=== PATIENT | male | born 1945 | race Caucasian/White ===

== ENCOUNTER 2024-03-04 16:06 | Outpatient (OUT) | payer MEDICARE, SELFPAY ==
[2024-03-04 16:32] LABS: Basophils Absolute Auto 0.1 10^3/uL (0.0-0.1); Basophils Percent Auto 1.6 % (0.2-2.0); Eosinophils Absolute Auto 0.3 10^3/uL (0.0-0.7); Eosinophils Percent Auto 3.6 % (0.9-7.0); Hematocrit 44.1 % (42.0-54.0); Hemoglobin 14.8 g/dL (14.0-18.0); Immature Granulocytes Abs Auto 0.01 10^3/uL (0.00-0.03); Immature Granulocytes Pct Auto 0.1 % (0.0-0.5); Lymphocytes Absolute Auto 2.2 10^3/uL (1.2-3.8); Mean Corpuscular HGB Conc 33.6 g/dL (29.9-35.2); Mean Corpuscular Hemoglobin 31.4 pg (25.9-34.0); Mean Corpuscular Volume 93.6 fL (80.0-94.0); Mean Platelet Volume 9.8 fL (9.5-13.5); Monocytes Absolute Auto 0.7 10^3/uL (0.3-0.8); Monocytes Percent Auto 9.8 % (1.7-12.0); Neutrophils Absolute Auto 4.2 10^3/uL (1.4-6.5); Neutrophils Percent Auto 55.9 % (43.0-75.0); Platelet Count 309 10^3/uL (150-450); Red Blood Count 4.71 10^6/uL (4.70-6.10); Red Cell Distribution Width 13.4 % (11.0-15.0); White Blood Count 7.5 10^3/uL (4.0-11.0)
[2024-03-04 16:57] LABS: Alanine Aminotransferase 23 U/L (16-63); Albumin Globulin Ratio 0.9; Albumin Level 3.5 g/dL (3.4-5.0); Alkaline Phosphatase 57 U/L (46-116); Anion Gap 11.1; Aspartate Amino Transferase 13 U/L (15-37); BUN Creatinine Ratio 22.5; Bilirubin Total 0.9 mg/dL (0.2-1.0); Calcium 9.1 mg/dL (8.5-10.1); Carbon Dioxide 29.8 mmol/L (21.0-32.0); Chloride 104 mmol/L (98-107); Estimated GFR (African America >60 (>=60); Estimated GFR (Non-African Ame >60 (>=60); Globulin 3.9 g/dL; Glucose 78 mg/dL (74-106); Potassium 3.9 mmol/L (3.5-5.1); Sodium 141 mmol/L (136-145); Thyroid Stimulating Hormone 3.018 uIU/mL (0.358-3.740); Total Protein 7.4 g/dL (6.4-8.2)
== END 2024-03-04 16:07 | disposition home or self-care (01) ==
LOC: LAB 16:12
PROVIDERS: PCP Family Medicine
DX: F41.9 Anxiety disorder, unspecified (principal); R41.89 Other symptoms and signs involving cognitive functions and awareness; R26.9 Unspecified abnormalities of gait and mobility; G25.0 Essential tremor; E55.9 Vitamin D deficiency, unspecified
CPT/HCPCS: 36415; 80053; 82306; 82607; 82746; 84443; 85025

== ENCOUNTER 2024-05-12 08:33 | Outpatient (OUT) | payer MEDICARE, SELFPAY ==
--- OUTSIDE RECORDS SUMMARY | 2024-05-12 08:39 | XMS_ITS | CCD ---
Author Organization [facility] Care Team Providers [facility] Former Name Role Phone LUAN DUMONT Unavailable Unavailable LUAN DUMONT Unavailable Unavailable LUAN DUMONT Unavailable Unavailable SHIVAM JOHN Unavailable Unavailable LUAN DUMONT Unavailable Unavailable MARIO, RIGO Unavailable Unavailable MARIO, RIGO Unavailable Unavailable NO FAMILY DOCTOR, NO FAMILY DOCTOR Unavailable Unavailable Ny Hoyos DO Primary Care Provider [phone] Young Dean Unavailable Ny Hoyos Unavailable Ny Hoyos DO Primary Care Provider [phone] Ny Hoyos DO Primary Care Provider [phone] Shayla Mirza Attending Unavailable Shayla Mirza Primary Care Unavailable Shayla Mirza Admitting Unavailable Kyler Wood Attending Unavailab Ny Galaviz Primary Care Unavailable [place] Consulting Unavailable Al Rogelio Raphael Admitting Unavailab Tiffany Brunson Consulting Unavailable Brittany Vanessa Consulting Unavailable Shivam Taylor Consulting Unavailable Armando Torres Consulting UnavailRomana Cisse Consulting Unavailable Yaya Perez Consulting Unavailable [place] Consulting Unavailable Karen Tavares Consulting Unavailable Tyler Ulrich Unavailable Krystina Goff Unavailable Jun Carrasco MD Primary Care Provider [phone] Ny Hoyos DO Primary Care Provider [phone] MILA ANDINO Attending Unavailable NY HOYOS Primary Care Unavailable NY HOYOS Primary Care Unavailable MILA ANDINO Attending Unavailable NY HOYOS Primary Care Unavailable MILA ANDINO Attending Unavailable PERLA CRUZ Attending Unavailable RASHEED LUCAS Attending Unavailable CHRISTINA HALE Attending Unavailable LAWSON YOUSIF Attending Unavailable UNALLOCATED, NOMS PROVIDER Referring Unava ilable RASHEED LUCAS Attending Unavailable LUPIS SPAIN Attending Unavailable UNALLOCATED, NOMS PROVIDER Referring Unava ilable ELIEZER DOUGLASS Attending Unavailable UNALLOCATED, NOMS PROVIDER Referring Unava ilable Allergies Allergy Classification Reported Allergen(s) Allergy Type Date of Onset Reaction(s) Facility Penicillins (antibiotic) (1 source) Penicillins; Translations: [PENICILLINS] Drug Allergy 4 [facility] Repository (1 source) Penicillins Drug allergy (disorder) 4 [facility] Repository (1 source) Penicillins Drug Allergy 4 [facility] (15 sources) Seasonal allergy; Translations: [SEASONAL ALLERGIES] Allergy to substance 0 Unknown [facility] Work Phone: (9 sources) Penicillin V Drug Allergy Unknown [facility] Other (14 sources) Penicillins Drug Allergy 4 [facility] (11 sources) Bee Sting; Translations: [BEE STING] Allergy to substance 1 Rash [facility] Work Phone: (1 source) Penicillins Drug allergy (disorder) 8 [facility] Repository Medications Current Medications Medication Drug Class(es) Dates Sig (Normalized) Sig (Original) aspirin 81 mg delayed release oral tablet (20 sources) Platelet Aggregation Inhibitor, Nonsteroidal Anti-inflammatory Drug take 1 tablet by mouth once daily aspirin, enteric coated (ASPIRIN, ENTERIC COATED) 81 mg EC tablet Take 81 mg by mouth once daily. 0 Active Comment on above: Take 81 mg by mouth. Take 81 mg by mouth once daily. azelastine hydrochloride 0.137 mg/actuat metered dose nasal spray (3 sources) Histamine-1 Receptor Antagonist Start: 10-18-2021 take 1 puff(s) nasal route twice daily Azelastine HCl 0.1 % 1 puff in each nostril Nasally Twice a day for 30 day(s) Oct, Active L7-fkmdm-V36-coffee- phosphatid (NEURIVA PLUS BRAIN PERFORMANCE) 1.7 mg-400 mcg- 2.4 mcg cap (4 sources) Start: 03-04-2024 take 1 capsule by mouth once daily E8-mrawt-T49-coff ee-phosphatid (NEURIVA PLUS BRAIN PERFORMANCE) 1.7 mg-400 mcg- 2.4 mcg cap Take 1 capsule by mouth once daily. 0 03/04/2024 Active benzonatate 100 mg oral capsule (1 source) Non-narcotic Antitussive Start: 10-17-2022 take 1 capsule by mouth every eight hours Benzonatate 100 MG 1 capsule as needed Orally Three times a day for 10 days Oct, Active busPIRone hydrochloride 10 mg oral tablet (17 sources) Start: 09-06-2023 take 2 tablets by mouth three times daily busPIRone (BUSPAR) 10 mg tablet Indications: Essential tremor , Anxiety Take 2 tablets (20 mg total) by mouth 3 (three) times a day. 540 tablet 4 09/06/2023 Active Start: 04-06-2023 End: 09-04-2023 take 2 tablets by mouth twice daily busPIRone (BUSPAR) 10 mg tablet Indications: Anxiety Take 2 tablets by mouth two times a day. 450 tablet 3 09/04/2023 Active Start: 08-10-2022 End: 11-09-2023 take 1 tablet by mouth three times daily busPIRone (BUSPAR) 10 mg tablet Indications: Anxiety Take 1 tablet by mouth three times daily. 270 tablet 3 11/09/2022 04/06/2023 Discontinued Start: 05-02-2022 End: 05-02-2023 take 1 tablet by mouth three times daily busPIRone (BUSPAR) 5 mg tablet Indications: Anxiety Take 1 tablet by mouth three times daily. 90 tablet 11 05/02/2022 08/10/2022 Discontinued Comment on above: Take 1 tablet by mely three times daily. Take 2 tablets in e morning and evening and 1 tablet in the afternoon Take 2 tablets by mo uth two times a day. calcium carbonate 1250 mg / cholecalciferol 200 unt oral tablet (2 sources) Vitamin D Start: 09-11-20 take 1 tablet by mouth once calcium-carbonate- vitamin D3 500 mg-5 mcg (200 unit) per tablet Take 1 tablet by mouth. 0 09/11/2023 Active cefuroxime 250 mg oral tablet (1 source) Cephalosporin Antibacterial Start: 09-11-20 21 take 1 tablet by mouth every twelve hours Cefuroxime Axetil 250 MG 1 tablet Orally every 12 hrs for 10 day(s) Sep, Active celecoxib 200 mg oral capsule (20 sources) Nonsteroidal Anti-inflammatory Drug Start: 09-06-20 End: 11-21-19 24 take 1 capsule by mouth in the morning celecoxib (CeleBREX) 200 mg capsule Indications: Arthritis TAKE 1 CAPSULE BY MOUTH IN THE MORNING then TAKE 1 CAPSULE BY MOUTH BEFORE bedtime 90 capsule 4 11/21/2023 Active End: 04-22-2024 take 1 capsule by mouth once daily celecoxib (CELEBREX) 200 mg capsule Take 200 mg by mouth once daily. 0 04/22/2024 Discontinued take 1 capsule by mo [facility] twice daily celecoxib (CELEBREX) 200 mg capsule Take 200 mg by mouth twice daily. 0 Active Comment on above: Take 200 mg by mouth twice daily. Take 200 mg by mouth once daily. cholecalciferol 0.125 mg oral capsule (5 sources) Vitamin D Start: 08-24-20 23 take 1 capsule by mouth once daily in the morning Cholecalciferol, Vitamin D3, 125 mcg (5,000 unit) cap Take 1 capsule by mouth every morning. 0 08/24/2023 Active Comment on above: Take 1 capsule by mo [facility] every morning. docusate sodium 100 mg oral capsule (14 sources) Start: 03-11-20 15 take 1 capsule by mouth every twelve hours as needed docusate sodium (COLACE) 100 mg capsule Take 1 capsule by mouth twice daily as needed for Constipation. 60 capsule 0 03/11/2015 Active Comment on above: Take 1 capsule by mo [facility] twice daily as needed for Constipation. fluticasone propionate 0.05 mg/actuat metered dose nasal spray (20 sources) Corticosteroid Start: 09-06-20 23 take 1 spray(s) nasal route in the morning fluticasone propionate (FLONASE) 50 mcg/actuation nasal spray Indications: Allergic rhinitis due to other allergic trigger, unspecified seasonality Administer 1 spray into each nostril in the morning. 36.4 mL 4 09/06/2023 Active take 1 spray(s) nasal route once daily fluticasone (FLONASE) 50 mcg/actuation nasal spray Use 1 [place] in each nostril once daily. 0 Active take 1 spray(s) nasal route once daily Flonase 50 MCG/ACT 1 spray in each nostril Nasally Once a day for 30 day(s) Active Comment on above: Use 1 [place] in each nostril once daily. Neuriva - (1 source) Neuriva - as dir ected Orally Active omeprazole 20 mg delayed release oral capsule (13 sources) Proton Pump Inhibitor Start: 3 take 1 capsule by mouth in the morning omeprazole (PriLOSEC) 20 mg capsule Indications: Gastroesophageal reflux disease, unspecified whether esophagitis present Take 1 capsule (20 mg total) by mouth in the morning. 90 capsule 4 09/06/2023 Active Comment on above: Take 20 mg by mouth once daily. predniSONE 20 mg oral tablet (4 sources) Start: 3 take 1 tablet by mouth every twelve hours predniSONE 20 MG 1 tablet Orally bid for 5 day(s) March, Active Start: 10-18-2021 take 2 tablets by mo [facility] every twenty-four hours predniSONE 20 MG 2 tablets Orally Once a day for 5 days Oct, Active tamsulosin hydrochloride 0.4 mg oral capsule (1 source) alpha-Adrenergic Yuli take 1 capsule by mouth once daily tamsulosin (FLOMAX) 0.4 mg capsule,extended release 24hr Take 0.4 mg by mouth nightly. 0 Active tiZANidine 2 mg oral tablet (1 source) Central alpha-2 Adrenergic Agonist Start: 023 take 1 tablet by mouth every eight hours tiZANidine HCl 2 MG 1 tablet as needed Orally Three times a day March, Active Completed/Discontinued Medications Medication Drug Class(es) Dates Sig (Normalized) Sig (Original) ALPRAZolam 0.25 mg oral tablet (2 sources) Benzodiazepine Start: 07-26-2023 End: 03-05-2024 take 1 tablet by mouth twice daily at bedtime ALPRAZolam (XANAX) 0.25 mg tablet TAKE 1 TABLET BY MOUTH TWICE DAILY (IN THE MORNING and AT BEDTIME) 0 07/26/2023 03/05/2024 Discontinued (Discontinued by another Health Care Provider) Comment on above: TAKE 1 TABLET BY MELY TH TWICE DAILY (IN THE MORNING and AT BEDTIME) atorvastatin 80 mg oral tablet (20 sources) HMG-CoA Reductase Inhibitor Start: 02-08-2023 End: 03-05-2024 atorvastatin (LIPITOR) 80 mg tablet 0.5 tablets once daily. 0 02/08/2023 03/05/2024 Discontinued Start: 01-17-2023 End: 02-08-2023 atorvastatin (LIPITOR) 80 mg tablet Start: 07-18-2021 End: 02-08-2023 take 1 tablet by mouth every twenty-four hours atorvastatin (LIPITOR) 40 mg tablet Take 1 tablet by mouth q 24 HR. 0 11/09/2022 02/08/2023 Discontinued Start: 07-18-2021 take 1 tablet by mely th every twenty-four hours Lipitor 20 MG 1 tablet Orally Once a day for 90 day(s) Jul, Not-Taking End: 05-01-2022 atorvastatin calcium (ATORVA STATIN ORAL) Take by mouth. 0 05/01/2022 Discontinued atorvastatin jolene cium (ATORVASTATIN ORAL) Take by mouth. 0 Active Comment on above: Take by mouth. Take 40 mg by mouth q 24 HR. Take 1 tablet by mely th q 24 HR. 0.5 tablets once sam ly. B6/folic/B12/coffee/ph osphatid (NEURIVA PLUS ORAL) (3 sources) End: 04-22-2024 B6/folic/B12/coffee/phosph atid (NEURIVA PLUS ORAL) Take by mouth. 0 04/22/2024 Discontinued End: 05-01-2022 B6/folic/B12/coffee/phosphat id (NEURIVA PLUS ORAL) Take by mouth once daily. 0 05/01/2022 Discontinued B6/folic/B12/cof fee/phosphatid (NEURIVA PLUS ORAL) Take by mouth once daily. 0 Active Comment on above: Take by mouth once d aily. 0.5 ml rimabotulinumtoxinb 5 000 unt/ml injection (3 sources) Start: 08-10-2022 End: 08-10-2022 botulinum toxin type b 2,500 Units injection (MYOBLOC) Start: 08-10-2022 End: 08-10-2022 botulinum toxin type b 5,000 Units injection (MYOBLOC) Start: 05-02-2022 End: 05-02-2022 botulinum toxin type b 5,000 Units injection (MYOBLOC) cetirizine hydrochloride 10 mg oral tablet (8 sources) Histamine-1 Receptor Antagonist Start: 01-18-2022 End: 11-09-2022 take 1 tablet by mouth once daily cetirizine (ZYRTEC) 10 mg tablet Take 10 mg by mouth once daily. 0 01/18/2022 11/09/2022 Discontinued Start: 10-18-2021 take 1 capsule by mo [facility] every twenty-four hours ZyrTEC Allergy 10 MG 1 capsule Orally Once a day for 90 days Oct, Active Comment on above: Take 10 mg by mouth once daily. fexofenadine hydrochloride 180 mg oral tablet (4 sources) Histamine-1 Receptor Antagonist Start: 3 End: 3 take 1 tablet by mouth once daily fexofenadine (JENNY ALLERGY) 180 mg tablet Take 1 tablet by mouth once daily. 0 02/08/2023 09/04/2023 Discontinued (Course of therapy completed) Comment on above: [facility]. Toradol 30 mg/ml (1 source) Start: 3 Toradol 30 mg/ml March, 30 mg Problems Active Problems Problem Classification Problem Date Documented Date Episodic/Chronic Anxiety disorders (8 sources) Anxiety; Translations: [Anxiety disorder, unspecified] Onset: 05-31-2023 Chronic Cardiac dysrhythmias (2 sources) Unspecified atrial flutter; Translations: [Paroxysmal atrial fibrillation] Onset: 08-15-2018 Chronic Disorders of lipid metabolism (10 sources) Mixed hyperlipidemia; Translations: [Mixed hyperlipidemia] Onset: 10-18-2021 Resolved: 10-18-2021 Chronic Esophageal disorders (1 source) Esophageal disorders Onset: 08-15-2018 Hyperplasia of prostate (15 sources) Benign prostatic hypertrophy with outflow obstruction; Translations: [Benign prostatic hyperplasia with lower urinary tract symptoms] Onset: 04-07-2016 04-07-2016 Chronic Nutritional deficiencies (2 sources) Vitamin D deficiency; Translations: [Vitamin D deficiency, unspecified] 11-21-2023 Chronic Osteoarthritis (10 sources) Arthritis; Translations: [Unspecified osteoarthritis, unspecified site] 11-21-2023 Chronic Other hereditary and degenerative nervous system conditions (20 sources) Essential tremor; Translations: [Essential tremor] Onset: 09-29-2014 09-29-2014 Chronic Other hereditary and degenerative nervous system conditions (9 sources) Intention tremor; 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] Chronic Other hereditary and degenerative nervous system conditions (2 sources) Isolated cervical dystonia; 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 Other hereditary and degenerative nervous system conditions (1 source) Essential tremor; Translations: [Essential tremor] Onset: 09-29-2014 Chronic Other nervous system disorders (1 source) Abnormal gait; Translations: [Unspecified abnormalities of gait and mobility] 03-04-2024 Episodic Other nervous system disorders (1 source) Impaired cognition; Translations: [Other symptoms and signs involving cognitive functions and awareness] 03-04-2024 Episodic Other skin disorders (9 sources) Excessive sweating; Translations: [Generalized hyperhidrosis] Episodic Other upper respiratory disease (9 sources) Seasonal allergy; Translations: [Other seasonal allergic rhinitis] Chronic Other upper respiratory disease (2 sources) Other seasonal allergic rhinitis Onset: 10-18-2021 Resolved: 12-19-2021 Chronic Other upper respiratory infections (9 sources) Upper respiratory infection; Translations: [URI (upper respiratory infection)] Episodic Residual codes; unclassified (1 source) Presence of other specified functional implants; Translations: [S/P deep brain stimulator placement] Onset: 02-29-2016 Chronic Sprains and strains (1 source) Strain of muscle, fascia and tendon of lower back, initial encounter Episodic Unclassified (1 source) Encounter for preprocedural cardiovascular examination / Z01.810(ICD-9) Onset: 08-15-2018 Unclassified (1 source) Paroxysmal tachycardia, unspecified / I47.9(ICD-9) Onset: 08-15-2018 Unclassified (1 source) Cardiomegaly / I51.7(ICD-9) Onset: 08-15-2018 Unclassified (1 source) Personal history of nicotine dependence / Z87.891(ICD-9) Onset: 08-15-2018 Unclassified (1 source) Cardiomyopathy, unspecified / I42.9(ICD-9) Onset: 08-15-2018 Unclassified (1 source) Sleep apnea, unspecified / G47.30(ICD-9) Onset: 08-15-2018 Unclassified (2 sources) Unspecified atrial flutter / I48.92(ICD-9) Onset: 08-15-2018 Unclassified (1 source) Overweight / E66.3(ICD-9) Onset: 08-15-2018 Unclassified (1 source) Body mass index (BMI) 27.0-27.9, adult / Z68.27(ICD-9) Onset: 08-15-2018 Unclassified (1 source) snf (current) use of aspirin / Z79.82(ICD-9) Onset: 08-15-2018 Unclassified (1 source) Allergy status to penicillin / Z88.0(ICD-9) Onset: 08-15-2018 Unclassified (1 source) Presence of unspecified artificial knee joint / Z96.659(ICD-9) Onset: 08-15-2018 Unclassified (1 source) Tremor, unspecified / R25.1(ICD-9) Onset: 08-15-2018 Unclassified (1 source) APPOINTMENT CANCELLED Unclassified (1 source) H53.8 - Other visual disturbances; Translations: [H53.8 - Other visual disturbances] Onset: 04-20-2022 Unclassified (1 source) R25.1 - Tremor, unspecified; Translations: [R25.1 - Tremor, unspecified] Onset: 03-11-2022 Past or Other Problems Problem Classification Problem Date Documented Date Episodic/Chronic Calculus of urinary tract (20 sources) Ureteric stone; Translations: [Calculus of ureter] Onset: 02-25-2015 03-11-2015 Episodic Disorders of teeth and jaw (1 source) Arthralgia of right temporomandibular joint Onset: 10-18-2021 Resolved: 10-18-2021 Episodic Genitourinary symptoms and ill-defined conditions (20 sources) Microscopic hematuria; Translations: [Other microscopic hematuria] Onset: 03-23-2015 03-23-2015 Episodic Headache; including migraine (20 sources) Headache; Translations: [Persistent headaches] Onset: 12-29-2014 12-29-2014 Episodic Immunizations and screening for infectious disease (1 source) Contact with and (suspected) exposure to other viral communicable diseases Onset: 09-11-2021 Resolved: 09-11-2021 Episodic Lymphadenitis (1 source) Nonspecific lymphadenitis, unspecified Onset: 09-11-2021 Resolved: 09-11-2021 Episodic Mood disorders (1 source) Mood disorders Onset: 07-19-2023 07-19-2023 Other aftercare (1 source) Encounter for removal of sutures Onset: 01-16-2022 Resolved: 01-16-2022 Episodic Other circulatory disease (14 sources) H/O: atrial fibrillation; Translations: [Personal history of other diseases of the circulatory system] Onset: 12-06-2017 12-06-2017 Episodic Other connective tissue disease (1 source) Unspecified symptoms and signs involving the nervous system; Translations: [R29.90 - Unspecified symptoms and signs involving the nervous system] Onset: 03-11-2022 Episodic Spondylosis; intervertebral disc disorders; other back problems (4 sources) Cervicalgia; Translations: [CERVICALGIA] Onset: 04-06-2017 Episodic Unclassified (1 source) Cough R05.9 Viral infection (1 source) COVID-19 Results Test Name Value Interpretation Reference Range Facility [facility] 04-22-2024 CNOV Office Visit (NRMDN) ---- YORDAN MARROQUIN ([id number]) 1945 M Date Time Provider Department 04/22/24 2:30 PM MILA ANDINO During your visit today, we recorded the following information about you: Pulse Blood pressure Weight Height 60/minute 116/57 97.5 kg 1.88 m Mila Andino APRN.CNP 04/22/2024 6:48 PM Signed [facility] - FOLLOW UP EVALUATION Ny Hoyos, [address] [facility] [place] [address] Dear Ny Hoyos, DO: I had the pleasure of seeing Mr. Marroquin for follow-up today. As you know he is a 78 year old left-handed male with a history of essential tremor since 2008. He had Right VIM DBS implanted in 2013. His battery was last replaced in January 2022 with an RC. He is seen alone. Subjective 03/04/2024 Visit: Essential tremor/DBS: Continue on current settings and I will bring you in again soon for a longer appointment Anxiety: Continue Buspar one tablet two times daily Imbalance: I have ordered physical therapy. Please let me know once you have the appointment scheduled and where and who it is with, as I would like to call them and discuss. I then may possibly order some tests. Cognition: I have ordered labs looking for contributing causes and will order an MRI as well Interval History: He said his hand tremor is pretty good and the problems he has is more related to the head tremor such as when he is eating. His head moves so much that it is hard to get the food to his mouth because it is a moving target. Anxiety has been much better. Balance is still a problem but he has not had falls. He said his memory is a little better. He is taking Neuriva. Two was too much, but taking one seems to help. Movement Disorders Medications Schedule - as of the start of the visit: Medications 6am 6pm Buspar 10mg 1 1 Questionnaires: In addition, the following activities of daily living that may be affected by tremors were evaluated: Speaking: Swallowing is ok Feeding: Not affected Bringing Liquids to Mouth: Hygiene: Not affected Dressing: Not affected Writing: Affected (severe) Working: Affected (moderate) Number of falls in the Last Month: 0 In addition, the following areas that may be affected by abnormal involuntary movements were evaluated: Daily activities Difficulties with eating: Difficulties in dressing: Difficulties with hygiene activities: Difficulties with handwriting: Difficulties with doing hobbies and other activities: Difficulties turning in bed: Difficulties getting out of bed, car or chair: Tremors/Gait/Balanc e Shaking or tremors: Walking and balance problems: Number of falls in the Last Month: 0 Gait freezing: Autonomic/Pain Lightheadeness on standing: Urinary problems: Constipation problems: Pain and other sensations: Speech/Swallowing Speech problems: Drooling: Chewing and swallowing problems: Sleep/Fatigue Sleep problems: Daytime sleepiness: Fatigue: Mood/Behavior Depression: PHQ-9 Score: 2 usually representing no significant (0-4) depression. Anxiety: JOEY-7 Total Score: 2 usually representing no significant (0-4) anxiety. Buspar is really helping. Finally, the following table shows the patient's overall global physical and mental health using the PROMIS scale: PROMIS-10 Flowsheet Row Office Visit from 03/04/2024 in Neurology Office Visit from 02/08/2023 in Neurology Global Physical Health T Score 50.8 42.3 Global Mental Health T Score 43.5 45.8 0-10 Standard Pain Scale 3 2 *PROMIS-10 scoring scale: mean = 50, over 50 is above average, under 50 is below average ALLERGIES Allergen Reactions Bee Sting Rash Penicillins Hives Seasonal Allergies Unknown Current Outpatient Medications Medication Sig dtokbzc-oheslupau-x itamin D3 500 mg-5 mcg (200 unit) per tablet Take 1 tablet by mouth. L1-vciyx-O55-coffee -phosphatid (NEURIVA PLUS BRAIN PERFORMANCE) 1.7 mg-400 mcg- 2.4 mcg cap Take 1 capsule by mouth once daily. busPIRone (BUSPAR) 10 mg tablet Take 2 tablets by mouth two times a day. Cholecalciferol, Vitamin D3, 125 mcg (5,000 unit) cap Take 1 capsule by mouth every morning. omeprazole (PRILOSEC) 20 mg capsule Take 20 mg by mouth once daily. aspirin, enteric coated (ASPIRIN, ENTERIC COATED) 81 mg EC tablet Take 81 mg by mouth once daily. fluticasone (FLONASE) 50 mcg/actuation nasal spray Use 1 [place] in each nostril once daily. docusate sodium (COLACE) 100 mg capsule Take 1 capsule by mouth twice daily as needed for Constipation. No current facility-administer ed medications for this visit. Objective Vital Signs: BP 116/57 (BP Site: Right Arm, BP Position: Sitting, BP Cuff Size: Regular Adult) Pulse 60 Ht 188 cm (6' 2 ) Wt 97.5 kg (214 lb 15.2 oz) SpO2 97% BMI 27.60 kg/m? Orthostatic Vitals: None for this encounter Weight: 97.5 (more content not included)... Normal [facility] CNCOon 04-09-2024 CNCO Letter Text [facility] 04-09-2024 CNPN Telephone ([facility]) ---- RODOLFOYORDAN Costello ([id number]) 1945 M Date Time Provider Department 04/09/24 MILA ANDINO During your visit today, we recorded the following information about you: Estrella Caballero MA 04/09/2024 3:01 PM Signed At appointment time, 3p, pt was not checked in. Went to lobby/waiting room and hallway to call for pt. Pt was not in either location. Allergies As of Date: 04/09/2024 Noted Allergy Reaction BEE STING 11/01/2021 2 - Rash PENICILLINS 03/16/2014 4 - Hives SEASONAL ALLERGIES 04/29/2020 16 - Unknown Date Reviewed: 03/04/2024 Reviewed by: Mila Andino APRN.[employer] - Fully Assessed Reason for Visit: Appointment [[id number]] Prescriptions as of 04/09/2024 - C4-woodx-P24-coffee -phosphatid (NEURIVA PLUS BRAIN PERFORMANCE) 1.7 mg-400 mcg- 2.4 mcg cap Take 1 capsule by mouth once daily. - busPIRone (BUSPAR) 10 mg tablet Take 2 tablets by mouth two times a day. - Cholecalciferol, Vitamin D3, 125 mcg (5,000 unit) cap Take 1 capsule by mouth every morning. - omeprazole (PRILOSEC) 20 mg capsule Take 20 mg by mouth once daily. - celecoxib (CELEBREX) 200 mg capsule Take 200 mg by mouth once daily. - aspirin, enteric coated (ASPIRIN, ENTERIC COATED) 81 mg EC tablet Take 81 mg by mouth once daily. - fluticasone (FLONASE) 50 mcg/actuation nasal spray Use 1 [place] in each nostril once daily. - docusate sodium (COLACE) 100 mg capsule Take 1 capsule by mouth twice daily as needed for Constipation. 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 Looks like they are available in CareEverywhere. Mila Andino APRN.[employer] 03/05/2024 4:47 PM Signed I reviewed the labs and these are wnl except his Vit D level is still low. I will have him contacted to follow up with his primary care provider about this and then the labs will be faxed to the primary care provider as well. Mila Andino APRN-Lucy Hurtado RN 03/06/2024 9:55 AM Signed Call to patient. Message from provider given PCP is Dr. Lucas on [address] in [facility] Phone number [phone] Fax number [phone] Labs faxed with confirmation of transmission received Allergies As of Date: 03/05/2024 Noted Allergy Reaction BEE STING 11/01/2021 2 - Rash PENICILLINS 03/16/2014 4 - Hives SEASONAL ALLERGIES 04/29/2020 16 - Unknown Date Reviewed: 03/04/2024 Reviewed by: Mila Andino APRN.[employer] - Fully Assessed Reason for Visit: Results [95] Cmt: Labs Prescriptions as of 03/06/2024 - Z1-ifmub-F23-coffee -phosphatid (NEURIVA PLUS BRAIN PERFORMANCE) 1.7 mg-400 mcg- 2.4 mcg cap Take 1 capsule by mouth once daily. - busPIRone (BUSPAR) 10 mg tablet Take 2 tablets by mouth two times a day. - Cholecalciferol, Vitamin D3, 125 mcg (5,000 unit) cap Take 1 capsule by mouth every morning. - omeprazole (PRILOSEC) 20 mg capsule Take 20 mg by mouth once daily. - celecoxib (CELEBREX) 200 mg capsule Take 200 mg by mouth once daily. - aspirin, enteric coated (ASPIRIN, ENTERIC COATED) 81 mg EC tablet Take 81 mg by mouth once daily. - fluticasone (FLONASE) 50 mcg/actuation nasal spray Use 1 [place] in each nostril once daily. - docusate sodium (COLACE) 100 mg capsule Take 1 capsule by mouth twice daily as needed for Constipation. 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, N13.8] 04/07/2016 Recurrent nephrolithiasis [N20.0] 04/07/2016 History of atrial fibrillation [Z86.79] 12/06/2017 Encounter Status:Closed by [facility]05[facility] ---- YORDAN MARROQUIN ([id number]) 1945 M Date Time Provider Department 03/04/24 1:30 PM MILA ANDINO During your visit today, we recorded the following information about you: Pulse Blood pressure Weight Height 62/minute 113/65 98.3 kg 1.88 m Mila Andino APRN.[facility] 03/05/2024 12:54 PM Signed [facility] - FOLLOW UP EVALUATION Ny Hoyos DO [address] [facility] [place] [address] Dear Ny Hoyos DO: I had the pleasure of seeing Mr. Marroquin for follow-up today. As you know he is a 78 year old left-handed male with a history of essential tremor since 2008. He had Right VIM DBS implanted in 2013. His battery was last replaced in January 2022 with an RC. He is seen with his . Subjective Previous Plan-09/04/2023 Visit: Essential tremor/DBS: Continue current settings (the ones from last visit that you asked to be placed back on), but if you feel you need programming, please let me know. Anxiety: Continue Buspar 10mg two tablets two times daily at the times below Updated Movement Disorders Medication Schedule: Medications 6am 4pm Buspar 10mg 2 2 Interval History: His balance has been worse and he had a fall. He last had physical therapy a few years ago. He and his feel his cognition is worse. Taking two Buspar two times daily made him spacey so he is now taking it one tablet two times daily and feels it is fairly well controlling the anxiety. Movement Disorders Medications Schedule - as of the start of the visit: Medications 6am 4pm Buspar 10mg 2 2 Questionnaires: In addition, the following activities of daily living that may be affected by tremors were evaluated: Speaking: Not affected Feeding: Affected (moderate) Bringing Liquids to Mouth: Affected (marked) Hygiene: Not affected Dressing: Not affected Writing: Affected (mild) Working: Affected (mild) Number of falls in the Last Month: 01 Mood/Behavior Depression: PHQ-9 Score: 1 usually representing no significant (0-4) depression. Anxiety: JOEY-7 Total Score: 7 usually representing mild (5-9) anxiety. Finally, the following table shows the patient's overall global physical and mental health using the PROMIS scale: PROMIS-10 Flowsheet Row Office Visit from 03/04/2024 in Neurology Office Visit from 02/08/2023 in Neurology Global Physical Health T Score 50.8 42.3 Global Mental Health T Score 43.5 45.8 0-10 Standard Pain Scale 3 2 *PROMIS-10 scoring scale: mean = 50, over 50 is above average, under 50 is below average ALLERGIES Allergen Reactions Bee Sting Rash Penicillins Hives Seasonal Allergies Unknown Current Outpatient Medications Medication Sig busPIRone (BUSPAR) 10 mg tablet Take 2 tablets by mouth two times a day. Cholecalciferol, Vitamin D3, 125 mcg (5,000 unit) cap Take 1 capsule by mouth every morning. omeprazole (PRILOSEC) 20 mg capsule Take 20 mg by mouth once daily. celecoxib (CELEBREX) 200 mg capsule Take 200 mg by mouth once daily. aspirin, enteric coated (ASPIRIN, ENTERIC COATED) 81 mg EC tablet Take 81 mg by mouth once daily. fluticasone (FLONASE) 50 mcg/actuation nasal spray Use 1 [place] in each nostril once daily. docusate sodium (COLACE) 100 mg capsule Take 1 capsule by mouth twice daily as needed for Constipation. T9-eczvt-R30-coffee -phosphatid (NEURIVA PLUS BRAIN PERFORMANCE) 1.7 mg-400 mcg- 2.4 mcg cap Take 1 capsule by mouth once daily. No current facility-administer ed medications for this visit. Objective Vital Signs: BP 113/65 (BP Site: Right Arm, BP Position: Sitting, BP Cuff Size: Regular Adult) Pulse 62 Ht 188 cm (6' 2 ) Wt 98.3 kg (216 lb 11.4 oz) SpO2 97% BMI 27.82 kg/m? Orthostatic Vitals: None for this encounter No LMP for male patient. Body mass index is 27.82 kg/m?. Movement Disorders Scales Performed: Donovan Cognitive Assessment (MoCA) Visuospatial/Execut mónica 2 Naming 3 Attention 6 Language 0 Abstraction 1 Delayed Memory 2 Orientation 6 Education < or equal to 12 years (1 is true, 0 is false) 1 MoCA Total Score 21 Aall-Tdnywx-Lrbbs Tremor Scale Voice Tremor Action and Intention: 0 - None. Head Tremor At Rest: 4 - Severe amplitude. Posture Holding: Action and Intention: RUE Tremor At Rest: 0 - None. Posture Holdin - None. Action and Intention: 1 - Slight. May be intermittent. LUE Tremor At Rest: 0 - None. Posture Holdin - None. Action and Intention: 1 - Slight. May be intermittent. Trunk Tremor At Rest: 0 - None. Posture Holding: RLE Tremor At Rest: 0 - None. Posture Holding: Action and Intention: LLE Tremor At Rest: 0 - None. Upper extremity strength is 5/5. Negative Peter's. Pertinent Studies 04/19/21 B12 [id number] 06/09/[address] Impression: Right DBS placement with resolution of pneumocephalus. No acute (more content not included)... Normal [facility] CNOVon 09-04-2023 CNOV Office Visit (NRMDN) ---- YORDAN MARROQUIN ([id number]) 1945 M Date Time Provider Department 09/04/23 11:00 AM MILA ANDINO During your visit today, we recorded the following information about you: Pulse Blood pressure Weight Height 63/minute 129/69 95.1 kg 1.88 m Mila Andino APRN.[employer] 09/04/2023 11:18 AM Signed [facility] - [place] [address] [place] [address] [place] [address] Dear Ny Hoyos DO: I had the pleasure of seeing Mr. Marroquin for follow-up today. As you know he is a 77 year old left-handed male with a history of essential tremor since 2008. He had Right VIM DBS implanted in 2013. His battery was last replaced in January 2022 with an RC. He is seen alone. Subjective Previous Plan-02/08/2023 Visit: Essential tremor/DBS: I have changed your settings today. You do have the ability, if needed, to go up by one push every 3-5 days. If you have any side effects, go back to the last tolerated setting and let me know. Please do not increase it if your tremor is well controlled. If you have any problem with these new settings (GROUP B) and need to return to the settings you came in on (GROUP A), you can do this with the following steps: -Push the [place] check button and then hold the recreation programmer up to your battery. -Using the navigator pad at the bottom of your recreation programmer, push the down arrow to put the rectangular box on the screen around the line with the letter B. -Next, push the right side arrow on the navigator pad. You will now see letters A and B. Use either the up arrow or the down arrow on the navigator pad to move the rectangular box around the desired group (Again, GROUP B is the new settings and GROUP A is the settings you came in on). -Push the [place] check button and then hold the recreation programmer up to your battery. You should now be on GROUP A. Anxiety: Increase Buspar to 10mg three times daily. If you do not tolerate it, please go back to two times daily and let me know. Patient's perception of importance for healthcare provider to let them know of research trials for which they may be eligible? Very Important Interval History: He said the most recent settings did not help as much and he wants to go back to the old settings. He has been going to [employer] three times a week and this is helping his balance. He has not had any falls. He did not tolerate more than a total of 40mg/daily of Buspar so he has settled at two tablets of the 10mg two times daily. He was prescribed Xanax elsewhere but takes it only rarely. Movement Disorders Medications Schedule - as of the start of the visit: Medications 6am 1pm Bedtime Buspar 10mg 1 1 1 ALLERGIES Allergen Reactions Bee Sting Rash Penicillins Hives Seasonal Allergies Unknown Current Outpatient Medications Medication Sig atorvastatin (LIPITOR) 80 mg tablet 0.5 tablets once daily. omeprazole (PRILOSEC) 20 mg capsule Take 20 mg by mouth once daily. celecoxib (CELEBREX) 200 mg capsule Take 200 mg by mouth once daily. aspirin, enteric coated (ASPIRIN, ENTERIC COATED) 81 mg EC tablet Take 81 mg by mouth once daily. fluticasone (FLONASE) 50 mcg/actuation nasal spray Use 1 [place] in each nostril once daily. docusate sodium (COLACE) 100 mg capsule Take 1 capsule by mouth twice daily as needed for Constipation. busPIRone (BUSPAR) 10 mg tablet Take 2 tablets by mouth two times a day. Cholecalciferol, Vitamin D3, 125 mcg (5,000 unit) cap Take 1 capsule by mouth every morning. ALPRAZolam (XANAX) 0.25 mg tablet TAKE 1 TABLET BY MOUTH TWICE DAILY (IN THE MORNING and AT BEDTIME) No current facility-administer ed medications for this visit. Objective Vital Signs: BP 129/69 (BP Site: Right Arm, BP Position: Sitting, BP Cuff Size: Regular Adult) Pulse 63 Ht 188 cm (6' 2 ) Wt 95.1 kg (209 lb 9.6 oz) SpO2 95% BMI 26.91 kg/m? Orthostatic Vitals: None for this encounter Weight: 95.1 kg (209 lb 9.6 oz) Height: 188 cm (6' 2 ) No LMP for male patient. Body mass index is 26.91 kg/m?. Movement Disorders Scales Performed: Ofwo-Jdflvx-Graxc Tremor Scale Face Tremor At Rest: 2 - Moderate amplitude. May be intermittent Voice Tremor Action and Intention: 0 - None. Head Tremor At Rest: 3 - Marked amplitude. Posture Holdin - Marked amplitude. Action and Intention: RUE Tremor At Rest: 0 - None. Posture Holdin - Moderate amplitude. May be intermittent. Action and Intention: 3 - Marked amplitude. LUE Tremor At Rest: 0 - None. Posture Holdin - Moderate amplitude. May be intermittent. Action and Intention: 3 - Marked amplitude. Trunk Tremor At Rest: 0 - None. Posture Holding: RLE Tremor At Rest: 0 - None. Posture Holding: Action and Intention: LLE Tremor At Rest: 0 - None. Pertinent Studies 6/ (more content not included)... Normal [facility] COVID + FLU Quick Testingon 10-17-2022 SARS-CoV-2 (COVID-19) RNA LARISSA+probe Ql (Unsp spec) Positive [facility] Other COVID + FLU Quick Testing Negative [facility] Other [facility] echo transthoracicon [facility] echo transthoracic [facility] Main [place] [address] [place] [address] Echocardiogram Signed Patient: Yordan Marroquin SR MR#: [id number] : 1945 Acct:[id number] Age/Sex: 76 / M ADM Date: 03/11/22 Loc: Room: [address] [place] [address] Type: DIS INOo Attending Dr: Kyler Wood MD Ordering Provider: Zaki Cali DO Date of Service: 03/13/22/ [facility] echo transthoracic: CVA Copies to: DO Juanjose Sanchez MD Height: 75 in Weight: 208 lb Performed By: SYD Isaacs BSA: 2.2 m2 BP: 160/79 mmHg HR: 101 Reason For Study: CVA History: A-Fib., HTN, Hyperlipidemia, Former Smoker, Ablation, Brain Stimulator Interpretation Summary Ejection Fraction = 55-60%. The left ventricular wall motion is normal. Mild concentric left ventricular hypertrophy. A variety of Doppler measurements indicate impaired left ventricular relaxation, which is associated with grade I/IV or mild diastolic dysfunction. Compared to prior study, there is no significant change. Procedure/Quality: A two-dimensional transthoracic echocardiogram with color flow and Doppler was performed. The study was technically fair in quality. Left Ventricle: The left ventricular size is normal. Mild concentric left ventricular hypertrophy. Ejection Fraction = 55-60%. A variety of Doppler measurements indicate impaired left ventricular relaxation, which is associated with grade I/IV or mild diastolic dysfunction. The left ventricular wall motion is normal. Right Atrium: The right atrium appears normal in size. Right Ventricle: The right ventricular size, thickness and function are normal. Aortic Valve: The aortic valve is normal in structure and function. No aortic regurgitation is present. Mitral Valve: The mitral valve is normal in structure and function. There is no mitral regurgitation noted. Tricuspid Valve: The tricuspid valve is normal in structure and function. No tricuspid regurgitation. Pulmonic Valve: The pulmonic valve is normal in structure and function. Arteries: The aortic root is normal size. Pericardium/Pleura: No pericardial effusion seen. There is no pleural effusion. IVC/Hepatic Viens: The inferior vena cava is normal in size, with a normal collapsibility index. Measurements with Normals IVSd: 1.2 cm (0.7-1.1 cm)LVIDd: 4.7 cm (3.7-5.4 cm) LVPWd: 1.2 cm (0.7-1.1 cm)LVIDs: 3.4 cm (2.3-3.6 cm) LA dimension: 4.2 cm(2.3-4.0 cm)Ao root diam: 3.4 cm(2.0-3.6 cm) Doppler with Normals MV E max khushi: 92.1 cm/sec(0.8-1.3m/s) MV A max khushi: 83.1 cm/sec(0.0-0.0m/s) MV E/A: 1.1 (<1.5) MMode/2D Measurements Calculations TAPSE: 2.9 cm FS: 26.9 % Ao root area: LVOT diam: 2.0 cm RV S Khushi: EDV(Teich): 9.0 cm2 LVOT area: 3.1 cm2 11.5 cm/sec 102.3 ml ESV(Teich): 48.5 ml EF(Teich): 52.5 % __ LVLd ap4: 6.8 cm SV(MOD-sp4): LAV(MOD-sp4): LA A2 area: 19.5 cm2 EDV(MOD-sp4): 35.5 ml 82.1 ml 72.3 ml LAV(MOD-sp2): LA A4 area: 24.3 cm2 LVLs ap4: 6.8 cm 54.9 ml LA length (vol): ESV(MOD-sp4): 5.6 cm 36.8 ml LA vol: 71.3 ml EF(MOD-sp4): 49.1 % LA vol index: 32.0 ml/m2 Doppler Measurements Calculations MV dec time: E/E' lat: MV dec slope: RAP systole: 0.35 sec 8.6 5.0 mmHg E/E' med: 267.0 cm/sec2 9.8 __ Transcribed By: SCV Performed At: 03/13/22 1142 Signed By: Juanjose Limon MD 03/13/22 1543 Normal [facility] Lipid Panelon 03-13-2022 Cholesterol [Mass/Vol] 222 mg/dL High 140-200 [facility] Comment on above: Result Comment: Chol less than 200 mg/dl low risk Chol 201-239 mg/dl borderline risk Chol 240 mg/dl and greater high risk Performed By: #### L IPID #### [facility] [address] [place] [id number] [place] Cholesterol in HDL [Mass/Vol] 41 mg/dL Normal 29-71 [facility] Comment on above: Result Comment: HDL CHOL ATP-III CLASSIFICATION Cardiovascular Risk HDL > or equal to 60 mg/dL LOW HDL < 40 mg/dL HIGH Performed By: #### L IPID #### [facility] [address] [place] [address] [place] Cholesterol.total/C holesterol in HDL [Mass ratio] 5.4 {ratio} Normal <5.0 [facility] Comment on above: Result Comment: PERF ORMED BY: [place] [address] PATHOLOGIST [employer]ER LUIS FELIPE STARK M.D. Performed By: #### L IPID #### [facility] [address] LDL Cholesterol,Calcula nandini 164 mg/dL High 0-100 [facility] Comment on above: Result Comment: LDL ATP III CLASSIFICATION LDL less than 100 mg/dL Optimal LDL 100-129 mg/dL Near or above optimal LDL 130-159 mg/dL Borderline high LDL 160-189 mg/dL High LDL greater than 189 mg/dL Very high Performed By: #### L IPID #### [address] Triglyceride w/Reflex 85 mg/dL Normal 35-149 [facility] Comment on above: Result Comment: TRIG ATP III CLASSIFICATION TRIG less than 150 mg/dL Normal TRIG 150-199 mg/dL Borderline high TRIG 200-500 mg/dL High TRIG greater than 500 mg/dL Very high Standard traceable to the Center for Disease Conrtrol and Prevention (CDC) test method. Performed By: #### L IPID #### [address] VLDL CHOLESTEROL 17 mg/dL Normal [facility] Comment on above: Performed By: #### L IPID #### [address] Basic Metabolic Panelon 05-0 Calcium [Mass/Vol] 8.5 mg/dL Normal 8.2-10.2 [facility] Comment on above: Performed By: #### B 12, T4F, TSH3, A1C WTH eA #### [place] [address] [place] Chloride [Moles/Vol] 105 mmol/L Normal 95-114 [facility] Comment on above: Performed By: #### B 12, T4F, TSH3, A1C WTH eA #### [place] [address] [place] CO2 [Moles/Vol] 24.2 mmol/L Normal 22.0-30.0 [facility] Comment on above: Performed By: #### B 12, T4F, TSH3, A1C WTH eA #### [place] [id number] [place] Creatinine [Mass/Vol] 0.68 mg/dL Normal 0.64-1.27 [facility] Comment on above: Performed By: #### B 12, T4F, TSH3, A1C WTH eA #### [facility] [address] [place] [address] [place] Creatinine Clr Calc Pharmacy 95.36 [facility] Comment on above: Performed By: #### B 12, T4F, TSH3, A1C WTH eA #### [facility] [address] Estimated GFR ( Naz > 60 [facility] Comment on above: Result Comment: GFR estimated reference range: According to KDOQI guidelines, <60 ml/min/1.73m2 is sufficient to diagnose a patient with chronic kidney disease. Performed By: #### B 12, T4F, TSH3, A1C WTH eA #### [address] Estimated GFR (Non- Am > 60 [facility] Comment on above: Performed By: #### B 12, T4F, TSH3, A1C WTH eA #### [address] Glucose [Mass/Vol] 93 mg/dL Normal 70-100 [facility] Comment on above: Result Comment: [place] Glucose Reference Range is dependent on time and content of last meal. Glucose of more than 200 mg/dL in a nonstressed, ambulatory subject supports the diagnosis of Diabetes Mellitus. ADA recommended reference range Performed By: #### B 12, T4F, TSH3, A1C WTH eA #### [address] Potassium [Moles/Vol] 3.8 mmol/L Normal 3.5-5.1 [facility] Comment on above: Performed By: #### B 12, T4F, TSH3, A1C WTH eA #### [address] Sodium [Moles/Vol] 137 mmol/L Normal 136-146 [facility] Comment on above: Performed By: #### B 12, T4F, TSH3, A1C [facility] eA #### [facility] [address] [place] [id number] [facility] Urea nitrogen [Mass/Vol] 10 mg/dL Normal 9- [facility] Comment on above: Performed By: #### B 12, T4F, TSH3, A1C [facility] eA #### [facility] [address] head stroke alert wo cono n 03-12-2022 CT head stroke alert wo con [facility] [place] [address] [place] [address] CT Scan Report Signed Patient: Yordan Marroquin SR MR#: [id number] : 1945 Acct:[id number] Age/Sex: 76 / M ADM Date: 03/11/22 Loc: Room: [address] [place] [address] Type: ADM INOo Attending Dr: Zaki Cali DO Ordering Provider: Willy Topete DO Date of Service: 03/11/22 CT/CT angio neck: left sided weakness ([id number]) CT/CT angio head: left sided weakness ([id number]) CT/CT head stroke alert wo con: left sided weakness Copies to: DO Zaki Landrum DO CT angio head, CT angio neck, CT head stroke alert wo con 03/11/2022 7:20 PM SIGNS AND SYMPTOMS: left sided weakness TECHNIQUE: Multi-detector CT angiography axial slices of the head were obtained before and during intravenous administration of IV contrast material. Sagittal, coronal, and 3-D reconstructions were performed and viewed on a separate workstation. CT was performed with one or more of the following dose reduction techniques: Automated exposure control, adjustment of the mA and/or kV according to patient size, or use of iterative reconstruction technique. Stenoses were measured using the NASCET criteria. COMPARISON: None. FINDINGS: Noncontrast head CT: Brain stimulator device is in place. No evidence of midline shift, transtentorial herniation, intra or extra-axial fluid collection, hemorrhage or definitive evidence of stroke, however evalu ation for stroke is limited due to the artifact from the patient's brain stimulator. Cortical atrophy is present with chronic microvascular ischemic changes. Posterior fossa is grossly unremarkable. Paranasal sinuses and mastoid air cells appear clear. Visualized intraorbital contents appear unremarkable. Soft tissues surrounding the bony calvarium demonstrate no acute process. Findings of the noncontrast portion of this examination was discussed with Trish Rausch RN March 11, 2022 at 1950 hours by the teleradiology service. CTA HEAD: Intracranial portions of the internal carotid arteries demonstrate mild calcification without critical stenosis or occlusion. Anterior cerebral arteries appear unremarkable. Anterior communicating artery appears unremarkable. Left MCA appears patent. Right MCA appears patent. Intracranial portions of the vertebral arteries appear unremarkable. Basilar artery appears unremarkable. Posterior inferior cerebellar arteries appear patent. Superior cerebellar arteries appear patent. Right posterior cerebral artery appears patent. Left posterior cerebral artery appears patent. Posterior communicating arteries are not clearly identified. CTA NECK: Three-vessel arch is noted. Common carotid arteries appear unremarkable. There is mild calcification and soft plaquing involving the left carotid bulb extending into the proximal left ICA causing no significant stenosis or occlusion. The mid and distal aspect of the left ICA appear unremarkable. There is minimal calcifications. Plaquing involving the right carotid bulb causing no significant stenosis or occlusion. Right internal carotid artery appears unremarkable. Vertebral arteries appear to have normal origins with minimal calcification involving the proximal right vertebral artery without significant stenosis or occlusion. Left vertebral artery appears unremarkable. No gross central airway mass. No lymphadenopathy. Parotid, submandibular and thyroid glands appear grossly unremarkable. No soft tissue swelling. Visualized lung apices are clear. Osseous structures demonstrate cervical spondylosis. CT/CT angio head IMPRESSION: Noncontrast CT demonstrates no definitive evidence of acute intracranial process. No stenosis or occlusion involving the carotid systems or major branches of the [place]. Impression dictated by: Sam aLurent Jr., DNadiaONadia03/12/2022 9:14 AM Dictation Location: [place] [address] Transcribed By: [facility] 03/12/22913 Dictated By: Sam Laurent Jr, DO 03/12/22 0859 Signed By: 03/12/2214 [facility] CT head/brain wo felecia 03-12 CT head/brain [place] [address] CT Scan Report Signed Patient: Yordan Marroquin SR MR#: [id number] : 1945 Acct:[id number] Age/Sex: 76 / M ADM Date: 03/11/22 Loc: 4N Room: 6A1437-1 Type: ADM INOo Attending Dr: Zaki Cali DO Ordering Provider: Rgoelio Kelley MD Date of Service: 03/12/22 CT/CT head/brain wo con: CVA Copies to: MD Zaki Pinedo DO CT BRAIN WITHOUT CONTRAST: CLINICAL HISTORY: Tremors. Numbness in bilateral upper and lower extremities. COMPARISON: Stroke workup 03/11/2022 TECHNIQUE: Contiguous axial unenhanced images were obtained through the brain. This CT exam was performed using one or more following dose reduction techniques: Automated exposure control, adjustment of the mA and/or kV according to patient size, or use of iterative reconstruction technique. FINDINGS: There is no evidence of midline shift, intra or extra-axial fluid collection, hemorrhage or CT evidence of stroke. Right-sided brain stimulator device is in place. Cortical atrophy with chronic microvascular ischemic changes similar to the prior study. Posterior fossa appears unremarkable. Visualized intraorbital contents appear unremarkable. Small polyp versus mucus retention cyst right maxillary sinus. The surrounding soft tissues are normal. CT/CT head/brain wo con IMPRESSION: NO SIGNIFICANT CHANGE IN BRAIN FINDINGS COMPARED TO THE PRIOR STROKE WORKUP. NO ACUTE INTRACRANIAL ABNORMALITY. Impression dictated by: Sam Laurent Jr., D.O.03/12/2022 9:18 AM Dictation Location: [place] [address] Transcribed By: [facility] 03/12/22917 Dictated By: Sam Laurent Jr, DO 03/12/22913 Signed By: 03/12/22917 Normal [facility] Complete Blood Count Auto Di ffon 03-12-2022 Basophils (Bld) [#/Vol] 0.1 10*3/uL Normal 0.0-0.2 [facility] Comment on above: Result Comment: PERF ORMED BY: [place] [address] [place] [address] PATHOLOGIST HOT ROLLER LUIS FELIPE STARK M.D. Performed By: #### B 12, T4F, TSH3, A1C WTH eA #### [facility] [address] [place] [address] [place] Basophils/100 WBC (Bld) 1.2 % Normal . [facility] Comment on above: Performed By: #### B 12, T4F, TSH3, A1C WTH eA #### [place] [address] [place] Eosinophils (Bld) [#/Vol] 0.4 10*3/uL Normal 0.0-0.45 [facility] Comment on above: Performed By: #### B 12, T4F, TSH3, A1C WT eA #### [address] Eosinophils/100 WBC (Bld) 6.5 % Normal . [facility] Comment on above: Performed By: #### B 12, T4F, TSH3, A1C WTH eA #### [address] Erythrocyte distribution width (RBC) [Ratio] 13.7 % Normal 12.0-14.8 [facility] Comment on above: Performed By: #### B 12, T4F, TSH3, A1C WTH eA #### [address] Hematocrit (Bld) [Volume fraction] 43.2 % Normal 38.8-50.0 [facility] Comment on above: Performed By: #### B 12, T4F, TSH3, A1C WTH eA #### [place] [address] [place] Hemoglobin (Bld) [Mass/Vol] 15.0 g/dL Normal 13.0-17.0 [facility] Comment on above: Performed By: #### B 12, T4F, TSH3, A1C WTH eA #### [place] [address] [place] Lymphocytes (Bld) [#/Vol] 2.2 10*3/uL Normal 1.00-4.8 [facility] Comment on above: Performed By: #### B 12, T4F, TSH3, A1C WTH eA #### [facility] [address] [place] [address] Lymphocytes/100 WBC (Bld) 39.5 % Normal . [facility] Comment on above: Performed By: #### B 12, T4F, TSH3, A1C WTH eA #### [facility] [address] [place] [address] MCH (RBC) [Entitic mass] 32.1 pg Normal 27.5-35.2 [facility] Comment on above: Performed By: #### B 12, T4F, TSH3, A1C WTH eA #### [address] MCV (RBC) [Entitic vol] 92.3 fL Normal 83.5-101 [facility] Comment on above: Performed By: #### B 12, T4F, TSH3, A1C WTH eA #### [address] Mean Corpuscular HGB Conc 34.8 g/dL Normal 32.5-35.6 [facility] Comment on above: Performed By: #### B 12, T4F, TSH3, A1C WTH eA #### [address] Monocytes (Bld) [#/Vol] 0.5 10*3/uL Normal 0.0-0.8 [facility] Comment on above: Performed By: #### B 12, T4F, TSH3, A1C WTH eA #### [place] [address] [place] Monocytes/100 WBC (Bld) 8.5 % Normal . [facility] Comment on above: Performed By: #### B 12, T4F, TSH3, A1C WTH eA #### [address] Neutrophils (Bld) [#/Vol] 2.5 10*3/uL Normal 1.8-7.7 [facility] Comment on above: Performed By: #### B 12, T4F, TSH3, A1C WTH eA #### [facility] [address] Neutrophils/100 WBC (Bld) 44.3 % Normal . [facility] Comment on above: Performed By: #### B 12, T4F, TSH3, A1C WTH eA #### [facility] [address] Nucleated RBC/100 WBC (Bld) [Ratio] 0.0 % Normal 0-0.5 [facility] Comment on above: Performed By: #### B 12, T4F, TSH3, A1C WT eA #### [address] Platelet mean volume (Bld) [Entitic vol] 8.5 fL Normal 6.6-10.1 [facility] Comment on above: Performed By: #### B 12, T4F, TSH3, A1C WT eA #### [address] Platelets (Bld) [#/Vol] 283 10*3/uL Normal 150-450 [facility] Comment on above: Performed By: #### B 12, T4F, TSH3, A1C WT eA #### [address] RBC (Bld) [#/Vol] 4.68 10*6/uL Normal 3.90-5.60 [facility] Comment on above: Performed By: #### B 12, T4F, TSH3, A1C WT eA #### [address] WBC (Bld) [#/Vol] 5.7 10*3/uL Normal 4.5-11.0 [facility] Comment on above: Performed By: #### B 12, T4F, TSH3, A1C WTH eA #### [address] Magnesiumon 03-12-2022 Magnesium [Mass/Vol] 2.0 mg/dL Normal 1.6-2.6 [facility] Comment on above: Result Comment: PERF ORMED BY: [place] [address] PATHOLOGIST HOT ROLLER LUIS FELIPE STARK M.D. Performed By: #### B 12, T4F, TSH3, A1C WTH eA #### [facility] [address] [place] [address] Vit. B12/Folate Profileon Cobalamin (Vitamin B12) [Mass/Vol] 422 pg/mL Normal 180-914 [facility] Comment on above: Order Comment: Comme nt Please add to previously drawn labs Performed By: #### V [id number] ####[address] Folate > 22.3 Normal >5.9 [facility] Comment on above: Order Comment: Comme nt Please add to previously drawn labs Result Comment: Maritza te reference range: >5.9 ng/ml The WHO technical consultation on folate and vitamin b12 deficiencies has determined that folate concentrations less than 4 ng/ml are considered deficient. PERFORMED BY: [place] [address] PATHOLOGIST HOT ROLLER LUIS FELIPE STARK M.D. Performed By: #### V [id number] ####[place] [id number] [facility] XR chest 1V portableon 03-12 XR chest 1V portable [facility] Main [place] [id number] XRay Report Signed Patient: Yordan Marroquin MR#: [id number] : 1945 Acct:[id number] Age/Sex: 76 / M ADM Date: 03/11/22 Loc: Room: [address] [place] [address] Type: ADM INOo Attending Dr: Zaki Cali DO Ordering Provider: Willy Topete DO Date of Service: 03/11/22 XR/XR chest 1V portable: Neuro Symptoms/Deficit Copies to: DO Zaki Landrum DO SINGLE VIEW CHEST CLINICAL HISTORY: Left-sided weakness. Chest pain. COMPARISON: Chest 07/24/2018 FINDINGS: Brain stimulator generator is seen. Heart is normal size. Lungs are clear. No free air. XR/XR chest 1V portable IMPRESSION: NO ACUTE FINDINGS Impression dictated by: Sam Laurent Jr., DLeeann03/12/2022 10:51 AM Dictation Location: [place] [address] Transcribed By: [facility] 03/12/22 1051 Dictated By: Sam Laurent Jr, DO 03/12/22 1046 Signed By: 03/12/22 1051 Normal [facility] A1C with Estimated Average G gabesuraj 03-11-2022 Glucose [Mass/Vol] 120 mg/dL Normal [facility] Comment on above: Result Comment: PERF ORMED BY: [place] [address] PATHOLOGIST HOT ROLLER LUIS FELIPE STARK M.D. Performed By: #### B 12, T4F, TSH3, A1C [facility] eA #### [facility] [address] HbA1c (Bld) [Mass fraction] 5.8 % High 4.3-5.6 [facility] Comment on above: Result Comment: Incr eased risk for diabetes: 5.7 - 6.4 diabetes: >6.4 glycemic control for adults with diabetes: <7.0 Performed By: #### B 12, T4F, TSH3, A1C [facility] eA #### [facility] [address] [place] [id number] [facility] B-Type Natriuretic Peptideon 03-11-2022 Natriuretic peptide B (Bld) [Mass/Vol] 35.0 pg/mL Normal 5-100 [facility] Comment on above: Result Comment: PERF ORMED BY: [place] [address] PATHOLOGIST HOT ROLLER LUIS FELIPE STARK M.D. Performed By: #### C BC, PT, PTT, CMP, BNP, HS TROP ####[facility] [id number] [place] [id number] [facility] COVID-19 Antigenon 2 COVID-19 Antigen Healthcare Worker?: N Reference Range: Negative Negative results, from patients with symptom onset beyond five days, should be treated as presumptive and confirmation with a molecular assay, if necessary, for patient management, may be performed. Negative results do not rule out COVID-19 and should not be used as the sole basis for treatment or patient management decisions, including infection control decisions. Negative results should be considered in the context of a patient's recent exposures, history and the presence of clinical signs and symptoms consistent with COVID-19. The [place] SARS Antigen JENIFER does not differentiate between SARS-CoV and SARS-CoV-2. This test was developed and its performance characteristic determined by [employer] [place] and validated at [facility]. This test has not been FDA cleared or approved. This test has been authorized by FDA under an Emergency Use Authorization (EUA). This test has been validated in accordance with the FDA's Guidance Document (Policy for Diagnostics Testing in Laboratories Certified to Perform High Complexity Testing under CLIA prior to Emergency Use Authorization for Coronavirus Disease-2019 during the Public Health Emergency) issued on February 05, 2020. This test is only authorized for the duration of time the declaration that circumstances exist justifying the authorization of the emergency use of in vitro diagnostic tests for detection of SARS-CoV-2 virus and/or diagnosis of COVID-19 infection under section 564(b)(1) of the Act, 21 U.S.C. 360bbb-3(b)(1), unless the authorization is terminated or revoked sooner. SARS-CoV+SARS-CoV-2 (COVID-19) Ag [Presence] in Respiratory specimen by Rapid immunoassay Negative for SARS Antigen by JENIFER PERFORMED BY: [facility] [address] [facility] [place] [address] PATHOLOGIST HOT ROLLER LUIS FELIPE STARK M.D. [facility] Comment on above: Performed By: #### C OVID-19 SHEBA, SOFIANEG, COVID 19 [facility] #### [facility] [address] [place] [id number] [facility] COVID-19 FRMCon 03-11-2022 SARS-CoV-2 (COVID-19) RNA LARISSA+probe Ql (Unsp spec) Negative Normal Negative [facility] Comment on above: Order Comment: Healt hcare Worker?: N Result Comment: Testing for SARS-CoV-2 by RT-PCR This test was developed and its performance characteristics determined by [employer] and validated at the [facility]. This test has not been FDA cleared or approved. This test has been authorized by FDA under an Emergency Use Authorization (EUA). This test has been validated in accordance with the FDA's Guidance Document (Policy for Diagnostics Testing in Laboratories Certified to Perform High Complexity Testing under CLIA prior to Emergency Use Authorization for Coronavirus Disease-2019 during the Public Health Emergency) issued on February 05, 2020. This test is only authorized for the duration of time the declaration that circumstances exist justifying the authorization of the emergency use of in vitro diagnostic tests for detection of SARS-CoV-2 virus and/or diagnosis of COVID-19 infection under section 564(b)(1) of the Act, 21 U.S.C. 360bbb-3(b)(1), unless the authorization is terminated or revoked sooner. PERFORMED BY: [facility] [address] [place] [address] PATHOLOGIST HOT ROLLER LUIS FELIPE STARK M.D. Performed By: #### C OVID-19 SHEBA, SOFIANEG, COVID 19 [facility] [place] ####[place] [id number] [place] [address] [facility] Complete Blood Count Auto Di ffon 03-11-2022 Basophils (Bld) [#/Vol] 0.1 10*3/uL Normal 0.0-0.2 [facility] Comment on above: Result Comment: PERF ORMED BY: [facility] [address] [place] [id number] PATHOLOGIST HOT ROLLER LUIS FELIPE STARK M.D. Performed By: #### C BC, PT, PTT, CMP, BNP, HS TROP ####[place] [id number] [place] [address] [facility] Basophils/100 WBC (Bld) 1.2 % Normal . [facility] Comment on above: Performed By: #### C BC, PT, PTT, CMP, BNP, HS TROP ####[address] Eosinophils (Bld) [#/Vol] 0.4 10*3/uL Normal 0.0-0.45 [facility] Comment on above: Performed By: #### C BC, PT, PTT, CMP, BNP, HS TROP ####[address] Eosinophils/100 WBC (Bld) 5.5 % Normal . [facility] Comment on above: Performed By: #### C BC, PT, PTT, CMP, BNP, HS TROP ####[address] Erythrocyte distribution width (RBC) [Ratio] 13.9 % Normal 12.0-14.8 [facility] Comment on above: Performed By: #### C BC, PT, PTT, CMP, BNP, HS TROP ####[address] Hematocrit (Bld) [Volume fraction] 45.8 % Normal 38.8-50.0 [facility] Comment on above: Performed By: #### C BC, PT, PTT, CMP, BNP, HS TROP ####[address] Hemoglobin (Bld) [Mass/Vol] 15.6 g/dL Normal 13.0-17.0 [facility] Comment on above: Performed By: #### C BC, PT, PTT, CMP, BNP, HS TROP ####[address] Lymphocytes (Bld) [#/Vol] 2.9 10*3/uL Normal 1.00-4.8 [facility] Comment on above: Performed By: #### C BC, PT, PTT, CMP, BNP, HS TROP ####[address] Lymphocytes/100 WBC (Bld) 44.3 % Normal . [facility] Comment on above: Performed By: #### C BC, PT, PTT, CMP, BNP, HS TROP ####[address] MCH (RBC) [Entitic mass] 31.5 pg Normal 27.5-35.2 [facility] Comment on above: Performed By: #### C BC, PT, PTT, CMP, BNP, HS TROP ####[address] MCV (RBC) [Entitic vol] 92.1 fL Normal 83.5-101 [facility] Comment on above: Performed By: #### C BC, PT, PTT, CMP, BNP, HS TROP ####[address] Mean Corpuscular HGB Conc 34.2 g/dL Normal 32.5-35.6 [facility] Comment on above: Performed By: #### C BC, PT, PTT, CMP, BNP, HS TROP ####[address] Monocytes (Bld) [#/Vol] 0.5 10*3/uL Normal 0.0-0.8 [facility] Comment on above: Performed By: #### C BC, PT, PTT, CMP, BNP, HS TROP ####[address] Monocytes/100 WBC (Bld) 8.2 % Normal . [facility] Comment on above: Performed By: #### C BC, PT, PTT, CMP, BNP, HS TROP ####[address] Neutrophils (Bld) [#/Vol] 2.6 10*3/uL Normal 1.8-7.7 [facility] Comment on above: Performed By: #### C BC, PT, PTT, CMP, BNP, HS TROP ####[address] Neutrophils/100 WBC (Bld) 40.8 % Normal . [facility] Comment on above: Performed By: #### C BC, PT, PTT, CMP, BNP, HS TROP ####[address] Nucleated RBC/100 WBC (Bld) [Ratio] 0.2 % Normal 0-0.5 [facility] Comment on above: Performed By: #### C BC, PT, PTT, CMP, BNP, HS TROP ####[address] Platelet mean volume (Bld) [Entitic vol] 8.4 fL Normal 6.6-10.1 [facility] Comment on above: Performed By: #### C BC, PT, PTT, CMP, BNP, HS TROP ####[address] Platelets (Bld) [#/Vol] 325 10*3/uL Normal 150-450 [facility] Comment on above: Performed By: #### C BC, PT, PTT, CMP, BNP, HS TROP ####[address] RBC (Bld) [#/Vol] 4.97 10*6/uL Normal 3.90-5.60 [facility] Comment on above: Performed By: #### C BC, PT, PTT, CMP, BNP, HS TROP ####[address] WBC (Bld) [#/Vol] 6.5 10*3/uL Normal 4.5-11.0 [facility] Comment on above: Performed By: #### C BC, PT, PTT, CMP, BNP, HS TROP ####[address] Comprehensive Metabolic Pane rey 03-11-2022 Albumin [Mass/Vol] 3.7 g/dL Normal 3.2-5.5 [facility] Comment on above: Performed By: #### C BC, PT, PTT, CMP, BNP, HS TROP ####[address] Albumin/Globulin [Mass ratio] 1.0 {ratio} Normal [facility] Comment on above: Performed By: #### C BC, PT, PTT, CMP, BNP, HS TROP ####[place] [id number] [facility] ALP [Catalytic activity/Vol] 46 U/L Normal 32-92 [facility] Comment on above: Performed By: #### C BC, PT, PTT, CMP, BNP, HS TROP ####[place] [phone] [facility] ALT [Catalytic activity/Vol] 21 U/L Normal 10-60 [facility] Comment on above: Performed By: #### C BC, PT, PTT, CMP, BNP, HS TROP ####[place] [id number] [facility] AST [Catalytic activity/Vol] 21 U/L Normal 10-42 [facility] Comment on above: Performed By: #### C BC, PT, PTT, CMP, BNP, HS TROP ####[place] [id number] [facility] Bilirubin [Mass/Vol] 0.5 mg/dL Normal 0.3-1.2 [facility] Comment on above: Performed By: #### C BC, PT, PTT, CMP, BNP, HS TROP ####[place] [id number] [facility] Calcium [Mass/Vol] 9.2 mg/dL Normal 8.2-10.2 [facility] Comment on above: Performed By: #### C BC, PT, PTT, CMP, BNP, HS TROP ####[place] [id number] [facility] Chloride [Moles/Vol] 101 mmol/L Normal 95-114 [facility] Comment on above: Performed By: #### C BC, PT, PTT, CMP, BNP, HS TROP ####[place] [phone] [facility] CO2 [Moles/Vol] 25.6 mmol/L Normal 22.0-30.0 [facility] Comment on above: Performed By: #### C BC, PT, PTT, CMP, BNP, HS TROP ####[address] Creatinine [Mass/Vol] 0.80 mg/dL Normal 0.64-1.27 [facility] Comment on above: Performed By: #### C BC, PT, PTT, CMP, BNP, HS TROP ####[address] Creatinine Clr Calc Pharmacy 95.36 [facility] Comment on above: Result Comment: PERF ORMED BY: [facility] [address] [facility] [place] [address] PATHOLOGIST HOT ROLLER LUIS FELIPE STARK M.D. Performed By: #### C BC, PT, PTT, CMP, BNP, HS TROP ####[address] Estimated GFR ( Naz > 60 [facility] Comment on above: Result Comment: GFR estimated reference range: According to KDOQI guidelines, <60 ml/min/1.73m2 is sufficient to diagnose a patient with chronic kidney disease. Performed By: #### C BC, PT, PTT, CMP, BNP, HS TROP ####[address] Estimated GFR (Non- Am > 60 [facility] Comment on above: Performed By: #### C BC, PT, PTT, CMP, BNP, HS TROP ####[address] Globulin (S) [Mass/Vol] 3.8 g/dL [facility] Comment on above: Performed By: #### C BC, PT, PTT, CMP, BNP, HS TROP ####[address] Glucose [Mass/Vol] 95 mg/dL Normal 70-100 [facility] Comment on above: Result Comment: [place] Glucose Reference Range is dependent on time and content of last meal. Glucose of more than 200 mg/dL in a nonstressed, ambulatory subject supports the diagnosis of Diabetes Mellitus. ADA recommended reference range Performed By: #### C BC, PT, PTT, CMP, BNP, HS TROP ####[place] [id number] [facility] Potassium [Moles/Vol] 4.1 mmol/L Normal 3.5-5.1 [facility] Comment on above: Performed By: #### C BC, PT, PTT, CMP, BNP, HS TROP ####[place] [phone] [facility] Protein [Mass/Vol] 7.5 g/dL Normal 6.1-7.9 [facility] Comment on above: Performed By: #### C BC, PT, PTT, CMP, BNP, HS TROP ####[address] Sodium [Moles/Vol] 137 mmol/L Normal 136-146 [facility] Comment on above: Performed By: #### C BC, PT, PTT, CMP, BNP, HS TROP ####[address] Urea nitrogen [Mass/Vol] 14 mg/dL Normal 9-23 [facility] Comment on above: Performed By: #### C BC, PT, PTT, CMP, BNP, HS TROP ####[place] [phone] [facility] Dipstick and Microscopicon 0 03-11-2022 Appearance (U) Cloudy Critically abnormal Clear [facility] Comment on above: Order Comment: Name Collection Type:: Clean-Voided Midstream Performed By: #### A DDONUAPLUS #### [facility] [address] [place] [id number] [place] Bacteria,Urine None Seen Normal None Seen [facility] Comment on above: Order Comment: Name Collection Type:: Clean-Voided Midstream Performed By: #### A DDONUAPLUS #### [facility] [address] [place] [id number] [place] Bilirubin,Urine Negative Normal Negative [facility] Comment on above: Order Comment: Name Collection Type:: Clean-Voided Midstream Performed By: #### A DDONUAPLUS #### [facility] [address] [place] [address] [place] Color (U) Yellow Normal Yellow [facility] Comment on above: Order Comment: Name Collection Type:: Clean-Voided Midstream Performed By: #### A DDONUAPLUS #### [facility] [address] [place] [address] [place] Glucose Ql (U) Normal Normal Normal [facility] Comment on above: Order Comment: Name Collection Type:: Clean-Voided Midstream Performed By: #### A DDONUAPLUS #### [place] [address] [place] Hyaline Casts,Urine None Seen Normal 0-8 [facility] Comment on above: Order Comment: Name Collection Type:: Clean-Voided Midstream Result Comment: PERF ORMED BY: [place] [address] PATHOLOGIST HOT ROLLER LUIS FELIPE STARK M.D. Performed By: #### A DDONUAPLUS #### [facility] [address] [place] [address] [place] Ketones Ql (U) Negative Normal Negative [facility] Comment on above: Order Comment: Name Collection Type:: Clean-Voided Midstream Performed By: #### A DDONUAPLUS #### [facility] [address] [place] [address] [place] Leukocyte esterase Test strip Ql (U) Negative Normal Negative [facility] Comment on above: Order Comment: Name Collection Type:: Clean-Voided Midstream Performed By: #### A DDONUAPLUS #### [facility] [address] [place] [address] [place] Nitrite,Urine Negative Normal Negative [facility] Comment on above: Order Comment: Name Collection Type:: Clean-Voided Midstream Performed By: #### A DDONUAPLUS #### [facility] [address] [place] [address] [place] Occult Blood,Urine Negative Normal Negative [facility] Comment on above: Order Comment: Name Collection Type:: Clean-Voided Midstream Result Comment: PERF ORMED BY: [place] [address] PATHOLOGIST HOT ROLLER LUIS FELIPE STARK M.D. Performed By: #### A DDONUAPLUS #### [address] pH (U) 6.5 [pH] Normal 5.0-9.0 [facility] Comment on above: Order Comment: Name Collection Type:: Clean-Voided Midstream Performed By: #### A DDONUAPLUS #### [address] Protein,Urine Negative Normal Negative [facility] Comment on above: Order Comment: Name Collection Type:: Clean-Voided Midstream Performed By: #### A DDONUAPLUS #### [address] RBC LM.HPF (Urine sed) [#/Area] 0 /[HPF] Normal 0-4 [facility] Comment on above: Order Comment: Name Collection Type:: Clean-Voided Midstream Performed By: #### A DDONUAPLUS #### [address] Specificy [place],Urine 1.026 Normal 1.001-1.030 [facility] Comment on above: Order Comment: Name Collection Type:: Clean-Voided Midstream Performed By: #### A DDONUAPLUS #### [address] Squamous Epithelial Cell,Urine None Seen Normal 0-2 [facility] Comment on above: Order Comment: Name Collection Type:: Clean-Voided Midstream Performed By: #### A DDONUAPLUS #### [address] Urobilinogen,Urine Normal Normal Normal [facility] Comment on above: Order Comment: Name Collection Type:: Clean-Voided Midstream Performed By: #### A DDONUAPLUS #### [address] WBC LM.HPF (Urine sed) [#/Area] 0 /[HPF] Normal 0-4 [facility] Comment on above: Order Comment: Name Collection Type:: Clean-Voided Midstream Performed By: #### A DDONUAPLUS #### [facility] [address] [place] [address] ECG 12 lead ECGon 03-11-2022 ECG 12 lead ECG [facility] [place] [address] [place] [address] Electrocardiograph Report Signed Patient: Yordan Marroquin SR MR#: [id number] : 1945 Acct:[id number] Age/Sex: 76 / M ADM Date: 03/11/22 Loc: Room: [address] [place] [address] Type: DIS INOo Attending Dr: Kyler Wood MD Ordering Provider: Willy Topete DO Date of Service: 03/11/2205/26/1919 ECG/ECG 12 lead ECG: Neuro Symptoms/Deficit Copies to: Test Reason : Blood Pressure : / mmHG Vent. Rate : 077 BPM Atrial Rate : 077 BPM P-R Int : 150 ms QRS Dur : 092 ms QT Int : 392 ms P-R-T Axes : 112 031 072 degrees QTc Int : 443 ms Normal sinus rhythm Normal ECG No previous ECGs available Confirmed by Willy Topete DO ([id number]) on 03/11/2022 8:32:24 PM Referred By: Electronically Signed By:Willy Topete DO Transcribed By: MUS Signed By Willy Topete DO 2031 Normal [facility] Free T4 (Free Thyroxine)on 0 03-11-2022 Free T4 [Mass/Vol] 0.66 ng/dL Normal 0.61-1.12 [facility] Comment on above: Performed By: #### B 12, T4F, TSH3, A1C WT eA #### [facility] [address] [place] [address] Glucose Poct Glucometerson 0 03-11-2022 Glucose [Mass/Vol] 90 mg/dL Normal [facility] Comment on above: Result Comment: [place] Glucose Reference Range is dependent on time and content of last meal. Glucose of more than 200 mg/dL in a nonstressed, ambulatory subject supports the diagnosis of Diabetes Mellitus. PERFORMED BY: [facility] [address] [id number] PATHOLOGIST HOT ROLLER LUIS FELIPE STARK M.D. Performed By: #### G LULS ####Point of Care testing, ISTAT XRay CREon 03-11-2022 Creatinine [Mass/Vol] 0.8 mg/dL Normal 0.6-1.3 [facility] Comment on above: Result Comment: ER/E SD physician is notified/shown all ISTAT results. Critical values may be confirmed by laboratory testing if deemed necessary by ER attending doctor. Performed By: #### I SCRE ####[place] [id number] [facility], ISTAT GFR ( > 60 Normal [facility] Comment on above: Result Comment: GFR estimated reference range: According to KDOQI guidelines, <60 ml/min/1.73m2 is sufficient to diagnose a patient with chronic kidney disease. PERFORMED BY: [facility] [address] [place] [address] PATHOLOGIST HOT ROLLER LUIS FELIPE STARK M.D. Performed By: #### I SCRE ####[place] [id number] [facility], ISTAT GFR (Non- Am > 60 Normal [facility] Comment on above: Performed By: #### I SCRE ####[place] [id number] [facility]oint [facility] Care testing, Partial Thromboplastin Timeo n 03-11-2022 aPTT Coag (Bld) [Time] 30.0 s Normal 25.1-36.5 [facility] Comment on above: Result Comment: PERF ORMED BY: [facility] [address] [place] [id number] PATHOLOGIST HOT ROLLER LUIS FELIPE STARK M.D. Performed By: #### C BC, PT, PTT, CMP, BNP, HS TROP ####[facility] [place] [id number] [facility] Prothrombin Time INRon 03-11 INR Coag (PPP) [Relative time] 1.0 {INR} Normal [facility] Comment on above: Result Comment: INR Therapeutic Range A) Pre- and Peroperative OAT started two weeks before surgery. NOT HIP SURGERY: 1.5 - 2.5 HIP SURGERY: 2 - 3 B) Primary and secondary prevention of venous THROMBOSIS: 2 - 3 C) Active venous thrombosis, pulmonary embolism and prevention of recurrent venous thrombosis: 2 - 3 D) Prevention of arterial thromboembolism including patients with mechanical heart valves: 3 - 4.5 Performed By: #### C BC, PT, PTT, CMP, BNP, HS TROP ####[facility] [place] [id number] [facility] PT Coag (PPP) [Time] 11.0 s Normal 9.0-12.9 [facility] Comment on above: Performed By: #### C BC, PT, PTT, CMP, BNP, HS TROP ####[place] [id number] [place] [id number] [facility] Sheba Ag Negativeon 03-11-20 Sheba Ag Negative Negative Normal Negative [facility] Comment on above: Result Comment: This is a duplicate [place] SARS Antigen (JENIFER) result to be used for statistical tracking purpose only. PERFORMED BY: [facility] [address] [place] [address] PATHOLOGIST HOT ROLLER LUIS FELIPE STARK M.D. Performed By: #### C OVID-19 SHEBA, SOFIANEG, COVID 19 [facility] #### [facility] [address] [place] [id number] [facility] Thyroid Stimulating Hormoneo n 03-11-2022 TSH Qn 2.65 m[IU]/L Normal 0.45-5.33 [facility] Comment on above: Result Comment: PERF ORMED BY: [facility] [address] [place] [address] PATHOLOGIST HOT ROLLER LUIS FELIPE STARK M.D. Performed By: #### B 12, T4F, TSH3, A1C WTH eA #### [facility] [address] [place] [id number] [place] Troponin I High Sensitivityo n 03-11-2022 Troponin I High Sensitivity 3 pg/mL Normal 0-20 [facility] Comment on above: Result Comment: PERF ORMED BY: [facility] [address] [facility] [place] [address] PATHOLOGIST HOT ROLLER LUIS FELIPE STARK M.D. Performed By: #### C BC, PT, PTT, CMP, BNP, HS TROP ####[facility] [address] [place] [id number] [facility] Vitamin B12on 03-11-2022 Cobalamin (Vitamin B12) [Mass/Vol] 468 pg/mL Normal 180-914 [facility] Comment on above: Performed By: #### B 12, T4F, TSH3, A1C WT eA #### [facility] [address] [place] [id number] [facility] COVID Quick Testingon 2020 Result Negative [facility] Other PROGRESSon 06-14-2020 PROGRESS HNO ID: [id number] Author: Interface Note Service: ? Author Type: ? Type: Progress Notes Filed: 06/14/2020 11:07 AM Note Text: The surgical encounter documentation contains information performed by a different Karen Cedeño than is indicated by the provider record. Clinical care was provided and documented by the correct provider. [facility] CNOVon 07-02-2019 CNOV Office Visit (NRESFV) ---- YORDAN MARROQUIN ([id number]) 1945 M Date Time Provider Department 07/02/19 1:30 PM MAREK RAND NRESFV During your visit today, we recorded the following information about you: Temperature Pulse Respiration Blood pressure 97.3 degrees 66/minute 18/minute 134/60 Weight Height 96.9 kg 1.88 m Marek Rand DO 07/02/2019 2:05 PM Signed [facility] Movement Disorders Neurotoxin Visit ? Date: July 02, 2019 Name: Yordan Marroquin ? Historical/ Initial Dose ? Diagnosis: Cervical dystonia (G24.3) Date of Diagnosis: 2012 Date of 1st Treatment: March 25, 2019 Type of Neurotoxin: Botox: J0585 Total amount injected: 60 units What other treatments have been tried and failed: Medications (propranolol) and DBS Estimated Duration of treatment: Will reassess after 1year Frequency of treatment: 90days ? Last Injection Notes Date of last Injection: March 25, 2019 Type of Neurotoxin: Botox: J0585 Total amount injected: 60 units Dilution: NS 1:1 Administered with EMG guidance: Yes ? ? Assessment Special features: Head Tilt (anterior flexion) and dystonic tremor; sensory trick Functional limitations (current): 3(severe) Pain (current): Yes (location) neck Effectiveness of last injection:5-10% Latency: none Wearing off since last treatment: none Side effects related to last injection: none ? ? Time Out: INFORMED CONSENT ? Yordan Marroquin Medical Record: [id number] ? Procedure: bilateral cervical muscle injections with botulinum toxin ? The risks, benefits and anticipated outcomes of the procedure, the risks and benefits of the alternatives to the procedure and the roles and tasks of the personnel to be involved were discussed with the patient and the patient consents to the procedure and agrees to proceed. ? I verify that I personally obtained Yordan Marroquin's consent. ? Marek Rand DO July 02, 2019 1:43 PM ? ? Dept of NEUROLOGICAL MU-ISM ? UNIVERSAL PROTOCOL / SAFETY CHECKLIST ? ? Sign in Communication: Completed ? Time Out: Team Confirms the Correct Patient, Correct Procedure, Correct Site and Site Marking, Correct Position (if applicable), Prep and Dry Time (if applicable). Time: 1343 ? Affirmation of Time Out: YES ? Sign Out Discussion: Completed ? Marek Rand, DO ? ? Current Injection Note Type of Neurotoxin: Botox: J0585 Total Amount drawn up: 200 units Total amount injected: 180 units Total amount wasted: 20 units Dilution: NS 1:1 Administered with EMG guidance: Yes Injection Site: Cervical dystonia: CPT 70999 ? ? Left Right Sternocleidomastoid ? ? Splenius capitus 30 30 Scalene ? ? Levator Scapulae ? ? Trapezius ? ? Semispinalis 30 30 Occipitalis 30 30 ? Lot#: [id number] Exp Date 10/2021 ? ? ? Future plan of care: Follow up: 3 months Neurotoxin Change: No Dose Change: No Initial injections previously - no ineffective with no ADRs. Will increase dose Referring Provider: MAREK RAND [[id number]] Allergies As of Date: 07/02/2019 Noted Allergy Reaction PENICILLINS 03/16/2014 4 - Hives Date Reviewed: 07/02/2019 Reviewed by: Karen Castillo Ma - Fully Assessed Reason for Visit: Botox Injection [373] Primary Visit Diagnosis:Cervical dystonia [G24.3] Prescriptions as of 07/02/2019 Sig: JENNY ALLERGY ORAL Take by mouth. ASPIRIN 81 MG TABLET,DELAYED * Take 81 mg by mouth. CLINDAMYCIN HCL 300 MG CAPSULE Take 1 capsule by mouth three* Patient not taking: Reported on 06/24/2019 TAMSULOSIN 0.4 MG CAPSULE TAKE 1 CAPSULE ONE TIME DAILY Patient not taking: Reported on 06/24/2019 MONTELUKAST 10 MG TABLET Take 10 mg by mouth daily at * FLUTICASONE PROPIONATE 50 MCG* Use 1 [place] in each nostril o* DOCUSATE SODIUM 100 MG CAPSULE Take 1 capsule by mouth twice* Patient not taking: Reported on 06/24/2019 Problem List As Of Date 07/02/2019 Noted Resolved Essential tremor [G25.0] INVALID FOR* Persistent headaches [R51] INVALID FOR* Head ache [R51] INVALID FOR* Ureteral calculus [N20.1] INVALID FOR* Renal calculi [N20.0] INVALID FOR* Calculus of kidney [N20.0] INVALID FOR* Microscopic hematuria [R31.29] INVALID FOR* S/P deep brain stimulator placement [Z96.89] INVALID FOR* 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 Follow-up and Disposition History Recorded Encounter Status:Closed by MAREK RAND DO on 07/02/19 [facility] PROGRESSon 07-02-2019 PROGRESS HNO ID: [id number] Author: Marek Rand Service: ? Author Type: Physician Type: Progress Notes Filed: 07/02/2019 2:05 PM Note Text: [facility] Movement Disorders Neurotoxin Visit ? Date: July 02, 2019 Name: Yordan Marroquin ? Historical/ Initial Dose ? Diagnosis: Cervical dystonia (G24.3) Date of Diagnosis: 2012 Date of 1st Treatment: March 25, 2019 Type of Neurotoxin: Botox: J0585 Total amount injected: 60 units What other treatments have been tried and failed: Medications (propranolol) and DBS Estimated Duration of treatment: Will reassess after 1year Frequency of treatment: 90days ? Last Injection Notes Date of last Injection: March 25, 2019 Type of Neurotoxin: Botox: J0585 Total amount injected: 60 units Dilution: NS 1:1 Administered with EMG guidance: Yes ? ? Assessment Special features: Head Tilt (anterior flexion) and dystonic tremor; sensory trick Functional limitations (current): 3(severe) Pain (current): Yes (location) neck Effectiveness of last injection:5-10% Latency: none Wearing off since last treatment: none Side effects related to last injection: none ? ? Time Out: INFORMED CONSENT ? Yordan Marroquin Medical Record: [id number] ? Procedure: bilateral cervical muscle injections with botulinum toxin ? The risks, benefits and anticipated outcomes of the procedure, the risks and benefits of the alternatives to the procedure and the roles and tasks of the personnel to be involved were discussed with the patient and the patient consents to the procedure and agrees to proceed. ? I verify that I personally obtained Yordan Marroquin's consent. ? Marek Rand DO July 02, 2019 1:43 PM ? ? Dept of NEUROLOGICAL MU-ISM ? UNIVERSAL PROTOCOL / SAFETY CHECKLIST ? ? Sign in Communication: Completed ? Time Out: Team Confirms the Correct Patient, Correct Procedure, Correct Site and Site Marking, Correct Position (if applicable), Prep and Dry Time (if applicable). Time: 1343 ? Affirmation of Time Out: YES ? Sign Out Discussion: Completed ? Marek Rand, DO ? ? Current Injection Note Type of Neurotoxin: Botox: J0585 Total Amount drawn up: 200 units Total amount injected: 180 units Total amount wasted: 20 units Dilution: NS 1:1 Administered with EMG guidance: Yes Injection Site: Cervical dystonia: CPT 93244 ? ? Left Right Sternocleidomastoid ? ? Splenius capitus 30 30 Scalene ? ? Levator Scapulae ? ? Trapezius ? ? Semispinalis 30 30 Occipitalis 30 30 ? Lot#: [id number] Exp Date 10/2021 ? ? ? Future plan of care: Follow up: 3 months Neurotoxin Change: No Dose Change: No Initial injections previously - no ineffective with no ADRs. Will increase dose Normal [facility] Vital Signs Date Time Vital Sign Value Performing Clinician Facility 04-22-2024 14:20-0400 Body height 188 cm Mila Andino APRN.LABORER [employer] Work Phone: [facility] 04-22-2024 14:20-0400 Body mass index (BMI) [Ratio] 27.6 kg/m2 Mila Andino APRN.[employer]ER [employer] Work Phone: [facility] 04-22-2024 14:20-0400 Body weight 97.5 kg Mila Andino APRN.[employer]ER [employer] Work Phone: [facility] 04-22-2024 14:20-0400 Diastolic blood pressure 57 mm[Hg] Mila Andino APRN.[employer]ER [employer] Work Phone: [facility] 04-22-2024 14:20-0400 Heart rate 60 /min Mila Andino APRN.[employer] Work Phone: [facility] 04-22-2024 14:20-0400 SaO2% (BldA) [Mass fraction] 97 % Mila Andino APRN.[employer]ER [employer] Work Phone: [facility] 04-22-2024 14:20-0400 Systolic blood pressure 116 mm[Hg] Mila Andino APRN.[employer]ER [employer] Work Phone: [facility] 03-04-2024 13:22-0400 Body height 188 cm Mila Andino APRN.[employer]ER [employer] Work Phone: [facility] 03-04-2024 13:22-0400 Body mass index (BMI) [Ratio] 27.82 kg/m2 Mila Andino TILE FITTER.[employer] Work Phone: [facility] 03-04-2024 13:22-0400 Body weight 98.3 kg Mila Andino APRN.[employer]ER [employer] Work Phone: [facility] 03-04-2024 13:22-0400 Diastolic blood pressure 65 mm[Hg] Mila Andino TILE FITTER.[employer] Work Phone: [facility] 03-04-2024 13:22-0400 Heart rate 62 /min Mila Andino TILE FITTER.[employer] Work Phone: [facility] 03-04-2024 13:22-0400 SaO2% (BldA) [Mass fraction] 97 % Mila Andino TILE FITTER.[employer]ER [employer] Work Phone: [facility] 03-04-2024 13:22-0400 Systolic blood pressure 113 mm[Hg] Mila Andino TILE FITTER.[employer]ER [employer] Work Phone: [facility] 09-04-2023 10:30-0400 Body height 188 cm Mila Andino TILE FITTER.[employer] Work Phone: [facility] 09-04-2023 10:30-0400 Body weight 95.07 kg Mila Andino TILE FITTER.[employer] Work Phone: [facility] 09-04-2023 10:30-0400 Diastolic blood pressure 69 mm[Hg] Mila Andino TILE FITTER.[employer] Work Phone: [facility] 09-04-2023 10:30-0400 Heart rate 63 /min Mila Andino APRN.LAB[employer]ER [employer] Work Phone: [facility] 09-04-2023 10:30-0400 SaO2% (BldA) [Mass fraction] 95 % Mila Andino TILE FITTER.[employer]ER [employer] Work Phone: [facility] 09-04-2023 10:30-0400 Systolic blood pressure 129 mm[Hg] Mila Andino APRN.LABORER [employer] Work Phone: [facility] 04-01-2023 11:50-0400 Body height 184.15 cm Krystina Goff Other [facility] Other 04-01-2023 11:50-0400 Body mass index (BMI) [Ratio] 26.76 kg/m2 Krystina Goff Other [facility] Other 04-01-2023 11:50-0400 Body temperature 97.5 [degF] Krystina Goff Other [facility] Other 04-01-2023 11:50-0400 Body weight 90.77 kg Krystina Goff Other [facility] Other 04-01-2023 11:50-0400 Diastolic blood pressure 92 mm[Hg] Krystina Goff Other [facility] Other 04-01-2023 11:50-0400 Respiratory rate 18 /min Krystina Goff Other [facility] Other 04-01-2023 11:50-0400 SaO2% (BldA) [Mass fraction] 94 % Krystina Goff Other [facility] Other 04-01-2023 11:50-0400 Systolic blood pressure 140 mm[Hg] Krystina Shell Other [facility] Other 02-08-2023 12:36-0400 Body height 188 cm Mila Andino APRN.[employer]ER [employer] Work Phone: [facility] 02-08-2023 12:36-0400 Body weight 94.39 kg Mila Sina TILE FITTER.[employer] Work Phone: [facility] 02-08-2023 12:36-0400 Diastolic blood pressure 65 mm[Hg] Mila Sina TILE FITTER.[employer] Work Phone: [facility] 02-08-2023 12:36-0400 Heart rate 72 /min Mila Sina TILE FITTER.[employer]ER [employer] Work Phone: [facility] 02-08-2023 12:36-0400 SaO2% (BldA) [Mass fraction] 97 % Mila Sina TILE FITTER.[employer]ER [employer] Work Phone: [facility] 02-08-2023 12:36-0400 Systolic blood pressure 106 mm[Hg] Mila Sina TILE FITTER.[employer]ER [employer] Work Phone: [facility] 11-09-2022 12:13-0500 Body height 188 cm Mila Andino TILE FITTER.[employer]ER [employer] Work Phone: [facility] 11-09-2022 12:13-0500 Body weight 94.39 kg Mila Cruzter TILE FITTER.[employer]ER [employer] Work Phone: [facility] 11-09-2022 12:13-0500 Diastolic blood pressure 76 mm[Hg] Mila Sina TILE FITTER.[employer]ER [employer] Work Phone: [facility] 11-09-2022 12:13-0500 Heart rate 72 /min Mila Cruzter TILE FITTER.[employer]ER [employer] Work Phone: [facility] 11-09-2022 12:13-0500 SaO2% (BldA) [Mass fraction] 97 % Mila Cruzter TILE FITTER.[employer]ER [employer] Work Phone: [facility] 11-09-2022 12:13-0500 Systolic blood pressure 115 mm[Hg] Mila Sina TILE FITTER.LAB[employer]ER [employer] Work Phone: [facility] 10-17-2022 10:20-0500 Body height 184.15 cm Tyler Ulrich Other [facility] Other 10-17-2022 10:20-0500 Body mass index (BMI) [Ratio] 28.89 kg/m2 Tyler Ulrich Other [facility] Other 10-17-2022 10:20-0500 Body temperature 98.5 [degF] Shaneabiola Ulrich Other [facility] Other 10-17-2022 10:20-0500 Body weight 97.98 kg Tyler Ulrich Other [facility] Other 10-17-2022 10:20-0500 Diastolic blood pressure 77 mm[Hg] Tyler Ulrich Other [facility] Other 10-17-2022 10:20-0500 Respiratory rate 18 /min Tyler Ulrich Other [facility] Other 10-17-2022 10:20-0500 SaO2% (BldA) [Mass fraction] 96 % Tyler Ulrich Other [facility] Other 10-17-2022 10:20-0500 Systolic blood pressure 120 mm[Hg] Tyler Ulrich Other [facility] Other 08-10-2022 10:39-0400 Body weight 95.25 kg Stacy Jones MD Work Phone: [facility] 08-10-2022 10:39-0400 Diastolic blood pressure 82 mm[Hg] Stacy Jones MD Work Phone: [facility] 08-10-2022 10:39-0400 Heart rate 69 /min Stacy Jones MD Work Phone: [facility] 08-10-2022 10:39-0400 SaO2% (BldA) [Mass fraction] 98 % Stacy Jones MD Work Phone: [facility] 08-10-2022 10:39-0400 Systolic blood pressure 120 mm[Hg] Stacy Jones MD Work Phone: [facility] 05-02-2022 11:45-0400 Body height 188 cm Mila Andino TILE FITTER.[employer] Work Phone: [facility] 05-02-2022 11:45-0400 Body weight 94.26 kg Mila Andino TILE FITTER.[employer] Work Phone: [facility] 05-02-2022 11:45-0400 Diastolic blood pressure 75 mm[Hg] Mila Cruzter TILE FITTER.[employer]ER [employer] Work Phone: [facility] 05-02-2022 11:45-0400 Heart rate 63 /min Mila Andino TILE FITTER.LAB[employer]ER [employer] Work Phone: [facility] 05-02-2022 11:45-0400 SaO2% (BldA) [Mass fraction] 99 % Mila Andino TILE FITTER.LAB[employer]ER [employer] Work Phone: [facility] 05-02-2022 11:45-0400 Systolic blood pressure 129 mm[Hg] Mila Andino TILE FITTER.LAB[employer]ER [employer] Work Phone: [facility] 05-02-2022 11:07-0400 Body height 188 cm Stacy Jones MD Work Phone: [facility] 05-02-2022 11:07-0400 Body weight 94.12 kg Stacy Jones MD Work Phone: [facility] 05-02-2022 11:07-0400 Diastolic blood pressure 75 mm[Hg] Stacy Jones MD Work Phone: [facility] 05-02-2022 11:07-0400 Heart rate 63 /min Stacy Jones MD Work Phone: [facility] 05-02-2022 11:07-0400 SaO2% (BldA) [Mass fraction] 99 % Stacy Jones MD Work Phone: [facility] 05-02-2022 11:07-0400 Systolic blood pressure 129 mm[Hg] Stacy Jones MD Work Phone: [facility] 01-16-2022 10:15-0400 Body height 184.15 cm Ny Schwerer Other [facility] Other 01-16-2022 10:15-0400 Body mass index (BMI) [Ratio] 28.89 kg/m2 Ny Schwerer Other [facility] Other 01-16-2022 10:15-0400 Body temperature 97.7 [degF] Ny Schwerer Other [facility] Other 01-16-2022 10:15-0400 Body weight 97.98 kg Ny Schwerer Other [facility] Other 01-16-2022 10:15-0400 Diastolic blood pressure 78 mm[Hg] Ny Schwerer Other [facility] Other 01-16-2022 10:15-0400 SaO2% (BldA) [Mass fraction] 96 % Ny Schwerer Other [facility] Other 01-16-2022 10:15-0400 Systolic blood pressure 122 mm[Hg] Ny Schwerer Other [facility] Other 10-18-2021 11:45-0500 Body height 184.15 cm Ny Schwerer Other [facility] Other 10-18-2021 11:45-0500 Body mass index (BMI) [Ratio] 28.61 kg/m2 Ny Schwerer Other [facility] Other 10-18-2021 11:45-0500 Body temperature 98.4 [degF] Ny Schwerer Other [facility] Other 10-18-2021 11:45-0500 Body weight 97.03 kg Ny Schwerer Other [facility] Other 10-18-2021 11:45-0500 Diastolic blood pressure 72 mm[Hg] Ny Schwerer Other [facility] Other 10-18-2021 11:45-0500 SaO2% (BldA) [Mass fraction] 95 % Ny Schwerer Other [facility] Other 10-18-2021 11:45-0500 Systolic blood pressure 126 mm[Hg] Ny Schwerer Other [facility] Other 09-11-2021 12:30-0500 Body height 184.15 cm Young Dean Other [facility] Other 09-11-2021 12:30-0500 Body mass index (BMI) [Ratio] 28.09 kg/m2 Young Dean Other [facility] Other 09-11-2021 12:30-0500 Body temperature 97.6 [degF] Young Jermaine Other [facility] Other 09-11-2021 12:30-0500 Body weight 95.26 kg Young Jermaine Other [facility] Other 09-11-2021 12:30-0500 Diastolic blood pressure 91 mm[Hg] Young Jermaine Other [facility] Other 09-11-2021 12:30-0500 SaO2% (BldA) [Mass fraction] 97 % Young Dean Other [facility] Other 09-11-2021 12:30-0500 Systolic blood pressure 132 mm[Hg] Young Dean Other [facility] Other Encounters Encounter Date Encounter Type Care Provider Facility Start: 05-09-2024 End: 05-09-2024 ambulatory ELIEZER DOUGLASS Not Available Start: 05-06-2024 End: 05-06-2024 ambulatory LUPIS AVELARJOSE MIGUEL Not Available Start: 05-05-2024 End: 05-05-2024 ambulatory RASHEED LUCAS Not Available Start: 04-30-2024 End: 04-30-2024 ambulatory LAWSON YOUSIF Not Available Start: 04-22-2024 End: 04-22-2024 ambulatory MILA ANDINO Facility:[facility] Start: 04-22-2024 End: 04-22-2024 Patient encounter procedure Mila Andino APRN.CNP Work Phone: Neurology Comment on above: Essential tremor (Pr imary Dx); S/P deep brain stimulator placement Start: 04-09-2024 Telephone encounter Mila mejia APRN.CNP Work Phone: Neurology Comment on above: Appointment Start: 03-05-2024 Telephone encounter Mila mejia APRN.CNP Work Phone: [facility] Comment on above: Results (Labs) Start: 03-04-2024 End: 03-04-2024 ambulatory [place] HOYOS Facility:[facility] Start: 03-04-2024 End: 03-04-2024 Patient encounter procedure Mila Andino APRN.CNP Work Phone: Neurology Comment on above: Essential tremor (Pr imary Dx); S/P deep brain stimulator placement; Anxiety; Abnormality of gait; Cognitive impairment; Vitamin D deficiency Start: 01-31-2024 End: 01-31-2024 ambulatory CHRISTINA HALE Not Available Start: 01-01-2024 End: 01-01-2024 ambulatory RASHEED LUCAS Not Available Start: 11-29-2023 End: 11-29-2023 ambulatory PERLA CRUZ Not Available Start: 11-21-2023 Daniel Carrasco MD [facility] Comment on above: Arthritis; Vitamin D deficiency Start: 09-04-2023 End: 09-04-2023 Patient encounter procedure Mila Andino APRN.CNP Work Phone: Neurology Comment on above: Essential tremor (Pr imary Dx); Anxiety; S/P deep brain stimulator placement Start: 09-04-2023 End: 09-04-2023 ambulatory [place] HOYOS Facility:[facility] Start: 04-11-2023 Telephone encounter Mila mejia APRN.CNP Work Phone: Neurology Comment on above: Appointment Start: 04-05-2023 Telephone encounter Mila mejia APRN.CNP Work Phone: [facility] Comment on above: Symptom Management Start: 04-01-2023 End: 04-01-2023 ambulatory Krystina Goff Other [facility] Other Start: 04-01-2023 Office outpatient vi sit 15 minutes Krystina Goff [facility] [place] Start: 02-08-2023 End: 02-08-2023 Patient encounter procedure Mila Adnino APRN.CNP Work Phone: Neurology Comment on above: Essential tremor (Pr imary Dx); S/P deep brain stimulator placement; Anxiety Start: 11-09-2022 End: 11-09-2022 Patient encounter procedure Mila Andino APRN.CNP Work Phone: Neurology Comment on above: Essential tremor (Pr imary Dx); S/P deep brain stimulator placement; Anxiety APPOINTMENT CANCELLE D (Primary Dx) Start: 10-17-2022 End: 10-17-2022 ambulatory Tyler Ulrich Other [facility] Other Start: 10-17-2022 Office outpatient vi sit 15 minutes Tyler Ulrich [facility] Ur[facility] Start: 08-10-2022 End: 08-10-2022 Patient encounter procedure Stacy Jones MD Work Phone: Neurology Comment on above: Cervical dystonia (P rimary Dx) Start: 05-02-2022 End: 05-02-2022 Patient encounter procedure Stacy Jones MD Work Phone: Neurology Comment on above: Cervical dystonia (P rimary Dx) Anxiety (Primary Dx) ; Essential tremor; S/P deep brain stimulator placement Start: 04-20-2022 End: 04-21-2022 ambulatory Shayla Mirza Facility:[facility] Start: 03-22-2022 Telephone encounter Mila mejia APRN.CNP Work Phone: [facility] Comment on above: Patient Request Start: 03-11-2022 End: 03-13-2022 ambulatory Kyler Wood Facility:[facility] Start: 02-15-2022 End: 02-15-2022 ambulatory Ny Schwerer Other [facility] Other Start: 02-15-2022 Telephone encounter Ny Schwerer [facility] Start: 02-09-2022 End: 02-09-2022 ambulatory Ny Schwerer Other [facility] Other Start: 02-09-2022 Telephone encounter Ny Schwerer [facility] Start: 01-16-2022 End: 01-16-2022 ambulatory Ny Schwerer Other [facility] Other Start: 01-16-2022 Office outpatient vi sit 10 minutes Ny Schwerer [facility] Start: 12-19-2021 End: 12-19-2021 ambulatory Ny Schwerer Other [facility] Other Start: 12-19-2021 Telephone encounter Ny Matsonerer [facility] Start: 2021 End: 2021 ambulatory Ny Schwerer Other [facility] Other Start: 2021 Telephone encounter Ny Schwerer [facility] Start: 10-18-2021 End: 10-18-2021 ambulatory Ny Schwerer Other [facility] Other Start: 10-18-2021 Office outpatient vi sit 25 minutes Ny Schwerer [facility] Start: 09-11-2021 End: 09-11-2021 ambulatory Young Dean Other [facility] Other Start: 09-11-2021 Office outpatient vi sit 15 minutes Young Jermaine [facility] [address] Start: 08-15-2018 End: 08-15-2018 Patient encounter RIGO MARTIN Facility:[facility] Start: 04-06-2017 End: 04-07-2017 Ambulatory LUAN Jorge [facility] Facility: Procedures Date Procedure Procedure Detail Performing Clinician Start: 07-19-2023 Adult depression screening assessment Jun Carrasco MD Work Phone: Start: 05-02-2022 Adult depression screening assessment Stacy Jones MD Work Phone: Start: 10-06-2021 Adult depression screening assessment Mila Andino APRN.[employer] Work Phone: Start: 02-29-2016 H/O: surgery S/P deep brain stimulator placement Mila Andino APRN.[employer] Work Phone: H/O: surgery S/P deep brain stimulator placement Mila Andino APRN.[employer] Work Phone: H/O: surgery S/P deep brain stimulator placement Mila Anidno APRN.[employer] Work Phone: H/O: surgery S/P deep brain stimulator placement Mila Andino TILE FITTER.[employer] Work Phone: H/O: surgery S/P deep brain stimulator placement Mila Andino TILE FITTER.[employer] Work Phone: H/O: surgery S/P deep brain stimulator placement Mila Andino TILE FITTER.[employer] Work Phone: H/O: surgery S/P deep brain stimulator placement Mila Andino TILE FITTER.[employer] Work Phone: Plan of Treatment Date Care Activity Detail Author Start: 06-29-2026 Diabetes Screening Diabetes Screenin g [facility] Start: 11-21-2024 DIABETES SCREEN DIABETES SCREEN [facility] Start: 09-06-2024 Adult BMI Screening Adult BMI Screen ing [facility] Start: 09-06-2024 Tobacco Screening Tobacco Screening [facility] Start: 08-18-2024 End: 08-18-2024 Patient encounter procedure 08/18/2024 8:30 AM EDT Office Visit [facility] [address] [place] [address] [phone] Jun Carrasco MD [address] [place] [address] [facility] Start: 07-19-2024 Depression Screening Depression Scre ening [facility] Start: 07-19-2024 Fall Risk Screening Fall Risk Screen ing [facility] Start: 07-19-2024 Medicare Annual Well ness Visit Medicare Annual Wellness Visit [facility] Start: 07-06-2024 Influenza vaccination Influenz a Vaccine (Season Ended) [facility] Start: 04-09-2024 End: 04-09-2024 Patient encounter procedure 04/09/2024 3:00 PM EDT Office Visit Neurology [address] [phone] Mila Andino APRN.[employer] [address] [place] [address] DBS adjustment Neurology Comment on above: DBS adjustment Start: 03-04-2024 End: 06-03-2024 25-hydroxyvitamin D3 [Mass/volume] in Serum or Plasma VITAMIN D 25 HYDROXY Lab Routine Anxiety Cognitive impairment Vitamin D deficiency Expected: 03/04/2024, Expires: 06/03/2024 [facility] Comment on above: Expected: 03/04/2024 , Expires: 06/03/2024 Start: 03-04-2024 End: 06-03-2024 CBC W Auto Differential panel - Blood COMPLETE BLOOD COUNT AND DIFFERENTIAL Lab Routine Anxiety Abnormality of gait Cognitive impairment Expected: 03/04/2024, Expires: 06/03/2024 [facility] Comment on above: Expected: 03/04/2024 , Expires: 06/03/2024 Start: 03-04-2024 End: 06-03-2024 Comprehensive metabolic 2000 panel - Serum or Plasma COMPREHENSIVE METABOLIC PANEL Lab Routine Essential tremor Anxiety Abnormality of gait Cognitive impairment Expected: 03/04/2024, Expires: 06/03/2024 [facility] Comment on above: Expected: 03/04/2024 , Expires: 06/03/2024 Start: 03-04-2024 End: 06-03-2024 Folate [Mass/volume] in Serum or Plasma FOLATE, SERUM Lab Routine Anxiety Abnormality of gait Cognitive impairment Expected: 03/04/2024, Expires: 06/03/2024 [facility] Comment on above: Expected: 03/04/2024 , Expires: 06/03/2024 Start: 03-04-2024 End: 06-03-2024 Thyrotropin [Units/volume] in Serum or Plasma THYROID STIMULATING HORMONE Lab Routine Anxiety Cognitive impairment Expected: 03/04/2024, Expires: 06/03/2024 [facility] Comment on above: Expected: 03/04/2024 , Expires: 06/03/2024 Start: 03-04-2024 End: 06-03-2024 VITAMIN B12 W/REFLEX VITAMIN B12 W/REFLEX Lab Routine Anxiety Abnormality of gait Cognitive impairment Expected: 03/04/2024, Expires: 06/03/2024 [facility] Work Phone: Comment on above: Expected: 03/04/2024 , Expires: 06/03/2024 Start: 12-27-2023 Covid-19 Vaccine ( season) Covid-19 Vaccine () [facility] Start: 11-05-2023 Advance Directive Discussion Advance Directive Discussion [facility] Start: 07-06-2023 Influenza vaccination C [facility] Start: 05-02-2023 Adult depression screening assessment DEPRESSION SCREENING [facility] Start: 11-05-2022 ADVANCE DIRECTIVE DISCUSSION ADVANCE DIRECTIVE DISCUSSION [facility] Start: 11-05-2022 DEPRESSION ASSESSMENT DEPRESSION ASS ESSMENT [facility] Start: 10-06-2022 Adult depression screening assessment DEPRESSION SCREENING [facility] Start: 07-06-2022 Influenza vaccination C [facility] Start: 04-14-2022 COVID-19 VACCINE (5 - Booster for Moderna series) COVID-19 VACCINE (5 - Booster for Moderna series) [facility] Start: 12-28-2021 COVID-19 VACCINE (4 - Booster for Moderna series) COVID-19 VACCINE (4 - Booster for Moderna series) [facility] Start: 11-05-2021 ADVANCE DIRECTIVE DISCUSSION ADVANCE DIRECTIVE DISCUSSION [facility] Start: 11-05-2021 DEPRESSION ASSESSMENT DEPRESSION ASS ESSMENT [facility] Start: 2011 PNEUMOCOCCAL: 65+ (1 - PCV) PNEUMOCOCCAL: 65+ (1 - PCV) [facility] Start: 2011 PNEUMOVAX AGE 65 AND OVER WITH 5YR LOOKBACK (#1) PNEUMOVAX AGE 65 AND OVER WITH 5YR LOOKBACK (#1) [facility] Start: 2006 RSV Vaccine (1 - 1-d ose 60+ series) RSV Vaccine (1 - 1-dose 60+ series) [facility] Start: 1996 Administration of varicella zoster vaccine Zoster (Shingles) [facility] (1 of 2) [facility] Start: 1996 SHINGRIX VACCINE (1 of 2) SHINGRIX VACCINE (1 of 2) [facility] Start: 1991 COLOGUARD (FIT-DNA) COLOGUARD (FIT-D NA) [facility] Start: 1991 Colonoscopy COLONOSCOPY [facility] Start: 1991 COLORECTAL CANCER SCREENING COLORECTAL CANCER SCREENING [facility] Start: [address] COLONOGRAPHY [facility] Start: 1991 FECAL OCCULT BLOOD FECAL OCCULT BLOO D [facility] Start: 1991 SIGMOIDOSCOPY SIGMOIDOSCOPY Cleshaylee [facility] Start: 1981 LIPID SCREEN LIPID SCREEN [facility] Start: 1965 DTaP,Tdap and Td Vaccines (1 - Tdap) DTaP,Tdap and Td Vaccines (1 - Tdap) [facility] Start: 1965 Urine microalbumin profile [facility] Start: 1964 Adult BMI Follow Up Plan Adult BMI Follow Up Plan [facility] Start: 1964 HEPATITIS C SCREENING HEPATITIS C [facility] Start: 1964 Hepatitis C screening Hepatitis C [facility] Immunizations Immunization Date Immunization Notes Care Provider Fa cili 01-14-2021 COVID-19 Vaccine Moderna - Documentation Purposes Only Young Dean Other [facility] Other 12-17-2020 COVID-19 Vaccine Moderna - Documentation Purposes Only Young Dean Other [facility] Other 09-18-2018 pneumococcal polysaccharide vaccine, 23 valent Jun Carrasco MD Work Phone: [facility] 08-30-2015 pneumococcal conjuga te vaccine, 13 valent Young Dean Other [facility] Other 08-05-2015 pneumococcal polysaccharide vaccine, 23 valent Young Dean Other [facility] Other Payers Date Payer Category Payer Self-pay 2017 Private Health Insurance [facility] AARP SUPPLEMENT [id number] 2017-Present [phone] [address] [place] [address] Indemnity [id number] 2017 Unknown [id number] 2015 Private Health Insurance [id number] 2012 Medicare MEDICARE MEDICAR E A AND B [id number] 2012-Present [phone] [place] [address] Medicare [id number] 2012 Medicare [id number] 2011 Medicare [id number] 1959 Medicare [id number] 1946 Unknown [id number] 1946 Unknown [id number] 1946 Unknown [id number] 1946 Unknown [id number] 1946 Unknown [id number] 1946 Unknown [id number] 1946 Unknown [id number] 1946 Unknown [id number] Unknown [id number] Unknown [id number] Social History Date Type Detail Facility Start: 03-16-2014 End: 08-10-2022 Tobacco smoking status NHIS Ex-smoker [facility] End: 11-05-1994 History of tobacco use Current smoker [facility] End: 11-05-1994 History of tobacco use Cigarette Smoker [facility] Start: 03-16-2014 End: 12-02-2022 Cigarettes smoked current (pack per day) - Reported 1 [facility] Start: 03-16-2014 End: 08-10-2022 Tobacco use and exposure Smokeless tobacco non-user [facility] Start: 01-06-2022 End: 04-22-2024 Alcohol intake Current non-drinker of alcohol (finding) [facility] Start: 02-24-2015 History SDOH Alcohol Comment quit 1991 [facility] Start: 1945 Sex Assigned At Not on file [facility] Start: 12-02-2022 End: 09-04-2023 Sex Assigned At [facility] Start: 04-22-2022 End: 08-10-2022 Exposure to SARS-CoV-2 (event) Not sure [facility] Adult Depression Screening Assessment 0 [facility] Start: 1945 Sex Assigned At Male [email or web address] Medical Equipment Procedure Code Equipment Code Equipment Origin al Text Equipment Identifier Dates Stretch-Coil Dbs Extension 60 - [id number] Start: 05-15-2014 Lead Nrstm 40cm Actv Dbs - [id number] Start: 05-05-2014 Comment on above: Description: LEAD ON LY Ipg Activa Sc Db s Coil Extn - [id number] Start: 05-15-2014 Neurostimulator Activa Sc 0-10.5v 2-250hz 0-25.5ma 2.4inx2.2in .4in - [id number] Start: 12-14-2017 Neurostimulator Activa Rc 10.5-V 2-250hz 2.2inx2.2in .4in Implantable 2 - [id number] Start: 01-06-2022 Stent Uret 6fr 2 6cm W/O Gw Inl - [id number] Start: 02-25-2015 Comment on above: Description: no stri ng Stent Uret 6fr 2 6cm W/O Gw Inl - [id number] Start: 02-25-2015 Stent Uret 6fr 2 6cm W/O Gw Inl - [id number] Start: 03-11-2015 Stent Uret 6fr 2 6cm W/O Gw Inl - [id number] Start: 03-11-2015 Clinical Notes 09-11-2021 to 04-22-2024 Patient InstructionsMila Andino APRN.LAURIE - 04/22/2024 2:41 PM EDMila Maravilla APRN.LAURIE - 04/22/2024 2:41 PM EDMila Maravilla APRN.LAURIE - 04/22/2024 2:30 PM EDTPatient Instructions Note Date & Type Note Facility 04-22-2024 Instructions Mila Andino APRN.LAURIE - 04/22/2024 2:50 PM EDT It was a pleasure to see you today. We addressed the following diagnoses: Essential tremor (primary encounter diagnosis) S/p deep brain stimulator placement My recommendations are as follows: 04/22/2024 Visit: Essential tremor: Continue current DBS settings Walking and balance: I have ordered physical therapy for you Cognition: We will continue to monitor Anxiety: Continue Buspar 10mg two times daily Movement Disorders Medication Schedule: Medications 6am 4pm Buspar 10mg 1 1 Return at or around: 02/03/25 If there are any concerns before your next visit, please call or you can send a message through [employer]. You can also now schedule and select appointments through [employer]. Mila Andino APRN.CNP documented in this encounter [facility] 04-22-2024 Note HNO ID: [id number] Author: MILA ANDINO APRN.CNP Service: ? Author Type: Nurse Practitioner Type: Procedures Filed: 04/22/2024 18:48 Note Text: DBS programming: Right chest RC-placed in January 2022 Battery: 100% with excellent coupl-LELE 01/03/36 System impedances were checked and are within normal ranges. INITIAL AND FINAL SETTINGS: ACTIVE GROUP A BASELINE SETTINGS Right VIM DBS 3 - 2+ 5.0 V (3.0-5.0) 100 uS 185 Hz Therapeutic impedance 1056 current 4.8 INACTIVE GROUP B 2-3+ 3.8 (2.0-4.4) V 60uS 130Hz Programming 03/04/24 Right VIM DBS 3 - 2+ 5.0 V 100 uS 185 Hz ++CONTACT CHANGE++ 2-3-1+ 1.5 V 60uS 185Hz 2-3-1+ 2.0V 60uS 185Hz slightly better 2-3-1+ 2.5 V 60uS 185Hz strong numbness in his leg and fingers that took a few minutes to go away 2-3-1+ 2.8 V 60uS 185Hz numbness returned Can explore more but ran out of time Programming 09/04/23 Analysis done. I switched back to Group A and it was strong so I backed down and slowly went back up and this was tolerated better. Programming 02/08/23 Right VIM DBS 3 - 2+ 5.0 V 100 uS 185 Hz BASELINE SETTINGS ++CONTACT CHANGE++ 2-3+ 3.5 V 60uS 130Hz no tremor with rest, ftn, or postural and spiral looks good. Name looks better as well. 2-3+ 3.8 V 60uS 130HZ Can also drink from a cup without hand tremor or spilling (when at mouth, slightly more difficult due to head tremor but still can do it without spilling-head is better too but not sure if he is more relaxed or actually related 2-3+ 4.2V-4.5V 60uS 130Hz transient tingling 2-3+ 4.6V 60uS 130Hz full body numbness that is uncomfortable and repeatable-THRESHOLD REACHED We discussed trying for other settings that work also, but he declined further programming. Programming 02/17/21: I turned it off initially to see if gait improved with it off and his gait is unchanged with DBS off. 3 - 2+ 4.5 V 90 uS 185 Hz BASELINE SETTINGS 1-2-3+ 1.5V 60uS 185Hz Tingling in his fingers, transient 1-2-3+ 1.6-3.5V 60uS 185Hz No change in head tremor and developed non-transient parasthesias Right VIM DBS Programming: -I put him back on GROUP A (previous settings) at his request. He was fine at first, but after approximately 5-10 seconds, his left eye closed and his left lip pulled up and he could not speak. I immediately took it down to 1.8V and after a few seconds it went away. I then slowly increased it back up over time. When I got to 2.6V, he started to feel the left eye started to close and it did not go away. I tried this a few times going slower each time, but I could never get past 2.7V before he started noticing changes. Immediately upon changing to Group B he said he felt better. Returned to baseline: 3 - 2+ 4.5 V 90 uS 185 Hz BASELINE 3 - 2+ 4.6 V 90 uS 185 Hz Handwriting improved but requires more concentration, no side effects 3 - 2+ 4.7 V 90 uS 185 Hz Further improvement noted without s/e 3 - 2+ 4.8 V 90 uS 185 Hz Further improvement noted without s/e 3 - 2+ 4.9 V 90 uS 185 Hz No change 3 - 2+ 5.0 V 90 uS 185 Hz No change 3 - 2+ 4.5 V 100 uS 185 Hz Head tremor may be worse but action and postural tremor are controlled 3 - 2+ 4.6 V-4.8V 100 uS 185 Hz Head improved and the writing improved the most at 4.7-4.8, no side effects 3 - 2+ 4.8 V 90 uS 185 Hz These are the settings he felt best on before, but this time while still good, he did have a little more difficulty and his writing was slightly more shaky 3 - 2+ 4.9 V 100 uS 185 Hz Further improvement noted without s/e 3 - 2+ 5.0 V 100uS 185 Hz Other than slight tremor getting started with the spiral, there was not any tremor with the spiral otherwise or with writing and he said this feels the best it has all day. He also did not have any left hand tremor at rest, with action or with posture. Previous Right VIM programmin - C+ 3.0 V 90 uS 185 Hz Baseline settings 3 - C+ 3.2 V 90 uS 185 Hz Strong paraesthesias and starting to feel like his eye is closing (previously seen by KW as well) THRESHOLD REACHED CONTACT CHANGE 3 - 2+ 2.0 V 90 uS 185 Hz Difficult to write 3 - 2+ 2.5 V 90 uS 185 Hz better writing 3 - 2+ 3.0 V 90 uS 185 Hz Writing continues to improve but still not as good as baseline 3 - 2+ 3.5 V 90 uS 185 Hz No change 3 - 2+ 4.0 V 90 uS 185 Hz Writing may be better than baseline-no action or postural tremor 3 - 2+ 4.3 V 90 uS 185 Hz Even better, with the exception of a few letters in the middle of his last name, it is more legible than baseline 3 - 2+ 4.5 V 90 uS 185 Hz Writing even more improved and h (more content not included)... [facility] 04-22-2024 Procedure note DBS programming: Right chest RC-placed in January 2022 Battery: 100% with excellent coupl-LELE 01/03/36 System impedances were checked and are within normal ranges. INITIAL AND FINAL SETTINGS: ACTIVE GROUP A BASELINE SETTINGS Right VIM DBS 3 - 2+ 5.0 V (3.0-5.0) 100 uS 185 Hz Therapeutic impedance 1056 current 4.8 INACTIVE GROUP B 2-3+ 3.8 (2.0-4.4) V 60uS 130Hz Programming 03/04/24 Right VIM DBS 3 - 2+ 5.0 V 100 uS 185 Hz ++CONTACT CHANGE++ 2-3-1+ 1.5 V 60uS 185Hz 2-3-1+ 2.0V 60uS 185Hz slightly better 2-3-1+ 2.5 V 60uS 185Hz strong numbness in his leg and fingers that took a few minutes to go away 2-3-1+ 2.8 V 60uS 185Hz numbness returned Can explore more but ran out of time Programming 09/04/23 Analysis done. I switched back to Group A and it was strong so I backed down and slowly went back up and this was tolerated better. Programming 02/08/23 Right VIM DBS 3 - 2+ 5.0 V 100 uS 185 Hz BASELINE SETTINGS ++CONTACT CHANGE++ 2-3+ 3.5 V 60uS 130Hz no tremor with rest, ftn, or postural and spiral looks good. Name looks better as well. 2-3+ 3.8 V 60uS 130HZ Can also drink from a cup without hand tremor or spilling (when at mouth, slightly more difficult due to head tremor but still can do it without spilling-head is better too but not sure if he is more relaxed or actually related 2-3+ 4.2V-4.5V 60uS 130Hz transient tingling 2-3+ 4.6V 60uS 130Hz full body numbness that is uncomfortable and repeatable-THRESHOLD REACHED We discussed trying for other settings that work also, but he declined further programming. Programming 02/17/21: I turned it off initially to see if gait improved with it off and his gait is unchanged with DBS off. 3 - 2+ 4.5 V 90 uS 185 Hz BASELINE SETTINGS 1-2-3+ 1.5V 60uS 185Hz Tingling in his fingers, transient 1-2-3+ 1.6-3.5V 60uS 185Hz No change in head tremor and developed non-transient parasthesias Right VIM DBS Programming: -I put him back on GROUP A (previous settings) at his request. He was fine at first, but after approximately 5-10 seconds, his left eye closed and his left lip pulled up and he could not speak. I immediately took it down to 1.8V and after a few seconds it went away. I then slowly increased it back up over time. When I got to 2.6V, he started to feel the left eye started to close and it did not go away. I tried this a few times going slower each time, but I could never get past 2.7V before he started noticing changes. Immediately upon changing to Group B he said he felt better. Returned to baseline: 3 - 2+ 4.5 V 90 uS 185 Hz BASELINE 3 - 2+ 4.6 V 90 uS 185 Hz Handwriting improved but requires more concentration, no side effects 3 - 2+ 4.7 V 90 uS 185 Hz Further improvement noted without s/e 3 - 2+ 4.8 V 90 uS 185 Hz Further improvement noted without s/e 3 - 2+ 4.9 V 90 uS 185 Hz No change 3 - 2+ 5.0 V 90 uS 185 Hz No change 3 - 2+ 4.5 V 100 uS 185 Hz Head tremor may be worse but action and postural tremor are controlled 3 - 2+ 4.6 V-4.8V 100 uS 185 Hz Head improved and the writing improved the most at 4.7-4.8, no side effects 3 - 2+ 4.8 V 90 uS 185 Hz These are the settings he felt best on before, but this time while still good, he did have a little more difficulty and his writing was slightly more shaky 3 - 2+ 4.9 V 100 uS 185 Hz Further improvement noted without s/e 3 - 2+ 5.0 V 100uS 185 Hz Other than slight tremor getting started with the spiral, there was not any tremor with the spiral otherwise or with writing and he said this feels the best it has all day. He also did not have any left hand tremor at rest, with action or with posture. Previous Right VIM programmin - C+ 3.0 V 90 uS 185 Hz Baseline settings 3 - C+ 3.2 V 90 uS 185 Hz Strong paraesthesias and starting to feel like his eye is closing (previously seen by KW as well) THRESHOLD REACHED CONTACT CHANGE 3 - 2+ 2.0 V 90 uS 185 Hz Difficult to write 3 - 2+ 2.5 V 90 uS 185 Hz better writing 3 - 2+ 3.0 V 90 uS 185 Hz Writing continues to improve but still not as good as baseline 3 - 2+ 3.5 V 90 uS 185 Hz No change 3 - 2+ 4.0 V 90 uS 185 Hz Writing may be better than baseline-no action or postural tremor 3 - 2+ 4.3 V 90 uS 185 Hz Even better, with the exception of a few letters in the middle of his last name, it is more legible than baseline 3 - 2+ 4.5 V 90 uS 185 Hz Writing even more improved and he said it is the best it has been in a while I had planned on looking for side effect threshold to look for and program a range even though the plan was to keep it on these settings, however, he was feeling so good so he did not want to do that. Of note, when I programmed his old settings back into Group A, as it neared and was at the settings, he felt less relaxed and his eye started closing but then relaxed. [facility] 04-22-2024 Procedure note DBS programming: Right chest RC-placed in January 2022 Battery: 100% with excellent coupl-LELE 01/03/36 System impedances were checked and are within normal ranges. INITIAL AND FINAL SETTINGS: ACTIVE GROUP A BASELINE SETTINGS Right VIM DBS 3 - 2+ 5.0 V (3.0-5.0) 100 uS 185 Hz Therapeutic impedance 1056 current 4.8 INACTIVE GROUP B 2-3+ 3.8 (2.0-4.4) V 60uS 130Hz Programming 03/04/24 Right VIM DBS 3 - 2+ 5.0 V 100 uS 185 Hz ++CONTACT CHANGE++ 2-3-1+ 1.5 V 60uS 185Hz 2-3-1+ 2.0V 60uS 185Hz slightly better 2-3-1+ 2.5 V 60uS 185Hz strong numbness in his leg and fingers that took a few minutes to go away 2-3-1+ 2.8 V 60uS 185Hz numbness returned Can explore more but ran out of time Programming 09/04/23 Analysis done. I switched back to Group A and it was strong so I backed down and slowly went back up and this was tolerated better. Programming 02/08/23 Right VIM DBS 3 - 2+ 5.0 V 100 uS 185 Hz BASELINE SETTINGS ++CONTACT CHANGE++ 2-3+ 3.5 V 60uS 130Hz no tremor with rest, ftn, or postural and spiral looks good. Name looks better as well. 2-3+ 3.8 V 60uS 130HZ Can also drink from a cup without hand tremor or spilling (when at mouth, slightly more difficult due to head tremor but still can do it without spilling-head is better too but not sure if he is more relaxed or actually related 2-3+ 4.2V-4.5V 60uS 130Hz transient tingling 2-3+ 4.6V 60uS 130Hz full body numbness that is uncomfortable and repeatable-THRESHOLD REACHED We discussed trying for other settings that work also, but he declined further programming. Programming 02/17/21: I turned it off initially to see if gait improved with it off and his gait is unchanged with DBS off. 3 - 2+ 4.5 V 90 uS 185 Hz BASELINE SETTINGS 1-2-3+ 1.5V 60uS 185Hz Tingling in his fingers, transient 1-2-3+ 1.6-3.5V 60uS 185Hz No change in head tremor and developed non-transient parasthesias Right VIM DBS Programming: -I put him back on GROUP A (previous settings) at his request. He was fine at first, but after approximately 5-10 seconds, his left eye closed and his left lip pulled up and he could not speak. I immediately took it down to 1.8V and after a few seconds it went away. I then slowly increased it back up over time. When I got to 2.6V, he started to feel the left eye started to close and it did not go away. I tried this a few times going slower each time, but I could never get past 2.7V before he started noticing changes. Immediately upon changing to Group B he said he felt better. Returned to baseline: 3 - 2+ 4.5 V 90 uS 185 Hz BASELINE 3 - 2+ 4.6 V 90 uS 185 Hz Handwriting improved but requires more concentration, no side effects 3 - 2+ 4.7 V 90 uS 185 Hz Further improvement noted without s/e 3 - 2+ 4.8 V 90 uS 185 Hz Further improvement noted without s/e 3 - 2+ 4.9 V 90 uS 185 Hz No change 3 - 2+ 5.0 V 90 uS 185 Hz No change 3 - 2+ 4.5 V 100 uS 185 Hz Head tremor may be worse but action and postural tremor are controlled 3 - 2+ 4.6 V-4.8V 100 uS 185 Hz Head improved and the writing improved the most at 4.7-4.8, no side effects 3 - 2+ 4.8 V 90 uS 185 Hz These are the settings he felt best on before, but this time while still good, he did have a little more difficulty and his writing was slightly more shaky 3 - 2+ 4.9 V 100 uS 185 Hz Further improvement noted without s/e 3 - 2+ 5.0 V 100uS 185 Hz Other than slight tremor getting started with the spiral, there was not any tremor with the spiral otherwise or with writing and he said this feels the best it has all day. He also did not have any left hand tremor at rest, with action or with posture. Previous Right VIM programmin - C+ 3.0 V 90 uS 185 Hz Baseline settings 3 - C+ 3.2 V 90 uS 185 Hz Strong paraesthesias and starting to feel like his eye is closing (previously seen by ROMAN as well) THRESHOLD REACHED CONTACT CHANGE 3 - 2+ 2.0 V 90 uS 185 Hz Difficult to write 3 - 2+ 2.5 V 90 uS 185 Hz better writing 3 - 2+ 3.0 V 90 uS 185 Hz Writing continues to improve but still not as good as baseline 3 - 2+ 3.5 V 90 uS 185 Hz No change 3 - 2+ 4.0 V 90 uS 185 Hz Writing may be better than baseline-no action or postural tremor 3 - 2+ 4.3 V 90 uS 185 Hz Even better, with the exception of a few letters in the middle of his last name, it is more legible than baseline 3 - 2+ 4.5 V 90 uS 185 Hz Writing even more improved and he said it is the best it has been in a while I had planned on looking for side effect threshold to look for and program a range even though the plan was to keep it on these settings, however, he was feeling so good so he did not want to do that. Of note, when I programmed his old settings back into Group A, as it neared and was at the settings, he felt less relaxed and his eye started closing but then relaxed. documented in this encounter [facility] 04-22-2024 Note HNO ID: [id number] Author: MILA ANDINO APRN.CNP Service: ? Author Type: Nurse Practitioner Type: Progress Notes Filed: 04/22/2024 18:48 Note Text: [facility] - FOLLOW UP EVALUATION Ny Hoyos DO [address] [place] [address] Dear Ny Hoyos DO: I had the pleasure of seeing Mr. Marroquin for follow-up today. As you know he is a 78 year old left-handed male with a history of essential tremor since 2008. He had Right VIM DBS implanted in 2013. His battery was last replaced in January 2022 with an RC. He is seen alone. Subjective 03/04/2024 Visit: Essential tremor/DBS: Continue on current settings and I will bring you in again soon for a longer appointment Anxiety: Continue Buspar one tablet two times daily Imbalance: I have ordered physical therapy. Please let me know once you have the appointment scheduled and where and who it is with, as I would like to call them and discuss. I then may possibly order some tests. Cognition: I have ordered labs looking for contributing causes and will order an MRI as well Interval History: He said his hand tremor is pretty good and the problems he has is more related to the head tremor such as when he is eating. His head moves so much that it is hard to get the food to his mouth because it is a moving target. Anxiety has been much better. Balance is still a problem but he has not had falls. He said his memory is a little better. He is taking Neuriva. Two was too much, but taking one seems to help. Movement Disorders Medications Schedule - as of the start of the visit: Medications 6am 6pm Buspar 10mg 1 1 Questionnaires: In addition, the following activities of daily living that may be affected by tremors were evaluated: Speaking: Swallowing is ok Feeding: Not affected Bringing Liquids to Mouth: Hygiene: Not affected Dressing: Not affected Writing: Affected (severe) Working: Affected (moderate) Number of falls in the Last Month: 0 In addition, the following areas that may be affected by abnormal involuntary movements were evaluated: Daily activities Difficulties with eating: Difficulties in dressing: Difficulties with hygiene activities: Difficulties with handwriting: Difficulties with doing hobbies and other activities: Difficulties turning in bed: Difficulties getting out of bed, car or chair: Tremors/Gait/Balance Shaking or tremors: Walking and balance problems: Number of falls in the Last Month: 0 Gait freezing: Autonomic/Pain Lightheadeness on standing: Urinary problems: Constipation problems: Pain and other sensations: Speech/Swallowing Speech problems: Drooling: Chewing and swallowing problems: Sleep/Fatigue Sleep problems: Daytime sleepiness: Fatigue: Mood/Behavior Depression: PHQ-9 Score: 2 usually representing no significant (0-4) depression. Anxiety: JOEY-7 Total Score: 2 usually representing no significant (0-4) anxiety. Buspar is really helping. Finally, the following table shows the patient's overall global physical and mental health using the PROMIS scale: PROMIS-10 Flowsheet Row Office Visit from 03/04/2024 in Neurology Office Visit from 02/08/2023 in Neurology Global Physical Health T Score 50.8 42.3 Global Mental Health T Score 43.5 45.8 0-10 Standard Pain Scale 3 2 *PROMIS-10 scoring scale: mean = 50, over 50 is above average, under 50 is below average ALLERGIES Allergen Reactions Bee Sting Rash Penicillins Hives Seasonal Allergies Unknown Current Outpatient Medications Medication Sig qtoswmd-tlgwaszcz-gmjibyk D3 500 mg-5 mcg (200 unit) per tablet Take 1 tablet by mouth. [id number]-ltxlemxklz (NEURIVA PLUS BRAIN PERFORMANCE) 1.7 mg-400 mcg- 2.4 mcg cap Take 1 capsule by mouth once daily. busPIRone (BUSPAR) 10 mg tablet Take 2 tablets by mouth two times a day. Cholecalciferol, Vitamin D3, 125 mcg (5,000 unit) cap Take 1 capsule by mouth every morning. omeprazole (PRILOSEC) 20 mg capsule Take 20 mg by mouth once daily. aspirin, enteric coated (ASPIRIN, ENTERIC COATED) 81 mg EC tablet Take 81 mg by mouth once daily. fluticasone (FLONASE) 50 mcg/actuation nasal spray Use 1 [place] in each nostril once daily. docusate sodium (COLACE) 100 mg capsule Take 1 capsule by mouth twice daily as needed for Constipation. No current facility-administered medications for this visit. Objective Vital Signs: BP 116/57 (BP Site: Right Arm, BP Position: Sitting, BP Cuff Size: Regular Adult) Pulse 60 Ht 188 cm (6' 2 ) Wt 97.5 kg (214 lb 15.2 oz) SpO2 97% BMI 27.60 kg/m? Orthostatic Vitals: None for this encounter Weight: 97.5 kg (214 lb 15.2 oz) Height: 188 cm (6' 2 ) No LMP for male patient. Body mass index is 27.6 kg/m?. Movement Disorders Scales Performed: Gmjs-Tqwgii-Wnxez Tremor Scale Face Tremor At Rest: 0 - None. Tongue Tremor At Rest: Posture Holdin (more content not included)... [facility] 04-22-2024 History of Presen t illness Narrative [facility] - FOLLOW UP EVALUATION Ny Hoyos DO [address] [place] [address] Dear Ny Hoyos DO: I had the pleasure of seeing Mr. Marroquin for follow-up today. As you know he is a 78 year old left-handed male with a history of essential tremor since 2008. He had Right VIM DBS implanted in 2013. His battery was last replaced in January 2022 with an RC. He is seen alone. Subjective 03/04/2024 Visit: Essential tremor/DBS: Continue on current settings and I will bring you in again soon for a longer appointment Anxiety: Continue Buspar one tablet two times daily Imbalance: I have ordered physical therapy. Please let me know once you have the appointment scheduled and where and who it is with, as I would like to call them and discuss. I then may possibly order some tests. Cognition: I have ordered labs looking for contributing causes and will order an MRI as well Interval History: He said his hand tremor is pretty good and the problems he has is more related to the head tremor such as when he is eating. His head moves so much that it is hard to get the food to his mouth because it is a moving target. Anxiety has been much better. Balance is still a problem but he has not had falls. He said his memory is a little better. He is taking Neuriva. Two was too much, but taking one seems to help. Movement Disorders Medications Schedule - as of the start of the visit: Medications 6am 6pm Buspar 10mg 1 1 Questionnaires: In addition, the following activities of daily living that may be affected by tremors were evaluated: Speaking: Swallowing is ok Feeding: Not affected Bringing Liquids to Mouth: Hygiene: Not affected Dressing: Not affected Writing: Affected (severe) Working: Affected (moderate) Number of falls in the Last Month: 0 In addition, the following areas that may be affected by abnormal involuntary movements were evaluated: Daily activities Difficulties with eating: Difficulties in dressing: Difficulties with hygiene activities: Difficulties with handwriting: Difficulties with doing hobbies and other activities: Difficulties turning in bed: Difficulties getting out of bed, car or chair: Tremors/Gait/Balance Shaking or tremors: Walking and balance problems: Number of falls in the Last Month: 0 Gait freezing: Autonomic/Pain Lightheadeness on standing: Urinary problems: Constipation problems: Pain and other sensations: Speech/Swallowing Speech problems: Drooling: Chewing and swallowing problems: Sleep/Fatigue Sleep problems: Daytime sleepiness: Fatigue: Mood/Behavior Depression: PHQ-9 Score: 2 usually representing no significant (0-4) depression. Anxiety: JOEY-7 Total Score: 2 usually representing no significant (0-4) anxiety. Buspar is really helping. Finally, the following table shows the patient's overall global physical and mental health using the PROMIS scale: PROMIS-10 Flowsheet Row Office Visit from 03/04/2024 in Neurology Office Visit from 02/08/2023 in Neurology Global Physical Health T Score 50.8 42.3 Global Mental Health T Score 43.5 45.8 0-10 Standard Pain Scale 3 2 *PROMIS-10 scoring scale: mean = 50, over 50 is above average, under 50 is below average ALLERGIES Allergen Reactions Bee Sting Rash Penicillins Hives Seasonal Allergies Unknown Current Outpatient Medications Medication Sig xlvtzqg-yssrklyng-vielhub D3 500 mg-5 mcg (200 unit) per tablet Take 1 tablet by mouth. [id number]-ypzrts-tihkwapmqe (NEURIVA PLUS BRAIN PERFORMANCE) 1.7 mg-400 mcg- 2.4 mcg cap Take 1 capsule by mouth once daily. busPIRone (BUSPAR) 10 mg tablet Take 2 tablets by mouth two times a day. Cholecalciferol, Vitamin D3, 125 mcg (5,000 unit) cap Take 1 capsule by mouth every morning. omeprazole (PRILOSEC) 20 mg capsule Take 20 mg by mouth once daily. aspirin, enteric coated (ASPIRIN, ENTERIC COATED) 81 mg EC tablet Take 81 mg by mouth once daily. fluticasone (FLONASE) 50 mcg/actuation nasal spray Use 1 [place] in each nostril once daily. docusate sodium (COLACE) 100 mg capsule Take 1 capsule by mouth twice daily as needed for Constipation. No current facility-administered medications for this visit. Objective Vital Signs: BP 116/57 (BP Site: Right Arm, BP Position: Sitting, BP Cuff Size: Regular Adult) Pulse 60 Ht 188 cm (6' 2 ) Wt 97.5 kg (214 lb 15.2 oz) SpO2 97% BMI 27.60 kg/m Orthostatic Vitals: None for this encounter Weight: 97.5 kg (214 lb 15.2 oz) Height: 188 cm (6' 2 ) No LMP for male patient. Body mass index is 27.6 kg/m . Movement Disorders Scales Performed: Cvpl-Fuwmzc-Mazhi Tremor Scale Face Tremor At Rest: 0 - None. Tongue Tremor At Rest: Posture Holding: Voice Tremor Action and Intention: 0 - None. Head Tremor At Rest: 4 - Severe amplitude. Posture Holding: Action and Intention: RUE Tremor At Rest: 0 - None. Posture Holdin - None. Action and Intention: 2 - Moderate amplitude. May be intermittent. LUE Tremor At Rest: 0 - None. Posture Holdin - None. Action and Intention: 1 - Slight. May be intermittent. Trunk Tremor At Rest: 0 - None. Posture Holdin - None. RLE Tremor At Rest: 0 - None. Posture Holding: Action and Intention: LLE Tremor At Rest: 0 - None. Procedure: DBS was interrogated and analyzed. Details are included in the procedure note. Pertinent Studies 04/19/21 [id number] 06/09/[address] Impression: Right DBS placement with resolution of pneumocephalus. No acute intracranial process. Assessment and Plan: Assessment Mr. Marroquin is a left-handed 78 year old year old male with essential tremor since 2008. He had Right VIM DBS implanted in 2013. His battery was last replaced in January 2022 with an RC. He also has anxiety. He currently feels his hand tremor is well controlled and only his head is the issue. The Botulinum toxin injections did not help the tremor though his pain continues to be better even though he has not had the injections in quite some time. I do worry about his head tremor and the effect on his cervical spine especially since he has developed significant balance problems. We had discussed both an MRI of the cervical spine and the brain (for this and the cognitive changes he experiences) at his last visit but he wanted to wait until after his vacation. Today he told me he would just prefer not to get these done. The following are the current problems noted and addressed during this visit: Essential tremor (primary encounter diagnosis) S/p deep brain stimulator placement Plan 04/22/2024 Visit: Essential tremor: Continue current DBS settings Walking and balance: I have ordered physical therapy for you Cognition: We will continue to monitor Anxiety: Continue Buspar 10mg two times daily Updated Movement Disorders Medication Schedule: Medications 6am 4pm Buspar 10mg 1 1 Return at or around: 02/03/25 Level of service : 59733 (20-29 min). Time spent 20 min on the day of service, which included preparing to see the patient, hzjh-oi-cwap patient care, completing clinical documentation, obtaining and/or reviewing separately obtained history, performing a medically appropriate examination, and counseling and educating the patient/family/caregiver. This does not include DBS analysis and/or programming time. Mila Andino APRN.[employer] documented in this encounter [facility] 04-09-2024 Telephone encounter Note At appointment time, 3p, pt was not checked in. Went to lobby/waiting room and hallway to call for pt. Pt was not in either location. [facility] 04-09-2024 Miscellaneous Notes At appointment time, 3p, pt was not checked in. Went to lobby/waiting room and hallway to call for pt. Pt was not in either location. documented in this encounter [facility] 03-05-2024 Telephone encounter Note I reviewed the labs and these are wnl except his Vit D level is still low. I will have him contacted to follow up with his primary care provider about this and then the labs will be faxed to the primary care provider as well. PHILIP Rouse [facility] 03-05-2024 Miscellaneous Notes I reviewed the labs and these are wnl except his Vit D level is still low. I will have him contacted to follow up with his primary care provider about this and then the labs will be faxed to the primary care provider as well. PHILIP Rouse Pt's called to report that he had labs done yesterday at outside facility. Looks like they are available in [facility]. documented in this encounter [facility] 03-05-2024 Telephone encounter Note Pt's called to report that he had labs done yesterday at outside facility. Looks like they are available in [facility]. [facility] 03-04-2024 Instructions Mila Andino APRN.CNP - 03/04/2024 2:17 PM EDT It was a pleasure to see you today. We addressed the following diagnoses: Essential tremor (primary encounter diagnosis) S/p deep brain stimulator placement Anxiety Abnormality of gait Cognitive impairment Vitamin d deficiency My recommendations are as follows: 03/04/2024 Visit: Essential tremor/DBS: Continue on current settings and I will bring you in again soon for a longer appointment Anxiety: Continue Buspar one tablet two times daily Imbalance: I have ordered physical therapy. Please let me know once you have the appointment scheduled and where and who it is with, as I would like to call them and discuss. I then may possibly order some tests. Cognition: I have ordered labs looking for contributing causes and will order an MRI as well Movement Disorders Medication Schedule: Medications 6am 4pm Buspar 10mg 1 1 If there are any concerns before your next visit, please call or you can send a message through [facility] [employer]. You can also now schedule and select appointments through [facility]. Mila Andino APRN.[employer] documented in this encounter [facility] 03-04-2024 History of Presen t illness Narrative [facility] - FOLLOW UP EVALUATION Ny Hoyos DO [address] [facility] [place] [address] Dear Ny Hoyos DO: I had the pleasure of seeing Mr. Marroquin for follow-up today. As you know he is a 78 year old left-handed male with a history of essential tremor since 2008. He had Right VIM DBS implanted in 2013. His battery was last replaced in January 2022 with an RC. He is seen with his . Subjective Previous Plan-09/04/2023 Visit: Essential tremor/DBS: Continue current settings (the ones from last visit that you asked to be placed back on), but if you feel you need programming, please let me know. Anxiety: Continue Buspar 10mg two tablets two times daily at the times below Updated Movement Disorders Medication Schedule: Medications 6am 4pm Buspar 10mg 2 2 Interval History: His balance has been worse and he had a fall. He last had physical therapy a few years ago. He and his feel his cognition is worse. Taking two Buspar two times daily made him spacey so he is now taking it one tablet two times daily and feels it is fairly well controlling the anxiety. Movement Disorders Medications Schedule - as of the start of the visit: Medications 6am 4pm Buspar 10mg 2 2 Questionnaires: In addition, the following activities of daily living that may be affected by tremors were evaluated: Speaking: Not affected Feeding: Affected (moderate) Bringing Liquids to Mouth: Affected (marked) Hygiene: Not affected Dressing: Not affected Writing: Affected (mild) Working: Affected (mild) Number of falls in the Last Month: 01 Mood/Behavior Depression: PHQ-9 Score: 1 usually representing no significant (0-4) depression. Anxiety: JOEY-7 Total Score: 7 usually representing mild (5-9) anxiety. Finally, the following table shows the patient's overall global physical and mental health using the PROMIS scale: PROMIS-10 Flowsheet Row Office Visit from 03/04/2024 in Neurology Office Visit from 02/08/2023 in Neurology Global Physical Health T Score 50.8 42.3 Global Mental Health T Score 43.5 45.8 0-10 Standard Pain Scale 3 2 *PROMIS-10 scoring scale: mean = 50, over 50 is above average, under 50 is below average ALLERGIES Allergen Reactions Bee Sting Rash Penicillins Hives Seasonal Allergies Unknown Current Outpatient Medications Medication Sig busPIRone (BUSPAR) 10 mg tablet Take 2 tablets by mouth two times a day. Cholecalciferol, Vitamin D3, 125 mcg (5,000 unit) cap Take 1 capsule by mouth every morning. omeprazole (PRILOSEC) 20 mg capsule Take 20 mg by mouth once daily. celecoxib (CELEBREX) 200 mg capsule Take 200 mg by mouth once daily. aspirin, enteric coated (ASPIRIN, ENTERIC COATED) 81 mg EC tablet Take 81 mg by mouth once daily. fluticasone (FLONASE) 50 mcg/actuation nasal spray Use 1 [place] in each nostril once daily. docusate sodium (COLACE) 100 mg capsule Take 1 capsule by mouth twice daily as needed for Constipation. [id number] (NEURIVA PLUS BRAIN PERFORMANCE) 1.7 mg-400 mcg- 2.4 mcg cap Take 1 capsule by mouth once daily. No current facility-administered medications for this visit. Objective Vital Signs: BP 113/65 (BP Site: Right Arm, BP Position: Sitting, BP Cuff Size: Regular Adult) Pulse 62 Ht 188 cm (6' 2 ) Wt 98.3 kg (216 lb 11.4 oz) SpO2 97% BMI 27.82 kg/m Orthostatic Vitals: None for this encounter No LMP for male patient. Body mass index is 27.82 kg/m . Movement Disorders Scales Performed: Donovan Cognitive Assessment (MoCA) Visuospatial/Executive 2 Naming 3 Attention 6 Language 0 Abstraction 1 Delayed Memory 2 Orientation 6 Education < or equal to 12 years (1 is true, 0 is false) 1 MoCA Total Score 21 Gcdo-Liwowp-Ruvdn Tremor Scale Voice Tremor Action and Intention: 0 - None. Head Tremor At Rest: 4 - Severe amplitude. Posture Holding: Action and Intention: RUE Tremor At Rest: 0 - None. Posture Holdin - None. Action and Intention: 1 - Slight. May be intermittent. LUE Tremor At Rest: 0 - None. Posture Holdin - None. Action and Intention: 1 - Slight. May be intermittent. Trunk Tremor At Rest: 0 - None. Posture Holding: RLE Tremor At Rest: 0 - None. Posture Holding: Action and Intention: LLE Tremor At Rest: 0 - None. Upper extremity strength is 5/5. Negative Peter's. Pertinent Studies 04/19/21 B12 [id number] 06/09/[address] Impression: Right DBS placement with resolution of pneumocephalus. No acute intracranial process. Assessment and Plan: Assessment Mr. Marroquin is a left-handed 78 year old year old male with essential tremor since 2008. He had Right VIM DBS implanted in 2013. His battery was last replaced in January 2022 with an RC. He also has anxiety. He came in today for programming as his tremor has been worse. However, he also mentioned an increase in problems with cognition and balance including a fall. He scored a 21/30 on the MoCA. I have ordered some labs and will order a brain MRI as well. In the time that we had for programming, improvement was not found in his tremor so he will remain on the current settings and I will bring him back for follow-up programming when he returns from vacation. The following are the current problems noted and addressed during this visit: Essential tremor (primary encounter diagnosis) S/p deep brain stimulator placement Anxiety Abnormality of gait Cognitive impairment Vitamin d deficiency Plan 03/04/2024 Visit: Essential tremor/DBS: Continue on current settings and I will bring you in again soon for a longer appointment Anxiety: Continue Buspar one tablet two times daily Imbalance: I have ordered physical therapy. Please let me know once you have the appointment scheduled and where and who it is with, as I would like to call them and discuss. I then may possibly order some tests. Cognition: I have ordered labs looking for contributing causes and will order an MRI as well Updated Movement Disorders Medication Schedule: Medications 6am 4pm Buspar 10mg 1 1 Total time spent complex programming deep brain stimulators: 17 (2:03pm-2:20pm) minutes. Multiple symptoms and potential side effects were monitored such as a reduction of symptoms as well as side effects including but not limited to paresthesias, tonic contractions, lightheadedness, speech changes and gait changes. Mila Andino APRN.LAURIE documented in this encounter [facility] 03-04-2024 Note HNO ID: [id number] Author: MILA ANDINO APRN.LAURIE Service: ? Author Type: Nurse Practitioner Type: Procedures Filed: 03/05/2024 12:54 Note Text: DBS programming: Right chest RC-placed in January 2022 Battery: 100% with excellent coupl-LELE 01/03/36 System impedances were checked and are within normal ranges. INITIAL AND FINAL SETTINGS: ACTIVE GROUP A BASELINE SETTINGS Right VIM DBS 3 - 2+ 5.0 V (3.0-5.0) 100 uS 185 Hz INACTIVE GROUP B 2-3+ 3.8 (2.0-4.4) V 60uS 130Hz Today's Programming 03/04/24 2:03pm-2:20 Right VIM DBS 3 - 2+ 5.0 V 100 uS 185 Hz ++CONTACT CHANGE++ 2-3-1+ 1.5 V 60uS 185Hz 2-3-1+ 2.0V 60uS 185Hz slightly better 2-3-1+ 2.5 V 60uS 185Hz strong numbness in his leg and fingers that took a few minutes to go away 2-3-1+ 2.8 V 60uS 185Hz numbness returned Can explore more but ran out of time Programming 09/04/23 Analysis done. I switched back to Group A and it was strong so I backed down and slowly went back up and this was tolerated better. Programming 02/08/23 Right VIM DBS 3 - 2+ 5.0 V 100 uS 185 Hz BASELINE SETTINGS ++CONTACT CHANGE++ 2-3+ 3.5 V 60uS 130Hz no tremor with rest, ftn, or postural and spiral looks good. Name looks better as well. 2-3+ 3.8 V 60uS 130HZ Can also drink from a cup without hand tremor or spilling (when at mouth, slightly more difficult due to head tremor but still can do it without spilling-head is better too but not sure if he is more relaxed or actually related 2-3+ 4.2V-4.5V 60uS 130Hz transient tingling 2-3+ 4.6V 60uS 130Hz full body numbness that is uncomfortable and repeatable-THRESHOLD REACHED We discussed trying for other settings that work also, but he declined further programming. Programming 02/17/21: I turned it off initially to see if gait improved with it off and his gait is unchanged with DBS off. 3 - 2+ 4.5 V 90 uS 185 Hz BASELINE SETTINGS 1-2-3+ 1.5V 60uS 185Hz Tingling in his fingers, transient 1-2-3+ 1.6-3.5V 60uS 185Hz No change in head tremor and developed non-transient parasthesias Right VIM DBS Programming: -I put him back on GROUP A (previous settings) at his request. He was fine at first, but after approximately 5-10 seconds, his left eye closed and his left lip pulled up and he could not speak. I immediately took it down to 1.8V and after a few seconds it went away. I then slowly increased it back up over time. When I got to 2.6V, he started to feel the left eye started to close and it did not go away. I tried this a few times going slower each time, but I could never get past 2.7V before he started noticing changes. Immediately upon changing to Group B he said he felt better. Returned to baseline: 3 - 2+ 4.5 V 90 uS 185 Hz BASELINE 3 - 2+ 4.6 V 90 uS 185 Hz Handwriting improved but requires more concentration, no side effects 3 - 2+ 4.7 V 90 uS 185 Hz Further improvement noted without s/e 3 - 2+ 4.8 V 90 uS 185 Hz Further improvement noted without s/e 3 - 2+ 4.9 V 90 uS 185 Hz No change 3 - 2+ 5.0 V 90 uS 185 Hz No change 3 - 2+ 4.5 V 100 uS 185 Hz Head tremor may be worse but action and postural tremor are controlled 3 - 2+ 4.6 V-4.8V 100 uS 185 Hz Head improved and the writing improved the most at 4.7-4.8, no side effects 3 - 2+ 4.8 V 90 uS 185 Hz These are the settings he felt best on before, but this time while still good, he did have a little more difficulty and his writing was slightly more shaky 3 - 2+ 4.9 V 100 uS 185 Hz Further improvement noted without s/e 3 - 2+ 5.0 V 100uS 185 Hz Other than slight tremor getting started with the spiral, there was not any tremor with the spiral otherwise or with writing and he said this feels the best it has all day. He also did not have any left hand tremor at rest, with action or with posture. Previous Right VIM programmin - C+ 3.0 V 90 uS 185 Hz Baseline settings 3 - C+ 3.2 V 90 uS 185 Hz Strong paraesthesias and starting to feel like his eye is closing (previously seen by KW as well) THRESHOLD REACHED CONTACT CHANGE 3 - 2+ 2.0 V 90 uS 185 Hz Difficult to write 3 - 2+ 2.5 V 90 uS 185 Hz better writing 3 - 2+ 3.0 V 90 uS 185 Hz Writing continues to improve but still not as good as baseline 3 - 2+ 3.5 V 90 uS 185 Hz No change 3 - 2+ 4.0 V 90 uS 185 Hz Writing may be better than baseline-no action or postural tremor 3 - 2+ 4.3 V 90 uS 185 Hz Even better, with the exception of a few letters in the middle of his last name, it is more legible than baseline 3 - 2+ 4.5 V 90 uS 185 Hz Writing even more improved and he said it is the be (more content not included)... [facility] 03-04-2024 Note HNO ID: [id number] Author: MILA ANDINO APRN.[employer]ER [employer] Service: ? Author Type: Nurse Practitioner Type: Progress Notes Filed: 03/05/2024 12:54 Note Text: [facility] - FOLLOW UP EVALUATION Ny Hoyos DO [address] [place] [address] Dear Ny Hoyos DO: I had the pleasure of seeing Mr. Marroquin for follow-up today. As you know he is a 78 year old left-handed male with a history of essential tremor since 2008. He had Right VIM DBS implanted in 2013. His battery was last replaced in January 2022 with an RC. He is seen with his . Subjective Previous Plan-09/04/2023 Visit: Essential tremor/DBS: Continue current settings (the ones from last visit that you asked to be placed back on), but if you feel you need programming, please let me know. Anxiety: Continue Buspar 10mg two tablets two times daily at the times below Updated Movement Disorders Medication Schedule: Medications 6am 4pm Buspar 10mg 2 2 Interval History: His balance has been worse and he had a fall. He last had physical therapy a few years ago. He and his feel his cognition is worse. Taking two Buspar two times daily made him spacey so he is now taking it one tablet two times daily and feels it is fairly well controlling the anxiety. Movement Disorders Medications Schedule - as of the start of the visit: Medications 6am 4pm Buspar 10mg 2 2 Questionnaires: In addition, the following activities of daily living that may be affected by tremors were evaluated: Speaking: Not affected Feeding: Affected (moderate) Bringing Liquids to Mouth: Affected (marked) Hygiene: Not affected Dressing: Not affected Writing: Affected (mild) Working: Affected (mild) Number of falls in the Last Month: 01 Mood/Behavior Depression: PHQ-9 Score: 1 usually representing no significant (0-4) depression. Anxiety: JOEY-7 Total Score: 7 usually representing mild (5-9) anxiety. Finally, the following table shows the patient's overall global physical and mental health using the PROMIS scale: PROMIS-10 Flowsheet Row Office Visit from 03/04/2024 in Neurology Office Visit from 02/08/2023 in Neurology Global Physical Health T Score 50.8 42.3 Global Mental Health T Score 43.5 45.8 0-10 Standard Pain Scale 3 2 *PROMIS-10 scoring scale: mean = 50, over 50 is above average, under 50 is below average ALLERGIES Allergen Reactions Bee Sting Rash Penicillins Hives Seasonal Allergies Unknown Current Outpatient Medications Medication Sig busPIRone (BUSPAR) 10 mg tablet Take 2 tablets by mouth two times a day. Cholecalciferol, Vitamin D3, 125 mcg (5,000 unit) cap Take 1 capsule by mouth every morning. omeprazole (PRILOSEC) 20 mg capsule Take 20 mg by mouth once daily. celecoxib (CELEBREX) 200 mg capsule Take 200 mg by mouth once daily. aspirin, enteric coated (ASPIRIN, ENTERIC COATED) 81 mg EC tablet Take 81 mg by mouth once daily. fluticasone (FLONASE) 50 mcg/actuation nasal spray Use 1 [place] in each nostril once daily. docusate sodium (COLACE) 100 mg capsule Take 1 capsule by mouth twice daily as needed for Constipation. [id number] (NEURIVA PLUS BRAIN PERFORMANCE) 1.7 mg-400 mcg- 2.4 mcg cap Take 1 capsule by mouth once daily. No current facility-administered medications for this visit. Objective Vital Signs: BP 113/65 (BP Site: Right Arm, BP Position: Sitting, BP Cuff Size: Regular Adult) Pulse 62 Ht 188 cm (6' 2 ) Wt 98.3 kg (216 lb 11.4 oz) SpO2 97% BMI 27.82 kg/m? Orthostatic Vitals: None for this encounter No LMP for male patient. Body mass index is 27.82 kg/m?. Movement Disorders Scales Performed: [place] Cognitive Assessment (MoCA) Visuospatial/Executive 2 Naming 3 Attention 6 Language 0 Abstraction 1 Delayed Memory 2 Orientation 6 Education < or equal to 12 years (1 is true, 0 is false) 1 MoCA Total Score 21 Pswu-Jclaog-Ljfap Tremor Scale Voice Tremor Action and Intention: 0 - None. Head Tremor At Rest: 4 - Severe amplitude. Posture Holding: Action and Intention: RUE Tremor At Rest: 0 - None. Posture Holdin - None. Action and Intention: 1 - Slight. May be intermittent. LUE Tremor At Rest: 0 - None. Posture Holdin - None. Action and Intention: 1 - Slight. May be intermittent. Trunk Tremor At Rest: 0 - None. Posture Holding: RLE Tremor At Rest: 0 - None. Posture Holding: Action and Intention: LLE Tremor At Rest: 0 - None. Upper extremity strength is 5/5. Negative Peter's. Pertinent Studies 04/19/21 B12 [id number] 06/09/[address] Impression: Right DBS placement with resolution of pneumocephalus. No acute intracranial process. Assessment and Plan: Assessment Mr. Marroquin is a left-handed 78 year old year old male with essential tremor since 2008. He had Right VIM DBS implanted in 2013. His battery was last replaced in January 2022 with an RC. He als (more content not included)... [facility] 03-04-2024 Procedure note DBS programming: Right chest RC-placed in January 2022 Battery: 100% with excellent coupl-LELE 01/03/36 System impedances were checked and are within normal ranges. INITIAL AND FINAL SETTINGS: ACTIVE GROUP A BASELINE SETTINGS Right VIM DBS 3 - 2+ 5.0 V (3.0-5.0) 100 uS 185 Hz INACTIVE GROUP B 2-3+ 3.8 (2.0-4.4) V 60uS 130Hz Today's Programming 03/04/24 2:03pm-2:20 Right VIM DBS 3 - 2+ 5.0 V 100 uS 185 Hz ++CONTACT CHANGE++ 2-3-1+ 1.5 V 60uS 185Hz 2-3-1+ 2.0V 60uS 185Hz slightly better 2-3-1+ 2.5 V 60uS 185Hz strong numbness in his leg and fingers that took a few minutes to go away 2-3-1+ 2.8 V 60uS 185Hz numbness returned Can explore more but ran out of time Programming 09/04/23 Analysis done. I switched back to Group A and it was strong so I backed down and slowly went back up and this was tolerated better. Programming 02/08/23 Right VIM DBS 3 - 2+ 5.0 V 100 uS 185 Hz BASELINE SETTINGS ++CONTACT CHANGE++ 2-3+ 3.5 V 60uS 130Hz no tremor with rest, ftn, or postural and spiral looks good. Name looks better as well. 2-3+ 3.8 V 60uS 130HZ Can also drink from a cup without hand tremor or spilling (when at mouth, slightly more difficult due to head tremor but still can do it without spilling-head is better too but not sure if he is more relaxed or actually related 2-3+ 4.2V-4.5V 60uS 130Hz transient tingling 2-3+ 4.6V 60uS 130Hz full body numbness that is uncomfortable and repeatable-THRESHOLD REACHED We discussed trying for other settings that work also, but he declined further programming. Programming 02/17/21: I turned it off initially to see if gait improved with it off and his gait is unchanged with DBS off. 3 - 2+ 4.5 V 90 uS 185 Hz BASELINE SETTINGS 1-2-3+ 1.5V 60uS 185Hz Tingling in his fingers, transient 1-2-3+ 1.6-3.5V 60uS 185Hz No change in head tremor and developed non-transient parasthesias Right VIM DBS Programming: -I put him back on GROUP A (previous settings) at his request. He was fine at first, but after approximately 5-10 seconds, his left eye closed and his left lip pulled up and he could not speak. I immediately took it down to 1.8V and after a few seconds it went away. I then slowly increased it back up over time. When I got to 2.6V, he started to feel the left eye started to close and it did not go away. I tried this a few times going slower each time, but I could never get past 2.7V before he started noticing changes. Immediately upon changing to Group B he said he felt better. Returned to baseline: 3 - 2+ 4.5 V 90 uS 185 Hz BASELINE 3 - 2+ 4.6 V 90 uS 185 Hz Handwriting improved but requires more concentration, no side effects 3 - 2+ 4.7 V 90 uS 185 Hz Further improvement noted without s/e 3 - 2+ 4.8 V 90 uS 185 Hz Further improvement noted without s/e 3 - 2+ 4.9 V 90 uS 185 Hz No change 3 - 2+ 5.0 V 90 uS 185 Hz No change 3 - 2+ 4.5 V 100 uS 185 Hz Head tremor may be worse but action and postural tremor are controlled 3 - 2+ 4.6 V-4.8V 100 uS 185 Hz Head improved and the writing improved the most at 4.7-4.8, no side effects 3 - 2+ 4.8 V 90 uS 185 Hz These are the settings he felt best on before, but this time while still good, he did have a little more difficulty and his writing was slightly more shaky 3 - 2+ 4.9 V 100 uS 185 Hz Further improvement noted without s/e 3 - 2+ 5.0 V 100uS 185 Hz Other than slight tremor getting started with the spiral, there was not any tremor with the spiral otherwise or with writing and he said this feels the best it has all day. He also did not have any left hand tremor at rest, with action or with posture. Previous Right VIM programmin - C+ 3.0 V 90 uS 185 Hz Baseline settings 3 - C+ 3.2 V 90 uS 185 Hz Strong paraesthesias and starting to feel like his eye is closing (previously seen by KW as well) THRESHOLD REACHED CONTACT CHANGE 3 - 2+ 2.0 V 90 uS 185 Hz Difficult to write 3 - 2+ 2.5 V 90 uS 185 Hz better writing 3 - 2+ 3.0 V 90 uS 185 Hz Writing continues to improve but still not as good as baseline 3 - 2+ 3.5 V 90 uS 185 Hz No change 3 - 2+ 4.0 V 90 uS 185 Hz Writing may be better than baseline-no action or postural tremor 3 - 2+ 4.3 V 90 uS 185 Hz Even better, with the exception of a few letters in the middle of his last name, it is more legible than baseline 3 - 2+ 4.5 V 90 uS 185 Hz Writing even more improved and he said it is the best it has been in a while I had planned on looking for side effect threshold to look for and program a range even though the plan was to keep it on these settings, however, he was feeling so good so he did not want to do that. Of note, when I programmed his old settings back into Group A, as it neared and was at the settings, he felt less relaxed and his eye started closing but then relaxed. [facility] 03-04-2024 Procedure note DBS programming: Right chest RC-placed in January 2022 Battery: 100% with excellent coupl-LELE 01/03/36 System impedances were checked and are within normal ranges. INITIAL AND FINAL SETTINGS: ACTIVE GROUP A BASELINE SETTINGS Right VIM DBS 3 - 2+ 5.0 V (3.0-5.0) 100 uS 185 Hz INACTIVE GROUP B 2-3+ 3.8 (2.0-4.4) V 60uS 130Hz Today's Programming 03/04/24 2:03pm-2:20 Right VIM DBS 3 - 2+ 5.0 V 100 uS 185 Hz ++CONTACT CHANGE++ 2-3-1+ 1.5 V 60uS 185Hz 2-3-1+ 2.0V 60uS 185Hz slightly better 2-3-1+ 2.5 V 60uS 185Hz strong numbness in his leg and fingers that took a few minutes to go away 2-3-1+ 2.8 V 60uS 185Hz numbness returned Can explore more but ran out of time Programming 09/04/23 Analysis done. I switched back to Group A and it was strong so I backed down and slowly went back up and this was tolerated better. Programming 02/08/23 Right VIM DBS 3 - 2+ 5.0 V 100 uS 185 Hz BASELINE SETTINGS ++CONTACT CHANGE++ 2-3+ 3.5 V 60uS 130Hz no tremor with rest, ftn, or postural and spiral looks good. Name looks better as well. 2-3+ 3.8 V 60uS 130HZ Can also drink from a cup without hand tremor or spilling (when at mouth, slightly more difficult due to head tremor but still can do it without spilling-head is better too but not sure if he is more relaxed or actually related 2-3+ 4.2V-4.5V 60uS 130Hz transient tingling 2-3+ 4.6V 60uS 130Hz full body numbness that is uncomfortable and repeatable-THRESHOLD REACHED We discussed trying for other settings that work also, but he declined further programming. Programming 02/17/21: I turned it off initially to see if gait improved with it off and his gait is unchanged with DBS off. 3 - 2+ 4.5 V 90 uS 185 Hz BASELINE SETTINGS 1-2-3+ 1.5V 60uS 185Hz Tingling in his fingers, transient 1-2-3+ 1.6-3.5V 60uS 185Hz No change in head tremor and developed non-transient parasthesias Right VIM DBS Programming: -I put him back on GROUP A (previous settings) at his request. He was fine at first, but after approximately 5-10 seconds, his left eye closed and his left lip pulled up and he could not speak. I immediately took it down to 1.8V and after a few seconds it went away. I then slowly increased it back up over time. When I got to 2.6V, he started to feel the left eye started to close and it did not go away. I tried this a few times going slower each time, but I could never get past 2.7V before he started noticing changes. Immediately upon changing to Group B he said he felt better. Returned to baseline: 3 - 2+ 4.5 V 90 uS 185 Hz BASELINE 3 - 2+ 4.6 V 90 uS 185 Hz Handwriting improved but requires more concentration, no side effects 3 - 2+ 4.7 V 90 uS 185 Hz Further improvement noted without s/e 3 - 2+ 4.8 V 90 uS 185 Hz Further improvement noted without s/e 3 - 2+ 4.9 V 90 uS 185 Hz No change 3 - 2+ 5.0 V 90 uS 185 Hz No change 3 - 2+ 4.5 V 100 uS 185 Hz Head tremor may be worse but action and postural tremor are controlled 3 - 2+ 4.6 V-4.8V 100 uS 185 Hz Head improved and the writing improved the most at 4.7-4.8, no side effects 3 - 2+ 4.8 V 90 uS 185 Hz These are the settings he felt best on before, but this time while still good, he did have a little more difficulty and his writing was slightly more shaky 3 - 2+ 4.9 V 100 uS 185 Hz Further improvement noted without s/e 3 - 2+ 5.0 V 100uS 185 Hz Other than slight tremor getting started with the spiral, there was not any tremor with the spiral otherwise or with writing and he said this feels the best it has all day. He also did not have any left hand tremor at rest, with action or with posture. Previous Right VIM programmin - C+ 3.0 V 90 uS 185 Hz Baseline settings 3 - C+ 3.2 V 90 uS 185 Hz Strong paraesthesias and starting to feel like his eye is closing (previously seen by ROMAN as well) THRESHOLD REACHED CONTACT CHANGE 3 - 2+ 2.0 V 90 uS 185 Hz Difficult to write 3 - 2+ 2.5 V 90 uS 185 Hz better writing 3 - 2+ 3.0 V 90 uS 185 Hz Writing continues to improve but still not as good as baseline 3 - 2+ 3.5 V 90 uS 185 Hz No change 3 - 2+ 4.0 V 90 uS 185 Hz Writing may be better than baseline-no action or postural tremor 3 - 2+ 4.3 V 90 uS 185 Hz Even better, with the exception of a few letters in the middle of his last name, it is more legible than baseline 3 - 2+ 4.5 V 90 uS 185 Hz Writing even more improved and he said it is the best it has been in a while I had planned on looking for side effect threshold to look for and program a range even though the plan was to keep it on these settings, however, he was feeling so good so he did not want to do that. Of note, when I programmed his old settings back into Group A, as it neared and was at the settings, he felt less relaxed and his eye started closing but then relaxed. documented in this encounter [facility] 09-04-2023 Instructions Mila Andino APRN.CNP - 09/04/2023 10:54 AM EDT It was a pleasure to see you today. We addressed the following diagnoses: Essential tremor (primary encounter diagnosis) Anxiety S/p deep brain stimulator placement My recommendations are as follows: 09/04/2023 Visit: Essential tremor/DBS: Continue current settings (the ones from last visit that you asked to be placed back on), but if you feel you need programming, please let me know. Anxiety: Continue Buspar 10mg two tablets two times daily at the times below Movement Disorders Medication Schedule: Medications 6am 4pm Buspar 10mg 2 2 Return in about 6 months (around 03/04/2024). If there are any concerns before your next visit, please call or you can send a message through [facility]. You can also now schedule and select appointments through [facility]. Mila Andino APRN.[employer] documented in this encounter [facility] 09-04-2023 Note HNO ID: [id number] Author: Mila Andino APRN.LAURIE Service: ? Author Type: Nurse Practitioner Type: Procedures Filed: 09/04/2023 11:18 AM Note Text: DBS programmin:43am-10:51am Right chest RC-placed in January 2022 Battery: 100% with excellent coupl-LELE 01/03/36 System impedances were checked and are within normal ranges. INITIAL SETTINGS: ACTIVE GROUP B 2-3+ 3.8 (2.0-4.4) V 60uS 130Hz Therapeutic Impedance: 1104 ohms Current: 3.5 mA INACTIVE GROUP A Right VIM DBS 3 - 2+ 5.0 V (3.0-5.0) 100 uS 185 Hz FINAL SETTINGS: ACTIVE GROUP A BASELINE SETTINGS Right VIM DBS 3 - 2+ 5.0 V (3.0-5.0) 100 uS 185 Hz INACTIVE GROUP B 2-3+ 3.8 (2.0-4.4) V 60uS 130Hz Today's programming 09/04/23 Analysis done. I switched back to Group A and it was strong so I backed down and slowly went back up and this was tolerated better. _ Programming 02/08/23 Right VIM DBS 3 - 2+ 5.0 V 100 uS 185 Hz BASELINE SETTINGS ++CONTACT CHANGE++ 2-3+ 3.5 V 60uS 130Hz no tremor with rest, ftn, or postural and spiral looks good. Name looks better as well. 2-3+ 3.8 V 60uS 130HZ Can also drink from a cup without hand tremor or spilling (when at mouth, slightly more difficult due to head tremor but still can do it without spilling-head is better too but not sure if he is more relaxed or actually related 2-3+ 4.2V-4.5V 60uS 130Hz transient tingling 2-3+ 4.6V 60uS 130Hz full body numbness that is uncomfortable and repeatable-THRESHOLD REACHED We discussed trying for other settings that work also, but he declined further programming. __ Programming 02/17/21: I turned it off initially to see if gait improved with it off and his gait is unchanged with DBS off. 3 - 2+ 4.5 V 90 uS 185 Hz BASELINE SETTINGS 1-2-3+ 1.5V 60uS 185Hz Tingling in his fingers, transient 1-2-3+ 1.6-3.5V 60uS 185Hz No change in head tremor and developed non-transient parasthesias _ Right VIM DBS Programming: -I put him back on GROUP A (previous settings) at his request. He was fine at first, but after approximately 5-10 seconds, his left eye closed and his left lip pulled up and he could not speak. I immediately took it down to 1.8V and after a few seconds it went away. I then slowly increased it back up over time. When I got to 2.6V, he started to feel the left eye started to close and it did not go away. I tried this a few times going slower each time, but I could never get past 2.7V before he started noticing changes. Immediately upon changing to Group B he said he felt better. Returned to baseline: 3 - 2+ 4.5 V 90 uS 185 Hz BASELINE 3 - 2+ 4.6 V 90 uS 185 Hz Handwriting improved but requires more concentration, no side effects 3 - 2+ 4.7 V 90 uS 185 Hz Further improvement noted without s/e 3 - 2+ 4.8 V 90 uS 185 Hz Further improvement noted without s/e 3 - 2+ 4.9 V 90 uS 185 Hz No change 3 - 2+ 5.0 V 90 uS 185 Hz No change 3 - 2+ 4.5 V 100 uS 185 Hz Head tremor may be worse but action and postural tremor are controlled 3 - 2+ 4.6 V-4.8V 100 uS 185 Hz Head improved and the writing improved the most at 4.7-4.8, no side effects 3 - 2+ 4.8 V 90 uS 185 Hz These are the settings he felt best on before, but this time while still good, he did have a little more difficulty and his writing was slightly more shaky 3 - 2+ 4.9 V 100 uS 185 Hz Further improvement noted without s/e 3 - 2+ 5.0 V 100uS 185 Hz Other than slight tremor getting started with the spiral, there was not any tremor with the spiral otherwise or with writing and he said this feels the best it has all day. He also did not have any left hand tremor at rest, with action or with posture. Previous Right VIM programmin - C+ 3.0 V 90 uS 185 Hz Baseline settings 3 - C+ 3.2 V 90 uS 185 Hz Strong paraesthesias and starting to feel like his eye is closing (previously seen by KW as well) THRESHOLD REACHED CONTACT CHANGE 3 - 2+ 2.0 V 90 uS 185 Hz Difficult to write 3 - 2+ 2.5 V 90 uS 185 Hz better writing 3 - 2+ 3.0 V 90 uS 185 Hz Writing continues to improve but still not as good as baseline 3 - 2+ 3.5 V 90 uS 185 Hz No change 3 - 2+ 4.0 V 90 uS 185 Hz Writing may be better than baseline-no action or postural tremor 3 - 2+ 4.3 V 90 uS 185 Hz Even better, with the exception of a few letters in the middle of his last name, it is more legible than baseline 3 - 2+ 4.5 V 90 uS 185 Hz Writing even more improved and he said it is the best it has been in a while I had planned on looking for side effect threshold to look for and program a range even though the plan was to keep it on these settings, however, he was feeling so good so he did not (more content not included)... [facility] 09-04-2023 Procedure note DBS programmin:43am-10:51am Right chest RC-placed in January 2022 Battery: 100% with excellent coupl-LELE 01/03/36 System impedances were checked and are within normal ranges. INITIAL SETTINGS: ACTIVE GROUP B 2-3+ 3.8 (2.0-4.4) V 60uS 130Hz Therapeutic Impedance: 1104 ohms Current: 3.5 mA INACTIVE GROUP A Right VIM DBS 3 - 2+ 5.0 V (3.0-5.0) 100 uS 185 Hz FINAL SETTINGS: ACTIVE GROUP A BASELINE SETTINGS Right VIM DBS 3 - 2+ 5.0 V (3.0-5.0) 100 uS 185 Hz INACTIVE GROUP B 2-3+ 3.8 (2.0-4.4) V 60uS 130Hz Today's programming 09/04/23 Analysis done. I switched back to Group A and it was strong so I backed down and slowly went back up and this was tolerated better. Programming 02/08/23 Right VIM DBS 3 - 2+ 5.0 V 100 uS 185 Hz BASELINE SETTINGS ++CONTACT CHANGE++ 2-3+ 3.5 V 60uS 130Hz no tremor with rest, ftn, or postural and spiral looks good. Name looks better as well. 2-3+ 3.8 V 60uS 130HZ Can also drink from a cup without hand tremor or spilling (when at mouth, slightly more difficult due to head tremor but still can do it without spilling-head is better too but not sure if he is more relaxed or actually related 2-3+ 4.2V-4.5V 60uS 130Hz transient tingling 2-3+ 4.6V 60uS 130Hz full body numbness that is uncomfortable and repeatable-THRESHOLD REACHED We discussed trying for other settings that work also, but he declined further programming. Programming 02/17/21: I turned it off initially to see if gait improved with it off and his gait is unchanged with DBS off. 3 - 2+ 4.5 V 90 uS 185 Hz BASELINE SETTINGS 1-2-3+ 1.5V 60uS 185Hz Tingling in his fingers, transient 1-2-3+ 1.6-3.5V 60uS 185Hz No change in head tremor and developed non-transient parasthesias Right VIM DBS Programming: -I put him back on GROUP A (previous settings) at his request. He was fine at first, but after approximately 5-10 seconds, his left eye closed and his left lip pulled up and he could not speak. I immediately took it down to 1.8V and after a few seconds it went away. I then slowly increased it back up over time. When I got to 2.6V, he started to feel the left eye started to close and it did not go away. I tried this a few times going slower each time, but I could never get past 2.7V before he started noticing changes. Immediately upon changing to Group B he said he felt better. Returned to baseline: 3 - 2+ 4.5 V 90 uS 185 Hz BASELINE 3 - 2+ 4.6 V 90 uS 185 Hz Handwriting improved but requires more concentration, no side effects 3 - 2+ 4.7 V 90 uS 185 Hz Further improvement noted without s/e 3 - 2+ 4.8 V 90 uS 185 Hz Further improvement noted without s/e 3 - 2+ 4.9 V 90 uS 185 Hz No change 3 - 2+ 5.0 V 90 uS 185 Hz No change 3 - 2+ 4.5 V 100 uS 185 Hz Head tremor may be worse but action and postural tremor are controlled 3 - 2+ 4.6 V-4.8V 100 uS 185 Hz Head improved and the writing improved the most at 4.7-4.8, no side effects 3 - 2+ 4.8 V 90 uS 185 Hz These are the settings he felt best on before, but this time while still good, he did have a little more difficulty and his writing was slightly more shaky 3 - 2+ 4.9 V 100 uS 185 Hz Further improvement noted without s/e 3 - 2+ 5.0 V 100uS 185 Hz Other than slight tremor getting started with the spiral, there was not any tremor with the spiral otherwise or with writing and he said this feels the best it has all day. He also did not have any left hand tremor at rest, with action or with posture. Previous Right VIM programmin - C+ 3.0 V 90 uS 185 Hz Baseline settings 3 - C+ 3.2 V 90 uS 185 Hz Strong paraesthesias and starting to feel like his eye is closing (previously seen by KW as well) THRESHOLD REACHED CONTACT CHANGE 3 - 2+ 2.0 V 90 uS 185 Hz Difficult to write 3 - 2+ 2.5 V 90 uS 185 Hz better writing 3 - 2+ 3.0 V 90 uS 185 Hz Writing continues to improve but still not as good as baseline 3 - 2+ 3.5 V 90 uS 185 Hz No change 3 - 2+ 4.0 V 90 uS 185 Hz Writing may be better than baseline-no action or postural tremor 3 - 2+ 4.3 V 90 uS 185 Hz Even better, with the exception of a few letters in the middle of his last name, it is more legible than baseline 3 - 2+ 4.5 V 90 uS 185 Hz Writing even more improved and he said it is the best it has been in a while I had planned on looking for side effect threshold to look for and program a range even though the plan was to keep it on these settings, however, he was feeling so good so he did not want to do that. Of note, when I programmed his old settings back into Group A, as it neared and was at the settings, he felt less relaxed and his eye started closing but then relaxed. documented in this encounter [facility] 09-04-2023 Note HNO ID: [id number] Author: Mila Andino APRN.CNP Service: ? Author Type: Nurse Practitioner Type: Progress Notes Filed: 09/04/2023 11:18 AM Note Text: [facility] - FOLLOW UP EVALUATION Ny Hoyos DO [address] [id number] Dear Ny Hoyos DO: I had the pleasure of seeing Mr. Marroquin for follow-up today. As you know he is a 77 year old left-handed male with a history of essential tremor since 2008. He had Right VIM DBS implanted in 2013. His battery was last replaced in January 2022 with an RC. He is seen alone. Subjective Previous Plan-02/08/2023 Visit: Essential tremor/DBS: I have changed your settings today. You do have the ability, if needed, to go up by one push every 3-5 days. If you have any side effects, go back to the last tolerated setting and let me know. Please do not increase it if your tremor is well controlled. If you have any problem with these new settings (GROUP B) and need to return to the settings you came in on (GROUP A), you can do this with the following steps: -Push the [place] check button and then hold the recreation programmer up to your battery. -Using the navigator pad at the bottom of your recreation programmer, push the down arrow to put the rectangular box on the screen around the line with the letter B. -Next, push the right side arrow on the navigator pad. You will now see letters A and B. Use either the up arrow or the down arrow on the navigator pad to move the rectangular box around the desired group (Again, GROUP B is the new settings and GROUP A is the settings you came in on). -Push the [place] check button and then hold the recreation programmer up to your battery. You should now be on GROUP A. Anxiety: Increase Buspar to 10mg three times daily. If you do not tolerate it, please go back to two times daily and let me know. Patient's perception of importance for healthcare provider to let them know of research trials for which they may be eligible? Very Important Interval History: He said the most recent settings did not help as much and he wants to go back to the old settings. He has been going to [employer] three times a week and this is helping his balance. He has not had any falls. He did not tolerate more than a total of 40mg/daily of Buspar so he has settled at two tablets of the 10mg two times daily. He was prescribed Xanax elsewhere but takes it only rarely. Movement Disorders Medications Schedule - as of the start of the visit: Medications 6am 1pm Bedtime Buspar 10mg 1 1 1 ALLERGIES Allergen Reactions Bee Sting Rash Penicillins Hives Seasonal Allergies Unknown Current Outpatient Medications Medication Sig atorvastatin (LIPITOR) 80 mg tablet 0.5 tablets once daily. omeprazole (PRILOSEC) 20 mg capsule Take 20 mg by mouth once daily. celecoxib (CELEBREX) 200 mg capsule Take 200 mg by mouth once daily. aspirin, enteric coated (ASPIRIN, ENTERIC COATED) 81 mg EC tablet Take 81 mg by mouth once daily. fluticasone (FLONASE) 50 mcg/actuation nasal spray Use 1 [place] in each nostril once daily. docusate sodium (COLACE) 100 mg capsule Take 1 capsule by mouth twice daily as needed for Constipation. busPIRone (BUSPAR) 10 mg tablet Take 2 tablets by mouth two times a day. Cholecalciferol, Vitamin D3, 125 mcg (5,000 unit) cap Take 1 capsule by mouth every morning. ALPRAZolam (XANAX) 0.25 mg tablet TAKE 1 TABLET BY MOUTH TWICE DAILY (IN THE MORNING and AT BEDTIME) No current facility-administered medications for this visit. Objective Vital Signs: BP 129/69 (BP Site: Right Arm, BP Position: Sitting, BP Cuff Size: Regular Adult) Pulse 63 Ht 188 cm (6' 2 ) Wt 95.1 kg (209 lb 9.6 oz) SpO2 95% BMI 26.91 kg/m? Orthostatic Vitals: None for this encounter Weight: 95.1 kg (209 lb 9.6 oz) Height: 188 cm (6' 2 ) No LMP for male patient. Body mass index is 26.91 kg/m?. Movement Disorders Scales Performed: Uvvk-Moxcgl-Imbfx Tremor Scale Face Tremor At Rest: 2 - Moderate amplitude. May be intermittent Voice Tremor Action and Intention: 0 - None. Head Tremor At Rest: 3 - Marked amplitude. Posture Holdin - Marked amplitude. Action and Intention: RUE Tremor At Rest: 0 - None. Posture Holdin - Moderate amplitude. May be intermittent. Action and Intention: 3 - Marked amplitude. LUE Tremor At Rest: 0 - None. Posture Holdin - Moderate amplitude. May be intermittent. Action and Intention: 3 - Marked amplitude. Trunk Tremor At Rest: 0 - None. Posture Holding: RLE Tremor At Rest: 0 - None. Posture Holding: Action and Intention: LLE Tremor At Rest: 0 - None. Pertinent Studies 04/19/21 B12 [id number] 06/09/[address] Impression: Right DBS placement with resolution of pneumocephalus. No acute intracranial process. Assessment and Plan: Assessment Mr. Marroquin is a left-handed 77 year old year old male with essential tremor (more content not included)... [facility] 09-04-2023 History of Presen t illness Narrative [facility] - FOLLOW UP EVALUATION Ny Hoyos DO [address] [place] [address] Dear Ny Hoyos DO: I had the pleasure of seeing Mr. Marroquin for follow-up today. As you know he is a 77 year old left-handed male with a history of essential tremor since 2008. He had Right VIM DBS implanted in 2013. His battery was last replaced in January 2022 with an RC. He is seen alone. Subjective Previous Plan-02/08/2023 Visit: Essential tremor/DBS: I have changed your settings today. You do have the ability, if needed, to go up by one push every 3-5 days. If you have any side effects, go back to the last tolerated setting and let me know. Please do not increase it if your tremor is well controlled. If you have any problem with these new settings (GROUP B) and need to return to the settings you came in on (GROUP A), you can do this with the following steps: -Push the [place] check button and then hold the recreation programmer up to your battery. -Using the navigator pad at the bottom of your recreation programmer, push the down arrow to put the rectangular box on the screen around the line with the letter B. -Next, push the right side arrow on the navigator pad. You will now see letters A and B. Use either the up arrow or the down arrow on the navigator pad to move the rectangular box around the desired group (Again, GROUP B is the new settings and GROUP A is the settings you came in on). -Push the [place] check button and then hold the recreation programmer up to your battery. You should now be on GROUP A. Anxiety: Increase Buspar to 10mg three times daily. If you do not tolerate it, please go back to two times daily and let me know. Patient's perception of importance for healthcare provider to let them know of research trials for which they may be eligible? Very Important Interval History: He said the most recent settings did not help as much and he wants to go back to the old settings. He has been going to [employer] three times a week and this is helping his balance. He has not had any falls. He did not tolerate more than a total of 40mg/daily of Buspar so he has settled at two tablets of the 10mg two times daily. He was prescribed Xanax elsewhere but takes it only rarely. Movement Disorders Medications Schedule - as of the start of the visit: Medications 6am 1pm Bedtime Buspar 10mg 1 1 1 ALLERGIES Allergen Reactions Bee Sting Rash Penicillins Hives Seasonal Allergies Unknown Current Outpatient Medications Medication Sig atorvastatin (LIPITOR) 80 mg tablet 0.5 tablets once daily. omeprazole (PRILOSEC) 20 mg capsule Take 20 mg by mouth once daily. celecoxib (CELEBREX) 200 mg capsule Take 200 mg by mouth once daily. aspirin, enteric coated (ASPIRIN, ENTERIC COATED) 81 mg EC tablet Take 81 mg by mouth once daily. fluticasone (FLONASE) 50 mcg/actuation nasal spray Use 1 [place] in each nostril once daily. docusate sodium (COLACE) 100 mg capsule Take 1 capsule by mouth twice daily as needed for Constipation. busPIRone (BUSPAR) 10 mg tablet Take 2 tablets by mouth two times a day. Cholecalciferol, Vitamin D3, 125 mcg (5,000 unit) cap Take 1 capsule by mouth every morning. ALPRAZolam (XANAX) 0.25 mg tablet TAKE 1 TABLET BY MOUTH TWICE DAILY (IN THE MORNING and AT BEDTIME) No current facility-administered medications for this visit. Objective Vital Signs: BP 129/69 (BP Site: Right Arm, BP Position: Sitting, BP Cuff Size: Regular Adult) Pulse 63 Ht 188 cm (6' 2 ) Wt 95.1 kg (209 lb 9.6 oz) SpO2 95% BMI 26.91 kg/m Orthostatic Vitals: None for this encounter Weight: 95.1 kg (209 lb 9.6 oz) Height: 188 cm (6' 2 ) No LMP for male patient. Body mass index is 26.91 kg/m . Movement Disorders Scales Performed: Extd-Rfvkfq-Xtuah Tremor Scale Face Tremor At Rest: 2 - Moderate amplitude. May be intermittent Voice Tremor Action and Intention: 0 - None. Head Tremor At Rest: 3 - Marked amplitude. Posture Holdin - Marked amplitude. Action and Intention: RUE Tremor At Rest: 0 - None. Posture Holdin - Moderate amplitude. May be intermittent. Action and Intention: 3 - Marked amplitude. LUE Tremor At Rest: 0 - None. Posture Holdin - Moderate amplitude. May be intermittent. Action and Intention: 3 - Marked amplitude. Trunk Tremor At Rest: 0 - None. Posture Holding: RLE Tremor At Rest: 0 - None. Posture Holding: Action and Intention: LLE Tremor At Rest: 0 - None. Pertinent Studies 04/19/21 B12 [id number] 06/09/[address] Impression: Right DBS placement with resolution of pneumocephalus. No acute intracranial process. Assessment and Plan: Assessment Mr. Marroquin is a left-handed 77 year old year old male with essential tremor since 2008. He had Right VIM DBS implanted in 2013. His battery was last replaced in January 2022 with an RC. He also has anxiety. After his last programming, his tremor was better but this only lasted for a few days so he is asking to go back on his previous settings. He was not comfortable increasing it (as he did have a range) or changing it back on his own, so he waited until today. Though we never felt the unilateral DBS was helping his head tremor, when I turned it back to the previous settings it was significantly better going from a severe head tremor to a mild one so apparently it was helping much more than we realized. His hand tremor also went away. If this does not hold or he has difficulty tolerating it for some reason even though he tolerated it fine before, he will let me know and we can work on the settings he came in on today since there is still more that can be done with these. I did offer to do this today, but he just wanted to go back to the old ones. I also strongly encouraged him to call me when he has problems and not wait until his visit as since he is not comfortable doing this on his own, I could have walked him through this months ago instead of him suffering for so many months. The following are the current problems noted and addressed during this visit: Essential tremor (primary encounter diagnosis) Anxiety S/p deep brain stimulator placement Plan 09/04/2023 Visit: Essential tremor/DBS: Continue current settings (the ones from last visit that you asked to be placed back on), but if you feel you need programming, please let me know. Anxiety: Continue Buspar 10mg two tablets two times daily at the times below Updated Movement Disorders Medication Schedule: Medications 6am 4pm Buspar 10mg 2 2 Total time spent complex programming deep brain stimulators: 8 (10:43am-10:51am) minutes. Multiple symptoms and potential side effects were monitored such as a reduction of symptoms as well as side effects including but not limited to paresthesias, tonic contractions, lightheadedness, speech changes and gait changes Mila Andino APRN.[employer] documented in this encounter [facility] 04-11-2023 Miscellaneous Notes Attempted to reach patient at 12 pm- no answer unable to leave voicemail ; mail box is not set up 2nd attempt at 1:07 pm no answer answer. Jennie Cisneros ----- Message from Mila Andino APRN.CNP sent at 04/11/2023 11:52 AM EDT ----- My 4pm is apparently cancelling tomorrow. Please offer it to Mr Marroquin. If he does not take it please let me know as I have many others I can send you. Also please do not cancel it as I do not want someone else to get in there while we are finding someone to take it. Thanks! Mila documented in this encounter [facility] 04-06-2023 Miscellaneous Notes I spoke with him. His tremor worsened over time. I asked if he went up on the stimulator since I had provided him with a range and he said he did not. I asked if he wanted me to walk him through doing this or walk him through changing back to the previous settings and he said he does not want to, he just wants to come into the office. He said he would like to come in within the next few weeks. I did offer him appointments downtown since I have openings there but he does not want to drive downtown anymore. I told him that currently I do not have any openings but I will try to add him on as soon as possible and he said he will wait until I can get him into [facility]. He also asked if I could increase his BuSpar as he said though it helps him, he continues to have anxiety. He said he is tolerating it well and not having any problems. He is going to take 2 tablets in the morning and 1 tablet in the afternoon and evening for a week and then if tolerated, he will take 2 tablets in the morning and evening and 1 tablet in the afternoon. A new prescription was sent in for this. Mila Andino APRN-LAURIE calling again. Aware provider is out today. She is looking for sooner appt. Pt's called - she feels he needs a DBS ADJ as his tremors have become much worse. I don't see anything soon that is available. [phone] documented in this encounter [facility] 04-01-2023 Evaluation note Encounter Date Diagnosis Assessment Notes March, Strain of lumbar region, initial encounter (ICD-10 - S39.012A) Low back pain home care material was printed [facility] Other 04-06-2023 Instructions* Patient Instructions* Mila Andino APRN.[employer] - 02/08/2023 1:38 PM EDT It was a pleasure to see you today. We addressed the following diagnoses: Essential tremor (primary encounter diagnosis) S/p deep brain stimulator placement My recommendations are as follows: 02/08/2023 Visit: Essential tremor/DBS: I have changed your settings today. You do have the ability, if needed, to go up by one push every 3-5 days. If you have any side effects, go back to the last tolerated setting and let me know. Please do not increase it if your tremor is well controlled. If you have any problem with these new settings (GROUP B) and need to return to the settings you came in on (GROUP A), you can do this with the following steps: -Push the [place] check button and then hold the recreation programmer up to your battery. -Using the navigator pad at the bottom of your recreation programmer, push the down arrow to put the rectangular box on the screen around the line with the letter B. -Next, push the right side arrow on the navigator pad. You will now see letters A and B. Use eitherthe up arrow or the down arrow on the navigator pad to move the rectangular box around the desired group (Again, GROUP B is the new settings and GROUP A is the settings you came in on). -Push the [place] check button and then hold the recreation programmer up to your battery. You should now be on GROUP A. Anxiety: Increase Buspar to 10mg three times daily. If you do not tolerate it, please go back to two times daily and let me know. Patient's perception of importance for healthcare provider to let them know of research trials for which they may be eligible? Very Important Movement Disorders Medication Schedule: Medications 6am 1pm Bedtime Buspar 10mg 1 1 1 Return in about 1 year (around 02/09/2024). If there are any concerns before your next visit, please call or you can send a message through [facility]. You can also now schedule and select appointments through [facility]. Mila Andino APRN.LAURIE documented in this [facility] Procedure note* Mila Andino APRN.CNP - 02/08/2023 1:06 PM EDT DBS programmin:08pm-1:29pm Right chest RC-placed in January 2022 Battery: 100% with excellent coupl-LELE 01/03/36 System impedances were checked and are within normal ranges. INITIAL SETTINGS: ACTIVE GROUP B Right VIM DBS 3 - 2+ 5.0 V (3.0-5.0) 100 uS 185 Hz Therapeutic Impedance: 1049 ohms Current: 3.7 mA FINAL SETTINGS ACTIVE GROUP B 2-3+ 3.8 (2.0-4.4) V 60uS 130Hz Therapeutic Impedance: 1102 ohms Current: 4.6mA INACTIVE GROUP A BASELINE SETTINGS Right VIM DBS 3 - 2+ 5.0 V (3.0-5.0) 100 uS 185 Hz Today's Programming 02/08/23 Right VIM DBS 3 - 2+ 5.0 V 100 uS 185 Hz BASELINE SETTINGS ++CONTACT CHANGE++ 2-3+ 3.5 V 60uS 130Hz no tremor with rest, ftn, or postural and spiral looks good. Name looks better as well. 2-3+ 3.8 V 60uS 130HZ Can also drink from a cup without hand tremor or spilling (when at mouth, slightly more difficult due to head tremor but still can do it without spilling-head is better too but not sure if he is more relaxed or actually related 2-3+ 4.2V-4.5V 60uS 130Hz transient tingling 2-3+ 4.6V 60uS 130Hz full body numbness that is uncomfortable and repeatable- THRESHOLD REACHED We discussed trying for other settings that work also, but he declined further programming. Programming 02/17/21: I turned it off initially to see if gait improved with it off and his gait is unchanged with DBS off. 3 - 2+ 4.5 V 90 uS 185 Hz BASELINE SETTINGS 1-2-3+ 1.5V 60uS 185Hz Tingling in his fingers, transient 1-2-3+ 1.6-3.5V 60uS 185Hz No change in head tremor and developed non-transient parasthesias Right VIM DBS Programming: -I put him back on GROUP A (previous settings) at his request. He was fine at first, but after approximately 5-10 seconds, his left eye closed and his left lip pulled up and he could not speak. I immediately took it down to 1.8V and after a few seconds it went away. I then slowly increased it back up over time. When I got to 2.6V, he started to feel the left eye started to close and it did not goaway. I tried this a few times going slower each time, but I could never get past 2.7V before he started noticing changes. Immediately upon changing to Group B he said he felt better. Returned to baseline: 3 - 2+ 4.5 V 90 uS 185 Hz BASELINE 3 - 2+ 4.6 V 90 uS 185 Hz Handwriting improved but requires more concentration, no side effects 3 - 2+ 4.7 V 90 uS 185 Hz Further improvement noted without s/e 3 - 2+ 4.8 V 90 uS 185 Hz Further improvement noted without s/e 3 - 2+ 4.9 V 90 uS 185 Hz No change 3 - 2+ 5.0 V 90 uS 185 Hz No change 3 - 2+ 4.5 V 100 uS 185 Hz Head tremor may be worse but action and postural tremor are controlled 3 - 2+ 4.6 V-4.8V 100 uS 185 Hz Head improved and the writing improved the most at 4.7-4.8, no sideeffects 3 - 2+ 4.8 V 90 uS 185 Hz These are the settings he felt best on before, but this time while still good, he did have a little more difficulty and his writing was slightly more shaky 3 - 2+ 4.9 V 100 uS 185 Hz Further improvement noted without s/e 3 - 2+ 5.0 V 100uS 185 Hz Other than slight tremor getting started with the spiral, there was not any tremor with the spiral otherwise or with writing and he said this feels the best it has all day. He also did not have any left hand tremor at rest, with action or with posture. Previous Right VIM programmin - C+ 3.0 V 90 uS 185 Hz Baseline settings 3 - C+ 3.2 V 90 uS 185 Hz Strong paraesthesias and starting to feel like his eye is closing (previously seen by [facility]W as well) THRESHOLD REACHED CONTACT CHANGE 3 - 2+ 2.0 V 90 uS 185 Hz Difficult to write 3 - 2+ 2.5 V 90 uS 185 Hz better writing 3 - 2+ 3.0 V 90 uS 185 Hz Writing continues to improve but still not as good as baseline 3 - 2+ 3.5 V 90 uS 185 Hz No change 3 - 2+ 4.0 V 90 uS 185 Hz Writing may be better than baseline-no action or postural tremor 3 - 2+ 4.3 V 90 uS 185 Hz Even better, with the exception of a few letters in the middle of his last name, it is more legible than baseline 3 - 2+ 4.5 V 90 uS 185 Hz Writing even more improved and he said it is the best it has been in a while I had planned on looking for side effect threshold to look for and program a range even though the plan was to keep it on these settings, however, he was feeling so good so he did not want to do that. Of note, when I programmed his old settings back into Group A, as it neared and was at the settings, he felt less relaxed and his eye started closing but then relaxed. documented in this encounterK[facility]04-[facility]23 History of Present illness Narrative* Mila Andino APRN.CNP - 02/08/2023 12:53 PM EDT [facility] - FOLLOW UP EVALUATION Ny Hoyos DO [address] [id number] Dear Ny Hoyos DO: I had the pleasure of seeing Mr. Marroquin for follow-up today. As you know he is a 77 year old left-handed male with a history of essential tremor since 2008. He had Right VIM DBS implanted in 2013. His battery was last replaced in January 2022 with an RC. He is seen alone. Subjective Previous Plan-11/09/2022 Visit: Essential tremor/DBS: Continue current settings but if needed, let me know, and I can bring you in earlier for a programming appointment or see you in February as scheduled Anxiety: Increase Buspar to 10mg three times daily. If you do not tolerate it, please go back to two times daily and let me know. Interval History: His head tremor is the same without the Botox. He drives with a brace on to keep it steady. When he goes to focus, his hand shakes a lot such as with eating. The Buspar is not helping as much as it had been helping. He is taking one tablet two times daily. Movement Disorders Medications Schedule - as of the start of the visit: Medications 7am 12pm Bedtime Buspar 10mg 1 1 1 Questionnaires: In addition, the following activities of daily living that may be affected by tremors were evaluated: Speaking: Affected (severe) Feeding: Affected (mild) Bringing Liquids to Mouth: Affected (mild) Hygiene: Not affected Dressing: Not affected Writing: Affected (severe) Working: Affected (marked) Number of falls in the Last Month: 0 Mood/Behavior Depression: PHQ-9 Score: 4 usually representing no significant (0-4) depression. Anxiety: JOEY-7 Total Score: 5 usually representing mild (5-9) anxiety. Finally, the following table shows the patient's overall global physical and mental health using the PROMIS scale: PROMIS-10 Flowsheet Row Office Visit from 02/08/2023 in Neurology Office Visit from 08/10/2022 in Neurology Global Physical Health T Score 42.3 44.9 Global Mental Health T Score 45.8 41.1 0-10 Standard Pain Scale 2 3 *PROMIS-10 scoring scale: mean = 50, over 50 is above average, under 50 is below average ALLERGIES Allergen Reactions Bee Sting Rash Penicillins Hives Seasonal Allergies Unknown Current Outpatient Medications Medication Sig busPIRone (BUSPAR) 10 mg tablet Take 1 tablet by mouth three times daily. omeprazole (PRILOSEC) 20 mg capsule Take 20 mg by mouth once daily. celecoxib (CELEBREX) 200 mg capsule Take 200 mg by mouth once daily. aspirin, enteric coated (ASPIRIN, ENTERIC COATED) 81 mg EC tablet Take 81 mg by mouth once daily. fluticasone (FLONASE) 50 mcg/actuation nasal spray Use 1 [place] in each nostril once daily. docusate sodium (COLACE) 100 mg capsule Take 1 capsule by mouth twice daily as needed for Constipation. fexofenadine (JENNY ALLERGY) 180 mg tablet Take 1 tablet by mouth once daily. atorvastatin (LIPITOR) 80 mg tablet 0.5 tablets once daily. No current facility-administered medications for this visit. Objective Vital Signs: BP 106/65 (BP Site: Left Arm, BP Position: Sitting, BP Cuff Size: Large Adult) Pulse 72 Ht 188 cm (6' 2 ) Wt 94.4 kg (208 lb 1.6 oz) SpO2 97% BMI 26.72 kg/m Orthostatic Vitals: None for this encounter Weight: 94.4 kg (208 lb 1.6 oz) Height: 188 cm (6' 2 ) No LMP for male patient. Body mass index is 26.72 kg/m . Movement Disorders Scales Performed: Spbo-Xbxorq-Viqzs Tremor Scale Voice Tremor Action and Intention: 0 - None. Head Tremor At Rest: 3 - Marked amplitude. RUE Tremor At Rest: 0 - None. Posture Holdin - None. Action and Intention: 1 - Slight. May be intermittent. LUE Tremor At Rest: 0 - None. Posture Holdin - None. Action and Intention: 0 - None. Trunk Tremor At Rest: 0 - None. Posture Holding: RLE Tremor At Rest: 0 - None. LLE Tremor At Rest: 0 - None. Handwriting 1 - Mildly abnormal. Slightly untidy, tremulous. Drawing Drawing A - Right 2 - Moderately tremulous or crosses lines frequently. Drawing A - Left 1 - Slightly tremulous. May cross lines occasionally. Drawing B - Right 3 - Accomplishes the task with great difficulty. Many errors. Drawing B - Left 2 - Moderately tremulous or crosses lines frequently. Drawing C- Right 1 - Slightly tremulous. May cross lines occasionally. Drawing C - Left 1 - Slightly tremulous. May cross lines occasionally. Procedure: DBS was interrogated, analyzed, and programmed. Details are included in the procedure note. Pertinent Studies 04/19/21 B12 [id number] 06/09/[address] Impression: Right DBS placement with resolution of pneumocephalus. No acute intracranial process. Assessment and Plan: Assessment Mr. Marroquin is a left-handed 77 year old year old male with essential tremor since 2008. He had Right VIM DBS implanted in 2013. His battery was last replaced in January 2022 with an RC. He also hasanxiety. He came in today for an extended programming visit. Typically we have difficulty finding good settings for him but today with a small change, he was significantly better including being able to drinkfrom a cup and writing his name and drawing a spiral without tremor. Hopefully this will continue. In regards to his anxiety, this has been worse lately. He had not increased the BuSpar after the last visit so he is going to try it now. He will keep me posted. The following are the current problems noted and addressed during this visit: Essential tremor (primary encounter diagnosis) S/p deep brain stimulator placement Anxiety Plan 02/08/2023 Visit: Essential tremor/DBS: I have changed your settings today. You do have the ability, if needed, to go up by one push every 3-5 days. If you have any side effects, go back to the last tolerated setting and let me know. Please do not increase it if your tremor is well controlled. If you have any problem with these new settings (GROUP B) and need to return to the settings you came in on (GROUP A), you can do this with the following steps: -Push the [place] check button and then hold the recreation programmer up to your battery. -Using the navigator pad at the bottom of your recreation programmer, push the down arrow to put the rectangular box on the screen around the line with the letter B. -Next, push the right side arrow on the navigator pad. You will now see letters A and B. Use eitherthe up arrow or the down arrow on the navigator pad to move the rectangular box around the desired group (Again, GROUP B is the new settings and GROUP A is the settings you came in on). -Push the [place] check button and then hold the recreation programmer up to your battery. You should now be on GROUP A. Anxiety: Increase Buspar to 10mg three times daily. If you do not tolerate it, please go back to two times daily and let me know. Patient's perception of importance for healthcare provider to let them know of research trials for which they may be eligible? Very Important Updated Movement Disorders Medication Schedule: Medications 6am 1pm Bedtime Buspar 10mg 1 1 1 Medical Decision Making: Problems: Moderate: 2+ stable chronic illnesses Risk: Moderate: Drug management Medical Decision Making Level: 4 - Moderate Total time spent complex programming deep brain stimulators: 21 (1:08pm-1:29pm) minutes. Multiple symptoms and potential side effects were monitored such as a reduction of symptoms as well as side effects including but not limited to paresthesias, tonic contractions, lightheadedness, speech changesand gait changes. Mila Andino APRN.[employer] documented in this encounterK[facility]23 History of Present illness Narrative* Stacy Jones MD - 11/09/2022 12:52 PM EST At appointment with EW today patient stated he did not want to proceed with injections today since pain is managed. Therefore I did not see him. Will keep February appointments for now and cancel if notneeded. documented in this encounterK[facility]01-05-2023 Instructions* Patient Instructions* Mila Andino APRN.LAURIE - 11/09/2022 12:31 PM EST It was a pleasure to see you today. We addressed the following diagnoses: Essential tremor (primary encounter diagnosis) S/p deep brain stimulator placement Anxiety My recommendations are as follows: 11/09/2022 Visit: Essential tremor/DBS: Continue current settings but if needed, let me know, and I can bring you in earlier for a programming appointment or see you in February as scheduled Anxiety: Increase Buspar to 10mg three times daily. If you do not tolerate it, please go back to two times daily and let me know. Movement Disorders Medication Schedule: Medications 7am 12pm Bedtime Buspar 10mg 1 1 1 Return in about 4 months (around 03/09/2023). If there are any concerns before your next visit, please call or you can send a message through [facility]. You can also now schedule and select appointments through [facility]. Mila Andino APRN.LAURIE documented in this encounterK[facility]01-05-2023 Procedure note* Mila Andino APRN.LAURIE - 11/09/2022 12:23 PM EST DBS programming: Right chest RC-placed in January 2022 Battery: 100% with excellent coupl-LELE 01/03/36 System impedances were checked and are within normal ranges. INITIAL AND FINAL SETTINGS: ACTIVE GROUP B Right VIM DBS 3 - 2+ 5.0 V (3.0-5.0) 100 uS 185 Hz Therapeutic Impedance: 1074 ohms Current: 4.7mA Programming 02/17/21: I turned it off initially to see if gait improved with it off and his gait is unchanged with DBS off. 3 - 2+ 4.5 V 90 uS 185 Hz BASELINE SETTINGS 1-2-3+ 1.5V 60uS 185Hz Tingling in his fingers, transient 1-2-3+ 1.6-3.5V 60uS 185Hz No change in head tremor and developed non-transient parasthesias Right VIM DBS Programming: -I put him back on GROUP A (previous settings) at his request. He was fine at first, but after approximately 5-10 seconds, his left eye closed and his left lip pulled up and he could not speak. I immediately took it down to 1.8V and after a few seconds it went away. I then slowly increased it back up over time. When I got to 2.6V, he started to feel the left eye started to close and it did not goaway. I tried this a few times going slower each time, but I could never get past 2.7V before he started noticing changes. Immediately upon changing to Group B he said he felt better. Returned to baseline: 3 - 2+ 4.5 V 90 uS 185 Hz BASELINE 3 - 2+ 4.6 V 90 uS 185 Hz Handwriting improved but requires more concentration, no side effects 3 - 2+ 4.7 V 90 uS 185 Hz Further improvement noted without s/e 3 - 2+ 4.8 V 90 uS 185 Hz Further improvement noted without s/e 3 - 2+ 4.9 V 90 uS 185 Hz No change 3 - 2+ 5.0 V 90 uS 185 Hz No change 3 - 2+ 4.5 V 100 uS 185 Hz Head tremor may be worse but action and postural tremor are controlled 3 - 2+ 4.6 V-4.8V 100 uS 185 Hz Head improved and the writing improved the most at 4.7-4.8, no sideeffects 3 - 2+ 4.8 V 90 uS 185 Hz These are the settings he felt best on before, but this time while still good, he did have a little more difficulty and his writing was slightly more shaky 3 - 2+ 4.9 V 100 uS 185 Hz Further improvement noted without s/e 3 - 2+ 5.0 V 100uS 185 Hz Other than slight tremor getting started with the spiral, there was not any tremor with the spiral otherwise or with writing and he said this feels the best it has all day. He also did not have any left hand tremor at rest, with action or with posture. Previous Right VIM programmin - C+ 3.0 V 90 uS 185 Hz Baseline settings 3 - C+ 3.2 V 90 uS 185 Hz Strong paraesthesias and starting to feel like his eye is closing (previously seen by [facility] as well) THRESHOLD REACHED CONTACT CHANGE 3 - 2+ 2.0 V 90 uS 185 Hz Difficult to write 3 - 2+ 2.5 V 90 uS 185 Hz better writing 3 - 2+ 3.0 V 90 uS 185 Hz Writing continues to improve but still not as good as baseline 3 - 2+ 3.5 V 90 uS 185 Hz No change 3 - 2+ 4.0 V 90 uS 185 Hz Writing may be better than baseline-no action or postural tremor 3 - 2+ 4.3 V 90 uS 185 Hz Even better, with the exception of a few letters in the middle of his last name, it is more legible than baseline 3 - 2+ 4.5 V 90 uS 185 Hz Writing even more improved and he said it is the best it has been in a while I had planned on looking for side effect threshold to look for and program a range even though the plan was to keep it on these settings, however, he was feeling so good so he did not want to do that. Of note, when I programmed his old settings back into Group A, as it neared and was at the settings, he felt less relaxed and his eye started closing but then relaxed. documented in this encounterK[facility]01-05-2023 History of Present illness Narrative* Mila Andino APRN.[facility] - 11/09/2022 12:17 PM EST [facility] - FOLLOW UP EVALUATION Ny Hoyos DO [address] [place] [address] Dear Ny Hoyos DO: I had the pleasure of seeing Mr. Marroquin for follow-up today. As you know he is a 76 year old left-handed male with a history of essential tremor since 2008. He had Right VIM DBS implanted in 2013. His battery was last replaced in January 2022 with an RC. He is seen alone. Subjective Previous Plan-08/10/2022 Visit: Essential tremor: Continue current DBS settings Continue Myobloc injections as scheduled Anxiety: Increase the first dose of Buspar to 10mg and then if tolerated, increase the second dose to 10mg after one week and then if tolerated and needed, increase it to 10mg three times daily . Interval History: He does not feel that he needs programmed today as he does not have tremor in hishands except when anxious. He is tolerating the Buspar well and would like to incerase it to three times daily. He is going to stop getting the Botox injections as he is taking celebrex to help the pain in his neck and the Botox did not help the tremor. Movement Disorders Medications Schedule - as of the start of the visit: Medications 7am 12pm Bedtime Buspar 10mg 1 1 1 ALLERGIES Allergen Reactions Bee Sting Rash Penicillins Hives Seasonal Allergies Unknown Current Outpatient Medications Medication Sig busPIRone (BUSPAR) 10 mg tablet Take 1 tablet by mouth three times daily. omeprazole (PRILOSEC) 20 mg capsule Take 20 mg by mouth once daily. celecoxib (CELEBREX) 200 mg capsule Take 200 mg by mouth once daily. aspirin, enteric coated (ASPIRIN, ENTERIC COATED) 81 mg EC tablet Take 81 mg by mouth once daily. fluticasone (FLONASE) 50 mcg/actuation nasal spray Use 1 [place] in each nostril once daily. docusate sodium (COLACE) 100 mg capsule Take 1 capsule by mouth twice daily as needed for Constipation. atorvastatin (LIPITOR) 40 mg tablet Take 1 tablet by mouth q 24 HR. No current facility-administered medications for this visit. Objective Vital Signs: BP 115/76 (BP Site: Left Arm, BP Position: Sitting, BP Cuff Size: Large Adult) Pulse 72 Ht 188 cm (6' 2 ) Wt 94.4 kg (208 lb 1.6 oz) SpO2 97% BMI 26.72 kg/m Orthostatic Vitals: None for this encounter Weight: 94.4 kg (208 lb 1.6 oz) Height: 188 cm (6' 2 ) No LMP for male patient. Body mass index is 26.72 kg/m . Movement Disorders Scales Performed: Andi-Jcwjhj-Jyeur Tremor Scale Voice Tremor Action and Intention: 0 - None. Head Tremor At Rest: 3 - Marked amplitude. Posture Holding: Action and Intention: RUE Tremor At Rest: 0 - None. Posture Holdin - None. Action and Intention: 1 - Slight. May be intermittent. LUE Tremor At Rest: 0 - None. Posture Holdin - None. Action and Intention: 0 - None. Trunk Tremor At Rest: 0 - None. Posture Holding: RLE Tremor At Rest: 0 - None. Posture Holding: Action and Intention: LLE Tremor At Rest: 0 - None. Pertinent Studies 04/19/21 B12 [id number] 06/09/[address] Impression: Right DBS placement with resolution of pneumocephalus. No acute intracranial process. Assessment and Plan: Assessment Mr. Marroquin is a left-handed 76 year old year old male with essential tremor since 2008. He had Right VIM DBS implanted in 2013. His battery was last replaced in January 2022 with an RC. He also hasanxiety. He does not feel the Botox has been helpful to his head tremor and since Celebrex is helping the pain, he is not going to get injections today but will keep his next appointment should he find that it was helping more than he realized. He also did not feel programming was necessary today as he mostly has tremor when he is anxious so instead would like to increase the BuSpar to taking it 3 times daily. I think this is reasonable but if the anxiety is well treated and he is still having some tremor, then at his next office visit or before, we can do some programming. The following are the current problems noted and addressed during this visit: Essential tremor (primary encounter diagnosis) S/p deep brain stimulator placement Anxiety Plan 11/09/2022 Visit: Essential tremor/DBS: Continue current settings but if needed, let me know, and I can bring you in earlier for a programming appointment or see you in February as scheduled Anxiety: Increase Buspar to 10mg three times daily. If you do not tolerate it, please go back to two times daily and let me know. Updated Movement Disorders Medication Schedule: Medications 7am 12pm Bedtime Buspar 10mg 1 1 1 Mila Andino APRN.[employer] documented in this encounterK[facility]12-13-20[facility] Evaluation note* Encounter Date Diagnosis Assessment Notes Treatment Notes Treatment Clinical Notes Oct, Cough (ICD-10 - R05.9) covid pos, flu neg, see above. Oct, COVID (ICD-10 - U07.1) Covid test pos in office today. Supportive care as directed. Push fluids and rest. Pt is to take otc antipyretic prn for fever and aches. Pt is to take rx cough suppressant prn for cough. They are to follow the recommended stay at home quarantine rules for 5 days from onset of sx with 5 days of mask wearing in public and they are to avoid contact with others in the home. Pt is to be re-evaluated after tx if sx worsen or don't improve by pcp or UC. Discussed at length sx of resp distress that would indicate need for immediate ER tx. Sx include but not limited to worsening SOB, wheeze, dyspnea, difficulty swallowing or breathing, and chest pain. Go straight to ER for any of these sx. Pt is to call the office with any questions or concerns regarding dx and tx. Information sheet with test results and quarantine guidelines was provided to pt in office today. Pt was referred to PCP for chronic management. Pt understood and agreed to tx plan. [facility] Other 10-06-2022 History of Present illness Narrative* Stacy Jones MD - 08/10/2022 10:50 AM EDT Images from the original note were not included. [facility] Neurotoxin Visit Date: August 10, 2022 Name: Yordan Marroquin SUBJECTIVE: Subjective history Relief of pain, ROM, not tremor lasted 2+ months. Pain was gone by the time he got home. Returned 2-3 weeks ago. Worse when nervous. Doesn't bother him when he goes to sleep. Rests chin on something. Historical/ Initial Dose Diagnosis: Cervical dystonia (G24.3) Date of diagnosis: 2012 Other treatments that have been tried and failed: Medications Other DBS Date of first neurotoxin treatment: 03/25/2019 Type of neurotoxin given: OnabotulinumtoxinA (Botox) Frequency of current neurotoxin treatment: 90 days Estimated frequency and duration of treatment: continue with current injection interval; will reassess after 1 year Last Injection Notes Date of last Injection: 05/02/2022 Type of neurotoxin: RimabotulinumtoxinB (Myobloc) Total amount injected: 5,000 units Degree of effectiveness of last injection:50% Duration of effect: 12 week(s) Side effects related to last injection: None Current pain symptoms: Yes neck Current functional limitations: moderate Questionnaires: In addition, the following activities of daily living that may be affected by tremors were evaluated: Speaking: Affected (mild occasionally) Feeding: Affected (mild) Bringing Liquids to Mouth: Affected (mild) Hygiene: Dressing: Writing: Affected (moderate) Working: Affected (moderate) Number of falls in the Last Month: 0 Mood/Behavior Depression: PHQ-9 Score: 5 usually representing mild (5-9) depression. Anxiety: JOEY-7 Total Score: 13 usually representing moderate (10-14) anxiety. Finally, the following table shows the patient's overall global physical and mental health using the PROMIS scale: PROMIS-10 Flowsheet Row Office Visit from 08/10/2022 in Neurology Most recent reading at 08/10/2022 10:08 AM Office Visit from 08/10/2022 in Neurology Most recent reading at 08/10/2022 10:08 AM Global Physical Health T Score 44.9 44.9 Global Mental Health T Score 41.1 41.1 0-10 Standard Pain Scale 3 3 *PROMIS-10 scoring scale: mean = 50, over 50 is above average, under 50 is below average Allergies: ALLERGIES Allergen Reactions Penicillins Hives Seasonal Allergies Unknown Current Medications: Current Outpatient Medications Medication Sig omeprazole (PRILOSEC) 20 mg capsule Take 20 mg by mouth once daily. atorvastatin (LIPITOR) 40 mg tablet Take 40 mg by mouth q 24 HR. aspirin, enteric coated (ASPIRIN, ENTERIC COATED) 81 mg EC tablet Take 81 mg by mouth once daily. fluticasone (FLONASE) 50 mcg/actuation nasal spray Use 1 [place] in each nostril once daily. docusate sodium (COLACE) 100 mg capsule Take 1 capsule by mouth twice daily as needed for Constipation. busPIRone (BUSPAR) 10 mg tablet Take 1 tablet by mouth three times daily. cetirizine (ZYRTEC) 10 mg tablet Take 10 mg by mouth once daily. (Patient not taking: No sig reported) celecoxib (CELEBREX) 200 mg capsule Take 200 mg by mouth once daily. (Patient not taking: No sig reported) Current Facility-Administered Medications Medication Dose Route Frequency botulinum toxin type b 2,500 Units injection (MYOBLOC) 2,500 Units INTRAMUSCULAR ONCE botulinum toxin type b 5,000 Units injection (MYOBLOC) 5,000 Units INTRAMUSCULAR ONCE OBJECTIVE: BP 120/82 Pulse 69 Wt 95.3 kg (210 lb) SpO2 98% BMI 26.96 kg/m Other notable exam findings: yes-yes more than no-no head tremor. SCMs are hypertrophied bilaterally. ASSESSMENT AND PLAN: Mr. Marroquin is a left-handed 76 year old male with Cervical dystonia (G24.3). Tremor continues to be bothersome but tremor was much improved. Increased dose for better efficacy. After obtaining informed consent, neurotoxin injections were carried out as outlined below. Current Injection Note Type of neurotoxin: RimabotulinumtoxinB (Myobloc) Total amount drawn: 7,500 units Total amount injected: 7,500 units Total amount wasted: 0 units Dilution: N/A Administered with EMG guidance: Yes Lot#: [id number] Exp Date: , Today's neurotoxin regimen: Med right midline left Sternocleidomastoid 1500 1500 Splenius capitus 750 750 Semispinalis 1500 1500 Total: 7500 Future plan of care: Follow up: 3 months Neurotoxin change: No Dose change:No Dilution change:No Stacy Jones MD August 10, 2022 12:20 PM Dept of NEUROLOGY TIME OUT/ PROCEDURE NOTE: Informed consent Yordan Marroquin Medical Record: [id number] Procedure: neurotoxin intramuscular injection The risks, benefits and anticipated outcomes of the procedure, the risks and benefits of the alternatives to the procedure and the roles and tasks of the personnel to be involved were discussed with the patient and the patient consents to the procedure and agrees to proceed. I verify that I personally obtained Yordan Marroquin's consent. Stacy Jones MD August 10, 2022 12:20 PM UNIVERSAL PROTOCOL / SAFETY CHECKLIST Procedure to be Performed: neurotoxin injection Sign In: A Moment of CARE was completed. Personnel directly involved wiht the procedure wore the appropriate PPE (Personal Protective Equipment). No special equipment needed. Patient/Surrogate Stated/Verified: Patient name Date of Relative allergies The intended procedure Time Out Communication: Intended patient and procedure match the source documents. Consent documented and matches the intended procedure. No relevant labs, photos, and/or imaging studies were applicable for review. Medications required for procedure verified. No fire risk assessment and interventions applicable. No implant(s) inserted. Sign Out: No specimen collected. No instruments, equipment or retained foreign bodies applicable. Post-procedure follow-up management communicated and Plan of Care Visit completed when applicable. -- Stacy Jones MD documented in this encounterK[facility]28-[facility]22 Instructions* Patient Instructions* Mila Andino APRN.LAURIE - 05/02/2022 12:28 PM EDT It was a pleasure to see you today. We addressed the following diagnoses: Anxiety (primary encounter diagnosis) My recommendations are as follows: 05/02/2022 Visit: Essential tremor: Continue on your current settings and continue getting Myobloc injections Anxiety: Start Buspar 5mg daily. If tolerated, after 5-7 days, crease the Buspar to 5mg two times daily. Then if tolerated and needed, increase the Buspar to 5mg three times daily. I have provided you with a hand out on this medication. Return in about 3 months (around 08/02/2022). If there are any concerns before your next visit, please call or you can send a message through [facility]. You can also now schedule and select appointments through [facility]. Mila Andino APRN.[employer] documented in this encounterK[facility]06-28-2022 Procedure note* Mila Andino APRN.CNP - 05/02/2022 12:17 PM EDT DBS programming: Right chest RC-placed in January 2022 Battery: 100% with excellent coupl-LELE 01/03/36ing System impedances were checked and are within normal ranges. INITIAL AND FINAL SETTINGS: ACTIVE GROUP B Right VIM DBS 3 - 2+ 5.0 V (3.0-5.0) 100 uS 185 Hz Therapeutic Impedance: 1102 ohms Current: 4.6 mA Programming 02/17/21: I turned it off initially to see if gait improved with it off and his gait is unchanged with DBS off. 3 - 2+ 4.5 V 90 uS 185 Hz BASELINE SETTINGS 1-2-3+ 1.5V 60uS 185Hz Tingling in his fingers, transient 1-2-3+ 1.6-3.5V 60uS 185Hz No change in head tremor and developed non-transient parasthesias Right VIM DBS Programming: -I put him back on GROUP A (previous settings) at his request. He was fine at first, but after approximately 5-10 seconds, his left eye closed and his left lip pulled up and he could not speak. I immediately took it down to 1.8V and after a few seconds it went away. I then slowly increased it back up over time. When I got to 2.6V, he started to feel the left eye started to close and it did not goaway. I tried this a few times going slower each time, but I could never get past 2.7V before he started noticing changes. Immediately upon changing to Group B he said he felt better. Returned to baseline: 3 - 2+ 4.5 V 90 uS 185 Hz BASELINE 3 - 2+ 4.6 V 90 uS 185 Hz Handwriting improved but requires more concentration, no side effects 3 - 2+ 4.7 V 90 uS 185 Hz Further improvement noted without s/e 3 - 2+ 4.8 V 90 uS 185 Hz Further improvement noted without s/e 3 - 2+ 4.9 V 90 uS 185 Hz No change 3 - 2+ 5.0 V 90 uS 185 Hz No change 3 - 2+ 4.5 V 100 uS 185 Hz Head tremor may be worse but action and postural tremor are controlled 3 - 2+ 4.6 V-4.8V 100 uS 185 Hz Head improved and the writing improved the most at 4.7-4.8, no sideeffects 3 - 2+ 4.8 V 90 uS 185 Hz These are the settings he felt best on before, but this time while still good, he did have a little more difficulty and his writing was slightly more shaky 3 - 2+ 4.9 V 100 uS 185 Hz Further improvement noted without s/e 3 - 2+ 5.0 V 100uS 185 Hz Other than slight tremor getting started with the spiral, there was not any tremor with the spiral otherwise or with writing and he said this feels the best it has all day. He also did not have any left hand tremor at rest, with action or with posture. Previous Right VIM programmin - C+ 3.0 V 90 uS 185 Hz Baseline settings 3 - C+ 3.2 V 90 uS 185 Hz Strong paraesthesias and starting to feel like his eye is closing (previously seen by [facility] as well) THRESHOLD REACHED CONTACT CHANGE 3 - 2+ 2.0 V 90 uS 185 Hz Difficult to write 3 - 2+ 2.5 V 90 uS 185 Hz better writing 3 - 2+ 3.0 V 90 uS 185 Hz Writing continues to improve but still not as good as baseline 3 - 2+ 3.5 V 90 uS 185 Hz No change 3 - 2+ 4.0 V 90 uS 185 Hz Writing may be better than baseline-no action or postural tremor 3 - 2+ 4.3 V 90 uS 185 Hz Even better, with the exception of a few letters in the middle of his last name, it is more legible than baseline 3 - 2+ 4.5 V 90 uS 185 Hz Writing even more improved and he said it is the best it has been in a while I had planned on looking for side effect threshold to look for and program a range even though the plan was to keep it on these settings, however, he was feeling so good so he did not want to do that. Of note, when I programmed his old settings back into Group A, as it neared and was at the settings, he felt less relaxed and his eye started closing but then relaxed. documented in this encounterK[facility]06-28-2022 History of Present illness Narrative* Mila Andino APRN.LAURIE - 05/02/2022 12:03 PM EDT [facility] - FOLLOW UP EVALUATION Ny Hoyos, DO [address] [place] [address] I had the pleasure of seeing Mr. Marroquin for follow up today. He is a 76 year old left-handed male with essential tremor since 2008. He had Right VIM DBS implanted in 2013. His battery was last replaced in January 2022 with an RC. He is seen with his . Subjective Interval History: His hand tremor is well controlled in his hands except when he is anxious or stressed. His head tremor is still bad. Dr. Jones tried Myobloc today rather than Botox. He has been going to physical therapy for his balance. He does the exercises at home as well. His main concern is anxiety as this gets really bad at times and makes the tremor much worse. He has knowledge of Botox and would like to try this. Tremor speaking Mild voice tremulousness when nervous only. Tremor feeding Moderately abnormal. Frequent spills of peas and similar foods. May bring head at least care home to meet food. Tremor liquids Moderately abnormal. Unable to use a spoon. Uses cup or glass. Tremor hygiene Moderately abnormal. Able to do everything, but with errors. Uses electric razor. Tremor dressing Mildly abnormal. Able to do everything, but is more careful than the average person. Tremor writing Markedly abnormal. Illegible. Tremor working Able to work, but needs to be more careful than the average person. ALLERGIES Allergen Reactions Penicillins Hives Seasonal Allergies Unknown Current Outpatient Medications Medication Sig cetirizine (ZYRTEC) 10 mg tablet Take 10 mg by mouth once daily. celecoxib (CELEBREX) 200 mg capsule Take 200 mg by mouth once daily. aspirin, enteric coated (ASPIRIN, ENTERIC COATED) 81 mg EC tablet Take 81 mg by mouth once daily. fluticasone (FLONASE) 50 mcg/actuation nasal spray Use 1 [place] in each nostril once daily. docusate sodium (COLACE) 100 mg capsule Take 1 capsule by mouth twice daily as needed for Constipation. busPIRone (BUSPAR) 5 mg tablet Take 1 tablet by mouth three times daily. No current facility-administered medications for this visit. Objective Vital Signs: BP 129/75 (BP Site: Right Arm, BP Position: Sitting, BP Cuff Size: Large Adult) Pulse 63 Ht 188cm (6' 2 ) Wt 94.3 kg (207 lb 12.8 oz) SpO2 99% BMI 26.68 kg/m Movement Disorders Scales Performed: Vqdt-Cgubqo-Rlgwc Tremor Scale Voice Tremor Action and Intention: 0 - None. Head Tremor At Rest: 3 - Marked amplitude. Posture Holding: Action and Intention: RUE Tremor At Rest: 0 - None. Posture Holdin - None. Action and Intention: 0 - None. LUE Tremor At Rest: 0 - None. Posture Holdin - None. Action and Intention: 0 - None. Trunk Tremor At Rest: 0 - None. Posture Holding: RLE Tremor At Rest: 0 - None. Posture Holding: Action and Intention: LLE Tremor At Rest: 0 - None. Pertinent Studies 04/19/21 B12 [id number] 06/09/[address] Impression: Right DBS placement with resolution of pneumocephalus. No acute intracranial process. Assessment and Plan: Assessment Mr. Marroquin is a left-handed 76 year old male with essential tremor since 2008. He had Right VIMDBS implanted in 2013 with his battery last replaced in January 2022 with a rechargeable battery. Charging is going well. His hand tremor is well controlled except during times of high anxiety. The pain in his neck is better with the botulinum toxin but not the tremor though Myobloc was tried today to see if this makes a difference. He asked if he could try Buspar for his anxiety as he has knowledge of this medication and feels his anxiety can be disabling since it then affects his tremor. We discussed that this medication does not typically help the depression unless used as augmentation and he does have a lot of depression also, but he would like to try the Buspar first to see if his mood improves with less anxiety especially since he has less tremor when the anxiety is controlled. We discussed potential side effects and I gave him a hand out on this as well. The following are the current problems noted and addressed during this visit: Essential tremor Anxiety (primary encounter diagnosis) S/p deep brain stimulator placement Plan 05/02/2022 Visit: Essential tremor: Continue on your current settings and continue getting Myobloc injections Anxiety: Start Buspar 5mg daily. If tolerated, after 5-7 days, crease the Buspar to 5mg two times daily. Then if tolerated and needed, increase the Buspar to 5mg three times daily. Medical Decision Making: Problems: Moderate: 1+ chronic illnesses with change Risk: Moderate: Drug management Medical Decision Making Level: 4 - Moderate Mila Andino APRN.LAURIE documented in this encounterK[facility]06-28-2022 History of Present illness Narrative* Stacy Jones MD - 05/02/2022 11:14 AM EDT Images from the original note were not included. [facility] Neurotoxin Visit Date: May 02, 2022 Name: Yordan Marroquin SUBJECTIVE: Historical/ Initial Dose Diagnosis: Cervical dystonia (G24.3) Date of diagnosis:2012 Other treatments that have been tried and failed: Medications and DBS Date of first neurotoxin treatment: 03/25/[address] Rand Type of neurotoxin given: Botox: J0585 Frequency of current neurotoxin treatment: 90days Estimated frequency and duration of treatment: continue with current injection interval; will reassess after 1 year Last Injection Notes Date of last Injection:10/06/21 Type of neurotoxin: Botox: J0585 Total amount injected: 300 units Dilution: NS 1:1 Administered with EMG guidance: Yes Effectiveness of last injection: Again no effect. Had DBS battery changed and no effect on head tremor or pain. More bothered by tremor than pain. Has reduced ROM with head turn. Latency period of last injection: Wearing off period of last injection: n/a week(s) Side effects related to last injection: None Current pain symptoms: Yes (location)neck Current functional limitations: 3(severe) Movement Disorders/Pertinent Medications Schedule - as of the start of the visit: ALLERGIES Allergen Reactions Penicillins Hives Seasonal Allergies Unknown Current Medications: Current Outpatient Medications Medication Sig cetirizine (ZYRTEC) 10 mg tablet Take 10 mg by mouth once daily. celecoxib (CELEBREX) 200 mg capsule Take 200 mg by mouth once daily. aspirin, enteric coated (ASPIRIN, ENTERIC COATED) 81 mg EC tablet Take 81 mg by mouth once daily. fluticasone (FLONASE) 50 mcg/actuation nasal spray Use 1 [place] in each nostril once daily. docusate sodium (COLACE) 100 mg capsule Take 1 capsule by mouth twice daily as needed for Constipation. Current Facility-Administered Medications Medication Dose Route Frequency botulinum toxin type b 5,000 Units injection (MYOBLOC) 5,000 Units INTRAMUSCULAR ONCE OBJECTIVE: BP 129/75 (BP Site: Right Arm, BP Position: Sitting, BP Cuff Size: Large Adult) Pulse 63 Ht 188cm (6' 2 ) Wt 94.1 kg (207 lb 8 oz) SpO2 99% BMI 26.64 kg/m Special features on today's visit: yes-yes more than no-no head tremor. SCMs are hypertrophied bilaterally. ASSESSMENT AND PLAN: Mr. Marroquin is a left-handed 76 year old male with Cervical dystonia (G24.3). Tremor continues to be bothersome with no effect from Botox last time. Today switched to Myobloc. The following are the current problems noted and addressed during this visit: Cervical dystonia (primary encounter diagnosis) Plan 05/02/2022 Visit: 1. Myobloc today Updated Pertinent Medication Schedule: PROCEDURE NOTE: After obtaining informed consent, neurotoxin injections were carried out as outlined below. TIME OUT/ PROCEDURE NOTE: UNIVERSAL PROTOCOL / SAFETY CHECKLIST Procedure to be Performed: Botulinum toxin injection Sign In: A Moment of CARE was completed. Personnel directly involved with the procedure wore the appropriate PPE (Personal Protective Equipment). No special equipment needed. Patient/Surrogate Stated/Verified: PATIENT VERIFIED(optional for EMERGENT procedures): Patient name, Date of , Relevant allergies and The intended procedure Time Out Communication: Intended patient and procedure match the source documents. Consent documented and matches the intended procedure. No relevant labs, photos, and/or imaging studies were applicable for review. Correct side/site marked and visible. Medications required for procedure verified. No fire risk assessment and interventions applicable. No implant(s) inserted. Sign Out: SIGN OUT (optional for EMERGENT procedures): No specimen collected. No instruments, equipment or retained foreign bodies applicable. Post-procedure follow-up management communicated and Plan of Care Visit completed when applicable. Current Injection Note (05/02/2022) Type of neurotoxin: Myobloc: J0587 Total amount drawn: 5000 units Total amount injected: 5000 units Total amount wasted: 0 units Dilution: N/A Administered with EMG guidance: Yes Injection Site: Cervical dystonia: CPT 18326 Right Left Sternocleidomastoid 1000 1000 Splenius capitus 500 500 Scalene Levator Scapulae Trapezius Semispinalis 1000 1000 Future plan of care: Return in about 3 months (around 08/02/2022) for botulinum toxin. Stacy Jones M.D. Clinical Lens Engraver, [facility] [employer] [facility] Staff, [facility] Department of Neurology [facility] documented in this encounterK[facility]05-20-2022 Miscellaneous Notes* Telephone Encounter - Darlin Paredes - 03/24/2022 10:05 AM EDT Pt's phoned regarding Myobloc appt with Dr. Jones on the same day as he is scheduled with Mila (04/13). Advised per ALEE's note at the Oct 2021 visit, that they were supposed to contact our office in December to discuss. Also advised that ALEE has a full schedule that day and we do not have availability. She said they will discuss with Mila at the appt. * Telephone Encounter - Ce Coats Eleuterio - 03/22/2022 1:26 PM EDT NI PHONE Name of caller : Mrs. Marroquin Relationship to patient : Spouse/ SignificantOther If not self Will need patient permission to release results or disclose health information with called documented in fyi. Was permission obtained from patient ? Yes Patient identified by Name and Date of . ( Yordan Marroquin, 1945). Yes Reason for Call : Pt requesting call from Mila Andino to review combining something with Dr. Jones before 04/13/22 scheduled appt with Mila Andino CNP. Number to return call [phone] Okay to leave a message ? Yes Last office visit 10/06/21 with Mila Andino CNP & Dr. Jones Next office visit 04/13/22 with Mila Andino CNP Thank you calling [facility]. You will receive a return call within 48hours ( or 2 business days if close to the weekend). If you feel that this is an urgent issue and needs immediate attention, it is recommended that you contact your primary care provider office or proceed to your nearest Urgent Care Center of Emergency Room ED for evaluation/treatment. ' documented in this encounterK[facility]03-14-2022 Evaluation note* Encounter Date Diagnosis Assessment Notes Treatment Notes Treatment Clinical Notes Jan, Encounter for removal of sutures (ICD-10 - Z48.02) running stitch to right upper chest wall where deep brain stimulator was placed, incision clean, dry, intact. healing well. no signs of infection. sutures in for 10 days. removed sutures without issues. warned of sigs of infection, will call if those occur. Looks great today. [facility] Other 02-14-2022 Evaluation note* Encounter Date Diagnosis Assessment Notes Treatment Notes Treatment Clinical Notes Dec, Seasonal allergies (ICD-10 - J30.2) [facility] Other 12-14-2021 Evaluation note* Encounter Date Diagnosis Assessment Notes Treatment Notes Treatment Clinical Notes Oct, Seasonal allergies (ICD-10 - J30.2) complaining of a lot of itchy watery eyes and nasal congestion. does have middle ear effusion on exam. is doing flonase, tried jenny in the past without relief. will add astepro as well as zyrtec. Oct, TMJ tenderness, right (ICD-10 - M26.621) will do prednisone to help, he does have dental visit coming up he will discuss with them as well. he knows that in 1 week if not improved he will call the office and will continue a work up. i did go over the side effect of steroids. Oct, Hyperlipidemia, mixed (ICD-10 - E78.2) will update. [facility] Other 11-07-2021 Evaluation note* Encounter Date Diagnosis Assessment Notes Treatment Notes Treatment Clinical Notes Sep, Contact with and (suspected) exposure to other viral communicable diseases (ICD-10 - Z20.828) Sep, Lymphadenitis (ICD-10 - I88.9) Apply warm compresses to affected area for 20 minutes x4 times per day for next week. Follow up with your family doctor in 5-7 days if symptoms do not improve. Sep, Other Additional time spent conducting pre-visit phone call, screening for symptoms, instructions on social distancing, application and removal of PPE, and cleaning of examination room, equipment and supplies was preformed. Patient education given for testing methodology and results. Patient care instructions given in writting by [facility] document. [facility] Other Evaluation note* Diagnosis Cervical dystonia- Primary Spasmodic torticollis [facility]* Diagnosis Anxiety- Primary Anxiety state, unspecified Essential tremor Essential and other specified forms of tremor S/P deep brain stimulator placement Other postprocedural status documented in this encounter [facility] noteNo InformationNort [employer] Other Evaluation note* Diagnosis Cervical dystonia- Primary Spasmodic torticollis documented in this encounter [facility] note* Diagnosis Essential tremor- Primary Essential and other specified forms of tremor S/P deep brain stimulator placement Other postprocedural status Anxiety Anxiety state, unspecified [facility]* Diagnosis APPOINTMENT CANCELLED- Primary [facility] in this [facility]* Diagnosis Essential tremor- Primary Essential and other specified forms of tremor S/P deep brain stimulator placement Other postprocedural status Anxiety Anxiety state, unspecified documented in this encounter [facility] note* Diagnosis Anxiety Anxiety state, unspecified [facility]* Diagnosis Essential tremor- Primary Essential and other specified forms of tremor Anxiety Anxiety state, unspecified S/P deep brain stimulator placement Other postprocedural status documented in this encounter [facility] note* Diagnosis Arthritis Unspecified arthropathy, site unspecified Vitamin D [facility] Essential tremor- Primary Essential and other specified forms of tremor S/P deep brain stimulator placement Other postprocedural status Anxiety Anxiety state, unspecified Abnormality of gait Cognitive impairment Unspecified persistent mental disorders due to conditions classified elsewhere Vitamin D deficiency Unspecified vitamin D deficiency documented in this encounter [facility] note* Diagnosis Essential tremor- Primary Essential and other specified forms of tremor S/P deep brain stimulator placement Other postprocedural status documented in this encounter [facility] general Narrative - Reported* Type Description Date Medical History tremors Medical History Atrial fibrillation Surgical History DBS - Deep brain stimulator 201 0 Surgical History R knee replacement Surgical History L elbow - pinched nerve Surgical History cardiac ablation Hospitalization History see above [facility] Other History general Narrative - Reported* Type Description Date Medical History tremors Medical History Atrial fibrillation Medical History GERD Surgical History DBS - Deep brain stimulator 201 0 Surgical History R knee replacement Surgical History L elbow - pinched nerve Surgical History cardiac ablation Hospitalization History see above [facility] Other InstructionsNot on filedocumented in this encounter [facility] Purpose Family History No Family History Records FoundNo Family History Records FoundNo Family History Records FoundNo Family History Records FoundNo Family History Records FoundNo Family History Records FoundNo Family History Records Found Advance Directives No Advanced Directives Records FoundDocuments on File Type Date Recorded 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 Advance Directive(s) 11/29/2021 2:19 PM Advance Directive(s) 12/06/2017 1:47 PM Medications Administered Section Inactive Administered Medications - up to 3 most recent administrations Medication Order MAR Action Action Date Dose Rate Site botulinum toxin type b 5,000 Units injection (MYOBLOC) 5,000 Units, INTRAMUSCULAR, ONCE, 1 dose, On Sun05/02/22 at 1130, REFRIGERATE - Pharmaceutical Waste: Lab Pack - Given 05/02/2022 11:51 AM EDT 5,000 Units Other Inactive Administered Medications - up to 3 most recent administrations Medication Order MAR Action Action Date Dose Rate Site botulinum toxin type b 2,500 Units injection (MYOBLOC) 2,500 Units, INTRAMUSCULAR, ONCE, 1 dose, On Luanne 08/10/22 at 1100, REFRIGERATE - Pharmaceutical Waste: Lab Pack - Given 08/10/2022 12:22 PM EDT 2,500 Units Other botulinum toxin type b 5,000 Units injection (MYOBLOC) 5,000 Units, INTRAMUSCULAR, ONCE, 1 dose, On Sun08/10/22 at 1100, REFRIGERATE - Pharmaceutical Waste: Lab Pack - Given 08/10/2022 12:22 PM EDT 5,000 Units Other Reason for Referral Specialty Diagnoses / Procedures Referred By Ofelia t Referred To Contact Diagnoses Essential tremor S/P deep brain stimulator placement Procedures PROVIDER ORDERED FOLLOW UP OFFICE/OUTPATIENT NEW HIGH MDM 60 MINUTES Mila Andino APRN.LABORER [employer] [address] [address] Referral ID Status Reason Start Date Expiration Date Visits Requested Visits Authorized [id number] Authorized PCP Requested Referral 02/03/2025 04/22/2025 1 1 Specialty Diagnoses / Procedures Referred By Contofe t Referred To Contact [facility] Diagnoses Essential tremor Abnormality of gait Procedures CONSULT TO PHYSICAL THERAPY PHYSICAL THERAPY EVALUATION HIGH COMPLEX 45 MINS Mila Andino, TILE FITTER.LABORER [employer] [address] [address] [facility] [address] [place] [address] Referral ID Status Reason Start Date Expiration Date Visits Requested Visits Authorized [id number] Authorized PCP Requested Referral Auto-Generate d Referral 03/04/2024 03/04/2025 99 99 Additional Source Comments (unrecognized sect ion and content) No Status Records FoundNo Status Records FoundNo Status Records FoundNo Status Records FoundNo Status Records FoundNo Status Records FoundNo Status Records Found INFORMATION SOURCE (unrecogn ized section and content) DATE CREATED AUTHOR 05/01/2018 [facility] DATE CREATED AUTHOR AUTHOR'S ORGANIZ ATION 09/22/2018 [facility] DATE CREATED AUTHOR AUTHOR'S ORGANIZ ATION 07/03/2019 [facility] DATE CREATED AUTHOR AUTHOR'S ORGANIZ ATION 06/14/2020 [facility] DATE CREATED AUTHOR AUTHOR'S ORGANIZ ATION 2022 [facility] DATE CREATED AUTHOR AUTHOR'S ORGANIZ ATION 04/24/[address] [facility] DATE CREATED AUTHOR AUTHOR'S ORGANIZ ATION 05/09/2024 [facility] EPIC Source Comments (unrecognize d section and content) In the event this informatio n is protected by the Federal Confidentiality of Alcohol and Drug Abuse Patient Records regulations: The Federal rules restrict any use of the information to criminally investigate or prosecute any alcohol or drug abuse patient.[facility] the event this information is protected by the Federal Confidentiality of Alcohol and Drug Abuse Patient Records regulations: The Federal rules restrict any use of the information to criminally investigate or prosecute any alcohol or drug abuse patient.[facility]bleIn the event this information is protected by the Federal Confidentiality of Alcohol and Drug Abuse Patient Records regulations: The Federal rules restrict any use of the information to criminally investigate or prosecute any alcohol or drug abuse patient.[facility]bleIn the event this information is protected by the Federal Confidentiality of Alcohol and Drug Abuse Patient Records regulations: The Federal rules restrict any use of the information to criminally investigate or prosecute any alcohol or drug abuse patient.[facility]bleIn the event this information is protected by the Federal Confidentiality of Alcohol and Drug Abuse Patient Records regulations: The Federal rules restrict any use of the information to criminally investigate or prosecute any alcohol or drug abuse patient.[facility]bleIn the event this information is protected by the Federal Confidentiality of Alcohol and Drug Abuse Patient Records regulations: The Federal rules restrict any use of the information to criminally investigate or prosecute any alcohol or drug abuse patient.[facility]bleIn the event this information is protected by the Federal Confidentiality of Alcohol and Drug Abuse Patient Records regulations: The Federal rules restrict any use of the information to criminally investigate or prosecute any alcohol or drug abuse patient.[facility]bleIn the event this information is protected by the Federal Confidentiality of Alcohol and Drug Abuse Patient Records regulations: The Federal rules restrict any use of the information to criminally investigate or prosecute any alcohol or drug abuse patient.[facility]bleIn the event this information is protected by the Federal Confidentiality of Alcohol and Drug Abuse Patient Records regulations: The Federal rules restrict any use of the information to criminally investigate or prosecute any alcohol or drug abuse patient.[facility]bleIn the event this information is protected by the Federal Confidentiality of Alcohol and Drug Abuse Patient Records regulations: The Federal rules restrict any use of the information to criminally investigate or prosecute any alcohol or drug abuse patient.[facility]bleIn the event this information is protected by the Federal Confidentiality of Alcohol and Drug Abuse Patient Records regulations: The Federal rules restrict any use of the information to criminally investigate or prosecute any alcohol or drug abuse patient.[facility]bleIn the event this information is protected by the Federal Confidentiality of Alcohol and Drug Abuse Patient Records regulations: The Federal rules restrict any use of the information to criminally investigate or prosecute any alcohol or drug abuse patient.[facility]bleIn the event this information is protected by the Federal Confidentiality of Alcohol and Drug Abuse Patient Records regulations: The Federal rules restrict any use of the information to criminally investigate or prosecute any alcohol or drug abuse patient.[facility]bleIn the event this information is protected by the Federal Confidentiality of Alcohol and Drug Abuse Patient Records regulations: The Federal rules restrict any use of the information to criminally investigate or prosecute any alcohol or drug abuse patient.[facility] Reason for Visit (unrecogniz ed section and content) Reason Comments Patient Request Reason Comments Neurotoxin Injection Reason Comments Essential tremor Reason Comments Symptom Management Reason Comments Appointment Reason Comments Med Refill Reason Comments Essential tremor Follow Up Reason Comments Results Labs Reason Comments Essential tremor Follow Up Care Teams (unrecognized sec tion and content) [facility] Former Relationship Specialty Start Date End Date Ny Hoyos, DO [address] [place] [address] PCP - General Family Practice 10/06/21 [facility] Former Relationship Specialty Start Date End Date Ny Hoyos, DO [address] [place] [address] PCP - General Family Practice 10/06/21 [facility] Former Relationship Specialty Start Date End Date Ny Hoyos, DO [address] [place] [address] PCP - General Family Practice 10/06/21 [facility] Former Relationship Specialty Start Date End Date Ny Hoyos, DO [address] [place] [address] PCP - General Family Medicine 10/06/21 [facility] Former Relationship Specialty Start Date End Date Ny Hoyos, DO [address] [place] [address] PCP - General Family Medicine 10/06/21 [facility] Former Relationship Specialty Start Date End Date Ny Hoyos, DO [address] [place] [address] PCP - General Family Medicine 10/06/21 [facility] Former Relationship Specialty Start Date End Date Ny Hoyos, DO [address] [place] [address] PCP - General Family Medicine 10/06/21 [facility] Former Relationship Specialty Start Date End Date Ny Hoyos [facility] [address] [facility] [place] [place] [address] PCP - General Family Medicine 10/06/21 [facility] Former Relationship Specialty Start Date End Date Ny Hoyos DO [address] [facility] [facility] [place] [place] [address] PCP - General Family Medicine 10/06/21 [facility] Former Relationship Specialty Start Date End Date Ny Hoyos DO [address] [place] [address] PCP - General Family Medicine 10/06/21 [facility] Former Relationship Specialty Start Date End Date Jun Carrasco MD [address] [place] [address] [place] [address] PCP - General Internal Medicine 03/23/23 [facility] Nurse [facility] 06/14/23 [facility] Former Relationship Specialty Start Date End Date Ny Hoyos DO [address] [place] [address] PCP - General Family Medicine 10/06/21 [facility] Former Relationship Specialty Start Date End Date Ny Hoyos DO [address] [place] [address] PCP - General Family Medicine 10/06/21 [facility] Former Relationship Specialty Start Date End Date Ny Hoyos DO [address] [facility] [place] [address] PCP - General Family Medicine 10/06/21 [facility] Former Relationship Specialty Start Date End Date Marine Hoyoslin DO Trang [address] [facility] [place] [address] PCP - General Family Medicine 10/06/21 FOR RECORDS PERTAINING TO PATIENTS WHO ARE OR HAVE BEEN ENROLLED IN A CHEMICAL DEPENDENCY/SUBSTANCEABUSE PROGRAM, SOME INFORMATION MAY BE OMITTED. This clinical summary was aggregated from multiple sources. Caution should be exercised in using it in the provision of clinical care. This summary normalizes information from multiple sources, and as a consequence, information in this document may materially change the coding, format and clinical context of patient data. In addition, data may be omitted in some cases. CLINICAL DECISIONS SHOULD BE BASED ON THE PRIMARY CLINICAL RECORDS. [facility]. provides no warranty or guarantee of the accuracy or completeness of information in this document.
[2024-05-12 10:09] LABS: Prostate Specific Antigen Dx 2.69 ng/mL (<=4.00)
[2024-05-13 06:08] LABS: HCV Antibody Non Reactive (Non Reactive)
== END 2024-05-12 08:34 | disposition home or self-care (01) ==
LOC: LAB 08:33
PROVIDERS: PCP Family Medicine; Visit Provider Family Medicine
DX: Z00.00 Encounter for general adult medical examination without abnormal findings (principal); R35.1 Nocturia; Z13.21 Encounter for screening for nutritional disorder; Z11.59 Encounter for screening for other viral diseases
CPT/HCPCS: 36415; 82306; 84153; 86803

== ENCOUNTER 2024-06-07 15:11 | Emergency (ER) | payer MEDICARE, SELFPAY ==
[2024-06-07] VITALS (38 sets, daily range): BP systolic 92–140; BP diastolic 70–89; PULSE 62–100; TEMP 36.8; O2SAT 93–98; BMI 27.0
--- NOTE | 2024-06-07 15:14 | ECG_ITS ---
The [facility] Test Date: 2024-06-07 Pat Name: YORDAN KELLY Department: Room: - Gender: Male [place] [employer]ter: : 1945 Requested By: [id number] Order Number: [id number] Reading MD: SAMINA HARDEN Measurements Intervals [place] Rate: 90 P: 90 RI: 162 QRS: 42 QRSD: 88 T: 48 QT: 356 QTc: 403 Interpretive Statements 1100 Sinus rhythm 9110 normal ECG No previous ECG available for comparison Electronically Signed On 06-08-2024 18:26:38 EDT by SAMINA HARDEN
--- NOTE | 2024-06-07 15:14 | ED_ITS ---
Documented by User: Iain Real MD 06/07/24 15:18 HPI - Chest Pain General Chief Complaint: Chest Pain Stated Complaint: chest pain Time Seen by Provider: 06/07/24 15:14 History of Present Illness HPI narrative: 78-year-old male presents for chest pain. It started 1 hour ago when he was at home. There was no injury and he has not had a fever or cough. He feels a little bit short of breath. It is a sharp pain at the bottom part of the sternum. He does not complain to me of any back pain. Related Data Allergies Allergy/AdvReac Type Severity Reaction Status Date / Time Penicillins AdvReac Severe Hives Verified 06/07/24 15:19 Review of Systems ROS Narrative A ten point review of systems is negative except as noted above. Exam Narrative Exam Narrative: Nurses note and vital signs reviewed and patient is not hypoxic. General: The patient appears well and in no apparent respiratory distress. Patient is resting comfortably on cart. Skin: Warm, dry, no pallor noted. There is no rash noted. Head: Normocephalic, atraumatic Eye: Normal conjunctiva, no drainage Ears, Nose, Mouth, and Throat: oral mucosa is moist. Nares patent. Cardiovascular: Regular Rate and Rhythm Respiratory: Patient is in no distress, no accessory muscle use, lungs are clear to auscultation, no wheezing, rales or rhonchi Back: non-tender GI: Soft and nontender Musculoskeletal: The patient has no evidence of calf tenderness, no pitting edema, symmetrical pulses noted bilaterally Neurological: Awake and alert and oriented, he has chronic tremors Psychiatric: Cooperative Constitutional Vital Signs, click to edit/add: Last Vital Signs Temp 98.3 F 06/07/24 15:13 Pulse 71 06/07/24 19:20 Resp 20 06/07/24 15:13 BP 134/87 06/07/24 19:16 Pulse Ox 96 06/07/24 19:20 O2 Del Method Room Air 06/07/24 15:13 Course Vital Signs Vital signs: Vital Signs Temperature 98.3 F 06/07/24 15:13 Pulse Rate 100 H 06/07/24 15:13 Respiratory Rate 20 06/07/24 15:13 Blood Pressure 136/89 06/07/24 15:13 Pulse Oximetry 98 06/07/24 15:13 Oxygen Delivery Method Room Air 06/07/24 15:13 Temperature 98.3 F 06/07/24 15:13 Pulse Rate 71 06/07/24 19:20 Respiratory Rate 20 06/07/24 15:13 Blood Pressure 134/87 06/07/24 19:16 Pulse Oximetry 96 06/07/24 19:20 Oxygen Delivery Method Room Air 06/07/24 15:13 MDM - Chest Pain Lab Data Labs: Lab Results 06/07/24 06/07/24 Range/Units 15:21 18:30 WBC 8.6 (4.0-11.0) 10^3/uL RBC 4.82 (4.70-6.10) 10^6/uL Hgb 15.5 (14.0-18.0) g/dL Hct 46.2 (42.0-54.0) % MCV 95.9 H (80.0-94.0) fL MCH 32.2 (25.9-34.0) pg MCHC 33.5 (29.9-35.2) g/dL RDW 13.5 (11.0-15.0) % Plt Count 321 (150-450) 10^3/uL MPV 9.9 (9.5-13.5) fL Neut % (Auto) 70.6 (43.0-75.0) % Lymph % (Auto) 18.8 L (20.5-60.0) % [place] % (Auto) 7.8 (1.7-12.0) % Eos % (Auto) 1.7 (0.9-7.0) % Baso % (Auto) 0.9 (0.2-2.0) % Neut # (Auto) 6.1 (1.4-6.5) 10^3/uL Lymph # (Auto) 1.6 (1.2-3.8) 10^3/uL [place] # (Auto) 0.7 (0.3-0.8) 10^3/uL Eos # (Auto) 0.2 (0.0-0.7) 10^3/uL Baso # (Auto) 0.1 (0.0-0.1) 10^3/uL Abs Immat Gran (auto) 0.02 (0.00-0.03) 10^3/uL Imm/Tot Granulo (auto) 0.2 (0.0-0.5) % D-Dimer 0.66 H* (<=0.59) mg/L FEU Sodium 140 (136-145) mmol/L Potassium 4.2 (3.5-5.1) mmol/L Chloride 107 (98-107) mmol/L Carbon Dioxide 22.7 (21.0-32.0) mmol/L Anion Gap 14.5 BUN 21.0 H (7.0-18.0) mg/dL Creatinine 1.01 (0.70-1.30) mg/dL Est GFR ( Amer) >60 (>=60) Est GFR (Non-Af Amer) >60 (>=60) BUN/Creatinine Ratio 20.8 Glucose 104 (74-106) mg/dL Calcium 8.3 L (8.5-10.1) mg/dL Troponin I High Sens 4.9 5.5 (4.0-76.1) pg/mL ECG Data Attestation: I personally reviewed and interpreted this ECG as follows: (EKG on my interpretation shows sinus rhythm without acute change and rate of 90.) Discharge Plan Discharge Stand Alone Forms: Portal Instructions Chief Complaint: Chest Pain Clinical Impression: Chest pain Patient Disposition: Home, Self-Care Print Language: Syriac Instructions: Chest Pain (ED) Additional Instructions: follow up with your doctor in the next couple of days for recheck. return if pain recurs Referrals: RASHEED LUCAS [Primary Care Provider] - 1 week Documented by User: Shiv Agrawal MD 06/07/24 19:25 HPI - Chest Pain General Chief Complaint: Chest Pain Stated Complaint: chest pain Time Seen by Provider: 06/07/24 15:14 Related Data Allergies Allergy/AdvReac Type Severity Reaction Status Date / Time Penicillins AdvReac Severe Hives Verified 06/07/24 15:19 Exam Constitutional Vital Signs, click to edit/add: Last Vital Signs Temp 98.3 F 06/07/24 15:13 Pulse 71 06/07/24 19:20 Resp 20 06/07/24 15:13 BP 134/87 06/07/24 19:16 Pulse Ox 96 06/07/24 19:20 O2 Del Method Room Air 06/07/24 15:13 Course Vital Signs Vital signs: Vital Signs Temperature 98.3 F 06/07/24 15:13 Pulse Rate 100 H 06/07/24 15:13 Respiratory Rate 20 06/07/24 15:13 Blood Pressure 136/89 06/07/24 15:13 Pulse Oximetry 98 06/07/24 15:13 Oxygen Delivery Method Room Air 06/07/24 15:13 Temperature 98.3 F 06/07/24 15:13 Pulse Rate 71 06/07/24 19:20 Respiratory Rate 20 06/07/24 15:13 Blood Pressure 134/87 06/07/24 19:16 Pulse Oximetry 96 06/07/24 19:20 Oxygen Delivery Method Room Air 06/07/24 15:13 MDM - Chest Pain MDM Narrative Medical decision making narrative: care transferred at change of shift. Patient presented with chest pain. CTA chest neg. Serial troponin neg. Patient informed of the plan to admit for observation but he refuses to stay. States he will follow up with his doctor. Advised to follow up within a couple of days. Advised to return if pain recurs Lab Data Labs: Lab Results 06/07/24 06/07/24 Range/Units 15:21 18:30 WBC 8.6 (4.0-11.0) 10^3/uL RBC 4.82 (4.70-6.10) 10^6/uL Hgb 15.5 (14.0-18.0) g/dL Hct 46.2 (42.0-54.0) % MCV 95.9 H (80.0-94.0) fL MCH 32.2 (25.9-34.0) pg MCHC 33.5 (29.9-35.2) g/dL RDW 13.5 (11.0-15.0) % Plt Count 321 (150-450) 10^3/uL MPV 9.9 (9.5-13.5) fL Neut % (Auto) 70.6 (43.0-75.0) % Lymph % (Auto) 18.8 L (20.5-60.0) % [place] % (Auto) 7.8 (1.7-12.0) % Eos % (Auto) 1.7 (0.9-7.0) % Baso % (Auto) 0.9 (0.2-2.0) % Neut # (Auto) 6.1 (1.4-6.5) 10^3/uL Lymph # (Auto) 1.6 (1.2-3.8) 10^3/uL [place] # (Auto) 0.7 (0.3-0.8) 10^3/uL Eos # (Auto) 0.2 (0.0-0.7) 10^3/uL Baso # (Auto) 0.1 (0.0-0.1) 10^3/uL Abs Immat Gran (auto) 0.02 (0.00-0.03) 10^3/uL Imm/Tot Granulo (auto) 0.2 (0.0-0.5) % D-Dimer 0.66 H* (<=0.59) mg/L FEU Sodium 140 (136-145) mmol/L Potassium 4.2 (3.5-5.1) mmol/L Chloride 107 (98-107) mmol/L Carbon Dioxide 22.7 (21.0-32.0) mmol/L Anion Gap 14.5 BUN 21.0 H (7.0-18.0) mg/dL Creatinine 1.01 (0.70-1.30) mg/dL Est GFR ( Amer) >60 (>=60) Est GFR (Non-Af Amer) >60 (>=60) BUN/Creatinine Ratio 20.8 Glucose 104 (74-106) mg/dL Calcium 8.3 L (8.5-10.1) mg/dL Troponin I High Sens 4.9 5.5 (4.0-76.1) pg/mL Discharge Plan Discharge Stand Alone Forms: Portal Instructions Chief Complaint: Chest Pain Clinical Impression: Chest pain Patient Disposition: Home, Self-Care Print Language: Syriac Instructions: Chest Pain (ED) Additional Instructions: follow up with your doctor in the next couple of days for recheck. return if pain recurs Referrals: RASHEED LUCAS [Primary Care Provider] - 1 week
--- NOTE | 2024-06-07 15:14 | XR_ITS ---
The [address] [address] Patient Name: YORDAN KELLY MRN: [id number] date: 1945 Sex: M Assigned Patient Location: ED.MAIN Current Patient Location: ER Accession/Order Number: [id number] Exam Date: 06/07/2024 15:32 Report Date: 06/07/2024 16:35 At the request of: JACQUELINE BETTS Procedure: XR chest 1V EXAMINATION: XR chest 1V HISTORY: Chest pain COMPARISON: No relevant comparison available. FINDINGS: LUNGS: Underexpanded lungs with mild opacities obscuring the lingula. VASCULATURE: No increased pulmonary vasculature. PLEURA: No pneumothorax, effusion, or pleural thickening. CARDIAC: No cardiomegaly or cardiac silhouette abnormality. MEDIASTINUM: No visible mass or adenopathy. BONES: No fracture or visible bone lesion. OTHER: Neurostimulator pack projecting over upper right chest. XR/XR chest 1V IMPRESSION: 1. Mild lingular infiltrates versus prominent pericardial fat pad. Electronically authenticated by: SHIVAM JOHN Date: 06/07/2024 16:35
--- OUTSIDE RECORDS SUMMARY | 2024-06-07 15:21 | XMS_ITS | CCD ---
Author Organization [facility] Care Team Providers Care Sql Developer Dba Name Role Phone LUAN DUMONT Unavailable Unavailable LUAN DUMONT Unavailable Unavailable LUAN DUMONT Unavailable Unavailable SHIVAM JOHN Unavailable Unavailable LUAN DUMONT Unavailable Unavailable MARIO, RIGO Unavailable Unavailable MARIO, RIGO Unavailable Unavailable NO FAMILY DOCTOR, NO FAMILY DOCTOR Unavailable Unavailable Ny Hoyos DO Primary Care Provider [phone] Young Dean Unavailable Ny Hoyos Unavailable Ny Hoyos DO Primary Care Provider [phone] Ny Hoyos DO Primary Care Provider [phone] Shayla Mirza Attending Unavailable Shayla Mirza Primary Care Unavailable Shayla Mirza Admitting Unavailable Kyler Wood Attending Unavailab Ny Galaviz Primary Care Unavailable Renuka iRver Consulting Unavailable Al Rogelio Raphael Admitting Unavailab Tiffany Brunson Consulting Unavailable Brittany Vanessa Consulting Unavailable Shivam Taylor Consulting Unavailable Armando Torres Consulting UnavailRomana Cisse Consulting Unavailable Yaya Perez Consulting Unavailable Renuka River Consulting Unavailable Karen Tavares Consulting Unavailable Tyler Ulrich Unavailable Krystina Goff Unavailable Jun Carrasco MD Primary Care Provider Ny Hoyos DO Primary Care Provider MILA ANDINO Attending Unavailable NY HOYOS Primary Care Unavailable NY HOYOS E Primary Care Unavailable MILA ANDINO Attending Unavailable NY HOYOS Primary Care Unavailable MILA ANDINO Attending Unavailable PERLA CRUZ Attending Unavailable RASHEED LUCAS Attending Unavailable CHRISTINA HALE Attending Unavailable LAWSON YOUSIF Attending Unavailable UNALLOCATED, NOMS PROVIDER Referring Unava ilable RASHEED LUCAS Attending Unavailable LUPIS SPAIN Attending Unavailable UNALLOCATED, NOMS PROVIDER Referring Unava ilable ELIEZER DOUGLASS Attending Unavailable UNALLOCATED, NOMS PROVIDER Referring Unava ilable CHRISTINA HALE Attending Unavailable LUPIS SPAIN Attending Unavailable MILA ANDINO Referring Unavailable ELIEZER DOUGLASS Attending Unavailable MILA ANDINO Referring Unavailable ELIEZER DOUGLASS Attending Unavailable MILA ANDINO Referring Unavailable ROSHAN HERNANDEZ Attending Unavailable MILA ANDINO Referring Unavailable Allergies Allergy Classification Reported Allergen(s) Allergy Type Date of Onset Reaction(s) Facility Penicillins (antibiotic) (1 source) Penicillins; Translations: [PENICILLINS] Drug Allergy 4 [facility] Repository (1 source) Penicillins Drug allergy (disorder) 4 [facility] Repository (1 source) Penicillins Drug Allergy 4 [facility] (15 sources) Seasonal allergy; Translations: [SEASONAL ALLERGIES] Allergy to substance 0 Unknown [facility] Work Phone: (9 sources) Penicillin V Drug Allergy Unknown [employer] Other (14 sources) Penicillins Drug Allergy 4 [facility] (11 sources) Bee Sting; Translations: [BEE STING] Allergy to substance 1 Rash [facility] Work Phone: (1 source) Penicillins Drug allergy (disorder) 8 [facility] Repository Medications Current Medications Medication Drug [...] a day for 30 day(s) Oct, Active X2-xyawf-V10-coffee- phosphatid (NEURIVA PLUS BRAIN PERFORMANCE) 1.7 mg-400 mcg- 2.4 mcg cap (4 sources) Start: 03-04-2024 take 1 capsule by mouth once daily X8-htavy-Q48-coff ee-phosphatid (NEURIVA PLUS BRAIN PERFORMANCE) 1.7 mg-400 [...] on above: Take 1 tablet by mely th three times daily. Take 2 tablets in th e morning and evening and 1 tablet in the afternoon Take 2 tablets by mo [facility] two times a day. calcium carbonate 1250 mg / cholecalciferol 200 unt oral tablet (2 sources) Vitamin D Start: 09-11-20 23 take 1 tablet by mouth once calcium-carbonate- [...] 0 04/22/2024 Discontinued take 1 capsule by [facility] twice daily celecoxib (CELEBREX) 200 mg capsule [...] on above: Take 1 capsule by mo [facility] every morning. docusate sodium 100 mg oral capsule (14 sources) Start: 03-11-20 15 take 1 capsule by mouth every twelve hours as needed docusate sodium (COLACE) 100 mg capsule Take 1 capsule by mouth twice daily as needed for Constipation. 60 capsule 0 03/11/2015 Active Comment on above: Take 1 capsule by [facility] twice daily as needed for Constipation. fluticasone [...] (FLONASE) 50 mcg/actuation nasal spray Use 1 [place] in each nostril once daily. 0 Active take 1 spray(s) nasal route once daily Flonase 50 MCG/ACT 1 spray in each nostril Nasally Once a day for 30 day(s) Active Comment on above: Use 1 [place] in each nostril once daily. Neuriva - [...] Active Start: 10-18-2021 take 2 tablets by [facility] every twenty-four hours predniSONE 20 MG 2 [...] q 24 HR. Take 1 tablet by meyl th q 24 HR. 0.5 tablets once [...] Start: 10-18-2021 take 1 capsule by mo [facility] every twenty-four hours ZyrTEC Allergy [...] Comment on above: [facility]. 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 / Z79.82(ICD-9) Onset: [...] Test Name Value Interpretation Reference Range Facility [facility] 04-22-2024 CNOV Office Visit (NRMDN) ---- YORDAN MARROQUIN ([id number]) 1945 M Date Time Provider Department 04/22/24 2:30 PM [facility] During your visit today, we recorded the following information about you: Pulse Blood pressure Weight Height 60/minute 116/57 97.5 kg 1.88 m Mila Andino APRN.WORKCELL OPERATOR 04/22/2024 6:48 PM Signed [facility] - FOLLOW UP EVALUATION Ny Hoyos DO [address] [place] [address] Dear Ny Hoyos DO: I had the [...] Allergies Unknown Current Outpatient Medications Medication Sig abedbkn-tkdqjhami-l itamin D3 500 mg-5 mcg (200 unit) per tablet Take 1 tablet by mouth. V2-rgmqf-Y08-coffee -phosphatid (NEURIVA PLUS BRAIN PERFORMANCE) 1.7 mg-400 [...] (FLONASE) 50 mcg/actuation nasal spray Use 1 [place] in each nostril once daily. docusate sodium [...] Weight: 97.5 (more content not included)... Normal [facility] CNCOon 04-09-2024 CNCO Letter Text Normal [facility] shaneka Turner CNPNon 04-09-2024 CNPN Telephone (NRMDN) ---- YORDAN MARROQUIN ([id number]) 1945 M Date Time Provider Department 04/09/24 [...] Date Reviewed: 03/04/2024 Reviewed by: Mila Andino APRN.WORKCELL OPERATOR - Fully Assessed Reason for Visit: Appointment [186] Prescriptions as of 04/09/2024 - K8-vyjci-T15-coffee -phosphatid (NEURIVA PLUS BRAIN PERFORMANCE) 1.7 mg-400 [...] (FLONASE) 50 mcg/actuation nasal spray Use 1 [place] in each nostril once daily. - docusate [...] Encounter Status:Closed by ESTRELLA CABALLERO on 04/09/24 [facility] 03-05-2024 CNPN Telephone (NREUS2) ---- YORDAN MARROQUIN ([id number]) 1945 M Date Time Provider Department 03/05/24 MILA ANDINO NREUS2 During your visit today, we recorded the following information about you: Darlin Santiago 03/05/2024 10:04 AM Signed Pt's called to report that he had labs done yesterday at outside facility. Looks like they are available in CareEverywhere. Mila Andino APRN.WORKCELL OPERATOR 03/05/2024 4:47 PM Signed I reviewed the [...] provider given PCP is Dr. Lucas on [address] in [employer] Phone number [phone] Fax number [phone] Labs faxed with confirmation of transmission received Allergies As of Date: 03/05/2024 Noted Allergy Reaction BEE STING 11/01/2021 2 - Rash PENICILLINS 03/16/2014 4 - Hives SEASONAL ALLERGIES 04/29/2020 16 - Unknown Date Reviewed: 03/04/2024 Reviewed by: Mila Andino APRN.LAURIE - Fully Assessed Reason for Visit: Results [95] Cmt: Labs Prescriptions as of 03/06/2024 - V0-lngwn-E29-coffee -phosphatid (NEURIVA PLUS BRAIN PERFORMANCE) 1.7 mg-400 [...] (FLONASE) 50 mcg/actuation nasal spray Use 1 [place] in each nostril once daily. - docusate [...] Encounter Status:Closed by MILA ANDINO on 03/05/24 [facility] CNOVon 03-04-2024 CNOV Office Visit (NRMDN) ---- YORDAN MARROQUIN ([id number]) 1945 M Date Time Provider Department 03/04/24 1:30 PM MILA ANDINO NRTXN During your visit today, we recorded the following information about you: Pulse Blood pressure Weight Height 62/minute 113/65 98.3 kg 1.88 m Mila Andino APRN.WORKCELL OPERATOR 03/05/2024 12:54 PM Signed [facility] - FOLLOW UP EVALUATION Ny Hoyos DO [address] [facility] [place] [address] Dear Ny Hoyos DO: I had the [...] (FLONASE) 50 mcg/actuation nasal spray Use 1 [place] in each nostril once daily. docusate sodium (COLACE) 100 mg capsule Take 1 capsule by mouth twice daily as needed for Constipation. D2-hhjqp-K80-coffee -phosphatid (NEURIVA PLUS BRAIN PERFORMANCE) 1.7 mg-400 [...] is false) 1 MoCA Total Score 21 Kojj-Kmnsii-Mlmub Tremor Scale Voice Tremor Action and Intention: [...] No acute (more content not included)... Normal [facility] CNOVon 09-04-2023 CNOV Office Visit (NRMDN) ---- YORDAN MARROQUIN ([id number]) 1945 M Date Time Provider Department 09/04/23 11:00 AM MILA ANDINO NRMDN During your visit today, we recorded the following information about you: Pulse Blood pressure Weight Height 63/minute 129/69 95.1 kg 1.88 m Mila Andino APRN.CNP 09/04/2023 11:18 AM Signed [facility] - FOLLOW UP EVALUATION Ny Hoyos DO [address] [place] [address] Dear Ny Hoyos DO: I had the [...] this with the following steps: -Push the [place] check button and then hold the object oriented programmer up to your battery. -Using the navigator pad at the bottom of your object oriented programmer, push the down arrow to put [...] settings you came in on). -Push the [place] check button and then hold the object oriented programmer up to your battery. You should [...] (FLONASE) 50 mcg/actuation nasal spray Use 1 [place] in each nostril once daily. docusate sodium [...] is 26.91 kg/m?. Movement Disorders Scales Performed: Npio-Hisgru-Yhhuv Tremor Scale Face Tremor At Rest: 2 [...] Studies 6/ (more content not included)... Normal [facility] COVID + FLU Quick Testingon 10-17-2022 SARS-CoV-2 (COVID-19) RNA LARISSA+probe Ql (Unsp spec) Positive [employer] Other COVID + FLU Quick Testing Negative [employer] Other [facility] echo transthoracicon [facility] echo transthoracic [facility] [place] [address] Echocardiogram Signed Patient: Yordan Marroquin SR MR#: [id number] : 1945 Acct:[id number] Age/Sex: 76 / M ADM Date: 03/11/22 Loc: Room: [address] [place] [address] Type: DIS INOo Attending Dr: Kyler Wood MD Ordering Provider: Zaki Cali DO Date of Service: 03/13/22/ [facility] echo transthoracic: CVA Copies to: DO Juanjose [...] By: Juanjose Limon MD 03/13/22 1543 Normal [facility] Lipid Panelon 03-13-2022 Cholesterol [Mass/Vol] 222 mg/dL High 140-200 [facility] Comment on above: Result Comment: Chol less than 200 mg/dl low risk Chol 201-239 mg/dl borderline risk Chol 240 mg/dl and greater high risk Performed By: #### L IPID #### [facility] [address] [place] [id number] [place] Cholesterol in HDL [Mass/Vol] 41 mg/dL Normal 29-71 [facility] Comment on above: Result Comment: HDL CHOL ATP-III CLASSIFICATION Cardiovascular Risk HDL > or equal to 60 mg/dL LOW HDL < 40 mg/dL HIGH Performed By: #### L IPID #### [facility] [address] [place] [address] [place] Cholesterol.total/C holesterol in HDL [Mass ratio] 5.4 {ratio} Normal <5.0 [facility] Comment on above: Result Comment: PERF ORMED BY: [place] [address] PATHOLOGIST MANAGER ONLINE LUIS FELIPE STARK M.D. Performed By: #### L IPID #### [address] LDL Cholesterol,Calcula nandini 164 mg/dL High 0-100 [facility] Comment on above: Result Comment: LDL ATP III CLASSIFICATION LDL less than 100 mg/dL Optimal LDL 100-129 mg/dL Near or above optimal LDL 130-159 mg/dL Borderline high LDL 160-189 mg/dL High LDL greater than 189 mg/dL Very high Performed By: #### L IPID #### [address] Triglyceride w/Reflex 85 mg/dL Normal 35-149 [facility] Comment on above: Result Comment: TRIG ATP III CLASSIFICATION TRIG less than 150 mg/dL Normal TRIG 150-199 mg/dL Borderline high TRIG 200-500 mg/dL High TRIG greater than 500 mg/dL Very high Standard traceable to the Center for Disease Conrtrol and Prevention (CDC) test method. Performed By: #### L IPID #### [address] VLDL CHOLESTEROL 17 mg/dL Normal [facility] Comment on above: Performed By: #### L IPID #### [address] Basic Metabolic Panelon 05-0 Calcium [Mass/Vol] 8.5 mg/dL Normal 8.2-10.2 [facility] Comment on above: Performed By: #### B 12, T4F, TSH3, A1C WTH eA #### [place] [address] [place] Chloride [Moles/Vol] 105 mmol/L Normal 95-114 [facility] Comment on above: Performed By: #### B 12, T4F, TSH3, A1C WTH eA #### [place] [address] [place] CO2 [Moles/Vol] 24.2 mmol/L Normal 22.0-30.0 [facility] Comment on above: Performed By: #### B 12, T4F, TSH3, A1C WTH eA #### [facility] [address] [place] [id number] [facility] Creatinine [Mass/Vol] 0.68 mg/dL Normal 0.64-1.27 [facility] Comment on above: Performed By: #### B 12, T4F, TSH3, A1C WTH eA #### [facility] [address] [place] [address] [place] Creatinine Clr Calc Pharmacy 95.36 [facility] Comment on above: Performed By: #### B 12, T4F, TSH3, A1C WTH eA #### [facility] [address] Estimated GFR ( Naz > 60 [facility] Comment on above: Result Comment: GFR estimated reference range: According to KDOQI guidelines, <60 ml/min/1.73m2 is sufficient to diagnose a patient with chronic kidney disease. Performed By: #### B 12, T4F, TSH3, A1C WTH eA #### [facility] [address] [place] [address] [place] Estimated GFR (Non- Am > 60 [facility] Comment on above: Performed By: #### B 12, T4F, TSH3, A1C WTH eA #### [facility] [address] [place] [address] [place] Glucose [Mass/Vol] 93 mg/dL Normal 70-100 [facility] Comment on above: Result Comment: [place] Glucose Reference Range is dependent on time and content of last meal. Glucose of more than 200 mg/dL in a nonstressed, ambulatory subject supports the diagnosis of Diabetes Mellitus. ADA recommended reference range Performed By: #### B 12, T4F, TSH3, A1C WTH eA #### [facility] [address] [place] [id number] [facility] Potassium [Moles/Vol] 3.8 mmol/L Normal 3.5-5.1 [facility] Comment on above: Performed By: #### B 12, T4F, TSH3, A1C WTH eA #### [facility] [address] [id number] [facility] Sodium [Moles/Vol] 137 mmol/L Normal 136-146 [facility] Comment on above: Performed By: #### B 12, T4F, TSH3, A1C WTH eA #### [facility] [address] [place] [id number] [facility] Urea nitrogen [Mass/Vol] 10 mg/dL Normal 9-23 [facility] Comment on above: Performed By: #### B 12, T4F, TSH3, A1C WT eA #### [facility] [address] head stroke alert wo tabithao n 03-12-2022 CT head stroke alert wo con [facility] [place] [address] [place] [address] CT Scan Report Signed Patient: Yordan Marroquin SR MR#: [id number] : 1945 Acct:[id number] Age/Sex: 76 / M ADM Date: 03/11/22 Loc: Room: [address] [place] [address] Type: ADM INOo Attending Dr: Zaki Cali DO Ordering Provider: Willy Topete DO Date of Service: 03/11/22 CT/CT angio neck: left sided weakness ([id number]) CT/CT angio head: left sided weakness ([id number]) CT/CT head stroke alert wo con: left [...] carotid systems or major branches of the [place] of [place]. Impression dictated by: Sam Laurent Jr., D.O.03/12/2022 9:14 AM Dictation Location: [place] [address] Transcribed By: [facility] 03/12/22 0914 Dictated By: Sam Laurent Jr, DO 03/12/22 0859 Signed By: 03/12/22913 [facility] CT head/brain wo conon 03-12 CT head/brain wo con [facility] [address] [place] [id number] CT Scan Report Signed Patient: Yordan Marroquin SR MR#: [id number] : 1945 Acct:[id number] Age/Sex: 76 / M ADM Date: 03/11/22 Loc: Room: [address] [place] [address] Type: ADM INOo Attending Dr: Zaki Cali DO Ordering Provider: Rogelio Kelley MD Date of Service: 03/12/22 CT/CT [...] ABNORMALITY. Impression dictated by: Sam Laurent Jr., D.ONadia03/12/2022 9:18 AM Dictation Location: [place] [address] Transcribed By: [facility] 03/12/22917 Dictated By: Sam Laurent Jr, DO 03/12/2214 Signed By: 03/12/22917 [facility] Complete Blood Count Auto Di ffon 03-12-2022 Basophils (Bld) [#/Vol] 0.1 10*3/uL Normal 0.0-0.2 [facility] Comment on above: Result Comment: PERF ORMED BY: [place] [address] PATHOLOGIST MANAGER ONLINE LUIS FELIPE STARK M.D. Performed By: #### B 12, T4F, TSH3, A1C WTH eA #### [place] [address] [place] Basophils/100 WBC (Bld) 1.2 % Normal . [facility] Comment on above: Performed By: #### B 12, T4F, TSH3, A1C WTH eA #### [place] [address] [place] Eosinophils (Bld) [#/Vol] 0.4 10*3/uL Normal 0.0-0.45 [facility] Comment on above: Performed By: #### B 12, T4F, TSH3, A1C WTH eA #### [place] [address] [place] Eosinophils/100 WBC (Bld) 6.5 % Normal . [facility] Comment on above: Performed By: #### B 12, T4F, TSH3, A1C WTH eA #### [address] Erythrocyte distribution width (RBC) [Ratio] 13.7 % Normal 12.0-14.8 [facility] Comment on above: Performed By: #### B 12, T4F, TSH3, A1C WTH eA #### [place] [address] [place] Hematocrit (Bld) [Volume fraction] 43.2 % Normal 38.8-50.0 [facility] Comment on above: Performed By: #### B 12, T4F, TSH3, A1C WTH eA #### [place] [address] [place] Hemoglobin (Bld) [Mass/Vol] 15.0 g/dL Normal 13.0-17.0 [facility] Comment on above: Performed By: #### B 12, T4F, TSH3, A1C WTH eA #### [address] Lymphocytes (Bld) [#/Vol] 2.2 10*3/uL Normal 1.00-4.8 [facility] Comment on above: Performed By: #### B 12, T4F, TSH3, A1C WTH eA #### [address] Lymphocytes/100 WBC (Bld) 39.5 % Normal . [facility] Comment on above: Performed By: #### B 12, T4F, TSH3, A1C WT eA #### [address] MCH (RBC) [Entitic mass] 32.1 pg Normal 27.5-35.2 [facility] Comment on above: Performed By: #### B 12, T4F, TSH3, A1C WT eA #### [address] MCV (RBC) [Entitic vol] 92.3 fL Normal 83.5-101 [facility] Comment on above: Performed By: #### B 12, T4F, TSH3, A1C WTH eA #### [address] Mean Corpuscular HGB Conc 34.8 g/dL Normal 32.5-35.6 [facility] Comment on above: Performed By: #### B 12, T4F, TSH3, A1C WT eA #### [address] Monocytes (Bld) [#/Vol] 0.5 10*3/uL Normal 0.0-0.8 [facility] Comment on above: Performed By: #### B 12, T4F, TSH3, A1C WTH eA #### [address] Monocytes/100 WBC (Bld) 8.5 % Normal . [facility] Comment on above: Performed By: #### B 12, T4F, TSH3, A1C WT eA #### [facility] [address] [place] [address] [place] Neutrophils (Bld) [#/Vol] 2.5 10*3/uL Normal 1.8-7.7 [facility] Comment on above: Performed By: #### B 12, T4F, TSH3, A1C WTH eA #### [facility] [address] [place] [address] [place] Neutrophils/100 WBC (Bld) 44.3 % Normal . [facility] Comment on above: Performed By: #### B 12, T4F, TSH3, A1C WT eA #### [facility] [address] [place] [address] [place] Nucleated RBC/100 WBC (Bld) [Ratio] 0.0 % Normal 0-0.5 [facility] Comment on above: Performed By: #### B 12, T4F, TSH3, A1C WT eA #### [place] [address] [place] Platelet mean volume (Bld) [Entitic vol] 8.5 fL Normal 6.6-10.1 [facility] Comment on above: Performed By: #### B 12, T4F, TSH3, A1C WT eA #### [place] [address] [place] Platelets (Bld) [#/Vol] 283 10*3/uL Normal 150-450 [facility] Comment on above: Performed By: #### B 12, T4F, TSH3, A1C WT eA #### [place] [address] [place] RBC (Bld) [#/Vol] 4.68 10*6/uL Normal 3.90-5.60 [facility] Comment on above: Performed By: #### B 12, T4F, TSH3, A1C WT eA #### [place] [address] [place] WBC (Bld) [#/Vol] 5.7 10*3/uL Normal 4.5-11.0 [facility] Comment on above: Performed By: #### B 12, T4F, TSH3, A1C [facility] eA #### [facility] [address] [place] [id number] [facility] Magnesiumon 03-12-2022 Magnesium [Mass/Vol] 2.0 mg/dL Normal 1.6-2.6 [facility] Comment on above: Result Comment: PERF ORMED BY: [place] [address] PATHOLOGIST MANAGER ONLINE LUIS FELIPE STARK M.D. Performed By: #### B 12, T4F, TSH3, A1C WT eA #### [facility] [address] [place] [address] Vit. B12/Folate Profileon Cobalamin (Vitamin B12) [Mass/Vol] 422 pg/mL Normal 180-914 [facility] Comment on above: Order Comment: Comme nt Please add to previously drawn labs Performed By: #### V [id number] ####[place] [id number] [facility] Folate > 22.3 Normal >5.9 [facility] Comment on above: Order Comment: Comme nt Please add to previously drawn labs Result Comment: Maritza te reference range: >5.9 ng/ml The WHO technical consultation on folate and vitamin b12 deficiencies has determined that folate concentrations less than 4 ng/ml are considered deficient. PERFORMED BY: [place] [address] PATHOLOGIST MANAGER ONLINE LUIS FELIPE STARK M.D. Performed By: #### V [id number] ####[place] [id number] [facility] XR chest 1V portableon 03-12 XR chest 1V portable [facility] [place] [address] [place] [address] XRay Report Signed Patient: Yordan Marroquin SR MR#: [id number] : 1945 Acct:[id number] Age/Sex: 76 / M ADM Date: 03/11/22 Loc: Room: [address] [place] [address] Type: ADM INOo Attending Dr: Zaki Cali [...] FINDINGS Impression dictated by: Sam Laurent Jr., D.ONadia03/12/2022 10:51 AM Dictation Location: [place] [address] Transcribed By: [facility] 03/12/22 1051 Dictated By: Sam Laurent Jr, DO 03/12/22 1046 Signed By: 03/12/22 1051 Normal [facility] A1C with Estimated Average G luon 03-11-2022 Glucose [Mass/Vol] 120 mg/dL Normal [facility] Comment on above: Result Comment: PERF ORMED BY: [place] [address] PATHOLOGIST MANAGER ONLINE LUIS FELIPE STARK M.D. Performed By: #### B 12, T4F, TSH3, A1C WT eA #### [address] HbA1c (Bld) [Mass fraction] 5.8 % High 4.3-5.6 [facility] Comment on above: Result Comment: Incr eased risk for diabetes: 5.7 - 6.4 diabetes: >6.4 glycemic control for adults with diabetes: <7.0 Performed By: #### B 12, T4F, TSH3, A1C WT eA #### [address] B-Type Natriuretic Peptideon 03-11-2022 Natriuretic peptide B (Bld) [Mass/Vol] 35.0 pg/mL Normal 5-100 [facility] Comment on above: Result Comment: PERF ORMED BY: [facility] [address] [id number] PATHOLOGIST MANAGER ONLINE LUIS FELIPE STARK M.D. Performed By: #### C BC, PT, PTT, CMP, BNP, HS TROP ####[facility] [id number] [place] [address] [facility] COVID-19 Antigenon 2 COVID-19 Antigen Healthcare Worker?: [...] developed and its performance characteristic determined by [employer] and validated at [facility]. This test has not been FDA [...] for SARS Antigen by JENIFER PERFORMED BY: [facility] [address] [place] [address] PATHOLOGIST MANAGER ONLINE LUIS FELIPE STARK M.D. [facility] Comment on above: Performed By: #### C OVID-19 SHEBA, SOFIANEG, COVID 19 [facility] #### [facility] [address] [place] [id number] [facility] [facility] COVID-19 FRMCon 03-11-2022 SARS-CoV-2 (COVID-19) RNA LARISSA+probe Ql (Unsp spec) Negative Normal Negative [facility] Comment on above: Order Comment: Healt hcare Worker?: N Result Comment: Testing for SARS-CoV-2 by RT-PCR This test was developed and its performance characteristics determined by [employer] and validated at the [facility]. This test has not been FDA [...] is terminated or revoked sooner. PERFORMED BY: [facility] [address] [place] [address] PATHOLOGIST MANAGER ONLINE LUIS FELIPE STARK M.D. Performed By: #### C OVID-19 SHEBA, SOFIANEG, COVID 19 [facility] ####[facility] [address] [place] [address] [facility] Complete Blood Count Auto Di ffon 03-11-2022 Basophils (Bld) [#/Vol] 0.1 10*3/uL Normal 0.0-0.2 [facility] Comment on above: Result Comment: PERF ORMED BY: [facility] [address] [place] [id number] PATHOLOGIST MANAGER ONLINE JIANLAN SUN M.D. Performed By: #### C BC, PT, PTT, CMP, BNP, HS TROP ####[address] Basophils/100 WBC (Bld) 1.2 % Normal . [facility] Comment on above: Performed By: #### C BC, PT, PTT, CMP, BNP, HS TROP ####[address] Eosinophils (Bld) [#/Vol] 0.4 10*3/uL Normal 0.0-0.45 [facility] Comment on above: Performed By: #### C BC, PT, PTT, CMP, BNP, HS TROP ####[address] Eosinophils/100 WBC (Bld) 5.5 % Normal . [facility] Comment on above: Performed By: #### C BC, PT, PTT, CMP, BNP, HS TROP ####[address] Erythrocyte distribution width (RBC) [Ratio] 13.9 % Normal 12.0-14.8 [facility] Comment on above: Performed By: #### C BC, PT, PTT, CMP, BNP, HS TROP ####[address] Hematocrit (Bld) [Volume fraction] 45.8 % Normal 38.8-50.0 [facility] Comment on above: Performed By: #### C BC, PT, PTT, CMP, BNP, HS TROP ####[address] Hemoglobin (Bld) [Mass/Vol] 15.6 g/dL Normal 13.0-17.0 [facility] Comment on above: Performed By: #### C BC, PT, PTT, CMP, BNP, HS TROP ####[address] Lymphocytes (Bld) [#/Vol] 2.9 10*3/uL Normal 1.00-4.8 [facility] Comment on above: Performed By: #### C BC, PT, PTT, CMP, BNP, HS TROP ####[address] Lymphocytes/100 WBC (Bld) 44.3 % Normal . [facility] Comment on above: Performed By: #### C BC, PT, PTT, CMP, BNP, HS TROP ####[address] MCH (RBC) [Entitic mass] 31.5 pg Normal 27.5-35.2 [facility] Comment on above: Performed By: #### C BC, PT, PTT, CMP, BNP, HS TROP ####[address] MCV (RBC) [Entitic vol] 92.1 fL Normal 83.5-101 [facility] Comment on above: Performed By: #### C BC, PT, PTT, CMP, BNP, HS TROP ####[address] Mean Corpuscular HGB Conc 34.2 g/dL Normal 32.5-35.6 [facility] Comment on above: Performed By: #### C BC, PT, PTT, CMP, BNP, HS TROP ####[address] Monocytes (Bld) [#/Vol] 0.5 10*3/uL Normal 0.0-0.8 [facility] Comment on above: Performed By: #### C BC, PT, PTT, CMP, BNP, HS TROP ####[address] Monocytes/100 WBC (Bld) 8.2 % Normal . [facility] Comment on above: Performed By: #### C BC, PT, PTT, CMP, BNP, HS TROP ####[address] Neutrophils (Bld) [#/Vol] 2.6 10*3/uL Normal 1.8-7.7 [facility] Comment on above: Performed By: #### C BC, PT, PTT, CMP, BNP, HS TROP ####[address] Neutrophils/100 WBC (Bld) 40.8 % Normal . [facility] Comment on above: Performed By: #### C BC, PT, PTT, CMP, BNP, HS TROP ####[place] [id number] [facility] Nucleated RBC/100 WBC (Bld) [Ratio] 0.2 % Normal 0-0.5 [facility] Comment on above: Performed By: #### C BC, PT, PTT, CMP, BNP, HS TROP ####[address] Platelet mean volume (Bld) [Entitic vol] 8.4 fL Normal 6.6-10.1 [facility] Comment on above: Performed By: #### C BC, PT, PTT, CMP, BNP, HS TROP ####[address] Platelets (Bld) [#/Vol] 325 10*3/uL Normal 150-450 [facility] Comment on above: Performed By: #### C BC, PT, PTT, CMP, BNP, HS TROP ####[address] RBC (Bld) [#/Vol] 4.97 10*6/uL Normal 3.90-5.60 [facility] Comment on above: Performed By: #### C BC, PT, PTT, CMP, BNP, HS TROP ####[place] [id number] [facility] WBC (Bld) [#/Vol] 6.5 10*3/uL Normal 4.5-11.0 [facility] Comment on above: Performed By: #### C BC, PT, PTT, CMP, BNP, HS TROP ####[place] [id number] [facility] Comprehensive Metabolic Pane rey 03-11-2022 Albumin [Mass/Vol] 3.7 g/dL Normal 3.2-5.5 [facility] Comment on above: Performed By: #### C BC, PT, PTT, CMP, BNP, HS TROP ####[place] [id number] [facility] Albumin/Globulin [Mass ratio] 1.0 {ratio} Normal [facility] Comment on above: Performed By: #### C BC, PT, PTT, CMP, BNP, HS TROP ####[place] [id number] [facility] ALP [Catalytic activity/Vol] 46 U/L Normal 32-92 [facility] Comment on above: Performed By: #### C BC, PT, PTT, CMP, BNP, HS TROP ####[place] [id number] [facility] ALT [Catalytic activity/Vol] 21 U/L Normal 10-60 [facility] Comment on above: Performed By: #### C BC, PT, PTT, CMP, BNP, HS TROP ####[place] [id number] [facility] AST [Catalytic activity/Vol] 21 U/L Normal 10-42 [facility] Comment on above: Performed By: #### C BC, PT, PTT, CMP, BNP, HS TROP ####[place] [id number] [facility] Bilirubin [Mass/Vol] 0.5 mg/dL Normal 0.3-1.2 [facility] Comment on above: Performed By: #### C BC, PT, PTT, CMP, BNP, HS TROP ####[place] [id number] [facility] Calcium [Mass/Vol] 9.2 mg/dL Normal 8.2-10.2 [facility] Comment on above: Performed By: #### C BC, PT, PTT, CMP, BNP, HS TROP ####[place] [id number] [facility] Chloride [Moles/Vol] 101 mmol/L Normal 95-114 [facility] Comment on above: Performed By: #### C BC, PT, PTT, CMP, BNP, HS TROP ####[address] CO2 [Moles/Vol] 25.6 mmol/L Normal 22.0-30.0 [facility] Comment on above: Performed By: #### C BC, PT, PTT, CMP, BNP, HS TROP ####[address] Creatinine [Mass/Vol] 0.80 mg/dL Normal 0.64-1.27 [facility] Comment on above: Performed By: #### C BC, PT, PTT, CMP, BNP, HS TROP ####[address] Creatinine Clr Calc Pharmacy 95.36 [facility] Comment on above: Result Comment: PERF ORMED BY: [facility] [address] [facility] [place] [address] PATHOLOGIST MANAGER ONLINE LUIS FELIPE STARK M.D. Performed By: #### C BC, PT, PTT, CMP, BNP, HS TROP ####[address] Estimated GFR ( Naz > 60 [facility] Comment on above: Result Comment: GFR estimated reference range: According to KDOQI guidelines, <60 ml/min/1.73m2 is sufficient to diagnose a patient with chronic kidney disease. Performed By: #### C BC, PT, PTT, CMP, BNP, HS TROP ####[address] Estimated GFR (Non- Am > 60 [facility] Comment on above: Performed By: #### C BC, PT, PTT, CMP, BNP, HS TROP ####[address] Globulin (S) [Mass/Vol] 3.8 g/dL [facility] Comment on above: Performed By: #### C BC, PT, PTT, CMP, BNP, HS TROP ####[address] [place] [address] [facility] Glucose [Mass/Vol] 95 mg/dL Normal 70-100 [facility] Comment on above: Result Comment: [place] Glucose Reference Range is dependent on time and content of last meal. Glucose of more than 200 mg/dL in a nonstressed, ambulatory subject supports the diagnosis of Diabetes Mellitus. ADA recommended reference range Performed By: #### C BC, PT, PTT, CMP, BNP, HS TROP ####[place] [id number] [place] [id number] [facility] Potassium [Moles/Vol] 4.1 mmol/L Normal 3.5-5.1 [facility] Comment on above: Performed By: #### C BC, PT, PTT, CMP, BNP, HS TROP ####[place] [id number] [facility] Protein [Mass/Vol] 7.5 g/dL Normal 6.1-7.9 [facility] Comment on above: Performed By: #### C BC, PT, PTT, CMP, BNP, HS TROP ####[place] [id number] [place] [phone] [facility] Sodium [Moles/Vol] 137 mmol/L Normal 136-146 [facility] Comment on above: Performed By: #### C BC, PT, PTT, CMP, BNP, HS TROP ####[place] [id number] [place] [phone] [facility] Urea nitrogen [Mass/Vol] 14 mg/dL Normal 9-23 [facility] Comment on above: Performed By: #### C BC, PT, PTT, CMP, BNP, HS TROP ####[place] [id number] [place] [phone] [facility] Dipstick and Microscopicon 0 03-11-2022 Appearance (U) Cloudy Critically abnormal Clear [facility] Comment on above: Order Comment: Name Collection Type:: Clean-Voided Midstream Performed By: #### A DDONUAPLUS #### [facility] [address] [place] [id number] [facility] Bacteria,Urine None Seen Normal None Seen [facility] Comment on above: Order Comment: Name Collection Type:: Clean-Voided Midstream Performed By: #### A DDONUAPLUS #### [facility] [address] [place] [address] [place] Bilirubin,Urine Negative Normal Negative [facility] Comment on above: Order Comment: Name Collection Type:: Clean-Voided Midstream Performed By: #### A DDONUAPLUS #### [facility] [address] [place] [address] [place] Color (U) Yellow Normal Yellow [facility] Comment on above: Order Comment: Name Collection Type:: Clean-Voided Midstream Performed By: #### A DDONUAPLUS #### [facility] [address] [place] [address] [place] Glucose Ql (U) Normal Normal Normal [facility] Comment on above: Order Comment: Name Collection Type:: Clean-Voided Midstream Performed By: #### A DDONUAPLUS #### [facility] [address] [place] [address] [place] Hyaline Casts,Urine None Seen Normal 0-8 [facility] Comment on above: Order Comment: Name Collection Type:: Clean-Voided Midstream Result Comment: PERF ORMED BY: [place] [address] PATHOLOGIST MANAGER ONLINE LUIS FELIPE STARK M.D. Performed By: #### A DDONUAPLUS #### [facility] [address] [place] [address] [place] Ketones Ql (U) Negative Normal Negative [facility] Comment on above: Order Comment: Name Collection Type:: Clean-Voided Midstream Performed By: #### A DDONUAPLUS #### [facility] [address] [place] [address] [place] Leukocyte esterase Test strip Ql (U) Negative Normal Negative [facility] Comment on above: Order Comment: Name Collection Type:: Clean-Voided Midstream Performed By: #### A DDONUAPLUS #### [facility] [address] [place] [address] [place] Nitrite,Urine Negative Normal Negative [facility] Comment on above: Order Comment: Name Collection Type:: Clean-Voided Midstream Performed By: #### A DDONUAPLUS #### [address] Occult Blood,Urine Negative Normal Negative [facility] Comment on above: Order Comment: Name Collection Type:: Clean-Voided Midstream Result Comment: PERF ORMED BY: [place] [address] PATHOLOGIST MANAGER ONLINE LUIS FELIPE STARK M.D. Performed By: #### A DDONUAPLUS #### [address] pH (U) 6.5 [pH] Normal 5.0-9.0 [facility] Comment on above: Order Comment: Name Collection Type:: Clean-Voided Midstream Performed By: #### A DDONUAPLUS #### [address] Protein,Urine Negative Normal Negative [facility] Comment on above: Order Comment: Name Collection Type:: Clean-Voided Midstream Performed By: #### A DDONUAPLUS #### [address] RBC LM.HPF (Urine sed) [#/Area] 0 /[HPF] Normal 0-4 [facility] Comment on above: Order Comment: Name Collection Type:: Clean-Voided Midstream Performed By: #### A DDONUAPLUS #### [address] Specificy [place],Urine 1.026 Normal 1.001-1.030 [facility] Comment on above: Order Comment: Name Collection Type:: Clean-Voided Midstream Performed By: #### A DDONUAPLUS #### [address] Squamous Epithelial Cell,Urine None Seen Normal 0-2 [facility] Comment on above: Order Comment: Name Collection Type:: Clean-Voided Midstream Performed By: #### A DDONUAPLUS #### [address] Urobilinogen,Urine Normal Normal Normal [facility] Comment on above: Order Comment: Name Collection Type:: Clean-Voided Midstream Performed By: #### A DDONUAPLUS #### [facility] [address] [place] [address] WBC LM.HPF (Urine sed) [#/Area] 0 /[HPF] Normal 0-4 [facility] Comment on above: Order Comment: Name Collection Type:: Clean-Voided Midstream Performed By: #### A DDONUAPLUS #### [facility] [address] [place] [address] ECG 12 lead ECGon 03-11-2022 ECG 12 lead ECG [facility] [place] [address] [place] [address] Electrocardiograph Report Signed Patient: Yordan Marroquin SR MR#: [id number] : 1945 Acct:[id number] Age/Sex: 76 / M ADM Date: 03/11/22 Loc: Room: [address] [place] [address] Type: DIS INOo Attending Dr: Kyler Wood [...] ECGs available Confirmed by Willy Topete DO ([id number]) on 03/11/2022 8:32:24 PM Referred By: Electronically Signed By:Willy Topete DO Transcribed By: MUS Signed By Willy Topete DO 2031 Normal [facility] Free T4 (Free Thyroxine)on 0 03-11-2022 Free T4 [Mass/Vol] 0.66 ng/dL Normal 0.61-1.12 [facility] Comment on above: Performed By: #### B 12, T4F, TSH3, A1C WTH eA #### [facility] [address] [place] [phone] [facility] Glucose Poct Glucometerson 0 03-11-2022 Glucose [Mass/Vol] 90 mg/dL Normal [facility] Comment on above: Result Comment: [place] Glucose Reference Range is dependent on time and content of last meal. Glucose of more than 200 mg/dL in a nonstressed, ambulatory subject supports the diagnosis of Diabetes Mellitus. PERFORMED BY: [facility] [address] [place] [id number] PATHOLOGIST MANAGER ONLINE LUIS FELIPE STARK M.D. Performed By: #### G LULS ####Point of Care testing, ISTAT XRay CREon 03-11-2022 Creatinine [Mass/Vol] 0.8 mg/dL Normal 0.6-1.3 [facility] Comment on above: Result Comment: ER/E SD physician is notified/shown all ISTAT results. Critical values may be confirmed by laboratory testing if deemed necessary by ER attending doctor. Performed By: #### I SCRE ####[address] [address] USAPoint of Care testing, ISTAT GFR ( > 60 Normal [facility] Comment on above: Result Comment: GFR estimated reference range: According to KDOQI guidelines, <60 ml/min/1.73m2 is sufficient to diagnose a patient with chronic kidney disease. PERFORMED BY: [facility] [address] [place] [phone] PATHOLOGIST MANAGER ONLINE LUIS FELIPE STARK M.D. Performed By: #### I SCRE ####[address] [address] USAPoint of Care testing, ISTAT GFR (Non- Am > 60 Normal [facility] Comment on above: Performed By: #### I SCRE ####[address] [address] USAPoint of Care testing, Partial Thromboplastin Timeo n 03-11-2022 aPTT Coag (Bld) [Time] 30.0 s Normal 25.1-36.5 [facility] Comment on above: Result Comment: PERF ORMED BY: [facility] [address] [place] [address] PATHOLOGIST MANAGER ONLINE LUIS FELIPE STARK M.D. Performed By: #### C BC, PT, PTT, CMP, BNP, HS TROP ####[place] [id number] [place] [phone] [facility] Prothrombin Time INRon 03-11 INR Coag (PPP) [Relative time] 1.0 {INR} Normal [facility] Comment on above: Result Comment: INR [...] BC, PT, PTT, CMP, BNP, HS TROP ####[place] [id number] [place] [phone] [facility] PT Coag (PPP) [Time] 11.0 s Normal 9.0-12.9 [facility] Comment on above: Performed By: #### C BC, PT, PTT, CMP, BNP, HS TROP ####[place] [id number] [facility] Sheba Ag Negativeon 03-11-20 Sheba Ag Negative Negative Normal Negative [facility] Comment on above: Result Comment: This is a duplicate Sheba SARS Antigen (JENIFER) result to be used for statistical tracking purpose only. PERFORMED BY: [facility] [address] [facility] [place] [address] PATHOLOGIST MANAGER ONLINE LUIS FELIPE STARK M.D. Performed By: #### C OVID-19 SHEBA, SOFIANEG, COVID 19 [facility] #### [place] [id number] [facility] Thyroid Stimulating Hormoneo n 03-11-2022 TSH Qn 2.65 m[IU]/L Normal 0.45-5.33 [facility] Comment on above: Result Comment: PERF ORMED BY: [facility] [address] [place] [address] PATHOLOGIST MANAGER ONLINE LUIS FELIPE STARK M.D. Performed By: #### B 12, T4F, TSH3, A1C WT eA #### [facility] [address] [place] [address] [facility] Troponin I High Sensitivityo n 03-11-2022 Troponin I High Sensitivity 3 pg/mL Normal 0-20 [facility] Comment on above: Result Comment: PERF ORMED BY: [facility] [address] [place] [address] PATHOLOGIST MANAGER ONLINE LUIS FELIPE STARK M.D. Performed By: #### C BC, PT, PTT, CMP, BNP, HS TROP ####[facility] [address] [place] [address] [facility] Vitamin B12on 03-11-2022 Cobalamin (Vitamin B12) [Mass/Vol] 468 pg/mL Normal 180-914 [facility] Comment on above: Performed By: #### B 12, T4F, TSH3, A1C [facility] eA #### [facility] [address] [place], [place] [id number] [facility] COVID Quick Testingon 2020 Result Negative [employer] Other PROGRESSon 06-14-2020 PROGRESS HNO ID: [id number] Author: Interface Note Service: ? Author Type: ? Type: Progress Notes Filed: 06/14/2020 11:07 AM Note Text: The surgical encounter documentation contains information performed by a different Karen Cedeño than is indicated by the provider record. Clinical care was provided and documented by the correct provider. [facility] CNOVon 07-02-2019 CNOV Office Visit (NRESFV) ---- ZAKYORDAN JOHNSON ([id number]) 1945 M Date Time Provider Department 07/02/19 1:30 PM MAREK RAND NRESFV During your visit today, we recorded the following information about you: Temperature Pulse Respiration Blood pressure 97.3 degrees 66/minute 18/minute 134/60 Weight Height 96.9 kg 1.88 m Marek Rand DO 07/02/2019 2:05 PM Signed [facility] Neurological [facility]ondoism Movement Disorders Neurotoxin Visit ? Date: July [...] INFORMED CONSENT ? Yordan Marroquin Medical Record: [id number] ? Procedure: bilateral cervical muscle injections with [...] 1:43 PM ? ? Dept of NEUROLOGICAL HINDUISM ? UNIVERSAL PROTOCOL / SAFETY CHECKLIST ? 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 ? Left Right Sternocleidomastoid ? ? Splenius capitus 30 30 Scalene ? ? Levator Scapulae ? ? Trapezius ? ? Semispinalis 30 30 Occipitalis 30 30 ? Lot#: [id number] Exp Date 10/2021 ? ? ? Future plan of care: Follow up: 3 months Neurotoxin Change: No Dose Change: No Initial injections previously - no ineffective with no ADRs. Will increase dose Referring Provider: MAREK RAND [[id number]] Allergies As of Date: 07/02/2019 Noted Allergy [...] * FLUTICASONE PROPIONATE 50 MCG* Use 1 [place] in each nostril o* DOCUSATE SODIUM 100 [...] Status:Closed by MAREK RAND DO on 07/02/19 [facility] PROGRESSon 07-02-2019 PROGRESS HNO ID: [id number] Author: Marek Rand Service: ? Author Type: Physician Type: Progress Notes Filed: 07/02/2019 2:05 PM Note Text: [facility] Neurological Cheondoism Movement Disorders Neurotoxin Visit ? Date: July [...] INFORMED CONSENT ? Yordan Marroquin Medical Record: [id number] ? Procedure: bilateral cervical muscle injections with [...] 1:43 PM ? ? Dept of NEUROLOGICAL HINDUISM ? UNIVERSAL PROTOCOL / SAFETY CHECKLIST ? [...] guidance: Yes Injection Site: Cervical dystonia: CPT 15953 ? ? Left Right Sternocleidomastoid ? ? Splenius capitus 30 30 Scalene ? ? Levator Scapulae ? ? Trapezius ? ? Semispinalis 30 30 Occipitalis 30 30 ? Lot#: [id number] Exp Date 10/2021 ? ? ? Future plan of care: Follow up: 3 months Neurotoxin Change: No Dose Change: No Initial injections previously - no ineffective with no ADRs. Will increase dose Normal [facility] Vital Signs Date Time Vital Sign Value Performing Clinician Facility 04-22-2024 14:20-0400 Body height 188 cm Mila Andino APRN.CNP Work Phone: [facility] 04-22-2024 14:20-0400 Body mass index (BMI) [Ratio] 27.6 kg/m2 Mila Andino APRN.CNP Work Phone: [facility] 04-22-2024 14:20-0400 Body weight 97.5 kg Mila Andino APRN.CNP Work Phone: [facility] 04-22-2024 14:20-0400 Diastolic blood pressure 57 mm[Hg] Mila Andino APRN.CNP Work Phone: [facility] 04-22-2024 14:20-0400 Heart rate 60 /min Mila Andino APRN.CNP Work Phone: [facility] 04-22-2024 14:20-0400 SaO2% (BldA) [Mass fraction] 97 % Mila Sina CHILLING HOOD OPERATOR.WORKCELL OPERATOR Work Phone: [facility] 04-22-2024 14:20-0400 Systolic blood pressure 116 mm[Hg] Mila Andino CHILLING HOOD OPERATOR.WORKCELL OPERATOR Work Phone: [facility] 03-04-2024 13:22-0400 Body height 188 cm Mila Andino CHILLING HOOD OPERATOR.WORKCELL OPERATOR Work Phone: [facility] 03-04-2024 13:22-0400 Body mass index (BMI) [Ratio] 27.82 kg/m2 Mila Andino CHILLING HOOD OPERATOR.WORKCELL OPERATOR Work Phone: [facility] 03-04-2024 13:22-0400 Body weight 98.3 kg Mila Andino APRN.WORKCELL OPERATOR Work Phone: [facility] 03-04-2024 13:22-0400 Diastolic blood pressure 65 mm[Hg] Mila Andino CHILLING HOOD OPERATOR.WORKCELL OPERATOR Work Phone: [facility] 03-04-2024 13:22-0400 Heart rate 62 /min Mila Andino CHILLING HOOD OPERATOR.WORKCELL OPERATOR Work Phone: [facility] 03-04-2024 13:22-0400 SaO2% (BldA) [Mass fraction] 97 % Mila Andino APRN.WORKCELL OPERATOR Work Phone: [facility] 03-04-2024 13:22-0400 Systolic blood pressure 113 mm[Hg] Mila Andino CHILLING HOOD OPERATOR.WORKCELL OPERATOR Work Phone: [facility] 09-04-2023 10:30-0400 Body height 188 cm Mila Andino CHILLING HOOD OPERATOR.WORKCELL OPERATOR Work Phone: [facility] 09-04-2023 10:30-0400 Body weight 95.07 kg Mila Andino CHILLING HOOD OPERATOR.WORKCELL OPERATOR Work Phone: [facility] 09-04-2023 10:30-0400 Diastolic blood pressure 69 mm[Hg] Mila Andino CHILLING HOOD OPERATOR.WORKCELL OPERATOR Work Phone: [facility] 09-04-2023 10:30-0400 Heart rate 63 /min Mila Andino CHILLING HOOD OPERATOR.WORKCELL OPERATOR Work Phone: [facility] 09-04-2023 10:30-0400 SaO2% (BldA) [Mass fraction] 95 % Mila Sina REY.WORKCELL OPERATOR Work Phone: [facility] 09-04-2023 10:30-0400 Systolic blood pressure 129 mm[Hg] Mila Andino APRN.WORKCELL OPERATOR Work Phone: [facility] 04-01-2023 11:50-0400 Body height 184.15 cm Krystina Shell Other [employer] Other 04-01-2023 11:50-0400 Body mass index (BMI) [Ratio] 26.76 kg/m2 Krystina Shell Other [employer] Other 04-01-2023 11:50-0400 Body temperature 97.5 [degF] Krystina Shell Other [employer] Other 04-01-2023 11:50-0400 Body weight 90.77 kg Krystina Shell Other [employer] Other 04-01-2023 11:50-0400 Diastolic blood pressure 92 mm[Hg] Krystina Shell Other [employer] Other 04-01-2023 11:50-0400 Respiratory rate 18 /min Krystina Shell Other [employer] Other 04-01-2023 11:50-0400 SaO2% (BldA) [Mass fraction] 94 % Krystina Shell Other [employer] Other 04-01-2023 11:50-0400 Systolic blood pressure 140 mm[Hg] Krystina Shell Other [employer] Other 02-08-2023 12:36-0400 Body height 188 cm Mila Andino CHILLING HOOD OPERATOR.WORKCELL OPERATOR Work Phone: [facility] 02-08-2023 12:36-0400 Body weight 94.39 kg Mila Andino CHILLING HOOD OPERATOR.WORKCELL OPERATOR Work Phone: [facility] 02-08-2023 12:36-0400 Diastolic blood pressure 65 mm[Hg] Mila Sina CHILLING HOOD OPERATOR.WORKCELL OPERATOR Work Phone: [facility] 02-08-2023 12:36-0400 Heart rate 72 /min Mila Andino CHILLING HOOD OPERATOR.WORKCELL OPERATOR Work Phone: [facility] 02-08-2023 12:36-0400 SaO2% (BldA) [Mass fraction] 97 % Mila Andino CHILLING HOOD OPERATOR.WORKCELL OPERATOR Work Phone: [facility] 02-08-2023 12:36-0400 Systolic blood pressure 106 mm[Hg] Mila Sina CHILLING HOOD OPERATOR.WORKCELL OPERATOR Work Phone: [facility] 11-09-2022 12:13-0500 Body height 188 cm Mila Andino CHILLING HOOD OPERATOR.WORKCELL OPERATOR Work Phone: [facility] 11-09-2022 12:13-0500 Body weight 94.39 kg Mila Andino CHILLING HOOD OPERATOR.WORKCELL OPERATOR Work Phone: [facility] 11-09-2022 12:13-0500 Diastolic blood pressure 76 mm[Hg] Mila Sina CHILLING HOOD OPERATOR.WORKCELL OPERATOR Work Phone: [facility] 11-09-2022 12:13-0500 Heart rate 72 /min Mila Andino CHILLING HOOD OPERATOR.WORKCELL OPERATOR Work Phone: [facility] 11-09-2022 12:13-0500 SaO2% (BldA) [Mass fraction] 97 % Mila Cruzter CHILLING HOOD OPERATOR.WORKCELL OPERATOR Work Phone: [facility] 11-09-2022 12:13-0500 Systolic blood pressure 115 mm[Hg] Mila Sina CHILLING HOOD OPERATOR.WORKCELL OPERATOR Work Phone: [facility] 10-17-2022 10:20-0500 Body height 184.15 cm Tyler Ulrich Other [employer] Other 10-17-2022 10:20-0500 Body mass index (BMI) [Ratio] 28.89 kg/m2 Tyler Ulrich Other [employer] Other 10-17-2022 10:20-0500 Body temperature 98.5 [degF] Tyler Ulrich Other [employer] Other 10-17-2022 10:20-0500 Body weight 97.98 kg Tyler Ulrich Other [employer] Other 10-17-2022 10:20-0500 Diastolic blood pressure 77 mm[Hg] Tyelr Ulrich Other [employer] Other 10-17-2022 10:20-0500 Respiratory rate 18 /min Tyler Ulrich Other [employer] Other 10-17-2022 10:20-0500 SaO2% (BldA) [Mass fraction] 96 % Tyler Ulrich Other [employer] Other 10-17-2022 10:20-0500 Systolic blood pressure 120 mm[Hg] Tyler Ulrich Other [employer] Other 08-10-2022 10:39-0400 Body weight 95.25 kg Stacy Jones MD Work Phone: [facility] 08-10-2022 10:39-0400 Diastolic blood pressure 82 mm[Hg] Stacy Jones MD Work Phone: [facility] 08-10-2022 10:39-0400 Heart rate 69 /min Stacy Jones MD Work Phone: [facility] 08-10-2022 10:39-0400 SaO2% (BldA) [Mass fraction] 98 % Stacy Jones MD Work Phone: [facility] 08-10-2022 10:39-0400 Systolic blood pressure 120 mm[Hg] Stacy Jones MD Work Phone: [facility] 05-02-2022 11:45-0400 Body height 188 cm Mila Andino CHILLING HOOD OPERATOR.WORKCELL OPERATOR Work Phone: [facility] 05-02-2022 11:45-0400 Body weight 94.26 kg Mila Andino CHILLING HOOD OPERATOR.WORKCELL OPERATOR Work Phone: [facility] 05-02-2022 11:45-0400 Diastolic blood pressure 75 mm[Hg] Mila Andino CHILLING HOOD OPERATOR.WORKCELL OPERATOR Work Phone: [facility] 05-02-2022 11:45-0400 Heart rate 63 /min Mila Andino CHILLING HOOD OPERATOR.WORKCELL OPERATOR Work Phone: [facility] 05-02-2022 11:45-0400 SaO2% (BldA) [Mass fraction] 99 % Mila Andino CHILLING HOOD OPERATOR.WORKCELL OPERATOR Work Phone: [facility] 05-02-2022 11:45-0400 Systolic blood pressure 129 mm[Hg] Mila Andino CHILLING HOOD OPERATOR.WORKCELL OPERATOR Work Phone: [facility] 05-02-2022 11:07-0400 Body height 188 cm Stacy Jones MD Work Phone: [facility] 05-02-2022 11:07-0400 Body weight 94.12 kg Stacy Jones MD Work Phone: [facility] 05-02-2022 11:07-0400 Diastolic blood pressure 75 mm[Hg] Stacy Jones MD Work Phone: [facility] 05-02-2022 11:07-0400 Heart rate 63 /min Stacy Jones MD Work Phone: [facility] 05-02-2022 11:07-0400 SaO2% (BldA) [Mass fraction] 99 % Stacy Jones MD Work Phone: [facility] 05-02-2022 11:07-0400 Systolic blood pressure 129 mm[Hg] Stacy Jones MD Work Phone: [facility] 01-16-2022 10:15-0400 Body height 184.15 cm Ny Schwerer Other [employer] Other 01-16-2022 10:15-0400 Body mass index (BMI) [Ratio] 28.89 kg/m2 Ny Schwerer Other [employer] Other 01-16-2022 10:15-0400 Body temperature 97.7 [degF] Ny Schwerer Other [employer] Other 01-16-2022 10:15-0400 Body weight 97.98 kg Ny Schwerer Other [employer] Other 01-16-2022 10:15-0400 Diastolic blood pressure 78 mm[Hg] Ny Schwerer Other [employer] Other 01-16-2022 10:15-0400 SaO2% (BldA) [Mass fraction] 96 % Ny Schwerer Other [employer] Other 01-16-2022 10:15-0400 Systolic blood pressure 122 mm[Hg] Ny Schwerer Other [employer] Other 10-18-2021 11:45-0500 Body height 184.15 cm Ny Schwerer Other [employer] Other 10-18-2021 11:45-0500 Body mass index (BMI) [Ratio] 28.61 kg/m2 Ny Schwerer Other [employer] Other 10-18-2021 11:45-0500 Body temperature 98.4 [degF] Ny Schwerer Other [employer] Other 10-18-2021 11:45-0500 Body weight 97.03 kg Ny Schwerer Other [employer] Other 10-18-2021 11:45-0500 Diastolic blood pressure 72 mm[Hg] Ny Schwerer Other [employer] Other 10-18-2021 11:45-0500 SaO2% (BldA) [Mass fraction] 95 % Ny Schwerer Other [employer] Other 10-18-2021 11:45-0500 Systolic blood pressure 126 mm[Hg] Ny Schwerer Other [employer] Other 09-11-2021 12:30-0500 Body height 184.15 cm Young Dean Other [employer] Other 09-11-2021 12:30-0500 Body mass index (BMI) [Ratio] 28.09 kg/m2 Young Dean Other [employer] Other 09-11-2021 12:30-0500 Body temperature 97.6 [degF] Young Dean Other [employer] Other 09-11-2021 12:30-0500 Body weight 95.26 kg Young Dean Other [employer] Other 09-11-2021 12:30-0500 Diastolic blood pressure 91 mm[Hg] Young Dean Other [employer] Other 09-11-2021 12:30-0500 SaO2% (BldA) [Mass fraction] 97 % Young Dean Other [employer] Other 09-11-2021 12:30-0500 Systolic blood pressure 132 mm[Hg] Young Dean Other [employer] Other Encounters Encounter Date Encounter Type Care Provider Facility Start: 06-02-2024 End: 06-02-2024 ambulatory ROSHAN HERNANDEZ Not Available Start: 05-29-2024 End: 05-29-2024 ambulatory ELIEZER EVONNE Not Available Start: 05-27-2024 End: 05-27-2024 ambulatory ELIEZER EVONNE Not Available Start: 05-22-2024 End: 05-22-2024 ambulatory LUPIS AVELAREBONYY Not Available Start: 05-14-2024 End: 05-14-2024 ambulatory CHRISTINA MIKECAESAR Not Available Start: 05-09-2024 End: 05-09-2024 ambulatory ELIEZER DOUGLASS Not Available Start: 05-06-2024 End: 05-06-2024 ambulatory LUPIS AVELAREBONYY Not Available Start: 05-05-2024 End: 05-05-2024 ambulatory ANDRESPADMINI De Leon SHAYY Not Available Start: 04-30-2024 End: 04-30-2024 ambulatory LAWSON YOUSIF Not Available Start: 04-22-2024 End: 04-22-2024 ambulatory MILA ANDINO Facility:[facility] Start: 04-22-2024 End: 04-22-2024 Patient encounter procedure Mila Andino CHILLING HOOD OPERATOR.WORKCELL OPERATOR Work Phone: Neurology Comment on above: Essential tremor (Pr imary Dx); S/P deep brain stimulator placement Start: 04-09-2024 Telephone encounter Mila mejia APRN.CNP Work Phone: Neurology Comment on above: Appointment Start: 03-05-2024 Telephone encounter Mila mejia APRN.CNP Work Phone: [facility] Comment on above: Results (Labs) Start: 03-04-2024 End: 03-04-2024 ambulatory [facility] Facility:[facility] Start: 03-04-2024 End: 03-04-2024 Patient encounter procedure Mila Andino APRN.WORKCELL OPERATOR Work Phone: Neurology Comment on above: Essential tremor (Pr imary Dx); S/P deep brain stimulator placement; Anxiety; Abnormality of gait; Cognitive impairment; Vitamin D deficiency Start: 01-31-2024 End: 01-31-2024 ambulatory CHRISTINA Mary GEOFFREY Not Available Start: 01-01-2024 End: 01-01-2024 ambulatory RASHEED LUCAS Not Available Start: 11-29-2023 End: 11-29-2023 ambulatory PERLA CRUZ Not Available Start: 11-21-2023 Daniel Carrasco MD [facility] Phone[facility] Comment on above: Arthritis; Vitamin D deficiency Start: 09-04-2023 End: 09-04-2023 Patient encounter procedure Mila Andino APRN.CNP Work Phone: Neurology Comment on above: Essential tremor (Pr imary Dx); Anxiety; S/P deep brain stimulator placement Start: 09-04-2023 End: 09-04-2023 ambulatory NY E SCHWERER Facility:[facility] Start: 04-11-2023 Telephone encounter Mila mejia APRN.CNP Work Phone: Neurology Comment on above: Appointment Start: 04-05-2023 Telephone encounter Mila mejia APRN.CNP Work Phone: [facility] Comment on above: Symptom Management Start: 04-01-2023 End: 04-01-2023 ambulatory Krystina Goff Other [employer] Other Start: 04-01-2023 Office outpatient vi sit 15 minutes Krystina Goff [facility] Start: 02-08-2023 End: 02-08-2023 Patient encounter procedure Mila Andino APRN.WORKCELL OPERATOR Work Phone: Neurology Comment on above: Essential tremor (Pr imary Dx); S/P deep brain stimulator placement; Anxiety Start: 11-09-2022 End: 11-09-2022 Patient encounter procedure Mila Andino APRN.WORKCELL OPERATOR Work Phone: Neurology Comment on above: Essential tremor (Pr imary Dx); S/P deep brain stimulator placement; Anxiety APPOINTMENT CANCELLE D (Primary Dx) Start: 10-17-2022 End: 10-17-2022 ambulatory Tyler Ulrich Other [employer] Other Start: 10-17-2022 Office outpatient vi sit 15 minutes Tyler Ulrich [facility] Start: 08-10-2022 End: 08-10-2022 Patient encounter procedure Stacy Jones MD Work Phone: Neurology Comment on above: Cervical dystonia (P rimary Dx) Start: 05-02-2022 End: 05-02-2022 Patient encounter procedure Stacy Jones MD Work Phone: Neurology Comment on above: Cervical dystonia (P rimary Dx) Anxiety (Primary Dx) ; Essential tremor; S/P deep brain stimulator placement Start: 04-20-2022 End: 04-21-2022 ambulatory Shayla Mirza Facility:[facility] Start: 03-22-2022 Telephone encounter Mila mejia APRN.WORKCELL OPERATOR Work Phone: [facility] Comment on above: Patient Request Start: 03-11-2022 End: 03-13-2022 ambulatory Kyler Wood Facility:[facility] Start: 02-15-2022 End: 02-15-2022 ambulatory Ny Hoyos Other [employer] Other Start: 02-15-2022 Telephone encounter Ny Schwerer [facility] Start: 02-09-2022 End: 02-09-2022 ambulatory Ny Schwerer Other [employer] Other Start: 02-09-2022 Telephone encounter Ny Schwerer [facility] Start: 01-16-2022 End: 01-16-2022 ambulatory Ny Schwerer Other [employer] Other Start: 01-16-2022 Office outpatient vi sit 10 minutes Ny Schwerer [facility] Start: 12-19-2021 End: 12-19-2021 ambulatory Ny Schwerer Other [employer] Other Start: 12-19-2021 Telephone encounter Ny Schwerer [facility] Start: 2021 End: 2021 ambulatory Ny Schwerer Other [employer] Other Start: 2021 Telephone encounter Ny Schwerer [facility] Start: 10-18-2021 End: 10-18-2021 ambulatory Ny Schwerer Other [employer] Other Start: 10-18-2021 Office outpatient vi sit 25 minutes Ny Schwerer [facility] Start: 09-11-2021 End: 09-11-2021 ambulatory Young Dean Other [employer] Other Start: 09-11-2021 Office outpatient vi sit 15 minutes Young Dean [facility] Start: 08-15-2018 End: 08-15-2018 Patient encounter RIGO MARTIN Facility:[facility] Start: 04-06-2017 End: 04-07-2017 Ambulatory LUAN DUMONT Facility:[facility] Procedures Date Procedure Procedure Detail Performing Clinician Start: 07-19-2023 Adult depression screening assessment Jun Carrasco MD Work Phone: Start: 05-02-2022 Adult depression screening assessment Stacy Jones MD Work Phone: Start: 10-06-2021 Adult depression screening assessment Mila Andino CHILLING HOOD OPERATOR.WORKCELL OPERATOR Work Phone: Start: 02-29-2016 H/O: surgery S/P deep brain stimulator placement Mila Sina CHILLING HOOD OPERATOR.WORKCELL OPERATOR Work Phone: H/O: surgery S/P deep brain stimulator placement Mila Sina CHILLING HOOD OPERATOR.WORKCELL OPERATOR Work Phone: H/O: surgery S/P deep brain stimulator placement Mila Sina CHILLING HOOD OPERATOR.WORKCELL OPERATOR Work Phone: H/O: surgery S/P deep brain stimulator placement Mila Sina CHILLING HOOD OPERATOR.WORKCELL OPERATOR Work Phone: H/O: surgery S/P deep brain stimulator placement Mila Sina CHILLING HOOD OPERATOR.WORKCELL OPERATOR Work Phone: H/O: surgery S/P deep brain stimulator placement Mila Sina CHILLING HOOD OPERATOR.WORKCELL OPERATOR Work Phone: H/O: surgery S/P deep brain stimulator placement Mila Sina CHILLING HOOD OPERATOR.WORKCELL OPERATOR Work Phone: Plan of Treatment Date Care Activity Detail Author Start: 06-29-2026 Diabetes Screening Diabetes Screenin g [facility] Start: 11-21-2024 DIABETES SCREEN DIABETES SCREEN [facility] Start: 09-06-2024 Adult BMI Screening Adult BMI Screen ing [facility] Start: 09-06-2024 Tobacco Screening Tobacco Screening [facility] Start: 08-18-2024 End: 08-18-2024 Patient encounter procedure 08/18/2024 8:30 AM EDT Office Visit [facility] [address] [place] [address] [place] [id number] Jun Carrasco MD [address] [place] [address], [place] [address] [facility] Start: 07-19-2024 Depression Screening Depression Scre ening [facility] Start: 07-19-2024 Fall Risk Screening Fall Risk Screen ing [facility] Start: 07-19-2024 Medicare Annual Well ness Visit Medicare Annual Wellness Visit [facility] Start: 07-06-2024 Influenza vaccination Influenz a Vaccine (Season Ended) [facility] Start: 04-09-2024 End: 04-09-2024 Patient encounter procedure 04/09/2024 3:00 PM EDT Office Visit Neurology [address] [address] Mila Andino, KRISSY.WORKCELL OPERATOR [address] [place] [address] DBS adjustment Neurology Comment on above: DBS adjustment Start: 03-04-2024 End: 06-03-2024 25-hydroxyvitamin D3 [Mass/volume] in Serum or Plasma VITAMIN D 25 HYDROXY Lab Routine Anxiety Cognitive impairment Vitamin D deficiency Expected: 03/04/2024, Expires: 06/03/2024 [facility] Comment on above: Expected: 03/04/2024 , Expires: 06/03/2024 Start: 03-04-2024 End: 06-03-2024 CBC W Auto Differential panel - Blood COMPLETE BLOOD COUNT AND DIFFERENTIAL Lab Routine Anxiety Abnormality of gait Cognitive impairment Expected: 03/04/2024, Expires: 06/03/2024 [facility] Comment on above: Expected: 03/04/2024 , Expires: 06/03/2024 Start: 03-04-2024 End: 06-03-2024 Comprehensive metabolic 2000 panel - Serum or Plasma COMPREHENSIVE METABOLIC PANEL Lab Routine Essential tremor Anxiety Abnormality of gait Cognitive impairment Expected: 03/04/2024, Expires: 06/03/2024 [facility] Comment on above: Expected: 03/04/2024 , Expires: 06/03/2024 Start: 03-04-2024 End: 06-03-2024 Folate [Mass/volume] in Serum or Plasma FOLATE, SERUM Lab Routine Anxiety Abnormality of gait Cognitive impairment Expected: 03/04/2024, Expires: 06/03/2024 [facility] Comment on above: Expected: 03/04/2024 , Expires: 06/03/2024 Start: 03-04-2024 End: 06-03-2024 Thyrotropin [Units/volume] in Serum or Plasma THYROID STIMULATING HORMONE Lab Routine Anxiety Cognitive impairment Expected: 03/04/2024, Expires: 06/03/2024 [facility] Comment on above: Expected: 03/04/2024 , Expires: 06/03/2024 Start: 03-04-2024 End: 06-03-2024 VITAMIN B12 W/REFLEX VITAMIN B12 W/REFLEX Lab Routine Anxiety Abnormality of gait Cognitive impairment Expected: 03/04/2024, Expires: 06/03/2024 [facility] Work Phone: Comment on above: Expected: 03/04/2024 , Expires: 06/03/2024 Start: 12-27-2023 Covid-19 Vaccine ( season) Covid-19 Vaccine () [facility] Start: 11-05-2023 Advance Directive Discussion Advance Directive Discussion [facility] Start: 07-06-2023 Influenza vaccination C [facility] Start: 05-02-2023 Adult depression screening assessment DEPRESSION SCREENING [facility] Start: 11-05-2022 ADVANCE DIRECTIVE DISCUSSION ADVANCE DIRECTIVE DISCUSSION [facility] Start: 11-05-2022 DEPRESSION ASSESSMENT DEPRESSION ASS ESSMENT [facility] Start: 10-06-2022 Adult depression screening assessment DEPRESSION SCREENING [facility] Start: 07-06-2022 Influenza vaccination C [facility] Start: 04-14-2022 COVID-19 VACCINE (5 - Booster for Moderna series) COVID-19 VACCINE (5 - Booster for Moderna series) [facility] Start: 12-28-2021 COVID-19 VACCINE (4 - Booster for Moderna series) COVID-19 VACCINE (4 - Booster for Moderna series) [facility] Start: 11-05-2021 ADVANCE DIRECTIVE DISCUSSION ADVANCE DIRECTIVE DISCUSSION [facility] Start: 11-05-2021 DEPRESSION ASSESSMENT DEPRESSION ASS ESSMENT [facility] Start: 2011 PNEUMOCOCCAL: 65+ (1 - PCV) PNEUMOCOCCAL: 65+ (1 - PCV) [facility] Start: 2011 PNEUMOVAX AGE 65 AND OVER WITH 5YR LOOKBACK (#1) PNEUMOVAX AGE 65 AND OVER WITH 5YR LOOKBACK (#1) [facility] Start: 2006 RSV Vaccine (1 - 1-d ose 60+ series) RSV Vaccine (1 - 1-dose 60+ series) [facility] Start: 1996 Administration of varicella zoster vaccine Zoster (Shingles) Vaccine (1 of 2) [facility] Start: 1996 SHINGRIX VACCINE (1 of 2) SHINGRIX VACCINE (1 of 2) [facility] Start: 1991 COLOGUARD (FIT-DNA) COLOGUARD (FIT-D NA) [facility] Start: 1991 Colonoscopy COLONOSCOPY [facility] Start: 1991 COLORECTAL CANCER SCREENING COLORECTAL CANCER SCREENING [facility] Start: [address] COLONOGRAPHY [facility] Start: 1991 FECAL OCCULT BLOOD FECAL OCCULT BLOO D [facility] Start: [address] [facility] Start: 1981 LIPID SCREEN LIPID SCREEN [facility] Start: 1965 DTaP,Tdap and Td Vaccines (1 - Tdap) DTaP,Tdap and Td Vaccines (1 - Tdap) [facility] Start: 1965 Urine microalbumin profile [facility] Start: 1964 Adult BMI Follow Up Plan Adult BMI Follow Up Plan [facility] Start: 1964 HEPATITIS C SCREENING HEPATITIS C [facility] Start: 1964 Hepatitis C screening Hepatitis C [facility] Immunizations Immunization Date Immunization Notes Care Provider Fa cility 01-14-2021 COVID-19 Vaccine Moderna - Documentation Purposes Only Young Dean Other [employer] Other 12-17-2020 COVID-19 Vaccine Moderna - Documentation Purposes Only Young Dean Other [employer] Other 09-18-2018 pneumococcal polysaccharide vaccine, 23 valent Jun Carrasco MD Work Phone: [employer] 08-30-2015 pneumococcal conjuga te vaccine, 13 valent Young Dean Other [employer] Other 08-05-2015 pneumococcal polysaccharide vaccine, 23 valent Young Dean Other [employer] Other Payers Date Payer Category Payer Self-pay 2017 Private Health Insurance [facility] AARP SUPPLEMENT [id number] 2017-Present [phone] [address] [place] [address] Indemnity [id number] 2017 Unknown [id number] 2015 Private Health Insurance [id number] 2012 Medicare MEDICARE MEDICAR E A AND B [id number] 2012-Present [phone] [address] [address] [place] [address] Medicare [id number] 2012 Medicare [id number] 2011 Medicare [id number] 1959 Medicare [id number] 1946 Unknown [id number] 1946 Unknown [id number] .1259 1946 Unknown [id number] [id number] .1259 1946 Unknown [id number] [id number] .9 1946 Unknown [id number] [id number] .1258 1946 Unknown [id number] [id number] .1258 1946 Unknown [id number] [id number] .1258 1946 Unknown [id number] 2.16.840.1.097630.3.579.2 .1258 1946 Unknown [id number] [id number] .1258 1946 Unknown [id number] [id number] .1258 1946 Unknown [id number] 2.16.840.1.040154.3.579.2 .1258 1946 Unknown [id number] [id number] .1258 1946 Unknown [id number] [id number] .1259 Unknown [id number] .531 Unknown [id number] .531 Social History Date Type Detail Facility Start: 03-16-2014 End: 08-10-2022 Tobacco smoking status NHIS Ex-smoker [facility] End: 11-05-1994 History of tobacco use Current smoker [facility] End: 11-05-1994 History of tobacco use Cigarette Smoker [facility] Start: 03-16-2014 End: 12-02-2022 Cigarettes smoked current (pack per day) - Reported 1 [facility] Start: 03-16-2014 End: 08-10-2022 Tobacco use and exposure Smokeless tobacco non-user [facility] Start: 01-06-2022 End: 04-22-2024 Alcohol intake Current non-drinker of alcohol (finding) [facility] Start: 02-24-2015 History SDOH Alcohol Comment quit 1991 [facility] Start: 1945 Sex Assigned At Not on file C [facility] Start: 12-02-2022 End: 09-04-2023 Sex Assigned At [facility] Start: 04-22-2022 End: 08-10-2022 Exposure to SARS-CoV-2 (event) Not sure [facility] Adult Depression Screening Assessment 0 [facility] Start: 1945 Sex Assigned At Male P [employer] Procedure Code Equipment Code Equipment Origin al Text Equipment Identifier Dates Stretch-Coil Dbs Extension 60 - [id number] Start: 05-15-2014 Lead Nrstm 40cm Actv Dbs - [id number] Start: 05-05-2014 Comment on above: Description: LEAD ON LY Ipg Activa Sc Db s Coil Extn - [id number] Start: 05-15-2014 Neurostimulator Activa Sc 0-10.5v 2-250hz 0-25.5ma 2.4inx2.2in .4in - [id number] Start: 12-14-2017 Neurostimulator Activa Rc 10.5-V 2-250hz 2.2inx2.2in .4in Implantable 2 - [id number] Start: 01-06-2022 Stent Uret 6fr 2 6cm W/O Gw Inl - [id number] Start: 02-25-2015 Comment on above: Description: no stri ng Stent Uret 6fr 2 6cm W/O Gw Inl - [id number] Start: 02-25-2015 Stent Uret 6fr 2 6cm W/O Gw Inl - [id number] Start: 03-11-2015 Stent Uret 6fr 2 6cm W/O Gw Inl - [id number] Start: 03-11-2015 Clinical Notes 09-11-2021 to 04-22-2024 Patient InstructionsMila Andino APRN.WORKCELL OPERATOR - 04/22/2024 2:41 PM EDMila Maravilla APRN.CNP - 04/22/2024 2:41 PM EDMila Maravilla APRN.CNP - 04/22/2024 2:30 PM EDTPatient Instructions Note Date & Type Note Facility 04-22-2024 Instructions Mila Andino APRN.CNP - 04/22/2024 2:50 PM EDT It was [...] or you can send a message through [email or web address]. You can also now schedule and select appointments through [employer]. Mila Andino APRN.LAURIE documented in this encounter [facility] 04-22-2024 Note HNO ID: [id number] Author: MILA ANDINO APRN.CNP Service: ? Author [...] improved and h (more content not included)... [facility] 04-22-2024 Procedure note DBS programming: Right chest [...] his eye started closing but then relaxed. [facility] 04-22-2024 Procedure note DBS programming: Right chest [...] but then relaxed. documented in this encounter [facility] 04-22-2024 Note HNO ID: [id number] Author: MILA ANDINO APRN.LAURIE Service: ? Author Type: Nurse Practitioner Type: Progress Notes Filed: 04/22/2024 18:48 Note Text: [facility] - FOLLOW UP EVALUATION Ny Hoyos DO [address] [facility] [place] [address] Dear Ny Hoyos DO: I had the [...] Allergies Unknown Current Outpatient Medications Medication Sig artvlbi-lvnbzodyb-yapwgoq D3 500 mg-5 mcg (200 unit) per tablet Take 1 tablet by mouth. L9-zdtjw-C02S63-xdbdus-pzeidkycvi (NEURIVA PLUS BRAIN PERFORMANCE) 1.7 mg-400 mcg- [...] (FLONASE) 50 mcg/actuation nasal spray Use 1 [place] in each nostril once daily. docusate sodium [...] is 27.6 kg/m?. Movement Disorders Scales Performed: Ymmk-Qtejfm-Gvnhd Tremor Scale Face Tremor At Rest: 0 - None. Tongue Tremor At Rest: Posture Holdin (more content not included)... [facility] 04-22-2024 History of Presen t illness Narrative [facility] - FOLLOW UP EVALUATION Ny Hoyos DO [address] [facility] [address] Dear Ny Hoyos, DO: I had the [...] Allergies Unknown Current Outpatient Medications Medication Sig shhwpeu-yqthmacvc-beuxkew D3 500 mg-5 mcg (200 unit) per tablet Take 1 tablet by mouth. U9-eqyqu-W50U27-trlskv-sxudaiahnj (NEURIVA PLUS BRAIN PERFORMANCE) 1.7 mg-400 mcg- [...] (FLONASE) 50 mcg/actuation nasal spray Use 1 [place] in each nostril once daily. docusate sodium [...] 27.6 kg/m . Movement Disorders Scales Performed: Daan-Ycwaiu-Zaysd Tremor Scale Face Tremor At Rest: 0 [...] or around: 02/03/25 Level of service : 76715 (20-29 min). Time spent 20 min on the day of service, which included preparing to see the patient, tova-my-ugik patient care, completing clinical documentation, obtaining and/or reviewing separately obtained history, performing a medically appropriate examination, and counseling and educating the patient/family/caregiver. This does not include DBS analysis and/or programming time. Mila Andino APRN.CNP documented in this encounter [facility] 04-09-2024 Telephone encounter Note At appointment time, 3p, pt was not checked in. Went to lobby/waiting room and hallway to call for pt. Pt was not in either location. [facility] 04-09-2024 Miscellaneous Notes At appointment time, 3p, pt was not checked in. Went to lobby/waiting room and hallway to call for pt. Pt was not in either location. documented in this encounter [facility] 03-05-2024 Telephone encounter Note I reviewed the labs and these are wnl except his Vit D level is still low. I will have him contacted to follow up with his primary care provider about this and then the labs will be faxed to the primary care provider as well. Mila Andino APRN-LAURIE [facility] 03-05-2024 Miscellaneous Notes I reviewed the labs [...] available in CareEverywhere. documented in this encounter [facility] 03-05-2024 Telephone encounter Note Pt's called to report that he had labs done yesterday at outside facility. Looks like they are available in CareEverywhere. [facility] 03-04-2024 Instructions Mila Andino APRN.LAURIE - 03/04/2024 2:17 PM EDT It was [...] or you can send a message through [id number]. You can also now schedule and select appointments through [id number]. Mila Andino APRN.LAURIE documented in this encounter [facility] 03-04-2024 History of Presen t illness Narrative [facility] - FOLLOW UP EVALUATION Ny Hoyos DO [address] [facility] [place] [address] Dear Ny E Schwerer, DO: I had the pleasure of seeing [...] (FLONASE) 50 mcg/actuation nasal spray Use 1 [place] in each nostril once daily. docusate sodium (COLACE) 100 mg capsule Take 1 capsule by mouth twice daily as needed for Constipation. B6-eqlya-C15H94-ulitam-vvnxsarptn (NEURIVA PLUS BRAIN PERFORMANCE) 1.7 mg-400 mcg- [...] 27.82 kg/m . Movement Disorders Scales Performed: [place] Cognitive Assessment (MoCA) Visuospatial/Executive 2 Naming 3 Attention 6 Language 0 Abstraction 1 Delayed Memory 2 Orientation 6 Education < or equal to 12 years (1 is true, 0 is false) 1 MoCA Total Score 21 Ruyl-Qnmlgx-Xbfoa Tremor Scale Voice Tremor Action and Intention: [...] intracranial process. Assessment and Plan: Assessment Mr. Finkenbine is a left-handed 78 year old year [...] Mila Andino APRN.LAURIE documented in this encounter [facility] 03-04-2024 Note HNO ID: [id number] Author: MILA ANDINO APRN.CNP Service: ? Author Type: Nurse Practitioner Type: Procedures Filed: 03/05/2024 12:54 Note Text: DBS programming: Right chest RC-placed in January 2022 Battery: 100% with excellent coupl-LELE 2/29/36 System impedances were checked and are within [...] is the be (more content not included)... [facility] 03-04-2024 Note HNO ID: [id number] Author: MILA ANDINO APRN.WORKCELL OPERATOR Service: ? Author Type: Nurse Practitioner Type: Progress Notes Filed: 03/05/2024 12:54 Note Text: [facility] - FOLLOW UP EVALUATION Ny Hoyos DO [address] [facility] [place] [address] Dear Ny Hoyos DO: I had the [...] (FLONASE) 50 mcg/actuation nasal spray Use 1 [place] in each nostril once daily. docusate sodium (COLACE) 100 mg capsule Take 1 capsule by mouth twice daily as needed for Constipation. S2-mdnaz-H82U41-lejsxw-ooovklscts (NEURIVA PLUS BRAIN PERFORMANCE) 1.7 mg-400 mcg- [...] is 27.82 kg/m?. Movement Disorders Scales Performed: [place] Cognitive Assessment (MoCA) Visuospatial/Executive 2 Naming 3 Attention 6 Language 0 Abstraction 1 Delayed Memory 2 Orientation 6 Education < or equal to 12 years (1 is true, 0 is false) 1 MoCA Total Score 21 Xvwt-Juvjkw-Dfnlg Tremor Scale Voice Tremor Action and Intention: [...] RC. He als (more content not included)... [facility] 03-04-2024 Procedure note DBS programming: Right chest [...] his eye started closing but then relaxed. [facility] 03-04-2024 Procedure note DBS programming: Right chest [...] but then relaxed. documented in this encounter [facility] 09-04-2023 Instructions Mila Andino APRN.LAURIE - 09/04/2023 10:54 AM EDT It was [...] or you can send a message through [id number]. You can also now schedule and select appointments through [id number]. Mila Andino APRN.LAURIE documented in this encounter [facility] 09-04-2023 Note HNO ID: [id number] Author: Mila Andino APRN.CNP Service: ? Author [...] he did not (more content not included)... [facility] 09-04-2023 Procedure note DBS programmin:43am-10:51am Right chest [...] but then relaxed. documented in this encounter [facility] 09-04-2023 Note HNO ID: [id number] Author: Mila Andino APRN.LAURIE Service: ? Author Type: Nurse Practitioner Type: Progress Notes Filed: 09/04/2023 11:18 AM Note Text: [facility] - FOLLOW UP EVALUATION Ny Hoyos DO [address] [facility] [place] [address] Dear Ny Hoyos DO: I had the [...] this with the following steps: -Push the [place] check button and then hold the object oriented programmer up to your battery. -Using the navigator pad at the bottom of your object oriented programmer, push the down arrow to put [...] settings you came in on). -Push the [place] check button and then hold the object oriented programmer up to your battery. You should [...] old settings. He has been going to [employer] three times a week and this [...] (FLONASE) 50 mcg/actuation nasal spray Use 1 [place] in each nostril once daily. docusate sodium [...] is 26.91 kg/m?. Movement Disorders Scales Performed: Iiox-Yzngyp-Rdxuq Tremor Scale Face Tremor At Rest: 2 [...] with essential tremor (more content not included)... [facility] 09-04-2023 History of Presen t illness Narrative [facility] - FOLLOW UP EVALUATION Ny Hoyos DO [address] [facility] [place] [address] Dear Ny Hoyos DO: I had the [...] this with the following steps: -Push the [place] check button and then hold the object oriented programmer up to your battery. -Using the navigator pad at the bottom of your object oriented programmer, push the down arrow to put [...] settings you came in on). -Push the [place] check button and then hold the object oriented programmer up to your battery. You should [...] old settings. He has been going to [employer] three times a week and this [...] (FLONASE) 50 mcg/actuation nasal spray Use 1 [place] in each nostril once daily. docusate sodium [...] 26.91 kg/m . Movement Disorders Scales Performed: Ydyv-Rtbugx-Knxai Tremor Scale Face Tremor At Rest: 2 [...] speech changes and gait changes Mila Andino APRN.LAURIE documented in this encounter [facility] 04-11-2023 Miscellaneous Notes Attempted to reach patient at 12 pm- no answer unable to leave voicemail ; mail box is not set up 2nd attempt at 1:07 pm no answer answer. Jennie Cisneros ----- Message from Mila Andino APRN.LAURIE sent at 04/11/2023 11:52 AM EDT ----- [...] it. Thanks! Mila documented in this encounter [facility] 04-06-2023 Miscellaneous Notes I spoke with him. [...] new prescription was sent in for this. PHILIP Rouse calling again. Aware provider is out today. She is looking for sooner appt. Pt's called - she feels he needs a DBS ADJ as his tremors have become much worse. I don't see anything soon that is available. [phone] documented in this encounter [facility] 04-01-2023 Evaluation note Encounter Date Diagnosis Assessment Notes March, Strain of lumbar region, initial encounter (ICD-10 - S39.012A) Low back pain home care material was printed [employer] [facility] Other 04-06-2023 Instructions* Patient Instructions* Mila Andino APRN.WORKCELL OPERATOR - 02/08/2023 1:38 PM EDT It was [...] this with the following steps: -Push the [place] check button and then hold the object oriented programmer up to your battery. -Using the navigator pad at the bottom of your object oriented programmer, push the down arrow to put [...] settings you came in on). -Push the [place] check button and then hold the object oriented programmer up to your battery. You should [...] or you can send a message through 1010data. You can also now schedule and select appointments through [employer]. Mila Andino APRN.LAURIE [facility] Procedure note* Mila Andino APRN.LAURIE - 02/08/2023 1:06 PM EDT DBS programmin:08pm-1:29pm [...] closing but then relaxed. [facility] History of Present illness Narrative* Mila Andino APRN.LAURIE - 02/08/2023 12:53 PM EDT [facility] - FOLLOW UP EVALUATION Ny Hoyos DO [address] [facility] [place] [address] Dear Ny Hoyos DO: I had the [...] (FLONASE) 50 mcg/actuation nasal spray Use 1 [place] in each nostril once daily. docusate sodium [...] 26.72 kg/m . Movement Disorders Scales Performed: Ejzo-Jjkmay-Waepa Tremor Scale Voice Tremor Action and Intention: [...] this with the following steps: -Push the [place] check button and then hold the object oriented programmer up to your battery. -Using the navigator pad at the bottom of your object oriented programmer, push the down arrow to put [...] settings you came in on). -Push the [place] check button and then hold the object oriented programmer up to your battery. You should [...] lightheadedness, speech changesand gait changes. Mila Andino APRN.WORKCELL OPERATOR [facility] History of Present illness Narrative* Stacy Jones MD - 11/09/2022 12:52 PM EST At appointment with EW today patient stated he did not want to proceed with injections today since pain is managed. Therefore I did not see him. Will keep February appointments for now and cancel if notneeded. [facility] Instructions* Patient Instructions* Mila Andino APRN.CNP - 11/09/2022 12:31 PM EST It was [...] or you can send a message through [employer]. You can also now schedule and select appointments through [employer]. Mila Andino APRN.LAURIE [facility] Procedure note* Mila Andino APRN.CNP - 11/09/2022 12:23 PM EST DBS programming: [...] closing but then relaxed. [facility] History of Present illness Narrative* Mila Andino APRN.CNP - 11/09/2022 12:17 PM EST [facility] - FOLLOW UP EVALUATION Ny Hoyos DO [address] [facility] [place] [address] Dear Ny Hoyos DO: I had the [...] (FLONASE) 50 mcg/actuation nasal spray Use 1 [place] in each nostril once daily. docusate sodium [...] 26.72 kg/m . Movement Disorders Scales Performed: Ucyf-Anlpfu-Iskki Tremor Scale Voice Tremor Action and Intention: [...] Buspar 10mg 1 1 1 Mila Andino APRN.WORKCELL OPERATOR documented in [facility] Evaluation note* Encounter Date Diagnosis Assessment Notes [...] Pt understood and agreed to tx plan. [employer] [facility] Other 10-06-2022 History of Present illness Narrative* Stacy Jones MD - 08/10/2022 10:50 AM EDT Images from the original note were not included. [place] [facility] Neurotoxin Visit Date: August 10, [...] (FLONASE) 50 mcg/actuation nasal spray Use 1 [place] in each nostril once daily. docusate sodium [...] N/A Administered with EMG guidance: Yes Lot#: [id number], [id number] Exp Date: , Today's neurotoxin regimen: Med right midline left Sternocleidomastoid 1500 1500 Splenius capitus 750 750 Semispinalis 1500 1500 Total: 7500 Future plan of care: Follow up: 3 months Neurotoxin change: No Dose change:No Dilution change:No Stacy Jones MD August 10, 2022 12:20 PM Dept of NEUROLOGY TIME OUT/ PROCEDURE NOTE: Informed consent Yordan Marroquin Medical Record: [id number] Procedure: neurotoxin intramuscular injection The risks, benefits [...] -- Stacy Jones MD documented in [facility] encounter[facility] Instructions* Patient Instructions* Mila Andino APRN.LAURIE - [...] or you can send a message through [employer]. You can also now schedule and select appointments through [employer]. Mila Andino APRN.LAURIE documented in this encounter[facility] Procedure note* Mila Andino APRN.LAURIE - 05/02/2022 12:17 PM EDT DBS programming: [...] closing but then relaxed. documented in this encounter[facility] History of Present illness Narrative* Mila Andino APRN.LAURIE - 05/02/2022 12:03 PM EDT [facility] - FOLLOW UP EVALUATION Ny Hoyos, DO [address] [facility] [place] [address] I had the pleasure of seeing Mr. [...] similar foods. May bring head at least longterm to meet food. Tremor liquids Moderately abnormal. [...] (FLONASE) 50 mcg/actuation nasal spray Use 1 [place] in each nostril once daily. docusate sodium [...] BMI 26.68 kg/m Movement Disorders Scales Performed: Lgls-Tqxses-Evnei Tremor Scale Voice Tremor Action and Intention: [...] Making Level: 4 - Moderate Mila Andino APRN.WORKCELL OPERATOR documented in this encounterMer[facility] History of Present illness Narrative* Stacy Jones MD - 05/02/2022 11:14 AM EDT Images from the original note were not included. [facility] Neurotoxin Visit Date: May 02, [...] (FLONASE) 50 mcg/actuation nasal spray Use 1 [place] in each nostril once daily. docusate sodium [...] guidance: Yes Injection Site: Cervical dystonia: CPT 64052 Right Left Sternocleidomastoid 1000 1000 Splenius capitus 500 500 Scalene Levator Scapulae Trapezius Semispinalis 1000 1000 Future plan of care: Return in about 3 months (around 08/02/2022) for botulinum toxin. Stacy Jones M.D. Clinical Beer Coil Cleaner, [facility] Staff, [facility] [place] [facility] documented in this encounterMer[facility] Miscellaneous Notes* Telephone Encounter - Darlin Johnson [facility] - 03/24/2022 10:05 AM EDT Pt's phoned [...] appt. * Telephone Encounter - Ce Coats [facility] - 03/22/2022 1:26 PM EDT NI PHONE [...] Jones before 04/13/22 scheduled appt with Mila Sina WORKCELL OPERATOR. Number to return call [phone] Okay to leave a message ? Yes Last office visit 10/06/21 with Mila Andino CNP & Dr. Jones Next office visit 04/13/22 with Mila Andino CNP Thank you calling [facility] [place]. You will receive a return call within 48hours ( or 2 business days if close to the weekend). If you feel that this is an urgent issue and needs immediate attention, it is recommended that you contact your primary care provider office or proceed to your nearest Urgent Care Center of Emergency Room ED for evaluation/treatment. ' documented in this encounterMer[facility]03-[facility] Evaluation note* Encounter Date Diagnosis Assessment Notes [...] call if those occur. Looks great today. [employer] [facility] Other 02-14-2022 Evaluation note* Encounter Date Diagnosis Assessment Notes Treatment Notes Treatment Clinical Notes Dec, Seasonal allergies (ICD-10 - J30.2) [facility] Other 12-14-2021 Evaluation note* Encounter Date Diagnosis [...] Hyperlipidemia, mixed (ICD-10 - E78.2) will update. [employer] Other 11-07-2021 Evaluation note* Encounter Date Diagnosis [...] Patient care instructions given in writting by [facility] document. [employer] Other Evaluation note* Diagnosis Cervical dystonia- Primary Spasmodic torticollis [facility]* Diagnosis Anxiety- Primary Anxiety state, unspecified Essential tremor Essential and other specified forms of tremor S/P deep brain stimulator placement Other postprocedural status documented in this [facility] noteNo InformationNort [employer] Other Evaluation note* Diagnosis Cervical dystonia- Primary Spasmodic torticollis [facility]* Diagnosis Essential tremor- Primary Essential and other specified forms of tremor S/P deep brain stimulator placement Other postprocedural status Anxiety Anxiety state, unspecified documented [facility]* Diagnosis APPOINTMENT CANCELLED- Primary [facility] Essential tremor- Primary Essential and other specified forms of tremor S/P deep brain stimulator placement Other postprocedural status Anxiety Anxiety state, unspecified documented [facility]* Diagnosis Anxiety Anxiety state, unspecified documented [facility]* Diagnosis Essential tremor- Primary Essential and other specified forms of tremor Anxiety Anxiety state, unspecified S/P deep brain stimulator placement Other postprocedural status documented [facility]* Diagnosis Arthritis Unspecified arthropathy, site unspecified Vitamin D deficiency [facility] Diagnosis Essential tremor- Primary Essential and other specified forms of tremor S/P deep brain stimulator placement Other postprocedural status Anxiety Anxiety state, unspecified Abnormality of gait Cognitive impairment Unspecified persistent mental disorders due to conditions classified elsewhere Vitamin D deficiency Unspecified vitamin D deficiency [facility]* Diagnosis Essential tremor- Primary Essential and other specified forms of tremor S/P deep brain stimulator placement Other postprocedural status documented in this encounter [facility] general Narrative - Reported* Type Description Date Medical History tremors Medical History Atrial fibrillation Surgical History DBS - Deep brain stimulator 201 0 Surgical History R knee replacement Surgical History L elbow - pinched nerve Surgical History cardiac ablation Hospitalization History see above [employer] Other History general Narrative - Reported* Type Description Date Medical History tremors Medical History Atrial fibrillation Medical History GERD Surgical History DBS - Deep brain stimulator 201 0 Surgical History R knee replacement Surgical History L elbow - pinched nerve Surgical History cardiac ablation Hospitalization History see above [employer] Other InstructionsNot on filedocumented in this encounter [facility] Summary Purpose Family History No Family History Records FoundNo Family History Records FoundNo Family History Records FoundNo Family History Records FoundNo Family History Records FoundNo Family History Records FoundNo Family History Records Found Advance Directives No Advanced Directives Records FoundDocuments on File Type Date Recorded Patient Group Therapy Counselor Expl anation Advance Directive(s) 11/29/2021 2:19 PM Advance Directive(s) 12/06/2017 1:47 PM Medications Administered Section Inactive Administered Medications - up to 3 most recent administrations Medication Order MAR Action Action Date Dose Rate Site botulinum toxin type b 5,000 Units injection (MYOBLOC) 5,000 Units, INTRAMUSCULAR, ONCE, 1 dose, On e 05/02/22 at 1130, REFRIGERATE - Pharmaceutical Waste: Lab [...] 5,000 Units, INTRAMUSCULAR, ONCE, 1 dose, On Luanne 08/10/22 at 1100, REFRIGERATE - Pharmaceutical Waste: Lab Pack - Given 08/10/2022 12:22 PM EDT 5,000 Units Other Reason for Referral Specialty Diagnoses / Procedures Referred By Contac t Referred To Contact Diagnoses Essential tremor S/P deep brain stimulator placement Procedures PROVIDER ORDERED FOLLOW UP OFFICE/OUTPATIENT NEW HIGH MDM 60 MINUTES Mila Andino, CHILLING HOOD OPERATOR.WORKCELL OPERATOR [address] [place] [address] Referral ID Status Reason Start Date Expiration Date Visits Requested Visits Authorized [id number] Authorized PCP Requested Referral 02/03/2025 04/22/2025 1 1 Specialty Diagnoses / Procedures Referred By Contac t Referred To Contact [facility] Diagnoses Essential tremor Abnormality of gait Procedures CONSULT TO PHYSICAL THERAPY PHYSICAL THERAPY EVALUATION HIGH COMPLEX 45 MINS Mila Andino, CHILLING HOOD OPERATOR.WORKCELL OPERATOR [address] [place] [address] [facility] [place] [address] [place] [address] Referral ID Status Reason Start Date Expiration Date Visits Requested Visits Authorized [id number] Authorized PCP Requested Referral Auto-Generate d Referral 03/04/2024 03/04/2025 99 99 Additional Source Comments (unrecognized sect ion and content) No Status Records FoundNo Status Records FoundNo Status Records FoundNo Status Records FoundNo Status Records FoundNo Status Records FoundNo Status Records Found INFORMATION SOURCE (unrecogn ized section and content) DATE CREATED AUTHOR 05/01/2018 [facility] DATE CREATED AUTHOR AUTHOR'S ORGANIZ ATION 09/22/2018 [facility] DATE CREATED AUTHOR AUTHOR'S ORGANIZ ATION 07/03/2019 [facility] DATE CREATED AUTHOR AUTHOR'S ORGANIZ ATION 06/14/2020 [facility] DATE CREATED AUTHOR AUTHOR'S ORGANIZ ATION 2022 [facility] DATE CREATED AUTHOR AUTHOR'S ORGANIZ ATION 04/24/2024 [facility] DATE CREATED AUTHOR AUTHOR'S NOEMI VALLE 06/03/2024 [facility] Source Comments (unrecognize d section and content) In the event this informatio n is protected by the Federal Confidentiality of Alcohol and Drug Abuse Patient Records regulations: The Federal rules restrict any use of the information to criminally investigate or prosecute any alcohol or drug abuse patient.[facility] the event this information is protected by the Federal Confidentiality of Alcohol and Drug Abuse Patient Records regulations: The Federal rules restrict any use of the information to criminally investigate or prosecute any alcohol or drug abuse patient.[facility] Hospital[facility] the event this information is protected by the Federal Confidentiality of Alcohol and Drug Abuse Patient Records regulations: The Federal rules restrict any use of the information to criminally investigate or prosecute any alcohol or drug abuse patient.[facility] Hospital[facility] the event this information is protected by the Federal Confidentiality of Alcohol and Drug Abuse Patient Records regulations: The Federal rules restrict any use of the information to criminally investigate or prosecute any alcohol or drug abuse patient.[facility] Hospital[facility] the event this information is protected by the Federal Confidentiality of Alcohol and Drug Abuse Patient Records regulations: The Federal rules restrict any use of the information to criminally investigate or prosecute any alcohol or drug abuse patient.[facility] HospitalIn the event this information is protected by the Federal Confidentiality of Alcohol and Drug Abuse Patient Records regulations: The Federal rules restrict any use of the information to criminally investigate or prosecute any alcohol or drug abuse patient.[facility] HospitalIn the event this information is protected by the Federal Confidentiality of Alcohol and Drug Abuse Patient Records regulations: The Federal rules restrict any use of the information to criminally investigate or prosecute any alcohol or drug abuse patient.[facility] HospitalIn the event this information is protected by the Federal Confidentiality of Alcohol and Drug Abuse Patient Records regulations: The Federal rules restrict any use of the information to criminally investigate or prosecute any alcohol or drug abuse patient.[facility] HospitalIn the event this information is protected by the Federal Confidentiality of Alcohol and Drug Abuse Patient Records regulations: The Federal rules restrict any use of the information to criminally investigate or prosecute any alcohol or drug abuse patient.[facility] HospitalIn the event this information is protected by the Federal Confidentiality of Alcohol and Drug Abuse Patient Records regulations: The Federal rules restrict any use of the information to criminally investigate or prosecute any alcohol or drug abuse patient.[facility] HospitalIn the event this information is protected by the Federal Confidentiality of Alcohol and Drug Abuse Patient Records regulations: The Federal rules restrict any use of the information to criminally investigate or prosecute any alcohol or drug abuse patient.[facility] HospitalIn the event this information is protected by the Federal Confidentiality of Alcohol and Drug Abuse Patient Records regulations: The Federal rules restrict any use of the information to criminally investigate or prosecute any alcohol or drug abuse patient.[facility] HospitalIn the event this information is protected by the Federal Confidentiality of Alcohol and Drug Abuse Patient Records regulations: The Federal rules restrict any use of the information to criminally investigate or prosecute any alcohol or drug abuse patient.[facility] HospitalIn the event this information is protected by the Federal Confidentiality of Alcohol and Drug Abuse Patient Records regulations: The Federal rules restrict any use of the information to criminally investigate or prosecute any alcohol or drug abuse patient.[facility] Reason for Visit (unrecogniz ed section and content) Reason Comments Patient Request Reason Comments Neurotoxin Injection Reason Comments Essential tremor Reason Comments Symptom Management Reason Comments Appointment Reason Comments Med Refill Reason Comments Essential tremor Follow Up Reason Comments Results Labs Reason Comments Essential tremor Follow Up Care Teams (unrecognized sec tion and content) Sql Developer Dba Relationship Specialty Start Date End Date Ny Hoyos DO [address] [facility] [place] [address] PCP - General Family Practice 10/06/21 Sql Developer Dba Relationship Specialty Start Date End Date Ny Hoyos DO [address] [place] [address] PCP - General Family Practice 10/06/21 Sql Developer Dba Relationship Specialty Start Date End Date Ny Hoyos, DO [address] [place] [address] PCP - General Family Practice 10/06/21 Sql Developer Dba Relationship Specialty Start Date End Date Ny Hoyos E, DO [address] [place] [address] PCP - General Family Medicine 10/06/21 Sql Developer Dba Relationship Specialty Start Date End Date Marine Hoyoslin Trang, DO [address] [place] [address] PCP - General Family Medicine 10/06/21 Sql Developer Dba Relationship Specialty Start Date End Date Marine Hoyoslin Trang, DO [address] [place] [address] PCP - General Family Medicine 10/06/21 Sql Developer Dba Relationship Specialty Start Date End Date Ny Hoyos, DO [address] [place] [address] PCP - General Family Medicine 10/06/21 Sql Developer Dba Relationship Specialty Start Date End Date Alee Hoyositlin E, DO [address] [place] [address] PCP - General Family Medicine 10/06/21 Sql Developer Dba Relationship Specialty Start Date End Date Romain Ny E, DO [address] [place] [address] PCP - General Family Medicine 10/06/21 Sql Developer Dba Relationship Specialty Start Date End Date Ny Hoyos DO [address] [place] [address] PCP - General Family Medicine 10/06/21 Sql Developer Dba Relationship Specialty Start Date End Date Jun Carrasco MD [address] [place] [address] PCP - General Internal Medicine 03/23/23 [facility] Nurse [facility] 06/14/23 Sql Developer Dba Relationship Specialty Start Date End Date Ny Hoyos DO [address] [place] [address] PCP - General Family Medicine 10/06/21 Sql Developer Dba Relationship Specialty Start Date End Date Ny Hoyos DO [address] [place] [place] [address] PCP - General Family Medicine 10/06/21 Sql Developer Dba Relationship Specialty Start Date End Date Ny Hoyos DO [address] [place] [address] PCP - General Family Medicine 10/06/21 Sql Developer Dba Relationship Specialty Start Date End Date Ny Hoyos DO [address] [place] [address] PCP - General Family Medicine 10/06/21 FOR [...] BE BASED ON THE PRIMARY CLINICAL RECORDS. [facility]. provides no warranty or guarantee of the accuracy or completeness of information in this document.
[2024-06-07 15:46] LABS: Basophils Absolute Auto 0.1 10^3/uL (0.0-0.1); Basophils Percent Auto 0.9 % (0.2-2.0); Eosinophils Absolute Auto 0.2 10^3/uL (0.0-0.7); Eosinophils Percent Auto 1.7 % (0.9-7.0); Hematocrit 46.2 % (42.0-54.0); Hemoglobin 15.5 g/dL (14.0-18.0); Immature Granulocytes Abs Auto 0.02 10^3/uL (0.00-0.03); Immature Granulocytes Pct Auto 0.2 % (0.0-0.5); Lymphocytes Absolute Auto 1.6 10^3/uL (1.2-3.8); Lymphocytes Percent Auto 18.8 % (20.5-60.0); Mean Corpuscular HGB Conc 33.5 g/dL (29.9-35.2); Mean Corpuscular Hemoglobin 32.2 pg (25.9-34.0); Mean Corpuscular Volume 95.9 fL (80.0-94.0); Mean Platelet Volume 9.9 fL (9.5-13.5); Monocytes Absolute Auto 0.7 10^3/uL (0.3-0.8); Monocytes Percent Auto 7.8 % (1.7-12.0); Neutrophils Absolute Auto 6.1 10^3/uL (1.4-6.5); Neutrophils Percent Auto 70.6 % (43.0-75.0); Platelet Count 321 10^3/uL (150-450); Red Blood Count 4.82 10^6/uL (4.70-6.10); Red Cell Distribution Width 13.5 % (11.0-15.0); White Blood Count 8.6 10^3/uL (4.0-11.0)
[2024-06-07 16:32] LABS: Anion Gap 14.5; BUN Creatinine Ratio 20.8; Calcium 8.3 mg/dL (8.5-10.1); Carbon Dioxide 22.7 mmol/L (21.0-32.0); Chloride 107 mmol/L (98-107); D Dimer 0.66 mg/L FEU (<=0.59); Estimated GFR (African America >60 (>=60); Estimated GFR (Non-African Ame >60 (>=60); Glucose 104 mg/dL (74-106); Potassium 4.2 mmol/L (3.5-5.1); Sodium 140 mmol/L (136-145); Troponin I High Sensitivity 4.9 pg/mL (4.0-76.1)
--- NOTE | 2024-06-07 16:32 | CT_ITS ---
The [address] [address] Patient Name: YORDAN KELLY MRN: [id number] date: 1945 Sex: M Assigned Patient Location: ER Current Patient Location: Accession/Order Number: [id number] Exam Date: 06/07/2024 16:55 Report Date: 06/07/2024 17:56 At the request of: JACQUELINE BETTS Procedure: CT angio chest EXAM: CT angio chest HISTORY: Chest pain, elevated D-dimer COMPARISON: None. TECHNIQUE: CT chest with intravenous contrast was performed with timing for the evaluation for pulmonary arteries. Multiplanar reformats were performed. MIP (maximum intensity projection) images or 3D post processing was performed. Dose reduction techniques were achieved by using automated exposure control and/or adjustment of mA and/or kV according to patient size and/or use of iterative reconstruction technique. FINDINGS: Lungs: No consolidation, pneumothorax, or effusion. Airways: Normal. Mediastinum: No adenopathy. Aorta: No aneurysm. Cardiac: Normal size. No pericardial effusion. Pulmonary vasculature: Diagnostic opacification of pulmonary arteries without evidence of pulmonary embolus. Normal morphology. Bones: No acute bony abnormality. Axilla: No adenopathy. Thyroid gland: No abnormality demonstrated on provided imaging. Soft tissues: Unremarkable. Upper abdomen: Unremarkable. Additional findings: None. CT/CT angio chest IMPRESSION:No evidence of pulmonary embolus or acute intrathoracic abnormality. Electronically authenticated by: AYAN GALLARDO Date: 06/07/2024 17:56
[2024-06-07 19:00] LABS: Troponin I High Sensitivity 5.5 pg/mL (4.0-76.1)
== END 2024-06-07 19:38 | disposition home or self-care (01) ==
PROVIDERS: Emergency Medicine; Emergency Provider Internal Medicine; PCP Family Medicine
DX: R07.9 Chest pain, unspecified (principal)
CPT/HCPCS: 36415; 71045; 71275; 80048; 84484; 85025; 85378; 93005; 99285; Q9967

== ENCOUNTER 2024-07-02 07:00 | Outpatient (OUT) | payer MEDICARE, SELFPAY ==
--- NOTE | 2024-07-02 06:50 | NM_ITS ---
Patient Name: YORDAN KELLY MR#: [id number] : 1945 Exam Date: 07/02/2024 Ordering Doctor: DR RASHEED LUCAS M.D. RADIOLOGY REPORT PROCEDURE: NM MARLENE PERF SPECT REST STR COMPARISON: None. INDICATIONS: CHEST PAIN TECHNIQUE: Exam Description: Stress/Rest one day protocol gated SPECT Rest Imagin.4 mCi Tc-99m Cardiolite IV on 07/02/2024 Stress Imaging 30.7 mCi Tc-99m Cardiolite IV on 07/02/2024 Exercise Protocol: 0.4 mg Lexiscan given IV Heart Rate (bpm): Rest: 67 Max: 118 PMHR: 82 Blood Pressure: Rest: 144/88 Max: 146/86 Symptoms: Rest and peak stress ECG findings were normal and the exercise portion of the study was normal per attending physician Dr. Crowder . For more details please see separate cardiac stress test report. FINDINGS: QUALITY OF STUDY: Good. PERFUSION DEFECT: LOCATION: Basal inferior. Mid-inferior. SIZE: Small (1-2 segments). SEVERITY: Mild. TYPE: Persistent. WALL MOTION: Normal. LV SIZE: Normal. 92 mL. TID / TCD: None; 0.9 LVEF: Normal. Calculated EF 65%. SUMMARY: Myocardial perfusion imaging study has ABNORMAL findings. CONCLUSION: 1. Small fixed defect in the inferior wall, RCA distribution 2. No reversible ischemia 3. Normal exercise test Dictated by: Manny Morales MD on 07/03/2024 at 14:37 Approved by: Manny Morales MD on 07/03/2024 at 14:51
--- OUTSIDE RECORDS SUMMARY | 2024-07-02 07:02 | XMS_ITS | CCD ---
Author Organization [facility] Care Team Providers Care Technical Systems Architect Name Role Phone LUAN DUMONT Unavailable Unavailable LUAN DUMONT Unavailable Unavailable LUAN DUMONT Unavailable Unavailable SHIVAM JOHN Unavailable Unavailable LUAN DUMONT Unavailable Unavailable MARIO, RIGO Unavailable Unavailable MARIO, RIGO Unavailable Unavailable NO FAMILY DOCTOR, NO FAMILY DOCTOR Unavailable Unavailable Ny Hoyos DO Primary Care Provider [phone] Young Dean Unavailable Ny Hoyos Unavailable Ny Hoyos DO Primary Care Provider [phone] Ny Hoyos DO Primary Care Provider [phone] Shayla Mirza Attending Unavailable Shayla Mirza Primary [...] Provider MILA ANDINO Attending Unavailable NY HOYOS E Primary Care Unavailable NY HOYOS E Primary Care Unavailable MILA ANDINO Attending Unavailable NY HOYOS E Primary Care Unavailable [...] HERNANDEZ Attending Unavailable MILA ANDINO Referring Unavailable ELIEZER DOUGLASS Attending Unavailable MILA ANDINO Referring Unavailable RASHEED LUCAS Attending Unavailable Allergies Allergy Classification Reported Allergen(s) Allergy Type Date of Onset Reaction(s) Facility Penicillins (antibiotic) (1 source) Penicillins; Translations: [PENICILLINS] Drug Allergy 4 [facility]ository (1 source) Penicillins Drug allergy (disorder) 4 [facility] Repository (1 source) Penicillins Drug Allergy 4 [facility] (15 sources) Seasonal allergy; Translations: [SEASONAL ALLERGIES] Allergy to substance 0 Unknown [facility] Work Phone: (9 sources) Penicillin V Drug Allergy Unknown [employer] Other (14 sources) Penicillins Drug Allergy 4 [facility] (11 sources) Bee Sting; Translations: [BEE STING] Allergy to substance 1 Rash [facility] Work Phone: (1 source) Penicillins Drug allergy (disorder) 8 [facility] Repository Medications Current Medications Medication Drug [...] a day for 30 day(s) Oct, Active N4-xpbjt-H27-coffee- phosphatid (NEURIVA PLUS BRAIN PERFORMANCE) 1.7 mg-400 mcg- 2.4 mcg cap (4 sources) Start: 03-04-2024 take 1 capsule by mouth once daily X2-cehch-G67-coff ee-phosphatid (NEURIVA PLUS BRAIN PERFORMANCE) 1.7 mg-400 [...] the afternoon Take 2 tablets by mo [facility] two times a day. calcium [...] 0 04/22/2024 Discontinued take 1 capsule by [facility] twice daily celecoxib (CELEBREX) 200 mg [...] on above: Take 1 capsule by mo [facility] every morning. docusate sodium 100 mg oral capsule (14 sources) Start: 03-11-20 15 take 1 capsule by mouth every twelve hours as needed docusate sodium (COLACE) 100 mg capsule Take 1 capsule by mouth twice daily as needed for Constipation. 60 capsule 0 03/11/2015 Active Comment on above: Take 1 capsule by [facility] twice daily as needed for Constipation. [...] (FLONASE) 50 mcg/actuation nasal spray Use 1 [place] in each nostril once daily. 0 Active take 1 spray(s) nasal route once daily Flonase 50 MCG/ACT 1 spray in each nostril Nasally Once a day for 30 day(s) Active Comment on above: Use 1 [place] in each nostril once daily. Neuriva - [...] Active Start: 10-18-2021 take 2 tablets by [facility] every twenty-four hours predniSONE 20 MG 2 tablets Orally Once a day for 5 days Oct, Active tamsulosin hydrochloride 0.4 mg oral capsule (1 source) alpha-Adrenergic Yuli take 1 capsule by mouth once daily tamsulosin (FLOMAX) 0.4 mg capsule,extended release 24hr Take 0.4 mg by mouth nightly. 0 Active tiZANidine 2 mg oral tablet (1 source) Central alpha-2 Adrenergic Agonist Start: 05-28-2 023 take 1 tablet by mouth every [...] Start: 10-18-2021 take 1 capsule by mo [facility] every twenty-four hours ZyrTEC Allergy [...] on above: Take 1 tablet by mely once daily. Toradol 30 mg/ml (1 source) [...] / Z68.27(ICD-9) Onset: 08-15-2018 Unclassified (1 source) alf (current) use of aspirin / Z79.82(ICD-9) Onset: [...] Test Name Value Interpretation Reference Range Facility [facility] 04-22-2024 CNOV Office Visit (NRMDN) ---- YORDAN MARROQUIN ([id number]) 1945 M Date Time Provider Department 04/22/24 2:30 PM MILA ANDINO During your visit today, we recorded the following information about you: Pulse Blood pressure Weight Height 60/minute 116/57 97.5 kg 1.88 m Mila Andino APRN.METAL OFF BEARER 04/22/2024 6:48 PM Signed [facility] - FOLLOW UP EVALUATION Ny Hoyos DO [address] [place] [address] Dear Ny Hoyos DO: I had the [...] Allergies Unknown Current Outpatient Medications Medication Sig oiokbsc-qvrbiwabu-w itamin D3 500 mg-5 mcg (200 unit) per tablet Take 1 tablet by mouth. Q6-yhhzi-H26-coffee -phosphatid (NEURIVA PLUS BRAIN PERFORMANCE) 1.7 mg-400 [...] (FLONASE) 50 mcg/actuation nasal spray Use 1 [place] in each nostril once daily. docusate sodium [...] Weight: 97.5 (more content not included)... Normal [facility] CNCOon 04-09-2024 CNCO Letter Text Normal [facility] shaneka Boyd CNPNon 04-09-2024 CNPN Telephone (NRMDN) ---- YORDAN MARROQUIN ([id number]) 1945 M Date Time Provider Department 04/09/24 [...] Date Reviewed: 03/04/2024 Reviewed by: Mila Andino APRN.[facility] - Fully Assessed Reason for Visit: Appointment [186] Prescriptions as of 04/09/2024 - K0-rmksd-I00-coffee -phosphatid (NEURIVA PLUS BRAIN PERFORMANCE) 1.7 mg-400 [...] (FLONASE) 50 mcg/actuation nasal spray Use 1 [place] in each nostril once daily. - docusate [...] Encounter Status:Closed by ESTRELLA CABALLERO on 04/09/24 [facility] 03-05[facility] YORDAN MARROQUIN ([id number]) 1945 M Date Time Provider Department 03/05/24 MILA ANDINO NRCURTISS2 During your visit today, we recorded the following information about you: Darlin Santiago 03/05/2024 10:04 AM Signed Pt's called to report that he had labs done yesterday at outside facility. Looks like they are available in CareEverywhere. Mila Andino APRN.METAL OFF BEARER 03/05/2024 4:47 PM Signed I reviewed the [...] provider given PCP is Dr. Lucas on [address] in [facility] Phone number [phone] Fax number [phone] Labs faxed with confirmation of transmission received Allergies As of Date: 03/05/2024 Noted Allergy Reaction BEE STING 11/01/2021 2 - Rash PENICILLINS 03/16/2014 4 - Hives SEASONAL ALLERGIES 04/29/2020 16 - Unknown Date Reviewed: 03/04/2024 Reviewed by: Mila Andino APRN.[facility] - Fully Assessed Reason for Visit: Results [95] Cmt: Labs Prescriptions as of 03/06/2024 - U8-zgpjq-K37-coffee -phosphatid (NEURIVA PLUS BRAIN PERFORMANCE) 1.7 mg-400 [...] (FLONASE) 50 mcg/actuation nasal spray Use 1 [place] in each nostril once daily. - docusate [...] Encounter Status:Closed by MILA ANDINO on 03/05/24 [facility] CNOVon 03-04-2024 CNOV Office Visit (NRMDN) ---- YORDAN MARROQUIN ([id number]) 1945 Date Time Provider Department 03/04/24 1:30 PM MILA ANDINO NRN During your visit today, we recorded the following information about you: Pulse Blood pressure Weight Height 62/minute 113/65 98.3 kg 1.88 m Mila Andino APRN.METAL OFF BEARER 03/05/2024 12:54 PM Signed [facility] - FOLLOW UP EVALUATION Ny Hoyos DO [address] [facility] [address] Dear Ny Hoyos DO: I had the [...] (FLONASE) 50 mcg/actuation nasal spray Use 1 [place] in each nostril once daily. docusate sodium (COLACE) 100 mg capsule Take 1 capsule by mouth twice daily as needed for Constipation. H5-bcffw-B66-coffee -phosphatid (NEURIVA PLUS BRAIN PERFORMANCE) 1.7 mg-400 [...] is false) 1 MoCA Total Score 21 Vzgg-Faycnx-Kofbr Tremor Scale Voice Tremor Action and Intention: [...] No acute (more content not included)... Normal [facility] CNOVon 09-04-2023 CNOV Office Visit (NRMDN) ---- YORDAN MARROQUIN ([id number]) 1945 M Date Time Provider Department 09/04/23 11:00 AM MILA ANDINO During your visit today, we recorded the following information about you: Pulse Blood pressure Weight Height 63/minute 129/69 95.1 kg 1.88 m Mila Andino APRN.METAL OFF BEARER 09/04/2023 11:18 AM Signed [facility] - FOLLOW UP EVALUATION Ny Hoyos DO [address] [facility] [place] [address] Dear Ny Hoyos DO: I had the [...] this with the following steps: -Push the Rooks check button and then hold the ibm mainframe systems programmer up to your battery. -Using the navigator pad at the bottom of your ibm mainframe systems programmer, push the down arrow to put [...] settings you came in on). -Push the Rooks check button and then hold the ibm mainframe systems programmer up to your battery. You should [...] (FLONASE) 50 mcg/actuation nasal spray Use 1 [place] in each nostril once daily. docusate sodium [...] is 26.91 kg/m?. Movement Disorders Scales Performed: Jpnv-Rxgkjl-Onrfe Tremor Scale Face Tremor At Rest: 2 [...] Studies 6/ (more content not included)... Normal [facility] COVID + FLU Quick Testingon 10-17-2022 SARS-CoV-2 (COVID-19) RNA LARISSA+probe Ql (Unsp spec) Positive [employer] [facility] [employer] Other COVID + FLU Quick Testing Negative [facility] Other [facility] echo transthoracicon [facility] echo transthoracic [facility] [address] Echocardiogram Signed Patient: Yordan Marroquin SR MR#: [id number] : 1945 Acct:[id number] Age/Sex: 76 / M ADM Date: 03/11/22 Loc: Room: [address] [place] [address] Type: DIS INOo Attending Dr: Kyler Wood MD Ordering Provider: Zaki Cali DO Date of Service: 03/13/22/ [facility] echo transthoracic: CVA Copies to: DO Juanjose [...] By: Juanjose Limon MD 03/13/[address] [facility] Lipid Panelon 03-13-2022 Cholesterol [Mass/Vol] 222 mg/dL High 140-200 [facility] Comment on above: Result Comment: Chol less than 200 mg/dl low risk Chol 201-239 mg/dl borderline risk Chol 240 mg/dl and greater high risk Performed By: #### L IPID #### [facility] [address] Cholesterol in HDL [Mass/Vol] 41 mg/dL Normal 29-71 [facility] Comment on above: Result Comment: HDL CHOL ATP-III CLASSIFICATION Cardiovascular Risk HDL > or equal to 60 mg/dL LOW HDL < 40 mg/dL HIGH Performed By: #### L IPID #### [facility] [address] [place] [address] [place] Cholesterol.total/C holesterol in HDL [Mass ratio] 5.4 {ratio} Normal <5.0 [facility] Comment on above: Result Comment: PERF ORMED BY: [place] [address] PATHOLOGIST FORKLIFT TRUCK OPERATOR LUIS FELIPE STARK M.D. Performed By: #### L IPID #### [address] LDL Cholesterol,Calcula nandini 164 mg/dL High 0-100 [facility] Comment on above: Result Comment: LDL ATP III CLASSIFICATION LDL less than 100 mg/dL Optimal LDL 100-129 mg/dL Near or above optimal LDL 130-159 mg/dL Borderline high LDL 160-189 mg/dL High LDL greater than 189 mg/dL Very high Performed By: #### L IPID #### [address] Triglyceride w/Reflex 85 mg/dL Normal 35-149 [facility] Comment on above: Result Comment: TRIG ATP III CLASSIFICATION TRIG less than 150 mg/dL Normal TRIG 150-199 mg/dL Borderline high TRIG 200-500 mg/dL High TRIG greater than 500 mg/dL Very high Standard traceable to the Center for Disease Conrtrol and Prevention (CDC) test method. Performed By: #### L IPID #### [address] VLDL CHOLESTEROL 17 mg/dL Normal [facility] Comment on above: Performed By: #### L IPID #### [address] Basic Metabolic Panelon 05-0 -2021 Calcium [Mass/Vol] 8.5 mg/dL Normal 8.2-10.2 [facility] Comment on above: Performed By: #### B 12, T4F, TSH3, A1C WTH eA #### [address] Chloride [Moles/Vol] 105 mmol/L Normal 95-114 [facility] Comment on above: Performed By: #### B 12, T4F, TSH3, A1C WTH eA #### [facility] [address] [place] [address] [place] CO2 [Moles/Vol] 24.2 mmol/L Normal 22.0-30.0 [facility] Comment on above: Performed By: #### B 12, T4F, TSH3, A1C WTH eA #### [facility] [address] Creatinine [Mass/Vol] 0.68 mg/dL Normal 0.64-1.27 [facility] Comment on above: Performed By: #### B 12, T4F, TSH3, A1C WTH eA #### [facility] [address] [place] [address] [place] Creatinine Clr Calc Pharmacy 95.36 [facility] Comment on above: Performed By: #### B 12, T4F, TSH3, A1C WTH eA #### [address] Estimated GFR ( Naz > 60 [facility] Comment on above: Result Comment: GFR estimated reference range: According to KDOQI guidelines, <60 ml/min/1.73m2 is sufficient to diagnose a patient with chronic kidney disease. Performed By: #### B 12, T4F, TSH3, A1C WTH eA #### [address] Estimated GFR (Non- Am > 60 [facility] Comment on above: Performed By: #### B 12, T4F, TSH3, A1C WTH eA #### [address] Glucose [Mass/Vol] 93 mg/dL Normal 70-100 [facility] Comment on above: Result Comment: [place] om Glucose Reference Range is dependent on time and content of last meal. Glucose of more than 200 mg/dL in a nonstressed, ambulatory subject supports the diagnosis of Diabetes Mellitus. ADA recommended reference range Performed By: #### B 12, T4F, TSH3, A1C WTH eA #### [facility] [address] [place] [address] [place] Potassium [Moles/Vol] 3.8 mmol/L Normal 3.5-5.1 [facility] Comment on above: Performed By: #### B 12, T4F, TSH3, A1C WT eA #### [facility] [address] Sodium [Moles/Vol] 137 mmol/L Normal 136-146 [facility] Comment on above: Performed By: #### B 12, T4F, TSH3, A1C WT eA #### [facility] [address] Urea nitrogen [Mass/Vol] 10 mg/dL Normal 9-23 [facility] Comment on above: Performed By: #### B 12, T4F, TSH3, A1C [facility] eA #### [address] head stroke alert wo cono n 03-12-2022 CT head stroke alert wo con [facility] Main [place] [address] [place] [address] CT Scan Report Signed Patient: Yordan Marroquin SR MR#: [id number] : 1945 Acct:[id number] Age/Sex: 76 / M ADM Date: 03/11/22 Loc: Room: 6N0097-9 Type: ADM INOo Attending Dr: Zaki Cali DO Ordering Provider: Willy Topete DO Date of Service: 03/11/22 CT/CT angio neck: left sided weakness ([id number]) CT/CT angio head: left sided weakness ([id number]) CT/CT head stroke alert wo con: left [...] carotid systems or major branches of the [place]. Impression dictated by: Sam Laurent Jr., D.ONadia03/12/2022 9:14 AM Dictation Location: RADIO-PC-09 Transcribed By: STEPHANIE 03/12/22913 Dictated By: Sam Laurent Jr, DO 03/12/2259 Signed By: 03/12/22913 [facility] CT head/brain wo conon 03-12 CT head/brain wo con [facility] Main [place] [address] [place] [address] CT Scan Report Signed Patient: Yordan Marroquin SR MR#: [id number] : 1945 Acct:[id number] Age/Sex: 76 / M ADM Date: 03/11/22 Loc: Room: [address] [place] [address] Type: ADM INOo Attending Dr: Zaki Cali [...] Laurent Jr., D.O.03/12/2022 9:18 AM Dictation Location: RADIO-PC-09 Transcribed By: STEPHANIE 03/12/22917 Dictated By: Sam Laurent Jr, DO 03/12/22913 Signed By: 03/12/[address] [facility] Complete Blood Count Auto Di ffon 03-12-2022 Basophils (Bld) [#/Vol] 0.1 10*3/uL Normal 0.0-0.2 [facility] Comment on above: Result Comment: PERF ORMED BY: [place] [address] PATHOLOGIST FORKLIFT TRUCK OPERATOR LUIS FELIPE STARK M.D. Performed By: #### B 12, T4F, TSH3, A1C WTH eA #### [facility] [address] [place] [address] [place] Basophils/100 WBC (Bld) 1.2 % Normal . [facility] Comment on above: Performed By: #### B 12, T4F, TSH3, A1C WTH eA #### [facility] [address] [place] [address] [place] Eosinophils (Bld) [#/Vol] 0.4 10*3/uL Normal 0.0-0.45 [facility] Comment on above: Performed By: #### B 12, T4F, TSH3, A1C WTH eA #### [facility] [address] [place] [address] [place] Eosinophils/100 WBC (Bld) 6.5 % Normal . [facility] Comment on above: Performed By: #### B 12, T4F, TSH3, A1C WTH eA #### [facility] [address] [place] [address] [place] Erythrocyte distribution width (RBC) [Ratio] 13.7 % Normal 12.0-14.8 [facility] Comment on above: Performed By: #### B 12, T4F, TSH3, A1C WTH eA #### [facility] [address] [place] [address] [place] Hematocrit (Bld) [Volume fraction] 43.2 % Normal 38.8-50.0 [facility] Comment on above: Performed By: #### B 12, T4F, TSH3, A1C WTH eA #### [facility] [address] [place] [address] [place] Hemoglobin (Bld) [Mass/Vol] 15.0 g/dL Normal 13.0-17.0 [facility] Comment on above: Performed By: #### B 12, T4F, TSH3, A1C WTH eA #### [facility] [address] Lymphocytes (Bld) [#/Vol] 2.2 10*3/uL Normal 1.00-4.8 [facility] Comment on above: Performed By: #### B 12, T4F, TSH3, A1C WTH eA #### [facility] [address] Lymphocytes/100 WBC (Bld) 39.5 % Normal . [facility] Comment on above: Performed By: #### B 12, T4F, TSH3, A1C WTH eA #### [facility] [address] MCH (RBC) [Entitic mass] 32.1 pg Normal 27.5-35.2 [facility] Comment on above: Performed By: #### B 12, T4F, TSH3, A1C WTH eA #### [facility] [address] MCV (RBC) [Entitic vol] 92.3 fL Normal 83.5-101 [facility] Comment on above: Performed By: #### B 12, T4F, TSH3, A1C WTH eA #### [facility] [address] Mean Corpuscular HGB Conc 34.8 g/dL Normal 32.5-35.6 [facility] Comment on above: Performed By: #### B 12, T4F, TSH3, A1C WTH eA #### [facility] [address] [place] [address] [place] Monocytes (Bld) [#/Vol] 0.5 10*3/uL Normal 0.0-0.8 [facility] Comment on above: Performed By: #### B 12, T4F, TSH3, A1C WTH eA #### [facility] [address] [place] [address] [place] Monocytes/100 WBC (Bld) 8.5 % Normal . [facility] Comment on above: Performed By: #### B 12, T4F, TSH3, A1C WTH eA #### [facility] [address] [place] [address] [place] Neutrophils (Bld) [#/Vol] 2.5 10*3/uL Normal 1.8-7.7 [facility] Comment on above: Performed By: #### B 12, T4F, TSH3, A1C WT eA #### [facility] [address] [place] [address] [place] Neutrophils/100 WBC (Bld) 44.3 % Normal . [facility] Comment on above: Performed By: #### B 12, T4F, TSH3, A1C WTH eA #### [place] [address] [place] Nucleated RBC/100 WBC (Bld) [Ratio] 0.0 % Normal 0-0.5 [facility] Comment on above: Performed By: #### B 12, T4F, TSH3, A1C WT eA #### [place] [address] [place] Platelet mean volume (Bld) [Entitic vol] 8.5 fL Normal 6.6-10.1 [facility] Comment on above: Performed By: #### B 12, T4F, TSH3, A1C WTH eA #### [facility] [address] [place] [address] [place] Platelets (Bld) [#/Vol] 283 10*3/uL Normal 150-450 [facility] Comment on above: Performed By: #### B 12, T4F, TSH3, A1C WTH eA #### [facility] [address] [place] [address] [place] RBC (Bld) [#/Vol] 4.68 10*6/uL Normal 3.90-5.60 [facility] Comment on above: Performed By: #### B 12, T4F, TSH3, A1C WTH eA #### [facility] [address] [place] [address] [place] WBC (Bld) [#/Vol] 5.7 10*3/uL Normal 4.5-11.0 [facility] Comment on above: Performed By: #### B 12, T4F, TSH3, A1C [facility] eA #### [facility] [address] [place] [id number] [facility] Magnesiumon 03-12-2022 Magnesium [Mass/Vol] 2.0 mg/dL Normal 1.6-2.6 [facility] Comment on above: Result Comment: PERF ORMED BY: [place] [address] PATHOLOGIST FORKLIFT TRUCK OPERATOR LUIS FELIPE STARK M.D. Performed By: #### B 12, T4F, TSH3, A1C [facility] eA #### [facility] [address] [place] [address] Vit. B12/Folate Profileon Cobalamin (Vitamin B12) [Mass/Vol] 422 pg/mL Normal 180-914 [facility] Comment on above: Order Comment: Comme nt Please add to previously drawn labs Performed By: #### V [id number] ####[place] [id number] [facility] Folate > 22.3 Normal >5.9 [facility] Comment on above: Order Comment: Comme nt Please add to previously drawn labs Result Comment: Maritza te reference range: >5.9 ng/ml The WHO technical consultation on folate and vitamin b12 deficiencies has determined that folate concentrations less than 4 ng/ml are considered deficient. PERFORMED BY: [place] [address] PATHOLOGIST FORKLIFT TRUCK OPERATOR LUIS FELIPE STARK M.D. Performed By: #### V [id number] ####[place] [id number] [facility] XR chest 1V portableon 03-12 XR chest 1V portable [facility] Main [place] [address] [place], [place] [id number] XRay Report Signed Patient: Yordan Marroquin SR MR#: [id number] : 1945 Acct:[id number] Age/Sex: 76 / M ADM Date: 03/11/22 Loc: Room: 9Y7449-9 Type: ADM INOo Attending Dr: Zaki Cali [...] Laurent Jr., D.ONadia03/12/2022 10:51 AM Dictation Location: [place] [address] Transcribed By: [facility] 03/12/22 1051 Dictated By: Sam Laurent Jr, DO 03/12/22 1046 Signed By: 03/12/[address] [facility] A1C with Estimated Average G [facility] 03-11-2022 Glucose [Mass/Vol] 120 mg/dL Normal [facility] Comment on above: Result Comment: PERF ORMED BY: [place] [address] PATHOLOGIST FORKLIFT TRUCK OPERATOR LUIS FELIPE STARK M.D. Performed By: #### B 12, T4F, TSH3, A1C [facility] eA #### [address] HbA1c (Bld) [Mass fraction] 5.8 % High 4.3-5.6 [facility] Comment on above: Result Comment: Incr eased risk for diabetes: 5.7 - 6.4 diabetes: >6.4 glycemic control for adults with diabetes: <7.0 Performed By: #### B 12, T4F, TSH3, A1C WTH eA #### [address] B-Type Natriuretic Peptideon 03-11-2022 Natriuretic peptide B (Bld) [Mass/Vol] 35.0 pg/mL Normal 5-100 [facility] Comment on above: Result Comment: PERF ORMED BY: [facility] [address] [place] [address] PATHOLOGIST FORKLIFT TRUCK OPERATOR LUIS FELIPE STARK M.D. Performed By: #### C BC, PT, PTT, CMP, BNP, HS TROP ####[facility] [id number] [place] [address] [facility] COVID-19 Antigenon [...] developed and its performance characteristic determined by [employer] and validated at [facility]. This test has not been FDA [...] for SARS Antigen by JENIFER PERFORMED BY: [facility] [address] [place] [address] PATHOLOGIST FORKLIFT TRUCK OPERATOR LUIS FELIPE STARK M.D. Normal [facility] Comment on above: Performed By: #### C OVID-19 SHEBA, SOFIANEG, COVID 19 [facility] #### [facility] [address] [place] [address] [facility] COVID-19 FRMCon 03-11-2022 SARS-CoV-2 (COVID-19) RNA LARISSA+probe Ql (Unsp spec) Negative Normal Negative [facility] Comment on above: Order Comment: Healt hcare Worker?: N Result Comment: Testing for SARS-CoV-2 by RT-PCR This test was developed and its performance characteristics determined by [employer] and validated at the [facility]. This test has not been FDA [...] is terminated or revoked sooner. PERFORMED BY: [facility] [address] [place] [id number] PATHOLOGIST FORKLIFT TRUCK OPERATOR LUIS FELIPE STARK M.D. Performed By: #### C OVID-19 SHEBA, MARIA FERNANDAIANEG, COVID 19 [facility] [place] ####[facility] [id number] [place] [id number] [facility] Complete Blood Count Auto Di ffon 03-11-2022 Basophils (Bld) [#/Vol] 0.1 10*3/uL Normal 0.0-0.2 [facility] Comment on above: Result Comment: PERF ORMED BY: [facility] [address] [place] [id number] PATHOLOGIST FORKLIFT TRUCK OPERATOR LUIS FELIPE STARK M.D. Performed By: #### C BC, PT, PTT, CMP, BNP, HS TROP ####[address] Basophils/100 WBC (Bld) 1.2 % Normal . [facility] Comment on above: Performed By: #### C BC, PT, PTT, CMP, BNP, HS TROP ####[address] Eosinophils (Bld) [#/Vol] 0.4 10*3/uL Normal 0.0-0.45 [facility] Comment on above: Performed By: #### C BC, PT, PTT, CMP, BNP, HS TROP ####[address] Eosinophils/100 WBC (Bld) 5.5 % Normal . [facility] Comment on above: Performed By: #### C BC, PT, PTT, CMP, BNP, HS TROP ####[address] Erythrocyte distribution width (RBC) [Ratio] 13.9 % Normal 12.0-14.8 [facility] Comment on above: Performed By: #### C BC, PT, PTT, CMP, BNP, HS TROP ####[address] Hematocrit (Bld) [Volume fraction] 45.8 % Normal 38.8-50.0 [facility] Comment on above: Performed By: #### C BC, PT, PTT, CMP, BNP, HS TROP ####[address] Hemoglobin (Bld) [Mass/Vol] 15.6 g/dL Normal 13.0-17.0 [facility] Comment on above: Performed By: #### C BC, PT, PTT, CMP, BNP, HS TROP ####[address] Lymphocytes (Bld) [#/Vol] 2.9 10*3/uL Normal 1.00-4.8 [facility] Comment on above: Performed By: #### C BC, PT, PTT, CMP, BNP, HS TROP ####[address] Lymphocytes/100 WBC (Bld) 44.3 % Normal . [facility] Comment on above: Performed By: #### C BC, PT, PTT, CMP, BNP, HS TROP ####[address] MCH (RBC) [Entitic mass] 31.5 pg Normal 27.5-35.2 [facility] Comment on above: Performed By: #### C BC, PT, PTT, CMP, BNP, HS TROP ####[address] MCV (RBC) [Entitic vol] 92.1 fL Normal 83.5-101 [facility] Comment on above: Performed By: #### C BC, PT, PTT, CMP, BNP, HS TROP ####[address] Mean Corpuscular HGB Conc 34.2 g/dL Normal 32.5-35.6 [facility] Comment on above: Performed By: #### C BC, PT, PTT, CMP, BNP, HS TROP ####[address] Monocytes (Bld) [#/Vol] 0.5 10*3/uL Normal 0.0-0.8 [facility] Comment on above: Performed By: #### C BC, PT, PTT, CMP, BNP, HS TROP ####[address] Monocytes/100 WBC (Bld) 8.2 % Normal . [facility] Comment on above: Performed By: #### C BC, PT, PTT, CMP, BNP, HS TROP ####[address] Neutrophils (Bld) [#/Vol] 2.6 10*3/uL Normal 1.8-7.7 [facility] Comment on above: Performed By: #### C BC, PT, PTT, CMP, BNP, HS TROP ####[address] Neutrophils/100 WBC (Bld) 40.8 % Normal . [facility] Comment on above: Performed By: #### C BC, PT, PTT, CMP, BNP, HS TROP ####[address] Nucleated RBC/100 WBC (Bld) [Ratio] 0.2 % Normal 0-0.5 [facility] Comment on above: Performed By: #### C BC, PT, PTT, CMP, BNP, HS TROP ####[address] Platelet mean volume (Bld) [Entitic vol] 8.4 fL Normal 6.6-10.1 [facility] Comment on above: Performed By: #### C BC, PT, PTT, CMP, BNP, HS TROP ####[address] Platelets (Bld) [#/Vol] 325 10*3/uL Normal 150-450 [facility] Comment on above: Performed By: #### C BC, PT, PTT, CMP, BNP, HS TROP ####[address] RBC (Bld) [#/Vol] 4.97 10*6/uL Normal 3.90-5.60 [facility] Comment on above: Performed By: #### C BC, PT, PTT, CMP, BNP, HS TROP ####[address] WBC (Bld) [#/Vol] 6.5 10*3/uL Normal 4.5-11.0 [facility] Comment on above: Performed By: #### C BC, PT, PTT, CMP, BNP, HS TROP ####[address] Comprehensive Metabolic Pane rey 03-11-2022 Albumin [Mass/Vol] 3.7 g/dL Normal 3.2-5.5 [facility] Comment on above: Performed By: #### C BC, PT, PTT, CMP, BNP, HS TROP ####[address] [address] [facility] Albumin/Globulin [Mass ratio] 1.0 {ratio} Normal [facility] Comment on above: Performed By: #### C BC, PT, PTT, CMP, BNP, HS TROP ####[address] [address] [facility] ALP [Catalytic activity/Vol] 46 U/L Normal 32-92 [facility] Comment on above: Performed By: #### C BC, PT, PTT, CMP, BNP, HS TROP ####[place] [id number] [facility] ALT [Catalytic activity/Vol] 21 U/L Normal 10-60 [facility] Comment on above: Performed By: #### C BC, PT, PTT, CMP, BNP, HS TROP ####[place] [id number] [facility] AST [Catalytic activity/Vol] 21 U/L Normal 10-42 [facility] Comment on above: Performed By: #### C BC, PT, PTT, CMP, BNP, HS TROP ####[place] [id number] [facility] Bilirubin [Mass/Vol] 0.5 mg/dL Normal 0.3-1.2 [facility] Comment on above: Performed By: #### C BC, PT, PTT, CMP, BNP, HS TROP ####[place] [id number] [facility] Calcium [Mass/Vol] 9.2 mg/dL Normal 8.2-10.2 [facility] Comment on above: Performed By: #### C BC, PT, PTT, CMP, BNP, HS TROP ####[place] [id number] [place] Chloride [Moles/Vol] 101 mmol/L Normal 95-114 [facility] Comment on above: Performed By: #### C BC, PT, PTT, CMP, BNP, HS TROP ####[address] CO2 [Moles/Vol] 25.6 mmol/L Normal 22.0-30.0 [facility] Comment on above: Performed By: #### C BC, PT, PTT, CMP, BNP, HS TROP ####[address] Creatinine [Mass/Vol] 0.80 mg/dL Normal 0.64-1.27 [facility] Comment on above: Performed By: #### C BC, PT, PTT, CMP, BNP, HS TROP ####[address] Creatinine Clr Calc Pharmacy 95.36 [facility] Comment on above: Result Comment: PERF ORMED BY: [facility] [address] [place] [address] PATHOLOGIST FORKLIFT TRUCK OPERATOR LUIS FELIPE STARK M.D. Performed By: #### C BC, PT, PTT, CMP, BNP, HS TROP ####[address] Estimated GFR ( Naz > 60 [facility] Comment on above: Result Comment: GFR estimated reference range: According to KDOQI guidelines, <60 ml/min/1.73m2 is sufficient to diagnose a patient with chronic kidney disease. Performed By: #### C BC, PT, PTT, CMP, BNP, HS TROP ####[address] Estimated GFR (Non- Am > 60 [facility] Comment on above: Performed By: #### C BC, PT, PTT, CMP, BNP, HS TROP ####[address] Globulin (S) [Mass/Vol] 3.8 g/dL [facility] Comment on above: Performed By: #### C BC, PT, PTT, CMP, BNP, HS TROP ####[place] [address] [place] [address] [facility] Glucose [Mass/Vol] 95 mg/dL Normal 70-100 [facility] Comment on above: Result Comment: [place] Glucose Reference Range is dependent on time and content of last meal. Glucose of more than 200 mg/dL in a nonstressed, ambulatory subject supports the diagnosis of Diabetes Mellitus. ADA recommended reference range Performed By: #### C BC, PT, PTT, CMP, BNP, HS TROP ####[place] [address] [place] [address] [facility] Potassium [Moles/Vol] 4.1 mmol/L Normal 3.5-5.1 [facility] Comment on above: Performed By: #### C BC, PT, PTT, CMP, BNP, HS TROP ####[place] [address] [place] [id number] [facility] Protein [Mass/Vol] 7.5 g/dL Normal 6.1-7.9 [facility] Comment on above: Performed By: #### C BC, PT, PTT, CMP, BNP, HS TROP ####[place] [phone] [facility] Sodium [Moles/Vol] 137 mmol/L Normal 136-146 [facility] Comment on above: Performed By: #### C BC, PT, PTT, CMP, BNP, HS TROP ####[place] [address] [place] [phone] [facility] Urea nitrogen [Mass/Vol] 14 mg/dL Normal 9-23 [facility] Comment on above: Performed By: #### C BC, PT, PTT, CMP, BNP, HS TROP ####[place] [id number] [place] [id number] [place] Dipstick and Microscopicon 0 03-11-2022 Appearance (U) Cloudy Critically abnormal Clear [facility] Comment on above: Order Comment: Name Collection Type:: Clean-Voided Midstream Performed By: #### A DDONUAPLUS #### [facility] [address] [place] [id number] [place] Bacteria,Urine None Seen Normal None Seen [facility] Comment on above: Order Comment: Name Collection Type:: Clean-Voided Midstream Performed By: #### A DDONUAPLUS #### [place] [address] [place] Bilirubin,Urine Negative Normal Negative [facility] Comment on above: Order Comment: Name Collection Type:: Clean-Voided Midstream Performed By: #### A DDONUAPLUS #### [place] [address] [place] Color (U) Yellow Normal Yellow [facility] Comment on above: Order Comment: Name Collection Type:: Clean-Voided Midstream Performed By: #### A DDONUAPLUS #### [address] Glucose Ql (U) Normal Normal Normal [facility] Comment on above: Order Comment: Name Collection Type:: Clean-Voided Midstream Performed By: #### A DDONUAPLUS #### [place] [address] [place] Hyaline Casts,Urine None Seen Normal 0-8 [facility] Comment on above: Order Comment: Name Collection Type:: Clean-Voided Midstream Result Comment: PERF ORMED BY: [place] [address] PATHOLOGIST FORKLIFT TRUCK OPERATOR LUIS FELIPE STARK M.D. Performed By: #### A DDONUAPLUS #### [facility] [address] [place] [address] [place] Ketones Ql (U) Negative Normal Negative [facility] Comment on above: Order Comment: Name Collection Type:: Clean-Voided Midstream Performed By: #### A DDONUAPLUS #### [place] [address] [place] Leukocyte esterase Test strip Ql (U) Negative Normal Negative [facility] Comment on above: Order Comment: Name Collection Type:: Clean-Voided Midstream Performed By: #### A DDONUAPLUS #### [place] [address] [place] Nitrite,Urine Negative Normal Negative [facility] Comment on above: Order Comment: Name Collection Type:: Clean-Voided Midstream Performed By: #### A DDONUAPLUS #### [address] Occult Blood,Urine Negative Normal Negative [facility] Comment on above: Order Comment: Name Collection Type:: Clean-Voided Midstream Result Comment: PERF ORMED BY: [place] [address] PATHOLOGIST FORKLIFT TRUCK OPERATOR LUIS FELIPE STARK M.D. Performed By: #### A DDONUAPLUS #### [address] pH (U) 6.5 [pH] Normal 5.0-9.0 [facility] Comment on above: Order Comment: Name Collection Type:: Clean-Voided Midstream Performed By: #### A DDONUAPLUS #### [address] Protein,Urine Negative Normal Negative [facility] Comment on above: Order Comment: Name Collection Type:: Clean-Voided Midstream Performed By: #### A DDONUAPLUS #### [address] RBC LM.HPF (Urine sed) [#/Area] 0 /[HPF] Normal 0-4 [facility] Comment on above: Order Comment: Name Collection Type:: Clean-Voided Midstream Performed By: #### A DDONUAPLUS #### [address] Specificy [place],Urine 1.026 Normal 1.001-1.030 [facility] Comment on above: Order Comment: Name Collection Type:: Clean-Voided Midstream Performed By: #### A DDONUAPLUS #### [address] Squamous Epithelial Cell,Urine None Seen Normal 0-2 [facility] Comment on above: Order Comment: Name Collection Type:: Clean-Voided Midstream Performed By: #### A DDONUAPLUS #### [facility] [address] Urobilinogen,Urine Normal Normal Normal [facility] Comment on above: Order Comment: Name Collection Type:: Clean-Voided Midstream Performed By: #### A DDONUAPLUS #### [facility] [address] WBC LM.HPF (Urine sed) [#/Area] 0 /[HPF] Normal 0-4 [facility] Comment on above: Order Comment: Name Collection Type:: Clean-Voided Midstream Performed By: #### A DDONUAPLUS #### [facility] [address] [place] [address] ECG 12 lead ECGon 03-11-2022 ECG 12 lead ECG [facility] Main [place] [address] [place] [address] Electrocardiograph Report Signed Patient: Yordan Marroquin SR MR#: [id number] : 1945 Acct:[id number] Age/Sex: 76 / M ADM Date: 03/11/22 Loc: Room: [address] [place] [address] Type: DIS INOo Attending Dr: Kyler Wood [...] ECGs available Confirmed by Willy Topete DO ([id number]) on 03/11/2022 8:32:24 PM Referred By: Electronically Signed By:Willy Topete DO Transcribed By: MUS Signed By Willy Topete DO [address] [facility] Free T4 (Free Thyroxine)on 0 03-11-2022 Free T4 [Mass/Vol] 0.66 ng/dL Normal 0.61-1.12 [facility] Comment on above: Performed By: #### B 12, T4F, TSH3, A1C WTH eA #### [facility] [address] [place] [id number] [facility] Glucose Poct Glucometerson 0 03-11-2022 Glucose [Mass/Vol] 90 mg/dL Normal [facility] Comment on above: Result Comment: [place] Glucose Reference Range is dependent on time and content of last meal. Glucose of more than 200 mg/dL in a nonstressed, ambulatory subject supports the diagnosis of Diabetes Mellitus. PERFORMED BY: [place] [address] PATHOLOGIST FORKLIFT TRUCK OPERATOR LUIS FELIPE STARK M.D. Performed By: #### G LULS ####Point of Care testing, ISTAT XRay CREon 03-11-2022 Creatinine [Mass/Vol] 0.8 mg/dL Normal 0.6-1.3 [facility] Comment on above: Result Comment: ER/E SD physician is notified/shown all ISTAT results. Critical values may be confirmed by laboratory testing if deemed necessary by ER attending doctor. Performed By: #### I SCRE ####[facility] [address] [place] [address] USAPoint of Care testing, ISTAT GFR ( > [address] [facility] Comment on above: Result Comment: GFR estimated reference range: According to KDOQI guidelines, <60 ml/min/1.73m2 is sufficient to diagnose a patient with chronic kidney disease. PERFORMED BY: [place] [id number] PATHOLOGIST FORKLIFT TRUCK OPERATOR LUIS FELIPE STARK M.D. Performed By: #### I SCRE ####[facility] [id number] [place] [address] USAPoint of Care testing, ISTAT GFR (Non- Am > [address] [facility] Comment on above: Performed By: #### I SCRE ####[address] [address] USAPoint of Care testing, Partial Thromboplastin Timeo n 03-11-2022 aPTT Coag (Bld) [Time] 30.0 s Normal 25.1-36.5 [facility] Comment on above: Result Comment: PERF ORMED BY: [address] [place] [address] PATHOLOGIST FORKLIFT TRUCK OPERATOR LUIS FELIPE STARK M.D. Performed By: #### C BC, PT, PTT, CMP, BNP, HS TROP ####[address] Prothrombin Time INRon 03-11 INR Coag (PPP) [Relative time] 1.0 {INR} Normal [facility] Comment on above: Result Comment: INR [...] BC, PT, PTT, CMP, BNP, HS TROP ####[address] PT Coag (PPP) [Time] 11.0 s Normal 9.0-12.9 [facility] Comment on above: Performed By: #### C BC, PT, PTT, CMP, BNP, HS TROP ####[address] [place] Ag Negativeon 03-11-20 [place] Ag Negative Negative Normal Negative [facility] Comment on above: Result Comment: This is a duplicate [place] SARS Antigen (JENIFER) result to be used for statistical tracking purpose only. PERFORMED BY: [address] [place] [address] PATHOLOGIST FORKLIFT TRUCK OPERATOR LUIS FELIPE STARK M.D. Performed By: #### C OVID-19 SHEBA, SOFIANEG, COVID 19 [facility] [place] #### [place] [id number] [place] Thyroid Stimulating Hormoneo n 03-11-2022 TSH Qn 2.65 m[IU]/L Normal 0.45-5.33 [facility] Comment on above: Result Comment: PERF ORMED BY: [place] [address] PATHOLOGIST FORKLIFT TRUCK OPERATOR LUIS FELIPE STARK M.D. Performed By: #### B 12, T4F, TSH3, A1C WTH eA #### [place] [id number] [facility] Troponin I High Sensitivityo n 03-11-2022 Troponin I High Sensitivity 3 pg/mL Normal 0-20 [facility] Comment on above: Result Comment: PERF ORMED BY: [place] [address] PATHOLOGIST FORKLIFT TRUCK OPERATOR LUIS FELIPE STARK M.D. Performed By: #### C BC, PT, PTT, CMP, BNP, HS TROP ####[facility] [place] [id number] [facility] Vitamin B12on 03-11-2022 Cobalamin (Vitamin B12) [Mass/Vol] 468 pg/mL Normal 180-914 [facility] Comment on above: Performed By: #### B 12, T4F, TSH3, A1C [facility] eA #### [place] [id number] [facility] COVID Quick Testingon 2020 Result Negative [employer] Other PROGRESSon 06-14-2020 PROGRESS HNO ID: [id number] Author: Interface Note Service: ? Author Type: ? Type: Progress Notes Filed: 06/14/2020 11:07 AM Note Text: The surgical encounter documentation contains information performed by a different Karen Cedeño than is indicated by the provider record. Clinical care was provided and documented by the correct provider. [facility] CNOVon 07-02-2019 CNOV Office Visit (NRESFV) ---- YORDAN MARROQUIN ([id number]) 1945 M Date Time Provider Department 07/02/19 1:30 PM MAREK RAND NRESFV During your visit today, we recorded the following information about you: Temperature Pulse Respiration Blood pressure 97.3 degrees 66/minute 18/minute 134/60 Weight Height 96.9 kg 1.88 m Marek Rand DO 07/02/2019 2:05 PM Signed [facility] Neurotoxin Visit ? Date: July 02, 2019 Name: Yordan Marroquin ? Historical/ Initial Dose ? Diagnosis: Cervical dystonia (G24.3) Date of Diagnosis: 2011 Date of Treatment: March 25, 2019 Type of Neurotoxin: [...] INFORMED CONSENT ? Yordan Marroquin Medical Record: [id number] ? Procedure: bilateral cervical muscle injections with [...] 1:43 PM ? ? Dept of NEUROLOGICAL EVANGELICAL ? UNIVERSAL PROTOCOL / SAFETY CHECKLIST ? [...] guidance: Yes Injection Site: Cervical dystonia: CPT 80053 ? ? Left Right Sternocleidomastoid ? ? Splenius capitus 30 30 Scalene ? ? Levator Scapulae ? ? Trapezius ? ? Semispinalis 30 30 Occipitalis 30 30 ? Lot#: [id number] Exp Date 10/2021 ? ? ? Future plan of care: Follow up: 3 months Neurotoxin Change: No Dose Change: No Initial injections previously - no ineffective with no ADRs. Will increase dose Referring Provider: MAREK RAND [[id number]] Allergies As of Date: 07/02/2019 Noted Allergy [...] * FLUTICASONE PROPIONATE 50 MCG* Use 1 [place] in each nostril o* DOCUSATE SODIUM 100 [...] Status:Closed by MAREK RAND DO on 07/02/19 [facility] PROGRESSon 07-02-2019 PROGRESS HNO ID: [id number] Author: Marek Rand Service: ? Author Type: Physician Type: Progress Notes Filed: 07/02/2019 2:05 PM Note Text: [facility] Neurotoxin Visit ? Date: July [...] INFORMED CONSENT ? Yordan Marroquin Medical Record: [id number] ? Procedure: bilateral cervical muscle injections with [...] I verify that I personally obtained Yordan Horta Robimihir's consent. ? Marek Rand DO July 02, 2019 1:43 PM ? ? Dept of NEUROLOGICAL EVANGELICAL ? UNIVERSAL PROTOCOL / SAFETY CHECKLIST ? [...] guidance: Yes Injection Site: Cervical dystonia: CPT 35712 ? ? Left Right Sternocleidomastoid ? ? Splenius capitus 30 30 Scalene ? ? Levator Scapulae ? ? Trapezius ? ? Semispinalis 30 30 Occipitalis 30 30 ? Lot#: [id number] Exp Date 10/2021 ? ? ? Future plan of care: Follow up: 3 months Neurotoxin Change: No Dose Change: No Initial injections previously - no ineffective with no ADRs. Will increase dose Normal [facility] Vital Signs Date Time Vital Sign Value Performing Clinician Facility 04-22-2024 14:20-0400 Body height 188 cm Mila Andino APRN.CNP Work Phone: [facility] 04-22-2024 14:20-0400 Body mass index (BMI) [Ratio] 27.6 kg/m2 Mila Andino APRN.METAL OFF BEARER Work Phone: [facility] 04-22-2024 14:20-0400 Body weight 97.5 kg Mila Andino APRN.METAL OFF BEARER Work Phone: [facility] 04-22-2024 14:20-0400 Diastolic blood pressure 57 mm[Hg] Mila Andino APRN.METAL OFF BEARER Work Phone: [facility] 04-22-2024 14:20-0400 Heart rate 60 /min Mila Andino APRN.METAL OFF BEARER Work Phone: [facility] 04-22-2024 14:20-0400 SaO2% (BldA) [Mass fraction] 97 % Mila Andino APRN.METAL OFF BEARER Work Phone: [facility] 04-22-2024 14:20-0400 Systolic blood pressure 116 mm[Hg] Mila Andino APRN.METAL OFF BEARER Work Phone: [facility] 03-04-2024 13:22-0400 Body height 188 cm Mila Andino APRN.METAL OFF BEARER Work Phone: [facility] 03-04-2024 13:22-0400 Body mass index (BMI) [Ratio] 27.82 kg/m2 Mila Andino APRN.METAL OFF BEARER Work Phone: [facility] 03-04-2024 13:22-0400 Body weight 98.3 kg Mila Andino APRN.METAL OFF BEARER Work Phone: [facility] 03-04-2024 13:22-0400 Diastolic blood pressure 65 mm[Hg] Mila Andino APRN.METAL OFF BEARER Work Phone: [facility] 03-04-2024 13:22-0400 Heart rate 62 /min Mila Andino BEREAVEMENT COUNSELOR.METAL OFF BEARER Work Phone: [facility] 03-04-2024 13:22-0400 SaO2% (BldA) [Mass fraction] 97 % Mila Andino APRN.METAL OFF BEARER Work Phone: [facility] 03-04-2024 13:22-0400 Systolic blood pressure 113 mm[Hg] Mila Andino APRN.METAL OFF BEARER Work Phone: [facility] 09-04-2023 10:30-0400 Body height 188 cm Mila Andino BEREAVEMENT COUNSELOR.METAL OFF BEARER Work Phone: [facility] 09-04-2023 10:30-0400 Body weight 95.07 kg Mila Andino APRN.METAL OFF BEARER Work Phone: [facility] 09-04-2023 10:30-0400 Diastolic blood pressure 69 mm[Hg] Mila Andino BEREAVEMENT COUNSELOR.METAL OFF BEARER Work Phone: [facility] 09-04-2023 10:30-0400 Heart rate 63 /min Mila Andino APRN.METAL OFF BEARER Work Phone: [facility] 09-04-2023 10:30-0400 SaO2% (BldA) [Mass fraction] 95 % Mila Andino APRN.METAL OFF BEARER Work Phone: [facility] 09-04-2023 10:30-0400 Systolic blood pressure 129 mm[Hg] Mila Andino APRN.METAL OFF BEARER Work Phone: [facility] 04-01-2023 11:50-0400 Body height 184.15 cm Krystina Shell Other [employer] Other 04-01-2023 11:50-0400 Body mass index (BMI) [Ratio] 26.76 kg/m2 Krystina Shell Other [employer] Other 04-01-2023 11:50-0400 Body temperature 97.5 [degF] Krystina Shell Other [employer] Other 04-01-2023 11:50-0400 Body weight 90.77 kg Krystina Shell Other [employer] Other 04-01-2023 11:50-0400 Diastolic blood pressure 92 mm[Hg] Krystina Shell Other [employer] Other 04-01-2023 11:50-0400 Respiratory rate 18 /min Krystina Shell Other [employer] Other 04-01-2023 11:50-0400 SaO2% (BldA) [Mass fraction] 94 % Krystina Shell Other [employer] Other 04-01-2023 11:50-0400 Systolic blood pressure 140 mm[Hg] Krystina Shell Other [facility] [employer] Other 02-08-2023 12:36-0400 Body height 188 cm Mila Andino BEREAVEMENT COUNSELOR.METAL OFF BEARER Work Phone: [facility] 02-08-2023 12:36-0400 Body weight 94.39 kg Mila Andino BEREAVEMENT COUNSELOR.METAL OFF BEARER Work Phone: [facility] 02-08-2023 12:36-0400 Diastolic blood pressure 65 mm[Hg] Mila Andino BEREAVEMENT COUNSELOR.METAL OFF BEARER Work Phone: [facility] 02-08-2023 12:36-0400 Heart rate 72 /min Mila Andino BEREAVEMENT COUNSELOR.METAL OFF BEARER Work Phone: [facility] 02-08-2023 12:36-0400 SaO2% (BldA) [Mass fraction] 97 % Mila Andino BEREAVEMENT COUNSELOR.METAL OFF BEARER Work Phone: [facility] 02-08-2023 12:36-0400 Systolic blood pressure 106 mm[Hg] Mila Andino BEREAVEMENT COUNSELOR.METAL OFF BEARER Work Phone: [facility] 11-09-2022 12:13-0500 Body height 188 cm Mila Andino BEREAVEMENT COUNSELOR.METAL OFF BEARER Work Phone: [facility] 11-09-2022 12:13-0500 Body weight 94.39 kg Mila Andino BEREAVEMENT COUNSELOR.METAL OFF BEARER Work Phone: [facility] 11-09-2022 12:13-0500 Diastolic blood pressure 76 mm[Hg] Mila Andino BEREAVEMENT COUNSELOR.METAL OFF BEARER Work Phone: [facility] 11-09-2022 12:13-0500 Heart rate 72 /min Mila Andino BEREAVEMENT COUNSELOR.METAL OFF BEARER Work Phone: [facility] 11-09-2022 12:13-0500 SaO2% (BldA) [Mass fraction] 97 % Mila Andino BEREAVEMENT COUNSELOR.METAL OFF BEARER Work Phone: [facility] 11-09-2022 12:13-0500 Systolic blood pressure 115 mm[Hg] Mila Sina JOHNSONMETAL OFF BEARER Work Phone: [facility] 10-17-2022 10:20-0500 Body height 184.15 cm Tyler Ulrich Other [employer] Other 10-17-2022 10:20-0500 Body mass index (BMI) [Ratio] 28.89 kg/m2 Tyler Ulrich Other [employer] Other 10-17-2022 10:20-0500 Body temperature 98.5 [degF] Tyler Ulrich Other [employer] Other 10-17-2022 10:20-0500 Body weight 97.98 kg Tyler Ulrich Other [employer] Other 10-17-2022 10:20-0500 Diastolic blood pressure 77 mm[Hg] Tyler Ulrich Other [employer] Other 10-17-2022 10:20-0500 Respiratory rate 18 /min Tyler Ulrich Other [employer] Other 10-17-2022 10:20-0500 SaO2% (BldA) [Mass fraction] 96 % Tyler Ulrich Other [employer] Other 10-17-2022 10:20-0500 Systolic blood pressure 120 mm[Hg] Tyler Ulrich Other [employer] Other 08-10-2022 10:39-0400 Body weight 95.25 kg Stacy Jones MD Work Phone: [facility] 08-10-2022 10:39-0400 Diastolic blood pressure 82 mm[Hg] Stacy Jones MD Work Phone: [facility] 08-10-2022 10:39-0400 Heart rate 69 /min Stacy Jones MD Work Phone: [facility] 08-10-2022 10:39-0400 SaO2% (BldA) [Mass fraction] 98 % Stacy Jones MD Work Phone: [facility] 08-10-2022 10:39-0400 Systolic blood pressure 120 mm[Hg] Stacy Jones MD Work Phone: [facility] 05-02-2022 11:45-0400 Body height 188 cm Mila Andino BEREAVEMENT COUNSELOR.METAL OFF BEARER Work Phone: [facility] 05-02-2022 11:45-0400 Body weight 94.26 kg Mila Andino BEREAVEMENT COUNSELOR.METAL OFF BEARER Work Phone: [facility] 05-02-2022 11:45-0400 Diastolic blood pressure 75 mm[Hg] Mila Andino BEREAVEMENT COUNSELOR.METAL OFF BEARER Work Phone: [facility] 05-02-2022 11:45-0400 Heart rate 63 /min Mila Andino BEREAVEMENT COUNSELOR.METAL OFF BEARER Work Phone: [facility] 05-02-2022 11:45-0400 SaO2% (BldA) [Mass fraction] 99 % Mila Andino BEREAVEMENT COUNSELOR.METAL OFF BEARER Work Phone: [facility] 05-02-2022 11:45-0400 Systolic blood pressure 129 mm[Hg] Mila Andino BEREAVEMENT COUNSELOR.METAL OFF BEARER Work Phone: [facility] 05-02-2022 11:07-0400 Body height 188 cm Stacy Jones MD Work Phone: [facility] 05-02-2022 11:07-0400 Body weight 94.12 kg Stacy Jones MD Work Phone: [facility] 05-02-2022 11:07-0400 Diastolic blood pressure 75 mm[Hg] Stacy Jones MD Work Phone: [facility] 05-02-2022 11:07-0400 Heart rate 63 /min Stacy Jones MD Work Phone: [facility] 05-02-2022 11:07-0400 SaO2% (BldA) [Mass fraction] 99 % Stacy Jones MD Work Phone: [facility] 05-02-2022 11:07-0400 Systolic blood pressure 129 mm[Hg] Stacy Jones MD Work Phone: [facility] 01-16-2022 10:15-0400 Body height 184.15 cm Ny Schwerer Other [employer] Other 01-16-2022 10:15-0400 Body mass index (BMI) [Ratio] 28.89 kg/m2 Ny Schwerer Other [employer] Other 01-16-2022 10:15-0400 Body temperature 97.7 [degF] Ny Schwerer Other [employer] Other 01-16-2022 10:15-0400 Body weight 97.98 kg Ny Schwerer Other [employer] Other 01-16-2022 10:15-0400 Diastolic blood pressure 78 mm[Hg] Ny Schwerer Other [employer] Other 01-16-2022 10:15-0400 SaO2% (BldA) [Mass fraction] 96 % Ny Schwerer Other [employer] Other 01-16-2022 10:15-0400 Systolic blood pressure 122 mm[Hg] Ny Schwerer Other [employer] Other 10-18-2021 11:45-0500 Body height 184.15 cm Ny Schwerer Other [employer] Other 10-18-2021 11:45-0500 Body mass index (BMI) [Ratio] 28.61 kg/m2 Ny Schwerer Other [employer] Other 10-18-2021 11:45-0500 Body temperature 98.4 [degF] Ny Schwerer Other [employer] Other 10-18-2021 11:45-0500 Body weight 97.03 kg Ny Schwerer Other [employer] Other 10-18-2021 11:45-0500 Diastolic blood pressure 72 mm[Hg] Ny Schwerer Other [employer] Other 10-18-2021 11:45-0500 SaO2% (BldA) [Mass fraction] 95 % Ny Schwerer Other [employer] Other 10-18-2021 11:45-0500 Systolic blood pressure 126 mm[Hg] Ny Schwerer Other [employer] Other 09-11-2021 12:30-0500 Body height 184.15 cm Young Dean Other [employer] Other 09-11-2021 12:30-0500 Body mass index (BMI) [Ratio] 28.09 kg/m2 Young Dean Other [employer] Other 09-11-2021 12:30-0500 Body temperature 97.6 [degF] Young Dean Other [employer] Other 09-11-2021 12:30-0500 Body weight 95.26 kg Young Dean Other [employer] Other 09-11-2021 12:30-0500 Diastolic blood pressure 91 mm[Hg] Young Dean Other [employer] Other 09-11-2021 12:30-0500 SaO2% (BldA) [Mass fraction] 97 % Young Dean Other [employer] Other 09-11-2021 12:30-0500 Systolic blood pressure 132 mm[Hg] Young Dean Other [employer] Other Encounters Encounter Date Encounter Type Care Provider Facility Start: 06-17-2024 End: 06-17-2024 ambulatory RUGEN M SHAYY Not Available Start: 06-05-2024 End: 06-05-2024 ambulatory ELIEZER EVONNE Not Available Start: 06-02-2024 End: 06-02-2024 ambulatory ROSHAN VELASQUEZJAYASHREE Not Available Start: 05-29-2024 End: 05-29-2024 ambulatory ELIEZER EVONNE Not Available Start: 05-27-2024 End: 05-27-2024 ambulatory ELIEZER EVONNE Not Available Start: 05-22-2024 End: 05-22-2024 ambulatory LUPIS MARILEEY Not Available Start: 05-14-2024 End: 05-14-2024 ambulatory CHRISTINA HALE Not Available Start: 05-09-2024 End: 05-09-2024 ambulatory ELIEZER EVONNE Not Available Start: 05-06-2024 End: 05-06-2024 ambulatory LUPIS MARILEEY Not Available Start: 05-05-2024 End: 05-05-2024 ambulatory RUGEN M SHAYY Not Available Start: 04-30-2024 End: 04-30-2024 ambulatory LAWSON YOUSIF Not Available Start: 04-22-2024 End: 04-22-2024 ambulatory MILA ANDINO Facility:[facility] Start: 04-22-2024 End: 04-22-2024 Patient encounter procedure Mila Andino APRN.CNP Work Phone: Neurology Comment on above: Essential tremor (Pr imary Dx); S/P deep brain stimulator placement Start: 04-09-2024 Telephone encounter Mila mejia APRN.[employer]AL OFF BEARER Work Phone: Neurology Comment on above: Appointment Start: 03-05-2024 Telephone encounter Mila mejia APRN.[employer] OFF BEARER Work Phone: [facility]rological [facility] Comment on above: Results (Labs) Start: 03-04-2024 End: 03-04-2024 ambulatory [facility] Facility:[facility] Start: 03-04-2024 End: 03-04-2024 Patient encounter procedure Mila Andino APRN.METAL OFF BEARER Work Phone: Neurology Comment on above: Essential tremor (Pr imary Dx); S/P deep brain stimulator placement; Anxiety; Abnormality of gait; Cognitive impairment; Vitamin D deficiency Start: 01-31-2024 End: 01-31-2024 ambulatory CHRISTINA Mary GEOFFREY Not Available Start: 01-01-2024 End: 01-01-2024 ambulatory RASHEED LUCSA Not Available Start: 11-29-2023 End: 11-29-2023 ambulatory PERLA CRUZ Not Available Start: 11-21-2023 Daniel Carrasco MD Work Phone: [facility] Comment on above: Arthritis; Vitamin D deficiency Start: 09-04-2023 End: 09-04-2023 Patient encounter procedure Mila Andino APRN.[employer]AL OFF BEARER Work Phone: Neurology Comment on above: Essential tremor (Pr imary Dx); Anxiety; S/P deep brain stimulator placement Start: 09-04-2023 End: 09-04-2023 [facility] Start: 04-11-2023 Telephone encounter Mila mejia APRN.[employer] OFF BEARER Work Phone: Neurology Comment on above: Appointment Start: 04-05-2023 Telephone encounter Mila mejia APRN.[employer] OFF BEARER Work Phone: Neurological [facility] Comment on above: Symptom Management Start: 04-01-2023 End: 04-01-2023 ambulatory Krystina Goff Other [employer] Other Start: 04-01-2023 Office outpatient vi sit 15 minutes Krystina Goff [facility] Start: 02-08-2023 End: 02-08-2023 Patient encounter procedure Mila Andino APRN.[employer]AL OFF BEARER Work Phone: Neurology Comment on above: Essential tremor (Pr imary Dx); S/P deep brain stimulator placement; Anxiety Start: 11-09-2022 End: 11-09-2022 Patient encounter procedure Mila Andino APRN.[employer]AL OFF BEARER Work Phone: Neurology Comment on above: Essential tremor (Pr imary Dx); S/P deep brain stimulator placement; Anxiety APPOINTMENT CANCELLE D (Primary Dx) Start: 10-17-2022 End: 10-17-2022 ambulatory Tyler Ulrich Other [employer] Other Start: 10-17-2022 Office outpatient vi sit 15 minutes Tyler Ulrich [facility] Start: 08-10-2022 End: 08-10-2022 Patient encounter procedure Stacy Jones MD Work Phone: Neurology Comment on above: Cervical dystonia (P rimary Dx) Start: 05-02-2022 End: 05-02-2022 Patient encounter procedure Stacy Jones MD Work Phone: Neurology Comment on above: Cervical dystonia (P rimary Dx) Anxiety (Primary Dx) ; Essential tremor; S/P deep brain stimulator placement Start: 04-20-2022 End: 04-21-2022 ambulatory Shayla Mirza Facility:[facility] Start: 03-22-2022 Telephone encounter Mila mejia APRN.[employer] OFF BEARER Work Phone: Neurological [facility] Comment on above: Patient Request Start: 03-11-2022 End: 03-13-2022 ambulatory Kyler Wood Facility:[facility] Start: 02-15-2022 End: 02-15-2022 ambulatory Ny Schwerer Other [employer] Other Start: 02-15-2022 Telephone encounter Ny Schwerer [facility] Start: 02-09-2022 End: 02-09-2022 ambulatory Ny Schwerer Other [employer] Other Start: 02-09-2022 Telephone encounter Ny Schwerer [facility] Start: 01-16-2022 End: 01-16-2022 ambulatory Ny Schwerer Other [employer] Other Start: 01-16-2022 Office outpatient vi sit 10 minutes Ny Schwerer [facility] Start: 12-19-2021 End: 12-19-2021 ambulatory Ny Schwerer Other [employer] Other Start: 12-19-2021 Telephone encounter Ny Schwerer [facility] Start: 2021 End: 2021 ambulatory Ny Schwerer Other [employer] Other Start: 2021 Telephone encounter Ny Schwerer [facility] Start: 10-18-2021 End: 10-18-2021 ambulatory Ny Schwerer Other [employer] Other Start: 10-18-2021 Office outpatient vi sit 25 minutes Ny Schwerer [facility] Start: 09-11-2021 End: 09-11-2021 ambulatory Young Dean Other [employer] Other Start: 09-11-2021 Office outpatient vi sit 15 minutes Young Dean [facility] [address] Start: 08-15-2018 End: 08-15-2018 Patient encounter RIGO MARTIN Facility:[facility] Start: 04-06-2017 End: 04-07-2017 Ambulatory LUAN DUMONT Facility:[facility] Procedures Date Procedure Procedure Detail Performing Clinician Start: 07-19-2023 Adult depression screening assessment Jun Carrasco MD Work Phone: Start: 05-02-2022 Adult depression screening assessment Stacy Jones MD Work Phone: Start: 10-06-2021 Adult depression screening assessment Mila Andino BEREAVEMENT COUNSELOR.METAL OFF BEARER Work Phone: Start: 02-29-2016 H/O: surgery S/P deep brain stimulator placement Mila Sina BEREAVEMENT COUNSELOR.METAL OFF BEARER Work Phone: H/O: surgery S/P deep brain stimulator placement Mila Sina BEREAVEMENT COUNSELOR.METAL OFF BEARER Work Phone: H/O: surgery S/P deep brain stimulator placement Mila Sina BEREAVEMENT COUNSELOR.METAL OFF BEARER Work Phone: H/O: surgery S/P deep brain stimulator placement Mila Sina BEREAVEMENT COUNSELOR.METAL OFF BEARER Work Phone: H/O: surgery S/P deep brain stimulator placement Mila Sina BEREAVEMENT COUNSELOR.METAL OFF BEARER Work Phone: H/O: surgery S/P deep brain stimulator placement Mila Sina BEREAVEMENT COUNSELOR.METAL OFF BEARER Work Phone: H/O: surgery S/P deep brain stimulator placement Mila Sina BEREAVEMENT COUNSELOR.METAL OFF BEARER Work Phone: Plan of Treatment Date Care Activity Detail Author Start: 06-29-2026 Diabetes Screening Diabetes Screenin g [facility] Start: 11-21-2024 DIABETES SCREEN DIABETES SCREEN [facility] Start: 09-06-2024 Adult BMI Screening Adult BMI Screen ing [facility] Start: 09-06-2024 Tobacco Screening Tobacco Screening [facility] Start: 08-18-2024 End: 08-18-2024 Patient encounter procedure 08/18/2024 8:30 AM EDT Office Visit [facility] [address] [place] [address] [place] [id number] Jun Carrasco MD [address] [place] [address] [facility] Start: 07-19-2024 Depression Screening Depression Scre ening [facility] Start: 07-19-2024 Fall Risk Screening Fall Risk Screen ing [facility] Start: 07-19-2024 Medicare Annual Well ness Visit Medicare Annual Wellness Visit [facility] Start: 07-06-2024 Influenza vaccination Influenz a Vaccine (Season Ended) [facility] Start: 04-09-2024 End: 04-09-2024 Patient encounter procedure 04/09/2024 3:00 PM EDT Office Visit Neurology [address] [id number] Mila Andino, BEREAVEMENT COUNSELOR.METAL OFF BEARER [address] [place] [address] DBS adjustment Neurology Comment on above: DBS adjustment Start: 03-04-2024 End: 06-03-2024 25-hydroxyvitamin D3 [Mass/volume] in Serum or Plasma VITAMIN D 25 HYDROXY Lab Routine Anxiety Cognitive impairment Vitamin D deficiency Expected: 03/04/2024, Expires: 06/03/2024 [facility] Comment on above: Expected: 03/04/2024 , Expires: 06/03/2024 Start: 03-04-2024 End: 06-03-2024 CBC W Auto Differential panel - Blood COMPLETE BLOOD COUNT AND DIFFERENTIAL Lab Routine Anxiety Abnormality of gait Cognitive impairment Expected: 03/04/2024, Expires: 06/03/2024 [facility] Comment on above: Expected: 03/04/2024 , Expires: 06/03/2024 Start: 03-04-2024 End: 06-03-2024 Comprehensive metabolic 2000 panel - Serum or Plasma COMPREHENSIVE METABOLIC PANEL Lab Routine Essential tremor Anxiety Abnormality of gait Cognitive impairment Expected: 03/04/2024, Expires: 06/03/2024 [facility] Comment on above: Expected: 03/04/2024 , Expires: 06/03/2024 Start: 03-04-2024 End: 06-03-2024 Folate [Mass/volume] in Serum or Plasma FOLATE, SERUM Lab Routine Anxiety Abnormality of gait Cognitive impairment Expected: 03/04/2024, Expires: 06/03/2024 [facility] Comment on above: Expected: 03/04/2024 , Expires: 06/03/2024 Start: 03-04-2024 End: 06-03-2024 Thyrotropin [Units/volume] in Serum or Plasma THYROID STIMULATING HORMONE Lab Routine Anxiety Cognitive impairment Expected: 03/04/2024, Expires: 06/03/2024 [facility] Comment on above: Expected: 03/04/2024 , Expires: 06/03/2024 Start: 03-04-2024 End: 06-03-2024 VITAMIN B12 W/REFLEX VITAMIN B12 W/REFLEX Lab Routine Anxiety Abnormality of gait Cognitive impairment Expected: 03/04/2024, Expires: 06/03/2024 [facility] Work Phone: Comment on above: Expected: 03/04/2024 , Expires: 06/03/2024 Start: 12-27-2023 Covid-19 Vaccine ( season) Covid-19 Vaccine () [facility] Start: 11-05-2023 Advance Directive Discussion Advance Directive Discussion [facility] Start: 07-06-2023 Influenza vaccination C [facility] Start: 05-02-2023 Adult depression screening assessment DEPRESSION SCREENING [facility] Start: 11-05-2022 ADVANCE DIRECTIVE DISCUSSION ADVANCE DIRECTIVE DISCUSSION [facility] Start: 11-05-2022 DEPRESSION ASSESSMENT DEPRESSION ASS ESSMENT [facility] Start: 10-06-2022 Adult depression screening assessment DEPRESSION SCREENING [facility] Start: 07-06-2022 Influenza vaccination C [facility] Start: 04-14-2022 COVID-19 VACCINE (5 - Booster for Moderna series) COVID-19 VACCINE (5 - Booster for Moderna series) [facility] Start: 12-28-2021 COVID-19 VACCINE (4 - Booster for Moderna series) COVID-19 VACCINE (4 - Booster for Moderna series) [facility] Start: 11-05-2021 ADVANCE DIRECTIVE DISCUSSION ADVANCE DIRECTIVE DISCUSSION [facility] Start: 11-05-2021 DEPRESSION ASSESSMENT DEPRESSION ASS ESSMENT [facility] Start: 2011 PNEUMOCOCCAL: 65+ (1 - PCV) PNEUMOCOCCAL: 65+ (1 - PCV) [facility] Start: 2011 PNEUMOVAX AGE 65 AND OVER WITH 5YR LOOKBACK (#1) PNEUMOVAX AGE 65 AND OVER WITH 5YR LOOKBACK (#1) [facility] Start: 2006 RSV Vaccine (1 - 1-d ose 60+ series) RSV Vaccine (1 - 1-dose 60+ series) [facility] Start: 1996 Administration of varicella zoster vaccine Zoster (Shingles) Vaccine (1 of 2) [facility] Start: 1996 SHINGRIX VACCINE (1 of 2) SHINGRIX VACCINE (1 of 2) [facility] Start: 1991 COLOGUARD (FIT-DNA) COLOGUARD (FIT-D NA) [facility] Start: 1991 Colonoscopy COLONOSCOPY [facility] Start: 1991 COLORECTAL CANCER SCREENING COLORECTAL CANCER SCREENING [facility] Start: [address] COLONOGRAPHY [facility] Start: 1991 FECAL OCCULT BLOOD FECAL OCCULT BLOO D [facility] Start: 1991 SIGMOIDOSCOPY SIGMOIDOSCOPY [facility] Start: 1981 LIPID SCREEN LIPID SCREEN [facility] Start: 1965 DTaP,Tdap and Td Vaccines (1 - Tdap) DTaP,Tdap and Td Vaccines (1 - Tdap) [facility] Start: 1965 Urine microalbumin profile [facility] Start: 1964 Adult BMI Follow Up Plan Adult BMI Follow Up Plan [facility] Start: 1964 HEPATITIS C SCREENING HEPATITIS C [facility] Start: 1964 Hepatitis C screening Hepatitis C [facility] Immunizations Immunization Date Immunization Notes Care Provider Flakito chen 01-14-2021 COVID-19 Vaccine Moderna - Documentation Purposes Only Young Dean Other [employer] Other 12-17-2020 COVID-19 Vaccine Moderna - Documentation Purposes Only Young Dean Other [employer] Other 09-18-2018 pneumococcal polysaccharide vaccine, 23 valent Jun Carrasco MD Work Phone: [facility] 08-30-2015 pneumococcal conjuga te vaccine, 13 valent Young Dean Other [employer] Other 08-05-2015 pneumococcal polysaccharide vaccine, 23 valent Young Dean Other [employer] Other Payers Date Payer Category Payer Self-pay 2017 Private Health Insurance [facility] AARP SUPPLEMENT [id number] 2017-Present [phone] [address] [place] [address] Indemnity [id number] 2017 Unknown [id number] 2015 Private Health Insurance [id number] 2012 Medicare MEDICARE MEDICAR E A AND B [id number] 2012-Present [phone] [address] [address] [place] [address] Medicare [id number] 2012 Medicare [id number] 2011 Medicare [id number] 1959 Medicare [id number] 1946 Unknown [id number] .355 1946 Unknown [id number] 2.16.840.1.538996.3.579.2 .1258 1946 Unknown [id number] 2.16.840.1.945940.3.579.2 .1258 1946 Unknown [id number] 2.16.840.1.355975.3.579.2 .1258 1946 Unknown [id number] 2.16.840.1.490492.3.579.2 .1258 1946 Unknown [id number] 2.16840.1.518667.3.579.2 .1258 1946 Unknown [id number] 2.840.1.484036.3.579.2 .1258 1946 Unknown [id number] 2.840.1.021658.3.579.2 .1258 1946 Unknown [id number] 2.840.1.529822.3.579.2 .1258 1946 Unknown [id number] 2.840.1.954679.3.579.2 .1258 1946 Unknown [id number] 2.840.1.907862.3.579.2 .1258 1946 Unknown [id number] 2.16840.1.524140.3.579.2 .1258 1946 Unknown [id number] 2.840.1.096021.3.579.2 .1258 1946 Unknown [id number] 2.840.1.348706.3.579.2 .1258 1946 Unknown [id number] 2.16840.1.101553.3.579.2 .1259 Unknown [id number] [id number] .531 Unknown [id number] [id number] .531 Social History Date Type Detail Facility Start: 03-16-2014 End: 08-10-2022 Tobacco smoking status NHIS Ex-smoker [facility] End: 11-05-1994 History of tobacco use Current smoker [facility] End: 11-05-1994 History of tobacco use Cigarette Smoker [facility] Start: 03-16-2014 End: 12-02-2022 Cigarettes smoked current (pack per day) - Reported 1 [facility] Start: 03-16-2014 End: 08-10-2022 Tobacco use and exposure Smokeless tobacco non-user [facility] Start: 01-06-2022 End: 04-22-2024 Alcohol intake Current non-drinker of alcohol (finding) [facility] Start: 02-24-2015 History SDOH Alcohol Comment quit 1991 [facility] Start: 1945 Sex Assigned At Not on file C [facility] Start: 12-02-2022 End: 09-04-2023 Sex Assigned At [facility] Start: 04-22-2022 End: 08-10-2022 Exposure to SARS-CoV-2 (event) Not sure [facility] Adult Depression Screening Assessment 0 [facility] Start: 1945 Sex Assigned At Male P [id number] Medical Equipment Procedure Code Equipment Code Equipment Origin al Text Equipment Identifier Dates Stretch-Coil Dbs Extension 60 - [id number] Start: 05-15-2014 Lead Nrstm 40cm Actv Dbs - [id number] Start: 05-05-2014 Comment on above: Description: LEAD ON LY Ipg Activa Sc Db s Coil Extn - [id number] Start: 05-15-2014 Neurostimulator Activa Sc 0-10.5v 2-250hz 0-25.5ma 2.4inx2.2in .4in - [id number] Start: 12-14-2017 Neurostimulator Activa Rc 10.5-V 2-250hz 2.2inx2.2in .4in Implantable 2 - [id number] Start: 01-06-2022 Stent Uret 6fr 2 6cm W/O Gw Inl - [id number] Start: 02-25-2015 Comment on above: Description: no stri ng Stent Uret 6fr 2 6cm W/O Gw Inl - [id number] Start: 02-25-2015 Stent Uret 6fr 2 6cm W/O Gw Inl - [id number] Start: 03-11-2015 Stent Uret 6fr 2 6cm W/O Gw Inl - [id number] Start: 03-11-2015 Clinical Notes 09-11-2021 to 04-22-2024 Patient InstructionsMila Andino APRN.LAURIE - 04/22/2024 2:41 PM EDTMila Andino APRN.LAURIE - 04/22/2024 2:41 PM EDMila Maravilla APRN.CNP [...] or you can send a message through [employer]. You can also now schedule and select appointments through [employer]. Mila Andino APRN.CNP documented in this encounter [facility] 04-22-2024 Note HNO ID: [id number] Author: MILA ANDINO APRN.CNP Service: ? Author [...] improved and h (more content not included)... [facility] 04-22-2024 Procedure note DBS programming: [...] his eye started closing but then relaxed. [facility] 04-22-2024 Procedure note DBS programming: Right [...] but then relaxed. documented in this encounter [facility] 04-22-2024 Note HNO ID: [id number] Author: MILA ANDINO APRN.CNP Service: ? Author Type: Nurse Practitioner Type: Progress Notes Filed: 04/22/2024 18:48 Note Text: [facility] - FOLLOW UP EVALUATION Ny Hoyos DO [address] [place] [address] Dear Ny Hoyos DO: I had the [...] Allergies Unknown Current Outpatient Medications Medication Sig wdavqjh-pzdnodvgc-sbvotdf D3 500 mg-5 mcg (200 unit) per tablet Take 1 tablet by mouth. [id number]-fflrkx-ylotqhhhid (NEURIVA PLUS BRAIN PERFORMANCE) 1.7 mg-400 mcg- [...] (FLONASE) 50 mcg/actuation nasal spray Use 1 [place] in each nostril once daily. docusate sodium [...] is 27.6 kg/m?. Movement Disorders Scales Performed: Eavk-Ghndjs-Jkipw Tremor Scale Face Tremor At Rest: 0 - None. Tongue Tremor At Rest: Posture Holdin (more content not included)... [facility] 04-22-2024 History of Presen t illness Narrative [facility] - FOLLOW UP EVALUATION Ny Hoyos DO [address] [place] [address] Dear Ny Hoyos DO: I had the [...] Allergies Unknown Current Outpatient Medications Medication Sig kcvymvb-jeztxevke-jrsrxak D3 500 mg-5 mcg (200 unit) per tablet Take 1 tablet by mouth. [id number]-ywgqlj-ccvszwkemv (NEURIVA PLUS BRAIN PERFORMANCE) 1.7 mg-400 mcg- [...] (FLONASE) 50 mcg/actuation nasal spray Use 1 Newport in each nostril once daily. docusate sodium [...] 27.6 kg/m . Movement Disorders Scales Performed: Jyok-Etryuo-Xollg Tremor Scale Face Tremor At Rest: 0 [...] intracranial process. Assessment and Plan: Assessment Mr. Marrqouin is a left-handed 78 year old year [...] or around: 02/03/25 Level of service : 22047 (20-29 min). Time spent 20 min on the day of service, which included preparing to see the patient, lasf-kr-yink patient care, completing clinical documentation, obtaining and/or reviewing separately obtained history, performing a medically appropriate examination, and counseling and educating the patient/family/caregiver. This does not include DBS analysis and/or programming time. Mila Andino APRN.CNP documented in this encounter [facility] 04-09-2024 Telephone encounter Note At appointment time, 3p, pt was not checked in. Went to lobby/waiting room and hallway to call for pt. Pt was not in either location. [facility] 04-09-2024 Miscellaneous Notes At appointment time, 3p, pt was not checked in. Went to lobby/waiting room and hallway to call for pt. Pt was not in either location. documented in this encounter [facility] 03-05-2024 Telephone encounter Note I reviewed the labs and these are wnl except his Vit D level is still low. I will have him contacted to follow up with his primary care provider about this and then the labs will be faxed to the primary care provider as well. PHILIP Rouse [facility] 03-05-2024 Miscellaneous Notes I reviewed the [...] available in CareEverywhere. documented in this encounter [facility] 03-05-2024 Telephone encounter Note Pt's called to report that he had labs done yesterday at outside facility. Looks like they are available in CareEverywhere. [facility] 03-04-2024 Instructions Mila Andino APRN.CNP - 03/04/2024 [...] or you can send a message through MemberConnection. You can also now schedule and select appointments through MemberConnection. Mila Andino APRN.METAL OFF BEARER documented in this encounter [facility] 03-04-2024 History of Presen t illness Narrative [facility] - FOLLOW UP EVALUATION Ny Hoyos DO [address] [place] [address] Dear Ny Hoyos DO: I had the [...] (FLONASE) 50 mcg/actuation nasal spray Use 1 Newport in each nostril once daily. docusate sodium (COLACE) 100 mg capsule Take 1 capsule by mouth twice daily as needed for Constipation. [id number]-txwxourbvz (NEURIVA PLUS BRAIN PERFORMANCE) 1.7 mg-400 mcg- [...] 27.82 kg/m . Movement Disorders Scales Performed: [place] Cognitive Assessment (MoCA) Visuospatial/Executive 2 Naming 3 Attention 6 Language 0 Abstraction 1 Delayed Memory 2 Orientation 6 Education < or equal to 12 years (1 is true, 0 is false) 1 MoCA Total Score 21 Evgd-Vaojmd-Ayvsq Tremor Scale Voice Tremor Action and Intention: [...] speech changes and gait changes. Mila Andino APRN.METAL OFF BEARER documented in this encounter [facility] 03-04-2024 Note HNO ID: [id number] Author: MILA ANDINO APRN.LAURIE Service: ? Author [...] is the be (more content not included)... [facility] 03-04-2024 Note HNO ID: [id number] Author: MILA ANDINO APRN.METAL OFF BEARER Service: ? Author Type: Nurse Practitioner Type: Progress Notes Filed: 03/05/2024 12:54 Note Text: [facility] - FOLLOW UP EVALUATION Ny Hoyos DO [address] [place] [address] Dear Ny Hoyos DO: I had the [...] (FLONASE) 50 mcg/actuation nasal spray Use 1 Newport in each nostril once daily. docusate sodium (COLACE) 100 mg capsule Take 1 capsule by mouth twice daily as needed for Constipation. [id number]-qcbwqr-uuoudbgagk (NEURIVA PLUS BRAIN PERFORMANCE) 1.7 mg-400 mcg- [...] is 27.82 kg/m?. Movement Disorders Scales Performed: [place] Cognitive Assessment (MoCA) Visuospatial/Executive 2 Naming 3 Attention 6 Language 0 Abstraction 1 Delayed Memory 2 Orientation 6 Education < or equal to 12 years (1 is true, 0 is false) 1 MoCA Total Score 21 Vbek-Xlflsj-Tnybm Tremor Scale Voice Tremor Action and Intention: [...] RC. He als (more content not included)... [facility] 03-04-2024 Procedure note DBS programming: [...] his eye started closing but then relaxed. CET [facility] 03-04-2024 Procedure note DBS programming: Right [...] but then relaxed. documented in this encounter [facility] 09-04-2023 Instructions Mila Andino APRN.CNP - 09/04/2023 [...] or you can send a message through MemberConnection. You can also now schedule and select appointments through MemberConnection. Mila Andino APRN.CNP documented in this encounter [facility] 09-04-2023 Note HNO ID: [id number] Author: Mila Andino APRN.METAL OFF BEARER Service: ? Author Type: Nurse Practitioner Type: [...] he did not (more content not included)... [facility] 09-04-2023 Procedure note DBS programmin:43am-10:51am [...] but then relaxed. documented in this encounter [facility] 09-04-2023 Note HNO ID: [id number] Author: Mila Andino APRN.LAURIE Service: ? Author Type: Nurse Practitioner Type: Progress Notes Filed: 09/04/2023 11:18 AM Note Text: [facility] - FOLLOW UP EVALUATION Ny Hoyos DO [address] [facility] [address] Dear Ny Hoyos DO: I had the [...] this with the following steps: -Push the Rooks check button and then hold the ibm mainframe systems programmer up to your battery. -Using the navigator pad at the bottom of your ibm mainframe systems programmer, push the down arrow to put [...] settings you came in on). -Push the Rooks check button and then hold the ibm mainframe systems programmer up to your battery. You should [...] old settings. He has been going to [email or web address] three times a week and this [...] (FLONASE) 50 mcg/actuation nasal spray Use 1 Newport in each nostril once daily. docusate sodium [...] is 26.91 kg/m?. Movement Disorders Scales Performed: Hgyc-Dqrvqw-Jlamd Tremor Scale Face Tremor At Rest: 2 [...] with essential tremor (more content not included)... [facility] 09-04-2023 History of Presen t illness Narrative [facility] - FOLLOW UP EVALUATION Ny Hoyos DO [address] [facility] [address] Dear Ny Hoyos DO: I had the [...] this with the following steps: -Push the Rooks check button and then hold the ibm mainframe systems programmer up to your battery. -Using the navigator pad at the bottom of your ibm mainframe systems programmer, push the down arrow to put [...] settings you came in on). -Push the Rooks check button and then hold the ibm mainframe systems programmer up to your battery. You should [...] old settings. He has been going to [employer] three times a week and this is [...] (FLONASE) 50 mcg/actuation nasal spray Use 1 Newport in each nostril once daily. docusate sodium [...] 26.91 kg/m . Movement Disorders Scales Performed: Edgc-Kpvdsh-Slwkl Tremor Scale Face Tremor At Rest: 2 [...] Mila Andino APRN.LAURIE documented in this encounter [facility] 04-11-2023 Miscellaneous Notes Attempted to reach [...] it. Thanks! Mila documented in this encounter [facility] 04-06-2023 Miscellaneous Notes I spoke with [...] don't see anything soon that is available. [phone] documented in this encounter [facility] 04-01-2023 Evaluation note Encounter Date Diagnosis Assessment Notes March, Strain of lumbar region, initial encounter (ICD-10 - S39.012A) Low back pain home care material was printed [facility] Other 04-06-2023 Instructions* Patient Instructions* Mila Andino APRN.METAL OFF BEARER - 02/08/2023 1:38 PM EDT It was [...] this with the following steps: -Push the Rooks check button and then hold the ibm mainframe systems programmer up to your battery. -Using the navigator pad at the bottom of your ibm mainframe systems programmer, push the down arrow to put [...] settings you came in on). -Push the Rooks check button and then hold the ibm mainframe systems programmer up to your battery. You should [...] or you can send a message through MemberConnection. You can also now schedule and select appointments through MemberConnection. Mila Andino APRN.LAURIE [facility] Procedure note* Mila Andino APRN.CNP - 02/08/2023 [...] closing but then relaxed. [facility] History of Present illness Narrative* Mila Andino APRN.LAURIE - 02/08/2023 12:53 PM EDT [facility] - FOLLOW UP EVALUATION Ny Hoyos DO [address] [facility] [place] [place] [address] Dear Ny Hoyos DO: I had the [...] (FLONASE) 50 mcg/actuation nasal spray Use 1 Newport in each nostril once daily. docusate sodium [...] 26.72 kg/m . Movement Disorders Scales Performed: Noul-Jviedj-Fzpmk Tremor Scale Voice Tremor Action and Intention: [...] this with the following steps: -Push the Rooks check button and then hold the ibm mainframe systems programmer up to your battery. -Using the navigator pad at the bottom of your ibm mainframe systems programmer, push the down arrow to put [...] settings you came in on). -Push the Rooks check button and then hold the ibm mainframe systems programmer up to your battery. You should [...] lightheadedness, speech changesand gait changes. Mila Andino APRN.LAURIE [facility] History of Present illness Narrative* Stacy Jones MD - 11/09/2022 12:52 PM EST At appointment with EW today patient stated he did not want to proceed with injections today since pain is managed. Therefore I did not see him. Will keep February appointments for now and cancel if notneeded. documented [facility] Instructions* Patient Instructions* Mila Andino APRN.LAURIE - [...] or you can send a message through MemberConnection. You can also now schedule and select appointments through MemberConnection. Mila Andino APRN.LAURIE documented in [facility] Procedure note* Mila Andino APRN.LAURIE - 11/09/2022 [...] closing but then relaxed. documented in [facility] History of Present illness Narrative* Mila Andino APRN.LAURIE - 11/09/2022 12:17 PM EST [facility] - FOLLOW UP EVALUATION Ny Hoyos DO [address] [place] [address] Dear Ny Hoyos DO: I had the [...] (FLONASE) 50 mcg/actuation nasal spray Use 1 Newport in each nostril once daily. docusate sodium [...] 26.72 kg/m . Movement Disorders Scales Performed: Futo-Iuoovc-Wpywn Tremor Scale Voice Tremor Action and Intention: [...] Buspar 10mg 1 1 1 Mila Andino APRN.METAL OFF BEARER documented in this [facility] Evaluation note* Encounter Date Diagnosis Assessment [...] Pt understood and agreed to tx plan. [facility] Other 10-06-2022 History of Present illness Narrative* Stacy Jones MD - 08/10/2022 10:50 AM EDT Images from the original note were not included. [place] [facility] Disorders Neurotoxin Visit Date: August 10, [...] (FLONASE) 50 mcg/actuation nasal spray Use 1 Newport in each nostril once daily. docusate sodium [...] N/A Administered with EMG guidance: Yes Lot#: [id number] Exp Date: , Today's neurotoxin regimen: Med right midline left Sternocleidomastoid 1500 1500 Splenius capitus 750 750 Semispinalis 1500 1500 Total: 7500 Future plan of care: Follow up: 3 months Neurotoxin change: No Dose change:No Dilution change:No Stacy Jones MD August 10, 2022 12:20 PM Dept of NEUROLOGY TIME OUT/ PROCEDURE NOTE: Informed consent Yordan Marroquin Medical Record: [id number] Procedure: neurotoxin intramuscular injection The risks, benefits and anticipated outcomes of the procedure, the risks and benefits of the alternatives to the procedure and the roles and tasks of the personnel to be involved were discussed with the patient and the patient consents to the procedure and agrees to proceed. I verify that I personally obtained Yordan Horta Marytrang's consent. Stacy Jones MD August 10, 2022 [...] -- Stacy Jones MD documented in this encounter[facility] Instructions* Patient Instructions* Mila Andino APRN.CNP - 05/02/2022 12:28 PM EDT It was [...] or you can send a message through MemberConnection. You can also now schedule and select appointments through MemberConnection. Mila Andino APRN.LAURIE documented in this encounter[facility] Procedure note* Mila Andino APRN.METAL OFF BEARER - 05/02/2022 12:17 PM EDT DBS programming: [...] closing but then relaxed. documented in this encounterPark[facility] History of Present illness Narrative* Mila Andino APRN.LAURIE - 05/02/2022 12:03 PM EDT [facility] - FOLLOW UP EVALUATION Ny Hoyos, DO [address] [facility] [place] [address] I had the pleasure of seeing Mr. [...] similar foods. May bring head at least mcc to meet food. Tremor liquids Moderately abnormal. [...] (FLONASE) 50 mcg/actuation nasal spray Use 1 Newport in each nostril once daily. docusate sodium [...] BMI 26.68 kg/m Movement Disorders Scales Performed: Cfqt-Swzprv-Jhzsc Tremor Scale Voice Tremor Action and Intention: [...] Making Level: 4 - Moderate Mila Andino APRN.METAL OFF BEARER documented in this encounterPark[facility] History of Present illness Narrative* Stacy Jones MD - 05/02/2022 11:14 AM EDT Images from the original note were not included. [facility] Movement Disorders Neurotoxin Visit Date: May 02, [...] (FLONASE) 50 mcg/actuation nasal spray Use 1 Newport in each nostril once daily. docusate sodium [...] guidance: Yes Injection Site: Cervical dystonia: CPT 29579 Right Left Sternocleidomastoid 1000 1000 Splenius capitus 500 500 Scalene Levator Scapulae Trapezius Semispinalis 1000 1000 Future plan of care: Return in about 3 months (around 08/02/2022) for botulinum toxin. Stacy Jones M.D. Clinical Fixed Wing Aircraft Flight Engineer, [facility] Staff, [facility] [place] Department [facility] documented in this encounterPark[facility] Miscellaneous Notes* Telephone Encounter - Darlin Johnson [facility] - 03/24/2022 10:05 AM EDT Pt's phoned regarding Myobloc appt with Dr. Jones on the same day as he is scheduled with Mila (04/13). Advised per KA's note at the Oct 2021 visit, that they were supposed to contact our office in December to discuss. Also advised that ALEE has a full schedule that day and we do not have availability. She said they will discuss with Mila at the appt. * Telephone Encounter - Ce Coats [facility] - 03/22/2022 1:26 PM EDT NI PHONE [...] Mila Andino CNP. Number to return call [phone] Okay to leave a message ? Yes Last office visit 10/06/21 with Mila Andino CNP & Dr. Jones Next office visit 04/13/22 with Mila Andino CNP Thank you calling [facility] [place]. You will receive a return call within 48hours ( or 2 business days if close to the weekend). If you feel that this is an urgent issue and needs immediate attention, it is recommended that you contact your primary care provider office or proceed to your nearest Urgent Care Center of Emergency Room ED for evaluation/treatment. ' documented in this encounter[facility] Evaluation note* Encounter Date Diagnosis Assessment [...] call if those occur. Looks great today. [facility] Other 02-14-2022 Evaluation note* Encounter Date Diagnosis Assessment Notes Treatment Notes Treatment Clinical Notes Dec, Seasonal allergies (ICD-10 - J30.2) [facility] Other 12-14-2021 Evaluation note* Encounter Date Diagnosis [...] Hyperlipidemia, mixed (ICD-10 - E78.2) will update. [facility] Other 11-07-2021 Evaluation note* Encounter Date Diagnosis [...] Patient care instructions given in writting by [facility] Care At Home document. [facility] Other Evaluation note* Diagnosis Cervical dystonia- Primary Spasmodic torticollis documented in this encounter [facility]* Diagnosis Anxiety- Primary Anxiety state, unspecified Essential tremor Essential and other specified forms of tremor S/P deep brain stimulator placement Other postprocedural status documented in this encounter [facility] noteNo InformationNort [place] Other Evaluation note* Diagnosis Cervical dystonia- Primary Spasmodic torticollis documented in this encounter [facility]* Diagnosis Essential tremor- Primary Essential and other specified forms of tremor S/P deep brain stimulator placement Other postprocedural status Anxiety Anxiety state, unspecified documented in this encounter [facility]* Diagnosis APPOINTMENT CANCELLED- Primary [facility]* Diagnosis Essential tremor- Primary Essential and other specified forms of tremor S/P deep brain stimulator placement Other postprocedural status Anxiety Anxiety state, unspecified documented in this encounter [facility] note* Diagnosis Anxiety Anxiety state, unspecified documented in this encounter [facility] note* Diagnosis Essential tremor- Primary Essential and other specified forms of tremor Anxiety Anxiety state, unspecified S/P deep brain stimulator placement Other postprocedural status documented in this encounter [facility] note* Diagnosis Arthritis Unspecified arthropathy, site unspecified Vitamin D deficiency documented in this encounter [facility] Diagnosis Essential tremor- Primary Essential and other specified forms of tremor S/P deep brain stimulator placement Other postprocedural status Anxiety Anxiety state, unspecified Abnormality of gait Cognitive impairment Unspecified persistent mental disorders due to conditions classified elsewhere Vitamin D deficiency Unspecified vitamin D deficiency documented in this encounter [facility] note* Diagnosis Essential tremor- Primary Essential and other specified forms of tremor S/P deep brain stimulator placement Other postprocedural status documented in this encounter [facility] general Narrative - Reported* Type Description Date Medical History tremors Medical History Atrial fibrillation Surgical History DBS - Deep brain stimulator 201 0 Surgical History R knee replacement Surgical History L elbow - pinched nerve Surgical History cardiac ablation Hospitalization History see above [facility] Other History general Narrative - Reported* Type Description Date Medical History tremors Medical History Atrial fibrillation Medical History GERD Surgical History DBS - Deep brain stimulator 201 0 Surgical History R knee replacement Surgical History L elbow - pinched nerve Surgical History cardiac ablation Hospitalization History see above [facility] Other InstructionsNot on filedocumented in this encounter [facility] Purpose Family History No Family History Records FoundNo Family History Records FoundNo Family History Records FoundNo Family History Records FoundNo Family History Records FoundNo Family History Records FoundNo Family History Records Found Advance Directives No Advanced Directives Records FoundDocuments on File Type Date Recorded 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 Repair Manager Expl anation Advance Directive(s) 11/29/2021 2:19 PM [...] Specialty Diagnoses / Procedures Referred By Ofelia iraheta Referred To Contact Diagnoses Essential tremor S/P deep brain stimulator placement Procedures PROVIDER ORDERED FOLLOW UP OFFICE/OUTPATIENT [facility]3] 60 MINUTES Mila Andino, BEREAVEMENT COUNSELOR.METAL OFF BEARER [address] [address] Referral ID Status Reason Start Date Expiration Date Visits Requested Visits Authorized [id number] Authorized PCP Requested Referral 02/03/2025 04/22/2025 1 1 Specialty Diagnoses / Procedures Referred By Ofelia iraheta Referred To Contact [facility] Diagnoses Essential tremor Abnormality of gait Procedures CONSULT TO PHYSICAL THERAPY PHYSICAL THERAPY EVALUATION HIGH COMPLEX 45 MINS Mila Andino, BEREAVEMENT COUNSELOR.METAL OFF BEARER [address] [place] [address] [facility] [place] [address] [place] [address] Referral ID Status Reason Start Date Expiration Date Visits Requested Visits Authorized [id number] Authorized PCP Requested Referral Auto-Generate d Referral 03/04/2024 03/04/2025 99 99 Additional Source Comments (unrecognized sect ion and content) No Status Records FoundNo Status Records FoundNo Status Records FoundNo Status Records FoundNo Status Records FoundNo Status Records FoundNo Status Records Found INFORMATION SOURCE (unrecogn ized section and content) DATE CREATED AUTHOR 05/01/2018 [facility] DATE CREATED AUTHOR AUTHOR'S ORGANIZ ATION 09/22/2018 [facility] DATE CREATED AUTHOR AUTHOR'S ORGANIZ ATION 07/03/2019 [facility] DATE CREATED AUTHOR AUTHOR'S ORGANIZ ATION 06/14/2020 [facility] DATE CREATED AUTHOR AUTHOR'S ORGANIZ ATION 2022 [facility] DATE CREATED AUTHOR AUTHOR'S ORGANIZ ATION 04/24/2024 [facility] DATE CREATED AUTHOR AUTHOR'S ORGANIZ ATION 06/19/2024 [facility] Special[facility] EPIC Source Comments (unrecognize d section and content) In the event this informatio n is protected by the Federal Confidentiality of Alcohol and Drug Abuse Patient Records regulations: The Federal rules restrict any use of the information to criminally investigate or prosecute any alcohol or drug abuse patient.[facility] HospitalIn the event this information is protected by the Federal Confidentiality of Alcohol and Drug Abuse Patient Records regulations: The Federal rules restrict any use of the information to criminally investigate or prosecute any alcohol or drug abuse patient.[facility] HospitalIn the event this information is protected by the Federal Confidentiality of Alcohol and Drug Abuse Patient Records regulations: The Federal rules restrict any use of the information to criminally investigate or prosecute any alcohol or drug abuse patient.[facility] HospitalIn the event this information is protected by the Federal Confidentiality of Alcohol and Drug Abuse Patient Records regulations: The Federal rules restrict any use of the information to criminally investigate or prosecute any alcohol or drug abuse patient.[facility] HospitalIn the event this information is protected by the Federal Confidentiality of Alcohol and Drug Abuse Patient Records regulations: The Federal rules restrict any use of the information to criminally investigate or prosecute any alcohol or drug abuse patient.[facility] HospitalIn the event this information is protected by the Federal Confidentiality of Alcohol and Drug Abuse Patient Records regulations: The Federal rules restrict any use of the information to criminally investigate or prosecute any alcohol or drug abuse patient.[facility] HospitalIn the event this information is protected by the Federal Confidentiality of Alcohol and Drug Abuse Patient Records regulations: The Federal rules restrict any use of the information to criminally investigate or prosecute any alcohol or drug abuse patient.[facility] HospitalIn the event this information is protected by the Federal Confidentiality of Alcohol and Drug Abuse Patient Records regulations: The Federal rules restrict any use of the information to criminally investigate or prosecute any alcohol or drug abuse patient.[facility] HospitalIn the event this information is protected by the Federal Confidentiality of Alcohol and Drug Abuse Patient Records regulations: The Federal rules restrict any use of the information to criminally investigate or prosecute any alcohol or drug abuse patient.[facility] HospitalIn the event this information is protected by the Federal Confidentiality of Alcohol and Drug Abuse Patient Records regulations: The Federal rules restrict any use of the information to criminally investigate or prosecute any alcohol or drug abuse patient.[facility] HospitalIn the event this information is protected by the Federal Confidentiality of Alcohol and Drug Abuse Patient Records regulations: The Federal rules restrict any use of the information to criminally investigate or prosecute any alcohol or drug abuse patient.[facility] HospitalIn the event this information is protected by the Federal Confidentiality of Alcohol and Drug Abuse Patient Records regulations: The Federal rules restrict any use of the information to criminally investigate or prosecute any alcohol or drug abuse patient.[facility] HospitalIn the event this information is protected by the Federal Confidentiality of Alcohol and Drug Abuse Patient Records regulations: The Federal rules restrict any use of the information to criminally investigate or prosecute any alcohol or drug abuse patient.[facility] HospitalIn the event this information is protected by the Federal Confidentiality of Alcohol and Drug Abuse Patient Records regulations: The Federal rules restrict any use of the information to criminally investigate or prosecute any alcohol or drug abuse patient.[facility] Reason for Visit (unrecogniz ed section and content) Reason Comments Patient Request Reason Comments Neurotoxin Injection Reason Comments Essential tremor Reason Comments Symptom Management Reason Comments Appointment Reason Comments Med Refill Reason Comments Essential tremor Follow Up Reason Comments Results Labs Reason Comments Essential tremor Follow Up Care Teams (unrecognized sec tion and content) Technical Systems Architect Relationship Specialty Start Date End Date Alee Hoyosyue Costello, DO [address] [place] [address] PCP - General Family Practice 10/06/21 Technical Systems Architect Relationship Specialty Start Date End Date DanomangorachelNy, DO [address] [place] [address] PCP - General Family Practice 10/06/21 Technical Systems Architect Relationship Specialty Start Date End Date DanoNy drummond, DO [address] [place] [address] PCP - General Family Practice 10/06/21 Technical Systems Architect Relationship Specialty Start Date End Date DanoNy drummond, DO [address] [place] [address] PCP - General Family Medicine 10/06/21 Technical Systems Architect Relationship Specialty Start Date End Date RomainNy, DO [address] [place] [address] PCP - General Family Medicine 10/06/21 Technical Systems Architect Relationship Specialty Start Date End Date DanoNy drummond, DO [address] [place] [address] PCP - General Family Medicine 10/06/21 Technical Systems Architect Relationship Specialty Start Date End Date DanoNy drummond, DO [address] [place] [address] PCP - General Family Medicine 10/06/21 Technical Systems Architect Relationship Specialty Start Date End Date Ny Hoyos DO [address] [place] [address] PCP - General Family Medicine 10/06/21 Technical Systems Architect Relationship Specialty Start Date End Date Ny Hoyos DO [address] [place] [address] PCP - General Family Medicine 10/06/21 Technical Systems Architect Relationship Specialty Start Date End Date Ny Hoyos DO [address] [facility] [place] [address] PCP - General Family Medicine 10/06/21 Technical Systems Architect Relationship Specialty Start Date End Date Jun Carrasco MD [address] [facility] [place] [address] PCP - General Internal Medicine 03/23/23 [facility] Nurse [facility] 06/14/23 Technical Systems Architect Relationship Specialty Start Date End Date Ny Hoyos DO [address] [facility] [place] [address] PCP - General Family Medicine 10/06/21 Technical Systems Architect Relationship Specialty Start Date End Date Ny Hoyos DO [address] [address] PCP - General Family Medicine 10/06/21 Technical Systems Architect Relationship Specialty Start Date End Date Ny Hoyos DO [address] [facility] [place], [facility] PCP - General Family Medicine 10/06/21 Technical Systems Architect Relationship Specialty Start Date End Date DanoAlee drummonditlin Trang [address] [facility] [place] [address] PCP - General Family Medicine 10/06/21 FOR [...] BE BASED ON THE PRIMARY CLINICAL RECORDS. [facility] [employer] [facility]. provides no warranty or guarantee of the accuracy or completeness of information in this document.
[2024-07-02] MEDS: REGADENOSON 0.4 MG/5 ML SYRINGE IV (08:53)
--- NOTE | 2024-07-02 18:40 | P.STRESS_ITS ---
Stress Test Stress Test Allergies Allergy/AdvReac Type Severity Reaction Status Date / Time Penicillins AdvReac Severe Hives Verified 06/07/24 15:19 Requesting physician: RASHEED LUCAS Procedure: Lexiscan Cardiolite stress test General Information: Reason for Stress Test: Chest pain Cardiac History and Risk Factors: History of afib s/p ablation Resting 12 - Lead Electrocardiogram: Rate & rhythm: Normal sinus at a rate of 70. Goodrich: Normal T-waves: Flattened in aVL ST-segments: Normal orientation Stress Test: Protocol: Lexiscan protocol was initiated with injection of 0.4mg Lexiscan IV push followed by Cardiolite. Blood pressure: Initial: 144/88, Maximum: 146/86 Rate & rhythm: Patient remained in sinus rhythm during the exercise and recovery portions of the study.? The maximum heart rate was 118, which was 82% of the maximum predicted heart rate. ST-segments & T-waves: There were no T-wave changes and no ST-segment changes when compared to the baseline EKG. Patient response/symptoms: There were no symptoms similar to the chief complain t. Interpretation: Normal Lexiscan stress test without electrocardiographical evidence of ischemia. Patient was asymptomatic regarding chief complaint. Cardiolite imaging interpretation will be reported separately. Clinical correlation required.
== END 2024-07-02 07:01 | disposition home or self-care (01) ==
LOC: NM 07:00
PROVIDERS: PCP Family Medicine; Visit Provider Family Medicine
DX: R07.9 Chest pain, unspecified (principal)
CPT/HCPCS: 78452; 93017; A9500; J2785

== ENCOUNTER 2024-07-15 08:47 | Outpatient (OUT) | payer MEDICARE, SELFPAY ==
--- NOTE | 2024-07-15 09:03 | CA_ITS ---
Patient Name: YORDAN KELLY MR#: [id number] : 1945 Exam Date: 07/15/2024 Ordering Doctor: DR RASHEED LUCAS M.D. ECHOCARDIOGRAM REPORT PROCEDURE: CA ECHO DOPPLER COMPLETE INDICATIONS: Chest pain, Atrial fibrillation COMPARISON: None. DESCRIPTION: COMPLETE ECHOCARDIOGRAM Real-time transthoracic echocardiography with 2D, M-mode, spectral and color flow Doppler performed. QUALITY: Technical quality was good. LEFT VENTRICLE: Normal chamber size. Normal left ventricular wall thickness. LV EF: Global left ventricular systolic function is normal; visually estimated ejection fraction is 55%. Unable to assess regional wall motion abnormalities. DIASTOLIC: Normal diastolic function. ATRIAL SEPTUM: Inadequately seen LEFT ATRIUM: Normal chamber size. RIGHT ATRIUM: Normal chamber size. RIGHT VENTRICLE: Normal chamber size. Normal right ventricular systolic function. TRICUSPID VALVE: Normal mobility and thickness. No stenosis with trivial regurgitation. No evidence of pulmonary hypertension. RVSP 19mmHg MITRAL VALVE: Mildly thickened with normal mobility. No evidence of mitral valve stenosis. Mild mitral annular calcification. Mild to moderate mitral regurgitation. AORTIC VALVE: Normal trileaflet appearance. Thickened aortic valve. Normal leaflet mobility. No evidence of aortic valve stenosis. Trivial aortic regurgitation. AORTIC ROOT: Normal diameter and appearance. PULMONIC VALVE: Normal thickness and mobility. No stenosis. Trivial regurgitation. PERICARDIUM: Trivial posterior pericardial effusion. IVC: Collapses with inspirations. Normal size. CONCLUSION: Global left ventricular systolic function is normal; visually estimated ejection fraction is 55%. Mild to moderate mitral regurgitation. Trivial posterior pericardial effusion. Adult Echocardiography Procedure Report Left Ventricle LVEDD (3.7 - 5.6 cm): 4.49 cm LVESD (2.2 - 4.0 cm): 2.95 cm LVIVS thickness (0.6 - 1.2 cm): 1.03 cm LVPW thickness (0.5 - 1.0 cm): 1.05 cm e': 0.09 m/s E - e': 8.03 LVOT Max Gradient: 2.00 mm[Hg] LVOT Area (cm2): 0.71 m/s Peak Velocity (LVOT): 0.71 m/s Mean Velocity (LVOT): 0.51 m/s LVOT Diameter 2.06 cm Left Ventricular Ejection Fraction: 52.06 % Left Atrium LA Volume Index (2D A2C): 33.27 ml/m2 Left Atrium Systolic Dimension: 4.01 cm Mitral Valve MV E to A Ratio: 0.87 MV Max Gradient: MV Mean Gradient: Mitral Valve A-Wave Peak Velocity: 0.85 m/s Mitral Valve E-Wave Peak Velocity: 0.74 m/s Cardiovascular Orifice Area: Right Ventricle RV Internal Diastolic Dimension: 3.40 cm Aorta AO Root Diam: 3.01 cm Ascending Ao Diam: 2.27 cm Aortic Valve AoV Area (Peak Pramod): 2.10 cm2, 2.10 cm2 AoV Area (VTI): 1.76 cm2, 1.76 cm2 Deceleration [place]: Pressure Half-Time: Peak Velocity(Antegrade Flow): 1.12 m/s Peak Gradient(Antegrade Flow): 5.05 mm[Hg] Mean Velocity(Antegrade Flow): 0.81 m/s Mean Gradient(Antegrade Flow): 3.00 mm[Hg] Velocity Time Integral: 28.49 cm Tricuspid Valve Peak Velocity (Regurgitant Flow): 2.00 m/s, 1.91 m/s, 2.00 m/s Peak Velocity: Pulmonic Valve Mean Gradient: 3.66 mm[Hg], 4.13 mm[Hg] Mean Velocity: 0.88 m/s, 0.94 m/s Peak Velocity: 1.32 m/s Peak Gradient: 6.49 mm[Hg], 7.56 mm[Hg] Right Atrium Right Atrium Systolic Pressure: 62.27 ml, 62.27 ml Dictated by: Neda Aguilar M.D. on 07/15/2024 at 13:28 Approved by: Neda Aguilar M.D. on 07/15/2024 at 13:33
== END 2024-07-15 08:48 | disposition home or self-care (01) ==
LOC: CARD 08:48
PROVIDERS: PCP Family Medicine; Visit Provider Family Medicine
DX: R07.9 Chest pain, unspecified (principal); Z86.79 Personal history of other diseases of the circulatory system
CPT/HCPCS: 93306; 93356

== ENCOUNTER 2024-10-19 10:41 | Emergency (ER) | payer MEDICARE, SELFPAY ==
[2024-10-19] VITALS (24 sets, daily range): BP systolic 116–132; BP diastolic 80–95; PULSE 93–145; TEMP 36.9; O2SAT 91–100; BMI 29.2
--- NOTE | 2024-10-19 10:45 | ECG_ITS ---
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
--- OUTSIDE RECORDS SUMMARY | 2024-10-19 11:12 | XMS_ITS | CCD ---
Author Organization [facility] Team Providers Care Oil And [employer] Superintendent Name Role Phone MEAGHANR LUAN A Unavailable Unavailable NADERER, LUAN A Unavailable Unavailable NADERER, LUAN A Unavailable Unavailable SHIVAM JOHN Unavailable Unavailable NADERER, LUAN A Unavailable Unavailable MARIO, RIGO Unavailable Unavailable MARIO, RIGO Unavailable Unavailable NO FAMILY DOCTOR, NO FAMILY DOCTOR Unavailable Unavailable Schwyvetter DO Ny E Primary Care Provider [phone] Young Dean Unavailable SchwAlee drummonditlin Unavailable Schwyvetter DO Ny E Primary Care Provider [phone] Schwyvetter , Ny E Primary Care Provider [phone] Shayla Mirza Attending Unavailable Shayla Mirza Primary Care Unavailable Shayla Mirza Admitting Unavailable Kyler Wood Attending Unavailab cristiana Hoyos Ny E Primary Care Unavailable Renuka River Consulting Unavailable Al Rogelio Raphael Admitting Unavailab Tiffany Brunson Consulting Unavailable Brittany Vanessa Consulting Unavailable Shivam Taylor Consulting Unavailable Armando Torres Consulting UnavailRomana Cisse Consulting Unavailable Yaya Perez Consulting Unavailable [place] Consulting Unavailable Karen Tavares Consulting Unavailable Tyler Ulrich Unavailable Krystina Goff Unavailable Jun Carrasco MD Primary Care Provider Schwyvetter DO Ny E Primary Care Provider Rasheed Lucas MD Primary Care Provider Schwerer DO, Ny E Primary Care Provider [phone] MILA ANDINO Attending Unavailable SCHWERER, [place] E Primary Care Unavailable MILA ANDINO Referring Unavailable MILA ANDINO Attending Unavailable SCHWERER, [place] E Primary Care Unavailable SCHWERER, [place] E Primary Care Unavailable MILA ANDINO Attending Unavailable NISH CRUZ Attending Unavailable RASHEED LUCAS Attending Unavailable CHRISTINA HALE Attending Unavailable LAWSON YOUSIF Attending Unavailable UNALLOCATED, NOMS PROVIDER Referring Unava ilable SHAYYRASHEED Attending Unavailable LUPIS SPAIN Attending Unavailable UNALLOCATED, NOMS PROVIDER Referring Unava ilable IRWIN DOUGLASS Attending Unavailable UNALLOCATED, NOMS PROVIDER Referring Unava ilable LIEBEBERYL, CHRISTINA Hernandez Attending Unavailable LUPIS SPAIN Attending Unavailable MILA ANDINO Referring Unavailable IRWIN DOUGLASS Attending Unavailable MILA ANDINO Referring Unavailable IRWIN DOUGLASS Attending Unavailable MILA ANDINO Referring Unavailable ROSHAN HERNANDEZ Attending Unavailable MILA ANDINO Referring Unavailable IRWIN DOUGLASS Attending Unavailable MILA ANDINO Referring Unavailable RASHEED LUCAS Attending Unavailable NISH CRUZ Attending Unavailable SVETLANA CARRERA Attending Unavailable MILA ANDINO Referring Unavailable SVETLANA CARRERA Attending Unavailable MILA ANDINO Referring Unavailable SVETLANA CARRERA Attending Unavailable MILA ANDINO Referring Unavailable IRWIN DOUGLASS Attending Unavailable MILA ANDINO Referring Unavailable IRWIN DOUGLASS Attending Unavailable MILA ANDINO Referring Unavailable IRWIN DOUGLASS Attending Unavailable MILA ANDINO Referring Unavailable SVETLANA CARRERA Attending Unavailable MILA ANDINO Referring Unavailable LUPIS SPAIN Attending Unavailable MILA ANDINO Referring Unavailable IRWIN DOUGLASS Attending Unavailable MILA ANDINO Referring Unavailable IRWIN DOUGLASS Attending Unavailable MILA ANDINO Referring Unavailable SHAYYRASHEED Patel Attending Unavailable SVETLANA CARRERA Attending Unavailable MILA ANDINO Referring Unavailable Allergies Allergy Classification Reported Allergen(s) Allergy Type Date of Onset Reaction(s) Facility (3 sources) Penicillins; Translations: [PENICILLINS] Drug allergy (disorder) 4 Unknown Reaction [facility] Repository (1 source) Penicillins Drug Allergy 4 Hives [facility] (20 sources) Seasonal allergy; Translations: [SEASONAL ALLERGIES] Allergy to substance 0 Unknown [facility] Work Phone: (10 sources) Penicillin V Drug Allergy 4 Unknown, Unknown Reaction [facility] (20 sources) Penicillins Drug Allergy 4 [facility] (16 sources) Bee Sting; Translations: [BEE STING] Allergy to substance 1 Rash [facility] Work Phone: (1 source) Penicillins Drug allergy (disorder) 8 [facility] Repository (20 sources) Honey bee venom Allergy to substance 1 Rash [facility] (20 sources) Penicillins Drug Allergy 4 Hives, Rash [facility] (20 sources) Pollen Propensity to adverse reactions 4 [facility] Medications Current Medications Medication Drug Class(es) Dates Sig (Normalized) Sig (Original) aspirin 81 mg delayed release oral tablet (20 sources) Platelet Aggregation Inhibitor, Nonsteroidal Anti-inflammatory Drug Start: 07-25-2018 take 1 tablet by mouth once daily Aspirin (Aspir-81) 81 mg tablet,delayed release (DR/EC) Active 81 MG PO Daily July 25, 2018 12:00am Comment on above: Take 81 mg by mouth. Take 81 mg by mouth once daily. azelastine hydrochloride 0.137 mg/actuat metered dose nasal spray (3 sources) Histamine-1 Receptor Antagonist Start: 10-18-2021 take 1 puff(s) nasal route twice daily Azelastine HCl 0.1 % 1 puff in each nostril Nasally Twice a day for 30 day(s) Oct, Active benzonatate 100 mg oral capsule (1 source) Non-narcotic Antitussive Start: 10-17-2022 take 1 capsule by mouth every eight hours Benzonatate 100 MG 1 capsule as needed Orally Three times a day for 10 days Oct, Active busPIRone hydrochloride 10 mg oral tablet (20 sources) Start: 09-06-2023 take 2 tablets by mouth three times daily busPIRone (BUSPAR) 10 mg tablet Indications: Essential tremor , Anxiety Take 2 tablets (20 mg total) by mouth 3 (three) times a day. 540 tablet 4 09/06/2023 Active Start: 04-06-2023 take 1 tablet by mely th in the morning busPIRone (Buspar) 10 MG tablet Take 10 mg by mouth in the morning and 10 mg before bedtime. 04/06/2023 Active Start: 04-06-2023 End: 08-18-2024 take 2 tablets by mouth twice daily busPIRone (BUSPAR) 10 mg tablet Indications: Anxiety Take 2 tablets by mouth two times a day. 450 tablet 3 09/04/2023 08/18/2024 Discontinued Start: 08-10-2022 End: 08-18-2025 take 1 tablet by mouth three times daily busPIRone (BUSPAR) 10 mg tablet Indications: Anxiety Take 1 tablet by mouth three times a day. 270 tablet 3 08/18/2024 08/18/2025 Active Start: 05-02-2022 End: 05-02-2023 take 1 tablet [...] mg / cholecalciferol 200 unt oral tablet (20 sources) Vitamin D Start: 09-11-20 End: 08-18-20 24 take 1 tablet by mouth once Calcium Carbonate-Vitamin D (Oyster Shell Calcium/D) 500-5 MG-MCG tablet Take 1 tablet by mouth 09/11/2023 Active cefuroxime 250 mg oral tablet (1 source) Cephalosporin Antibacterial Start: 09-11-20 21 take 1 tablet by mouth every twelve hours Cefuroxime Axetil 250 MG 1 tablet Orally every 12 hrs for 10 day(s) Sep, Active celecoxib 200 mg oral capsule (20 sources) Nonsteroidal Anti-inflammatory Drug Start: 02-19-20 24 take 1 capsule by mouth twice daily as needed for pain celecoxib (CeleBREX) 200 MG capsule TAKE 1 CAPSULE BY MOUTH TWICE DAILY NEEDED FOR PAIN 02/19/2024 Active Start: 09-06-2023 End: 11-21-2023 take 1 capsule by mouth in the morning celecoxib (CeleBREX) 200 mg capsule Indications: Arthritis TAKE 1 CAPSULE BY MOUTH IN THE MORNING then TAKE 1 CAPSULE BY MOUTH BEFORE bedtime 90 capsule 4 11/21/2023 Active Start: 03-11-2022 End: 04-22-2024 take 200 mg by mouth once daily Celecoxib Active 200 M G PO Daily August 09, 2024 12:00am take 1 capsule by mo uth twice daily celecoxib (CELEBREX) 200 mg capsule Take 200 mg by mouth twice daily. 0 Active Comment on above: Take 200 mg by mouth twice daily. Take 200 mg by mouth once daily. cetirizine hydrochloride 10 mg oral tablet (20 sources) Histamine-1 Receptor Antagonist Start: take 1 tablet by mouth once daily cetirizine (ZyrTEC) 10 MG tablet Indications: Allergic rhinitis due to pollen, unspecified seasonality Take 1 tablet (10 mg) by mouth Daily 100 tablet 3 08/05/2024 Active Start: 01-18-2022 End: 11-09-2022 take 1 tablet by mouth once daily cetirizine (ZYRTEC) 10 mg tablet Take 10 mg by mouth once daily. 0 01/18/2022 11/09/2022 Discontinued Start: 04-09-2018 End: 08-09-2024 take 1 capsule by mouth every twenty-four hours ZyrTEC Allergy 10 MG 1 capsule Orally Once a day for 90 days Oct, Active Comment on above: Take 10 mg by mouth once daily. cholecalciferol 0.05 mg oral capsule (20 sources) Vitamin D Start: take 50 ug by mouth once daily Cholecalciferol (Vitamin D3) Active 50 MCG PO Daily August 09, 2024 12:00am Start: 08-24-2023 take 1 capsule by mo uth once in the morning cholecalciferol 125 MCG (5000 UT) capsule Indications: Vitamin D deficiency, unspecified TAKE 1 CAPSULE BY MOUTH IN THE MORNING 60 capsule 02/12/2024 Active Comment on above: Take 1 capsule by mo uth every morning. clonazePAM 0.5 mg oral tablet (4 sources) Benzodiazepine Start: 10-06-20 24 End: 11-05-19 25 take 1 tablet by mouth in the morning clonazePAM (KlonoPIN) 0.5 MG tablet Indications: Essential tremor Take 1 tablet (0.5 mg) by mouth in the morning and 1 tablet (0.5 mg) before bedtime. 60 tablet 10/06/2024 11/05/2024 Active clopidogrel 75 mg oral tablet (1 source) P2Y12 Platelet Inhibitor Start: 03-12-20 22 take 75 mg by mouth once daily Clopidogrel Active 75 MG PO Daily 90 90 March 12, 2022 12:00am Further refills per PCP. diclofenac sodium 0.01 mg/mg topical gel (1 source) Nonsteroidal Anti-inflammatory Drug Start: 03-12-20 apply 2 g topically three times daily Diclofenac Sodium Active 2 GM TOPICAL Three times daily 100 March 12, 2022 12:00am docusate sodium 100 mg oral capsule (19 sources) Start: 03-11-20 15 take 1 capsule by mouth every twelve hours as needed docusate sodium (COLACE) 100 mg capsule Take 1 capsule by mouth twice daily as needed for Constipation. 60 capsule 0 03/11/2015 Active Comment on above: Take 1 capsule by [facility] twice daily as needed for Constipation. doxycycline hyclate 100 mg oral capsule (5 sources) Tetracycline-class Drug Start: 08-09-20 24 take 1 capsule by mouth every twelve hours doxycycline hyclate (VIBRAMYCIN) 100 mg capsule Take 1 capsule by mouth every 12 hours. 08/09/2024 Active Start: 08-09-2024 take 100 mg by mouth twice daily Doxycycline Hyclate Active 100 MG PO Twice daily 24 08August 09, 2024 12:00am fluticasone propionate 0.05 mg/actuat metered dose nasal spray (20 sources) Corticosteroid Start: 09-06-2023 take 1 spray(s) nasal route in the morning fluticasone propionate (FLONASE) 50 mcg/actuation nasal spray Indications: Allergic rhinitis due to other allergic trigger, unspecified seasonality Administer 1 spray into each nostril in the morning. 36.4 mL 4 09/06/2023 Active take 1 spray(s) nasa l route in the morning fluticasone (Flonase) 50 MCG/ACT nasal spray Administer 1 spray into each nostril in the morning. Active take 1 spray(s) nasal route once daily fluticasone (FLONASE) 50 mcg/actuation nasal spray Use 1 [place] in each nostril once daily. Active take 1 spray(s) nasal route once daily Flonase 50 MCG/ACT 1 spray in each nostril Nasally Once a day for 30 day(s) Active Comment on above: Use 1 [place] in each nostril once daily. Neuriva - (1 source) Neuriva - as dir ected Orally Active omeprazole 20 mg delayed release oral capsule (20 sources) Proton Pump Inhibitor Start: 3 End: 4 take 1 capsule by mouth in the morning omeprazole (PriLOSEC) 20 mg capsule Indications: Gastroesophageal reflux disease, unspecified whether esophagitis present take 1 capsule by mouth in the morning 90 capsule 4 08/14/2024 Active Comment on above: Take 20 mg by mouth once daily. predniSONE 20 mg oral tablet (4 sources) Start: 3 take 1 tablet by mouth every twelve hours predniSONE 20 MG 1 tablet Orally bid for 5 day(s) March, Active Start: 10-18-2021 take 2 tablets by mo [facility] every twenty-four hours predniSONE 20 MG 2 tablets Orally Once a day for 5 days Oct, Active tiZANidine 2 mg oral tablet (1 source) Central alpha-2 Adrenergic Agonist Start: 04-01-2023 take 1 tablet by mouth every eight [...] on above: TAKE 1 TABLET BY MELY TWICE DAILY (IN THE MORNING and AT BEDTIME) atorvastatin 80 mg oral tablet (20 sources) HMG-CoA Reductase Inhibitor Start: 02-08-2023 End: 03-05-2024 atorvastatin (LIPITOR) 80 mg tablet 0.5 tablets once daily. 0 02/08/2023 03/05/2024 Discontinued Start: 03-13-2022 End: 02-08-2023 atorvastatin (LIPITOR) 80 mg tablet [...] 24 HR. 0.5 tablets once sam ly. D1-uzcus-I93-coffe e-phosphatid (NEURIVA PLUS BRAIN PERFORMANCE) 1.7 mg-400 mcg- 2.4 mcg cap (6 sources) Start: 03-04-2024 End: 08-18-2024 take 1 capsule by mouth once daily [id number]-ga osphatid (NEURIVA PLUS BRAIN PERFORMANCE) 1.7 mg-400 mcg- 2.4 mcg cap Take 1 capsule by mouth once daily. 03/04/2024 08/18/2024 Discontinued Start: 03-04-2024 take 1 capsule by mouth once daily [id number]-mnzowneyrf (NEURIVA PLUS BRAIN PERFORMANCE) 1.7 mg-400 mcg- 2.4 mcg cap Take 1 capsule by mouth once daily. 03/04/2024 Active Start: 03-04-2024 take 1 capsule by mouth once daily [id number]-ipfrgckddb (NEURIVA PLUS BRAIN PERFORMANCE) 1.7 mg-400 mcg- 2.4 mcg cap Take 1 capsule by mouth once daily. 0 03/04/2024 Active B6/folic/B12/coffee/phosphat id (NEURIVA PLUS ORAL) (3 sources) End: 04-22-2024 B6/folic/B12/coffee/phosphat id (NEURIVA PLUS ORAL) Take by mouth. 0 [...] toxin type b 5,000 Units injection (MYOBLOC) fexofenadine hydrochloride 180 mg oral tablet (4 sources) Histamine-1 Receptor Antagonist Start: 02-08-2023 End: 09-04-2023 take 1 tablet by mouth once daily fexofenadine (JENNY ALLERGY) 180 mg tablet Take 1 tablet by mouth once daily. 0 02/08/2023 09/04/2023 Discontinued (Course of therapy completed) Comment on above: Take 1 tablet by mely once daily. 24 hr metoprolol succinate 25 mg extended release oral tablet (1 source) beta-Adrenergic Yuli Start: 07-25-2018 End: 03-11-2022 take 1 tablet by mouth once daily Metoprolol Succinate (Toprol Xl) 25 mg tablet extended release 24 hr Discontinued 25 MG PO Daily July 25, 2018 12:00am March 11, 2022 10:20pm propranolol hydrochloride 10 mg oral tablet (1 source) beta-Adrenergic Yuli Start: 04-09-2018 End: 04-10-2018 take 10 mg by mouth three times daily Propranolol Discontinued 10 MG PO Three times daily April 09, 2018 12:00am April 10, 2018 1:30pm tamsulosin hydrochloride 0.4 mg oral capsule (3 sources) alpha-Adrenergic Yuli Start: 04-09-2018 End: 07-24-2018 take 0.4 mg by mouth once daily Tamsulosin Discontinued 0.4 MG PO Daily April 09, 2018 12:00am July 24, 2018 9:14am Toradol 30 mg/ml (1 source) Start: 04-01-2023 Toradol 30 mg/ ml March, 30 mg Problems Active Problems Problem Classification Problem Date Documented Date Episodic/Chronic Acquired foot deformities (20 sources) Hammer toe; Translations: [Other hammer toe(s) (acquired), unspecified foot] Onset: 12-26-2023 12-26-2023 Chronic Anxiety disorders (20 sources) Anxiety; Translations: [Anxiety disorder, unspecified] Onset: 05-31-2023 Chronic Cardiac dysrhythmias (8 sources) Unspecified atrial flutter; Translations: [Paroxysmal atrial fibrillation] Onset: 08-15-2018 03-12-2022 Chronic Disorders of lipid metabolism (20 sources) Mixed hyperlipidemia; Translations: [Mixed hyperlipidemia] Onset: 10-18-2021 Resolved: 10-18-2021 Chronic Diverticulosis and diverticulitis (20 sources) Diverticulosis of colon; Translations: [Diverticulosis of large intestine without perforation or abscess without bleeding] Onset: 05-26-2008 12-26-2023 Chronic Esophageal disorders (7 sources) Gastroesophageal reflux disease; Translations: [Gastro-esophageal reflux disease without esophagitis] Onset: 10-06-2024 08-09-2024 Chronic Esophageal disorders (1 source) Esophageal disorders Onset: 08-15-2018 Essential hypertension (6 sources) Hypertensive disorder; Translations: [Essential (primary) hypertension] Onset: 10-06-2024 04-10-2018 Chronic Hyperplasia of prostate (20 sources) Benign prostatic hypertrophy with outflow obstruction; Translations: [Benign prostatic hyperplasia with lower urinary tract symptoms] Onset: 04-07-2016 04-07-2016 Chronic Mycoses (1 source) Pain in toe; Translations: [Tinea unguium] 08-07-2024 Episodic Nutritional deficiencies (2 sources) Vitamin D deficiency; Translations: [Vitamin D deficiency, unspecified] 11-21-2023 Chronic Osteoarthritis (11 sources) Arthritis; Translations: [Unspecified osteoarthritis, unspecified site] 11-21-2023 Chronic Other circulatory disease (6 sources) Orthostatic hypotension; Translations: [Orthostatic hypotension] Onset: 10-06-2024 10-17-2023 Episodic Other connective tissue disease (6 sources) Neurological symptom; Translations: [Unspecified symptoms and signs involving the nervous system] Onset: 10-06-2024 10-17-2023 Episodic Other ear and sense organ disorders (20 sources) Sensorineural hearing loss, bilateral; Translations: [Sensorineural hearing loss, bilateral] Onset: 12-26-2023 12-26-2023 Chronic Other hereditary and degenerative nervous system [...] Onset: 09-29-2014 Chronic Other nervous system disorders (20 sources) Carpal tunnel syndrome; Translations: [Carpal tunnel syndrome, unspecified upper limb] Onset: 05-26-2008 12-26-2023 Chronic Other nervous system disorders (20 sources) Lesion of ulnar nerve, left upper limb; Translations: [Lesion of ulnar nerve] Onset: 12-26-2023 12-26-2023 Chronic Other nervous system disorders (6 sources) Compression injury of nerve; 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, unspecified] Onset: 10-06-2024 08-09-2024 Chronic Other nervous system disorders (1 source) Impaired cognition; Translations: [Other symptoms and signs involving cognitive functions and awareness] 03-04-2024 Episodic Other nervous system disorders (6 sources) Tremor; Translations: [Tremor, unspecified] Onset: 10-06-2024 03-12-2022 Episodic Other nutritional; endocrine; and metabolic disorders (6 sources) Obesity; Translations: [Obesity, unspecified] Onset: 10-06-2024 10-17-2023 Chronic Other skin disorders (15 sources) Excessive sweating; Translations: [Generalized hyperhidrosis] Onset: 10-06-2024 08-09-2024 Episodic Other upper respiratory disease (15 sources) Seasonal allergy; Translations: [Other seasonal allergic rhinitis] Onset: 10-06-2024 08-09-2024 Chronic Other upper respiratory disease (2 sources) Other seasonal allergic rhinitis Onset: 10-18-2021 Resolved: 12-19-2021 Chronic Other upper respiratory disease (20 sources) Allergic rhinitis; Translations: [Allergic rhinitis, unspecified] Onset: 05-26-2008 12-26-2023 Chronic Other upper respiratory infections (9 sources) Upper respiratory infection; Translations: [URI (upper respiratory infection)] Episodic Residual codes; unclassified (1 source) Presence of other specified functional implants; Translations: [S/P deep brain stimulator placement] Onset: 02-29-2016 Chronic Rheumatoid arthritis and related disease (20 sources) Rheumatoid arthritis; Translations: [Rheumatoid arthritis, unspecified] Onset: 04-29-2020 12-26-2023 Chronic Sprains and strains (1 source) Strain [...] / Z68.27(ICD-9) Onset: 08-15-2018 Unclassified (1 source) FDC (current) use of aspirin / Z79.82(ICD-9) Onset: [...] [Calculus of ureter] Onset: 02-25-2015 03-11-2015 Episodic Complication of device; implant or graft (20 sources) Mechanical complication of nervous system implant; Translations: [Other mechanical complication of implanted electronic neurostimulator, generator, initial encounter] Onset: 05-04-2020 12-26-2023 Episodic Disorders of teeth and jaw (1 [...] Onset: 09-11-2021 Resolved: 09-11-2021 Episodic Mood disorders (2 sources) Mood disorders Onset: 07-19-2023 07-19-2023 Nonspecific chest pain (20 sources) Chest pain; Translations: [Chest pain, unspecified] Onset: 06-17-2024 06-17-2024 Episodic Other aftercare (1 source) Encounter for removal of sutures Onset: 01-16-2022 Resolved: 01-16-2022 Episodic Other circulatory disease (20 sources) H/O: atrial fibrillation; Translations: [Personal history of other diseases of the circulatory system] Onset: 12-06-2017 12-06-2017 Episodic Other connective tissue disease (1 source) Unspecified symptoms and signs involving the nervous system; Translations: [R29.90 - Unspecified symptoms and signs involving the nervous system] Onset: 03-11-2022 Episodic Other nervous system disorders (20 sources) Abnormal gait; Translations: [Unspecified abnormalities of gait and mobility] Onset: 04-30-2024 03-04-2024 Episodic Other nervous system disorders (20 sources) Poor balance; Translations: [Other abnormalities of gait and mobility] Onset: 04-30-2024 04-30-2024 Episodic Spondylosis; intervertebral disc disorders; other back problems (4 sources) Cervicalgia; Translations: [CERVICALGIA] Onset: 04-06-2017 Episodic Unclassified (1 source) Cough R05.9 Viral infection (1 source) COVID-19 Results Test Name Value Interpretation Reference Range Facility [facility] 09-23-2024 NAIF Telephone (NREUS2) ---- RODOLFOYORDAN Costello ([id number]) 1945 M Date Time Provider Department 09/23/24 MILA ANDINO CURTISS2 During your visit today, we recorded the following information about you: Lupis Lee 09/23/2024 9:09 AM Signed calling to say that since last DBS adjustment, Elier is shaking more. She wants to be seen again BETHANIE. She requests a message be sent to Mila about this. Mila Andino APRN.LAURIE 09/23/2024 1:27 PM Signed He has the ability to go up on the DBS or he can switch back to the settings he came in on last time (Group A) since they felt it was better. I will have him contacted about this and then we can bring him in when I have an appointment available. Mila Andino APRN-Lucy Hurtado RN 09/24/2024 10:09 AM Signed Message from provider given. Patient does not recall how to make change program. Spouse has not used the controller at all and does not know how to make changes. Estrella Caballero MA 09/25/2024 9:51 AM Signed Spoke with pt. He advised he is shaking so bad, he can't do anything. Also advised again that they do not know how to make changes on sas programmer analyst. Pt is in need for a callback to help with programming BETHANIE. Amna Sandoval APRN.[employer] 09/25/2024 10:59 AM Signed Jean Marie Pace from [email or web address] is calling now to discuss programming changes he can make at home. Amna Sandoval APRN.Amna Mendoza APRN.LAURIE 09/25/2024 11:51 AM Signed Jean Marie Pace has tried calling both numbers in chart. One was wrong and the other is saying its disconnected. Will try to find out correct number. Estrella Caballero MA 09/30/2024 10:31 AM Signed Spoke with pt at number on file. He advised he is doing much better after programming with [employer]. (Jean Marie did reach him) Mila Andino APRN.LAURIE 09/30/2024 11:06 AM Signed This has been noted. Mila Andino APRN-[employer] Allergies As of Date: 09/23/2024 Noted Allergy Reaction BEE STING 11/01/2021 2 - Rash PENICILLINS 03/16/2014 4 - Hives SEASONAL ALLERGIES 04/29/2020 16 - Unknown Date Reviewed: 08/18/2024 Reviewed by: Mila Andino APRN.[employer] - Fully Assessed Reason for Visit: Question [1327] Prescriptions as of 09/30/2024 - busPIRone (BUSPAR) 10 mg tablet Take 1 tablet by mouth three times a day. - doxycycline hyclate (VIBRAMYCIN) 100 mg capsule Take 1 capsule by mouth every 12 hours. - cetirizine (ZYRTEC) 10 mg tablet once daily. - celecoxib (CELEBREX) 200 mg capsule take 1 capsule by mouth twice daily as needed for pain - Cholecalciferol, Vitamin D3, 125 mcg (5,000 unit) cap Take 1 capsule by mouth every morning. - omeprazole (PRILOSEC) 20 mg capsule Take 20 mg by mouth once daily. - aspirin, enteric coated (ASPIRIN, ENTERIC COATED) 81 mg EC tablet Take 81 mg by mouth once daily. - fluticasone (FLONASE) 50 mcg/actuation nasal spray Use 1 [place] in each nostril once daily. - docusate sodium (COLACE) 100 mg capsule Take 1 capsule by mouth twice daily as needed for Constipation. Problem List As Of Date 09/23/2024 Noted Resolved Essential tremor [G25.0] 09/29/2014 Persistent headaches [R51.9] 12/29/2014 Head ache [R51.9] 12/30/2014 Ureteral calculus [N20.1] 02/25/2015 Renal calculi [N20.0] 03/23/2015 Calculus of kidney [N20.0] 03/23/2015 Microscopic hematuria [R31.29] 03/23/2015 S/P deep brain stimulator placement [Z96.89] 02/29/2016 BPH w urinary obs/LUTS [N40.1, N13.8] 04/07/2016 Recurrent nephrolithiasis [N20.0] 04/07/2016 History of atrial fibrillation [Z86.79] 12/06/2017 Encounter Status:Closed by MILA ANDINO on 09/23/24 [facility] Telephone (NRMDN) ---- YORDAN MARROQUIN ([id number]) 1945 M Date Time Provider Department 09/23/24 MILA ANDINO During your visit today, we recorded the following information about you: Francy Ding 09/23/2024 10:57 AM Signed Patients contacted the office stating the patient has been shaking since the most recent DBS Adjustment with Mila on 08-18-2024 and when looking up an appointment with Mila for a DBS Adjustment the soonest available is 12-04-2024. Is there anything else that can be done to help the patient reduce the shaking. I offered sooner available appointments for a DBS adjustment at the [facility] and the patients declined and stated they only want to come to [place]. Please advise. Lucy Walker RN 09/24/2024 10:09 AM Signed See telephone encounter 09/23/24 Allergies As of Date: 09/23/2024 Noted Allergy Reaction BEE STING 11/01/2021 2 - Rash PENICILLINS 03/16/2014 4 - Hives SEASONAL ALLERGIES 04/29/2020 16 - Unknown Date Reviewed: 08/18/2024 Reviewed by: Mila Andino APRN.GIS DATABASE ADMINISTRATOR - Fully Assessed Prescriptions as of 09/24/2024 - busPIRone (BUSPAR) 10 mg tablet Take 1 tablet by mouth three times a day. - doxycycline hyclate (VIBRAMYCIN) 100 mg capsule Take 1 capsule by mouth every 12 hours. - cetirizine (ZYRTEC) 10 mg tablet once daily. - celecoxib (CELEBREX) 200 mg capsule take 1 capsule by mouth twice daily as needed for pain - Cholecalciferol, Vitamin D3, 125 mcg (5,000 unit) cap Take 1 capsule by mouth every morning. - omeprazole (PRILOSEC) 20 mg capsule Take 20 mg by mouth once daily. - aspirin, enteric coated (ASPIRIN, ENTERIC COATED) 81 mg EC tablet Take 81 mg by mouth once daily. - fluticasone (FLONASE) 50 mcg/actuation nasal spray Use 1 [place] in each nostril once daily. - docusate sodium (COLACE) 100 mg capsule Take 1 capsule by mouth twice daily as needed for Constipation. 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 [phone] Lucy Walker RN 09/03/2024 12:04 PM Signed Scot would like to know if it is it ok to use moist hot pack on neck Right VIM DBS implanted in 2013 Mila Andino APRN.LAURIE 09/05/2024 4:10 PM Signed I was in communication with [employer] [facility] who spoke to [employer]. Provided it is not extremely heavy causing stress on the wires then it is not anticipated that it should causes a problem. If they have any other questions about this or any other techniques, the physical therapist should call [employer] services for health care providers at . Also, the therapist should be aware that therapeutic ultrasound/diatherm y should never be used. Scot will be contacted regarding this. Mila Andino APRN-Lucy Hurtado, ELÍAS 09/08/2024 9:39 AM Signed Call to therapist, message from provider given. Number for [employer] given Estrella Caballero MA 09/10/2024 10:20 AM Signed Reviewed and signed plan of care with special attention to treatment modalities that are contraindicated faxed to [facility] at [phone] Attn: Svetlana with confirmation Allergies As of Date: 09/03/2024 Noted Allergy Reaction BEE STING 11/01/2021 2 - Rash PENICILLINS 03/16/2014 4 - Hives SEASONAL ALLERGIES 04/29/2020 16 - Unknown Date Reviewed: 08/18/2024 Reviewed by: Mila Andino APRN.GIS DATABASE ADMINISTRATOR - Fully Assessed Reason for Visit: Return Call Requested [Other] Cmt: [facility] PT regarding DBS Prescriptions as of 09/10/2024 - busPIRone (BUSPAR) 10 mg tablet Take 1 tablet by mouth three times a day. - doxycycline hyclate (VIBRAMYCIN) 100 mg capsule Take 1 capsule by mouth every 12 hours. - cetirizine (ZYRTEC) 10 mg tablet once daily. - celecoxib (CELEBREX) 200 mg capsule take 1 capsule by mouth twice daily as needed for pain - Cholecalciferol, Vitamin D3, 125 mcg (5,000 unit) cap Take 1 capsule by mouth every morning. - omeprazole (PRILOSEC) 20 mg capsule Take 20 mg by mouth once daily. - aspirin, enteric coated (ASPIRIN, ENTERIC COATED) 81 mg EC tablet Take 81 mg by mouth once daily. - fluticasone (FLONASE) 50 mcg/actuation nasal spray Use 1 [place] in each nostril once daily. - docusate sodium (COLACE) 100 mg capsule Take 1 capsule by mouth twice daily as needed for Constipation. 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, N13.8] 04/07/2016 Recurrent nephrolithiasis [N20.0] 04/07/2016 History of atrial fibrillation [Z86.79] 12/06/2017 Encounter Status:Closed by LUCY WALKER on 09/03/24 [facility] CNOVon 08-18-2024 CNOV Office Visit (NRMDN) ---- YORDAN MARROQUIN ([id number]) 1945 M Date Time Provider Department 08/18/24 1:00 PM MILA ANDINO During your visit today, we recorded the following information about you: Pulse Blood pressure Weight Height 71/minute 129/76 99.7 kg 1.88 m Mila Andino APRN.GIS DATABASE ADMINISTRATOR 08/24/2024 7:07 PM Signed [facility] - FOLLOW UP EVALUATION Ny Hoyos DO [address] [place] [address] Dear Ny Hoyos DO: I had the pleasure of seeing Mr. Marroquin for follow-up today. As you know he is a 78 year old left-handed male with a history of essential tremor since 2008. He had Right VIM DBS implanted in 2013. His battery was last replaced in January 2022 with an RC. He is seen with his . Subjective Previous Plan-04/22/2024 Visit: Essential tremor: Continue current DBS settings Walking and balance: I have ordered physical therapy for you Cognition: We will continue to monitor Anxiety: Continue Buspar 10mg two times daily Interval History: His tremor is much worse. He tried the Buspar three times daily again as he was having a lot of anxiety and this time he is tolerating it better. His balance is still a problem. He did not finish his physical therapy as he was hospitalized for chest pain. Movement Disorders Medications Schedule - as of the start of the visit: Medications 6am 4pm Buspar 10mg 1 1 Questionnaires: In addition, the following activities of daily living that may be affected by tremors were evaluated: Speaking: Affected (severe) Feeding: Bringing Liquids to Mouth: Affected (severe) Hygiene: Affected (moderate) Dressing: Affected (moderate) Writing: Affected (marked) Working: Affected (moderate) Number of falls in the Last Month: 0 Mood/Behavior Depression: PHQ-9 Score: 7 usually representing mild (5-9) depression. Anxiety: Finally, the following table shows the patient's overall global physical and mental health using the PROMIS scale: PROMIS-10 Flowsheet Row Office Visit from 08/18/2024 in Neurology Office Visit from 03/04/2024 in Neurology Global Physical Health T Score 42.3 50.8 Global Mental Health T Score -- 43.5 0-10 Standard Pain Scale 3 3 *PROMIS-10 scoring scale: mean = 50, over 50 is above average, under 50 is below average ALLERGIES Allergen Reactions Bee Sting Rash Penicillins Hives Seasonal Allergies Unknown Current Outpatient Medications Medication Sig doxycycline hyclate (VIBRAMYCIN) 100 mg capsule Take 1 capsule by mouth every 12 hours. cetirizine (ZYRTEC) 10 mg tablet once daily. celecoxib (CELEBREX) 200 mg capsule take 1 capsule by mouth twice daily as needed for pain Cholecalciferol, Vitamin D3, 125 mcg (5,000 unit) cap Take 1 capsule by mouth every morning. omeprazole (PRILOSEC) 20 mg capsule Take 20 mg by mouth once daily. aspirin, enteric coated (ASPIRIN, ENTERIC COATED) 81 mg EC tablet Take 81 mg by mouth once daily. fluticasone (FLONASE) 50 mcg/actuation nasal spray Use 1 [place] in each nostril once daily. docusate sodium (COLACE) 100 mg capsule Take 1 capsule by mouth twice daily as needed for Constipation. busPIRone (BUSPAR) 10 mg tablet Take 1 tablet by mouth three times a day. No current facility-administer ed medications for this visit. Objective Vital Signs: BP 129/76 (BP Site: Right Arm, BP Position: Sitting, BP Cuff Size: Regular Adult) Pulse 71 Ht 188 cm (6' 2 ) Wt 99.7 kg (219 lb 12.8 oz) SpO2 94% BMI 28.22 kg/m? Orthostatic Vitals: None for this encounter Weight: 99.7 kg (219 lb 12.8 oz) Height: 188 cm (6' 2 ) No LMP for male patient. Body mass index is 28.22 kg/m?. Movement Disorders Scales Performed: Xrzx-Fxbfgx-Pbldl Tremor Scale Medication OFF/ON Time of Assessment Time of Last Medication Last Medication Taken DBS_Right DBS_Left Face Tremor At Rest: 0 - None. Tongue Tremor At Rest: 0 - None. Posture Holdin - None. Voice Tremor Action and Intention: 0 - None. Head Tremor At Rest: 4 - Severe amplitude. Posture Holdin - Severe amplitude. RUE Tremor At Rest: 0 - None. Posture Holdin - Slight. May be intermittent. Action and Intention: 2 - Moderate amplitude. May be intermittent. LUE Tremor At Rest: 0 - None. Posture Holdin - None. Action and Intention: 1 - Slight. May be intermittent. Trunk Tremor At Rest: 0 - None. Posture Holdin - None. RLE Tremor At Rest: 0 - None. Posture Holdin - None. Action and Intention: 0 - None. LLE Tremor At Rest: 0 - None. Posture Holdin - None Action and Intention: 0 - None. Tremor Exam Subscore: 12 Pertinent Studies 04/19/21 B12 [id number] 06/09/[address] Impression: Right DBS placement with resolution of pneumocephalus. No acute intracranial process. Assessment and Plan: Assessment Mr. Marroquin is (more content not included)... [facility] CNOVon 04-22-2024 CNOV Office Visit (NRMDN) ---- RODOLFOYORDAN Costello ([id number]) 1945 M Date Time Provider Department 04/22/24 2:30 PM MILA ANDINO During your visit today, we recorded the following information about you: Pulse Blood pressure Weight Height 60/minute 116/57 97.5 kg 1.88 m Mila Andino APRN.GIS DATABASE ADMINISTRATOR 04/22/2024 6:48 PM Signed [facility] - FOLLOW UP EVALUATION Ny Hoyos DO [address] [place] [address] Dear Ny E Schwerer, DO: I had [...] Allergies Unknown Current Outpatient Medications Medication Sig kmgekst-aihyzggeg-q itamin D3 500 mg-5 mcg (200 unit) per tablet Take 1 tablet by mouth. V6-kgakq-R62-coffee -phosphatid (NEURIVA PLUS BRAIN PERFORMANCE) 1.7 mg-400 [...] (FLONASE) 50 mcg/actuation nasal spray Use 1 [place] in each nostril once daily. docusate sodium [...] Weight: 97.5 (more content not included)... [facility] 04-22-2024 [facility] ---- RODOLFOYORDAN Costello ([id number]) 1945 M Date Time Provider Department 04/22/24 MILA ANDINO During your visit today, we recorded the following information about you: Soumya Hugo 04/22/2024 2:58 PM Addendum Per office visit on 04/22/2024, patient will be due for DBS adjustment around 02/03/2025. Provider's schedule not released past 12/05/2024 at this time. Recall letter generated for 07/23/2024. Patient requesting we call him to schedule appointment. Patient states he prefers afternoon appts. Soumya Humphrey 08/05/2024 8:59 AM Signed Per appt desk, Patient is scheduled for DBS adjustment on 08/18/2024. She appoint can be scheduled after this visit. Soumya Hugo Allergies As of Date: 04/22/2024 Noted Allergy Reaction BEE STING 11/01/2021 2 - Rash PENICILLINS 03/16/2014 4 - Hives SEASONAL ALLERGIES 04/29/2020 16 - Unknown Date Reviewed: 04/22/2024 Reviewed by: Mila Andino APRN.GIS DATABASE ADMINISTRATOR - Fully Assessed Reason for Visit: Appointment [186] Prescriptions as of 08/05/2024 - boczsyw-earpfloee-q itamin D3 500 mg-5 mcg (200 unit) per tablet Take 1 tablet by mouth. - A0-fwhwh-T86-coffee -phosphatid (NEURIVA PLUS BRAIN PERFORMANCE) 1.7 mg-400 mcg- 2.4 mcg cap Take 1 capsule by mouth once daily. - busPIRone (BUSPAR) 10 mg tablet Take 2 tablets by mouth two times a day. - Cholecalciferol, Vitamin D3, 125 mcg (5,000 unit) cap Take 1 capsule by mouth every morning. - omeprazole (PRILOSEC) 20 mg capsule Take 20 mg by mouth once daily. - aspirin, enteric coated (ASPIRIN, ENTERIC COATED) 81 mg EC tablet Take 81 mg by mouth once daily. - fluticasone (FLONASE) 50 mcg/actuation nasal spray Use 1 [place] in each nostril once daily. - docusate sodium (COLACE) 100 mg capsule Take 1 capsule by mouth twice daily as needed for Constipation. 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 ---- YORDAN MARROQUIN ([id number]) 1945 M Date Time Provider Department 04/09/24 [...] Date Reviewed: 03/04/2024 Reviewed by: Mila Andino APRN.GIS DATABASE ADMINISTRATOR - Fully Assessed Reason for Visit: Appointment [186] Prescriptions as of 04/09/2024 - J3-nhbrt-G05-coffee -phosphatid (NEURIVA PLUS BRAIN PERFORMANCE) 1.7 mg-400 [...] (FLONASE) 50 mcg/actuation nasal spray Use 1 [place] in each nostril once daily. - docusate [...] Encounter Status:Closed by ESTRELLA CABALLERO on 04/09/24 [facility] CNPNon 03-05-2024 CNPN Telephone (NREUS2) ---- YORDAN MARROQUIN ([id number]) 1945 M Date Time Provider Department 03/05/24 MILA ANDINOS2 During your visit today, we recorded the following information about you: Mykebriiluciano Reggie Darlin 03/05/2024 10:04 AM Signed Pt's called to report that he had labs done yesterday at outside facility. Looks like they are available in CareEverywhere. Mila Andino APRN.CNP 03/05/2024 4:47 PM Signed I reviewed the [...] provider given PCP is Dr. Lucas on [address] in [facility] Phone number [phone] Fax number [phone] Labs faxed with confirmation of transmission received Allergies As of Date: 03/05/2024 Noted Allergy Reaction BEE STING 11/01/2021 2 - Rash PENICILLINS 03/16/2014 4 - Hives SEASONAL ALLERGIES 04/29/2020 16 - Unknown Date Reviewed: 03/04/2024 Reviewed by: Mila Andino APRN.CNP - Fully Assessed Reason for Visit: Results [95] Cmt: Labs Prescriptions as of 03/06/2024 - G4-xfxmx-N11-coffee -phosphatid (NEURIVA PLUS BRAIN PERFORMANCE) 1.7 mg-400 [...] (FLONASE) 50 mcg/actuation nasal spray Use 1 [place] in each nostril once daily. - docusate [...] Encounter Status:Closed by MILA ANDINO on [facility]/05/24 [facility] (NRMDN[facility] ---- YORDAN MARROQUIN ([id number]) 1945 M Date Time Provider Department 03/04/24 1:30 PM MILA ANDINO During your visit today, we recorded the following information about you: Pulse Blood pressure Weight Height 62/minute 113/65 98.3 kg 1.88 m Mila Andino APRN.GIS DATABASE ADMINISTRATOR 03/05/2024 12:54 PM Signed [facility] - FOLLOW UP EVALUATION Ny Hoyos DO [address] [place] [address] Dear Ny Hoyos DO: I had the [...] (FLONASE) 50 mcg/actuation nasal spray Use 1 [place] in each nostril once daily. docusate sodium (COLACE) 100 mg capsule Take 1 capsule by mouth twice daily as needed for Constipation. K6-ctdfr-E12-coffee -phosphatid (NEURIVA PLUS BRAIN PERFORMANCE) 1.7 mg-400 [...] is 27.82 kg/m?. Movement Disorders Scales Performed: [place] Cognitive Assessment (MoCA) Visuospatial/Execut mónica 2 Naming 3 Attention 6 Language 0 Abstraction 1 Delayed Memory 2 Orientation 6 Education < or equal to 12 years (1 is true, 0 is false) 1 MoCA Total Score 21 Trtp-Qznnzn-Iwhhf Tremor Scale Voice Tremor Action and Intention: [...] No acute (more content not included)... [facility] COVID + FLU Quick Testingon 10-17-2022 SARS-CoV-2 (COVID-19) RNA LARISSA+probe Ql (Unsp spec) Positive [facility] [employer] Other COVID + FLU Quick Testing Negative [employer] Other [facility] echo transthoracicon [facility] echo transthoracic [facility] Main [place] [address] [place] [address] Echocardiogram Signed Patient: Yordan Marroquin SR MR#: [id number] : 1945 Acct:[id number] Age/Sex: 76 / M ADM Date: 03/11/22 Loc: Room: [address] [place] [address] Type: DIS INOo Attending Dr: Kyler Wood MD Ordering Provider: Zaki Cali DO Date of Service: 03/13/22/ [facility] echo transthoracic: CVA Copies to: DO Juanjose [...] By: Juanjose Limon MD 03/13/22 1543 Normal [facility] Lipid Panelon 03-13-2022 Cholesterol [Mass/Vol] 222 mg/dL High 140-200 [facility] Comment on above: Result Comment: Chol less than 200 mg/dl low risk Chol 201-239 mg/dl borderline risk Chol 240 mg/dl and greater high risk Performed By: #### L IPID #### [facility] [address] Cholesterol in HDL [Mass/Vol] 41 mg/dL Normal 29-71 [facility] Comment on above: Result Comment: HDL CHOL ATP-III CLASSIFICATION Cardiovascular Risk HDL > or equal to 60 mg/dL LOW HDL < 40 mg/dL HIGH Performed By: #### L IPID #### [facility] [address] [place] [id number] [facility] Cholesterol.total/C holesterol in HDL [Mass ratio] 5.4 {ratio} Normal <5.0 [facility] Comment on above: Result Comment: PERF ORMED BY: [place] [id number] PATHOLOGIST WATER ANALYST LUIS FELIPE STARK M.D. Performed By: #### L IPID #### [facility] [address] LDL Cholesterol,Calcula nandini 164 mg/dL High 0-100 [facility] Comment on above: Result Comment: LDL ATP III CLASSIFICATION LDL less than 100 mg/dL Optimal LDL 100-129 mg/dL Near or above optimal LDL 130-159 mg/dL Borderline high LDL 160-189 mg/dL High LDL greater than 189 mg/dL Very high Performed By: #### L IPID #### [facility] [address] Triglyceride w/Reflex 85 mg/dL Normal 35-149 [facility] Comment on above: Result Comment: TRIG ATP III CLASSIFICATION TRIG less than 150 mg/dL Normal TRIG 150-199 mg/dL Borderline high TRIG 200-500 mg/dL High TRIG greater than 500 mg/dL Very high Standard traceable to the Center for Disease Conrtrol and Prevention (CDC) test method. Performed By: #### L IPID #### [facility] [address] VLDL CHOLESTEROL 17 mg/dL Normal [facility] Comment on above: Performed By: #### L IPID #### [facility] [address] Basic Metabolic Panelon 05-0 Calcium [Mass/Vol] 8.5 mg/dL Normal 8.2-10.2 [facility] Comment on above: Performed By: #### B 12, T4F, TSH3, A1C WTH eA #### [facility] [address] [place] [address] [place] Chloride [Moles/Vol] 105 mmol/L Normal 95-114 [facility] Comment on above: Performed By: #### B 12, T4F, TSH3, A1C WTH eA #### [facility] [address] [place] [address] [place] CO2 [Moles/Vol] 24.2 mmol/L Normal 22.0-30.0 [facility] Comment on above: Performed By: #### B 12, T4F, TSH3, A1C WTH eA #### [facility] [address] Creatinine [Mass/Vol] 0.68 mg/dL Normal 0.64-1.27 [facility] Comment on above: Performed By: #### B 12, T4F, TSH3, A1C WTH eA #### [facility] [address] [place] [address] [place] Creatinine Clr Calc Pharmacy 95.36 [facility] Comment on above: Performed By: #### B 12, T4F, TSH3, A1C WTH eA #### [facility] [address] Estimated GFR ( Naz > 60 [facility] Comment on above: Result Comment: GFR estimated reference range: According to KDOQI guidelines, <60 ml/min/1.73m2 is sufficient to diagnose a patient with chronic kidney disease. Performed By: #### B 12, T4F, TSH3, A1C WTH eA #### [address] Estimated GFR (Non- Am > 60 [facility] Comment on above: Performed By: #### B 12, T4F, TSH3, A1C WTH eA #### [address] Glucose [Mass/Vol] 93 mg/dL Normal 70-100 [facility] Comment on above: Result Comment: [place] Glucose Reference Range is dependent on time and content of last meal. Glucose of more than 200 mg/dL in a nonstressed, ambulatory subject supports the diagnosis of Diabetes Mellitus. ADA recommended reference range Performed By: #### B 12, T4F, TSH3, A1C WTH eA #### [facility] [address] Potassium [Moles/Vol] 3.8 mmol/L Normal 3.5-5.1 [facility] Comment on above: Performed By: #### B 12, T4F, TSH3, A1C WTH eA #### [place] [address] [place] Sodium [Moles/Vol] 137 mmol/L Normal 136-146 [facility] Comment on above: Performed By: #### B 12, T4F, TSH3, A1C [facility] eA #### [facility] [address] Urea nitrogen [Mass/Vol] 10 mg/dL Normal 9-23 [facility] Comment on above: Performed By: #### B 12, T4F, TSH3, A1C [facility] eA #### [facility] [address] head stroke alert wo cono n 03-12-2022 CT head stroke alert wo con [facility] Main [place] [address] [place] [address] CT Scan Report Signed Patient: Yordan Marroquin SR MR#: [id number] : 1945 Acct:[id number] Age/Sex: 76 / M ADM Date: 03/11/22 Loc: Room: [address] [place] [address] Type: ADM INOo Attending Dr: Zaki Cali DO Ordering Provider: Willy Topete DO Date of Service: 03/11/22 CT/CT angio neck: left sided weakness ([id number]) CT/CT angio head: left sided weakness ([id number]) CT/CT head stroke alert wo con: left [...] carotid systems or major branches of the [place]. Impression dictated by: Sam Laurent Jr., Maurice03/12/2022 9:14 AM Dictation Location: [place] [address] Transcribed By: [facility] 03/12/22913 Dictated By: Sam Laurent Jr, DO 03/12/22 0859 Signed By: 03/12/22913 [facility] CT head/brain wo [facility] 03-12 [facility] [address] [place] Scan Report Signed Patient: Yordan Marroquin SR MR#: [id number] : 1945 Acct:[id number] Age/Sex: 76 / M ADM Date: 03/11/22 Loc: Room: [address] [place] [address] Type: ADM INOo Attending Dr: Zaki Cali [...] Laurent Jr., D.ONadia03/12/2022 9:18 AM Dictation Location: [place] [address] Transcribed By: [facility] 03/12/22917 Dictated By: Sam Laurent Jr, DO 03/12/22913 Signed By: 03/12/22917 Normal [facility] Complete Blood Count Auto Di ffon 03-12-2022 Basophils (Bld) [#/Vol] 0.1 10*3/uL Normal 0.0-0.2 [facility] Comment on above: Result Comment: PERF ORMED BY: [place] [address] PATHOLOGIST WATER ANALYST LUIS FELIPE STARK M.D. Performed By: #### B 12, T4F, TSH3, A1C WTH eA #### [address] Basophils/100 WBC (Bld) 1.2 % Normal . [facility] Comment on above: Performed By: #### B 12, T4F, TSH3, A1C WTH eA #### [address] Eosinophils (Bld) [#/Vol] 0.4 10*3/uL Normal 0.0-0.45 [facility] Comment on above: Performed By: #### B 12, T4F, TSH3, A1C WTH eA #### [address] Eosinophils/100 WBC (Bld) 6.5 % Normal . [facility] Comment on above: Performed By: #### B 12, T4F, TSH3, A1C WTH eA #### [address] Erythrocyte distribution width (RBC) [Ratio] 13.7 % Normal 12.0-14.8 [facility] Comment on above: Performed By: #### B 12, T4F, TSH3, A1C WTH eA #### [address] Hematocrit (Bld) [Volume fraction] 43.2 % Normal 38.8-50.0 [facility] Comment on above: Performed By: #### B 12, T4F, TSH3, A1C WTH eA #### [place] [address] [place] Hemoglobin (Bld) [Mass/Vol] 15.0 g/dL Normal 13.0-17.0 [facility] Comment on above: Performed By: #### B 12, T4F, TSH3, A1C WTH eA #### [place] [address] [place] Lymphocytes (Bld) [#/Vol] 2.2 10*3/uL Normal 1.00-4.8 [facility] Comment on above: Performed By: #### B 12, T4F, TSH3, A1C WTH eA #### [facility] [address] [place] [address] [place] Lymphocytes/100 WBC (Bld) 39.5 % Normal . [facility] Comment on above: Performed By: #### B 12, T4F, TSH3, A1C WTH eA #### [address] MCH (RBC) [Entitic mass] 32.1 pg Normal 27.5-35.2 [facility] Comment on above: Performed By: #### B 12, T4F, TSH3, A1C WTH eA #### [address] MCV (RBC) [Entitic vol] 92.3 fL Normal 83.5-101 [facility] Comment on above: Performed By: #### B 12, T4F, TSH3, A1C WTH eA #### [address] Mean Corpuscular HGB Conc 34.8 g/dL Normal 32.5-35.6 [facility] Comment on above: Performed By: #### B 12, T4F, TSH3, A1C WTH eA #### [place] [address] [place] Monocytes (Bld) [#/Vol] 0.5 10*3/uL Normal 0.0-0.8 [facility] Comment on above: Performed By: #### B 12, T4F, TSH3, A1C WTH eA #### [place] [address] [place] Monocytes/100 WBC (Bld) 8.5 % Normal . [facility] Comment on above: Performed By: #### B 12, T4F, TSH3, A1C WTH eA #### [place] [address] [place] Neutrophils (Bld) [#/Vol] 2.5 10*3/uL Normal 1.8-7.7 [facility] Comment on above: Performed By: #### B 12, T4F, TSH3, A1C WTH eA #### [facility] [address] Neutrophils/100 WBC (Bld) 44.3 % Normal . [facility] Comment on above: Performed By: #### B 12, T4F, TSH3, A1C WT eA #### [facility] [address] Nucleated RBC/100 WBC (Bld) [Ratio] 0.0 % Normal 0-0.5 [facility] Comment on above: Performed By: #### B 12, T4F, TSH3, A1C WT eA #### [address] Platelet mean volume (Bld) [Entitic vol] 8.5 fL Normal 6.6-10.1 [facility] Comment on above: Performed By: #### B 12, T4F, TSH3, A1C WT eA #### [facility] [address] [place] [address] [place] Platelets (Bld) [#/Vol] 283 10*3/uL Normal 150-450 [facility] Comment on above: Performed By: #### B 12, T4F, TSH3, A1C WTH eA #### [facility] [address] [place] [address] [place] RBC (Bld) [#/Vol] 4.68 10*6/uL Normal 3.90-5.60 [facility] Comment on above: Performed By: #### B 12, T4F, TSH3, A1C WT eA #### [facility] [address] [place] [address] [place] WBC (Bld) [#/Vol] 5.7 10*3/uL Normal 4.5-11.0 [facility] Comment on above: Performed By: #### B 12, T4F, TSH3, A1C WT eA #### [facility] [address] [place] [address] [place] Magnesiumon 05-08-2022 Magnesium [Mass/Vol] 2.0 mg/dL Normal 1.6-2.6 [facility] Comment on above: Result Comment: PERF ORMED BY: [place] [address] PATHOLOGIST WATER ANALYST LUIS FELIPE STARK M.D. Performed By: #### B 12, T4F, TSH3, A1C WTH eA #### [facility] [address] [place] [address] Vit. B12/Folate Profileon Cobalamin (Vitamin B12) [Mass/Vol] 422 pg/mL Normal 180-914 [facility] Comment on above: Order Comment: Comme nt Please add to previously drawn labs Performed By: #### V [id number] ####[address] Folate > 22.3 Normal >5.9 [facility] Comment on above: Order Comment: Comme nt Please add to previously drawn labs Result Comment: Maritza te reference range: >5.9 ng/ml The WHO technical consultation on folate and vitamin b12 deficiencies has determined that folate concentrations less than 4 ng/ml are considered deficient. PERFORMED BY: [place] [address] PATHOLOGIST WATER ANALYST LUIS FELIPE STARK M.D. Performed By: #### V [id number] ####[place] [id number] [facility] XR chest 1V portableon 03-12 XR chest 1V portable [facility] [place] [address] [place], [place] [id number] XRay Report Signed Patient: Yordan Marroquin SR MR#: [id number] : 1945 Acct:[id number] Age/Sex: 76 / M ADM Date: 03/11/22 Loc: Room: [address] [place] [address] Type: ADM INOo Attending Dr: Zaki Cali [...] Laurent Jr., D.ONadia03/12/2022 10:51 AM Dictation Location: [place] [address] Transcribed By: [facility] 03/12/22 1051 Dictated By: Sam Laurent Jr, DO 03/12/22 1046 Signed By: 03/12/22 1051 Normal [facility] A1C with Estimated Average G [facility] 03-11-2022 Glucose [Mass/Vol] 120 mg/dL Normal [facility] Comment on above: Result Comment: PERF ORMED BY: [place] [address] PATHOLOGIST WATER ANALYST LUIS FELIPE STARK M.D. Performed By: #### B 12, T4F, TSH3, A1C [facility] eA #### [facility] [address] HbA1c (Bld) [Mass fraction] 5.8 % High 4.3-5.6 [facility] Comment on above: Result Comment: Incr eased risk for diabetes: 5.7 - 6.4 diabetes: >6.4 glycemic control for adults with diabetes: <7.0 Performed By: #### B 12, T4F, TSH3, A1C [facility] eA #### [facility] [address] [place] [id number] [facility] B-Type Natriuretic Peptideon 03-11-2022 Natriuretic peptide B (Bld) [Mass/Vol] 35.0 pg/mL Normal 5-100 [facility] Comment on above: Result Comment: PERF ORMED BY: [facility] [address] [place] [address] PATHOLOGIST WATER ANALYST LUIS FELIPE STARK M.D. Performed By: #### C BC, PT, PTT, CMP, BNP, HS TROP ####[facility] Vmk[address]39 [address] COVID-19 Antigenon 2 COVID-19 Antigen Healthcare Worker?: [...] developed and its performance characteristic determined by [employer] and validated at [facility]. This test has not been FDA [...] for SARS Antigen by JENIFER PERFORMED BY: [facility] [address] [place] [address] PATHOLOGIST WATER ANALYST LUIS FELIPE STARK M.D. Normal [facility] Comment on above: Performed By: #### C OVID-19 SHEBA, SOFIANEG, COVID 19 [facility] #### [facility] [address] COVID-19 FRMCon 03-11-2022 SARS-CoV-2 (COVID-19) RNA LARISSA+probe Ql (Unsp spec) Negative Normal Negative [facility] Comment on above: Order Comment: Healt hcare Worker?: N Result Comment: Testing for SARS-CoV-2 by RT-PCR This test was developed and its performance characteristics determined by [employer] ([employer]) and validated at the [facility]. This test has not been FDA [...] is terminated or revoked sooner. PERFORMED BY: [facility] [address] [facility] [place] [id number] PATHOLOGIST WATER ANALYST LUIS FELIPE STARK M.D. Performed By: #### C OVID-19 SHEBA, SOFIANEG, COVID 19 [facility] ####[place] [id number] [place] [id number] [facility] Complete Blood Count Auto Di ffon 03-11-2022 Basophils (Bld) [#/Vol] 0.1 10*3/uL Normal 0.0-0.2 [facility] Comment on above: Result Comment: PERF ORMED BY: [facility] [address] [facility] [id number] PATHOLOGIST WATER ANALYST LUIS FELIPE STARK M.D. Performed By: #### C BC, PT, PTT, CMP, BNP, HS TROP ####[place] [address] [place] [id number] [place] Basophils/100 WBC (Bld) 1.2 % Normal . [facility] Comment on above: Performed By: #### C BC, PT, PTT, CMP, BNP, HS TROP ####[address] Eosinophils (Bld) [#/Vol] 0.4 10*3/uL Normal 0.0-0.45 [facility] Comment on above: Performed By: #### C BC, PT, PTT, CMP, BNP, HS TROP ####[address] Eosinophils/100 WBC (Bld) 5.5 % Normal . [facility] Comment on above: Performed By: #### C BC, PT, PTT, CMP, BNP, HS TROP ####[address] Erythrocyte distribution width (RBC) [Ratio] 13.9 % Normal 12.0-14.8 [facility] Comment on above: Performed By: #### C BC, PT, PTT, CMP, BNP, HS TROP ####[address] Hematocrit (Bld) [Volume fraction] 45.8 % Normal 38.8-50.0 [facility] Comment on above: Performed By: #### C BC, PT, PTT, CMP, BNP, HS TROP ####[address] Hemoglobin (Bld) [Mass/Vol] 15.6 g/dL Normal 13.0-17.0 [facility] Comment on above: Performed By: #### C BC, PT, PTT, CMP, BNP, HS TROP ####[place] [address] [place] Lymphocytes (Bld) [#/Vol] 2.9 10*3/uL Normal 1.00-4.8 [facility] Comment on above: Performed By: #### C BC, PT, PTT, CMP, BNP, HS TROP ####[address] Lymphocytes/100 WBC (Bld) 44.3 % Normal . [facility] Comment on above: Performed By: #### C BC, PT, PTT, CMP, BNP, HS TROP ####[address] MCH (RBC) [Entitic mass] 31.5 pg Normal 27.5-35.2 [facility] Comment on above: Performed By: #### C BC, PT, PTT, CMP, BNP, HS TROP ####[address] MCV (RBC) [Entitic vol] 92.1 fL Normal 83.5-101 [facility] Comment on above: Performed By: #### C BC, PT, PTT, CMP, BNP, HS TROP ####[address] Mean Corpuscular HGB Conc 34.2 g/dL Normal 32.5-35.6 [facility] Comment on above: Performed By: #### C BC, PT, PTT, CMP, BNP, HS TROP ####[address] Monocytes (Bld) [#/Vol] 0.5 10*3/uL Normal 0.0-0.8 [facility] Comment on above: Performed By: #### C BC, PT, PTT, CMP, BNP, HS TROP ####[address] Monocytes/100 WBC (Bld) 8.2 % Normal . [facility] Comment on above: Performed By: #### C BC, PT, PTT, CMP, BNP, HS TROP ####[address] Neutrophils (Bld) [#/Vol] 2.6 10*3/uL Normal 1.8-7.7 [facility] Comment on above: Performed By: #### C BC, PT, PTT, CMP, BNP, HS TROP ####[address] Neutrophils/100 WBC (Bld) 40.8 % Normal . [facility] Comment on above: Performed By: #### C BC, PT, PTT, CMP, BNP, HS TROP ####[address] Nucleated RBC/100 WBC (Bld) [Ratio] 0.2 % Normal 0-0.5 [facility] Comment on above: Performed By: #### C BC, PT, PTT, CMP, BNP, HS TROP ####[address] Platelet mean volume (Bld) [Entitic vol] 8.4 fL Normal 6.6-10.1 [facility] Comment on above: Performed By: #### C BC, PT, PTT, CMP, BNP, HS TROP ####[address] Platelets (Bld) [#/Vol] 325 10*3/uL Normal 150-450 [facility] Comment on above: Performed By: #### C BC, PT, PTT, CMP, BNP, HS TROP ####[address] RBC (Bld) [#/Vol] 4.97 10*6/uL Normal 3.90-5.60 [facility] Comment on above: Performed By: #### C BC, PT, PTT, CMP, BNP, HS TROP ####[address] WBC (Bld) [#/Vol] 6.5 10*3/uL Normal 4.5-11.0 [facility] Comment on above: Performed By: #### C BC, PT, PTT, CMP, BNP, HS TROP ####[address] Comprehensive Metabolic Pane rey 03-11-2022 Albumin [Mass/Vol] 3.7 g/dL Normal 3.2-5.5 [facility] Comment on above: Performed By: #### C BC, PT, PTT, CMP, BNP, HS TROP ####[place] [id number] [facility] Albumin/Globulin [Mass ratio] 1.0 {ratio} Normal [facility] Comment on above: Performed By: #### C BC, PT, PTT, CMP, BNP, HS TROP ####[place] [phone] [facility] ALP [Catalytic activity/Vol] 46 U/L Normal 32-92 [facility] Comment on above: Performed By: #### C BC, PT, PTT, CMP, BNP, HS TROP ####[address] [address] [facility] ALT [Catalytic activity/Vol] 21 U/L Normal 10-60 [facility] Comment on above: Performed By: #### C BC, PT, PTT, CMP, BNP, HS TROP ####[place] [phone] [facility] AST [Catalytic activity/Vol] 21 U/L Normal 10-42 [facility] Comment on above: Performed By: #### C BC, PT, PTT, CMP, BNP, HS TROP ####[place] [id number] [facility] Bilirubin [Mass/Vol] 0.5 mg/dL Normal 0.3-1.2 [facility] Comment on above: Performed By: #### C BC, PT, PTT, CMP, BNP, HS TROP ####[place] [id number] [facility] Calcium [Mass/Vol] 9.2 mg/dL Normal 8.2-10.2 [facility] Comment on above: Performed By: #### C BC, PT, PTT, CMP, BNP, HS TROP ####[place] [phone] [place] Chloride [Moles/Vol] 101 mmol/L Normal 95-114 [facility] Comment on above: Performed By: #### C BC, PT, PTT, CMP, BNP, HS TROP ####[place] [phone] [place] CO2 [Moles/Vol] 25.6 mmol/L Normal 22.0-30.0 [facility] Comment on above: Performed By: #### C BC, PT, PTT, CMP, BNP, HS TROP ####[address] Creatinine [Mass/Vol] 0.80 mg/dL Normal 0.64-1.27 [facility] Comment on above: Performed By: #### C BC, PT, PTT, CMP, BNP, HS TROP ####[address] Creatinine Clr Calc Pharmacy 95.36 [facility] Comment on above: Result Comment: PERF ORMED BY: [facility] [address] [place] [address] PATHOLOGIST WATER ANALYST LUIS FELIPE STARK M.D. Performed By: #### C BC, PT, PTT, CMP, BNP, HS TROP ####[address] Estimated GFR ( Naz > 60 [facility] Comment on above: Result Comment: GFR estimated reference range: According to KDOQI guidelines, <60 ml/min/1.73m2 is sufficient to diagnose a patient with chronic kidney disease. Performed By: #### C BC, PT, PTT, CMP, BNP, HS TROP ####[address] Estimated GFR (Non- Am > 60 [facility] Comment on above: Performed By: #### C BC, PT, PTT, CMP, BNP, HS TROP ####[address] Globulin (S) [Mass/Vol] 3.8 g/dL [facility] Comment on above: Performed By: #### C BC, PT, PTT, CMP, BNP, HS TROP ####[place] [id number] [facility] Glucose [Mass/Vol] 95 mg/dL Normal 70-100 [facility] Comment on above: Result Comment: [place] Glucose Reference Range is dependent on time and content of last meal. Glucose of more than 200 mg/dL in a nonstressed, ambulatory subject supports the diagnosis of Diabetes Mellitus. ADA recommended reference range Performed By: #### C BC, PT, PTT, CMP, BNP, HS TROP ####[facility] [address] Potassium [Moles/Vol] 4.1 mmol/L Normal 3.5-5.1 [facility] Comment on above: Performed By: #### C BC, PT, PTT, CMP, BNP, HS TROP ####[facility] [address] Protein [Mass/Vol] 7.5 g/dL Normal 6.1-7.9 [facility] Comment on above: Performed By: #### C BC, PT, PTT, CMP, BNP, HS TROP ####[address] Sodium [Moles/Vol] 137 mmol/L Normal 136-146 [facility] Comment on above: Performed By: #### C BC, PT, PTT, CMP, BNP, HS TROP ####[facility] [address] Urea nitrogen [Mass/Vol] 14 mg/dL Normal 9-23 [facility] Comment on above: Performed By: #### C BC, PT, PTT, CMP, BNP, HS TROP ####[facility] [place] [address] [place] Dipstick and Microscopicon 0 03-11-2022 Appearance (U) Cloudy Critically abnormal Clear [facility] Comment on above: Order Comment: Name Collection Type:: Clean-Voided Midstream Performed By: #### A DDONUAPLUS #### [facility] [address] [place] [address] [place] Bacteria,Urine None Seen Normal None Seen [facility] Comment on above: Order Comment: Name Collection Type:: Clean-Voided Midstream Performed By: #### A DDONUAPLUS #### [facility] [address] [place] [address] [place] Bilirubin,Urine Negative Normal Negative [facility] Comment on above: Order Comment: Name Collection Type:: Clean-Voided Midstream Performed By: #### A DDONUAPLUS #### [address] Color (U) Yellow Normal Yellow [facility] Comment on above: Order Comment: Name Collection Type:: Clean-Voided Midstream Performed By: #### A DDONUAPLUS #### [address] Glucose Ql (U) Normal Normal Normal [facility] Comment on above: Order Comment: Name Collection Type:: Clean-Voided Midstream Performed By: #### A DDONUAPLUS #### [address] Hyaline Casts,Urine None Seen Normal 0-8 [facility] Comment on above: Order Comment: Name Collection Type:: Clean-Voided Midstream Result Comment: PERF ORMED BY: [place] [address] PATHOLOGIST WATER ANALYST LUIS FELIPE STARK M.D. Performed By: #### A DDONUAPLUS #### [address] Ketones Ql (U) Negative Normal Negative [facility] Comment on above: Order Comment: Name Collection Type:: Clean-Voided Midstream Performed By: #### A DDONUAPLUS #### [place] [address] [place] Leukocyte esterase Test strip Ql (U) Negative Normal Negative [facility] Comment on above: Order Comment: Name Collection Type:: Clean-Voided Midstream Performed By: #### A DDONUAPLUS #### [place] [address] [place] Nitrite,Urine Negative Normal Negative [facility] Comment on above: Order Comment: Name Collection Type:: Clean-Voided Midstream Performed By: #### A DDONUAPLUS #### [place] [address] [place] Occult Blood,Urine Negative Normal Negative [facility] Comment on above: Order Comment: Name Collection Type:: Clean-Voided Midstream Result Comment: PERF ORMED BY: [place] [address] PATHOLOGIST WATER ANALYST LUIS FELIPE STARK M.D. Performed By: #### A DDONUAPLUS #### [address] pH (U) 6.5 [pH] Normal 5.0-9.0 [facility] Comment on above: Order Comment: Name Collection Type:: Clean-Voided Midstream Performed By: #### A DDONUAPLUS #### [address] Protein,Urine Negative Normal Negative [facility] Comment on above: Order Comment: Name Collection Type:: Clean-Voided Midstream Performed By: #### A DDONUAPLUS #### [address] RBC LM.HPF (Urine sed) [#/Area] 0 /[HPF] Normal 0-4 [facility] Comment on above: Order Comment: Name Collection Type:: Clean-Voided Midstream Performed By: #### A DDONUAPLUS #### [address] Specificy [place],Urine 1.026 Normal 1.001-1.030 [facility] Comment on above: Order Comment: Name Collection Type:: Clean-Voided Midstream Performed By: #### A DDONUAPLUS #### [address] Squamous Epithelial Cell,Urine None Seen Normal 0-2 [facility] Comment on above: Order Comment: Name Collection Type:: Clean-Voided Midstream Performed By: #### A DDONUAPLUS #### [address] Urobilinogen,Urine Normal Normal Normal [facility] Comment on above: Order Comment: Name Collection Type:: Clean-Voided Midstream Performed By: #### A DDONUAPLUS #### [address] WBC LM.HPF (Urine sed) [#/Area] 0 /[HPF] Normal 0-4 [facility] Comment on above: Order Comment: Name Collection Type:: Clean-Voided Midstream Performed By: #### A DDONUAPLUS #### [address] ECG 12 lead ECGon 03-11-2022 ECG 12 lead ECG [facility] [place] [address] [place] [address] Electrocardiograph Report Signed Patient: Yordan Marroquin SR MR#: [id number] : 1945 Acct:[id number] Age/Sex: 76 / M ADM Date: 03/11/22 Loc: Room: [address] [place] [address] Type: DIS INOo Attending Dr: Kyler Wood [...] ECGs available Confirmed by Willy Topete DO ([id number]) on 03/11/2022 8:32:24 PM Referred By: Electronically Signed By:Willy Topete DO Transcribed By: MUS Signed By Willy Topete DO 2031 Normal [facility] Free T4 (Free Thyroxine)on 0 03-11-2022 Free T4 [Mass/Vol] 0.66 ng/dL Normal 0.61-1.12 [facility] Comment on above: Performed By: #### B 12, T4F, TSH3, A1C WTH eA #### [place] [id number] [facility] Glucose Poct Glucometerson 0 03-11-2022 Glucose [Mass/Vol] 90 mg/dL Normal [facility] Comment on above: Result Comment: [facility] Glucose Reference Range is dependent on time and content of last meal. Glucose of more than 200 mg/dL in a nonstressed, ambulatory subject supports the diagnosis of Diabetes Mellitus. PERFORMED BY: [facility] [address] [place] [id number] PATHOLOGIST WATER ANALYST LUIS FELIPE STARK M.D. Performed By: #### G LULS ####Point of Care testing, ISTAT XRay CREon 03-11-2022 Creatinine [Mass/Vol] 0.8 mg/dL Normal 0.6-1.3 [facility] Comment on above: Result Comment: ER/E SD physician is notified/shown all ISTAT results. Critical values may be confirmed by laboratory testing if deemed necessary by ER attending doctor. Performed By: #### I SCRE ####[place] [id number] [facility] testing, ISTAT GFR ( > 60 Normal [facility] Comment on above: Result Comment: GFR estimated reference range: According to KDOQI guidelines, <60 ml/min/1.73m2 is sufficient to diagnose a patient with chronic kidney disease. PERFORMED BY: [facility] [address] [place] [phone] PATHOLOGIST WATER ANALYST LUIS FELIPE STARK M.D. Performed By: #### I SCRE ####[place] [phone] [facility] testing, ISTAT GFR (Non- Am > 60 Normal [facility] Comment on above: Performed By: #### I SCRE ####[place] [id number] [facility]APoint of Care testing, Partial Thromboplastin Timeo n 03-11-2022 aPTT Coag (Bld) [Time] 30.0 s Normal 25.1-36.5 [facility] Comment on above: Result Comment: PERF ORMED BY: [facility] [address] [place] [phone] PATHOLOGIST WATER ANALYST LUIS FELIPE STARK M.D. Performed By: #### C BC, PT, PTT, CMP, BNP, HS TROP ####[place] [id number] [place] [id number] [facility] Prothrombin Time INRon 03-11 INR Coag (PPP) [Relative time] 1.0 {INR} Normal [facility] Comment on above: Result Comment: INR [...] BC, PT, PTT, CMP, BNP, HS TROP ####[place] [id number] [address] PT Coag (PPP) [Time] 11.0 s Normal 9.0-12.9 [facility] Comment on above: Performed By: #### C BC, PT, PTT, CMP, BNP, HS TROP ####[place] [id number] [facility] Sheba Ag Negativeon 03-11-20 22 Sheba Ag Negative Negative Normal Negative [facility] Comment on above: Result Comment: This is a duplicate [place]ba SARS Antigen (JENIFER) result to be used for statistical tracking purpose only. PERFORMED BY: [address] [place] [id number] PATHOLOGIST WATER ANALYST LUIS FELIPE STARK M.D. Performed By: #### C OVID-19 SHEBA, SOFIANEG, COVID 19 [facility] #### [place] [id number] [facility] Thyroid Stimulating Hormoneo n 03-11-2022 TSH Qn 2.65 m[IU]/L Normal 0.45-5.33 [facility] Comment on above: Result Comment: PERF ORMED BY: [place] [address] PATHOLOGIST WATER ANALYST LUIS FELIPE STARK M.D. Performed By: #### B 12, T4F, TSH3, A1C [facility] eA #### [facility] [address] [place] [id number] [place] Troponin I High Sensitivityo n 03-11-2022 Troponin I High Sensitivity 3 pg/mL Normal 0-20 [facility] Comment on above: Result Comment: PERF ORMED BY: [place] [address] PATHOLOGIST WATER ANALYST LUIS FELIPE STARK M.D. Performed By: #### C BC, PT, PTT, CMP, BNP, HS TROP ####[facility] [id number] [id number] [facility] Vitamin B12on 03-11-2022 Cobalamin (Vitamin B12) [Mass/Vol] 468 pg/mL Normal 180-914 [facility] Comment on above: Performed By: #### B 12, T4F, TSH3, A1C [facility] eA #### [facility] [address] [place], [place] [id number] [facility] COVID Quick Testingon 2020 Result Negative [facility] Other PROGRESSon 06-14-2020 PROGRESS HNO ID: [id number] Author: Interface Note Service: ? Author Type: ? Type: Progress Notes Filed: 06/14/2020 11:07 AM Note Text: The surgical encounter documentation contains information performed by a different Karen Cedeño than is indicated by the provider record. Clinical care was provided and documented by the correct provider. [facility] CNOVon 07-02-2019 CNOV Office Visit (NRESFV) ---- YORDAN MARROQUIN ([id number]) 1945 M Date Time Provider Department 07/02/19 1:30 PM MAREK RAND NRESFV During your visit today, we recorded the following information about you: Temperature Pulse Respiration Blood pressure 97.3 degrees 66/minute 18/minute 134/60 Weight Height 96.9 kg 1.88 m Marek Rand DO 07/02/2019 2:05 PM Signed [facility] Neurotoxin Visit ? Date: July [...] INFORMED CONSENT ? Yordan Marroquin Medical Record: [id number] ? Procedure: bilateral cervical muscle injections with [...] 1:43 PM ? ? Dept of NEUROLOGICAL BAPTISM ? UNIVERSAL PROTOCOL / SAFETY CHECKLIST ? ? Sign in Communication: Completed ? Time Out: Team Confirms the Correct Patient, Correct Procedure, Correct Site and Site Marking, Correct Position (if applicable), Prep and Dry Time (if applicable). Time: 1343 ? Affirmation of Time Out: YES ? Sign Out Discussion: Completed ? Marek Rand DO ? ? 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 ? Left Right Sternocleidomastoid ? ? Splenius capitus 30 30 Scalene ? ? Levator Scapulae ? ? Trapezius ? ? Semispinalis 30 30 Occipitalis 30 30 ? Lot#: [id number] Exp Date 10/2021 ? ? ? Future plan of care: Follow up: 3 months Neurotoxin Change: No Dose Change: No Initial injections previously - no ineffective with no ADRs. Will increase dose Referring Provider: MAREK RAND [[id number]] Allergies As of Date: 07/02/2019 Noted Allergy [...] * FLUTICASONE PROPIONATE 50 MCG* Use 1 [place] in each nostril o* DOCUSATE SODIUM 100 [...] Status:Closed by MAREK RAND DO on 07/02/19 [facility] PROGRESSon 07-02-2019 PROGRESS HNO ID: [id number] Author: Marek Rand Service: ? Author Type: Physician Type: Progress Notes Filed: 07/02/2019 2:05 PM Note Text: [facility] Neurotoxin Visit ? Date: July [...] INFORMED CONSENT ? Yordan Marroquin Medical Record: [id number] ? Procedure: bilateral cervical muscle injections with [...] 1:43 PM ? ? Dept of NEUROLOGICAL BAPTISM ? UNIVERSAL PROTOCOL / SAFETY CHECKLIST ? [...] guidance: Yes Injection Site: Cervical dystonia: CPT 60104 ? ? Left Right Sternocleidomastoid ? ? Splenius capitus 30 30 Scalene ? ? Levator Scapulae ? ? Trapezius ? ? Semispinalis 30 30 Occipitalis 30 30 ? Lot#: [id number] Exp Date 10/2021 ? ? ? Future plan of care: Follow up: 3 months Neurotoxin Change: No Dose Change: No Initial injections previously - no ineffective with no ADRs. Will increase dose Normal [facility] Vital Signs Date Time Vital Sign Value Performing Clinician Facility 10-06-2024 08:47-0500 Body height 188 cm Rasheed Lucas MD Work Phone: [facility] 10-06-2024 08:47-0500 Body mass index (BMI) [Ratio] 28.5 kg/m2 Rasheed Lucas MD Work Phone: [facility] 10-06-2024 08:47-0500 Body weight 100.7 kg Rasheed Lucas MD Work Phone: [facility] 10-06-2024 08:47-0500 Diastolic blood pressure 82 mm[Hg] Rasheed Lucas MD Work Phone: [facility] 10-06-2024 08:47-0500 Heart rate 78 /min Rasheed Lucas MD Work Phone: [facility] 10-06-2024 08:47-0500 SaO2% (BldA) [Mass fraction] 96 % Rasheed Lucsa MD Work Phone: [facility] 10-06-2024 08:47-0500 Systolic blood pressure 108 mm[Hg] Rasheed Lucas MD Work Phone: [facility] 08-18-2024 12:56-0400 Body height 188 cm Mila Andino APRN.GIS DATABASE ADMINISTRATOR Work Phone: [facility] 08-18-2024 12:56-0400 Body mass index (BMI) [Ratio] 28.22 kg/m2 Mila Andino APRN.GIS DATABASE ADMINISTRATOR Work Phone: [facility] 08-18-2024 12:56-0400 Body weight 99.7 kg Mila Andino APRN.GIS DATABASE ADMINISTRATOR Work Phone: [facility] 08-18-2024 12:56-0400 Diastolic blood pressure 76 mm[Hg] Mila Andino 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 Phone: [facility] 08-18-2024 12:56-0400 Heart rate 71 /min Mila Andino APRN.GIS DATABASE ADMINISTRATOR Work Phone: [facility] 08-18-2024 12:56-0400 SaO2% (BldA) [Mass fraction] 94 % Mila Andino APRN.GIS DATABASE ADMINISTRATOR Work Phone: [facility] 08-18-2024 12:56-0400 Systolic blood pressure 129 mm[Hg] Mila Andino 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 Phone: [facility] 08-09-2024 10:16-0400 Body height 187.96 cm [facility] 08-09-2024 10:16-0400 Body mass index (BMI) [Ratio] 27.8 kg/m2 [facility] 08-09-2024 10:16-0400 Body temperature 98.4 [degF] [facility] 08-09-2024 10:16-0400 Body weight 98.42 kg [facility] 08-09-2024 10:16-0400 Diastolic blood pressure 68 mm[Hg] [facility] 08-09-2024 10:16-0400 Heart rate 72 /min [facility] 08-09-2024 10:16-0400 Respiratory rate 18 /min [facility] 08-09-2024 10:16-0400 SaO2% (BldA) [Mass fraction] 96 % [facility] 08-09-2024 10:16-0400 Systolic blood pressure 133 mm[Hg] [facility] 08-07-2024 08:58-0400 Body height 188 cm Nish Cruz DPM Work Phone: [facility] 08-07-2024 08:58-0400 Body mass index (BMI) [Ratio] 27.09 kg/m2 Nish rCuz DPM Work Phone: [facility] 08-07-2024 08:58-0400 Body weight 95.71 kg Nish Cruz DPM Work Phone: [facility] 08-07-2024 08:58-0400 Diastolic blood pressure 70 mm[Hg] Nish Cruz DPM Work Phone: [facility] 08-07-2024 08:58-0400 Heart rate 75 /min Nish Cruz DPM Work Phone: [facility] 08-07-2024 08:58-0400 Respiratory rate 17 /min Nish Cruz DPM Work Phone: [facility] 08-07-2024 08:58-0400 Systolic blood pressure 120 mm[Hg] Nish Cruz DPM Work Phone: [facility] 04-22-2024 14:20-0400 Body height 188 cm Mila Andino 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 Phone: [facility] 04-22-2024 14:20-0400 Body mass index (BMI) [Ratio] 27.6 kg/m2 Mila Andino 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 Phone: [facility] 04-22-2024 14:20-0400 Body weight 97.5 kg Mila Andino 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 Phone: [facility] 04-22-2024 14:20-0400 Diastolic blood pressure 57 mm[Hg] Mila Andino 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 Phone: [facility] 04-22-2024 14:20-0400 Heart rate 60 /min Mila Andino 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 Phone: [facility] 04-22-2024 14:20-0400 SaO2% (BldA) [Mass fraction] 97 % Mila Andino APRN.GIS DATABASE ADMINISTRATOR Work Phone: [facility] 04-22-2024 14:20-0400 Systolic blood pressure 116 mm[Hg] Mila Andino 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 Phone: [facility] 03-04-2024 13:22-0400 Body height 188 cm Mila Andino APRN.GIS DATABASE ADMINISTRATOR Work Phone: [facility] 03-04-2024 13:22-0400 Body mass index (BMI) [Ratio] 27.82 kg/m2 Mila Andino APRN.GIS DATABASE ADMINISTRATOR Work Phone: [facility] 03-04-2024 13:22-0400 Body weight 98.3 kg Mila Andino APRN.GIS DATABASE ADMINISTRATOR Work Phone: [facility] 03-04-2024 13:22-0400 Diastolic blood pressure 65 mm[Hg] Mila Andino 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 Phone: [facility] 03-04-2024 13:22-0400 Heart rate 62 /min Mila Andino APRN.GIS DATABASE ADMINISTRATOR Work Phone: [facility] 03-04-2024 13:22-0400 SaO2% (BldA) [Mass fraction] 97 % Mila Andino APRN.GIS DATABASE ADMINISTRATOR Work Phone: [facility] 03-04-2024 13:22-0400 Systolic blood pressure 113 mm[Hg] Mila Andino 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 Phone: [facility] 09-04-2023 10:30-0400 Body height 188 cm Mila Andino APRN.GIS DATABASE ADMINISTRATOR Work Phone: [facility] 09-04-2023 10:30-0400 Body weight 95.07 kg Mila Andino APRN.GIS DATABASE ADMINISTRATOR Work Phone: [facility] 09-04-2023 10:30-0400 Diastolic blood pressure 69 mm[Hg] Mila Andino APRN.GIS DATABASE ADMINISTRATOR Work Phone: [facility] 09-04-2023 10:30-0400 Heart rate 63 /min Mila Andino APRN.GIS DATABASE ADMINISTRATOR Work Phone: [facility] 09-04-2023 10:30-0400 SaO2% (BldA) [Mass fraction] 95 % Mila Andino APRN.GIS DATABASE ADMINISTRATOR Work Phone: [facility] 09-04-2023 10:30-0400 Systolic blood pressure 129 mm[Hg] Mila Andino APRN.GIS DATABASE ADMINISTRATOR Work Phone: [facility] 04-01-2023 11:50-0400 Body height 184.15 cm Krystina Shell Other [facility] Other 04-01-2023 11:50-0400 Body mass index (BMI) [Ratio] 26.76 kg/m2 Krystina Shell Other [facility] Other 04-01-2023 11:50-0400 Body temperature 97.5 [degF] Krystina Shell Other [facility] Other 04-01-2023 11:50-0400 Body weight 90.77 kg Krystina Shell Other [facility] Other 04-01-2023 11:50-0400 Diastolic blood pressure 92 mm[Hg] Krystina Shell Other [facility] Other 04-01-2023 11:50-0400 Respiratory rate 18 /min Krystina Shell Other [facility] Other 04-01-2023 11:50-0400 SaO2% (BldA) [Mass fraction] 94 % Krystina Shell Other [facility] Other 04-01-2023 11:50-0400 Systolic blood pressure 140 mm[Hg] Krystina Goff Other [facility] Other 02-08-2023 12:36-0400 Body height 188 cm Mila Andino 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 Phone: [facility] 02-08-2023 12:36-0400 Body weight 94.39 kg Mila Andino 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 Phone: [facility] 02-08-2023 12:36-0400 Diastolic blood pressure 65 mm[Hg] Mila Andino 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 Phone: [facility] 02-08-2023 12:36-0400 Heart rate 72 /min Mila Andino 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 Phone: [facility] 02-08-2023 12:36-0400 SaO2% (BldA) [Mass fraction] 97 % Mila Andino 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 Phone: [facility] 02-08-2023 12:36-0400 Systolic blood pressure 106 mm[Hg] Mila Andino 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 Phone: [facility] 11-09-2022 12:13-0500 Body height 188 cm Mila Andino 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 Phone: [facility] 11-09-2022 12:13-0500 Body weight 94.39 kg Mila Andino 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 Phone: [facility] 11-09-2022 12:13-0500 Diastolic blood pressure 76 mm[Hg] Mila Andino 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 Phone: [facility] 11-09-2022 12:13-0500 Heart rate 72 /min Mila Andino 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 Phone: [facility] 11-09-2022 12:13-0500 SaO2% (BldA) [Mass fraction] 97 % Mila Andino 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 Phone: [facility] 11-09-2022 12:13-0500 Systolic blood pressure 115 mm[Hg] Mila Andino APRN.GIS DATABASE ADMINISTRATOR Work Phone: [facility] 10-17-2022 10:20-0500 Body height 184.15 cm Tyler Ulrich Other [facility] Other 10-17-2022 10:20-0500 Body mass index (BMI) [Ratio] 28.89 kg/m2 Tyler Ulrich Other [facility] Other 10-17-2022 10:20-0500 Body temperature 98.5 [degF] Tyler Ulrich Other [facility] Other 10-17-2022 10:20-0500 Body weight 97.98 kg Tyler Ulrich Other [facility] Other 10-17-2022 10:20-0500 Diastolic blood pressure 77 mm[Hg] Tyler Ulrich Other [facility] Other 10-17-2022 10:20-0500 Respiratory rate 18 /min Tyler Ulrich Other [facility] Other 10-17-2022 10:20-0500 SaO2% (BldA) [Mass fraction] 96 % Tyler Ulrich Other [facility] Other 10-17-2022 10:20-0500 Systolic blood pressure 120 mm[Hg] Tyler Ulrich Other [facility] Other 08-10-2022 10:39-0400 Body weight 95.25 kg Stacy Jones MD Work Phone: [facility] 08-10-2022 10:39-0400 Diastolic blood pressure 82 mm[Hg] Stacy Jones MD Work Phone: [facility] 08-10-2022 10:39-0400 Heart rate 69 /min Stacy Jones MD Work Phone: [facility] 08-10-2022 10:39-0400 SaO2% (BldA) [Mass fraction] 98 % Stacy Jones MD Work Phone: [facility] 08-10-2022 10:39-0400 Systolic blood pressure 120 mm[Hg] Stacy Jones MD Work Phone: [facility] 05-02-2022 11:45-0400 Body height 188 cm Mila Andino APRN.GIS DATABASE ADMINISTRATOR Work Phone: [facility] 05-02-2022 11:45-0400 Body weight 94.26 kg Mila Andino 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 Phone: [facility] 05-02-2022 11:45-0400 Diastolic blood pressure 75 mm[Hg] Mila Andino 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 Phone: [facility] 05-02-2022 11:45-0400 Heart rate 63 /min Mila Andino APRN.GIS DATABASE ADMINISTRATOR Work Phone: [facility] 05-02-2022 11:45-0400 SaO2% (BldA) [Mass fraction] 99 % Mila Andino 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 Phone: [facility] 05-02-2022 11:45-0400 Systolic blood pressure 129 mm[Hg] Mila Andino 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 Phone: [facility] 05-02-2022 11:07-0400 Body height 188 cm Stacy Jones MD Work Phone: [facility] 05-02-2022 11:07-0400 Body weight 94.12 kg Stacy Jones MD Work Phone: [facility] 05-02-2022 11:07-0400 Diastolic blood pressure 75 mm[Hg] Stacy Jones MD Work Phone: [facility] 05-02-2022 11:07-0400 Heart rate 63 /min Stacy Jones MD Work Phone: [facility] 05-02-2022 11:07-0400 SaO2% (BldA) [Mass fraction] 99 % Stacy Jones MD Work Phone: [facility] 05-02-2022 11:07-0400 Systolic blood pressure 129 mm[Hg] Stacy Jones MD Work Phone: [facility] 01-16-2022 10:15-0400 Body height 184.15 cm Ny Schwerer Other [facility] Other 01-16-2022 10:15-0400 Body mass index (BMI) [Ratio] 28.89 kg/m2 Ny Schwerer Other [facility] Other 01-16-2022 10:15-0400 Body temperature 97.7 [degF] Ny Schwerer Other [facility] Other 01-16-2022 10:15-0400 Body weight 97.98 kg Ny Schwerer Other [facility] Other 01-16-2022 10:15-0400 Diastolic blood pressure 78 mm[Hg] Ny Schwerer Other [facility] Other 01-16-2022 10:15-0400 SaO2% (BldA) [Mass fraction] 96 % Ny Schwerer Other [facility] Other 01-16-2022 10:15-0400 Systolic blood pressure 122 mm[Hg] Ny Schwerer Other [facility] Other 10-18-2021 11:45-0500 Body height 184.15 cm Ny Schwerer Other [facility] Other 10-18-2021 11:45-0500 Body mass index (BMI) [Ratio] 28.61 kg/m2 Ny Schwerer Other [facility] Other 10-18-2021 11:45-0500 Body temperature 98.4 [degF] Ny Schwerer Other [facility] Other 10-18-2021 11:45-0500 Body weight 97.03 kg Ny Schwerer Other [facility] Other 10-18-2021 11:45-0500 Diastolic blood pressure 72 mm[Hg] Ny Schwerer Other [facility] Other 10-18-2021 11:45-0500 SaO2% (BldA) [Mass fraction] 95 % Ny Schwerer Other [facility] Other 10-18-2021 11:45-0500 Systolic blood pressure 126 mm[Hg] Ny Schwerer Other [facility] Other 09-11-2021 12:30-0500 Body height 184.15 cm Young Dean Other [facility] Other 09-11-2021 12:30-0500 Body mass index (BMI) [Ratio] 28.09 kg/m2 Young Dean Other [facility] Other 09-11-2021 12:30-0500 Body temperature 97.6 [degF] Young Dean Other [facility] Other 09-11-2021 12:30-0500 Body weight 95.26 kg Young Dean Other [facility] Other 09-11-2021 12:30-0500 Diastolic blood pressure 91 mm[Hg] Young Dean Other [facility] Other 09-11-2021 12:30-0500 SaO2% (BldA) [Mass fraction] 97 % Young Dean Other [facility] Other 09-11-2021 12:30-0500 Systolic blood pressure 132 mm[Hg] Young Dean Other [facility] Other Encounters Encounter Date Encounter Type Care Provider Facility Start: 10-07-2024 End: 10-07-2024 Telephone encounter Irwin Gio [employer] [facility] Comment on above: Cx out PT Start: 10-06-2024 End: 10-06-2024 Office outpatient visit 25 minutes Rasheed Lucas MD Work Phone: [facility] Comment on above: Essential tremor (Pr imary Dx) Start: 10-06-2024 End: 10-06-2024 ambulatory Svetlana Carrera PT [facility] Comment on above: Essential tremor (Pr imary Dx); Abnormality of gait; Poor balance Start: 10-01-2024 End: 10-01-2024 Bamboo flowsheet Irwin Douglass [employer] [facility] Start: 10-01-2024 End: 10-01-2024 Bamboo flowsheet Irwin Douglass [employer] Start: 10-01-2024 End: 10-01-2024 ambulatory Irwin Douglass [facility] Comment on above: Essential tremor (Pr imary Dx); Abnormality of gait; Poor balance Start: 09-29-2024 End: 09-29-2024 Bamboo flowsheet Irwin Douglass [facility] Start: 09-29-2024 End: 09-29-2024 Bamboo flowsheet Irwin Douglass [facility] Start: 09-29-2024 End: 09-29-2024 ambulatory Irwin Douglass [facility] Comment on above: Essential tremor (Pr imary Dx); Abnormality of gait; Poor balance Start: 09-24-2024 End: 09-24-2024 Bamboo flowsheet Lupis Spain [facility] Start: 09-24-2024 End: 09-24-2024 Bamboo flowsheet Lupis Spain [facility] Start: 09-24-2024 End: 09-24-2024 ambulatory Lupis Spain [facility] Comment on above: Essential tremor (Pr imary Dx); Abnormality of gait; Poor balance Start: 09-23-2024 End: 09-24-2024 Telephone encounter Mila Andino APRN.GIS DATABASE ADMINISTRATOR Work Phone: [facility] Comment on above: Question Start: 09-22-2024 End: 09-22-2024 Bamboo flowsheet Svetlana Carrera PT [facility] Start: 09-22-2024 End: 09-22-2024 Bamboo flowsheet Svetlana Carrera PT [facility] Start: 09-22-2024 End: 09-22-2024 ambulatory Svetlana Carrera PT [facility] Comment on above: Essential tremor (Pr imary Dx); Abnormality of gait Start: 09-17-2024 End: 09-17-2024 Bamboo flowsheet Irwin Douglass [facility] Start: 09-17-2024 End: 09-17-2024 Bamboo flowsheet Irwin Douglass [facility] Start: 09-17-2024 End: 09-17-2024 ambulatory Irwin Douglass [facility] Comment on above: Essential tremor (Pr imary Dx); Abnormality of gait; Poor balance Start: 09-15-2024 End: 09-15-2024 Bamboo flowsheet Irwin Douglass [facility] Start: 09-15-2024 End: 09-15-2024 Bamboo flowsheet Irwin Douglass [facility] Start: 09-15-2024 End: 09-15-2024 ambulatory Irwin Douglass [facility] Comment on above: Essential tremor (Pr imary Dx); Abnormality of gait; Poor balance Start: 09-10-2024 End: 09-10-2024 Bamboo flowsheet Irwin Douglass [facility] Start: 09-10-2024 End: 09-10-2024 Bamboo flowsheet Irwin Douglass [facility] [facility] Start: 09-10-2024 End: 09-10-2024 ambulatory Irwin Douglass [facility] [facility] Comment on above: Essential tremor (Pr imary Dx); Abnormality of gait; Poor balance Start: 09-08-2024 End: 09-08-2024 Bamboo flowsheet Svetlana Carrera PT [facility] Start: 09-08-2024 End: 09-08-2024 Bamboo flowsheet Svetlana Carrera PT [facility] Start: 09-08-2024 End: 09-08-2024 ambulatory Svetlana Carrera PT [facility] Comment on above: Essential tremor (Pr imary Dx); Abnormality of gait; Poor balance Start: 09-03-2024 End: 09-03-2024 Bamboo flowsheet Svetlana Carrera PT [facility] Start: 09-03-2024 End: 09-03-2024 Bamboo flowsheet Svetlana Carrera PT [facility] Start: 09-03-2024 End: 09-03-2024 Telephone encounter Mila Andino APRN.GIS DATABASE ADMINISTRATOR Work Phone: [facility] Comment on above: Return Call Requeste d ([facility] PT regarding DBS) Start: 09-03-2024 End: 09-03-2024 ambulatory Svetlana Carrera PT [facility] Comment on above: Essential tremor (Pr imary Dx); Abnormality of gait; Poor balance Start: 09-01-2024 End: 09-01-2024 Bamboo flowsheet Svetlana Carrera PT [facility] Start: 09-01-2024 End: 09-01-2024 Bamboo flowsheet Svetlana Carrera PT [facility] Start: 09-01-2024 End: 09-01-2024 ambulatory Svetlana Carrera PT [facility] Comment on above: Essential tremor (Pr imary Dx); Abnormality of gait Start: 08-18-2024 End: 08-18-2024 ambulatory MILA ANDINO Facility:[facility] Start: 08-18-2024 End: 08-18-2024 Patient encounter procedure Mila Andino 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 Phone: Neurology Comment on above: Essential tremor (Pr imary Dx); Anxiety; S/P deep brain stimulator placement; Gait disorder Start: 08-13-2024 End: 08-14-2024 Refill Jun Carrasco MD Work Phone: [facility] Comment on above: Gastroesophageal ref lux disease, unspecified whether esophagitis present Start: 08-09-2024 End: 08-09-2024 ambulatory [facility] Work Phone: Start: 08-09-2024 End: 08-09-2024 Patient encounter procedure [facility] Work Phone: Start: 08-07-2024 End: 08-07-2024 Bamboo flowsheet Nish Cruz DPM Work Phone: [facility] Start: 08-07-2024 End: 08-07-2024 Bamboo flowsheet Nish Cruz DPM Work Phone: [facility] Start: 08-07-2024 End: 08-07-2024 ambulatory NISH CRUZ Not Available Start: 08-07-2024 End: 08-07-2024 Patient encounter procedure Nish Cruz DPM Work Phone: [facility] Comment on above: Rheumatoid arthritis of other site, unspecified whether rheumatoid factor present ([facility]) (Primary Dx); Pain due to onychomycosis of toenails of both feet Start: 06-17-2024 End: 06-17-2024 ambulatory RASHEED LUCAS Not Available Start: 06-08-2024 Non-patient / Non-visit [facility] Work Phone: Start: 06-05-2024 End: 06-05-2024 ambulatory IRWIN DOUGLASS Not Available Start: 06-02-2024 End: 06-02-2024 ambulatory ROSHAN HERNANDEZ Not Available Start: 05-29-2024 End: 05-29-2024 ambulatory IRWIN DOUGLASS Not Available Start: 05-27-2024 End: 05-27-2024 ambulatory IRWIN DOUGLASS Not Available Start: 05-22-2024 End: 05-22-2024 ambulatory LUPIS SPAIN Not Available Start: 05-14-2024 End: 05-14-2024 ambulatory CHRISTINA HALE Not Available Start: 05-09-2024 End: 05-09-2024 ambulatory IRWIN DOUGLASS Not Available Start: 05-06-2024 End: 05-06-2024 ambulatory LUPIS SPAIN Not Available Start: 05-05-2024 Patient encounter procedure Nish Cruz [facility] Work Phone: [facility] Start: 05-05-2024 End: 05-05-2024 ambulatory RASHEED LUCAS Not Available Start: 04-30-2024 End: 04-30-2024 ambulatory LAWSON YOUSIF Not Available Start: 04-22-2024 End: 04-22-2024 ambulatory MILA ANDINO Facility:[facility] Start: 04-22-2024 End: 04-22-2024 Patient encounter procedure Mila Andino APRN.CNP Work Phone: Neurology Comment on above: Essential tremor (Pr imary Dx); S/P deep brain stimulator placement Start: 04-22-2024 End: 08-05-2024 Telephone encounter Mila Andino APRN.CNP Work Phone: Neurology Comment on above: Appointment Start: 04-09-2024 Telephone encounter Mila mejia APRN.CNP Work Phone: Neurology Comment on above: Appointment Start: 03-05-2024 Telephone encounter Mila mejia APRN.CNP Work Phone: Neurological [facility] Comment on above: Results (Labs) Start: 03-04-2024 End: 03-04-2024 ambulatory [place] HOYOS Facility:[facility] Start: 03-04-2024 End: 03-04-2024 Patient encounter procedure Mila Andino APRN.CNP Work Phone: Neurology Comment on above: Essential tremor (Pr imary Dx); S/P deep brain stimulator placement; Anxiety; Abnormality of gait; Cognitive impairment; Vitamin D deficiency Start: 01-31-2024 End: 01-31-2024 ambulatory CHRISTINA HALE Not Available Start: 01-01-2024 End: 01-01-2024 ambulatory RASHEED LUCAS Not Available Start: 11-29-2023 End: 11-29-2023 ambulatory NISH CRUZ Not Available Start: 11-21-2023 Refill Jun Carrasco MD Work Phone: [facility] Comment on above: Arthritis; Vitamin D deficiency Start: 09-04-2023 End: 09-04-2023 Patient encounter procedure Mila Andino APRN.CNP Work Phone: Neurology Comment on above: Essential tremor (Pr imary Dx); Anxiety; S/P deep brain stimulator placement Start: 04-11-2023 Telephone encounter Mila mejia APRN.CNP Work Phone: Neurology Comment on above: Appointment Start: 04-05-2023 Telephone encounter Mila mejia APRN.CNP Work Phone: Neurological [facility] Comment on above: Symptom Management Start: 04-01-2023 End: 04-01-2023 ambulatory Krystina Goff Other [facility] Other Start: 04-01-2023 Office outpatient vi sit 15 minutes Krystina Goff [facility] [place] Start: 02-08-2023 End: 02-08-2023 Patient encounter procedure Mlia Andino APRN.CNP Work Phone: Neurology Comment on above: Essential tremor (Pr imary Dx); S/P deep brain stimulator placement; Anxiety Start: 11-09-2022 End: 01-05-2023 Patient encounter procedure Mila Andino APRN.GIS DATABASE ADMINISTRATOR Work Phone: Neurology Comment on above: Essential tremor (Pr imary Dx); S/P deep brain stimulator placement; Anxiety APPOINTMENT CANCELLE D (Primary Dx) Start: 10-17-2022 End: 10-17-2022 ambulatory Tyler Ulrich Other [facility] Other Start: 10-17-2022 Office outpatient vi sit 15 minutes Tyler Ulrich [facility] Urgent [facility] Start: 08-10-2022 End: 08-10-2022 Patient encounter procedure Stacy Jones MD Work Phone: Neurology Comment on above: Cervical dystonia (P rimary Dx) Start: 05-02-2022 End: 05-02-2022 Patient encounter procedure Stacy Jones MD Work Phone: Neurology Comment on above: Cervical dystonia (P rimary Dx) Anxiety (Primary Dx) ; Essential tremor; S/P deep brain stimulator placement Start: 04-20-2022 End: 04-21-2022 ambulatory Shayla Mirza Facility:[facility] Start: 03-22-2022 Telephone encounter Mila mejia APRN.GIS DATABASE ADMINISTRATOR Work Phone: Neurological [facility] Comment on above: Patient Request Start: 03-11-2022 End: 03-13-2022 ambulatory Kyler Wood Facility:[facility] Start: 02-15-2022 End: 02-15-2022 ambulatory Ny Schwerer Other [facility] Other Start: 02-15-2022 Telephone encounter Ny Schwerer [facility] Start: 02-09-2022 End: 02-09-2022 ambulatory Ny Schwerer Other [facility] Other Start: 02-09-2022 Telephone encounter Ny Schwerer [facility] Start: 01-16-2022 End: 01-16-2022 ambulatory Ny Schwerer Other [facility] Other Start: 01-16-2022 Office outpatient vi sit 10 minutes Ny Schwerer [facility] [place] Start: 12-19-2021 End: 12-19-2021 ambulatory Ny Schwerer Other [facility] Other Start: 12-19-2021 Telephone encounter Ny Schwerer [facility] [place] Start: 2021 End: 2021 ambulatory Ny Schwerer Other [facility] Other Start: 2021 Telephone encounter Ny Schwerer [facility] [place] Start: 10-18-2021 End: 10-18-2021 ambulatory Ny Schwerer Other [facility] Other Start: 10-18-2021 Office outpatient vi sit 25 minutes Ny Schwerer [facility] [place] Start: 09-11-2021 End: 09-11-2021 ambulatory Young Dean Other [facility] Other Start: 09-11-2021 Office outpatient vi sit 15 minutes Young Dean [facility] Urgent [facility] Start: 08-15-2018 End: 08-15-2018 Patient encounter RIGO MARTIN Facility:[facility] Start: 04-06-2017 End: 04-07-2017 Ambulatory LUAN Jorge [facility] Facility: Procedures Date Procedure Procedure Detail Performing Clinician Start: 07-19-2023 Adult depression screening assessment Jun Carrasco MD Work Phone: Start: 05-02-2022 Adult depression screening assessment Stacy Jones MD Work Phone: Start: 10-06-2021 Adult depression screening assessment Mila Andino APRN.GIS DATABASE ADMINISTRATOR Work Phone: Start: 02-29-2016 H/O: surgery S/P deep brain stimulator placement Mila Sina 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 Phone: H/O: surgery S/P deep brain stimulator placement Mila Andino 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 Phone: H/O: surgery S/P deep brain stimulator placement Mila Andino 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 Phone: H/O: surgery S/P deep brain stimulator placement Mila Andino 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 Phone: H/O: surgery S/P deep brain stimulator placement Mila Andino 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 Phone: H/O: surgery S/P deep brain stimulator placement Mila Andino 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 Phone: H/O: surgery S/P deep brain stimulator placement Mila Andino 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 Phone: H/O: surgery S/P deep brain stimulator placement Mila Andino 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 Phone: Plan of Treatment Date Care Activity Detail Author Start: 06-29-2026 [facility] Start: 05-05-2025 Medicare Annual Well ness (AWV) Medicare Annual Wellness (AWV) [facility] Start: 02-16-2025 End: 02-16-2025 Patient encounter procedure 02/16/2025 11:00 AM EDT Office Visit Neurology [address] [address] Mila Andino APRN.[employer] [address] [place] [address] dbs adjuestment Neurology Comment on above: dbs adjuestment Start: 11-21-2024 DIABETES SCREEN DIABETES SCREEN [facility] Start: 10-20-2024 End: 10-20-2024 Patient encounter procedure 10/20/2024 10:30 AM EST Office Visit [facility] [address] [address] Rasheed Lucas MD [address] [facility] [address] [place], [place] [id number] [facility] Start: 10-16-2024 End: 10-16-2024 Patient encounter procedure 10/16/2024 8:40 AM EST Procedure Visit [facility] [address] [place] [address] Nish Cruz, DPM [address] [facility] [address] [place] [address] [facility] Start: 10-08-2024 End: 10-08-2024 ambulatory 10/08/2024 1:00 PM EST Treatment [facility] [address] [place] [address] Irwin Douglass, CABINET INSTALLER [facility] Start: 10-06-2024 End: 10-06-2024 ambulatory 10/06/2024 10:00 AM EST Treatment [facility] [address] [place] [address] Svetlana Carrera, PT [facility] Start: 10-06-2024 End: 10-06-2024 Patient encounter procedure 10/06/2024 9:00 AM EST Office Visit [facility] [address] [place] [address] Rasheed Lucas MD [address] [place] [address] [facility] Start: 10-01-2024 End: 10-01-2024 ambulatory [facility] Comment on above: Arrived Start: 09-29-2024 End: 09-29-2024 ambulatory [facility] Comment on above: Arrived Start: 09-24-2024 End: 09-24-2024 ambulatory [facility] Comment on above: Arrived Start: 09-22-2024 End: 09-22-2024 ambulatory 09/22/2024 11:00 AM EST Treatment [facility] [address] [place] [address] Svetlana Carrera, PT [facility] Start: 09-17-2024 End: 09-17-2024 ambulatory 09/17/2024 12:30 PM EST Treatment [facility] [address] [place] [address] Irwin Douglass, CABINET INSTALLER [facility] Start: 09-17-2024 End: 09-17-2024 ambulatory 09/17/2024 10:30 AM EST Treatment [facility] [address] [facility] [place] [address] Irwin Douglass, CABINET INSTALLER [facility] Start: 09-15-2024 End: 09-15-2024 ambulatory 09/15/2024 12:30 PM EST Treatment [facility] [address] [facility] [address] [place] [address] Irwin Douglass, CABINET INSTALLER [facility] Start: 09-10-2024 End: 09-10-2024 ambulatory [facility] Comment on above: Arrived Start: 09-08-2024 End: 09-08-2024 ambulatory [facility] Comment on above: Arrived Start: 09-06-2024 Adult BMI Screening Adult BMI Screen ing [facility] Start: 09-06-2024 Tobacco Screening Tobacco Screening [facility] Start: 09-03-2024 End: 09-03-2024 ambulatory [facility] Comment on above: Arrived Start: 09-01-2024 End: 09-01-2024 ambulatory 09/01/2024 11:00 AM EDT Evaluation [facility] [address] [facility] [place] [address] Svetlana Carrera, PT Arrived [facility] Comment on above: Arrived Start: 08-18-2024 End: 08-18-2024 Patient encounter procedure [facility] Comment on above: DBS Adjustment Start: 07-19-2024 Depression Screening Depression Scre ening [facility] Start: 07-19-2024 Fall Risk Screening Fall Risk Screen ing [facility] Start: 07-19-2024 Medicare Annual Well ness Visit Medicare Annual Wellness Visit [facility] Start: 07-06-2024 COVID-19 Vaccine ( season) COVID-19 Vaccine () [facility] Start: 07-06-2024 Covid-19 Vaccine () Covid-19 Vaccine () [facility] Start: 07-06-2024 Influenza vaccination [facility] Start: 04-09-2024 End: 04-09-2024 Patient encounter procedure 04/09/2024 3:00 PM EDT Office Visit Neurology [address] [address] Mila Andino APRN.GIS DATABASE ADMINISTRATOR [address] [place] [address] DBS adjustment Neurology Comment on above: DBS adjustment Start: 03-04-2024 End: 06-03-2024 25-hydroxyvitamin D3 [Mass/volume] in Serum or Plasma VITAMIN D 25 HYDROXY Lab Routine Anxiety Cognitive impairment Vitamin D deficiency Expected: 03/04/2024, Expires: 06/03/2024 [facility] Comment on above: Expected: 03/04/2024 , Expires: 06/03/2024 Start: 03-04-2024 End: 06-03-2024 CBC W Auto Differential panel - Blood COMPLETE BLOOD COUNT AND DIFFERENTIAL Lab Routine Anxiety Abnormality of gait Cognitive impairment Expected: 03/04/2024, Expires: 06/03/2024 [facility] Comment on above: Expected: 03/04/2024 , Expires: 06/03/2024 Start: 03-04-2024 End: 06-03-2024 Comprehensive metabolic 2000 panel - Serum or Plasma COMPREHENSIVE METABOLIC PANEL Lab Routine Essential tremor Anxiety Abnormality of gait Cognitive impairment Expected: 03/04/2024, Expires: 06/03/2024 [facility] Comment on above: Expected: 03/04/2024 , Expires: 06/03/2024 Start: 03-04-2024 End: 06-03-2024 Folate [Mass/volume] in Serum or Plasma FOLATE, SERUM Lab Routine Anxiety Abnormality of gait Cognitive impairment Expected: 03/04/2024, Expires: 06/03/2024 [facility] Comment on above: Expected: 03/04/2024 , Expires: 06/03/2024 Start: 03-04-2024 End: 06-03-2024 Thyrotropin [Units/volume] in Serum or Plasma THYROID STIMULATING HORMONE Lab Routine Anxiety Cognitive impairment Expected: 03/04/2024, Expires: 06/03/2024 [facility] Comment on above: Expected: 03/04/2024 , Expires: 06/03/2024 Start: 03-04-2024 End: 06-03-2024 VITAMIN B12 W/REFLEX VITAMIN B12 W/REFLEX Lab Routine Anxiety Abnormality of gait Cognitive impairment Expected: 03/04/2024, Expires: 06/03/2024 [facility] Work Phone: Comment on above: Expected: 03/04/2024 , Expires: 06/03/2024 Start: 12-27-2023 Covid-19 Vaccine () Covid-19 Vaccine () [facility] Start: 11-05-2023 Advance Directive Discussion Advance Directive Discussion [facility] Start: 07-06-2023 Influenza vaccination [facility] Start: 05-02-2023 Adult depression screening assessment DEPRESSION SCREENING [facility] Start: 11-05-2022 ADVANCE DIRECTIVE DISCUSSION ADVANCE DIRECTIVE DISCUSSION [facility] Start: 11-05-2022 DEPRESSION ASSESSMENT DEPRESSION ASS ESSMENT [facility] Start: 10-06-2022 Adult depression screening assessment DEPRESSION SCREENING [facility] Start: 07-06-2022 Influenza vaccination [facility] Start: 04-14-2022 COVID-19 VACCINE (5 - Booster for Moderna series) COVID-19 VACCINE (5 - Booster for Moderna series) [facility] Start: 12-28-2021 COVID-19 VACCINE (4 - Booster for Moderna series) COVID-19 VACCINE (4 - Booster for Moderna series) [facility] Start: 2021 RSV Vaccine (1 - 1-d ose 75+ series) RSV Vaccine (1 - 1-dose 75+ series) [facility] Start: 11-05-2021 ADVANCE DIRECTIVE DISCUSSION ADVANCE DIRECTIVE DISCUSSION [facility] Start: 11-05-2021 DEPRESSION ASSESSMENT DEPRESSION ASS ESSMENT [facility] Start: 2011 PNEUMOCOCCAL: 65+ (1 - PCV) PNEUMOCOCCAL: 65+ (1 - PCV) [facility] Start: 2011 PNEUMOVAX AGE 65 AND OVER WITH 5YR LOOKBACK (#1) PNEUMOVAX AGE 65 AND OVER WITH 5YR LOOKBACK (#1) [facility] Start: 2006 RSV Vaccine (1 - 1-d ose 60+ series) RSV Vaccine (1 - 1-dose 60+ series) [facility] Start: 1996 Administration of varicella zoster vaccine Zoster (Shingles) Vaccine (1 of 2) [facility] Start: 1996 SHINGRIX VACCINE (1 of 2) SHINGRIX VACCINE (1 of 2) [facility] Start: 1991 COLOGUARD (FIT-DNA) COLOGUARD (FIT-D NA) [facility] Start: 1991 Colonoscopy COLONOSCOPY [facility] Start: 1991 COLORECTAL CANCER SCREENING COLORECTAL CANCER SCREENING [facility] Start: [address] COLONOGRAPHY [facility] Start: 1991 FECAL OCCULT BLOOD FECAL OCCULT BLOO D [facility] Start: 1991 SIGMOIDOSCOPY SIGMOIDOSCOPY [facility] Start: 1981 LIPID SCREEN LIPID SCREEN [facility] Start: 1965 DTaP,Tdap and Td Vaccines (1 - Tdap) DTaP,Tdap and Td Vaccines (1 - Tdap) [facility] Start: 1965 Urine microalbumin profile [facility] Start: 1964 Adult BMI Follow Up Plan Adult BMI Follow Up Plan [facility] Start: 1964 Anxiety Screening Anxiety Screening [facility] Start: 1964 Depression Screening Depression Scre ening [facility] Start: 1964 HEPATITIS C SCREENING HEPATITIS C [facility] Start: 1964 Hepatitis C screening Hepatitis C [facility] Immunizations Immunization Date Immunization Notes Care Provider Flakito chen 09-10-2024 SARS-COV-2 (COVID-19 ) vaccine, mRNA, spike protein, LNP, PF, 50 mcg/0.5 mL Irwin Douglass [facility] 01-14-2021 COVID-19 Vaccine Moderna - Documentation Purposes Only Young Dean Other [facility] 12-17-2020 COVID-19 Vaccine Moderna - Documentation Purposes Only Young Dean Other [facility] 09-18-2018 pneumococcal polysaccharide vaccine, 23 valent Jun Carrasco MD Work Phone: [employer] 08-30-2015 pneumococcal conjuga te vaccine, 13 valent Young Dean Other [facility] Other 08-05-2015 pneumococcal polysaccharide vaccine, 23 valent Young Dean Other [facility] Other Payers Date Payer Category Payer Unknown AARP AARP [id number] 2022-Present [address] [place] [address] [id number] 2022 Self-pay 2017 Private Health Insurance [facility] AARP SUPPLEMENT [id number] 2017-Present [phone] [address] [place] [address] Indemnity [id number] 2017 Unknown [id number] 2015 Private Health Insurance [id number] 2012 Medicare MEDICARE MEDICAR E A AND B [id number] 2012-Present [phone] [place] [address] Medicare [id number] 2012 Medicare [id number] 2.16.840.1.893646.19 2011 Medicare [id number]. [id number]. [id number] 1959 Medicare [id number] 1946 Unknown [id number] 2.16.840.1.351118.3.579.2. 355 1946 Unknown [id number] 2.16.840.1.704322.3.579.2. 1258 1946 Unknown [id number] 2.16840.1.120703.3.579.2. 1258 1946 Unknown [id number] 2.840.1.808732.3.579.2. 1258 1946 Unknown [id number] 2.840.1.196486.3.579.2. 1258 1946 Unknown [id number] 2.840.1.192043.3.579.2. 1258 1946 Unknown [id number] 2.840.1.752676.3.579.2. 1258 1946 Unknown [id number] 2.840.1.309595.3.579.2. 1258 1946 Unknown [id number] 2.840.1.462717.3.579.2. 1258 1946 Unknown [id number] 2.840.1.321482.3.579.2. 125 1946 Unknown [id number] 2.16840.1.566541.3.579.2. 125 1946 Unknown [id number] 2.16840.1.696524.3.579.2. 1258 1946 Unknown [id number] 2.840.1.763458.3.579.2. 1258 1946 Unknown [id number] 2.16840.1.948401.3.579.2. 1259 1946 Unknown [id number] 2.16.840.1.343304.3.579.2. 1259 1946 Unknown [id number] 2.16.840.1.884347.3.579.2. 1258 1946 Unknown [id number] 2.16.840.1.359448.3.579.2. 1258 1946 Unknown [id number] 2.16.840.1.364917.3.579.2. 125 1946 Unknown [id number] 2.16.840.1.390928.3.579.2. 1258 1946 Unknown [id number] 2.16.840.1.666959.3.579.2. 1258 1946 Unknown [id number] 2.16.840.1.114105.3.579.2. 1258 1946 Unknown [id number] 2.16.840.1.273378.3.579.2. 125 1946 Unknown [id number] 2.16.840.1.119717.3.579.2. 1258 1946 Unknown [id number] 2.16.840.1.967852.3.579.2. 1258 1946 Unknown [id number] 2.16.840.1.327534.3.579.2. 1258 1946 Unknown [id number] 2.16.840.1.706915.3.579.2. 1259 1946 Unknown [id number] 2.16.840.1.889653.3.579.2. 125 1946 Unknown [id number] 2.16.840.1.197339.3.579.2. 1259 Unknown [id number] 2.16.840.1.874711.3.579.2. 531 Unknown [id number] 2.16.840.1.913672.3.579.2. 531 Unknown [facility] [id number] Social History Date Type Detail Facility Start: 03-16-2014 End: 04-26-2023 Tobacco smoking status NHIS Ex-smoker [facility] Start: 11-05-1969 End: 11-05-1994 History of tobacco use Current smoker [facility] Start: 11-05-1969 End: 11-05-1994 History of tobacco use Cigarette Smoker [facility] Start: 03-16-2014 End: 05-05-2024 Cigarettes smoked current (pack per day) - Reported 1 [facility] Start: 03-16-2014 End: 04-26-2023 Tobacco use and exposure Smokeless tobacco non-user [facility] Start: 01-06-2022 End: 08-18-2024 Alcohol intake Current non-drinker of alcohol (finding) [facility] Start: 02-24-2015 History SDOH Alcohol Comment quit 1991 [facility] Start: 1945 Sex Assigned At Not on file [facility] Start: 09-04-2023 End: 05-05-2024 Sex Assigned At [facility] Start: 04-22-2022 End: 08-10-2022 Exposure to SARS-CoV-2 (event) Not sure [facility] Adult Depression Screening Assessment 0 [facility] Start: 1945 Sex Assigned At Male P [facility] History of tobacco use Passive smoker [facility] Start: 06-17-2024 End: 10-06-2024 Alcoholic beverage intake Lifetime non-drinker (finding) [facility] Start: 08-09-2024 Tobacco smoking stat us [facility] Never smoked tobacco (finding) [facility] Medical Equipment Procedure Code Equipment Code Equipment Origin al Text Equipment Identifier Dates Stretch-Coil Dbs Extension 60 - [id number] Start: 05-15-2014 Lead Nrstm 40cm Actv Dbs - [id number] Start: 05-05-2014 Comment on above: Description: LEAD ON LY Ipg Activa Sc Db s Coil Extn - [id number] Start: 05-15-2014 Neurostimulator Activa Sc 0-10.5v 2-250hz 0-25.5ma 2.4inx2.2in .4in - [id number] Start: 12-14-2017 Neurostimulator Activa Rc 10.5-V 2-250hz 2.2inx2.2in .4in Implantable 2 - [id number] Start: 01-06-2022 Stent Uret 6fr 2 6cm W/O Gw Inl - [id number] Start: 02-25-2015 Comment on above: Description: no stri ng Stent Uret 6fr 2 6cm W/O Gw Inl - [id number] Start: 02-25-2015 Stent Uret 6fr 2 6cm W/O Gw Inl - [id number] Start: 03-11-2015 Stent Uret 6fr 2 6cm W/O Gw Inl - [id number] Start: 03-11-2015 Clinical Notes 09-11-2021 to 10-07-2024 Telephone Encounter - Olimpia Bernal - 10/07/2024 10:25 AM ESTTelephone Encounter - Olimpia Bernal - 10/07/2024 10:25 AM Kevin Carrera PT - 10/06/2024 10:00 AM ESTPatient Instructions Note Date & Type Note Facility 10-07-2024 Telephone encounter Note He called and cx his PT tomorrow. I noted tomorrow was his last PT and he due to change of medication, he spoke to [facility], and was advised it would be ok to take a month or 2 off. I told him if needed not to hesitate. [facility] 10-07-2024 Miscellaneous Notes He called and cx his PT tomorrow. I noted tomorrow was his last PT and he due to change of medication, he spoke to [facility], and was advised it would be ok to take a month or 2 off. I told him if needed not to hesitate. documented in this encounter [facility] 10-06-2024 History of Present illness Narrative Physical Therapy Progress Visit Patient Name: Yordan Marroquin Today's Date: 10/06/2024 Encounter Diagnoses Name Primary? Essential tremor Yes Abnormality of gait Poor balance Visit number: 11 Timed Code Treatment Minutes: 45 minutes Total Treatment Time: 45 minutes Time In: 10:00 PM Time Out: 10:49 PM History: Pt states he was seen in therapy earlier this year for balance and worsening of tremors. Was recently seen by neuro due to worsening of neck tremors. Pt states DBS was adjusted at last session. Pt states neuro would like him to have MRI of neck and brain due to neck pain and tremors; pt is unable to schedule MRI until February at [facility] due to DBS. Pt states he has had one fall since he was seen last in therapy. Pt states botox shots were completed to help with neck pain and spasms; however, pt without relief. Wearing supportive devices as needed for home; pt states neck does not tremor when supported; only when upright. Precautions: Falls, DBS Subjective: Pt states he was seen by PCP this morning. Order has been put in for Klonopin. Pt states he will picking that up today to see if tremors are more under control. Pt states tension in neck has been much improved. Pain: 03/14 Objective: PT Evaluation (09/01/2024) Functional Mobility: Gait: TUG without device: 26.43 seconds with CGA. Six Meter Walk Test: 9.69 seconds with CGA. CROM in sittin degrees flexion, 30 degrees extension with increase pain, 38 degrees right rotation with ERP, 50 degrees left rotation without pain, pain also noted at end range left SB (difficulty measuring due to tremors) Strength: Special Test: Central neck pain noted with cervical compression and bilateral Spurling's Sensation: decrease sensation left hand; possibly due to DBS Treatment: Manual Therapy: (13 minutes)Delivered manual therapy to c-spine pt supine, cervical distraction, stretching bilateral UT's, gentle mobs to c-spine, STM to bilateral cervical paraspinals and UT's to improve cervical mobility and decrease pain Therapeutic Exercise: (32 minutes supervised) Guided pt through ther and flex ex per grid to improve cervical scapular and postural muscle strength and functional mobility Therapeutic Activity: Exercises to improve dynamic activities, functional tasks, functional mobility to return to prior activity level as needed. Neuromuscular re-education: () Balance Training, Muscle Facilitation, Dynamic Stability, Core Stabilization, and Blood Flow Restriction Training (BFRT) as needed. Unsupervised. Modalities: Post manual ther, HP to cervical region in supine prior to manual therapy (unavailable)(spoke with PASSENGER BRAKEMAN office who approved moist heat) Assessment: Pt has completed 11 PT sessions for tremors and balance. Progressed to cervical stabilization exercises this date. Min verbal cues for proper form with exercises. Pt completed TUG this date in 14.00 seconds and 12.55 seconds. Will continue to progress as pt tolerates. Outcome Measure: Lower Extremity Functional Scale (LEFS): 24/80 Rehab Diagnosis: neck pain; difficulty walking; falls Short Term Goal: To be met in 2 weeks Goal 1: Pt to be instructed in home exercise program (Met). Can Washer Goals: To be met in 10 weeks Goal 1: Pt to report independence and compliance with home program (Met). Goal 2: Pt to complete TUG in less than 18.0 seconds indicating improved gait and mobility (Progressing). Goal 3: Pt to achieve 55 degrees of bilateral c-spine rotation to assist with driving (Progressing). Goal 4: Pt to score no less than 40/80 on LEFS indicating improved QOL (Progressing). Goal 5: Pt to complete Six Meter Walk Test in less than 6.5 seconds with CGA indicating improved gait (Progressing). Pt will benefit from skilled PT for 2x/week from 09/01/2024 to 11/10/2024 to address the above impairments. I hereby deem this POC medically necessary. Please sign below. Date: documented in this encounter [facility] 10-06-2024 History of Present illness Narrative Associated Problem(s): Essential tremor Add Klonopin CT scan or XR will help Consider Gabapentin or inderal Patient's Medicine is effective at controlling symptoms at current dose and frequency. PDMP reviewed with no evidence of overuse and abuse D/W patient to avoid use of benzodiazepines when consuming alcohol Advised against operating heavy machinery and driving long distances while on medicines. Images from the original note were not included. Subjective Patient ID: Yordan Marroquin is a 78 y.o. male who presents for wanting XR. Pt is wanting an XR due to the shaking of his head , he is doing PT for his neck but wanting to see if there is anything else going on Pt states [facility] Pt states his balance has been off also Dr. Mila Ose[facility]. Has brain stimulator. Last seen 1 month ago. Stimulator helps with hands but not head Current Outpatient Medications on File Prior to Visit Medication Sig Dispense Refill aspirin (ASPIR) 81 MG EC tablet Take 81 mg by mouth Daily busPIRone (Buspar) 10 MG tablet Take 10 mg by mouth in the morning and 10 mg before bedtime. Calcium Carbonate-Vitamin D (Oyster Shell Calcium/D) 500-5 MG-MCG tablet Take 1 tablet by mouth celecoxib (CeleBREX) 200 MG capsule TAKE 1 CAPSULE BY MOUTH TWICE DAILY NEEDED FOR PAIN cetirizine (ZyrTEC) 10 MG tablet Take 1 tablet (10 mg) by mouth Daily 100 tablet 3 cholecalciferol 125 MCG (5000 UT) capsule TAKE 1 CAPSULE BY MOUTH IN THE MORNING 60 capsule 0 fluticasone (Flonase) 50 MCG/ACT nasal spray Administer 1 spray into each nostril in the morning. omeprazole (PriLOSEC) [address] capsule Take 20 mg by mouth in the morning. No current facility-administered medications on file prior to visit. I have reviewed and reconciled the history and medication list with the patient today. Allergies Allergen Reactions Pollen Extract Other Reaction(s): Unknown Bee Venom Rash Penicillins Hives and Rash Social History Tobacco Use Smoking status: Former Types: Cigarettes Passive exposure: Past Smokeless tobacco: Never Vaping Use Vaping status: Never Used Substance Use Topics Alcohol use: Never Drug use: Never Family History Problem Relation Name Age of Onset Cancer Mother Leukemia Mother Stroke Father Past Medical History: Diagnosis Date Atrial fibrillation (CMS/HCC) Hearing aid worn Kidney stones Obstructive sleep apnea Osteoarthritis Pacemaker Patellar dislocation Sleep apnea Tremors of nervous system Past Surgical History: Procedure Laterality Date CARDIAC ELECTROPHYSIOLOGY STUDY AND ABLATION 2018 CYSTOSCOPY DEEP BRAIN STIMULATOR PLACEMENT INSERTION / REMOVAL CRANIAL DBS GENERATOR OTHER SURGICAL HISTORY Left cubital tunnel release [place] REMOVAL OF KIDNEY STONE TOTAL KNEE ARTHROPLASTY Right Visit Vitals Smoking Status Former Review of Systems Constitutional: Negative for chills and fever. Respiratory: Negative for shortness of breath. Cardiovascular: Negative for chest pain. Resolved Sharp pain over breast bone radiated to left chest no jaw bone or arm pain Gastrointestinal: Negative for constipation, diarrhea, nausea and vomiting. Musculoskeletal: Negative for back pain and gait problem. Neurological: Positive for tremors. Negative for dizziness and facial asymmetry. Does see PT Objective Physical Exam Vitals reviewed. Constitutional: Appearance: Normal appearance. HENT: Head: Normocephalic. Cardiovascular: Rate and Rhythm: Normal rate and regular rhythm. Pulses: Normal pulses. Pulmonary: Effort: Pulmonary effort is normal. Breath sounds: Normal breath sounds. Neurological: General: No focal deficit present. Mental Status: He is alert and oriented to person, place, and time. Motor: Tremor present. Comments: Tremor Psychiatric: Mood and Affect: Mood normal. Assessment/Plan Problem List Items Addressed This Visit Essential tremor - Primary No follow-ups on file. documented in this encounter [facility] 09-24-2024 Telephone encounter Note See telephone encounter 09/23/24 [facility] 09-24-2024 Miscellaneous Notes See telephone encounter 09/23/24 Patients contacted the office stating the patient has been shaking since the most recent DBS Adjustment with Mila on 08-18-2024 and when looking up an appointment with Mila for a DBS Adjustment the soonest available is 12-04-2024. Is there anything else that can be done to help the patient reduce the shaking. I offered sooner available appointments for a DBS adjustment at the [facility] and the patients declined and stated they only want to come to [place]. Please advise. documented in this encounter [facility] 09-23-2024 Telephone encounter Note He has the ability to go up on the DBS or he can switch back to the settings he came in on last time (Group A) since they felt it was better. I will have him contacted about this and then we can bring him in when I have an appointment available. PHILIP Rouse [facility] 09-23-2024 Miscellaneous Notes He has the ability to go up on the DBS or he can switch back to the settings he came in on last time (Group A) since they felt it was better. I will have him contacted about this and then we can bring him in when I have an appointment available. PHILIP Roues calling to say that since last DBS adjustment, Elier is shaking more. She wants to be seen again BETHANIE. She requests a message be sent to Mila about this. documented in this encounter [facility] 09-23-2024 Telephone encounter Note Patients contacted the office stating the patient has been shaking since the most recent DBS Adjustment with Mila on 08-18-2024 and when looking up an appointment with Mila for a DBS Adjustment the soonest available is 12-04-2024. Is there anything else that can be done to help the patient reduce the shaking. I offered sooner available appointments for a DBS adjustment at the [facility] and the patients declined and stated they only want to come to [place]. Please advise. [facility] 09-23-2024 Telephone encounter Note calling to say that since last DBS adjustment, Elier is shaking more. She wants to be seen again BETHANIE. She requests a message be sent to Mila about this. [facility] 09-22-2024 History of Present illness Narrative Physical Therapy Treatment Visit Patient Name: Yordan Marroquin Today's Date: 09/22/2024 Encounter Diagnoses Name Primary? Essential tremor Yes Abnormality of gait Visit number: 7 Timed Code Treatment Minutes: 40 minutes Total Treatment Time: 50 minutes Time In: 1100 Time Out: 1153 History: Pt states he was seen in therapy earlier this year for balance and worsening of tremors. Was recently seen by neuro due to worsening of neck tremors. Pt states DBS was adjusted at last session. Pt states neuro would like him to have MRI of neck and brain due to neck pain and tremors; pt is unable to schedule MRI until February at [facility] due to DBS. Pt states he has had one fall since he was seen last in therapy. Pt states botox shots were completed to help with neck pain and spasms; however, pt without relief. Wearing supportive devices as needed for home; pt states neck does not tremor when supported; only when upright. Precautions: Falls, DBS Subjective: Pt states neck is more sore today. Was a little sore following last session; however, believes pain today is due to OA and upcoming rainy days. Appointment on 10/06/24 to pursue an xray. Pain: 06/14 Objective: PT Evaluation (09/01/2024) Functional Mobility: Gait: TUG without device: 26.43 seconds with CGA. Six Meter Walk Test: 9.69 seconds with CGA. CROM in sittin degrees flexion, 30 degrees extension with increase pain, 38 degrees right rotation with ERP, 50 degrees left rotation without pain, pain also noted at end range left SB (difficulty measuring due to tremors) Strength: Special Test: Central neck pain noted with cervical compression and bilateral Spurling's Sensation: decrease sensation left hand; possibly due to DBS Treatment: Education: HEP education with demonstration, Educated on Eval Findings and POC Manual Therapy: (40 minutes)Passive ROM, Joint mobilization, Soft Tissue Mobilization, Myofascial Release, Muscle Energy Technique, Neural Mobilization, Myofascial Cupping, Dry Needling, IASTM, and Scar mobilization as needed. Manual c-spine distraction. Manual stretching bilateral UT's. Gentle mobs to c-spine for improved mobility. STM to bilateral cervical paraspinals and UT's in sitting. Therapeutic Exercise: (minutes) Strength, Endurance, Flexibility, ROM, HEP, Neural Mobilization, Power, and Core Stability as needed. Held balance exercises this date to focus on manual therapy. Therapeutic Activity: Exercises to improve dynamic activities, functional tasks, functional mobility to return to prior activity level as needed. Neuromuscular re-education: () Balance Training, Muscle Facilitation, Dynamic Stability, Core Stabilization, and Blood Flow Restriction Training (BFRT) as needed. Unsupervised. Modalities: Heat, Ice, Lumbar Mechanical Traction, Iontophoresis, and Fluidotherapy as needed. HP to cervical region in supine prior to manual therapy x 10 mins (spoke with PASSENGER BRAKEMAN office who approved moist heat) Assessment: Pt has completed 7 PT sessions for tremors and balance. Held balance exercises to focus on manual therapy this date due to pt complaints of pain severity. Moderate to severe tenderness noted with palpation to right cervical region this date. Will continue to progress as pt tolerates. Outcome Measure: Lower Extremity Functional Scale (LEFS): 24/80 Rehab Diagnosis: neck pain; difficulty walking; falls Short Term Goal: To be met in 2 weeks Goal 1: Pt to be instructed in home exercise program. Can Washer Goals: To be met in 10 weeks Goal 1: Pt to report independence and compliance with home program. Goal 2: Pt to complete TUG in less than 18.0 seconds indicating improved gait and mobility. Goal 3: Pt to achieve 55 degrees of bilateral c-spine rotation to assist with driving. Goal 4: Pt to score no less than 40/80 on LEFS indicating improved QOL. Goal 5: Pt to complete Six Meter Walk Test in less than 6.5 seconds with CGA indicating improved gait. Pt will benefit from skilled PT for 2x/week from 09/01/2024 to 11/10/2024 to address the above impairments. I hereby deem this POC medically necessary. Please sign below. Date: documented in this encounter [facility] 09-17-2024 History of Present illness Narrative Physical Therapy Treatment Visit Patient Name: Yordan Marroquin Today's Date: 09/17/2024 Encounter Diagnoses Name Primary? Essential tremor Yes Abnormality of gait Poor balance Visit number: 6 Timed Code Treatment Minutes: 30 minutes Total Treatment Time: 55 minutes Time In: 1150 Time Out: 1245 History: Pt states he was seen in therapy earlier this year for balance and worsening of tremors. Was recently seen by neuro due to worsening of neck tremors. Pt states DBS was adjusted at last session. Pt states neuro would like him to have MRI of neck and brain due to neck pain and tremors; pt is unable to schedule MRI until February at [facility] due to DBS. Pt states he has had one fall since he was seen last in therapy. Pt states botox shots were completed to help with neck pain and spasms; however, pt without relief. Wearing supportive devices as needed for home; pt states neck does not tremor when supported; only when upright. Precautions: Falls, DBS Subjective: Pt states neck is a little sore, but noticing improved balance. Pt reached out to family doctor and has an appointment on 10/06/24 to pursue an xray. Pain: 05/14 Objective: PT Evaluation (09/01/2024) Functional Mobility: Gait: TUG without device: 26.43 seconds with CGA. Six Meter Walk Test: 9.69 seconds with CGA. CROM in sittin degrees flexion, 30 degrees extension with increase pain, 38 degrees right rotation with ERP, 50 degrees left rotation without pain, pain also noted at end range left SB (difficulty measuring due to tremors) Strength: Special Test: Central neck pain noted with cervical compression and bilateral Spurling's Sensation: decrease sensation left hand; possibly due to DBS Treatment: Education: HEP education with demonstration, Educated on Eval Findings and POC Manual Therapy: (10 minutes)Passive ROM, Joint mobilization, Soft Tissue Mobilization, Myofascial Release, Muscle Energy Technique, Neural Mobilization, Myofascial Cupping, Dry Needling, IASTM, and Scar mobilization as needed. Manual c-spine distraction. Manual stretching bilateral UT's. Gentle mobs to c-spine for improved mobility. STM to bilateral cervical paraspinals. Therapeutic Exercise: (20 minutes) Strength, Endurance, Flexibility, ROM, HEP, Neural Mobilization, Power, and Core Stability as needed. Reviewed HEP with good understanding; added spinal stabilization exercise this date. Therapeutic Activity: Exercises to improve dynamic activities, functional tasks, functional mobility to return to prior activity level as needed. Neuromuscular re-education: () Balance Training, Muscle Facilitation, Dynamic Stability, Core Stabilization, and Blood Flow Restriction Training (BFRT) as needed. Unsupervised. Modalities: Heat, Ice, Lumbar Mechanical Traction, Iontophoresis, and Fluidotherapy as needed. HP to cervical region in supine prior to manual therapy x No heat (spoke with PASSENGER BRAKEMAN office who approved moist heat) Assessment: Pt has completed 6 PT sessions for tremors and balance. Continued moist HP this date prior to manual therapy, noted some tenderness with palpation to UT R/L, noted some relief with MT and MET to R/L UT. Continued standing balance with emphasis on posture and balance, SBA. Will progress toward postural strengthening ex as pain allows. Outcome Measure: Lower Extremity Functional Scale (LEFS): 24/80 Rehab Diagnosis: neck pain; difficulty walking; falls Short Term Goal: To be met in 2 weeks Goal 1: Pt to be instructed in home exercise program. Can Washer Goals: To be met in 10 weeks Goal 1: Pt to report independence and compliance with home program. Goal 2: Pt to complete TUG in less than 18.0 seconds indicating improved gait and mobility. Goal 3: Pt to achieve 55 degrees of bilateral c-spine rotation to assist with driving. Goal 4: Pt to score no less than 40/80 on LEFS indicating improved QOL. Goal 5: Pt to complete Six Meter Walk Test in less than 6.5 seconds with CGA indicating improved gait. Pt will benefit from skilled PT for 2x/week from 09/01/2024 to 11/10/2024 to address the above impairments. I hereby deem this POC medically necessary. Please sign below. Date: Cosigned by Svetlana Carrera, PT at 09/19/2024 1:10 PM EST documented in this encounter [facility] 09-15-2024 History of Present illness Narrative Physical Therapy Treatment Visit Patient Name: Yordan Marroquin Today's Date: 09/15/2024 Encounter Diagnoses Name Primary? Essential tremor Yes Abnormality of gait Poor balance Visit number: 5 Timed Code Treatment Minutes: 55 minutes Total Treatment Time: 60 minutes Time In: 1220 Time Out: 1320 History: Pt states he was seen in therapy earlier this year for balance and worsening of tremors. Was recently seen by neuro due to worsening of neck tremors. Pt states DBS was adjusted at last session. Pt states neuro would like him to have MRI of neck and brain due to neck pain and tremors; pt is unable to schedule MRI until February at [facility] due to DBS. Pt states he has had one fall since he was seen last in therapy. Pt states botox shots were completed to help with neck pain and spasms; however, pt without relief. Wearing supportive devices as needed for home; pt states neck does not tremor when supported; only when upright. Precautions: Falls, DBS Subjective: Pt states neck is a little sore, but noticing improved balance. Pain: 05/14 Objective: PT Evaluation (09/01/2024) Functional Mobility: Gait: TUG without device: 26.43 seconds with CGA. Six Meter Walk Test: 9.69 seconds with CGA. CROM in sittin degrees flexion, 30 degrees extension with increase pain, 38 degrees right rotation with ERP, 50 degrees left rotation without pain, pain also noted at end range left SB (difficulty measuring due to tremors) Strength: Special Test: Central neck pain noted with cervical compression and bilateral Spurling's Sensation: decrease sensation left hand; possibly due to DBS Treatment: Education: HEP education with demonstration, Educated on Eval Findings and POC Manual Therapy: (15 minutes)Passive ROM, Joint mobilization, Soft Tissue Mobilization, Myofascial Release, Muscle Energy Technique, Neural Mobilization, Myofascial Cupping, Dry Needling, IASTM, and Scar mobilization as needed. Manual c-spine distraction. Manual stretching bilateral UT's. Gentle mobs to c-spine for improved mobility. STM to bilateral cervical paraspinals. Therapeutic Exercise: (30 minutes) Strength, Endurance, Flexibility, ROM, HEP, Neural Mobilization, Power, and Core Stability as needed. Reviewed HEP with good understanding; added spinal stabilization exercise this date. Therapeutic Activity: Exercises to improve dynamic activities, functional tasks, functional mobility to return to prior activity level as needed. Neuromuscular re-education: (10 minutes) Balance Training, Muscle Facilitation, Dynamic Stability, Core Stabilization, and Blood Flow Restriction Training (BFRT) as needed. Modalities: Heat, Ice, Lumbar Mechanical Traction, Iontophoresis, and Fluidotherapy as needed. HP to cervical region in supine prior to manual therapy x No heat (spoke with PASSENGER BRAKEMAN office who approved moist heat) Assessment: Pt has completed 4 PT sessions for tremors and balance. Continued moist HP this date prior to manual therapy, noted some tenderness with palpation to UT R/L, noted some relief with MT and introduction to MET to R/L UT. Continued standing balance with emphasis on posture and balance, SBA. Will progress toward postural strengthening ex as pain allows. Outcome Measure: Lower Extremity Functional Scale (LEFS): 24/80 Rehab Diagnosis: neck pain; difficulty walking; falls Short Term Goal: To be met in 2 weeks Goal 1: Pt to be instructed in home exercise program. [facility] Goals: To be met in 10 weeks Goal 1: Pt to report independence and compliance with home program. Goal 2: Pt to complete TUG in less than 18.0 seconds indicating improved gait and mobility. Goal 3: Pt to achieve 55 degrees of bilateral c-spine rotation to assist with driving. Goal 4: Pt to score no less than 40/80 on LEFS indicating improved QOL. Goal 5: Pt to complete Six Meter Walk Test in less than 6.5 seconds with CGA indicating improved gait. Pt will benefit from skilled PT for 2x/week from 09/01/2024 to 11/10/2024 to address the above impairments. I hereby deem this POC medically necessary. Please sign below. Date: Cosigned by Svetlana Carrera, PT at 09/19/2024 1:08 PM EST documented in this encounter [facility] 09-08-2024 History of Present illness Narrative Physical Therapy Treatment Visit Patient Name: Yordan Marroquin Today's Date: 09/08/2024 Encounter Diagnoses Name Primary? Essential tremor Yes Abnormality of gait Poor balance Visit number: 3 Timed Code Treatment Minutes: 27 minutes Total Treatment Time: 37 minutes Time In: 1115 Time Out: 1155 History: Pt states he was seen in therapy earlier this year for balance and worsening of tremors. Was recently seen by neuro due to worsening of neck tremors. Pt states DBS was adjusted at last session. Pt states neuro would like him to have MRI of neck and brain due to neck pain and tremors; pt is unable to schedule MRI until February at [facility] due to DBS. Pt states he has had one fall since he was seen last in therapy. Pt states botox shots were completed to help with neck pain and spasms; however, pt without relief. Wearing supportive devices as needed for home; pt states neck does not tremor when supported; only when upright. Precautions: Falls, DBS Subjective: Pt states following last session, neck was pretty sore; however, states he feels like his balance has gradually improved. Pain: 05/14 Objective: PT Evaluation (09/01/2024) Functional Mobility: Gait: TUG without device: 26.43 seconds with CGA. Six Meter Walk Test: 9.69 seconds with CGA. CROM in sittin degrees flexion, 30 degrees extension with increase pain, 38 degrees right rotation with ERP, 50 degrees left rotation without pain, pain also noted at end range left SB (difficulty measuring due to tremors) Strength: Special Test: Central neck pain noted with cervical compression and bilateral Spurling's Sensation: decrease sensation left hand; possibly due to DBS Treatment: Education: HEP education with demonstration, Educated on Eval Findings and POC Manual Therapy: (27 minutes)Passive ROM, Joint mobilization, Soft Tissue Mobilization, Myofascial Release, Muscle Energy Technique, Neural Mobilization, Myofascial Cupping, Dry Needling, IASTM, and Scar mobilization as needed. Manual c-spine distraction. Manual stretching bilateral UT's. Gentle mobs to c-spine for improved mobility. STM to bilateral cervical paraspinals. Therapeutic Exercise: () Strength, Endurance, Flexibility, ROM, HEP, Neural Mobilization, Power, and Core Stability as needed. Reviewed HEP with good understanding; added spinal stabilization exercise this date. Therapeutic Activity: Exercises to improve dynamic activities, functional tasks, functional mobility to return to prior activity level as needed. Neuromuscular re-education: Balance Training, Muscle Facilitation, Dynamic Stability, Core Stabilization, and Blood Flow Restriction Training (BFRT) as needed. Modalities: Heat, Ice, Electrical Stimulation, Ultrasound, Cervical Mechanical Traction, Lumbar Mechanical Traction, Iontophoresis, and Fluidotherapy as needed. HP to cervical region in supine prior to manual therapy x 10 mins (spoke with PASSENGER BRAKEMAN office who approved moist heat) Assessment: Pt has completed 3 PT sessions for tremors and balance. Added moist HP this date prior to manual therapy. Will progress toward postural strengthening ex as pain allows. Outcome Measure: Lower Extremity Functional Scale (LEFS): 24/80 Rehab Diagnosis: neck pain; difficulty walking; falls Short Term Goal: To be met in 2 weeks Goal 1: Pt to be instructed in home exercise program. [facility] Goals: To be met in 10 weeks Goal 1: Pt to report independence and compliance with home program. Goal 2: Pt to complete TUG in less than 18.0 seconds indicating improved gait and mobility. Goal 3: Pt to achieve 55 degrees of bilateral c-spine rotation to assist with driving. Goal 4: Pt to score no less than 40/80 on LEFS indicating improved QOL. Goal 5: Pt to complete Six Meter Walk Test in less than 6.5 seconds with CGA indicating improved gait. Pt will benefit from skilled PT for 2x/week from 09/01/2024 to 11/10/2024 to address the above impairments. I hereby deem this POC medically necessary. Please sign below. Date: documented in this encounter [facility] 09-03-2024 Telephone encounter Note Scot would like to know if it is it ok to use moist hot pack on neck Right VIM DBS implanted in 2013 [facility] 09-03-2024 Miscellaneous Notes Scot would like to know if it is it ok to use moist hot pack on neck Right VIM DBS implanted in 2013 Scot from [facility] phoned regarding questions about pt's DBS. [phone] documented in this encounter [facility] 09-03-2024 Telephone encounter Note Scot from [facility] phoned regarding questions about pt's DBS. [phone] [facility] 09-03-2024 History of Present illness Narrative Physical Therapy Treatment Visit Patient Name: Yordan Marroquin Today's Date: 09/03/2024 Encounter Diagnoses Name Primary? Essential tremor Yes Abnormality of gait Poor balance Visit number: 2 Timed Code Treatment Minutes: 39 minutes Total Treatment Time: 39 minutes Time In: 1100 Time Out: 1148 History: Pt states he was seen in therapy earlier this year for balance and worsening of tremors. Was recently seen by neuro due to worsening of neck tremors. Pt states DBS was adjusted at last session. Pt states neuro would like him to have MRI of neck and brain due to neck pain and tremors; pt is unable to schedule MRI until February at [facility] due to DBS. Pt states he has had one fall since he was seen last in therapy. Pt states botox shots were completed to help with neck pain and spasms; however, pt without relief. Wearing supportive devices as needed for home; pt states neck does not tremor when supported; only when upright. Precautions: Falls, DBS Subjective: Pt states he has been doing stretches at home and now neck is more sore. Pain today rates about /10. Pain: 10 Objective: PT Evaluation (09/01/2024) Functional Mobility: Gait: TUG without device: 26.43 seconds with CGA. Six Meter Walk Test: 9.69 seconds with CGA. CROM in sittin degrees flexion, 30 degrees extension with increase pain, 38 degrees right rotation with ERP, 50 degrees left rotation without pain, pain also noted at end range left SB (difficulty measuring due to tremors) Strength: Special Test: Central neck pain noted with cervical compression and bilateral Spurling's Sensation: decrease sensation left hand; possibly due to DBS Treatment: Education: HEP education with demonstration, Educated on Eval Findings and POC Manual Therapy: (31 minutes)Passive ROM, Joint mobilization, Soft Tissue Mobilization, Myofascial Release, Muscle Energy Technique, Neural Mobilization, Myofascial Cupping, Dry Needling, IASTM, and Scar mobilization as needed. Manual c-spine distraction. Manual stretching bilateral UT's. Gentle mobs to c-spine for improved mobility. STM to bilateral cervical paraspinals. Therapeutic Exercise: (8 minutes) Strength, Endurance, Flexibility, ROM, HEP, Neural Mobilization, Power, and Core Stability as needed. Reviewed HEP with good understanding; added spinal stabilization exercise this date. Therapeutic Activity: Exercises to improve dynamic activities, functional tasks, functional mobility to return to prior activity level as needed. Neuromuscular re-education: Balance Training, Muscle Facilitation, Dynamic Stability, Core Stabilization, and Blood Flow Restriction Training (BFRT) as needed. Modalities: Heat, Ice, Electrical Stimulation, Ultrasound, Cervical Mechanical Traction, Lumbar Mechanical Traction, Iontophoresis, and Fluidotherapy as needed. Assessment: Pt has completed 2 PT sessions for tremors and balance. Focused on manual therapy this date to improve cervical mobility and ROM. Pt with moderate tenderness left upper c-spine. Will continue to progress as pt tolerates. Outcome Measure: Lower Extremity Functional Scale (LEFS): 24/80 Rehab Diagnosis: neck pain; difficulty walking; falls Short Term Goal: To be met in 2 weeks Goal 1: Pt to be instructed in home exercise program. [facility] Goals: To be met in 10 weeks Goal 1: Pt to report independence and compliance with home program. Goal 2: Pt to complete TUG in less than 18.0 seconds indicating improved gait and mobility. Goal 3: Pt to achieve 55 degrees of bilateral c-spine rotation to assist with driving. Goal 4: Pt to score no less than 40/80 on LEFS indicating improved QOL. Goal 5: Pt to complete Six Meter Walk Test in less than 6.5 seconds with CGA indicating improved gait. Pt will benefit from skilled PT for 2x/week from 09/01/2024 to 11/10/2024 to address the above impairments. I hereby deem this POC medically necessary. Please sign below. Date: documented in this encounter [facility] 09-01-2024 History of Present illness Narrative Physical Therapy Evaluation Visit Patient Name: Yordan Marroquin Today's Date: 09/01/2024 Encounter Diagnoses Name Primary? Essential tremor Yes Abnormality of gait Visit number: 1 Timed Code Treatment Minutes: 53 minutes Total Treatment Time: 53 minutes Time In: 1100 Time Out: 1158 History: Pt states he was seen in therapy earlier this year for balance and worsening of tremors. Was recently seen by neuro due to worsening of neck tremors. Pt states DBS was adjusted at last session. Pt states neuro would like him to have MRI of neck and brain due to neck pain and tremors; pt is unable to schedule MRI until February at [facility] due to DBS. Pt states he has had one fall since he was seen last in therapy. Pt states botox shots were completed to help with neck pain and spasms; however, pt without relief. Wearing supportive devices as needed for home; pt states neck does not tremor when supported; only when upright. Precautions: Falls, DBS Subjective: neck pain Pain: Objective: PT Evaluation (09/01/2024) Functional Mobility: Gait: TUG without device: 26.43 seconds with CGA. Six Meter Walk Test: 9.69 seconds with CGA. CROM in sittin degrees flexion, 30 degrees extension with increase pain, 38 degrees right rotation with ERP, 50 degrees left rotation without pain, pain also noted at end range left SB (difficulty measuring due to tremors) Strength: Special Test: Central neck pain noted with cervical compression and bilateral Spurling's Sensation: decrease sensation left hand; possibly due to DBS Treatment: Education: HEP education with demonstration, Educated on Eval Findings and POC Manual Therapy: Passive ROM, Joint mobilization, Soft Tissue Mobilization, Myofascial Release, Muscle Energy Technique, Neural Mobilization, Myofascial Cupping, Dry Needling, IASTM, and Scar mobilization as needed. Therapeutic Exercise: (14 minutes) Strength, Endurance, Flexibility, ROM, HEP, Neural Mobilization, Power, and Core Stability as needed. Pt performed and instructed in home program this date; written instructions and pictures issued with good pt understanding. Therapeutic Activity: Exercises to improve dynamic activities, functional tasks, functional mobility to return to prior activity level as needed. Neuromuscular re-education: Balance Training, Muscle Facilitation, Dynamic Stability, Core Stabilization, and Blood Flow Restriction Training (BFRT) as needed. Modalities: Heat, Ice, Electrical Stimulation, Ultrasound, Cervical Mechanical Traction, Lumbar Mechanical Traction, Iontophoresis, and Fluidotherapy as needed. Assessment: Pt is 78 y/o male with complaints of neck pain and difficulty walking. Pt with h/o falls due to decrease balance caused by moderate to severe neck tremor. Limited CROM and mobility noted due to pain. Pt will benefit from PT to address deficits. Outcome Measure: Lower Extremity Functional Scale (LEFS): Rehab Diagnosis: neck pain; difficulty walking; falls Short Term Goal: To be met in 2 weeks Goal 1: Pt to be instructed in home exercise program. [facility] Goals: To be met in 10 weeks Goal 1: Pt to report independence and compliance with home program. Goal 2: Pt to complete TUG in less than 18.0 seconds indicating improved gait and mobility. Goal 3: Pt to achieve 55 degrees of bilateral c-spine rotation to assist with driving. Goal 4: Pt to score no less than 40/80 on LEFS indicating improved QOL. Goal 5: Pt to complete Six Meter Walk Test in less than 6.5 seconds with CGA indicating improved gait. Pt will benefit from skilled PT for 2x/week from 09/01/2024 to 11/10/2024 to address the above impairments. I hereby deem this POC medically necessary. Please sign below. Date: documented in this encounter [facility] 08-18-2024 Instructions Mila Andino APRN.[facility] 08/18/2024 2:00 PM EDT It was a pleasure to see you today. We addressed the following diagnoses: Anxiety Essential tremor (primary encounter diagnosis) S/p deep brain stimulator placement Gait disorder My recommendations are as follows: 08/18/2024 Visit: Essential tremor/DBS: You are on new settings GROUP B. You do have a range to increase it if needed, but please leave them here for at least 1 week. You then have the ability to increase the DBS but wait at least 5 days between making changes and only go up by one push each time. If at any point you feel your symptoms are well controlled, please do not increase them further. If at any point you feel you do not tolerate a change, please go back to the last tolerated setting, make note of the side effects you experienced and at which number and let me know. At this time, you cannot increase above 4.4 V for the left side of your body. If needed, you can return to the settings you came in on, GROUP A. Walking and balance: I have ordered physical therapy for you Consider having the numbness in your feet evaluated for neuropathy MRI when you are ready of the neck and brain Cognition: We will continue to monitor Anxiety: Continue Buspar 10mg three times daily Movement Disorders Medication Schedule: Medications 6am 1pm 6pm Buspar 10mg 1 1 1 Return at or around: 02/16/25 If there are any concerns before your next visit, please call or you can send a message through [employer]. You can also now schedule and select appointments through [employer]. Mila Andino APRN.LAURIE documented in this encounter [facility] 08-18-2024 Note HNO ID: [id number] Author: MILA ANDINO APRN.LAURIE Service: ? Author Type: Nurse Practitioner Type: Procedures Filed: 08/24/2024 19:07 Note Text: DBS programming: Right chest RC-placed in January 2022 Battery: 100% with excellent coupling-LELE 01/03/36 System impedances were checked and are within normal ranges. INITIAL SETTINGS: ACTIVE GROUP A Right VIM DBS 3 - 2+ 5.0 V (3.0-5.0) 100 uS 185 Hz Therapeutic impedance 1065 current 4.7 INACTIVE GROUP B 2-3+ 3.8 (2.0-4.4) V 60uS 130Hz FINAL SETTINGS: ACTIVE GROUP B 2-3+ 3.8 (2.0-4.4) V 60uS 180Hz INACTIVE GROUP A BASELINE SETTINGS Right VIM DBS 3 - 2+ 5.0 V (3.0-5.0) 100 uS 185 Hz Today's programmin:23pm-1:49pm 3 - 2+ 5.0 V (3.0-5.0) 100 uS 185 Hz Baseline settings Switched to Group B 2-3+ 3.8 V 60uS 130Hz and tremor was much better when drawing and writing and he said it felt much better also 2-3+ 3.8 V 60uS 135-150Hz Gradually better but similar [id number] being the best 2-3+ 3.8 V 60uS 160-165Hz transient tingling 2-3+ 3.8 V 60uS 170-175 Hz no tingling 2-3+ 3.8 V 60uS 175-180Hz transient tingling 2-3+ 3.8 V 60uS 180Hz He feels the tremor is much better in regard to a spiral, writing, drinking (though still needs a straw) but can eat much better with a spoon (simulated this with torn up paper in a cup). No side effects. Checked for a range in amplitude and went up to 4.4 V without any problems Of note, his head is much better also, but I am not sure if it is related to the DBS or if he is just more calm than he was initially when he came in since we have not typically seen benefit in this. Programming 03/04/24 Right VIM DBS 3 - [...] good, he did have a little more (more content not included)... [facility] 08-18-2024 Procedure note DBS programming: Right chest RC-placed in January 2022 Battery: 100% with excellent coupling-LELE 01/03/36 System impedances were checked and are within normal ranges. INITIAL SETTINGS: ACTIVE GROUP A Right VIM DBS 3 - 2+ 5.0 V (3.0-5.0) 100 uS 185 Hz Therapeutic impedance 1065 current 4.7 INACTIVE GROUP B 2-3+ 3.8 (2.0-4.4) V 60uS 130Hz FINAL SETTINGS: ACTIVE GROUP B 2-3+ 3.8 (2.0-4.4) V 60uS 180Hz INACTIVE GROUP A BASELINE SETTINGS Right VIM DBS 3 - 2+ 5.0 V (3.0-5.0) 100 uS 185 Hz Today's programmin:23pm-1:49pm 3 - 2+ 5.0 V (3.0-5.0) 100 uS 185 Hz Baseline settings Switched to Group B 2-3+ 3.8 V 60uS 130Hz and tremor was much better when drawing and writing and he said it felt much better also 2-3+ 3.8 V 60uS 135-150Hz Gradually better but similar [id number] being the best 2-3+ 3.8 V 60uS 160-165Hz transient tingling 2-3+ 3.8 V 60uS 170-175 Hz no tingling 2-3+ 3.8 V 60uS 175-180Hz transient tingling 2-3+ 3.8 V 60uS 180Hz He feels the tremor is much better in regard to a spiral, writing, drinking (though still needs a straw) but can eat much better with a spoon (simulated this with torn up paper in a cup). No side effects. Checked for a range in amplitude and went up to 4.4 V without any problems Of note, his head is much better also, but I am not sure if it is related to the DBS or if he is just more calm than he was initially when he came in since we have not typically seen benefit in this. Programming 03/04/24 Right VIM DBS 3 - [...] his eye started closing but then relaxed. T [facility] 08-18-2024 Procedure note DBS programming: Right chest RC-placed in January 2022 Battery: 100% with excellent coupling-LELE 01/03/36 System impedances were checked and are within normal ranges. INITIAL SETTINGS: ACTIVE GROUP A Right VIM DBS 3 - 2+ 5.0 V (3.0-5.0) 100 uS 185 Hz Therapeutic impedance 1065 current 4.7 INACTIVE GROUP B 2-3+ 3.8 (2.0-4.4) V 60uS 130Hz FINAL SETTINGS: ACTIVE GROUP B 2-3+ 3.8 (2.0-4.4) V 60uS 180Hz INACTIVE GROUP A BASELINE SETTINGS Right VIM DBS 3 - 2+ 5.0 V (3.0-5.0) 100 uS 185 Hz Today's programmin:23pm-1:49pm 3 - 2+ 5.0 V (3.0-5.0) 100 uS 185 Hz Baseline settings Switched to Group B 2-3+ 3.8 V 60uS 130Hz and tremor was much better when drawing and writing and he said it felt much better also 2-3+ 3.8 V 60uS 135-150Hz Gradually better but similar [id number] being the best 2-3+ 3.8 V 60uS 160-165Hz transient tingling 2-3+ 3.8 V 60uS 170-175 Hz no tingling 2-3+ 3.8 V 60uS 175-180Hz transient tingling 2-3+ 3.8 V 60uS 180Hz He feels the tremor is much better in regard to a spiral, writing, drinking (though still needs a straw) but can eat much better with a spoon (simulated this with torn up paper in a cup). No side effects. Checked for a range in amplitude and went up to 4.4 V without any problems Of note, his head is much better also, but I am not sure if it is related to the DBS or if he is just more calm than he was initially when he came in since we have not typically seen benefit in this. Programming 03/04/24 Right VIM DBS 3 - [...] but then relaxed. documented in this encounter [facility] 08-18-2024 Note HNO ID: [id number] Author: MILA ANDINO APRN.LAURIE Service: ? Author Type: Nurse Practitioner Type: Progress Notes Filed: 08/24/2024 19:07 Note Text: [facility] - FOLLOW UP EVALUATION Ny Hoyos DO [address] [place] [address] Dear Ny Hoyos DO: I had the pleasure of seeing Mr. Marroquin for follow-up today. As you know he is a 78 year old left-handed male with a history of essential tremor since 2008. He had Right VIM DBS implanted in 2013. His battery was last replaced in January 2022 with an RC. He is seen with his . Subjective Previous Plan-04/22/2024 Visit: Essential tremor: Continue current DBS settings Walking and balance: I have ordered physical therapy for you Cognition: We will continue to monitor Anxiety: Continue Buspar 10mg two times daily Interval History: His tremor is much worse. He tried the Buspar three times daily again as he was having a lot of anxiety and this time he is tolerating it better. His balance is still a problem. He did not finish his physical therapy as he was hospitalized for chest pain. Movement Disorders Medications Schedule - as of the start of the visit: Medications 6am 4pm Buspar 10mg 1 1 Questionnaires: In addition, the following activities of daily living that may be affected by tremors were evaluated: Speaking: Affected (severe) Feeding: Bringing Liquids to Mouth: Affected (severe) Hygiene: Affected (moderate) Dressing: Affected (moderate) Writing: Affected (marked) Working: Affected (moderate) Number of falls in the Last Month: 0 Mood/Behavior Depression: PHQ-9 Score: 7 usually representing mild (5-9) depression. Anxiety: Finally, the following table shows the patient's overall global physical and mental health using the PROMIS scale: PROMIS-10 Flowsheet Row Office Visit from 08/18/2024 in Neurology Office Visit from 03/04/2024 in Neurology Global Physical Health T Score 42.3 50.8 Global Mental Health T Score -- 43.5 0-10 Standard Pain Scale 3 3 *PROMIS-10 scoring scale: mean = 50, over 50 is above average, under 50 is below average ALLERGIES Allergen Reactions Bee Sting Rash Penicillins Hives Seasonal Allergies Unknown Current Outpatient Medications Medication Sig doxycycline hyclate (VIBRAMYCIN) 100 mg capsule Take 1 capsule by mouth every 12 hours. cetirizine (ZYRTEC) 10 mg tablet once daily. celecoxib (CELEBREX) 200 mg capsule take 1 capsule by mouth twice daily as needed for pain Cholecalciferol, Vitamin D3, 125 mcg (5,000 unit) cap Take 1 capsule by mouth every morning. omeprazole (PRILOSEC) 20 mg capsule Take 20 mg by mouth once daily. aspirin, enteric coated (ASPIRIN, ENTERIC COATED) 81 mg EC tablet Take 81 mg by mouth once daily. fluticasone (FLONASE) 50 mcg/actuation nasal spray Use 1 [place] in each nostril once daily. docusate sodium (COLACE) 100 mg capsule Take 1 capsule by mouth twice daily as needed for Constipation. busPIRone (BUSPAR) 10 mg tablet Take 1 tablet by mouth three times a day. No current facility-administered medications for this visit. Objective Vital Signs: BP 129/76 (BP Site: Right Arm, BP Position: Sitting, BP Cuff Size: Regular Adult) Pulse 71 Ht 188 cm (6' 2 ) Wt 99.7 kg (219 lb 12.8 oz) SpO2 94% BMI 28.22 kg/m? Orthostatic Vitals: None for this encounter Weight: 99.7 kg (219 lb 12.8 oz) Height: 188 cm (6' 2 ) No LMP for male patient. Body mass index is 28.22 kg/m?. Movement Disorders Scales Performed: Lmoc-Hlzhxp-Lgdea Tremor Scale Medication OFF/ON Time of Assessment Time of Last Medication Last Medication Taken DBS_Right DBS_Left Face Tremor At Rest: 0 - None. Tongue Tremor At Rest: 0 - None. Posture Holdin - None. Voice Tremor Action and Intention: 0 - None. Head Tremor At Rest: 4 - Severe amplitude. Posture Holdin - Severe amplitude. RUE Tremor At Rest: 0 - None. Posture Holdin - Slight. May be intermittent. Action and Intention: 2 - Moderate amplitude. May be intermittent. LUE Tremor At Rest: 0 - None. Posture Holdin - None. Action and Intention: 1 - Slight. May be intermittent. Trunk Tremor At Rest: 0 - None. Posture Holdin - None. RLE Tremor At Rest: 0 - None. Posture Holdin - None. Action and Intention: 0 - None. LLE Tremor At Rest: 0 - None. Posture Holdin - None Action and Intention: 0 - None. Tremor Exam Subscore: 12 Pertinent Studies 04/19/21 [id number] 06/09/[address] Impression: Right DBS placement with resolution of pneumocephalus. No acute intracranial process. Assessment and Plan: Assessment Mr. Marroquin is a left-handed 78 year old year old male with essential tremor since 2008. He had Right VIM DBS implanted in 2013. His battery was last replaced in January 2022 with an RC. He also has anxiety. Programming was done today with good benefit. He will let me (more content not included)... [facility] 08-18-2024 History of Present illness Narrative [facility] - FOLLOW UP EVALUATION Ny Hoyos DO [address] [place] [address] Dear Ny Hoyos DO: I had the pleasure of seeing Mr. Marroquin for follow-up today. As you know he is a 78 year old left-handed male with a history of essential tremor since 2008. He had Right VIM DBS implanted in 2013. His battery was last replaced in January 2022 with an RC. He is seen with his . Subjective Previous Plan-04/22/2024 Visit: Essential tremor: Continue current DBS settings Walking and balance: I have ordered physical therapy for you Cognition: We will continue to monitor Anxiety: Continue Buspar 10mg two times daily Interval History: His tremor is much worse. He tried the Buspar three times daily again as he was having a lot of anxiety and this time he is tolerating it better. His balance is still a problem. He did not finish his physical therapy as he was hospitalized for chest pain. Movement Disorders Medications Schedule - as of the start of the visit: Medications 6am 4pm Buspar 10mg 1 1 Questionnaires: In addition, the following activities of daily living that may be affected by tremors were evaluated: Speaking: Affected (severe) Feeding: Bringing Liquids to Mouth: Affected (severe) Hygiene: Affected (moderate) Dressing: Affected (moderate) Writing: Affected (marked) Working: Affected (moderate) Number of falls in the Last Month: 0 Mood/Behavior Depression: PHQ-9 Score: 7 usually representing mild (5-9) depression. Anxiety: Finally, the following table shows the patient's overall global physical and mental health using the PROMIS scale: PROMIS-10 Flowsheet Row Office Visit from 08/18/2024 in Neurology Office Visit from 03/04/2024 in Neurology Global Physical Health T Score 42.3 50.8 Global Mental Health T Score -- 43.5 0-10 Standard Pain Scale 3 3 *PROMIS-10 scoring scale: mean = 50, over 50 is above average, under 50 is below average ALLERGIES Allergen Reactions Bee Sting Rash Penicillins Hives Seasonal Allergies Unknown Current Outpatient Medications Medication Sig doxycycline hyclate (VIBRAMYCIN) 100 mg capsule Take 1 capsule by mouth every 12 hours. cetirizine (ZYRTEC) 10 mg tablet once daily. celecoxib (CELEBREX) 200 mg capsule take 1 capsule by mouth twice daily as needed for pain Cholecalciferol, Vitamin D3, 125 mcg (5,000 unit) cap Take 1 capsule by mouth every morning. omeprazole (PRILOSEC) 20 mg capsule Take 20 mg by mouth once daily. aspirin, enteric coated (ASPIRIN, ENTERIC COATED) 81 mg EC tablet Take 81 mg by mouth once daily. fluticasone (FLONASE) 50 mcg/actuation nasal spray Use 1 [place] in each nostril once daily. docusate sodium (COLACE) 100 mg capsule Take 1 capsule by mouth twice daily as needed for Constipation. busPIRone (BUSPAR) 10 mg tablet Take 1 tablet by mouth three times a day. No current facility-administered medications for this visit. Objective Vital Signs: BP 129/76 (BP Site: Right Arm, BP Position: Sitting, BP Cuff Size: Regular Adult) Pulse 71 Ht 188 cm (6' 2 ) Wt 99.7 kg (219 lb 12.8 oz) SpO2 94% BMI 28.22 kg/m Orthostatic Vitals: None for this encounter Weight: 99.7 kg (219 lb 12.8 oz) Height: 188 cm (6' 2 ) No LMP for male patient. Body mass index is 28.22 kg/m . Movement Disorders Scales Performed: Oslf-Uwkqpi-Zvpsi Tremor Scale Medication OFF/ON Time of Assessment Time of Last Medication Last Medication Taken DBS_Right DBS_Left Face Tremor At Rest: 0 - None. Tongue Tremor At Rest: 0 - None. Posture Holdin - None. Voice Tremor Action and Intention: 0 - None. Head Tremor At Rest: 4 - Severe amplitude. Posture Holdin - Severe amplitude. RUE Tremor At Rest: 0 - None. Posture Holdin - Slight. May be intermittent. Action and Intention: 2 - Moderate amplitude. May be intermittent. LUE Tremor At Rest: 0 - None. Posture Holdin - None. Action and Intention: 1 - Slight. May be intermittent. Trunk Tremor At Rest: 0 - None. Posture Holdin - None. RLE Tremor At Rest: 0 - None. Posture Holdin - None. Action and Intention: 0 - None. LLE Tremor At Rest: 0 - None. Posture Holdin - None Action and Intention: 0 - None. Tremor Exam Subscore: 12 Pertinent Studies 04/19/21 B12 [id number] 06/09/[address] Impression: Right DBS placement with resolution of pneumocephalus. No acute intracranial process. Assessment and Plan: Assessment Mr. Marroquin is a left-handed 78 year old year old male with essential tremor since 2008. He had Right VIM DBS implanted in 2013. His battery was last replaced in January 2022 with an RC. He also has anxiety. Programming was done today with good benefit. He will let me know if it does not hold. I again discussed with him an MRI brain for cognition and balance as well as a cervical spine MRI but he does not want to get these done at this time. Other concerns were addressed as noted below. The following are the current problems noted and addressed during this visit: Anxiety Essential tremor (primary encounter diagnosis) S/p deep brain stimulator placement Gait disorder Plan 08/18/2024 Visit: Essential tremor/DBS: You are on new settings GROUP B. You do have a range to increase it if needed, but please leave them here for at least 1 week. You then have the ability to increase the DBS but wait at least 5 days between making changes and only go up by one push each time. If at any point you feel your symptoms are well controlled, please do not increase them further. If at any point you feel you do not tolerate a change, please go back to the last tolerated setting, make note of the side effects you experienced and at which number and let me know. At this time, you cannot increase above 4.4 V for the left side of your body. If needed, you can return to the settings you came in on, GROUP A. Walking and balance: I have ordered physical therapy for you Consider having the numbness in your feet evaluated for neuropathy MRI when you are ready of the neck and brain Cognition: We will continue to monitor Anxiety: Continue Buspar 10mg three times daily Updated Movement Disorders Medication Schedule: Medications 6am 1pm 6pm Buspar 10mg 1 1 1 Return at or around: 02/16/25 Level of service : 28527 (20-29 min). Time spent 26 min on the day of service, which included preparing to see the patient, tjuu-fb-hxol patient care, completing clinical documentation, obtaining and/or reviewing separately obtained history, performing a medically appropriate examination, and counseling and educating the patient/family/caregiver. This does not include DBS analysis and/or programming time. Total time spent complex programming deep brain stimulators: 26 (1:23pm-1:49pm) minutes. Multiple symptoms and potential side effects were monitored such as a reduction of symptoms as well as side effects including but not limited to paresthesias, tonic contractions, lightheadedness, speech changes and gait changes. Mila Andino APRN.GIS DATABASE ADMINISTRATOR documented in this encounter [facility] 08-07-2024 History of Present illness Narrative Patient: Yordan Marroquin : 1945 PCP: Rasheed Lucas MD SUBJECTIVE This is a 78 y.o. male that presents today with a CC of elongated, thick nails. Pt states nails have been elongated and thick for many years and cause pain with ambulation in shoegear. Pt has tried previous treatment with minimal relief. Pt presents today for nail care and treatment. Patient has history of rheumatoid arthritis Patient uses creams to feet periodically Allergies: Allergies Allergen Reactions Pollen Extract Other Reaction(s): Unknown Bee Venom Rash Penicillins Hives and Rash Past Medical History: Past Medical History: Diagnosis Date Atrial fibrillation (CMS/HCC) Hearing aid worn Kidney stones Obstructive sleep apnea Osteoarthritis Pacemaker Patellar dislocation Sleep apnea Tremors of nervous system Medications: Current Outpatient Medications: aspirin (ASPIR) 81 MG EC tablet, Take 81 mg by mouth Daily, Disp: , Rfl: busPIRone (Buspar) 10 MG tablet, Take 10 mg by mouth in the morning and 10 mg before bedtime., Disp: , Rfl: Calcium Carbonate-Vitamin D (Oyster Shell Calcium/D) 500-5 MG-MCG tablet, Take 1 tablet by mouth, Disp: , Rfl: celecoxib (CeleBREX) 200 MG capsule, TAKE 1 CAPSULE BY MOUTH TWICE DAILY NEEDED FOR PAIN, Disp: , Rfl: cetirizine (ZyrTEC) 10 MG tablet, Take 1 tablet (10 mg) by mouth Daily, Disp: 360 tablet, Rfl: 0 cholecalciferol 125 MCG (5000 UT) capsule, TAKE 1 CAPSULE BY MOUTH IN THE MORNING, Disp: 60 capsule, Rfl: 0 fluticasone (Flonase) 50 MCG/ACT nasal spray, Administer 1 spray into each nostril in the morning., Disp: , Rfl: omeprazole (PriLOSEC) [address] capsule, Take 20 mg by mouth in the morning., Disp: , Rfl: Social History: Social History Socioeconomic History Marital status: Spouse name: Not on file Number of children: Not on file Years of education: Not on file Highest education level: Not on file Occupational History Not on file Tobacco Use Smoking status: Former Types: Cigarettes Passive exposure: Past Smokeless tobacco: Never Vaping Use Vaping status: Never Used Substance and Sexual Activity Alcohol use: Never Drug use: Never Sexual activity: Defer Other Topics Concern Not on file Social History Narrative Not on file Social Determinants of Health Financial Resource Strain: Not on file Food Insecurity: No Food Insecurity (05/22/2023) Received from [employer], [employer], [employer] Hunger Screening Within the past 12 months we worried whether our food would run out before we got money to buy more.: Never True Within the past 12 months the food we bought just didn't last and we didn't have money to get more.: Never True Transportation Needs: Not on file Physical Activity: Not on file Stress: Not on file Social Connections: Not on file Intimate Partner Violence: Not on file Housing Stability: Not on file ROS: General: denies fever, chills, fatigue, malaise OBJECTIVE LE EXAM: DERM: Elongated thick yellow crumbly nails digits 1 through 10. Positive hair growth b/l feet. Greatly diminished dry and scaly skin to bilateral heels with reduction and fissures VASC: Positive palpable pedal pulses bilaterally NEURO: Gross sensation intact to bilateral feet ORTHO: Positive pain on palpation to nails 1 through 10 ASSESSMENT 1. Rheumatoid arthritis of other site, unspecified whether rheumatoid factor present ([facility]) 2. Onychomycosis 3. Toe pain, bilateral PLAN Discussed proper foot care with patient today. Debride nails in length and thickness digits 1 through 10 Patient can use swzt-sqh-xstjvuu creams daily to feet Nish Cruz DPM documented in this encounter [facility] 08-05-2024 Telephone encounter Note Per appt desk, Patient is scheduled for DBS adjustment on 08/18/2024. February appoint can be scheduled after this visit. Soumya Hugo [facility] 08-05-2024 Miscellaneous Notes Per appt desk, Patient is scheduled for DBS adjustment on 08/18/2024. February appoint can be scheduled after this visit. Soumya Hugo Per office visit on 04/22/2024, patient will be due for DBS adjustment around 02/03/2025. Provider's schedule not released past 12/05/2024 at this time. Recall letter generated for 07/23/2024. Patient requesting we call him to schedule appointment. Patient states he prefers afternoon appts. Soumya Hugo documented in this encounter [facility] 04-22-2024 Telephone encounter Note Per office visit on 04/22/2024, patient will be due for DBS adjustment around 02/03/2025. Provider's schedule not released past 12/05/2024 at this time. Recall letter generated for 07/23/2024. Patient requesting we call him to schedule appointment. Patient states he prefers afternoon appts. Soumya Hugo [facility] 04-22-2024 Instructions Mila Andino APRN.CNP - 04/22/2024 [...] or you can send a message through [employer]. You can also now schedule and select appointments through [employer]. Mila Andino APRN.LAURIE documented in this encounter [facility] 04-22-2024 Note HNO ID: [id number] Author: MILA ANDINO APRN.CNP Service: ? Author [...] improved and h (more content not included)... [facility] 04-22-2024 Procedure note DBS programming: Right [...] his eye started closing but then relaxed. [facility] 04-22-2024 Procedure note DBS programming: [...] but then relaxed. documented in this encounter [facility] 04-22-2024 Note HNO ID: [id number] Author: MILA ANDINO APRN.CNP Service: ? Author Type: Nurse Practitioner Type: Progress Notes Filed: 04/22/2024 18:48 Note Text: [facility] - FOLLOW UP EVALUATION Ny Hoyos DO [address] [place] [address] Dear Ny Hoyos DO: I had the [...] Allergies Unknown Current Outpatient Medications Medication Sig wjzlfav-xtdqvsfcc-bteqkja D3 500 mg-5 mcg (200 unit) per tablet Take 1 tablet by mouth. J0-ldcez-J14I41-hjjvll-oklbhkpbbc (NEURIVA PLUS BRAIN PERFORMANCE) 1.7 mg-400 mcg- [...] (FLONASE) 50 mcg/actuation nasal spray Use 1 [place] in each nostril once daily. docusate sodium [...] is 27.6 kg/m?. Movement Disorders Scales Performed: Yrsr-Ojuwfe-Yyday Tremor Scale Face Tremor At Rest: 0 - None. Tongue Tremor At Rest: Posture Holdin (more content not included)... [facility] 04-22-2024 History of Present illness Narrative [facility] - FOLLOW UP EVALUATION Ny Hoyos DO [address] [place] [address] Dear Ny Hoyos DO: I had the [...] Allergies Unknown Current Outpatient Medications Medication Sig tdyrhtb-xolcwjdpo-cxmiyel D3 500 mg-5 mcg (200 unit) per tablet Take 1 tablet by mouth. H3-pwgfk-R06A13-abefui-wdxhnajzqi (NEURIVA PLUS BRAIN PERFORMANCE) 1.7 mg-400 mcg- [...] (FLONASE) 50 mcg/actuation nasal spray Use 1 [place] in each nostril once daily. docusate sodium [...] 27.6 kg/m . Movement Disorders Scales Performed: Ezpf-Guffgc-Obcxk Tremor Scale Face Tremor At Rest: 0 [...] or around: 02/03/25 Level of service : 18691 (20-29 min). Time spent 20 min on the day of service, which included preparing to see the patient, xvlz-qc-ulrz patient care, completing clinical documentation, obtaining and/or reviewing separately obtained history, performing a medically appropriate examination, and counseling and educating the patient/family/caregiver. This does not include DBS analysis and/or programming time. Mila Andino APRN.CNP documented in this encounter [facility] 04-09-2024 Telephone encounter Note At appointment time, 3p, pt was not checked in. Went to lobby/waiting room and hallway to call for pt. Pt was not in either location. [facility] 04-09-2024 Miscellaneous Notes At appointment time, 3p, pt was not checked in. Went to lobby/waiting room and hallway to call for pt. Pt was not in either location. documented in this encounter [facility] 03-05-2024 Telephone encounter Note I reviewed the labs and these are wnl except his Vit D level is still low. I will have him contacted to follow up with his primary care provider about this and then the labs will be faxed to the primary care provider as well. PHILIP Rouse [facility] 03-05-2024 Miscellaneous Notes I reviewed the labs [...] available in CareEverywhere. documented in this encounter [facility] 03-05-2024 Telephone encounter Note Pt's called to report that he had labs done yesterday at outside facility. Looks like they are available in CareEverywhere. [facility] 03-04-2024 Instructions Mila Andino APRN.CNP - 03/04/2024 [...] or you can send a message through [employer]. You can also now schedule and select appointments through [employer]. Mila Andino APRN.LAURIE documented in this encounter [facility] 03-04-2024 History of Present illness Narrative [facility] - FOLLOW UP EVALUATION Ny Hoyos DO [address] [place] [address] Dear Ny Hoyos DO: I had the [...] (FLONASE) 50 mcg/actuation nasal spray Use 1 [place] in each nostril once daily. docusate sodium (COLACE) 100 mg capsule Take 1 capsule by mouth twice daily as needed for Constipation. E0-ahxvs-D44E66-kyguti-hehbzluyqp (NEURIVA PLUS BRAIN PERFORMANCE) 1.7 mg-400 mcg- [...] 27.82 kg/m . Movement Disorders Scales Performed: [place] Cognitive Assessment (MoCA) Visuospatial/Executive 2 Naming 3 Attention 6 Language 0 Abstraction 1 Delayed Memory 2 Orientation 6 Education < or equal to 12 years (1 is true, 0 is false) 1 MoCA Total Score 21 Fasu-Edsrau-Xlrvn Tremor Scale Voice Tremor Action and Intention: [...] Mila Andino APRN.LAURIE documented in this encounter [facility] 03-04-2024 Note HNO ID: [id number] Author: MILA ANDINO APRN.CNP Service: ? Author [...] is the be (more content not included)... [facility] 03-04-2024 Note HNO ID: [id number] Author: MILA ANDINO APRN.GIS DATABASE ADMINISTRATOR Service: ? Author Type: Nurse Practitioner Type: Progress Notes Filed: 03/05/2024 12:54 Note Text: [facility] - FOLLOW UP EVALUATION Ny Hoyos DO [address] [place] [address] Dear Ny Hoyos DO: I had the [...] (FLONASE) 50 mcg/actuation nasal spray Use 1 [place] in each nostril once daily. docusate sodium (COLACE) 100 mg capsule Take 1 capsule by mouth twice daily as needed for Constipation. P3-cirpl-Y60Q83-nylxkd-tfocvjitwu (NEURIVA PLUS BRAIN PERFORMANCE) 1.7 mg-400 mcg- [...] is 27.82 kg/m?. Movement Disorders Scales Performed: [place] Cognitive Assessment (MoCA) Visuospatial/Executive 2 Naming 3 Attention 6 Language 0 Abstraction 1 Delayed Memory 2 Orientation 6 Education < or equal to 12 years (1 is true, 0 is false) 1 MoCA Total Score 21 Nreb-Yefqtk-Ibpqj Tremor Scale Voice Tremor Action and Intention: [...] RC. He als (more content not included)... [facility] 03-04-2024 Procedure note DBS programming: Right [...] his eye started closing but then relaxed. [facility] 03-04-2024 Procedure note DBS programming: [...] but then relaxed. documented in this encounter [facility] 09-04-2023 Instructions Mila Andino APRN.CNP - 09/04/2023 [...] or you can send a message through [employer]. You can also now schedule and select appointments through [employer]. Mila Andino APRN.LUARIE documented in this encounter [facility] 09-04-2023 Procedure note DBS programmin:43am-10:51am [...] but then relaxed. documented in this encounter [facility] 09-04-2023 History of Present illness Narrative [facility] - FOLLOW UP EVALUATION Ny Hoyos DO [address] [place] [address] Dear Ny Hoyos DO: I had the [...] this with the following steps: -Push the [place] check button and then hold the sas programmer analyst up to your battery. -Using the navigator pad at the bottom of your sas programmer analyst, push the down arrow to put the [...] settings you came in on). -Push the [place] check button and then hold the sas programmer analyst up to your battery. You should now [...] (FLONASE) 50 mcg/actuation nasal spray Use 1 [place] in each nostril once daily. docusate sodium [...] 26.91 kg/m . Movement Disorders Scales Performed: Befz-Wglyhl-Rxtts Tremor Scale Face Tremor At Rest: 2 [...] Mila Andino APRN.LAURIE documented in this encounter [facility] 04-11-2023 Miscellaneous Notes Attempted to reach patient at 12 pm- no answer unable to leave voicemail ; mail box is not set up 2nd attempt at 1:07 pm no answer answer. Jennie Cisneros ----- Message from Mila Andino APRN.GIS DATABASE ADMINISTRATOR sent at 04/11/2023 11:52 AM EDT ----- [...] it. Thanks! Mila documented in this encounter [facility] 04-06-2023 Miscellaneous Notes I spoke with him. [...] don't see anything soon that is available. [phone] documented in this encounter [facility] 04-01-2023 Evaluation note Encounter Date Diagnosis Assessment Notes March, Strain of lumbar region, initial encounter (ICD-10 - S39.012A) Low back pain home care material was printed [facility] Other 04-06-2023 Instructions* Patient Instructions* Mila Andino APRN.CNP - 02/08/2023 1:38 PM EDT It was [...] this with the following steps: -Push the [place] check button and then hold the sas programmer analyst up to your battery. -Using the navigator pad at the bottom of your sas programmer analyst, push the down arrow to put the [...] settings you came in on). -Push the [place] check button and then hold the sas programmer analyst up to your battery. You should now [...] or you can send a message through [employer]. You can also now schedule and select appointments through [employer]. Mila Andino APRN.LAURIE [facility] Procedure note* Mila Andino APRN.CNP - 02/08/2023 [...] closing but then relaxed. documented in this encounterA[facility] History of Present illness Narrative* Mila Andino APRN.CNP - 02/08/2023 12:53 PM EDT [facility] - FOLLOW UP EVALUATION Ny Hoyos DO [address] [place] [address] Dear Ny Hoyos DO: I had the [...] (FLONASE) 50 mcg/actuation nasal spray Use 1 [place] in each nostril once daily. docusate sodium [...] 26.72 kg/m . Movement Disorders Scales Performed: Ekbs-Spillw-Llspw Tremor Scale Voice Tremor Action and Intention: [...] this with the following steps: -Push the [place] check button and then hold the sas programmer analyst up to your battery. -Using the navigator pad at the bottom of your sas programmer analyst, push the down arrow to put the [...] settings you came in on). -Push the [place] check button and then hold the sas programmer analyst up to your battery. You should now [...] lightheadedness, speech changesand gait changes. Mila Andino APRN.CNP documented in this encounter[facility] History of Present illness Narrative* Stacy Jones MD - 11/09/2022 12:52 PM EST At appointment with EW today patient stated he did not want to proceed with injections today since pain is managed. Therefore I did not see him. Will keep February appointments for now and cancel if notneeded. documented in this encounterA[facility] Instructions* Patient Instructions* Mlia Andino APRN.CNP - 11/09/2022 12:31 PM EST [...] or you can send a message through [employer]. You can also now schedule and select appointments through [employer]. Mila Andino APRN.CNP documented in this encounterAden[facility] Procedure note* Mila Andino APRN.[employer] - 11/09/2022 12:23 PM EST DBS programming: [...] closing but then relaxed. documented in this encounterA[facility] History of Present illness Narrative* Mila Andino APRN.LAURIE - 11/09/2022 12:17 PM EST [facility] - FOLLOW UP EVALUATION Ny Hoyos DO [address] [facility] [address] Dear Ny Hoyos DO: I had the [...] (FLONASE) 50 mcg/actuation nasal spray Use 1 [place] in each nostril once daily. docusate sodium [...] 26.72 kg/m . Movement Disorders Scales Performed: Jrnu-Hiyeye-Zwqyb Tremor Scale Voice Tremor Action and Intention: [...] Buspar 10mg 1 1 1 Mila Andino APRN.GIS DATABASE ADMINISTRATOR documented in this encounterAden[facility]12[facility] Evaluation note* Encounter Date Diagnosis Assessment Notes [...] Pt understood and agreed to tx plan. [facility] Other 10-06-2022 History of Present illness Narrative* Stacy Jones MD - 08/10/2022 10:50 AM EDT Images from the original note were not included. [facility] Disorders Neurotoxin Visit Date: August 10, [...] (FLONASE) 50 mcg/actuation nasal spray Use 1 [place] in each nostril once daily. docusate sodium [...] N/A Administered with EMG guidance: Yes Lot#: [id number], [id number] Exp Date: , Today's neurotoxin regimen: Med right midline left Sternocleidomastoid 1500 1500 Splenius capitus 750 750 Semispinalis 1500 1500 Total: 7500 Future plan of care: Follow up: 3 months Neurotoxin change: No Dose change:No Dilution change:No Stacy Jones MD August 10, 2022 12:20 PM Dept of NEUROLOGY TIME OUT/ PROCEDURE NOTE: Informed consent Yordan Marroquin Medical Record: [id number] Procedure: neurotoxin intramuscular injection The risks, benefits [...] -- Stacy Jones MD documented in this encounterAden[facility]06[facility]22 Instructions* Patient Instructions* Mila Andino APRN.[employer] - 05/02/2022 12:28 PM EDT It was [...] or you can send a message through [employer]. You can also now schedule and select appointments through [employer]. Mila Andino APRN.LAURIE documented in this encounterAdena [facility]06-28-2022 Procedure note* Mila Andino APRN.CNP - 05/02/2022 [...] closing but then relaxed. documented in this encounterAdena [facility]06-28-2022 History of Present illness Narrative* Mila Andino APRN.CNP - 05/02/2022 12:03 PM EDT [facility] - FOLLOW UP EVALUATION Ny Hoyos, DO [address] [place] [address] I had the pleasure of seeing Mr. [...] similar foods. May bring head at least fci to meet food. Tremor liquids Moderately abnormal. [...] (FLONASE) 50 mcg/actuation nasal spray Use 1 [place] in each nostril once daily. docusate sodium [...] BMI 26.68 kg/m Movement Disorders Scales Performed: Wfej-Ujvrxb-Egeln Tremor Scale Voice Tremor Action and Intention: [...] Making Level: 4 - Moderate Mila Andino APRN.GIS DATABASE ADMINISTRATOR documented in this encounterAdena [facility]06-[facility] History of Present illness Narrative* Stacy Jones MD - 05/02/2022 11:14 AM EDT Images from the original note were not included. [facility] Neurotoxin Visit Date: May 02, [...] (FLONASE) 50 mcg/actuation nasal spray Use 1 [place] in each nostril once daily. docusate sodium [...] guidance: Yes Injection Site: Cervical dystonia: CPT 89360 Right Left Sternocleidomastoid 1000 1000 Splenius capitus 500 500 Scalene Levator Scapulae Trapezius Semispinalis 1000 1000 Future plan of care: Return in about 3 months (around 08/02/2022) for botulinum toxin. Stacy Jones M.D. Clinical Material Cutter, [facility] Staff, [facility] [place] Department of [facility] Section documented in this encounterAdena [facility]05-20-2022 Miscellaneous Notes* Telephone Encounter - Darlin Johnson [...] Mila Andino CNP. Number to return call [phone] Okay to leave a message ? Yes Last office visit 10/06/21 with Mila Andino CNP & Dr. Jones Next office visit 04/13/22 with Mila Andino CNP Thank you calling [facility] [place]. You will receive a return call within 48hours ( or 2 business days if close to the weekend). If you feel that this is an urgent issue and needs immediate attention, it is recommended that you contact your primary care provider office or proceed to your nearest Urgent Care Center of Emergency Room ED for evaluation/treatment. ' documented in this encounterAdena [facility]03-14-20[facility] Evaluation note* Encounter Date Diagnosis Assessment Notes [...] call if those occur. Looks great today. [facility] Other 02-14-2022 Evaluation note* Encounter Date Diagnosis Assessment Notes Treatment Notes Treatment Clinical Notes Dec, Seasonal allergies (ICD-10 - J30.2) [facility] Other 12-14-2021 Evaluation note* Encounter Date Diagnosis [...] Hyperlipidemia, mixed (ICD-10 - E78.2) will update. [facility] Other 11-07-2021 Evaluation note* Encounter Date Diagnosis [...] Patient care instructions given in writting by [facility] document. [facility] Other Evaluation note* Diagnosis Cervical dystonia- Primary Spasmodic torticollis [facility] Diagnosis Anxiety- Primary Anxiety state, unspecified Essential tremor Essential and other specified forms of tremor S/P deep brain stimulator placement Other postprocedural status [facility]No [facility] Other Evaluation note* Diagnosis Cervical dystonia- Primary Spasmodic torticollis documented in this encounter [facility] note* Diagnosis Essential tremor- Primary Essential and other specified forms of tremor S/P deep brain stimulator placement Other postprocedural status Anxiety Anxiety state, unspecified [facility]* Diagnosis APPOINTMENT CANCELLED- Primary [facility]* Diagnosis Essential tremor- Primary Essential and other specified forms of tremor S/P deep brain stimulator placement Other postprocedural status Anxiety Anxiety state, unspecified [facility]* Diagnosis Anxiety Anxiety state, unspecified documented in this encounter [facility] note* Diagnosis Essential tremor- Primary Essential and other specified forms of tremor Anxiety Anxiety state, unspecified S/P deep brain stimulator placement Other postprocedural status [facility]* Diagnosis Arthritis Unspecified arthropathy, site unspecified Vitamin D deficiency [facility] Diagnosis Essential tremor- Primary Essential and other specified forms of tremor S/P deep brain stimulator placement Other postprocedural status Anxiety Anxiety state, unspecified Abnormality of gait Cognitive impairment Unspecified persistent mental disorders due to conditions classified elsewhere Vitamin D deficiency Unspecified vitamin D deficiency documented in this encounter [facility] note* Diagnosis Essential tremor- Primary Essential and other specified forms of tremor S/P deep brain stimulator placement Other postprocedural status [facility]* Diagnosis Rheumatoid arthritis of other site, unspecified whether rheumatoid factor present ([facility])- Primary Pain due to onychomycosis of toenails of both feet [facility]No assessment information available[facility] Work Phone: Evaluation note* Diagnosis Gastroesophageal reflux disease, unspecified whether esophagitis present [facility]* Diagnosis Preop examination- Primary Preoperative examination, unspecified Essential tremor Essential and other specified forms of tremor History of atrial fibrillation Personal history of other diseases of circulatory system Essential tremor- Primary Essential and other specified forms of tremor Anxiety Anxiety state, unspecified S/P deep brain stimulator placement Other postprocedural status Gait disorder Abnormality of gait [facility] Anxiety- Primary Anxiety state, unspecified Benign prostatic hyperplasia with lower urinary tract symptoms, symptom details unspecified History of atrial fibrillation Personal history of other diseases of circulatory system Hypercholesteremia (CMS/HCC) Pure hypercholesterolemia Essential tremor Allergic rhinitis due to pollen, unspecified seasonality Rheumatoid arthritis, involving unspecified site, unspecified whether rheumatoid factor present ([facility]) Routine general medical examination at health care facility- Primary Routine general medical examination at a health care facility [place] Need for hepatitis C screening test Special screening examination for other specified viral diseases Medicare annual wellness visit, initial Encounter for vitamin deficiency screening Essential tremor S/P deep brain stimulator placement Allergic rhinitis due to pollen, unspecified seasonality Chest pain, unspecified type- Primary Allergic rhinitis due to pollen, unspecified seasonality Essential tremor- Primary Abnormality of gait documented in [facility]* Diagnosis Anxiety- Primary Anxiety state, unspecified Benign prostatic hyperplasia with lower urinary tract symptoms, symptom details unspecified History of atrial fibrillation Personal history of other diseases of circulatory system Hypercholesteremia (CMS/HCC) Pure hypercholesterolemia Essential tremor Allergic rhinitis due to pollen, unspecified seasonality Rheumatoid arthritis, involving unspecified site, unspecified whether rheumatoid factor present ([facility]) Routine general medical examination at health care facility- Primary Routine general medical examination at a health care facility [place] Need for hepatitis C screening test Special screening examination for other specified viral diseases Medicare annual wellness visit, initial Encounter for vitamin deficiency screening Essential tremor S/P deep brain stimulator placement Allergic rhinitis due to pollen, unspecified seasonality Chest pain, unspecified type- Primary Allergic rhinitis due to pollen, unspecified seasonality Essential tremor- Primary Abnormality of gait Poor balance documented in this encounter [facility]* Diagnosis Anxiety- Primary Anxiety state, unspecified Benign prostatic hyperplasia with lower urinary tract symptoms, symptom details unspecified History of atrial fibrillation Personal history of other diseases of circulatory system Hypercholesteremia (CMS/HCC) Pure hypercholesterolemia Essential tremor Allergic rhinitis due to pollen, unspecified seasonality Rheumatoid arthritis, involving unspecified site, unspecified whether rheumatoid factor present ([facility]) Routine general medical examination at health care facility- Primary Routine general medical examination at a health care facility [place] Need for hepatitis C screening test Special screening examination for other specified viral diseases Medicare annual wellness visit, initial Encounter for vitamin deficiency screening Essential tremor S/P deep brain stimulator placement Allergic rhinitis due to pollen, unspecified seasonality Chest pain, unspecified type- Primary Allergic rhinitis due to pollen, unspecified seasonality Essential tremor- Primary Abnormality of gait Poor balance [facility]* Diagnosis Anxiety- Primary Anxiety state, unspecified Benign prostatic hyperplasia with lower urinary tract symptoms, symptom details unspecified History of atrial fibrillation Personal history of other diseases of circulatory system Hypercholesteremia ([facility]) Pure hypercholesterolemia Essential tremor Allergic rhinitis due to pollen, unspecified seasonality Rheumatoid arthritis, involving unspecified site, unspecified whether rheumatoid factor present ([facility]) Routine general medical examination at health care facility- Primary Routine general medical examination at a health care facility [place] Need for hepatitis C screening test Special screening examination for other specified viral diseases Medicare annual wellness visit, initial Encounter for vitamin deficiency screening Essential tremor S/P deep brain stimulator placement Allergic rhinitis due to pollen, unspecified seasonality Chest pain, unspecified type- Primary Allergic rhinitis due to pollen, unspecified seasonality Essential tremor- Primary Abnormality of gait Poor balance [facility]* Diagnosis Anxiety- Primary Anxiety state, unspecified Benign prostatic hyperplasia with lower urinary tract symptoms, symptom details unspecified History of atrial fibrillation Personal history of other diseases of circulatory system Hypercholesteremia ([facility]) Pure hypercholesterolemia Essential tremor Allergic rhinitis due to pollen, unspecified seasonality Rheumatoid arthritis, involving unspecified site, unspecified whether rheumatoid factor present ([facility]) Routine general medical examination at health care facility- Primary Routine general medical examination at a health care facility [place] Need for hepatitis C screening test Special screening examination for other specified viral diseases Medicare annual wellness visit, initial Encounter for vitamin deficiency screening Essential tremor S/P deep brain stimulator placement Allergic rhinitis due to pollen, unspecified seasonality Chest pain, unspecified type- Primary Allergic rhinitis due to pollen, unspecified seasonality Essential tremor- Primary Abnormality of gait [facility]* Diagnosis Anxiety- Primary Anxiety state, unspecified Benign prostatic hyperplasia with lower urinary tract symptoms, symptom details unspecified History of atrial fibrillation Personal history of other diseases of circulatory system Hypercholesteremia ([facility]) Pure hypercholesterolemia Essential tremor Allergic rhinitis due to pollen, unspecified seasonality Rheumatoid arthritis, involving unspecified site, unspecified whether rheumatoid factor present ([facility]) Routine general medical examination at health care facility- Primary Routine general medical examination at a [facility] [place] Need for hepatitis C screening test Special screening examination for other specified viral diseases Medicare annual wellness visit, initial Encounter for vitamin deficiency screening Essential tremor S/P deep brain stimulator placement Allergic rhinitis due to pollen, unspecified seasonality Chest pain, unspecified type- Primary Allergic rhinitis due to pollen, unspecified seasonality Essential tremor- Primary Abnormality of gait Poor balance [facility]* Diagnosis Anxiety- Primary Anxiety state, unspecified Benign prostatic hyperplasia with lower urinary tract symptoms, symptom details unspecified History of atrial fibrillation Personal history of other diseases of circulatory system Hypercholesteremia ([facility]) Pure hypercholesterolemia Essential tremor Allergic rhinitis due to pollen, unspecified seasonality Rheumatoid arthritis, involving unspecified site, unspecified whether rheumatoid factor present ([facility]) Routine general medical examination at health care facility- Primary Routine general medical examination at a [facility] [place] Need for hepatitis C screening test Special screening examination for other specified viral diseases Medicare annual wellness visit, initial Encounter for vitamin deficiency screening Essential tremor S/P deep brain stimulator placement Allergic rhinitis due to pollen, unspecified seasonality Chest pain, unspecified type- Primary Allergic rhinitis due to pollen, unspecified seasonality Essential tremor- Primary Abnormality of gait Poor balance [facility]* Diagnosis Anxiety- Primary Anxiety state, unspecified Benign prostatic hyperplasia with lower urinary tract symptoms, symptom details unspecified History of atrial fibrillation Personal history of other diseases of circulatory system Hypercholesteremia ([facility]) Pure hypercholesterolemia Essential tremor Allergic rhinitis due to pollen, unspecified seasonality Rheumatoid arthritis, involving unspecified site, unspecified whether rheumatoid factor present ([facility]) Routine general medical examination at health care facility- Primary Routine general medical examination at a [facility] facility [place] Need for hepatitis C screening test Special screening examination for other specified viral diseases Medicare annual wellness visit, initial Encounter for vitamin deficiency screening Essential tremor S/P deep brain stimulator placement Allergic rhinitis due to pollen, unspecified seasonality Chest pain, unspecified type- Primary Allergic rhinitis due to pollen, unspecified seasonality Essential tremor- Primary documented [facility]* Diagnosis Anxiety- Primary Anxiety state, unspecified Benign prostatic hyperplasia with lower urinary tract symptoms, symptom details unspecified History of atrial fibrillation Personal history of other diseases of circulatory system Hypercholesteremia (CMS/HCC) Pure hypercholesterolemia Essential tremor Allergic rhinitis due to pollen, unspecified seasonality Rheumatoid arthritis, involving unspecified site, unspecified whether rheumatoid factor present (CMS/HCC) Routine general medical examination at health care facility- Primary Routine general medical examination at a health care facility [place] Need for hepatitis C screening test Special screening examination for other specified viral diseases Medicare annual wellness visit, initial Encounter for vitamin deficiency screening Essential tremor S/P deep brain stimulator placement Allergic rhinitis due to pollen, unspecified seasonality Chest pain, unspecified type- Primary Allergic rhinitis due to pollen, unspecified seasonality Essential tremor- Primary Essential tremor- Primary Abnormality of gait Poor balance [facility] N[facility]ative - Reported* Type Description Date Medical History tremors Medical History Atrial fibrillation Surgical History DBS - Deep brain stimulator 201 0 Surgical History R knee replacement Surgical History L elbow - pinched nerve Surgical History cardiac ablation Hospitalization History see above [facility] Other History general Narrative - Reported* Type Description Date Medical History tremors Medical History Atrial fibrillation Medical History GERD Surgical History DBS - Deep brain stimulator 201 0 Surgical History R knee replacement Surgical History L elbow - pinched nerve Surgical History cardiac ablation Hospitalization History see above [facility] Other InstructionsNot on filedocumented in this encounter [facility] SystemInstructionsNot on filedocumented in this encounter [facility] SystemReason [facility] Narrative* Rehabilitation - Outpatient (Routine) - Authorized Specialty Diagnoses / Procedures Referred By Ofelia t Referred To Contact Physical Therapy Diagnoses Essential tremor Unspecified abnormalities of gait and mobility Procedures [place] PHYSICAL THERAPY EVALUATION LOW COMPLEX 20 MINS Mila Andino, ASYA [address] [place] [address] Phone: tel: fax: Svetlana Carrera PT Referral ID Status Reason Start Date Expiration Date V haydents Requested Visits Authorized [id number] Authorized 09/01/2024 02/28/2025 20 20 [facility] Summary Purpose Family History Relationship Condition Age at Onset Recorded Date/T lexis father Unknown mother Leukemia Unknown Unknown Malignant neoplasm Unknown Advance Directives Documents on File Type Date Recorded 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 Advance Directive(s) 11/29/2021 2:19 PM Advance Directive(s) 12/06/2017 1:47 PM Advance Directive Response Recorded Date/ Time Advance Directives No August 09, 2024 9:58am Medications Administered Section Inactive Administered Medications - [...] 2,500 Units, INTRAMUSCULAR, ONCE, 1 dose, On Sun08/10/22 [...] By Ofelia iraheta Referred To Contact Diagnoses Anxiety Essential tremor S/P deep brain stimulator placement Procedures PROVIDER ORDERED FOLLOW UP OFFICE/OUTPATIENT NEW [facility] MDM 60 MINUTES Mila Andino, CLINICAL COUNSELOR.GIS DATABASE ADMINISTRATOR [address] [place] [id number] Referral ID Status Reason Start Date Expiration Date Visits Requested Visits Authorized [id number] Authorized PCP Requested Referral 02/16/2025 08/18/2025 1 1 Specialty Diagnoses / Procedures Referred By Ofelia iraheta Referred To Contact [facility] Diagnoses Essential tremor Gait disorder Procedures CONSULT TO PHYSICAL THERAPY PHYSICAL THERAPY EVALUATION HIGH COMPLEX 45 MINS Mila Andino, CLINICAL COUNSELOR.GIS DATABASE ADMINISTRATOR [address] [place] [address] [facility] [place] [address] [place] [id number] Referral ID Status Reason Start Date Expiration Date Visits Requested Visits Authorized [id number] Authorized PCP Requested Referral Auto-Generate d Referral 08/18/2025 99 99 Specialty Diagnoses / Procedures Referred By Contac t Referred To Contact Diagnoses Essential tremor S/P deep brain stimulator placement Procedures PROVIDER ORDERED FOLLOW UP OFFICE/OUTPATIENT NEW HIGH MDM 60 MINUTES Mila Andino, CLINICAL COUNSELOR.GIS DATABASE ADMINISTRATOR [address] [place] [address] Referral ID Status Reason Start Date Expiration Date Visits Requested Visits Authorized [id number] Authorized PCP Requested Referral 02/03/2025 04/22/2025 1 1 Specialty Diagnoses / Procedures Referred By Contac t Referred To Contact [facility] Diagnoses Essential tremor Abnormality of gait Procedures CONSULT TO PHYSICAL THERAPY PHYSICAL THERAPY EVALUATION HIGH COMPLEX 45 MINS Mila Andino, CLINICAL COUNSELOR.GIS DATABASE ADMINISTRATOR [address] [place] [address] [facility] [address] [place] [address] Referral ID Status Reason Start Date Expiration Date Visits Requested Visits Authorized [id number] Authorized PCP Requested Referral Auto-Generate d Referral 03/04/2024 03/04/2025 99 99 Chief Complaint and Reason for Visit Chief Complaint Sinus congestion, co ugh Additional Source Comments (unrecognized sect ion and content) No Status Records FoundNo Status Records FoundNo Status Records FoundNo Status Records FoundNo Status Records FoundNo Status Records FoundNo Status Records Found INFORMATION SOURCE (unrecogn ized section and content) DATE CREATED AUTHOR 05/01/2018 [facility] DATE CREATED AUTHOR AUTHOR'S ORGANIZ ATION 09/22/2018 [facility] DATE CREATED AUTHOR AUTHOR'S ORGANIZ ATION 07/03/2019 [facility] DATE CREATED AUTHOR AUTHOR'S ORGANIZ ATION 06/14/2020 [facility] DATE CREATED AUTHOR AUTHOR'S ORGANIZ ATION 2022 [facility] DATE CREATED AUTHOR AUTHOR'S ORGANIZ ATION 10/02/2024 [facility] DATE CREATED AUTHOR AUTHOR'S ORGANIZ ATION 10/06/2024 [facility] EPIC Source Comments (unrecognize d section and content) In the event this informatio n is protected by the Federal Confidentiality of Alcohol and Drug Abuse Patient Records regulations: The Federal rules restrict any use of the information to criminally investigate or prosecute any alcohol or drug abuse patient.[facility] Center[facility] the event this information is protected by the Federal Confidentiality of Alcohol and Drug Abuse Patient Records regulations: The Federal rules restrict any use of the information to criminally investigate or prosecute any alcohol or drug abuse patient.[facility] CenterIn the event this information is protected by the Federal Confidentiality of Alcohol and Drug Abuse Patient Records regulations: The Federal rules restrict any use of the information to criminally investigate or prosecute any alcohol or drug abuse patient.[facility] CenterIn the event this information is protected by the Federal Confidentiality of Alcohol and Drug Abuse Patient Records regulations: The Federal rules restrict any use of the information to criminally investigate or prosecute any alcohol or drug abuse patient.[facility] CenterIn the event this information is protected by the Federal Confidentiality of Alcohol and Drug Abuse Patient Records regulations: The Federal rules restrict any use of the information to criminally investigate or prosecute any alcohol or drug abuse patient.[facility] CenterIn the event this information is protected by the Federal Confidentiality of Alcohol and Drug Abuse Patient Records regulations: The Federal rules restrict any use of the information to criminally investigate or prosecute any alcohol or drug abuse patient.[facility] CenterIn the event this information is protected by the Federal Confidentiality of Alcohol and Drug Abuse Patient Records regulations: The Federal rules restrict any use of the information to criminally investigate or prosecute any alcohol or drug abuse patient.[facility] CenterIn the event this information is protected by the Federal Confidentiality of Alcohol and Drug Abuse Patient Records regulations: The Federal rules restrict any use of the information to criminally investigate or prosecute any alcohol or drug abuse patient.[facility] CenterIn the event this information is protected by the Federal Confidentiality of Alcohol and Drug Abuse Patient Records regulations: The Federal rules restrict any use of the information to criminally investigate or prosecute any alcohol or drug abuse patient.[facility] CenterIn the event this information is protected by the Federal Confidentiality of Alcohol and Drug Abuse Patient Records regulations: The Federal rules restrict any use of the information to criminally investigate or prosecute any alcohol or drug abuse patient.[facility] CenterIn the event this information is protected by the Federal Confidentiality of Alcohol and Drug Abuse Patient Records regulations: The Federal rules restrict any use of the information to criminally investigate or prosecute any alcohol or drug abuse patient.[facility] CenterIn the event this information is protected by the Federal Confidentiality of Alcohol and Drug Abuse Patient Records regulations: The Federal rules restrict any use of the information to criminally investigate or prosecute any alcohol or drug abuse patient.[facility] CenterIn the event this information is protected by the Federal Confidentiality of Alcohol and Drug Abuse Patient Records regulations: The Federal rules restrict any use of the information to criminally investigate or prosecute any alcohol or drug abuse patient.[facility] CenterIn the event this information is protected by the Federal Confidentiality of Alcohol and Drug Abuse Patient Records regulations: The Federal rules restrict any use of the information to criminally investigate or prosecute any alcohol or drug abuse patient.[facility] CenterIn the event this information is protected by the Federal Confidentiality of Alcohol and Drug Abuse Patient Records regulations: The Federal rules restrict any use of the information to criminally investigate or prosecute any alcohol or drug abuse patient.[facility] CenterIn the event this information is protected by the Federal Confidentiality of Alcohol and Drug Abuse Patient Records regulations: The Federal rules restrict any use of the information to criminally investigate or prosecute any alcohol or drug abuse patient.[facility] the event this information is protected by the Federal Confidentiality of Alcohol and Drug Abuse Patient Records regulations: The Federal rules restrict any use of the information to criminally investigate or prosecute any alcohol or drug abuse patient.[facility] Center[facility] the event this information is protected by the Federal Confidentiality of Alcohol and Drug Abuse Patient Records regulations: The Federal rules restrict any use of the information to criminally investigate or prosecute any alcohol or drug abuse patient.[facility] Center[facility] the event this information is protected by the Federal Confidentiality of Alcohol and Drug Abuse Patient Records regulations: The Federal rules restrict any use of the information to criminally investigate or prosecute any alcohol or drug abuse patient.[facility] Reason for Visit (unrecogniz ed section and content) Reason Comments Patient Request Reason Comments Neurotoxin Injection Reason Comments Essential tremor Reason Comments Symptom Management Reason Comments Appointment Reason Comments Med Refill Reason Comments Essential tremor Follow Up Reason Comments Results Labs Reason Comments Essential tremor Follow Up Reason Comments Toenail Care Non dm nail care Reason Comments Essential tremor Reason Comments Return Call Requested [facility] PT regarding DBS Reason Comments Question Reason Comments wanting XR Reason Onset Date Comments Cx out PT 10/07/2024 Care Teams (unrecognized sec tion and content) [employer] Superintendent Relationship Specialty Start Date End Date Ny Hoyos, DO [address] [place] [address] PCP - General Family Practice 10/06/21 [employer] Superintendent Relationship Specialty Start Date End Date Ny Hoyos, DO [address] [place] [address] PCP - General Family Practice 10/06/21 Oil And [employer] Superintendent Relationship Specialty Start Date End Date Ny Hoyos, DO [address] [place] [address] PCP - General Family Practice 10/06/21 Oil And [employer] Superintendent Relationship Specialty Start Date End Date Ny Hoyos, DO [address] [place] [address] PCP - General Family Medicine 10/06/21 Oil And 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 Superintendent Relationship Specialty Start Date End Date Ny Hoyos, DO [address] [place] [address] PCP - General Family Medicine 10/06/21 Oil And 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 Superintendent Relationship Specialty Start Date End Date Ny Hoyos, DO [address] [place] [address] PCP - General Family Medicine 10/06/21 [employer] And [employer] Superintendent Relationship Specialty Start Date End Date Ny Hoyos, DO [address] [place] [address] PCP - General Family Medicine 10/06/21 Oil And [employer] Superintendent Relationship Specialty Start Date End Date Ny Hoyos, DO [address] [facility] [place] [address] PCP - General Family Medicine 10/06/21 [employer] Superintendent Relationship Specialty Start Date End Date Ny Hoyos, DO [address] [facility] [place] [address] PCP - General Family Medicine 10/06/21 Oil And [employer] Superintendent Relationship Specialty Start Date End Date Ny Hoyos DO [address] [facility] [place] [address] PCP - General Family Medicine 10/06/21 Oil And [employer] Superintendent Relationship Specialty Start Date End Date Jun Carrasco MD [address] [facility] [place] [address] PCP - General Internal Medicine 03/23/23 [facility] Nurse - [facility] 06/14/23 [employer] Superintendent Relationship Specialty Start Date End Date Ny Hoyos DO [address] [facility] [place] [address] PCP - General Family Medicine 10/06/21 [employer] Superintendent Relationship Specialty Start Date End Date Ny Hoyos DO [address] [facility] [place] [address] PCP - General Family Medicine 10/06/21 [employer] Superintendent Relationship Specialty Start Date End Date Ny Hoyos DO [address] [place] [address] PCP - [facility] Medicine 10/06/21 [employer] And [employer] Superintendent Relationship Specialty Start Date End Date Ny Hoyos [address] [place] [address] PCP - [facility] Medicine 10/06/21 [employer] Superintendent Relationship Specialty Start Date End Date Marine Hoyoslin Trang DO [address] [place] [address] PCP - [facility] 10/06/21 [employer] Superintendent Relationship Specialty Start Date End Date Rasheed Lucas MD [address] [facility] [address] [place] [address] PCP - [facility] Medicine 01/31/24 [employer] Superintendent Relationship Specialty Start Date End Date Rasheed Lucas MD [address] [address] PCP - [facility] Medicine 01/31/24 Team Status: Active Member Role Status Dates Shayla Mirza APRN [employer] Primary Care Provider Act mónica Team Status: Active Member Role Status Dates Shayla Mirza APRN [employer] Primary Care Provider Act mónica Start: June 08, 2024 Josef Berry DO Attending Provider Active Sta rt: June 08, 2024 Team Status: Inactive Member Role Status Dates Shayla Mirza APRN [employer] Primary Care Provider Act mónica Start: August 09, 2024 End: August 09, 2024 Clair Echols APRN Attending Provider Active Start: August 09, 2024 End: August 09, 2024 [employer] Superintendent Relationship Specialty Start Date End Date Jun Carrasco MD [address] [facility] [place] [address] PCP - General Internal Medicine 03/23/23 [facility] Nurse [facility] 06/14/23 [employer] And [employer] Superintendent Relationship Specialty Start Date End Date Rasheed Lucas MD [address] [place] [address] [place] [address] PCP - General Family Medicine 01/31/24 [employer] Superintendent Relationship Specialty Start Date End Date Rasheed Lucas MD [address] [place] [address] PCP - General Family Medicine 01/31/24 [employer] Superintendent Relationship Specialty Start Date End Date Ny Hoyos DO [address] [facility] [address] PCP - General Family Medicine 10/06/21 [employer] And Gas Superintendent Relationship Specialty Start Date End Date Rasheed Lucas MD [address] [place] [address] [place] [address] PCP - General Family Medicine 01/31/24 [employer] And [employer] Superintendent Relationship Specialty Start Date End Date Rasheed Lucas MD [address] [place] [address] PCP - General Family Medicine 01/31/24 [employer] And Gas Superintendent Relationship Specialty Start Date End Date Rasheed Lucas MD [address] [place] [address] [place] [address] PCP - General Family Medicine 01/31/24 [employer] And Gas Superintendent Relationship Specialty Start Date End Date Rasheed Lucas MD [address] [place] [address] [place] [address] PCP - General Family Medicine 01/31/24 [employer] And Gas Superintendent Relationship Specialty Start Date End Date Rasheed Lucas MD [address] [place] [address] PCP - General Family Medicine 01/31/24 [employer] And Gas Superintendent Relationship Specialty Start Date End Date Rasheed Lucas MD [address] [place] [address] PCP - General Family Medicine 01/31/24 [employer] And [employer] Superintendent Relationship Specialty Start Date End Date Ny Hoyos DO [address] [facility] [place] [address] PCP - General Family Medicine 10/06/21 [employer] And Gas Superintendent Relationship Specialty Start Date End Date Ny Hoyos DO [address] [place] [address] PCP - General Family Medicine 10/06/21 [employer] And [employer] Superintendent Relationship Specialty Start Date End Date Rasheed Lucas MD [address] [place] [address] [place] [address] PCP - General Family Medicine 01/31/24 [employer] And Gas Superintendent Relationship Specialty Start Date End Date Rasheed Lucas MD [address] [place] [address] PCP - General Family Medicine 01/31/24 [employer] And Gas Superintendent Relationship Specialty Start Date End Date Rasheed Lucas MD [address] [place] [address] PCP - General Family Medicine 01/31/24 Oil And 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 [employer] provides no warranty or guarantee of the accuracy or completeness of information in this document.
--- NOTE | 2024-10-19 11:27 | CT_ITS ---
[address] [address] Patient Name: YORDAN KELLY MRN: [id number] date: 1945 Sex: M Assigned Patient Location: ER Current Patient Location: Accession/Order Number: [id number] Exam Date: 10/19/2024 11:35 Report Date: 10/19/2024 12:04 At the request of: TREVIN PADILLA Procedure: CT abdomen pelvis wo con EXAMINATION: CT abdomen pelvis wo con HISTORY: flank pain COMPARISON: No relevant comparison available. TECHNIQUE: Axial, Coronal, and Sagittal images were created without IV contrast. Dose reduction techniques were achieved by using automated exposure control and/or adjustment of mA and/or kV according to patient size and/or use of iterative reconstruction technique. FINDINGS: LUNG BASES: No visible pulmonary or pleural disease. LIVER: No enlargement, atrophy, abnormal density, or significant focal lesion. BILIARY: Liver density of the gallbladder with no secondary signs of acute cholecystitis PANCREAS: Diffuse fatty atrophy SPLEEN: No enlargement or focal lesion. ADRENALS: No mass or enlargement. KIDNEYS: No mass, obstruction, or calcification. BOWEL/MESENTERY: Moderate colonic diverticulosis without evidence of acute diverticulitis. Nonobstructive bowel gas pattern. Normal appendix. AORTA/VASCULAR: No aortic aneurysm. Moderate calcific atherosclerosis RETROPERITONEUM: No mass or adenopathy. LYMPH NODES: No adenopathy. URINARY BLADDER: No visible focal wall thickening, lesion, or calculus. PELVIC ORGANS: No visible mass. Pelvic organs appropriate for patient age. ABDOMINAL WALL: No mass or hernia. BONES: No bony lesion or fracture. OTHER: Negative. CT/CT abdomen pelvis wo con IMPRESSION: No obstructive uropathy Electronically authenticated by: ABDIRAHMAN JACKSON Date: 10/19/2024 12:04
[2024-10-19 11:35] LABS: Hematocrit 49.2 % (42.0-54.0); Hemoglobin 16.5 g/dL (14.0-18.0); Mean Corpuscular HGB Conc 33.5 g/dL (29.9-35.2); Mean Corpuscular Hemoglobin 31.6 pg (25.9-34.0); Mean Corpuscular Volume 94.3 fL (80.0-94.0); Mean Platelet Volume 10.3 fL (9.5-13.5); Platelet Count 318 10^3/uL (150-450); Red Blood Count 5.22 10^6/uL (4.70-6.10); Red Cell Distribution Width 13.2 % (11.0-15.0); White Blood Count 9.5 10^3/uL (4.0-11.0)
[2024-10-19 11:51] LABS: Band Neutrophils Absolute 0.1 10^3/uL (0.0-0.3); Basophils Abs Manual 0.09 10^3/uL (0.00-0.10); Eosinophils Absolute Manual 0.09 10^3/uL (0.00-0.70); Lymphocytes Absolute Manual 0.57 10^3/uL (1.20-3.80); Monocytes Absolute Manual 0.66 10^3/uL (0.30-0.80); Segmented Neut Absolute Manual 7.98 10^3/uL (1.4-6.5)
[2024-10-19] MEDS: KETOROLAC TROMETHAMINE 30 MG/ML VIAL 15 MG IVP (11:51)
[2024-10-19 11:52] LABS: Alanine Aminotransferase 21 U/L (16-63); Albumin Globulin Ratio 0.8; Albumin Level 3.2 g/dL (3.4-5.0); Alkaline Phosphatase 56 U/L (46-116); Anion Gap 14.1; Aspartate Amino Transferase 17 U/L (15-37); Calcium 8.5 mg/dL (8.5-10.1); Carbon Dioxide 27.4 mmol/L (21.0-32.0); Chloride 106 mmol/L (98-107); Estimated GFR (African America >60 (>=60 mL/min/1.73m^2); Estimated GFR (Non-African Ame >60 (>=60 mL/min/1.73m^2); Globulin 4.1 g/dL; Glucose 106 mg/dL (74-106); Potassium 4.5 mmol/L (3.5-5.1); Sodium 143 mmol/L (136-145); Total Protein 7.3 g/dL (6.4-8.2)
[2024-10-19] MEDS: DIAZEPAM 10 MG/2 ML SYRINGE 5 MG IV ×2 (11:52→13:27)
[2024-10-19] MEDS: ONDANSETRON PF 4 MG/2 ML VIAL IV (11:55)
--- NOTE | 2024-10-19 13:17 | ED.GENADUL1 ---
HPI HPI - General Adult General Chief complaint: Back Pain/Injury Stated complaint: BACK PAIN, VOIMITING, DIARRHEA Time Seen by Provider: 10/19/24 11:15 Source: patient Mode of arrival: ambulance History of Present Illness HPI narrative: 78-year-old male to the emergency department with chief complaint of back pain. Patient reports he has a spasm-like pain located in his bilateral flanks. He reports he had a similar pain in the past with kidney stones. He is concerned he may have a kidney stone. He denies any blood in the urine, dysuria, urgency, frequency. He also reports that he gets muscle spasms which are treated with clonidine from his PCP. He has not taken this today. He denies any numbness, tingling. Incontinence or retention. He denies any fever, sweats, chills. He reports he did vomit 1 time today when the pain was severe. Related Data Home Medications ?Medication ?Instructions ?Recorded ?Confirmed aspirin 81 mg capsule 81 mg PO DAILY 06/07/24 06/07/24 buspirone 10 mg tablet 10 mg PO TID 06/07/24 06/07/24 omeprazole 20 mg capsule,delayed 20 mg PO DAILY 06/07/24 06/07/24 release Previous Rx's ?Medication ?Instructions ?Recorded diazepam 5 mg tablet (Valium) 5 mg PO TID PRN muscle spasm 3 10/19/24 days #9 tabs Allergies Allergy/AdvReac Type Severity Reaction Status Date / Time Penicillins AdvReac Severe Hives Verified 06/07/24 15:19 Opioid HPI Opioid Management Most Recent Opioid Data: Last Pain Scale 8 10/19/24 11:51 10/19/24 Last MAR Pain Assessment 10/19/24 11:51 Review of Systems ROS Status of ROS 10 or more systems reviewed and unremarkable except as noted in history and below Exam Narrative Exam Narrative: VITALS: I have reviewed the triage vital signs. GENERAL: Morbidly obese adult male with tremor NEURO: Alert and oriented. Moves all extremities. Face is symmetric and expressive. Patellar reflexes brisk and equal bilaterally. Normal gait. Plantar flexion/dorsiflexion, knee flexion/extension, hip flexion/extension are grossly intact with 5/5 strength. Sensation is intact across the bilateral lower extremities. SPINE: No midline cervical, thoracic, or lumbar tenderness. No step-off or deformities. No paraspinal muscle tenderness or increased tone. EYES: PERRL. No scleral icterus or conjunctival injection. No discharge. HENT: Normocephalic, atraumatic. Hearing is grossly intact. Nares grossly patent and without discharge. Mucous membranes moist. NECK: No JVD. Patient moves neck without restriction. CARDIO: Rhythm regular. Normal rate. No murmur, rub, or gallop. Pulses equal bilaterally in the upper and lower extremity. No lower extremity edema. PULM: Lungs clear to auscultation in all prasad. No wheezes, rales, or rhonchi. No conversational dyspnea. No splinting, stridor, or accessory muscle use. GI/: Abdomen is soft and non-tender. Normoactive bowel sounds. Mild flank tenderness. EXTREMITIES: Symmetric muscle bulk. No joint swelling. No clubbing, cyanosis, or deformity. SKIN: Warm and dry. Normal turgor. No rash or lesions appreciated. PSYCH: Mood, affect, and interaction is appropriate to the setting. Constitutional Vital Signs, click to edit/add: Last Vital Signs Temp 98.4 F 10/19/24 10:45 Pulse 99 H 10/19/24 13:10 Resp 17 10/19/24 13:10 BP 131/86 10/19/24 13:01 Pulse Ox 94 L 10/19/24 13:10 O2 Del Method Room Air 10/19/24 10:45 Course Vital Signs Vital signs: Vital Signs Blood Pressure 132/95 H 10/19/24 10:41 Temperature 98.4 F 10/19/24 10:45 Pulse Rate 99 H 10/19/24 13:10 Respiratory Rate 17 10/19/24 13:10 Blood Pressure 131/86 10/19/24 13:01 Pulse Oximetry 94 L 10/19/24 13:10 Oxygen Delivery Method Room Air 10/19/24 10:45 Medical Decision Making [facility] Narrative Medical decision making narrative: 78-year-old male to the emergency department with chief complaint of pain. Concerned he has a kidney stone. Reports 1 episode of vomiting today. He is otherwise well-appearing. No signs or symptoms of cord compressing lesion. No falls or injuries. Will obtain imaging of his abdomen pelvis to evaluate for kidney stone. Basic labs ordered. Urinalysis. Suspect muscle spasm based on his description of the pain however. CT scan without acute findings. Lab work is unremarkable. He did have some relief of symptoms although he continues to have some mild spasm. Valium dose was increased. Patient feels much improved. He feels comfortable plan for discharge home. He believes the Valium worked better than his for his spasms and tremor. Will give a short course of Valium for him to take instead of the Klonopin. He has an appoint with his doctor tomorrow. He will discuss further at that time. Return precautions were discussed. All questions were answered. The patient was discharged home. Medical Records Medical records reviewed: Yes I reviewed the patient's medical records Lab Data Lab results reviewed: Yes I reviewed the patient's lab results Labs: Lab Results 10/19/24 10/19/24 Range/Units 10:50 13:22 WBC 9.5 (4.0-11.0) 10^3/uL RBC 5.22 (4.70-6.10) 10^6/uL Hgb 16.5 (14.0-18.0) g/dL Hct 49.2 (42.0-54.0) % MCV 94.3 H (80.0-94.0) fL MCH 31.6 (25.9-34.0) pg MCHC 33.5 (29.9-35.2) g/dL RDW 13.2 (11.0-15.0) % Plt Count 318 (150-450) 10^3/uL MPV 10.3 (9.5-13.5) fL Seg Neuts % (Manual) 84.0 H (43.0-75.0) Band Neutrophils % 1.0 (0-5) % Lymphocytes % (Manual) 6.0 L (20.5-60.0) % Monocytes % (Manual) 7.0 (1.7-12.0) % Eosinophils % (Manual) 1.0 (0.9-7.0) % Basophils % (Manual) 1.0 (0.2-2.0) % Neutrophils # (Manual) 7.98 H (1.4-6.5) 10^3/uL Band Neutrophils # 0.1 (0.0-0.3) 10^3/uL Lymphocytes # (Manual) 0.57 L (1.20-3.80) 10^3/uL Monocytes # (Manual) 0.66 (0.30-0.80) 10^3/uL Eosinophils # (Manual) 0.09 (0.00-0.70) 10^3/uL Basophils # (Manual) 0.09 (0.00-0.10) 10^3/uL Sodium 143 (136-145) mmol/L Potassium 4.5 (3.5-5.1) mmol/L Chloride 106 (98-107) mmol/L Carbon Dioxide 27.4 (21.0-32.0) mmol/L Anion Gap 14.1 BUN 18.0 (7.0-18.0) mg/dL Creatinine 1.06 (0.70-1.30) mg/dL Est GFR ( Amer) >60 (>=60 mL/min/1.73m^2) Est GFR (Non-Af Amer) >60 (>=60 mL/min/1.73m^2) BUN/Creatinine Ratio 17.0 Glucose 106 (74-106) mg/dL Calcium 8.5 (8.5-10.1) mg/dL Total Bilirubin 1.0 (0.2-1.0) mg/dL AST 17 (15-37) U/L ALT 21 (16-63) U/L Alkaline Phosphatase 56 (46-116) U/L Total Protein 7.3 (6.4-8.2) g/dL Albumin 3.2 L (3.4-5.0) g/dL Globulin 4.1 g/dL Albumin/Globulin Ratio 0.8 Lipase 19.0 (16.0-77.0) U/L Urine Color Yellow (YELLOW) Urine Clarity Clear (CLEAR) Urine pH 5.5 (5.0-9.0) Ur Specific [place] >=1.030 A (1.005-1.025) Urine Protein Trace (NEG/TRACE) mg/dL Urine Glucose (UA) Negative (NEGATIVE) mg/dL Urine Ketones Trace A (NEGATIVE) mg/dL Urine Occult Blood Negative (NEGATIVE) Urine Nitrite Negative (NEGATIVE) Urine Bilirubin Negative (NEGATIVE) Urine Urobilinogen 0.2 (0.2-1.0) EU/dL Ur Leukocyte Esterase Negative (NEGATIVE) Imaging Data CT scan - abdomen: Attestation: I have reviewed the pertinent imaging results. Radiologist's impression: ITS Impressions Abdomen/Pelvis CT 10/19/24 11:27 IMPRESSION: No obstructive uropathy Electronically authenticated by: ABDIRAHMAN JACKSON Date: 10/19/2024 12:04 Discharge Plan Discharge Chief Complaint: Back Pain/Injury Clinical Impression: Strain of lumbar region Patient Disposition: Home, Self-Care Time of Disposition Decision: 13:41 Condition: Good Mode of Transportation: Private Vehicle Prescriptions / Home Meds: New diazepam [Valium] 5 mg tablet 5 mg PO TID PRN (Reason: muscle spasm) 3 Days Qty: 9 0RF No Action buspirone 10 mg tablet 10 mg PO TID aspirin 81 mg capsule 81 mg PO DAILY omeprazole 20 mg capsule,delayed release(DR/EC) 20 mg PO DAILY Print Language: Maltese Instructions: Low Back Strain (ED) Additional Instructions: Call the office of your primary care doctor to arrange for follow-up within the above-stated timeframe. Your ED visit was focused on your acute issue and does not replace primary care. You should review your labs, imaging, and diagnoses from this ED visit with your primary care physician. There may be non-emergent/ incidental findings that need further evaluation. You should review your vital signs including blood pressure with your PCP. If you were prescribed medications you should discuss possible side-effects and drug interactions with your pharmacist. Call 911 or go to the nearest Emergency Department if you develop any new or worsening symptoms. Seek immediate medical attention if you develop: increasing pain, numbness, tingling, weakness, loss of motion in your arms or legs, loss of control of your urine or stool, fever, abdominal pain, chest pain, shortness of breath, or any new or worsening symptoms. Take Valium or Klonopin. Do not take both at the same time as they are similar medications. Referrals: RASHEED LUCAS [Primary Care Provider] - 1 week
[2024-10-19 13:30] LABS: Bilirubin Urine NEGATIVE (NEGATIVE); Blood Urine NEGATIVE (NEGATIVE); Clarity Urine CLEAR (CLEAR); Color Urine YELLOW (YELLOW); Glucose Urine UA NEGATIVE (NEGATIVE); Ketones Urine TRACE mg/dL (NEGATIVE); Leukocyte Esterase Urine NEGATIVE (NEGATIVE); Nitrite Urine NEGATIVE (NEGATIVE); Protein Urine TRACE mg/dL (NEG/TRACE); Specific Gravity Urine >=1.030 (1.005-1.025); Urobilinogen Urine 0.2 EU/dL (0.2-1.0); pH Urine 5.5 (5.0-9.0)
[2024-10-19 13:31] LABS: Urine Microscopic Indicated NO
--- NOTE | 2024-10-21 09:49 | PC.NURSE ---
Pt called and reports that [facility] won't fill Rx and they need to speak to ER doctor. After reviewing the chart, i call [facility], they in fact had recieved the Rx. However, insurance required prior auth. I informed the patient's that if they pay the curry garcia of $12.59 they could pick it up today.
== END 2024-10-19 13:56 | disposition home or self-care (01) ==
PROVIDERS: Emergency Provider Student in an Organized Health Care Education/Training Program; PCP Family Medicine
DX: S39.012A Strain of muscle, fascia and tendon of lower back, initial encounter (principal); X58.XXXA Exposure to other specified factors, initial encounter; Z87.442 Personal history of urinary calculi; E66.01 Morbid (severe) obesity due to excess calories; Z68.29 Body mass index [BMI] 29.0-29.9, adult; R11.10 Vomiting, unspecified
CPT/HCPCS: 36415; 74176; 80053; 81003; 83690; 85007; 85027; 93005; 96374; 96375; 96376; 99284; J1885; J2405; J3360

== ENCOUNTER 2024-12-03 10:25 | Emergency (ER) | payer MEDICARE, SELFPAY ==
[2024-12-03 11:04] VITALS: BP 163/84; PULSE 72; TEMP 36.8; O2SAT 97; BMI 27.6
--- OUTSIDE RECORDS SUMMARY | 2024-12-03 11:10 | XMS_ITS | CCD ---
Author Organization [facility] CliniSyok Care Team Providers Care Dining Server Name Role Phone MEAGHANR LUAN A Unavailable Unavailable NADERER, LUAN A Unavailable Unavailable NADERER, LUAN A Unavailable Unavailable SHIVAM JOHN Unavailable Unavailable NADERER, LUAN A Unavailable Unavailable MARIO, RIGO Unavailable Unavailable MARIO, RIGO Unavailable Unavailable NO FAMILY DOCTOR, NO FAMILY DOCTOR Unavailable Unavailable Schwbhanu WORKMAN Ny E Primary Care Provider [phone] Young Dean Unavailable Alee Hoyositlin Unavailable Schwyvetter DO Ny E Primary Care Provider [phone] Maria Lr , Ny E Primary Care Provider [phone] Shayla Mirza Attending Unavailable Shayla Mirza Primary [...] Unavailable Jun Carrasco MD Primary Care Provider [phone] Schwbhanu WORKMAN Ny E Primary Care Provider Rasheed Lucas MD Primary Care Provider Schwerer DO, Ny E Primary Care Provider [phone] MILA ANDINO Attending Unavailable SCHWERER, NY E Primary Care Unavailable MILA ANDINO Referring Unavailable MILA ANDINO Attending Unavailable SCHWERER, NY E Primary Care Unavailable SCHWERER, NY E Primary Care Unavailable MILA ANDINO Attending Unavailable NISH CRUZ Attending Unavailable RASHEED LUCAS Attending Unavailable CHRISTINA HALE Attending Unavailable LAWSON YOUSIF Attending Unavailable UNALLOCATED, NOMS PROVIDER Referring Unava ilable SHAYY, RASHEED De Leon Attending Unavailable LUPIS SPAIN Attending Unavailable UNALLOCATED, [...] Attending Unavailable MILA ANDINO Referring Unavailable SHAYYRASHEED Attending Unavailable NISH CRUZ Attending Unavailable SVETLANA CARRERA Attending Unavailable SINAMILA Referring Unavailable SVETLANA CARRERA Attending Unavailable SINAMILA Referring Unavailable SVETLANA CARRERA Attending Unavailable SINAMILA Referring Unavailable IRWIN DOUGLASS Attending Unavailable MILA ANDINO Referring Unavailable IRWIN DOUGLASS Attending Unavailable SINAMILA Referring Unavailable IRWIN DOUGLASS Attending Unavailable SINAMILA Referring Unavailable SVETLANA CARRERA Attending Unavailable SINAMILA Referring Unavailable LUPIS SAPIN Attending Unavailable MILA ANDINO Referring Unavailable IRWIN DOUGLASS Attending Unavailable SINAMILA Referring Unavailable IRWIN DOUGLASS Attending Unavailable MILA ANDINO Referring Unavailable SHAYYRASHEED Attending Unavailable SVETLANA CARRERA Attending Unavailable MILA ANDINO Referring Unavailable SHAYYRASHEED Attending Unavailable NISH CRUZ Attending Unavailable Allergies Allergy Classification Reported Allergen(s) Allergy Type Date of Onset Reaction(s) Facility (3 sources) Penicillins; Translations: [PENICILLINS] Drug allergy (disorder) 4 Unknown Reaction [facility] Repository (1 source) Penicillins Drug Allergy 4 [facility] (20 sources) Seasonal allergy; Translations: [SEASONAL ALLERGIES] Allergy to substance 0 Unknown [facility] Work Phone: (10 sources) Penicillin V Drug Allergy 4 Unknown, Unknown Reaction [facility] (20 sources) Penicillins Drug Allergy 4 [facility] (16 sources) Bee Sting; Translations: [BEE STING] Allergy to substance 1 Rash [facility] Work Phone: (1 source) Penicillins Drug allergy (disorder) 8 [facility] Repository (20 sources) Honey bee venom Allergy to substance 1 Rash [facility] (20 sources) Penicillins Drug Allergy 4 Hives, Rash [facility] (20 sources) Pollen Propensity to adverse reactions 4 [facility] Medications Current Medications Medication Drug Class(es) [...] a day for 30 day(s) Oct, Active baclofen 10 mg oral tablet (3 sources) gamma-Aminobutyric Acid-ergic Agonist Start: 10-20-2024 End: 12-03-2024 take 1 tablet by mouth in the morning, then take 1 tablet by mouth in the evening, then take 1 tablet by mouth at bedtime baclofen (Lioresal) 10 MG tablet Indications: Strain of lumbar region, subsequent encounter Take 1 tablet (10 mg) by mouth in the morning and 1 tablet (10 mg) in the evening and 1 tablet (10 mg) before bedtime. 90 tablet 11/03/2024 12/03/2024 Active benzonatate 100 mg oral capsule (1 [...] 24 take 1 tablet by mouth once in the morning calcium carbonate-vitamin D3 (OSCAL 500 + D) 500 mg(1,250mg) -200 units per tablet Indications: Vitamin D deficiency Take 1 tablet by mouth in the morning and 1 tablet in the evening. Take with meals. 180 tablet 3 09/11/2023 Active cefuroxime 250 mg oral tablet (1 source) Cephalosporin Antibacterial Start: 09-11-20 take 1 tablet by mouth every twelve hours Cefuroxime Axetil 250 MG 1 tablet Orally every 12 hrs for 10 day(s) Sep, Active celecoxib 200 mg oral capsule (20 sources) Nonsteroidal Anti-inflammatory Drug Start: 11-17-19 25 take 1 capsule by mouth twice daily as needed for pain celecoxib (CeleBREX) 200 mg capsule Indications: Arthritis TAKE 1 CAPSULE BY MOUTH TWICE DAILY NEEDED FOR PAIN 180 capsule 4 11/17/2024 Active Start: 09-06-2023 End: 11-17-2024 take 1 capsule by mouth twice daily as needed for pain celecoxib (CeleBREX) 200 MG capsule TAKE 1 CAPSULE BY MOUTH TWICE DAILY NEEDED FOR PAIN 02/19/2024 Active Start: 03-11-2022 End: 04-22-2024 take 200 [...] Orally Once a day for 90 days 14 Dec, 2021 Active Comment on above: Take 10 mg [...] every morning. clonazePAM 0.5 mg oral tablet (6 sources) Benzodiazepine Start: 10-06-20 End: 11-05-19 take 1 tablet by mouth in the morning clonazePAM (KlonoPIN) 0.5 MG tablet Indications: Essential tremor Take 1 tablet (0.5 mg) by mouth in the morning and 1 tablet (0.5 mg) before bedtime. 60 tablet 10/06/2024 10/20/2024 Discontinued (Ineffective) clopidogrel 75 mg oral tablet (1 source) P2Y12 Platelet Inhibitor Start: 03-12-20 take 75 mg by mouth once daily Clopidogrel Active 75 MG PO Daily 90 90 March 12, 2022 12:00am Further refills per PCP. diclofenac sodium 0.01 mg/mg topical gel (1 source) Nonsteroidal Anti-inflammatory Drug Start: 03-12-20 22 apply 2 g topically three times daily [...] above: Take 1 capsule by mo uth twice daily as needed for Constipation. doxycycline [...] (FLONASE) 50 mcg/actuation nasal spray Use 1 Kite in each nostril once daily. Active take 1 spray(s) nasal route once daily Flonase 50 MCG/ACT 1 spray in each nostril Nasally Once a day for 30 day(s) Active Comment on above: Use 1 Kite in each nostril once daily. Neuriva - [...] Active Start: 10-18-2021 take 2 tablets by [facility] every twenty-four hours predniSONE 20 MG [...] 24 HR. 0.5 tablets once sam ly. I7-tkyed-N99-coffe e-phosphatid (NEURIVA PLUS BRAIN PERFORMANCE) 1.7 mg-400 mcg- 2.4 mcg cap (6 sources) Start: 03-04-2024 End: 08-18-2024 take 1 capsule by mouth once daily N8-jesbt-C17R05-rohzfj-cl osphatid (NEURIVA PLUS BRAIN PERFORMANCE) 1.7 mg-400 mcg- 2.4 mcg cap Take 1 capsule by mouth once daily. 03/04/2024 08/18/2024 Discontinued Start: 04-30-2024 take 1 capsule by mouth once daily Q1-tjwpm-W76Y59-uagrtu-wclvvrfroq (NEURIVA PLUS BRAIN PERFORMANCE) 1.7 mg-400 mcg- 2.4 mcg cap Take 1 capsule by mouth once daily. 03/04/2024 Active Start: 03-04-2024 take 1 capsule by mouth once daily A3-veyty-Q33P20-xqzpok-ntwiexexel (NEURIVA PLUS BRAIN PERFORMANCE) 1.7 mg-400 mcg- [...] above: Take 1 tablet by mely th once daily. 24 hr metoprolol succinate 25 [...] 1:30pm tamsulosin hydrochloride 0.4 mg oral capsule (4 sources) alpha-Adrenergic Yuli Start: 04-09-2018 End: 07-24-2018 [...] disorder, unspecified] Onset: 05-31-2023 Chronic Cardiac dysrhythmias (12 sources) Unspecified atrial flutter; Translations: [Paroxysmal atrial fibrillation] Onset: 08-15-2018 03-12-2022 Chronic Disorders of lipid metabolism (20 sources) Mixed hyperlipidemia; Translations: [Mixed hyperlipidemia] Onset: 10-18-2021 Resolved: 10-18-2021 Chronic Diverticulosis and diverticulitis (20 sources) Diverticulosis of colon; Translations: [Diverticulosis of large intestine without perforation or abscess without bleeding] Onset: 05-26-2008 12-26-2023 Chronic Esophageal disorders (11 sources) Gastroesophageal reflux disease; Translations: [Gastro-esophageal reflux disease without esophagitis] Onset: 10-06-2024 08-09-2024 Chronic Esophageal disorders (1 source) Esophageal disorders Onset: 08-15-2018 Essential hypertension (10 sources) Hypertensive disorder; Translations: [Essential (primary) hypertension] Onset: 10-06-2024 04-10-2018 Chronic Hyperplasia of prostate (20 sources) Benign prostatic hypertrophy with outflow obstruction; Translations: [Benign prostatic hyperplasia with lower urinary tract symptoms] Onset: 04-07-2016 04-07-2016 Chronic Mycoses (2 sources) Pain in toe; Translations: [Tinea unguium] 08-07-2024 Episodic Nutritional deficiencies (2 sources) Vitamin D deficiency; Translations: [Vitamin D deficiency, unspecified] 11-21-2023 Chronic Osteoarthritis (12 sources) Arthritis; Translations: [Unspecified osteoarthritis, unspecified site] 11-21-2023 Chronic Other circulatory disease (10 sources) Orthostatic hypotension; Translations: [Orthostatic hypotension] Onset: 10-06-2024 10-17-2023 Episodic Other connective tissue disease (10 sources) Neurological symptom; Translations: [Unspecified symptoms and [...] 12-26-2023 12-26-2023 Chronic Other nervous system disorders (10 sources) Compression injury of nerve; 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, unspecified] Onset: 10-06-2024 08-09-2024 Chronic Other nervous system disorders (1 source) Impaired cognition; Translations: [Other symptoms and signs involving cognitive functions and awareness] 03-04-2024 Episodic Other nervous system disorders (14 sources) Tremor; Translations: [Tremor, unspecified] Onset: 10-06-2024 03-12-2022 Episodic Other nutritional; endocrine; and metabolic disorders (10 sources) Obesity; Translations: [Obesity, unspecified] Onset: 10-06-2024 10-17-2023 Chronic Other skin disorders (19 sources) Excessive sweating; Translations: [Generalized hyperhidrosis] Onset: 10-06-2024 08-09-2024 Episodic Other upper respiratory disease (19 sources) Seasonal allergy; Translations: [Other seasonal allergic [...] Onset: 04-29-2020 12-26-2023 Chronic Sprains and strains (9 sources) Strain of muscle, fascia and tendon of lower back, initial encounter; Translations: [Low back strain] Onset: 10-20-2024 Episodic Unclassified (1 source) Encounter for preprocedural [...] / Z68.27(ICD-9) Onset: 08-15-2018 Unclassified (1 source) long term (current) use of aspirin / Z79.82(ICD-9) Onset: [...] Onset: 09-11-2021 Resolved: 09-11-2021 Episodic Mood disorders (3 sources) Mood disorders Onset: 07-19-2023 07-19-2023 Nonspecific [...] Test Name Value Interpretation Reference Range Facility [facility] 09-23-2024 [facility] Telephone (NREUS2) ---- YORDAN MARROQUIN ([id number]) 1945 [place] Date Time Provider Department 09/23/24 MILA ANDINO NREUS2 During your visit today, we recorded the following information about you: Lupis Lee 09/23/2024 9:09 AM Signed calling to say that since last DBS adjustment, Elier is shaking more. She wants to be seen again BETHANIE. She requests a message be sent to Mila about this. Mila Andino APRN.CNP 09/23/2024 1:27 PM Signed He has the ability to go up on the DBS or he can switch back to the settings he came in on last time (Group A) since they felt it was better. I will have him contacted about this and then we can bring him in when I have an appointment available. Mila Anidno APRN-Lucy Hurtado RN 09/24/2024 10:09 AM Signed [...] not know how to make changes on research programmer. Pt is in need for a callback to help with programming BETHANIE. Amna Sandoval APRN.LAURIE 09/25/2024 10:59 AM Signed Jean Marie Pace from [employer] is calling now to discuss programming changes [...] (Jean Marie did reach him) Mila Andino APRN.CNP 09/30/2024 11:06 AM Signed This has been noted. Mila Andino APRN-LAURIE Allergies As of Date: 09/23/2024 Noted Allergy Reaction BEE STING 11/01/2021 2 - Rash PENICILLINS 03/16/2014 4 - Hives SEASONAL ALLERGIES 04/29/2020 16 - Unknown Date Reviewed: 08/18/2024 Reviewed by: Mila Andino APRN.POCKET CUTTER - Fully Assessed Reason for Visit: Question [...] (FLONASE) 50 mcg/actuation nasal spray Use 1 Kite in each nostril once daily. - docusate [...] Encounter Status:Closed by MILA ANDINO [facility] YORD[facility] MARROQUIN ([id number]) 1945 M Date Time Provider Department 09/23/24 [...] [facility] patients declined and stated they only want to come to [place]. Please advise. Lucy Walker RN 09/24/2024 10:09 AM Signed See telephone encounter 09/23/24 Allergies As of Date: 09/23/2024 Noted Allergy Reaction BEE STING 11/01/2021 2 - Rash PENICILLINS 03/16/2014 4 - Hives SEASONAL ALLERGIES 04/29/2020 16 - Unknown Date Reviewed: 08/18/2024 Reviewed by: Mila Andino APRN.POCKET CUTTER - Fully Assessed Prescriptions as of 09/24/2024 [...] (FLONASE) 50 mcg/actuation nasal spray Use 1 Kite in each nostril once daily. - docusate [...] Encounter Status:Closed by LUCY WALKER on 09/24/24 [facility] 09-03-2024 [facility] Telephone (NREUS2) ---- YORDAN MARROQUIN ([id number]) 1945 M Date Time Provider Department 09/03/24 MILA ANDINO NRCURTISS2 During your visit today, we recorded the following information about you: Darlin Santiago 09/03/2024 11:56 AM Signed Scot from [facility] phoned regarding questions about pt's DBS. [phone] Lucy Walker RN 09/03/2024 12:04 PM Signed Scot would like to know if it is it ok to use moist hot pack on neck Right VIM DBS implanted in 2013 Mila Andino APRN.POCKET CUTTER 09/05/2024 4:10 PM Signed I was in communication with [employer] rep who spoke to [employer]. Provided it is not extremely heavy causing stress on the wires then it is not anticipated that it should causes a problem. If they have any other questions about this or any other techniques, the physical therapist should call [employer] [facility] for health care providers at . Also, the therapist should be aware that therapeutic ultrasound/diatherm y should never be used. Scot will be contacted regarding this. Mila Andino APRN-Lucy Hurtado RN 09/08/2024 9:39 AM Signed Call to therapist, message from provider given. Number for [employer] given Estrella Caballero PATSY 09/10/2024 10:20 AM Signed Reviewed and signed plan of care with special attention to treatment modalities that are contraindicated faxed to [facility] at [phone] Attn: Svetlana with confirmation Allergies As of Date: 09/03/2024 Noted Allergy Reaction BEE STING 11/01/2021 2 - Rash PENICILLINS 03/16/2014 4 - Hives SEASONAL ALLERGIES 04/29/2020 16 - Unknown Date Reviewed: 08/18/2024 Reviewed by: Mila Andino APRN.LAURIE - Fully Assessed Reason for Visit: Return Call Requested [Other] Cmt: Rickie PT regarding DBS Prescriptions as of 09/10/2024 [...] (FLONASE) 50 mcg/actuation nasal spray Use 1 Kite in each nostril once daily. - docusate [...] Encounter Status:Closed by LUCY WALKER on 09/03/24 [facility] CNOVon 08-18-2024 CNOV Office Visit (NRMDN) ---- YORDAN MARROQUIN ([id number]) 1945 M Date Time Provider Department 08/18/24 1:00 PM [facility] During your visit today, we recorded the following information about you: Pulse Blood pressure Weight Height 71/minute 129/76 99.7 kg 1.88 m Mila Andino APRN.POCKET CUTTER 08/24/2024 7:07 PM Signed [facility] - FOLLOW UP EVALUATION Ny Hoyos DO [address] [place] [address] Dear Ny Hoyos DO: I had the [...] (FLONASE) 50 mcg/actuation nasal spray Use 1 Kite in each nostril once daily. docusate sodium [...] is 28.22 kg/m?. Movement Disorders Scales Performed: Azny-Aeiqpd-Eehmm Tremor Scale Medication OFF/ON Time of Assessment [...] Marroquin is (more content not included)... Normal [facility] CNOVon 04-22-2024 CNOV Office Visit (NRMDN) ---- YORDAN MARROQUIN ([id number]) 1945 M Date Time Provider Department 04/22/24 2:30 PM MILA ANDINOAKLuis Fernando During your visit today, we recorded the following information about you: Pulse Blood pressure Weight Height 60/minute 116/57 97.5 kg 1.88 m Mila Andino APRN.[facility] 04/22/2024 6:48 PM Signed [facility] - FOLLOW UP EVALUATION Ny Hoyos DO [address] [place] [address] Dear Ny Hoyos DO: I had the [...] Allergies Unknown Current Outpatient Medications Medication Sig acvkiqk-deduvcase-d itamin D3 500 mg-5 mcg (200 unit) per tablet Take 1 tablet by mouth. Y0-ywlwr-I59-coffee -phosphatid (NEURIVA PLUS BRAIN PERFORMANCE) 1.7 mg-400 [...] (FLONASE) 50 mcg/actuation nasal spray Use 1 Kite in each nostril once daily. docusate sodium [...] Weight: 97.5 (more content not included)... Normal [facility] Rhea 04-22-2024 [facility] Telephone (MJAKN) ---- YORDAN MARROQUIN ([id number]) 1945 M Date Time Provider Department 04/22/24 [...] Date Reviewed: 04/22/2024 Reviewed by: Mila Andino APRN.POCKET CUTTER - Fully Assessed Reason for Visit: Appointment [186] Prescriptions as of 08/05/2024 - sumodax-lsfrllmfw-n itamin D3 500 mg-5 mcg (200 unit) per tablet Take 1 tablet by mouth. - J6-nqddx-U54-coffee -phosphatid (NEURIVA PLUS BRAIN PERFORMANCE) 1.7 mg-400 [...] (FLONASE) 50 mcg/actuation nasal spray Use 1 Kite in each nostril once daily. - docusate [...] Status:Closed by SOUMYA HUGO on 08/05/24 Normal [facility] CNCOon 04-09-2024 [facility] CNP[facility] 04-09-2024 CNPN Telephone (NRMDN) ---- RODOLFOYORDAN Costello ([id number]) 1945 M Date Time Provider Department 04/09/24 [...] Date Reviewed: 03/04/2024 Reviewed by: Mila Andino APRN.POCKET CUTTER - Fully Assessed Reason for Visit: Appointment [186] Prescriptions as of 04/09/2024 - K3-wzjjl-T16-coffee -phosphatid (NEURIVA PLUS BRAIN PERFORMANCE) 1.7 mg-400 [...] (FLONASE) 50 mcg/actuation nasal spray Use 1 Kite in each nostril once daily. - docusate [...] Encounter Status:Closed by ESTRELLA CABALLERO on 04/09/24 [facility] Telephone (NREUS2) ---- YORDAN MARROQUIN ([id number]) 1945 M Date Time Provider Department 03/05/24 MILA ANDINO NRCURTISS2 During your visit today, we recorded the following information about you: Darlin Santiago 03/05/2024 10:04 AM Signed Pt's called to report that he had labs done yesterday at outside facility. [facility] Mila Andino APRN.POCKET CUTTER 03/05/2024 4:47 PM Signed I reviewed the [...] provider given PCP is Dr. Lucas on [address] in [facility] Phone number [phone] Fax number [phone] Labs faxed with confirmation of transmission received Allergies As of Date: 03/05/2024 Noted Allergy Reaction BEE STING 11/01/2021 2 - Rash PENICILLINS 03/16/2014 4 - Hives SEASONAL ALLERGIES 04/29/2020 16 - Unknown Date Reviewed: 03/04/2024 Reviewed by: Mila Andino APRN.POCKET CUTTER - Fully Assessed Reason for Visit: Results [95] Cmt: Labs Prescriptions as of 03/06/2024 - H4-gbmra-B47-coffee -phosphatid (NEURIVA PLUS BRAIN PERFORMANCE) 1.7 mg-400 [...] (FLONASE) 50 mcg/actuation nasal spray Use 1 Kite in each nostril once daily. - docusate [...] Encounter Status:Closed by MILA ANDINO on 03/05/24 Normal [facility] CNOVon 03-04-2024 CNOV Office Visit (NRMDN) ---- YORDAN MARROQUIN ([id number]) 1945 M Date Time Provider Department 03/04/24 1:30 PM MILA ANDINO NRN During your visit today, we recorded the following information about you: Pulse Blood pressure Weight Height 62/minute 113/65 98.3 kg 1.88 m Mila Andino APRN.POCKET CUTTER 03/05/2024 12:54 PM Signed [facility] - FOLLOW UP EVALUATION Ny Hoyos DO [address] [place] [address] Dear Ny Hoyos DO: I had the [...] (FLONASE) 50 mcg/actuation nasal spray Use 1 Kite in each nostril once daily. docusate sodium (COLACE) 100 mg capsule Take 1 capsule by mouth twice daily as needed for Constipation. Y5-ygneu-B46-coffee -phosphatid (NEURIVA PLUS BRAIN PERFORMANCE) 1.7 mg-400 [...] is 27.82 kg/m?. Movement Disorders Scales Performed: [place] Cognitive Assessment (MoCA) Visuospatial/Execut mónica 2 Naming 3 Attention 6 Language 0 Abstraction 1 Delayed Memory 2 Orientation 6 Education < or equal to 12 years (1 is true, 0 is false) 1 MoCA Total Score 21 Gzuk-Qnrjeg-Sgtdp Tremor Scale Voice Tremor Action and Intention: [...] No acute (more content not included)... Normal [facility] COVID + FLU Quick Testingon 10-17-2022 SARS-CoV-2 (COVID-19) RNA LARISSA+probe Ql (Unsp spec) Positive FigCard Other COVID + FLU Quick Testing Negative FigCard Other ECH echo transthoracicon [facility] echo transthoracic [facility] Main [place] [address] [place] [address] Echocardiogram Signed Patient: Yordan Marroquin MR#: [id number] : 1945 Acct:[id number] Age/Sex: 76 / M ADM Date: 03/11/22 Loc: 4N Room: 1U8315-2 Type: DIS INOo Attending Dr: Kyler Wood MD Ordering Provider: Zaki Cali DO Date of Service: 03/13/22/ ECH/ECH echo transthoracic: CVA Copies to: DO Juanjose [...] Signed By: Juanjose Limon MD 03/13/22 1543 [facility] Lipid Panelon 03-13-2022 Cholesterol [Mass/Vol] 222 mg/dL High 140-200 [facility] Comment on above: Result Comment: Chol less than 200 mg/dl low risk Chol 201-239 mg/dl borderline risk Chol 240 mg/dl and greater high risk Performed By: #### L IPID #### [facility] [address] [place] [address] Cholesterol in HDL [Mass/Vol] 41 mg/dL Normal 29-71 [facility] Comment on above: Result Comment: HDL CHOL ATP-III CLASSIFICATION Cardiovascular Risk HDL > or equal to 60 mg/dL LOW HDL < 40 mg/dL HIGH Performed By: #### L IPID #### [address] Cholesterol.total/C holesterol in HDL [Mass ratio] 5.4 {ratio} Normal <5.0 [facility] Comment on above: Result Comment: PERF ORMED BY: [place] [address] PATHOLOGIST SUPERVISOR [employer] LUIS FELIPE STARK M.D. Performed By: #### L IPID #### [address] LDL Cholesterol,Calcula nandini 164 mg/dL High 0-100 [facility] Comment on above: Result Comment: LDL ATP III CLASSIFICATION LDL less than 100 mg/dL Optimal LDL 100-129 mg/dL Near or above optimal LDL 130-159 mg/dL Borderline high LDL 160-189 mg/dL High LDL greater than 189 mg/dL Very high Performed By: #### L IPID #### [address] Triglyceride w/Reflex 85 mg/dL Normal 35-149 [facility] Comment on above: Result Comment: TRIG ATP III CLASSIFICATION TRIG less than 150 mg/dL Normal TRIG 150-199 mg/dL Borderline high TRIG 200-500 mg/dL High TRIG greater than 500 mg/dL Very high Standard traceable to the Center for Disease Conrtrol and Prevention (CDC) test method. Performed By: #### L IPID #### [address] VLDL CHOLESTEROL 17 mg/dL Normal [facility] Comment on above: Performed By: #### L IPID #### [address] Basic Metabolic Panelon 05-0 Calcium [Mass/Vol] 8.5 mg/dL Normal 8.2-10.2 [facility] Comment on above: Performed By: #### B 12, T4F, TSH3, A1C WTH eA #### [facility] [address] Chloride [Moles/Vol] 105 mmol/L Normal 95-114 [facility] Comment on above: Performed By: #### B 12, T4F, TSH3, A1C WTH eA #### [facility] [address] CO2 [Moles/Vol] 24.2 mmol/L Normal 22.0-30.0 [facility] Comment on above: Performed By: #### B 12, T4F, TSH3, A1C WTH eA #### [facility] [address] Creatinine [Mass/Vol] 0.68 mg/dL Normal 0.64-1.27 [facility] Comment on above: Performed By: #### B 12, T4F, TSH3, A1C WTH eA #### [facility] [address] [place] [address] [place] Creatinine Clr Calc Pharmacy 95.36 [facility] Comment on above: Performed By: #### B 12, T4F, TSH3, A1C WTH eA #### [facility] [address] Estimated GFR ( Naz > 60 [facility] Comment on above: Result Comment: GFR estimated reference range: According to KDOQI guidelines, <60 ml/min/1.73m2 is sufficient to diagnose a patient with chronic kidney disease. Performed By: #### B 12, T4F, TSH3, A1C WTH eA #### [facility] [address] Estimated GFR (Non- Am > 60 [facility] Comment on above: Performed By: #### B 12, T4F, TSH3, A1C WTH eA #### [facility] 1[address] [place] [address] [place] Glucose [Mass/Vol] 93 mg/dL Normal 70-100 [facility] Comment on above: Result Comment: [facility] Glucose Reference Range is dependent on time and content of last meal. Glucose of more than 200 mg/dL in a nonstressed, ambulatory subject supports the diagnosis of Diabetes Mellitus. ADA recommended reference range Performed By: #### B 12, T4F, TSH3, A1C WTH eA #### [facility] [address] [place] [id number] [facility] Potassium [Moles/Vol] 3.8 mmol/L Normal 3.5-5.1 [facility] Comment on above: Performed By: #### B 12, T4F, TSH3, A1C WT eA #### [facility] [address] Sodium [Moles/Vol] 137 mmol/L Normal 136-146 [facility] Comment on above: Performed By: #### B 12, T4F, TSH3, A1C WTH eA #### [facility] [address] [place] [id number] [facility] Urea nitrogen [Mass/Vol] 10 mg/dL Normal 9-23 [facility] Comment on above: Performed By: #### B 12, T4F, TSH3, A1C WTH eA #### [facility] [address] head stroke alert wo eric n 03-12-2022 CT head stroke alert wo [facility] [address] CT Scan Report Signed Patient: Yordan Marroquin SR MR#: [id number] : 1945 Acct:[id number] Age/Sex: 76 / M ADM Date: 03/11/22 Loc: Room: [address] [place] [address] Type: ADM INOo Attending Dr: Zaki Cali DO Ordering Provider: Willy Topete DO Date of Service: 03/11/22 CT/CT angio neck: left sided weakness ([id number]) CT/CT angio head: left sided weakness ([id number]) CT/CT head stroke alert wo con: left sided weakness Copies to: Willy Topete, DO Zaki Cali, DO CT angio head, CT angio neck, [...] carotid systems or major branches of the [place] of [place]. Impression dictated by: Sam Laurent Jr., D.ONadia03/12/2022 9:14 AM Dictation Location: [place] [address] Transcribed By: [facility] 03/12/22913 Dictated By: Sam Laurent Jr, DO 03/12/2259 Signed By: 03/12/22913 [facility] CT head/brain wo conon 03-12 CT head/brain wo con [facility] [place] [address] [place] [address] CT Scan Report Signed Patient: Yordan Marroquin SR MR#: [id number] : 1945 Acct:[id number] Age/Sex: 76 / M ADM Date: 03/11/22 Loc: Room: [address] [place] [address] Type: ADM INOo Attending Dr: Zaki Cali [...] Laurent Jr., D.O.03/12/2022 9:18 AM Dictation Location: [place] [address] Transcribed By: [facility] 03/12/22917 Dictated By: Sam Laurent Jr, DO 03/12/22913 Signed By: 03/12/22917 Normal [facility] Complete Blood Count Auto Di ffon 03-12-2022 Basophils (Bld) [#/Vol] 0.1 10*3/uL Normal 0.0-0.2 [facility] Comment on above: Result Comment: PERF ORMED BY: [place] [address] PATHOLOGIST SU[employer] LUIS FELIPE STARK M.D. Performed By: #### B 12, T4F, TSH3, A1C WT eA #### [address] Basophils/100 WBC (Bld) 1.2 % Normal . [facility] Comment on above: Performed By: #### B 12, T4F, TSH3, A1C WT eA #### [address] Eosinophils (Bld) [#/Vol] 0.4 10*3/uL Normal 0.0-0.45 [facility] Comment on above: Performed By: #### B 12, T4F, TSH3, A1C WT eA #### [place] [address] [place] Eosinophils/100 WBC (Bld) 6.5 % Normal . [facility] Comment on above: Performed By: #### B 12, T4F, TSH3, A1C WTH eA #### [address] Erythrocyte distribution width (RBC) [Ratio] 13.7 % Normal 12.0-14.8 [facility] Comment on above: Performed By: #### B 12, T4F, TSH3, A1C WTH eA #### [address] Hematocrit (Bld) [Volume fraction] 43.2 % Normal 38.8-50.0 [facility] Comment on above: Performed By: #### B 12, T4F, TSH3, A1C WTH eA #### [address] Hemoglobin (Bld) [Mass/Vol] 15.0 g/dL Normal 13.0-17.0 [facility] Comment on above: Performed By: #### B 12, T4F, TSH3, A1C WTH eA #### [address] Lymphocytes (Bld) [#/Vol] 2.2 10*3/uL Normal 1.00-4.8 [facility] Comment on above: Performed By: #### B 12, T4F, TSH3, A1C WTH eA #### [address] Lymphocytes/100 WBC (Bld) 39.5 % Normal . [facility] Comment on above: Performed By: #### B 12, T4F, TSH3, A1C WTH eA #### [address] MCH (RBC) [Entitic mass] 32.1 pg Normal 27.5-35.2 [facility] Comment on above: Performed By: #### B 12, T4F, TSH3, A1C WTH eA #### [address] MCV (RBC) [Entitic vol] 92.3 fL Normal 83.5-101 [facility] Comment on above: Performed By: #### B 12, T4F, TSH3, A1C WTH eA #### [address] Mean Corpuscular HGB Conc 34.8 g/dL Normal 32.5-35.6 [facility] Comment on above: Performed By: #### B 12, T4F, TSH3, A1C WTH eA #### [facility] [address] [place] [address] [place] Monocytes (Bld) [#/Vol] 0.5 10*3/uL Normal 0.0-0.8 [facility] Comment on above: Performed By: #### B 12, T4F, TSH3, A1C WTH eA #### [facility] [address] [place] [address] [place] Monocytes/100 WBC (Bld) 8.5 % Normal . [facility] Comment on above: Performed By: #### B 12, T4F, TSH3, A1C WT eA #### [facility] [address] [place] [address] [place] Neutrophils (Bld) [#/Vol] 2.5 10*3/uL Normal 1.8-7.7 [facility] Comment on above: Performed By: #### B 12, T4F, TSH3, A1C WT eA #### [place] [address] [place] Neutrophils/100 WBC (Bld) 44.3 % Normal . [facility] Comment on above: Performed By: #### B 12, T4F, TSH3, A1C WT eA #### [place] [address] [place] Nucleated RBC/100 WBC (Bld) [Ratio] 0.0 % Normal 0-0.5 [facility] Comment on above: Performed By: #### B 12, T4F, TSH3, A1C WT eA #### [facility] [address] [place] [address] [place] Platelet mean volume (Bld) [Entitic vol] 8.5 fL Normal 6.6-10.1 [facility] Comment on above: Performed By: #### B 12, T4F, TSH3, A1C WT eA #### [facility] [address] [place] [address] [place] Platelets (Bld) [#/Vol] 283 10*3/uL Normal 150-450 [facility] Comment on above: Performed By: #### B 12, T4F, TSH3, A1C WTH eA #### [facility] [address] RBC (Bld) [#/Vol] 4.68 10*6/uL Normal 3.90-5.60 [facility] Comment on above: Performed By: #### B 12, T4F, TSH3, A1C WT eA #### [facility] [address] WBC (Bld) [#/Vol] 5.7 10*3/uL Normal 4.5-11.0 [facility] Comment on above: Performed By: #### B 12, T4F, TSH3, A1C [facility] eA #### [facility] [address] Magnesiumon 03-12-2022 Magnesium [Mass/Vol] 2.0 mg/dL Normal 1.6-2.6 [facility] Comment on above: Result Comment: PERF ORMED BY: [place] [address] PATHOLOGIST SUPER[employer] LUIS FELIPE STARK M.D. Performed By: #### B 12, T4F, TSH3, A1C [facility] eA #### [facility] [address] [place] [address] Vit. B12/Folate Profileon Cobalamin (Vitamin B12) [Mass/Vol] 422 pg/mL Normal 180-914 [facility] Comment on above: Order Comment: Comme nt Please add to previously drawn labs Performed By: #### V [id number] ####[facility] Folate > 22.3 Normal >5.9 [facility] Comment on above: Order Comment: Comme nt Please add to previously drawn labs Result Comment: Maritza te reference range: >5.9 ng/ml The WHO technical consultation on folate and vitamin b12 deficiencies has determined that folate concentrations less than 4 ng/ml are considered deficient. PERFORMED BY: [place] [address] PATHOLOGIST SUPER[employer] LUIS FELIPE STARK M.D. Performed By: #### V [id number] ####[facility] [id number] [place] [id number] [facility] XR chest 1V portableon 03-12 XR chest 1V portable [facility] [place] [address] [place] [address] XRay Report Signed Patient: Yordan Marroquin SR MR#: [id number] : 1945 Acct:[id number] Age/Sex: 76 / M ADM Date: 03/11/22 Loc: Room: [address] [place] [address] Type: ADM INOo Attending Dr: Zaki Cali [...] Laurent Jr., D.ONadia03/12/2022 10:51 AM Dictation Location: [place] [address] Transcribed By: [facility] 03/12/22 1051 Dictated By: Sam Laurent Jr, DO 03/12/22 1046 Signed By: 03/12/22 1051 Normal [facility] A1C with Estimated Average [facility] 03-11-2022 Glucose [Mass/Vol] 120 mg/dL Normal [facility] Comment on above: Result Comment: PERF ORMED BY: [place] [address] PATHOLOGIST SUPER[employer] LUIS FELIPE STARK M.D. Performed By: #### B 12, T4F, TSH3, A1C WTH eA #### [facility] [address] [place] [address] HbA1c (Bld) [Mass fraction] 5.8 % High 4.3-5.6 [facility] Comment on above: Result Comment: Incr eased risk for diabetes: 5.7 - 6.4 diabetes: >6.4 glycemic control for adults with diabetes: <7.0 Performed By: #### B 12, T4F, TSH3, A1C WTH eA #### [facility] [address] B-Type Natriuretic Peptideon 03-11-2022 Natriuretic peptide B (Bld) [Mass/Vol] 35.0 pg/mL Normal 5-100 [facility] Comment on above: Result Comment: PERF ORMED BY: [facility] 1111 [place] [address] PATHOLOGIST SUPER[employer] LUIS FELIPE STARK M.D. Performed By: #### C BC, PT, PTT, CMP, BNP, HS TROP ####[facility] [address]tt[address] COVID-19 Antigenon 2 COVID-19 Antigen Healthcare [...] developed and its performance characteristic determined by [employer] and validated at [facility]. This test has not been FDA [...] for SARS Antigen by JENIFER PERFORMED BY: [address] [address] PATHOLOGIST SUPER[employer] LUIS FELIPE STARK M.D. Normal [facility] Comment on above: Performed By: #### C OVID-19 SHEBA, SOFIANEG, COVID 19 [facility] #### [address] [address] [facility] COVID-[facility] SARS-CoV-2 (COVID-19) RNA LARISSA+probe Ql (Unsp spec) Negative Normal Negative [facility] Comment on above: Order Comment: Healt hcare Worker?: N Result Comment: Testing for SARS-CoV-2 by RT-PCR This test was developed and its performance characteristics determined by [employer] and validated at the [facility]. This test has not been FDA [...] is terminated or revoked sooner. PERFORMED BY: [address] [address] PATHOLOGIST SUPER[employer] LUIS FELIPE STARK M.D. Performed By: #### C OVID-19 SHEBA, SOFIANEG, COVID 19 [facility] ####[address] Complete Blood Count Auto Di ffon 03-11-2022 Basophils (Bld) [#/Vol] 0.1 10*3/uL Normal 0.0-0.2 [facility] Comment on above: Result Comment: PERF ORMED BY: [facility] [address] [place] [address] PATHOLOGIST SUPER[employer] LUIS FELIPE STARK M.D. Performed By: #### C BC, PT, PTT, CMP, BNP, HS TROP ####[address] Basophils/100 WBC (Bld) 1.2 % Normal . [facility] Comment on above: Performed By: #### C BC, PT, PTT, CMP, BNP, HS TROP ####[address] Eosinophils (Bld) [#/Vol] 0.4 10*3/uL Normal 0.0-0.45 [facility] Comment on above: Performed By: #### C BC, PT, PTT, CMP, BNP, HS TROP ####[address] Eosinophils/100 WBC (Bld) 5.5 % Normal . [facility] Comment on above: Performed By: #### C BC, PT, PTT, CMP, BNP, HS TROP ####[address] Erythrocyte distribution width (RBC) [Ratio] 13.9 % Normal 12.0-14.8 [facility] Comment on above: Performed By: #### C BC, PT, PTT, CMP, BNP, HS TROP ####[address] Hematocrit (Bld) [Volume fraction] 45.8 % Normal 38.8-50.0 [facility] Comment on above: Performed By: #### C BC, PT, PTT, CMP, BNP, HS TROP ####[address] Hemoglobin (Bld) [Mass/Vol] 15.6 g/dL Normal 13.0-17.0 [facility] Comment on above: Performed By: #### C BC, PT, PTT, CMP, BNP, HS TROP ####[address] Lymphocytes (Bld) [#/Vol] 2.9 10*3/uL Normal 1.00-4.8 [facility] Comment on above: Performed By: #### C BC, PT, PTT, CMP, BNP, HS TROP ####[address] Lymphocytes/100 WBC (Bld) 44.3 % Normal . [facility] Comment on above: Performed By: #### C BC, PT, PTT, CMP, BNP, HS TROP ####[address] MCH (RBC) [Entitic mass] 31.5 pg Normal 27.5-35.2 [facility] Comment on above: Performed By: #### C BC, PT, PTT, CMP, BNP, HS TROP ####[address] MCV (RBC) [Entitic vol] 92.1 fL Normal 83.5-101 [facility] Comment on above: Performed By: #### C BC, PT, PTT, CMP, BNP, HS TROP ####[address] Mean Corpuscular HGB Conc 34.2 g/dL Normal 32.5-35.6 [facility] Comment on above: Performed By: #### C BC, PT, PTT, CMP, BNP, HS TROP ####[address] Monocytes (Bld) [#/Vol] 0.5 10*3/uL Normal 0.0-0.8 [facility] Comment on above: Performed By: #### C BC, PT, PTT, CMP, BNP, HS TROP ####[address] Monocytes/100 WBC (Bld) 8.2 % Normal . [facility] Comment on above: Performed By: #### C BC, PT, PTT, CMP, BNP, HS TROP ####[address] Neutrophils (Bld) [#/Vol] 2.6 10*3/uL Normal 1.8-7.7 [facility] Comment on above: Performed By: #### C BC, PT, PTT, CMP, BNP, HS TROP ####[address] Neutrophils/100 WBC (Bld) 40.8 % Normal . [facility] Comment on above: Performed By: #### C BC, PT, PTT, CMP, BNP, HS TROP ####[address] Nucleated RBC/100 WBC (Bld) [Ratio] 0.2 % Normal 0-0.5 [facility] Comment on above: Performed By: #### C BC, PT, PTT, CMP, BNP, HS TROP ####[place] [id number] [facility] Platelet mean volume (Bld) [Entitic vol] 8.4 fL Normal 6.6-10.1 [facility] Comment on above: Performed By: #### C BC, PT, PTT, CMP, BNP, HS TROP ####[place] [id number] [facility] Platelets (Bld) [#/Vol] 325 10*3/uL Normal 150-450 [facility] Comment on above: Performed By: #### C BC, PT, PTT, CMP, BNP, HS TROP ####[place] [id number] [facility] RBC (Bld) [#/Vol] 4.97 10*6/uL Normal 3.90-5.60 [facility] Comment on above: Performed By: #### C BC, PT, PTT, CMP, BNP, HS TROP ####[place] [id number] [facility] WBC (Bld) [#/Vol] 6.5 10*3/uL Normal 4.5-11.0 [facility] Comment on above: Performed By: #### C BC, PT, PTT, CMP, BNP, HS TROP ####[place] [id number] [facility] Comprehensive Metabolic Pane rey 03-11-2022 Albumin [Mass/Vol] 3.7 g/dL Normal 3.2-5.5 [facility] Comment on above: Performed By: #### C BC, PT, PTT, CMP, BNP, HS TROP ####[address] Albumin/Globulin [Mass ratio] 1.0 {ratio} Normal [facility] Comment on above: Performed By: #### C BC, PT, PTT, CMP, BNP, HS TROP ####[place] [id number] [facility] ALP [Catalytic activity/Vol] 46 U/L Normal 32-92 [facility] Comment on above: Performed By: #### C BC, PT, PTT, CMP, BNP, HS TROP ####[place] [id number] [facility] ALT [Catalytic activity/Vol] 21 U/L Normal 10-60 [facility] Comment on above: Performed By: #### C BC, PT, PTT, CMP, BNP, HS TROP ####[place] [id number] [facility] AST [Catalytic activity/Vol] 21 U/L Normal 10-42 [facility] Comment on above: Performed By: #### C BC, PT, PTT, CMP, BNP, HS TROP ####[place] [id number] [facility] Bilirubin [Mass/Vol] 0.5 mg/dL Normal 0.3-1.2 [facility] Comment on above: Performed By: #### C BC, PT, PTT, CMP, BNP, HS TROP ####[address] Calcium [Mass/Vol] 9.2 mg/dL Normal 8.2-10.2 [facility] Comment on above: Performed By: #### C BC, PT, PTT, CMP, BNP, HS TROP ####[address] Chloride [Moles/Vol] 101 mmol/L Normal 95-114 [facility] Comment on above: Performed By: #### C BC, PT, PTT, CMP, BNP, HS TROP ####[address] CO2 [Moles/Vol] 25.6 mmol/L Normal 22.0-30.0 [facility] Comment on above: Performed By: #### C BC, PT, PTT, CMP, BNP, HS TROP ####[address] Creatinine [Mass/Vol] 0.80 mg/dL Normal 0.64-1.27 [facility] Comment on above: Performed By: #### C BC, PT, PTT, CMP, BNP, HS TROP ####[address] Creatinine Clr Calc Pharmacy 95.36 [facility] Comment on above: Result Comment: PERF ORMED BY: [facility] [address] [place] [address] PATHOLOGIST SU[employer] LUIS FELIPE STARK M.D. Performed By: #### C BC, PT, PTT, CMP, BNP, HS TROP ####[address] Estimated GFR ( Naz > 60 [facility] Comment on above: Result Comment: GFR estimated reference range: According to KDOQI guidelines, <60 ml/min/1.73m2 is sufficient to diagnose a patient with chronic kidney disease. Performed By: #### C BC, PT, PTT, CMP, BNP, HS TROP ####[facility] [place] [address] [facility] Estimated GFR (Non- Am > 60 Normal [facility] Comment on above: Performed By: #### C BC, PT, PTT, CMP, BNP, HS TROP ####[facility] [place] [address] [facility] Globulin (S) [Mass/Vol] 3.8 g/dL Normal [facility] Comment on above: Performed By: #### C BC, PT, PTT, CMP, BNP, HS TROP ####[place] [address] [place] [address] [facility] Glucose [Mass/Vol] 95 mg/dL Normal 70-100 [facility] Comment on above: Result Comment: [facility] Glucose Reference Range is dependent on time and content of last meal. Glucose of more than 200 mg/dL in a nonstressed, ambulatory subject supports the diagnosis of Diabetes Mellitus. ADA recommended reference range Performed By: #### C BC, PT, PTT, CMP, BNP, HS TROP ####[place] [address] [place] [address] [facility] Potassium [Moles/Vol] 4.1 mmol/L Normal 3.5-5.1 [facility] Comment on above: Performed By: #### C BC, PT, PTT, CMP, BNP, HS TROP ####[place] [address] [place] [address] [facility] Protein [Mass/Vol] 7.5 g/dL Normal 6.1-7.9 [facility] Comment on above: Performed By: #### C BC, PT, PTT, CMP, BNP, HS TROP ####[address] [address] [facility] Sodium [Moles/Vol] 137 mmol/L Normal 136-146 [facility] Comment on above: Performed By: #### C BC, PT, PTT, CMP, BNP, HS TROP ####[address] [address] [facility] Urea nitrogen [Mass/Vol] 14 mg/dL Normal 9-23 [facility] Comment on above: Performed By: #### C BC, PT, PTT, CMP, BNP, HS TROP ####[facility] [address] [place] [address] [place] Dipstick and Microscopicon 0 03-11-2022 Appearance (U) Cloudy Critically abnormal Clear [facility] Comment on above: Order Comment: Name Collection Type:: Clean-Voided Midstream Performed By: #### A DDONUAPLUS #### [place] [address] [place] Bacteria,Urine None Seen Normal None Seen [facility] Comment on above: Order Comment: Name Collection Type:: Clean-Voided Midstream Performed By: #### A DDONUAPLUS #### [place] [address] [place] Bilirubin,Urine Negative Normal Negative [facility] Comment on above: Order Comment: Name Collection Type:: Clean-Voided Midstream Performed By: #### A DDONUAPLUS #### [place] [address] [place] Color (U) Yellow Normal Yellow [facility] Comment on above: Order Comment: Name Collection Type:: Clean-Voided Midstream Performed By: #### A DDONUAPLUS #### [facility] [address] [place] [address] [place] Glucose Ql (U) Normal Normal Normal [facility] Comment on above: Order Comment: Name Collection Type:: Clean-Voided Midstream Performed By: #### A DDONUAPLUS #### [facility] [address] [place] [address] [place] Hyaline Casts,Urine None Seen Normal 0-8 [facility] Comment on above: Order Comment: Name Collection Type:: Clean-Voided Midstream Result Comment: PERF ORMED BY: [place] [address] PATHOLOGIST SU[employer] LUIS FELIPE STARK M.D. Performed By: #### A DDONUAPLUS #### [facility] [address] [place] [address] [place] Ketones Ql (U) Negative Normal Negative [facility] Comment on above: Order Comment: Name Collection Type:: Clean-Voided Midstream Performed By: #### A DDONUAPLUS #### [address] Leukocyte esterase Test strip Ql (U) Negative Normal Negative [facility] Comment on above: Order Comment: Name Collection Type:: Clean-Voided Midstream Performed By: #### A DDONUAPLUS #### [place] [address] [place] Nitrite,Urine Negative Normal Negative [facility] Comment on above: Order Comment: Name Collection Type:: Clean-Voided Midstream Performed By: #### A DDONUAPLUS #### [address] Occult Blood,Urine Negative Normal Negative [facility] Comment on above: Order Comment: Name Collection Type:: Clean-Voided Midstream Result Comment: PERF ORMED BY: [place] [address] PATHOLOGIST SU[employer] LUIS FELIPE STARK M.D. Performed By: #### A DDONUAPLUS #### [address] pH (U) 6.5 [pH] Normal 5.0-9.0 [facility] Comment on above: Order Comment: Name Collection Type:: Clean-Voided Midstream Performed By: #### A DDONUAPLUS #### [place] [address] [place] Protein,Urine Negative Normal Negative [facility] Comment on above: Order Comment: Name Collection Type:: Clean-Voided Midstream Performed By: #### A DDONUAPLUS #### [place] [address] [place] RBC LM.HPF (Urine sed) [#/Area] 0 /[HPF] Normal 0-4 [facility] Comment on above: Order Comment: Name Collection Type:: Clean-Voided Midstream Performed By: #### A DDONUAPLUS #### [address] Specificy [place],Urine 1.026 Normal 1.001-1.030 [facility] Comment on above: Order Comment: Name Collection Type:: Clean-Voided Midstream Performed By: #### A DDONUAPLUS #### [address] Squamous Epithelial Cell,Urine None Seen Normal 0-2 [facility] Comment on above: Order Comment: Name Collection Type:: Clean-Voided Midstream Performed By: #### A DDONUAPLUS #### [address] Urobilinogen,Urine Normal Normal Normal [facility] Comment on above: Order Comment: Name Collection Type:: Clean-Voided Midstream Performed By: #### A DDONUAPLUS #### [address] WBC LM.HPF (Urine sed) [#/Area] 0 /[HPF] Normal 0-4 [facility] Comment on above: Order Comment: Name Collection Type:: Clean-Voided Midstream Performed By: #### A DDONUAPLUS #### [address] ECG 12 lead ECGon 03-11-2022 ECG 12 lead ECG [facility] [place] [address] [place] [address] Electrocardiograph Report Signed Patient: Yordan Marroquin SR MR#: [id number] : 1945 Acct:[id number] Age/Sex: 76 / M ADM Date: 03/11/22 Loc: Room: [address] [place] [address] Type: DIS INOo Attending Dr: Kyler Wood [...] ECGs available Confirmed by Willy Topete DO ([id number]) on 03/11/2022 8:32:24 PM Referred By: Electronically Signed By:Willy Topete DO Transcribed By: MUS Signed By Willy Topete DO 2031 Normal [facility] Free T4 (Free Thyroxine)on 0 03-11-2022 Free T4 [Mass/Vol] 0.66 ng/dL Normal 0.61-1.12 [facility] Comment on above: Performed By: #### B 12, T4F, TSH3, A1C WT eA #### [facility] [address] Glucose Poct Glucometerson 0 03-11-2022 Glucose [Mass/Vol] 90 mg/dL Normal [facility] Comment on above: Result Comment: [place] Glucose Reference Range is dependent on time and content of last meal. Glucose of more than 200 mg/dL in a nonstressed, ambulatory subject supports the diagnosis of Diabetes Mellitus. PERFORMED BY: [facility] [address] [facility] [place] [address] PATHOLOGIST SUPERVISOR [employer] LUIS FELIPE STARK M.D. Performed By: #### G LULS ####Point of Care testing, ISTAT XRay CREon 03-11-2022 Creatinine [Mass/Vol] 0.8 mg/dL Normal 0.6-1.3 [facility] Comment on above: Result Comment: ER/E SD physician is notified/shown all ISTAT results. Critical values may be confirmed by laboratory testing if deemed necessary by ER attending doctor. Performed By: #### I SCRE ####[facility] [id number] [address]Point of Care testing, ISTAT GFR ( > 60 Normal [facility] Comment on above: Result Comment: GFR estimated reference range: According to KDOQI guidelines, <60 ml/min/1.73m2 is sufficient to diagnose a patient with chronic kidney disease. PERFORMED BY: [facility] [address] [place] [address] PATHOLOGIST SUPERVISOR [employer] LUIS FELIPE STARK M.D. Performed By: #### I SCRE ####[address] of [address] testing, ISTAT GFR (Non- Am > 60 Normal [facility] Comment on above: Performed By: #### I SCRE ####[address]Point of [address] testing, Partial Thromboplastin Timeo n 03-11-2022 aPTT Coag (Bld) [Time] 30.0 s Normal 25.1-36.5 [facility] Comment on above: Result Comment: PERF ORMED BY: [facility] [address] [facility] [place] [address] PATHOLOGIST SUPERVISOR [employer] LUIS FELIPE STARK M.D. Performed By: #### C BC, PT, PTT, CMP, BNP, HS TROP ####[address] Prothrombin Time INRon 03-11 INR Coag (PPP) [Relative time] 1.0 {INR} Normal [facility] Comment on above: Result Comment: INR [...] BC, PT, PTT, CMP, BNP, HS TROP ####[address] PT Coag (PPP) [Time] 11.0 s Normal 9.0-12.9 [facility] Comment on above: Performed By: #### C BC, PT, PTT, CMP, BNP, HS TROP ####[address] [place] Ag Negativeon 05-07-20 22 [place] Ag Negative Negative Normal Negative [facility] Comment on above: Result Comment: This is a duplicate [place] SARS Antigen (JENIFER) result to be used for statistical tracking purpose only. PERFORMED BY: [place] [id number] PATHOLOGIST SUPER[employer] LUIS FELIPE STARK M.D. Performed By: #### C OVID-19 SHEBA, SOFIANEG, COVID 19 [facility] #### [place] [id number] [facility] Thyroid Stimulating Hormoneo n 03-11-2022 TSH Qn 2.65 m[IU]/L Normal 0.45-5.33 [facility] Comment on above: Result Comment: PERF ORMED BY: [place] [address] PATHOLOGIST SUPERVISOR [employer] LUIS FELIPE STARK M.D. Performed By: #### B 12, T4F, TSH3, A1C [facility] eA #### [address] Troponin I High Sensitivityo n 03-11-2022 Troponin I High Sensitivity 3 pg/mL Normal 0-20 [facility] Comment on above: Result Comment: PERF ORMED BY: [place] [address] PATHOLOGIST SUPERVISOR [employer] LUIS FELIPE STARK M.D. Performed By: #### C BC, PT, PTT, CMP, BNP, HS TROP ####[facility] [place] [id number] [facility] Vitamin B12on 03-11-2022 Cobalamin (Vitamin B12) [Mass/Vol] 468 pg/mL Normal 180-914 [facility] Comment on above: Performed By: #### B 12, T4F, TSH3, A1C [facility] eA #### [place] [id number] [facility] COVID Quick Testingon 2020 Result Negative [employer] Other PROGRESSon 06-14-2020 PROGRESS HNO ID: [id number] Author: Interface Note Service: ? Author Type: ? Type: Progress Notes Filed: 06/14/2020 11:07 AM Note Text: The surgical encounter documentation contains information performed by a different Karen Cedeño than is indicated by the provider record. Clinical care was provided and documented by the correct provider. [facility] ---- LETICIAYORDAN Horta ([id number]) 1945 M Date Time Provider Department 07/02/19 1:30 PM MAREK RAND NRESFV During your visit today, we recorded the following information about you: Temperature Pulse Respiration Blood pressure 97.3 degrees 66/minute 18/minute 134/60 Weight Height 96.9 kg 1.88 m Marek Rand DO 07/02/2019 2:[address] [facility] Neurological [facility] Movement Disorders Neurotoxin Visit ? Date: July [...] INFORMED CONSENT ? Yordan Marroquin Medical Record: [id number] ? Procedure: bilateral cervical muscle injections with [...] 1:43 PM ? ? Dept of [facility] ? UNIVERSAL PROTOCOL / SAFETY CHECKLIST ? [...] guidance: Yes Injection Site: Cervical dystonia: CPT 67610 ? ? Left Right Sternocleidomastoid ? ? Splenius capitus 30 30 Scalene ? ? Levator Scapulae ? ? Trapezius ? ? Semispinalis 30 30 Occipitalis 30 30 ? Lot#: [id number] Exp Date 10/2021 ? ? ? Future plan of care: Follow up: 3 months Neurotoxin Change: No Dose Change: No Initial injections previously - no ineffective with no ADRs. Will increase dose Referring Provider: MAREK RAND [[id number]] Allergies As of Date: 07/02/2019 Noted Allergy [...] * FLUTICASONE PROPIONATE 50 MCG* Use 1 Kite in each nostril o* DOCUSATE SODIUM 100 [...] Status:Closed by MAREK RAND DO on 07/02/19 [facility] PROGRESSon 07-02-2019 PROGRESS HNO ID: [id number] Author: Marek Rand Service: ? Author Type: Physician Type: Progress Notes Filed: 07/02/2019 2:05 PM Note Text: [facility] Neurological Yaz[facility] Movement Disorders Neurotoxin Visit ? Date: July [...] INFORMED CONSENT ? Yordan Marroquin Medical Record: [id number] ? Procedure: bilateral cervical muscle injections with [...] 1:43 PM ? ? Dept of [facility] ? UNIVERSAL PROTOCOL / SAFETY CHECKLIST ? [...] guidance: Yes Injection Site: Cervical dystonia: CPT 98000 ? ? Left Right Sternocleidomastoid ? ? Splenius capitus 30 30 Scalene ? ? Levator Scapulae ? ? Trapezius ? ? Semispinalis 30 30 Occipitalis 30 30 ? Lot#: [id number] Exp Date 10/2021 ? ? ? Future plan of care: Follow up: 3 months Neurotoxin Change: No Dose Change: No Initial injections previously - no ineffective with no ADRs. Will increase dose Normal [facility] Vital Signs Date Time Vital Sign Value Performing Clinician Facility 11-06-2024 08:46-0500 Body height 188 cm Nish Cruz DPM Work Phone: [facility] 11-06-2024 08:46-0500 Body mass index (BMI) [Ratio] 27.86 kg/m2 Nish Cruz DPM Work Phone: [facility] 11-06-2024 08:46-0500 Body weight 98.43 kg Nish Javon DPM Work Phone: [facility] 10-20-2024 10:46-0500 Body height 188 cm Rasheed Lucas MD Work Phone: [facility] 10-20-2024 10:46-0500 Body mass index (BMI) [Ratio] 27.86 kg/m2 Rasheed Lucas MD Work Phone: [facility] 10-20-2024 10:46-0500 Body weight 98.43 kg Rasheed Lucas MD Work Phone: [facility] 10-20-2024 10:46-0500 Diastolic blood pressure 68 mm[Hg] Rasheed Lucas MD Work Phone: [facility] 10-20-2024 10:46-0500 Heart rate 91 /min Rasheed Lucas MD Work Phone: [facility] 10-20-2024 10:46-0500 SaO2% (BldA) [Mass fraction] 97 % Rasheed Lucas MD Work Phone: [facility] 10-20-2024 10:46-0500 Systolic blood pressure 102 mm[Hg] Rasheed Lucas MD Work Phone: [facility] 10-06-2024 08:47-0500 Body height 188 cm Rasheed Lucas MD Work Phone: [facility] 10-06-2024 08:47-0500 Body mass index (BMI) [Ratio] 28.5 kg/m2 Rasheed Lucas MD Work Phone: [facility] 10-06-2024 08:47-0500 Body weight 100.7 kg Rasheed Lucas MD Work Phone: [facility] 10-06-2024 08:47-0500 Diastolic blood pressure 82 mm[Hg] Rasheed Lucas MD Work Phone: [facility] 10-06-2024 08:47-0500 Heart rate 78 /min Rasheed Lucas MD Work Phone: [facility] 10-06-2024 08:47-0500 SaO2% (BldA) [Mass fraction] 96 % Rasheed Lucas MD Work Phone: [facility] 10-06-2024 08:47-0500 Systolic blood pressure 108 mm[Hg] Rasheed Lucas MD Work Phone: [facility] 08-18-2024 12:56-0400 Body height 188 cm Mila Andino APRN.POCKET CUTTER Work Phone: [facility] 08-18-2024 12:56-0400 Body mass index (BMI) [Ratio] 28.22 kg/m2 Mila Andino APRN.POCKET CUTTER Work Phone: [facility] 08-18-2024 12:56-0400 Body weight 99.7 kg Mila Andino APRN.POCKET CUTTER Work Phone: [facility] 08-18-2024 12:56-0400 Diastolic blood pressure 76 mm[Hg] Mila Andino APRN.POCKET CUTTER Work Phone: [facility] 08-18-2024 12:56-0400 Heart rate 71 /min Mila Andino APRN.POCKET CUTTER Work Phone: [facility] 08-18-2024 12:56-0400 SaO2% (BldA) [Mass fraction] 94 % Mila Andino APRN.POCKET CUTTER Work Phone: [facility] 08-18-2024 12:56-0400 Systolic blood pressure 129 mm[Hg] Mila Andino APRN.POCKET CUTTER Work Phone: [facility] 08-09-2024 10:16-0400 Body height 187.96 cm [facility] 08-09-2024 10:16-0400 Body mass index (BMI) [Ratio] 27.8 kg/m2 [facility] 08-09-2024 10:16-0400 Body temperature 98.4 [degF] [facility] 08-09-2024 10:16-0400 Body weight 98.42 kg [facility] 08-09-2024 10:16-0400 Diastolic blood pressure 68 mm[Hg] [facility] 08-09-2024 10:16-0400 Heart rate 72 /min [facility] 08-09-2024 10:16-0400 Respiratory rate 18 /min [facility] 08-09-2024 10:16-0400 SaO2% (BldA) [Mass fraction] 96 % [facility] 08-09-2024 10:16-0400 Systolic blood pressure 133 mm[Hg] [facility] 08-07-2024 08:58-0400 Body height 188 cm Nish Cruz DPM Work Phone: [facility] 08-07-2024 08:58-0400 Body mass index (BMI) [Ratio] 27.09 kg/m2 Nish Cruz DPM Work Phone: [facility] 08-07-2024 08:58-0400 Body weight 95.71 kg Nish Cruz DPM Work Phone: [facility] 08-07-2024 08:58-0400 Diastolic blood pressure 70 mm[Hg] Nish Cruz DPM Work Phone: [facility] 08-07-2024 08:58-0400 Heart rate 75 /min Nish Cruz DPM Work Phone: [facility] 08-07-2024 08:58-0400 Respiratory rate 17 /min Nish Cruz DPM Work Phone: [facility] 08-07-2024 08:58-0400 Systolic blood pressure 120 mm[Hg] Nish Cruz DPM Work Phone: [facility] 04-22-2024 14:20-0400 Body height 188 cm Mila Andino APRN.POCKET CUTTER Work Phone: [facility] 04-22-2024 14:20-0400 Body mass index (BMI) [Ratio] 27.6 kg/m2 Mila Andino APRN.POCKET CUTTER Work Phone: [facility] 04-22-2024 14:20-0400 Body weight 97.5 kg Mila Andino STATION ENGINEER CHIEF.POCKET CUTTER Work Phone: [facility] 04-22-2024 14:20-0400 Diastolic blood pressure 57 mm[Hg] Mila Andino STATION ENGINEER CHIEF.POCKET CUTTER Work Phone: [facility] 04-22-2024 14:20-0400 Heart rate 60 /min Mila Andino STATION ENGINEER CHIEF.POCKET CUTTER Work Phone: [facility] 04-22-2024 14:20-0400 SaO2% (BldA) [Mass fraction] 97 % Mila Andino STATION ENGINEER CHIEF.POCKET CUTTER Work Phone: [facility] 04-22-2024 14:20-0400 Systolic blood pressure 116 mm[Hg] Mila Andino STATION ENGINEER CHIEF.POCKET CUTTER Work Phone: [facility] 03-04-2024 13:22-0400 Body height 188 cm Mila Andino STATION ENGINEER CHIEF.POCKET CUTTER Work Phone: [facility] 03-04-2024 13:22-0400 Body mass index (BMI) [Ratio] 27.82 kg/m2 Mila Andino STATION ENGINEER CHIEF.POCKET CUTTER Work Phone: [facility] 03-04-2024 13:22-0400 Body weight 98.3 kg Mila Andino STATION ENGINEER CHIEF.POCKET CUTTER Work Phone: [facility] 03-04-2024 13:22-0400 Diastolic blood pressure 65 mm[Hg] Mila Andino STATION ENGINEER CHIEF.POCKET CUTTER Work Phone: [facility] 03-04-2024 13:22-0400 Heart rate 62 /min Mila Andino STATION ENGINEER CHIEF.POCKET CUTTER Work Phone: [facility] 03-04-2024 13:22-0400 SaO2% (BldA) [Mass fraction] 97 % Mila Andino STATION ENGINEER CHIEF.POCKET CUTTER Work Phone: [facility] 03-04-2024 13:22-0400 Systolic blood pressure 113 mm[Hg] Mila Andino STATION ENGINEER CHIEF.POCKET CUTTER Work Phone: [facility] 09-04-2023 10:30-0400 Body height 188 cm Mila Andino STATION ENGINEER CHIEF.POCKET CUTTER Work Phone: [facility] 09-04-2023 10:30-0400 Body weight 95.07 kg Mila Andino STATION ENGINEER CHIEF.POCKET CUTTER Work Phone: [facility] 09-04-2023 10:30-0400 Diastolic blood pressure 69 mm[Hg] Mila Andino STATION ENGINEER CHIEF.POCKET CUTTER Work Phone: [facility] 09-04-2023 10:30-0400 Heart rate 63 /min Mila Andino STATION ENGINEER CHIEF.POCKET CUTTER Work Phone: [facility] 09-04-2023 10:30-0400 SaO2% (BldA) [Mass fraction] 95 % Mila Andino STATION ENGINEER CHIEF.POCKET CUTTER Work Phone: [facility] 09-04-2023 10:30-0400 Systolic blood pressure 129 mm[Hg] Mila Andino STATION ENGINEER CHIEF.POCKET CUTTER Work Phone: [facility] 04-01-2023 11:50-0400 Body height 184.15 cm Krystina Shell Other [facility] Other 04-01-2023 11:50-0400 Body mass index (BMI) [Ratio] 26.76 kg/m2 Krystina Shell Other [facility] Other 04-01-2023 11:50-0400 Body temperature 97.5 [degF] Krystina Shell Other [facility] Other 04-01-2023 11:50-0400 Body weight 90.77 kg Krystina Shell Other [facility] Other 04-01-2023 11:50-0400 Diastolic blood pressure 92 mm[Hg] Krystina Goff Other [facility] Other 04-01-2023 11:50-0400 Respiratory rate 18 /min Krystina Goff Other [facility] Other 04-01-2023 11:50-0400 SaO2% (BldA) [Mass fraction] 94 % Krystina Goff Other [facility] Other 04-01-2023 11:50-0400 Systolic blood pressure 140 mm[Hg] Krystina Goff Other [facility] Other 02-08-2023 12:36-0400 Body height 188 cm Mila Andino STATION ENGINEER CHIEF.POCKET CUTTER Work Phone: [facility] 02-08-2023 12:36-0400 Body weight 94.39 kg Mila Andino STATION ENGINEER CHIEF.POCKET CUTTER Work Phone: [facility] 02-08-2023 12:36-0400 Diastolic blood pressure 65 mm[Hg] Mila Andino STATION ENGINEER CHIEF.POCKET CUTTER Work Phone: [facility] 02-08-2023 12:36-0400 Heart rate 72 /min Mila Andino STATION ENGINEER CHIEF.POCKET CUTTER Work Phone: [facility] 02-08-2023 12:36-0400 SaO2% (BldA) [Mass fraction] 97 % Mila Andino STATION ENGINEER CHIEF.POCKET CUTTER Work Phone: [facility] 02-08-2023 12:36-0400 Systolic blood pressure 106 mm[Hg] Mila Andino STATION ENGINEER CHIEF.POCKET CUTTER Work Phone: [facility] 11-09-2022 12:13-0500 Body height 188 cm Mila Andino STATION ENGINEER CHIEF.POCKET CUTTER Work Phone: [facility] 11-09-2022 12:13-0500 Body weight 94.39 kg Mila Andino STATION ENGINEER CHIEF.POCKET CUTTER Work Phone: [facility] 11-09-2022 12:13-0500 Diastolic blood pressure 76 mm[Hg] Mila Andino APRN.POCKET CUTTER Work Phone: [facility] 11-09-2022 12:13-0500 Heart rate 72 /min Mila Andino APRN.POCKET CUTTER Work Phone: [facility] 11-09-2022 12:13-0500 SaO2% (BldA) [Mass fraction] 97 % Mila Andino STATION ENGINEER CHIEF.POCKET CUTTER Work Phone: [facility] 11-09-2022 12:13-0500 Systolic blood pressure 115 mm[Hg] Mila Andino APRN.POCKET CUTTER Work Phone: [facility] 10-17-2022 10:20-0500 Body height 184.15 cm Tyler Ulrich Other [employer] Other 10-17-2022 10:20-0500 Body mass index (BMI) [Ratio] 28.89 kg/m2 Tyler Ulrich Other [facility] Other 10-17-2022 10:20-0500 Body temperature 98.5 [degF] Tyler Ulrich Other [facility] Other 10-17-2022 10:20-0500 Body weight 97.98 kg Tyler Ulrich Other [facility] Other 10-17-2022 10:20-0500 Diastolic blood pressure 77 mm[Hg] Tyler Ulrich Other [facility] Other 10-17-2022 10:20-0500 Respiratory rate 18 /min Tyler Ulrich Other [facility] Other 10-17-2022 10:20-0500 SaO2% (BldA) [Mass fraction] 96 % Tyler Ulrich Other [facility] Other 10-17-2022 10:20-0500 Systolic blood pressure 120 mm[Hg] Tyler Ulrich Other [facility] [employer] [facility] Other 08-10-2022 10:39-0400 Body weight 95.25 kg Stacy Jones MD Work Phone: [facility] 08-10-2022 10:39-0400 Diastolic blood pressure 82 mm[Hg] Stacy Jones MD Work Phone: [facility] 08-10-2022 10:39-0400 Heart rate 69 /min Stacy Jones MD Work Phone: [facility] 08-10-2022 10:39-0400 SaO2% (BldA) [Mass fraction] 98 % Stacy Jones MD Work Phone: [facility] 08-10-2022 10:39-0400 Systolic blood pressure 120 mm[Hg] Stacy Jones MD Work Phone: [facility] 05-02-2022 11:45-0400 Body height 188 cm Mila Andino APRN.POCKET CUTTER Work Phone: [facility] 05-02-2022 11:45-0400 Body weight 94.26 kg Mila Andino APRN.POCKET CUTTER Work Phone: [facility] 05-02-2022 11:45-0400 Diastolic blood pressure 75 mm[Hg] Mila Andino APRN.POCKET CUTTER Work Phone: [facility] 05-02-2022 11:45-0400 Heart rate 63 /min Mila Andino APRN.POCKET CUTTER Work Phone: [facility] 05-02-2022 11:45-0400 SaO2% (BldA) [Mass fraction] 99 % Mila Andino APRN.POCKET CUTTER Work Phone: [facility] 05-02-2022 11:45-0400 Systolic blood pressure 129 mm[Hg] Mila Andino APRN.POCKET CUTTER Work Phone: [facility] 05-02-2022 11:07-0400 Body height 188 cm Stacy Jones MD Work Phone: [facility] 05-02-2022 11:07-0400 Body weight 94.12 kg Stacy Jones MD Work Phone: [facility] 05-02-2022 11:07-0400 Diastolic blood pressure 75 mm[Hg] Stacy Jones MD Work Phone: [facility] 05-02-2022 11:07-0400 Heart rate 63 /min Stacy Jones MD Work Phone: [facility] 05-02-2022 11:07-0400 SaO2% (BldA) [Mass fraction] 99 % Stacy Jones MD Work Phone: [facility] 05-02-2022 11:07-0400 Systolic blood pressure 129 mm[Hg] Stacy Jones MD Work Phone: [facility] 01-16-2022 10:15-0400 Body height 184.15 cm Nykimberly Matsonerejoe Other [employer] Other 01-16-2022 10:15-0400 Body mass index (BMI) [Ratio] 28.89 kg/m2 Ny Matsonerer Other [employer] Other 01-16-2022 10:15-0400 Body temperature 97.7 [degF] Ny Schwerer Other [facility] Other 01-16-2022 10:15-0400 Body weight 97.98 kg Ny Schwerer Other [facility] Other 01-16-2022 10:15-0400 Diastolic blood pressure 78 mm[Hg] Ny Schwerer Other [facility] Other 01-16-2022 10:15-0400 SaO2% (BldA) [Mass fraction] 96 % Ny Schwerer Other [facility] Other 01-16-2022 10:15-0400 Systolic blood pressure 122 mm[Hg] Ny Schwerer Other [facility] Other 10-18-2021 11:45-0500 Body height 184.15 cm Ny Schwerer Other [facility] Other 10-18-2021 11:45-0500 Body mass index (BMI) [Ratio] 28.61 kg/m2 Ny Schwerer Other [facility] Other 10-18-2021 11:45-0500 Body temperature 98.4 [degF] Ny Schwerer Other [facility] Other 10-18-2021 11:45-0500 Body weight 97.03 kg Ny Schwerer Other [facility] Other 10-18-2021 11:45-0500 Diastolic blood pressure 72 mm[Hg] Ny Schwerer Other [facility] Other 10-18-2021 11:45-0500 SaO2% (BldA) [Mass fraction] 95 % Ny Schwerer Other [facility] Other 10-18-2021 11:45-0500 Systolic blood pressure 126 mm[Hg] Ny Schwerer Other [facility] Other 09-11-2021 12:30-0500 Body height 184.15 cm Young Clatskanie Other [facility] Other 09-11-2021 12:30-0500 Body mass index (BMI) [Ratio] 28.09 kg/m2 Young Dean Other [employer] Other 09-11-2021 12:30-0500 Body temperature 97.6 [degF] Young Dean Other [employer] Other 09-11-2021 12:30-0500 Body weight 95.26 kg Young Dean Other [facility] Other 09-11-2021 12:30-0500 Diastolic blood pressure 91 mm[Hg] Young Dean Other [facility] Other 09-11-2021 12:30-0500 SaO2% (BldA) [Mass fraction] 97 % Young Dean Other [facility] Other 09-11-2021 12:30-0500 Systolic blood pressure 132 mm[Hg] Young Dean Other [employer] Other Encounters Encounter Date Encounter Type Care Provider Facility Start: 11-17-2024 End: 11-17-2024 [facility] Comment on above: Arthritis Start: 11-06-2024 End: 11-06-2024 Bamboo flowsheet Nish Cruz DPM Work Phone: [facility] Start: 11-06-2024 End: 11-06-2024 Bamboo flowsheet Nish Cruz DPM Work Phone: [facility] Start: 11-06-2024 End: 11-06-2024 Patient encounter procedure Nish Cruz DPM Work Phone: [facility] Comment on above: Rheumatoid arthritis of other site, unspecified whether rheumatoid factor present (CMS/HCC) (Primary Dx); Pain due to onychomycosis of toenails of both feet Start: 11-06-2024 End: 11-06-2024 ambulatory NISH CRUZ Not Available Start: 10-20-2024 End: 10-20-2024 ambulatory RASHEED LUCAS Not Available Start: 10-20-2024 End: 10-20-2024 Office outpatient visit 25 minutes Rasheed Lucas MD Work Phone: [facility] Comment on above: Tremor (Primary Dx); Strain of lumbar region, subsequent encounter; S/P deep brain stimulator placement Start: 10-07-2024 End: 10-07-2024 Telephone encounter Irwin Douglass SADDLE LINING [employer]ITCHER [facility] Comment on above: Cx [...] 10-01-2024 End: 10-01-2024 Bamboo flowsheet Irwin Douglass [employer] [facility] Start: 10-01-2024 End: 10-01-2024 Bamboo flowsheet Irwin Douglass [employer] [facility] Start: 10-01-2024 End: 10-01-2024 ambulatory Irwin Douglass [employer] [facility] Comment on above: Essential tremor (Pr imary Dx); Abnormality of gait; Poor balance Start: 09-29-2024 End: 09-29-2024 Bamboo flowsheet Irwin Douglass [employer] [facility] Start: 09-29-2024 End: 09-29-2024 Bamboo flowsheet Irwin Douglass [employer] [facility] Start: 09-29-2024 End: 09-29-2024 ambulatory Irwin Douglass [employer] [facility] Comment on above: Essential tremor (Pr imary Dx); Abnormality of gait; Poor balance Start: 09-24-2024 End: 09-24-2024 Bamboo flowsheet Lupis Spain [employer] [facility] Start: 09-24-2024 End: 09-24-2024 Bamboo flowsheet Lupis Spain [employer] [facility] Start: 09-24-2024 End: 09-24-2024 ambulatory Lupis Spain [employer] [facility] Comment on above: Essential tremor (Pr imary Dx); Abnormality of gait; Poor balance Start: 09-23-2024 End: 09-24-2024 Telephone encounter Mila Sina REY.POCKET CUTTER Work Phone: [facility] Comment on above: Question Start: 09-22-2024 End: 09-22-2024 Bamboo flowsheet Svetlana Carrera PT [facility] Start: 09-22-2024 End: 09-22-2024 Bamboo flowsheet Svetlana Carrera PT [facility] Start: 09-22-2024 End: 09-22-2024 ambulatory Svetlana Carrera PT [facility] Comment on above: Essential tremor (Pr imary Dx); Abnormality of gait Start: 09-17-2024 End: 09-17-2024 Bamboo flowsheet Irwin Gio SADDLE LINING STITCHER [facility] Start: 09-17-2024 End: 09-17-2024 Bamboo flowsheet Irwin Douglass SADDLE LINING STITCHER [facility] Start: 09-17-2024 End: 09-17-2024 ambulatory Irwin Douglass SADDLE LINING STITCHER [facility] Comment on above: Essential tremor (Pr imary Dx); Abnormality of gait; Poor balance Start: 09-15-2024 End: 09-15-2024 Bamboo flowsheet Irwin Gio SADDLE LINING STITCHER [facility] Start: 09-15-2024 End: 09-15-2024 Bamboo flowsheet Irwin Gio SADDLE LINING STITCHER [facility] Start: 09-15-2024 End: 09-15-2024 ambulatory Irwin Douglass SADDLE LINING STITCHER [facility] Comment on above: Essential tremor (Pr imary Dx); Abnormality of gait; Poor balance Start: 09-10-2024 End: 09-10-2024 Bamboo flowsheet Irwin Douglass SADDLE LINING STITCHER [facility] Start: 09-10-2024 End: 09-10-2024 Bamboo flowsheet Irwin Douglass SADDLE LINING STITCHER [facility] Start: 09-10-2024 End: 09-10-2024 ambulatory Irwin Douglass SADDLE LINING STITCHER [facility] Comment on above: Essential [...] 09-03-2024 End: 09-03-2024 Telephone encounter Mila Andino APRN.POCKET CUTTER Work Phone: [facility] Comment on above: Return Call Requeste d [...] Start: 08-18-2024 End: 08-18-2024 ambulatory MILA ANDINO Facility:[facility] Start: 08-18-2024 End: 08-18-2024 Patient encounter procedure Mila Andino APRN.POCKET CUTTER Work Phone: Neurology Comment on above: Essential tremor (Pr imary Dx); Anxiety; S/P deep brain stimulator placement; Gait disorder Start: 08-13-2024 End: 08-14-2024 Refill Jun Carrasco MD Work Phone: [facility] Comment on above: Gastroesophageal ref lux disease, unspecified whether esophagitis present Start: 08-09-2024 End: 08-09-2024 ambulatory [facility] Work Phone: Start: 08-09-2024 End: 08-09-2024 Patient encounter procedure [facility] [place] Work Phone: Start: 08-07-2024 [...] other site, unspecified whether rheumatoid factor present (CMS/[facility]ER[facility]) (Primary Dx); Pain due to onychomycosis of toenails of both feet Start: 06-17-2024 End: 06-17-2024 ambulatory RASHEED LUCAS Not Available Start: 06-08-2024 Non-patient / Non-visit [facility] Work Phone: Start: 06-05-2024 End: 06-05-2024 [...] Start: 05-05-2024 Patient encounter procedure Nish Cruz DPHaley Work Phone: [facility] Start: 05-05-2024 End: 05-05-2024 ambulatory RASHEED LUCAS Not Available Start: 04-30-2024 End: 04-30-2024 ambulatory LAWSON YOUSIF Not Available Start: 04-22-2024 End: 04-22-2024 ambulatory MILA ANDINO Facility:[facility] Start: 04-22-2024 End: 04-22-2024 Patient encounter procedure Mila Andino APRN.CNP Work Phone: Neurology Comment on above: Essential tremor (Pr imary Dx); S/P deep brain stimulator placement Start: 04-22-2024 End: 08-05-2024 Telephone encounter Mila Andino APRN.CNP Work Phone: Neurology Comment on above: Appointment Start: 04-09-2024 Telephone encounter Mila mejia APRN.CNP Work Phone: Neurology Comment on above: Appointment Start: 03-05-2024 Telephone encounter Mila mejia APRN.POCKET CUTTER Work Phone: [facility] Comment on above: Results (Labs) Start: 03-04-2024 End: 03-04-2024 ambulatory NY HOYOS Facility:[facility] Start: 03-04-2024 End: 03-04-2024 Patient encounter procedure Mila Andino APRN.CNP Work Phone: Neurology Comment on above: Essential tremor (Pr imary Dx); S/P deep brain stimulator placement; Anxiety; Abnormality of gait; Cognitive impairment; Vitamin D deficiency Start: 01-31-2024 End: 01-31-2024 ambulatory CHRSITINA HALE Not Available Start: 01-01-2024 End: 01-01-2024 ambulatory RASHEED LUCSA Not Available Start: 11-29-2023 End: 11-29-2023 ambulatory NISH CRUZ Not Available Start: 11-21-2023 Daniel Carrasco MD Work Phone: [facility] Comment on above: Arthritis; Vitamin D deficiency Start: 09-04-2023 End: 09-04-2023 Patient encounter procedure Mila Andino APRN.CNP Work Phone: Neurology Comment on above: Essential tremor (Pr imary Dx); Anxiety; S/P deep brain stimulator placement Start: 04-11-2023 Telephone encounter Mila mejia APRN.CNP Work Phone: Neurology Comment on above: Appointment Start: 04-05-2023 Telephone encounter Mila mejia APRN.CNP Work Phone: [facility] Comment on above: Symptom Management Start: 04-01-2023 End: 04-01-2023 ambulatory Krystina Goff Other [employer] Other Start: 04-01-2023 Office outpatient vi sit 15 minutes Krystina Goff [facility] [place] Start: 02-08-2023 End: 02-08-2023 Patient encounter procedure Mila Andino APRN.CNP Work Phone: Neurology Comment on above: Essential tremor (Pr imary Dx); S/P deep brain stimulator placement; Anxiety Start: 11-09-2022 End: 11-09-2022 Patient encounter procedure Mila Andino APRN.CNP Work Phone: Neurology Comment on above: Essential tremor (Pr imary Dx); S/P deep brain stimulator placement; Anxiety APPOINTMENT CANCELLE D (Primary Dx) Start: 10-17-2022 End: 10-17-2022 ambulatory Tyler Ulrich Other [employer] Other Start: 10-17-2022 Office outpatient vi sit 15 minutes Tyler Ulrich [facility] Urgent [facility] Start: [...] Start: 04-20-2022 End: 04-21-2022 ambulatory Shayla Mirza Facility:[facility] Start: 03-22-2022 Telephone encounter Mila mejia APRN.CNP Work Phone: [facility] Comment on above: Patient Request Start: 03-11-2022 End: 03-13-2022 ambulatory Kyler Wood Facility:[facility] Start: 02-15-2022 End: 02-15-2022 ambulatory Ny Schwerer Other [employer] Other Start: 02-15-2022 Telephone encounter Ny Schwerer [facility] Start: 02-09-2022 End: 02-09-2022 ambulatory Ny Schwerer Other [employer] Other Start: 02-09-2022 Telephone encounter Ny Schwerer [facility] Start: 01-16-2022 End: 01-16-2022 ambulatory Ny Schwerer Other [employer] Other Start: 01-16-2022 Office outpatient vi sit 10 minutes Ny Schwerer [facility] Start: 12-19-2021 End: 12-19-2021 ambulatory Ny Schwerer Other [employer] Other Start: 12-19-2021 Telephone encounter Ny Matsonerer [facility] Start: 2021 End: 2021 ambulatory Ny Schwerer Other [employer] Other Start: 2021 Telephone encounter Ny Schwerer [facility] Start: 10-18-2021 End: 10-18-2021 ambulatory Ny Schwerer Other [facility] Other Start: 10-18-2021 Office outpatient vi sit 25 minutes Ny Schwerer [facility] Start: 09-11-2021 End: 09-11-2021 ambulatory Young [place] Other [employer] Other Start: 09-11-2021 Office outpatient vi sit 15 minutes Young [place] [facility] Start: 08-15-2018 End: 08-15-2018 Patient encounter RIGO MARTIN Facility:[facility] Start: 04-06-2017 End: 04-07-2017 Ambulatory LUAN Jorge [facility] Facility: Procedures Date Procedure Procedure Detail Performing Clinician Start: 07-19-2023 Adult depression screening assessment Jun Carrasco MD Work Phone: Start: 05-02-2022 Adult depression screening assessment Stacy Jones MD Work Phone: Start: 10-06-2021 Adult depression screening assessment Mila Andino APRN.POCKET CUTTER Work Phone: Start: 02-29-2016 H/O: surgery S/P deep brain stimulator placement Mila Andino APRN.POCKET CUTTER Work Phone: H/O: surgery S/P deep brain stimulator placement Mila Andino APRN.POCKET CUTTER Work Phone: H/O: surgery S/P deep brain stimulator placement Mila Andino APRN.POCKET CUTTER Work Phone: H/O: surgery S/P deep brain stimulator placement Mila Andino STATION ENGINEER CHIEF.POCKET CUTTER Work Phone: H/O: surgery S/P deep brain stimulator placement Mila Andino STATION ENGINEER CHIEF.POCKET CUTTER Work Phone: H/O: surgery S/P deep brain stimulator placement Mila Andino STATION ENGINEER CHIEF.POCKET CUTTER Work Phone: H/O: surgery S/P deep brain stimulator placement Mila Andino STATION ENGINEER CHIEF.POCKET CUTTER Work Phone: H/O: surgery S/P deep brain stimulator placement Mila Andino STATION ENGINEER CHIEF.POCKET CUTTER Work Phone: H/O: surgery S/P deep brain stimulator placement Rasheed Lucas MD Work Phone: Plan of Treatment Date Care Activity Detail Author Start: 06-29-2026 [facility] Start: 05-05-2025 Medicare Annual Well ness (AWV) Medicare Annual Wellness (AWV) [facility] Start: 02-16-2025 End: 02-16-2025 Patient encounter procedure 02/16/2025 11:00 AM EDT Office Visit Neurology [address] [address] Mila Andino APRN.POCKET CUTTER [address] [place] [address] dbs adjuestment Neurology Comment on above: dbs adjuestment Start: 01-22-2025 End: 01-22-2025 Patient encounter procedure 01/22/2025 9:10 AM EDT Procedure Visit [facility] [address] [facility] [address] [place] [address] Nish Cruz DPM [address] [facility] [address] [place] [address] [facility] Start: 11-21-2024 DIABETES SCREEN DIABETES SCREEN [facility] Start: 11-06-2024 End: 11-06-2024 Patient encounter procedure [facility] Comment on above: Rheumatoid arthritis of other site, unspecified whether rheumatoid factor present ([facility]/HCC) (Primary Dx); Pain due to onychomycosis of toenails of both feet Start: 10-20-2024 End: 10-20-2024 Patient encounter procedure 10/20/2024 10:30 AM EST Office Visit [facility] [address] [facility] [address] [place] [address] Rasheed Lucas MD [address] [facility] [address] [place] [address] [facility] Start: 10-16-2024 End: 10-16-2024 Patient encounter procedure 10/16/2024 8:40 AM EST Procedure Visit [facility] [address] [facility] [address] [place] [address] Nish Cruz DPM [address] [facility] [address] [place] [address] [facility] Start: 10-08-2024 End: 10-08-2024 ambulatory 10/08/2024 1:00 PM EST Treatment [facility] [address] [facility] [address] [place] [address] Irwin Douglass, SADDLE LINING STITCHER [facility] Start: 10-06-2024 End: 10-06-2024 ambulatory 10/06/2024 10:00 AM EST Treatment [facility] [address] [facility] [address] [place] [address] Svetlana Carrera, PT [facility] Start: 10-06-2024 End: 10-06-2024 Patient encounter procedure 10/06/2024 9:00 AM EST Office Visit [facility] [address] [facility] [address] [place] [address] Rasheed Lucas MD [address] [facility] [address] [place] [address] [facility] Start: 10-01-2024 End: 10-01-2024 ambulatory [facility] Comment on above: Arrived Start: 09-29-2024 End: 09-29-2024 ambulatory [facility] Comment on above: Arrived Start: 09-24-2024 End: 09-24-2024 ambulatory [facility] Comment on above: Arrived Start: 09-22-2024 End: 09-22-2024 ambulatory 09/22/2024 11:00 AM EST Treatment [facility] [address] [place] [place] [address] Svetlana Carrera, PT [facility] Start: 09-17-2024 End: 09-17-2024 ambulatory 09/17/2024 12:30 PM EST Treatment [facility] [address] [place] [address] Irwin Douglass, SADDLE LINING STITCHER [facility] Start: 09-17-2024 End: 09-17-2024 ambulatory 09/17/2024 10:30 AM EST Treatment [facility] [address] [place] [address] Irwin Douglass, SADDLE LINING STITCHER [facility] Start: 09-15-2024 End: 09-15-2024 ambulatory 09/15/2024 12:30 PM EST Treatment [facility] [address] [place] [address] Irwin Douglass, SADDLE LINING STITCHER [facility] Start: 09-10-2024 End: 09-10-2024 ambulatory [facility] Comment on above: Arrived Start: 09-08-2024 End: 09-08-2024 ambulatory [facility] Comment on above: Arrived Start: 09-06-2024 Adult BMI Screening Adult BMI Screen ing [facility] Start: 09-06-2024 Tobacco Screening Tobacco Screening [facility] Start: 09-03-2024 End: 09-03-2024 ambulatory [facility] Comment on above: Arrived Start: 09-01-2024 End: 09-01-2024 ambulatory 09/01/2024 11:00 AM EDT Evaluation [facility] [address] [place] [address] Svetlana Carrera, PT Arrived [facility] Comment on above: Arrived Start: 08-18-2024 End: 08-18-2024 Patient encounter procedure [facility] Comment on above: DBS Adjustment Start: 07-19-2024 Depression Screening Depression Scre ening [facility] Start: 07-19-2024 Fall Risk Screening Fall Risk Screen ing [facility] Start: 07-19-2024 Medicare Annual Well ness Visit Medicare Annual Wellness Visit [facility] Start: 07-06-2024 COVID-19 Vaccine () COVID-19 Vaccine () [facility] Start: 07-06-2024 Covid-19 Vaccine () Covid-19 Vaccine () [facility] Start: 07-06-2024 Influenza vaccination [facility] Start: 04-09-2024 End: 04-09-2024 Patient encounter procedure 04/09/2024 3:00 PM EDT Office Visit Neurology [address] [phone] Mila Andino, STATION ENGINEER CHIEF.POCKET CUTTER [address] [place] [address] DBS adjustment Neurology Comment on above: DBS adjustment Start: 03-04-2024 End: 06-03-2024 25-hydroxyvitamin D3 [Mass/volume] in Serum or Plasma VITAMIN D 25 HYDROXY Lab Routine Anxiety Cognitive impairment Vitamin D deficiency Expected: 03/04/2024, Expires: 06/03/2024 [facility] Comment on above: Expected: 03/04/2024 , Expires: 06/03/2024 Start: 03-04-2024 End: 06-03-2024 CBC W Auto Differential panel - Blood COMPLETE BLOOD COUNT AND DIFFERENTIAL Lab Routine Anxiety Abnormality of gait Cognitive impairment Expected: 03/04/2024, Expires: 06/03/2024 [facility] Comment on above: Expected: 03/04/2024 , Expires: 06/03/2024 Start: 03-04-2024 End: 06-03-2024 Comprehensive metabolic 2000 panel - Serum or Plasma COMPREHENSIVE METABOLIC PANEL Lab Routine Essential tremor Anxiety Abnormality of gait Cognitive impairment Expected: 03/04/2024, Expires: 06/03/2024 [facility] Comment on above: Expected: 03/04/2024 , Expires: 06/03/2024 Start: 03-04-2024 End: 06-03-2024 Folate [Mass/volume] in Serum or Plasma FOLATE, SERUM Lab Routine Anxiety Abnormality of gait Cognitive impairment Expected: 03/04/2024, Expires: 06/03/2024 [facility] Comment on above: Expected: 03/04/2024 , Expires: 06/03/2024 Start: 03-04-2024 End: 06-03-2024 Thyrotropin [Units/volume] in Serum or Plasma THYROID STIMULATING HORMONE Lab Routine Anxiety Cognitive impairment Expected: 03/04/2024, Expires: 06/03/2024 [facility] Comment on above: Expected: 03/04/2024 , Expires: 06/03/2024 Start: 03-04-2024 End: 06-03-2024 VITAMIN B12 W/REFLEX VITAMIN B12 W/REFLEX Lab Routine Anxiety Abnormality of gait Cognitive impairment Expected: 03/04/2024, Expires: 06/03/2024 [facility] Work Phone: Comment on above: Expected: 03/04/2024 , Expires: 06/03/2024 Start: 12-27-2023 Covid-19 Vaccine ( season) Covid-19 Vaccine () [facility] Start: 11-05-2023 Advance Directive Discussion Advance Directive Discussion [facility] Start: 07-06-2023 Influenza vaccination [facility] Start: 05-02-2023 Adult depression screening assessment DEPRESSION SCREENING [facility] Start: 11-05-2022 ADVANCE DIRECTIVE DISCUSSION ADVANCE DIRECTIVE DISCUSSION [facility] Start: 11-05-2022 DEPRESSION ASSESSMENT DEPRESSION ASS ESSMENT [facility] Start: 10-06-2022 Adult depression screening assessment DEPRESSION SCREENING [facility] Start: 07-06-2022 Influenza vaccination [facility] Start: 04-14-2022 COVID-19 VACCINE (5 - Booster for Moderna series) COVID-19 VACCINE (5 - Booster for Moderna series) [facility] Start: 12-28-2021 COVID-19 VACCINE (4 - Booster for Moderna series) COVID-19 VACCINE (4 - Booster for Moderna series) [facility] Start: 2021 RSV Vaccine (1 - 1-d ose 75+ series) RSV Vaccine (1 - 1-dose 75+ series) [facility] Start: 11-05-2021 ADVANCE DIRECTIVE DISCUSSION ADVANCE DIRECTIVE DISCUSSION [facility] Start: 11-05-2021 DEPRESSION ASSESSMENT DEPRESSION ASS ESSMENT [facility] Start: 2011 PNEUMOCOCCAL: 65+ (1 - PCV) PNEUMOCOCCAL: 65+ (1 - PCV) [facility] Start: 2011 PNEUMOVAX AGE 65 AND OVER WITH 5YR LOOKBACK (#1) PNEUMOVAX AGE 65 AND OVER WITH 5YR LOOKBACK (#1) [facility] Start: 2006 RSV Vaccine (1 - 1-d ose 60+ series) RSV Vaccine (1 - 1-dose 60+ series) [facility] Start: 1996 Administration of varicella zoster vaccine Zoster (Shingles) Vaccine (1 of 2) [facility] Start: 1996 SHINGRIX VACCINE (1 of 2) SHINGRIX VACCINE (1 of 2) [facility] Start: 1991 COLOGUARD (FIT-DNA) COLOGUARD (FIT-D NA) [facility] Start: 1991 Colonoscopy COLONOSCOPY [facility] Start: 1991 COLORECTAL CANCER SCREENING COLORECTAL CANCER SCREENING [facility] Start: [address] [facility] Start: 1991 FECAL OCCULT BLOOD FECAL OCCULT BLOO D [facility] Start: 1991 SIGMOIDOSCOPY SIGMOIDOSCOPY [facility] Start: 1981 LIPID SCREEN LIPID SCREEN [facility] Start: 1965 DTaP,Tdap and Td Vaccines (1 - Tdap) DTaP,Tdap and Td Vaccines (1 - Tdap) [facility] Start: 1965 Urine microalbumin profile [facility] Start: 1964 Adult BMI Follow Up Plan Adult BMI Follow Up Plan [facility] Start: 1964 Anxiety Screening Anxiety Screening [facility] Start: 1964 Depression Screening Depression Scre ening [facility] Start: 1964 HEPATITIS C SCREENING HEPATITIS C [facility] Start: 1964 Hepatitis C screening Hepatitis C [facility] [place] [facility] [place] [facility] Immunizations Immunization Date Immunization Notes Care Provider Flakito chen 09-10-2024 SARS-COV-2 (COVID-19 ) vaccine, mRNA, spike protein, LNP, PF, 50 mcg/0.5 mL Irwin Douglass [facility] 01-14-2021 COVID-19 Vaccine Moderna - Documentation Purposes Only Young Dean Other [facility] 12-17-2020 COVID-19 Vaccine Moderna - Documentation Purposes Only Young Dean Other [facility] 09-18-2018 pneumococcal polysaccharide vaccine, 23 valent Jun Carrasco MD Work Phone: [employer] 08-30-2015 pneumococcal conjuga te vaccine, 13 valent Young Dean Other [facility] Other 08-05-2015 pneumococcal polysaccharide vaccine, 23 valent Young Dean Other [facility] Other Payers Date Payer Category Payer Unknown AARP AARP [id number] [id number] 2022-Present [address] [place] [address] [id number] 2022 Self-pay 2017 Private Health Insurance [facility] AARP SUPPLEMENT [id number] 2017-Present [phone] [address] [place] [address] Indemnity [id number] 2017 Unknown [id number] 2015 Managed Care Other (unspecified) [facility] [id number] 2015 Private Health Insurance [id number]. [id number] 2012 Medicare MEDICARE MEDICAR E A AND B [id number] 2012-Present [phone] [address] [address] [place] [address] Medicare [id number] 2012 Medicare [id number] 2.16.840.1.138268.19 2011 Medicare [id number]. 1.13.159.2. [id number] 1959 Medicare [id number] 1946 Unknown [id number] 2.16.840.1.339301.3.579.2. 355 1946 Unknown [id number] 2.16.840.1.646073.3.579.2. 1259 1946 Unknown [id number] 2.16.840.1.966551.3.579.2. 9 1946 Unknown [id number] 2.16.840.1.298946.3.579.2. 9 1946 Unknown [id number] 2.16.840.1.794454.3.579.2. 125 1946 Unknown [id number] 2.16.840.1.489947.3.579.2. 1258 1946 Unknown [id number] 2.16.840.1.065683.3.579.2. 1258 1946 Unknown [id number] 2.16.840.1.365123.3.579.2. 1258 1946 Unknown [id number] 2.840.1.661378.3.579.2. 1258 1946 Unknown [id number] 2..840.1.099954.3.579.2. 1258 1946 Unknown [id number] 2.840.1.462284.3.579.2. 1258 1946 Unknown [id number] 2.840.1.950236.3.579.2. 1258 1946 Unknown [id number] 2.840.1.760342.3.579.2. 1258 1946 Unknown [id number] 2.840.1.883875.3.579.2. 1258 1946 Unknown [id number] 2.840.1.527653.3.579.2. 1258 1946 Unknown [id number] 2.840.1.667671.3.579.2. 1258 1946 Unknown [id number] 2.840.1.006585.3.579.2. 1258 1946 Unknown [id number] 2.840.1.431530.3.579.2. 1258 1946 Unknown [id number] 2.16.840.1.716250.3.579.2. 1258 1946 Unknown [id number] 2.16840.1.384386.3.579.2. 1258 1946 Unknown [id number] 2.16.840.1.962381.3.579.2. 1259 1946 Unknown [id number] 2.16.840.1.440052.3.579.2. 9 1946 Unknown [id number] 2.16.840.1.203679.3.579.2. 9 1946 Unknown [id number] 2.16.840.1.012857.3.579.2. 1258 1946 Unknown [id number] 2.16.840.1.370731.3.579.2. 1259 1946 Unknown [id number] 2.16.840.1.686331.3.579.2. 1258 1946 Unknown [id number] 2.16.840.1.385235.3.579.2. 1258 1946 Unknown [id number] 2.16.840.1.312808.3.579.2. 1258 1946 Unknown [id number] 2.16.840.1.865346.3.579.2. 1258 1946 Unknown [id number] 2.16.840.1.666244.3.579.2. 1259 Unknown [id number] 2.16.840.1.825316.3.579.2. 531 Unknown [id number] 2.16.840.1.228515.3.579.2. 531 Unknown [facility] [id number] Social History Date Type Detail Facility Start: 03-16-2014 End: 05-02-2017 Tobacco smoking status NHIS Ex-smoker [facility] Start: 11-05-1969 End: 11-05-1994 History of tobacco use Current smoker [facility] Start: 11-05-1969 End: 11-05-1994 History of tobacco use Cigarette Smoker [facility] Start: 03-16-2014 End: 12-16-2020 Cigarettes smoked current (pack per day) - Reported 1 [facility] Start: 03-16-2014 End: 04-26-2023 Tobacco use and exposure Smokeless tobacco non-user [facility] Start: 01-06-2022 End: 09-06-2023 Alcohol intake Current non-drinker of alcohol (finding) [facility] Start: 02-24-2015 History SDOH Alcohol Comment quit 1991 [facility] Start: 1945 Sex Assigned At Not on file [facility] Start: 12-16-2020 End: 09-04-2023 Sex Assigned At [facility] Start: 04-22-2022 End: 08-10-2022 Exposure to SARS-CoV-2 (event) Not sure [facility] Adult Depression Screening Assessment 0 [facility] Start: 1945 Sex Assigned At Male P [employer] [facility] History of tobacco use Passive smoker [facility] Start: 06-17-2024 End: 11-06-2024 Alcoholic beverage intake Lifetime non-drinker (finding) [facility] Start: 08-09-2024 Tobacco smoking stat [facility] Never smoked tobacco (finding) [facility] Start: 06-10-2015 Sex Male (finding) [facility] Medical Equipment Procedure Code Equipment Code Equipment Origin al Text Equipment Identifier Dates Stretch-Coil Dbs Extension 60 - [id number] Start: 05-15-2014 Lead Nrstm 40cm Actv Dbs - [id number] Start: 05-05-2014 Comment on above: Description: LEAD ON LY Ipg Activa Sc Db s Coil Extn - [id number] Start: 05-15-2014 Neurostimulator Activa Sc 0-10.5v 2-250hz 0-25.5ma 2.4inx2.2in .4in - [id number] Start: 12-14-2017 Neurostimulator Activa Rc 10.5-V 2-250hz 2.2inx2.2in .4in Implantable 2 - [id number] Start: 01-06-2022 Stent Uret 6fr 2 6cm W/O Gw Inl - [id number]_[facility] Start: 02-25-2015 Comment on above: Description: no stri ng Stent Uret 6fr 2 6cm W/O Gw Inl - [id number] Start: 02-25-2015 Stent Uret 6fr 2 6cm W/O [facility] - [id number] Start: 03-11-2015 Stent Uret 6fr 2 6cm W/O [facility] - [id number] Start: 03-11-2015 Clinical Notes 09-11-2021 to 11-06-2024 Nish Cruz DPM - 11/06/2024 9:10 AM Johnnie Lucas MD - 10/20/2024 10:58 AM Johnnie Lucas MD - 10/20/2024 10:53 AM Johnnie Lucas MD - 10/20/2024 10:52 AM ESTPatient Instructions Note Date & Type Note Facility 11-06-2024 History of Present illness Narrative Patient: Yordan [...] mg by mouth Daily, Disp: , Rfl: baclofen (Lioresal) 10 MG tablet, Take 1 tablet (10 mg) by mouth in the morning and 1 tablet (10 mg) in the evening and 1 tablet (10 mg) before bedtime., Disp: 90 tablet, Rfl: 0 busPIRone (Buspar) 10 MG tablet, Take 10 [...] tablet (10 mg) by mouth Daily, Disp: 100 tablet, Rfl: 3 cholecalciferol 125 MCG (5000 UT) capsule, TAKE [...] Social History Narrative Not on file Social Drivers of Health Financial Resource Strain: Not on file Food Insecurity: No Food Insecurity (05/22/2023) Received from [facility], [facility], [facility] Hunger Screening Within the past 12 months [...] other site, unspecified whether rheumatoid factor present (CMS/[facility]) 2. Pain due to onychomycosis of toenails of both feet PLAN Discussed proper foot care with patient today. Debride nails in length and thickness digits 1 through 10 Patient can use vgdz-fcc-zxwphyz creams daily to feet Nish Cruz DPM documented in this encounter [facility] 10-20-2024 History of Present illness Narrative Associated Problem(s): S/P deep brain stimulator placement Sees Dr. Treadwell every 6 months Associated Problem(s): Strain of lumbar region Was given Valium by ER Add Baclofen Stretching exercises Had been to therapy a few weeks ago Associated Problem(s): Tremor Will need referral to neurology Subjective Patient ID: Yordan Marroquin is a 78 y.o. male who presents for Tremors. Pt is here for two week follow up was given medication for tremors Pt went to ER [facility] yesterday due to lumbar strain and was taken off klonopin ( taken for about a week this did not help pt), but he went for muscle spasms was given valium (not picked up yet) And also given zofran and abx for his viral infection, Current Outpatient Medications on File Prior to [...] 20 mg by mouth in the morning. [DISCONTINUED] clonazePAM (KlonoPIN) 0.5 MG tablet Take 1 tablet (0.5 mg) by mouth in the morning and 1 tablet (0.5 mg) before bedtime. 60 tablet 0 No current facility-administered medications on file prior [...] OTHER SURGICAL HISTORY Left cubital tunnel release DC REMOVAL OF KIDNEY STONE TOTAL KNEE ARTHROPLASTY Right Visit Vitals BP 102/68 Pulse 91 Ht 6' 2 Wt 217 lb SpO2 97% BMI 27.86 kg/m Smoking Status Former BSA 2.27 m Review of Systems Musculoskeletal: Positive for back pain. Muscle spasms To lower back Neurological: Positive for tremors. Objective Physical Exam Vitals reviewed. Constitutional: Appearance: Normal appearance. HENT: Head: Normocephalic. Cardiovascular: Rate and Rhythm: Normal rate and regular rhythm. Pulses: Normal pulses. Pulmonary: Effort: Pulmonary effort is normal. Breath sounds: Normal breath sounds. Neurological: General: No focal deficit present. Mental Status: He is alert and oriented to person, place, and time. Motor: Tremor present. Comments: Tremor to head Minimal to hands Psychiatric: Mood and Affect: Mood normal. Assessment/Plan Problem List Items Addressed This Visit S/P deep brain stimulator placement Sees Dr. Treadwell every 6 months Tremor - Primary Will need referral to neurology Relevant Orders Ambulatory referral to Neurology Strain of lumbar region Was given Valium by ER Add Baclofen Stretching exercises Had been to therapy a few weeks ago Relevant Medications baclofen (Lioresal) 10 MG tablet Other Relevant Orders Ambulatory referral to Neurology No follow-ups on file. documented in this encounter [facility] 10-07-2024 Telephone encounter Note He called and cx his PT tomorrow. I noted tomorrow was his last PT and he due to change of medication, he spoke to [facility], and was advised it would be ok to take a month or 2 off. I told him if needed not to hesitate. [facility] 10-07-2024 Miscellaneous Notes He called and cx his PT tomorrow. I noted tomorrow was his last PT and he due to change of medication, he spoke to [facility], and was advised it would be ok to take a month or 2 off. I told him if needed not to hesitate. documented in this encounter [facility] 10-06-2024 History of Present illness Narrative [...] unable to schedule MRI until February at [facility] due to DBS. Pt states [...] supine prior to manual therapy (unavailable)(spoke with NETWORK TECHNICIAN office who approved moist heat) Assessment: Pt [...] be instructed in home exercise program (Met). 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 Date: documented in this encounter [facility] 10-06-2024 History of Present illness Narrative [...] he would like to have done at [facility] Pt states his balance has been [...] OTHER SURGICAL HISTORY Left cubital tunnel release DC REMOVAL OF KIDNEY STONE TOTAL KNEE ARTHROPLASTY [...] follow-ups on file. documented in this encounter [facility] 09-24-2024 Telephone encounter Note See telephone encounter 09/23/24 [facility] 09-24-2024 Miscellaneous Notes See telephone [...] appointments for a DBS adjustment at the [facility] and the patients declined and stated they only want to come to [facility]. Please advise. documented in this encounter [facility] 09-23-2024 Telephone encounter Note He has the ability to go up on the DBS or he can switch back to the settings he came in on last time (Group A) since they felt it was better. I will have him contacted about this and then we can bring him in when I have an appointment available. PHILIP Rouse [facility] 09-23-2024 Miscellaneous Notes He has the ability to go up on the DBS or he can switch back to the settings he came in on last time (Group A) since they felt it was better. I will have him contacted about this and then we can bring him in when I have an appointment available. PHILIP Rouse calling to say that since last DBS adjustment, Elier is shaking more. She wants to be seen again BETHANIE. She requests a message be sent to Mila about this. documented in this encounter [facility] 09-23-2024 Telephone encounter Note Patients [...] appointments for a DBS adjustment at the [facility] and the patients declined and stated they only want to come to [facility]. Please advise. [facility] 09-23-2024 Telephone encounter Note calling to say that since last DBS adjustment, Elier is shaking more. She wants to be seen again BETHANIE. She requests a message be sent to Mila about this. [facility] 09-22-2024 History of Present illness Narrative Physical [...] unable to schedule MRI until February at [facility] due to DBS. Pt states [...] manual therapy x 10 mins (spoke with NETWORK TECHNICIAN office who approved moist heat) Assessment: Pt [...] to be instructed in home exercise program. 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 Date: documented in this encounter [facility] 09-17-2024 History of Present illness Narrative [...] unable to schedule MRI until February at [facility] due to DBS. Pt states [...] manual therapy x No heat (spoke with NETWORK TECHNICIAN office who approved moist heat) Assessment: Pt [...] Outcome Measure: Lower Extremity Functional Scale (LEFS): 2480 Rehab Diagnosis: neck pain; difficulty walking; falls Short Term Goal: To be met in 2 weeks Goal 1: Pt to be instructed in home exercise program. Meat Manager Goals: To be met in 10 weeks [...] 1:10 PM EST documented in this encounter [facility] 09-15-2024 History of Present illness Narrative [...] unable to schedule MRI until February at [facility] due to DBS. Pt states [...] manual therapy x No heat (spoke with NETWORK TECHNICIAN office who approved moist heat) Assessment: Pt [...] to be instructed in home exercise program. Senior Living Goals: To be met in 10 weeks [...] Please sign below. Date: Cosigned by Svetlana Carrera PT at 09/19/2024 1:08 PM EST documented in this encounter [facility] 09-08-2024 History of Present illness Narrative [...] unable to schedule MRI until February at [facility] due to DBS. Pt states [...] manual therapy x 10 mins (spoke with NETWORK TECHNICIAN office who approved moist heat) Assessment: Pt has completed 3 PT sessions for tremors and balance. Added moist HP this date prior to manual therapy. Will progress toward postural strengthening ex as pain allows. Outcome Measure: Lower Extremity Functional Scale (LEFS): 2480 Rehab Diagnosis: neck pain; difficulty walking; falls Short Term Goal: To be met in 2 weeks Goal 1: Pt to be instructed in home exercise program. Senior Living Goals: To be met in 10 weeks [...] sign below. Date: documented in this encounter [facility] 09-03-2024 Telephone encounter Note Scot would like to know if it is it ok to use moist hot pack on neck Right VIM DBS implanted in 2013 [facility] 09-03-2024 Miscellaneous Notes Scot would like to know if it is it ok to use moist hot pack on neck Right VIM DBS implanted in 2013 Scot from [facility] PT phoned regarding questions about pt's DBS. [phone] documented in this encounter [facility] 09-03-2024 Telephone encounter Note Scot from [facility] PT phoned regarding questions about pt's DBS. [phone] [facility] 09-03-2024 History of Present illness [...] unable to schedule MRI until February at [facility] due to DBS. Pt states [...] is more sore. Pain today rates about 7/10. Pain: 7/10 Objective: PT Evaluation (09/01/2024) Functional Mobility: Gait: [...] to be instructed in home exercise program. 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 Date: documented in this encounter [facility] 09-01-2024 History of Present illness Narrative [...] unable to schedule MRI until February at [facility] due to DBS. Pt states he has had one fall since he was seen last in therapy. Pt states botox shots were completed to help with neck pain and spasms; however, pt without relief. Wearing supportive devices as needed for home; pt states neck does not tremor when supported; only when upright. Precautions: Falls, DBS Subjective: neck pain Pain: 7-8 Objective: PT Evaluation (09/01/2024) Functional Mobility: Gait: [...] to be instructed in home exercise program. Senior Living Goals: To be met in 10 weeks [...] sign below. Date: documented in this encounter [facility] 08-18-2024 Instructions Mila Andino APRN.CNP - 08/18/2024 2:00 PM EDT It was a [...] or you can send a message through [employer]. You can also now schedule and select appointments through [facility]. Mila Andino APRN.LAURIE documented in this encounter [facility] 08-18-2024 Note HNO ID: [id number] Author: MILA ANDINO APRN.CNP Service: ? Author [...] V 60uS 135-150Hz Gradually better but similar [id number] being the best 2-3+ 3.8 V 60uS [...] a little more (more content not included)... [facility] 08-18-2024 Procedure note DBS programming: Right [...] V 60uS 135-150Hz Gradually better but similar [id number] being the best 2-3+ 3.8 V 60uS [...] his eye started closing but then relaxed. [facility] 08-18-2024 Procedure note DBS programming: [...] V 60uS 135-150Hz Gradually better but similar [id number] being the best 2-3+ 3.8 V 60uS [...] but then relaxed. documented in this encounter [facility] 08-18-2024 Note HNO ID: [id number] Author: MILA ANDINO APRN.LAURIE Service: ? Author Type: Nurse Practitioner Type: Progress Notes Filed: 08/24/2024 19:07 Note Text: [facility] - FOLLOW UP EVALUATION Ny Hoyos DO [address] [place] [address] Dear Ny Hoyos DO: I had the [...] (FLONASE) 50 mcg/actuation nasal spray Use 1 Kite in each nostril once daily. docusate sodium [...] is 28.22 kg/m?. Movement Disorders Scales Performed: Lkbf-Zgfvfj-Svoah Tremor Scale Medication OFF/ON Time of Assessment [...] will let me (more content not included)... [facility] 08-18-2024 History of Present illness Narrative [facility] - FOLLOW UP EVALUATION Ny Hoyos DO [address] [place] [address] Dear Ny Hoyos DO: I had the [...] (FLONASE) 50 mcg/actuation nasal spray Use 1 Kite in each nostril once daily. docusate sodium [...] 28.22 kg/m . Movement Disorders Scales Performed: Aqcy-Mhiysg-Iuipo Tremor Scale Medication OFF/ON Time of Assessment [...] or around: 02/16/25 Level of service : 16109 (20-29 min). Time spent 26 min on the day of service, which included preparing to see the patient, mckv-bs-vvvl patient care, completing clinical documentation, obtaining and/or [...] speech changes and gait changes. Mila Andino APRN.POCKET CUTTER documented in this encounter [facility] 08-07-2024 History of Present illness [...] Insecurity: No Food Insecurity (05/22/2023) Received from [facility], [facility], [facility] Hunger Screening Within the past 12 months [...] other site, unspecified whether rheumatoid factor present ([facility]) 2. Onychomycosis 3. Toe pain, bilateral PLAN Discussed proper foot care with patient today. Debride nails in length and thickness digits 1 through 10 Patient can use evqb-sie-uwcztwn creams daily to feet Nihs Cruz DPM documented in this encounter [facility] 08-05-2024 Telephone encounter Note Per appt desk, Patient is scheduled for DBS adjustment on 08/18/2024. February appoint can be scheduled after this visit. Soumya Hugo [facility] 08-05-2024 Miscellaneous Notes Per appt [...] appts. Soumya Hugo documented in this encounter [facility] 04-22-2024 Telephone encounter Note Per office visit on 04/22/2024, patient will be due for DBS adjustment around 02/03/2025. Provider's schedule not released past 12/05/2024 at this time. Recall letter generated for 07/23/2024. Patient requesting we call him to schedule appointment. Patient states he prefers afternoon appts. Soumya Hugo [facility] 04-22-2024 Instructions Mila Andino APRN.LAURIE - 04/22/2024 [...] or you can send a message through [facility]. You can also now schedule and select appointments through [facility]. Mila Andino APRN.POCKET CUTTER documented in this encounter [facility] 04-22-2024 Note HNO ID: [id number] Author: MILA ANDINO APRN.CNP Service: ? Author [...] improved and h (more content not included)... [facility] 04-22-2024 Procedure note DBS programming: Right [...] his eye started closing but then relaxed. [facility] 04-22-2024 Procedure note DBS programming: [...] but then relaxed. documented in this encounter [facility] 04-22-2024 Note HNO ID: [id number] Author: MILA ANDINO APRN.CNP Service: ? Author Type: Nurse Practitioner Type: Progress Notes Filed: 04/22/2024 18:48 Note Text: [facility] - FOLLOW UP EVALUATION Ny Hoyos DO [address] [place] [address] Dear Ny Hoyos DO: I had the [...] Allergies Unknown Current Outpatient Medications Medication Sig bsvueif-qgajzcgla-mpslyzv D3 500 mg-5 mcg (200 unit) per tablet Take 1 tablet by mouth. T9-lhvst-T23W12-wwwjas-xtczbagygy (NEURIVA PLUS BRAIN PERFORMANCE) 1.7 mg-400 mcg- [...] (FLONASE) 50 mcg/actuation nasal spray Use 1 Kite in each nostril once daily. docusate sodium [...] is 27.6 kg/m?. Movement Disorders Scales Performed: Zjbd-Ucaayo-Ottqf Tremor Scale Face Tremor At Rest: 0 - None. Tongue Tremor At Rest: Posture Holdin (more content not included)... [facility] 04-22-2024 History of Present illness Narrative [facility] - FOLLOW UP EVALUATION Ny Hoyos DO [address] [place] [address] Dear Ny Hoyos DO: I had the [...] Allergies Unknown Current Outpatient Medications Medication Sig rcvkjac-aizwpiorh-naehlqf D3 500 mg-5 mcg (200 unit) per tablet Take 1 tablet by mouth. A4-fabwd-W67K37-fliyvv-dbujmhpars (NEURIVA PLUS BRAIN PERFORMANCE) 1.7 mg-400 mcg- [...] (FLONASE) 50 mcg/actuation nasal spray Use 1 Kite in each nostril once daily. docusate sodium [...] 27.6 kg/m . Movement Disorders Scales Performed: Bffn-Uofxjj-Hmyld Tremor Scale Face Tremor At Rest: 0 [...] or around: 02/03/25 Level of service : 17535 (20-29 min). Time spent 20 min on the day of service, which included preparing to see the patient, ndbn-kh-zyzb patient care, completing clinical documentation, obtaining and/or reviewing separately obtained history, performing a medically appropriate examination, and counseling and educating the patient/family/caregiver. This does not include DBS analysis and/or programming time. Mila Andino APRN.POCKET CUTTER documented in this encounter [facility] 04-09-2024 Telephone encounter Note At appointment time, 3p, pt was not checked in. Went to lobby/waiting room and hallway to call for pt. Pt was not in either location. [facility] 04-09-2024 Miscellaneous Notes At appointment time, 3p, pt was not checked in. Went to lobby/waiting room and hallway to call for pt. Pt was not in either location. documented in this encounter [facility] 03-05-2024 Telephone encounter Note I reviewed the labs and these are wnl except his Vit D level is still low. I will have him contacted to follow up with his primary care provider about this and then the labs will be faxed to the primary care provider as well. PHILIP Rouse [facility] 03-05-2024 Miscellaneous Notes I reviewed [...] available in CareEverywhere. documented in this encounter [facility] 03-05-2024 Telephone encounter Note Pt's called to report that he had labs done yesterday at outside facility. Looks like they are available in CareEverywhere. [facility] 03-04-2024 Instructions Mila Andino APRN.CNP [...] or you can send a message through [facility]. You can also now schedule and select appointments through [facility]. Mila Andino APRN.POCKET CUTTER documented in this encounter [facility] 03-04-2024 History of Present illness Narrative [facility] - FOLLOW UP EVALUATION Ny Hoyos DO [address] [place] [address] Dear Ny Hoyos DO: I had the [...] (FLONASE) 50 mcg/actuation nasal spray Use 1 Kite in each nostril once daily. docusate sodium (COLACE) 100 mg capsule Take 1 capsule by mouth twice daily as needed for Constipation. H8-djjtq-E95L03-ymqhoz-jgzlwisldq (NEURIVA PLUS BRAIN PERFORMANCE) 1.7 mg-400 mcg- [...] 27.82 kg/m . Movement Disorders Scales Performed: [place] Cognitive Assessment (MoCA) Visuospatial/Executive 2 Naming 3 Attention 6 Language 0 Abstraction 1 Delayed Memory 2 Orientation 6 Education < or equal to 12 years (1 is true, 0 is false) 1 MoCA Total Score 21 Uasv-Feumbq-Tnyal Tremor Scale Voice Tremor Action and Intention: [...] Mila Andino APRN.LAURIE documented in this encounter [facility] 03-04-2024 Note HNO ID: [id number] Author: MILA ANDINO APRN.LAURIE Service: ? Author [...] is the be (more content not included)... [facility] 03-04-2024 Note HNO ID: [id number] Author: MILA ANDINO APRN.POCKET CUTTER Service: ? Author Type: Nurse Practitioner Type: Progress Notes Filed: 03/05/2024 12:54 Note Text: [facility] - FOLLOW UP EVALUATION Ny Hoyos DO [address] [place] [address] Dear Ny E Schwerer, DO: I had [...] (FLONASE) 50 mcg/actuation nasal spray Use 1 Kite in each nostril once daily. docusate sodium (COLACE) 100 mg capsule Take 1 capsule by mouth twice daily as needed for Constipation. Y0-autxa-L23G15-ajalkd-inrespgwnf (NEURIVA PLUS BRAIN PERFORMANCE) 1.7 mg-400 mcg- [...] is 27.82 kg/m?. Movement Disorders Scales Performed: [place] Cognitive Assessment (MoCA) Visuospatial/Executive 2 Naming 3 Attention 6 Language 0 Abstraction 1 Delayed Memory 2 Orientation 6 Education < or equal to 12 years (1 is true, 0 is false) 1 MoCA Total Score 21 Hnjp-Dotdou-Nftze Tremor Scale Voice Tremor Action and Intention: [...] RC. He als (more content not included)... [facility] 03-04-2024 Procedure note DBS programming: Right [...] his eye started closing but then relaxed. [facility] 03-04-2024 Procedure note DBS programming: [...] but then relaxed. documented in this encounter [facility] 09-04-2023 Instructions Mila Andino APRN.LAURIE - 09/04/2023 [...] or you can send a message through [facility]. You can also now schedule and select appointments through [facility]. Mila Andino APRN.LAURIE documented in this encounter [facility] 09-04-2023 Procedure note DBS programmin:43am-10:51am [...] but then relaxed. documented in this encounter [facility] 09-04-2023 History of Present illness Narrative [facility] - FOLLOW UP EVALUATION Ny Hoyos DO [address] [facility] [place] [address] Dear Ny Hoyos DO: I had the [...] this with the following steps: -Push the [place] check button and then hold the research programmer up to your battery. -Using the navigator pad at the bottom of your research programmer, push the down arrow to put [...] settings you came in on). -Push the [place] check button and then hold the research programmer up to your battery. You should [...] old settings. He has been going to [employer] three times a week and this is [...] (FLONASE) 50 mcg/actuation nasal spray Use 1 Kite in each nostril once daily. docusate sodium [...] 26.91 kg/m . Movement Disorders Scales Performed: Kdoq-Tmsjai-Rtoor Tremor Scale Face Tremor At Rest: 2 [...] Mila Andino APRN.LAURIE documented in this encounter [facility] 04-11-2023 Miscellaneous Notes Attempted to [...] it. Thanks! Mila documented in this encounter [facility] 04-06-2023 Miscellaneous Notes I spoke [...] don't see anything soon that is available. [phone] documented in this encounter [facility] 04-01-2023 Evaluation note Encounter Date Diagnosis Assessment Notes March, Strain of lumbar region, initial encounter (ICD-10 - S39.012A) Low back pain home care material was printed [employer] Other 04-06-2023 Instructions* Patient Instructions* Mila Andino APRN.POCKET CUTTER - 02/08/2023 1:38 PM EDT It was [...] this with the following steps: -Push the [place] check button and then hold the research programmer up to your battery. -Using the navigator pad at the bottom of your research programmer, push the down arrow to put [...] settings you came in on). -Push the [place] check button and then hold the research programmer up to your battery. You should [...] or you can send a message through [facility]. You can also now schedule and select appointments through [facility]. Mila Andino APRN.LAURIE [facility] Center04-[facility]23 Procedure note* Mila Andino APRN.CNP [...] closing but then relaxed. documented in this encounter[facility]04-[facility] History of Present illness Narrative* Mila Andino APRN.CNP - 02/08/2023 12:53 PM EDT [facility] - FOLLOW UP EVALUATION Ny Hoyos DO [address] [facility] [address] Dear Ny Hoyos DO: I had the [...] (FLONASE) 50 mcg/actuation nasal spray Use 1 Kite in each nostril once daily. docusate sodium [...] 26.72 kg/m . Movement Disorders Scales Performed: Brsw-Rfqyvs-Mwzkx Tremor Scale Voice Tremor Action and Intention: [...] this with the following steps: -Push the [place] check button and then hold the research programmer up to your battery. -Using the navigator pad at the bottom of your research programmer, push the down arrow to put [...] settings you came in on). -Push the [place] check button and then hold the research programmer up to your battery. You should [...] changes. Mila Andino APRN.LAURIE documented in this encounterAsht[facility]ula [facility] Center01-05-2023 History of Present illness Narrative* Stacy Jones MD - 11/09/2022 12:52 PM EST At appointment with EW today patient stated he did not want to proceed with injections today since pain is managed. Therefore I did not see him. Will keep February appointments for now and cancel if notneeded. documented in this [facility]01-05-2023 Instructions* Patient Instructions* Mila Andino APRN.LAURIE [...] or you can send a message through BAAS[employer]. You can also now schedule and select appointments through [employer]. Mila Andino APRN.LAURIE documented in this encounterAsht[facility]ula [facility] Center01-05-2023 Procedure note* Mila Andino APRN.LAURIE - 11/09/2022 [...] closing but then relaxed. documented in this encounterAsht[facility] Center01-05-2023 History of Present illness Narrative* Mila Andino APRN.LAURIE - 11/09/2022 12:17 PM EST [facility] - FOLLOW UP EVALUATION Ny Hoyos DO [address] [place] [address] Dear Ny Hoyos DO: I had the [...] (FLONASE) 50 mcg/actuation nasal spray Use 1 Kite in each nostril once daily. docusate sodium [...] 26.72 kg/m . Movement Disorders Scales Performed: Gsvp-Jgshpg-Voxqn Tremor Scale Voice Tremor Action and Intention: [...] Buspar 10mg 1 1 1 Mila Andino APRN.POCKET CUTTER documented in this encounterAshtabula [facility] Center12-13-2022 Evaluation note* Encounter Date Diagnosis [...] Pt understood and agreed to tx plan. [facility] Other 10-06-2022 History of Present illness Narrative* Stacy Jones MD - 08/10/2022 10:50 AM EDT Images from the original note were not included. [facility] Neurotoxin Visit Date: August 10, [...] (FLONASE) 50 mcg/actuation nasal spray Use 1 Kite in each nostril once daily. docusate sodium [...] N/A Administered with EMG guidance: Yes Lot#: [id number] Exp Date: , Today's neurotoxin regimen: Med right midline left Sternocleidomastoid 1500 1500 Splenius capitus 750 750 Semispinalis 1500 1500 Total: 7500 Future plan of care: Follow up: 3 months Neurotoxin change: No Dose change:No Dilution change:No Stacy Jones MD August 10, 2022 12:20 PM Dept of NEUROLOGY TIME OUT/ PROCEDURE NOTE: Informed consent Yordan Marroquin Medical Record: [id number] Procedure: neurotoxin intramuscular injection The risks, benefits [...] -- Stacy Jones MD documented in this encounterAshtabula County [facility] Center06-28-2022 Instructions* Patient Instructions* Mila Andino APRN.CNP - [...] or you can send a message through [employer]. You can also now schedule and select appointments through [employer]. Mila Andino APRN.LAURIE documented in this encounterAshtabula County Medical Center06-28-2022 Procedure note* Mila Andino APRN.[facility] - 05/02/2022 12:17 PM EDT DBS programming: [...] closing but then relaxed. documented in this encounterAshtabula County Medical Center06-28-2022 History of Present illness Narrative* Mila Andino APRN.LAURIE - 05/02/2022 12:03 PM EDT [facility] - FOLLOW UP EVALUATION Ny Hoyos, DO [address] [facility] [place] [address] I had the pleasure of seeing Mr. [...] similar foods. May bring head at least nursing home to meet food. Tremor liquids Moderately [...] (FLONASE) 50 mcg/actuation nasal spray Use 1 Kite in each nostril once daily. docusate sodium [...] BMI 26.68 kg/m Movement Disorders Scales Performed: Hzzq-Uipkjs-Ahwld Tremor Scale Voice Tremor Action and Intention: [...] Making Level: 4 - Moderate Mila Andino APRN.POCKET CUTTER documented in this encounterAshtabula County Medical Center06-28-2022 History of Present illness Narrative* Stacy Jones MD - 05/02/2022 11:14 AM EDT Images from the original note were not included. [facility] Neurotoxin Visit Date: May 02, [...] (FLONASE) 50 mcg/actuation nasal spray Use 1 Kite in each nostril once daily. docusate sodium [...] guidance: Yes Injection Site: Cervical dystonia: CPT 91844 Right Left Sternocleidomastoid 1000 1000 Splenius capitus 500 500 Scalene Levator Scapulae Trapezius Semispinalis 1000 1000 Future plan of care: Return in about 3 months (around 08/02/2022) for botulinum toxin. Stacy Jones M.D. Clinical Rn Patient Services, [facility] [employer] [facility] Staff, [facility] [place] Department of Neurology [facility] Section documented in this encounterAshtabula County Medical Center05-20-2022 Miscellaneous Notes* Telephone Encounter - Darlin Johnson [facility] - 03/24/2022 10:05 AM EDT Pt's phoned [...] appt. * Telephone Encounter - Ce Coats [facility] - 03/22/2022 1:26 PM EDT NI PHONE [...] Mila Andino CNP. Number to return call [phone] Okay to leave a message ? Yes Last office visit 10/06/21 with Mila Andino POCKET CUTTER & Dr. Jones Next office visit 04/13/22 with Mila Andino CNP Thank you calling [facility] [place]. You will receive a return call within 48hours ( or 2 business days if close to the weekend). If you feel that this is an urgent issue and needs immediate attention, it is recommended that you contact your primary care provider office or proceed to your nearest Urgent Care Center of Emergency Room ED for evaluation/treatment. ' documented in this encounterAshtabula County Medical Center03-14-2022 Evaluation note* Encounter Date Diagnosis [...] call if those occur. Looks great today. [facility] Other 02-14-2022 Evaluation note* Encounter Date Diagnosis Assessment Notes Treatment Notes Treatment Clinical Notes Dec, Seasonal allergies (ICD-10 - J30.2) [facility] Other 12-14-2021 Evaluation note* Encounter Date Diagnosis Assessment Notes Treatment Notes Treatment Clinical Notes Oct, Seasonal allergies (ICD-10 - J30.2) complaining of a lot of itchy watery eyes and nasal congestion. does have middle ear effusion on exam. is doing flonase, tried jenny in the past without relief. will add astepro as well as zyrtec. 14 Oct, 2021 TMJ tenderness, right (ICD-10 - M26.621) will do prednisone to help, he does have dental visit coming up he will discuss with them as well. he knows that in 1 week if not improved he will call the office and will continue a work up. i did go over the side effect of steroids. Oct, Hyperlipidemia, mixed (ICD-10 - E78.2) will update. [facility] Other 11-07-2021 Evaluation note* Encounter Date Diagnosis [...] Patient care instructions given in writting by [facility] document. [facility] Other Evaluation note* Diagnosis Cervical dystonia- Primary Spasmodic torticollis documented in this encounter [facility]* Diagnosis Anxiety- Primary Anxiety state, unspecified Essential tremor Essential and other specified forms of tremor S/P deep brain stimulator placement Other postprocedural status documented in this encounter [facility] noteNo InformationNort [employer] Other Evaluation note* Diagnosis Cervical dystonia- Primary Spasmodic torticollis documented in this encounter [facility] note* Diagnosis Essential tremor- Primary Essential and other specified forms of tremor S/P deep brain stimulator placement Other postprocedural status Anxiety Anxiety state, unspecified documented in this encounter [facility] note* Diagnosis APPOINTMENT CANCELLED- Primary documented in this encounter [facility] note* Diagnosis Essential tremor- Primary Essential and other specified forms of tremor S/P deep brain stimulator placement Other postprocedural status Anxiety Anxiety state, unspecified documented in this encounter [facility]* Diagnosis Anxiety Anxiety state, unspecified documented in this encounter [facility]* Diagnosis Essential tremor- Primary Essential and other specified forms of tremor Anxiety Anxiety state, unspecified S/P deep brain stimulator placement Other postprocedural status documented in this encounter [facility]* Diagnosis Arthritis Unspecified arthropathy, site unspecified Vitamin D deficiency [facility] Diagnosis Essential tremor- Primary Essential and other specified forms of tremor S/P deep brain stimulator placement Other postprocedural status Anxiety Anxiety state, unspecified Abnormality of gait Cognitive impairment Unspecified persistent mental disorders due to conditions classified elsewhere Vitamin D deficiency Unspecified vitamin D deficiency documented in this encounter [facility]* Diagnosis Essential tremor- Primary Essential and other specified forms of tremor S/P deep brain stimulator placement Other postprocedural status documented in this encounter [facility]* Diagnosis Rheumatoid arthritis of other site, unspecified whether rheumatoid factor present ([facility])- Primary Pain due to onychomycosis of toenails of both feet documented [facility] this [facility] noteNo assessment information availableProtestant Deaconess Hospital Work Phone: Evaluation note* Diagnosis Gastroesophageal reflux disease, unspecified whether esophagitis present documented in this encounter [facility]* Diagnosis Preop examination- Primary Preoperative examination, unspecified Essential tremor Essential and other specified forms of tremor History of atrial fibrillation Personal history of other diseases of circulatory system Essential tremor- Primary Essential and other specified forms of tremor Anxiety Anxiety state, unspecified S/P deep brain stimulator placement Other postprocedural status Gait disorder Abnormality of gait documented in this encounter [facility]* Diagnosis Anxiety- Primary Anxiety state, [...] unspecified site, unspecified whether rheumatoid factor present ([facility]) Routine general medical examination at health care [...] of other diseases of circulatory system Hypercholesteremia ([facility]/HCC) Pure hypercholesterolemia Essential tremor Allergic rhinitis due to pollen, unspecified seasonality Rheumatoid arthritis, involving unspecified site, unspecified whether rheumatoid factor present ([facility]) Routine general medical examination at health care [...] unspecified site, unspecified whether rheumatoid factor present ([facility]) Routine general medical examination at health care facility- Primary Routine general medical examination at a [facility] care facility Noct[place] Need for hepatitis C [...] of other diseases of circulatory system Hypercholesteremia ([facility]) Pure hypercholesterolemia Essential tremor Allergic rhinitis due to pollen, unspecified seasonality Rheumatoid arthritis, involving unspecified site, unspecified whether rheumatoid factor present ([facility]) Routine general medical examination at health care facility- Primary Routine general medical examination at a [facility] No[place] Need for hepatitis C screening test [...] of other diseases of circulatory system Hypercholesteremia ([facility]) Pure hypercholesterolemia Essential tremor Allergic rhinitis due to pollen, unspecified seasonality Rheumatoid arthritis, involving unspecified site, unspecified whether rheumatoid factor present ([facility]) Routine general medical examination at health care facility- Primary Routine general medical examination at a [facility] care facility Nocturia Need for hepatitis [...] of other diseases of circulatory system Hypercholesteremia ([facility]) Pure hypercholesterolemia Essential tremor Allergic rhinitis due to pollen, unspecified seasonality Rheumatoid arthritis, involving unspecified site, unspecified whether rheumatoid factor present ([facility]) Routine general medical examination at health care facility- Primary Routine general medical examination at a [facility] care facility Nocturia Need for hepatitis C [...] of other diseases of circulatory system Hypercholesteremia ([facility]) Pure hypercholesterolemia Essential tremor Allergic rhinitis due to pollen, unspecified seasonality Rheumatoid arthritis, involving unspecified site, unspecified whether rheumatoid factor present ([facility]) Routine general medical examination at [facility] care facility- Primary Routine general medical examination at a [facility] care facility Nocturia Need for hepatitis C [...] of other diseases of circulatory system Hypercholesteremia ([facility]) Pure hypercholesterolemia Essential tremor Allergic rhinitis due to pollen, unspecified seasonality Rheumatoid arthritis, involving unspecified site, unspecified whether rheumatoid factor present ([facility]) Routine general medical examination at health care facility- Primary Routine general medical examination at a [facility] No[place]uria Need for hepatitis C screening test [...] of other diseases of circulatory system Hypercholesteremia ([facility]) Pure hypercholesterolemia Essential tremor Allergic rhinitis due to pollen, unspecified seasonality Rheumatoid arthritis, involving unspecified site, unspecified whether rheumatoid factor present ([facility]) Routine general medical examination at health care [...] to pollen, unspecified seasonality Essential tremor- Primary Tremor- Primary Abnormal involuntary movements Strain of lumbar region, subsequent encounter S/P deep brain stimulator placement documented [facility] encounter [facility]* Diagnosis Anxiety- Primary Anxiety state, unspecified Benign prostatic hyperplasia with lower urinary tract symptoms, symptom details unspecified History of atrial fibrillation Personal history of other diseases of circulatory system Hypercholesteremia ([facility]) Pure hypercholesterolemia Essential tremor Allergic rhinitis due to pollen, unspecified seasonality Rheumatoid arthritis, involving unspecified site, unspecified whether rheumatoid factor present ([facility]) Routine general medical examination at health care [...] to pollen, unspecified seasonality Essential tremor- Primary Tremor- Primary Abnormal involuntary movements Strain of lumbar region, subsequent encounter S/P deep brain stimulator placement Rheumatoid arthritis of other site, unspecified whether rheumatoid factor present ([facility])- Primary Pain due to onychomycosis of toenails of both feet documented in this encounter [facility]* Diagnosis Arthritis Unspecified arthropathy, site unspecified documented in this encounter [facility]History general Narrative - Reported* Type Description Date Medical History tremors Medical History Atrial fibrillation Surgical History DBS - Deep brain stimulator 201 0 Surgical History R knee replacement Surgical History L elbow - pinched nerve Surgical History cardiac ablation Hospitalization History see above [facility] Other History general Narrative - Reported* Type Description Date Medical History tremors Medical History Atrial fibrillation Medical History GERD Surgical History DBS - Deep brain stimulator 201 0 Surgical History R knee replacement Surgical History L elbow - pinched nerve Surgical History cardiac ablation Hospitalization History see above [facility] Other InstructionsNot on filedocumented in this encounter [facility] SystemInstructionsNot on filedocumented in this encounter [facility] SystemReason for visit Narrative* Rehabilitation - Outpatient (Routine) - Authorized Specialty Diagnoses / Procedures Referred By Contac t Referred To Contact Physical Therapy Diagnoses Essential tremor Unspecified abnormalities of gait and mobility Procedures DC PHYSICAL THERAPY EVALUATION LOW COMPLEX 20 MINS Mila Andino, ASYA [address] [place] [id number] Phone: tel: fax: Svetlana Carrera PT Referral ID Status Reason Start Date Expiration Date V isits Requested Visits Authorized [id number] Authorized 09/01/2024 02/28/2025 20 20 [facility] Summary Purpose Family History Relationship Condition Age at Onset Recorded Date/T lexis father Unknown mother Leukemia Unknown Unknown Malignant neoplasm Unknown Advance Directives Documents on File Type Date Recorded 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 Advance Directive(s) 11/29/2021 2:19 PM [...] By Contac t Referred To Contact Diagnoses Anxiety Essential tremor S/P deep brain stimulator placement Procedures PROVIDER ORDERED FOLLOW UP OFFICE/OUTPATIENT NEW HIGH MDM 60 MINUTES Mila Andino, STATION ENGINEER CHIEF.POCKET CUTTER [address] [place] [address] Referral ID Status Reason Start Date Expiration Date Visits Requested Visits Authorized [id number] Authorized PCP Requested Referral 02/16/2025 08/18/2025 1 1 Specialty Diagnoses / Procedures Referred By Contac t Referred To Contact [facility] Diagnoses Essential tremor Gait disorder Procedures CONSULT TO PHYSICAL THERAPY PHYSICAL THERAPY EVALUATION HIGH COMPLEX 45 MINS Mila Andino, STATION ENGINEER CHIEF.POCKET CUTTER [address] [place] [address] [facility] [place] [address] [id number] Referral ID Status Reason Start Date Expiration Date Visits Requested Visits Authorized [id number] Authorized PCP Requested Referral Auto-Generate d Referral 08/18/2025 99 99 Specialty Diagnoses / Procedures Referred By Contac t Referred To Contact Diagnoses Essential tremor S/P deep brain stimulator placement Procedures PROVIDER ORDERED FOLLOW UP OFFICE/OUTPATIENT NEW HIGH MDM 60 MINUTES Mila Andino, STATION ENGINEER CHIEF.POCKET CUTTER [address] [place] [id number] Referral ID Status Reason Start Date Expiration Date Visits Requested Visits Authorized [id number] Authorized PCP Requested Referral 02/03/2025 04/22/2025 1 1 Specialty Diagnoses / Procedures Referred By Contac t Referred To Contact [facility] Diagnoses Essential tremor Abnormality of gait Procedures CONSULT TO PHYSICAL THERAPY PHYSICAL THERAPY EVALUATION HIGH COMPLEX 45 MINS Mila Andino, STATION ENGINEER CHIEF.POCKET CUTTER [address] [place] [phone] [facility] [place] [id number] [place] [phone] Referral ID Status Reason Start Date Expiration Date Visits Requested Visits Authorized [id number] Authorized PCP Requested Referral Auto-Generate d Referral [...] and content) DATE CREATED AUTHOR 05/01/2018 [facility] DATE CREATED AUTHOR AUTHOR'S ORGANIZ ATION 09/22/2018 [facility] DATE CREATED AUTHOR AUTHOR'S ORGANIZ ATION 07/03/2019 [facility] DATE CREATED AUTHOR AUTHOR'S ORGANIZ ATION 06/14/2020 [facility] DATE CREATED AUTHOR AUTHOR'S ORGANIZ ATION 2022 [facility] DATE CREATED AUTHOR AUTHOR'S ORGANIZ ATION 10/02/2024 [facility] DATE CREATED AUTHOR AUTHOR'S ORGANIZ ATION 11/07/2024 [facility] EPIC Source Comments (unrecognize d section and content) In the event this informatio n is protected by the Federal Confidentiality of Alcohol and Drug Abuse Patient Records regulations: The Federal rules restrict any use of the information to criminally investigate or prosecute any alcohol or drug abuse patient.[facility] CenterIn the event this information is protected by the Federal Confidentiality of Alcohol and Drug Abuse Patient Records regulations: The Federal rules restrict any use of the information to criminally investigate or prosecute any alcohol or drug abuse patient.[facility] CenterIn the event this information is protected by the Federal Confidentiality of Alcohol and Drug Abuse Patient Records regulations: The Federal rules restrict any use of the information to criminally investigate or prosecute any alcohol or drug abuse patient.[facility] CenterIn the event this information is protected by the Federal Confidentiality of Alcohol and Drug Abuse Patient Records regulations: The Federal rules restrict any use of the information to criminally investigate or prosecute any alcohol or drug abuse patient.[facility] CenterIn the event this information is protected by the Federal Confidentiality of Alcohol and Drug Abuse Patient Records regulations: The Federal rules restrict any use of the information to criminally investigate or prosecute any alcohol or drug abuse patient.[facility] CenterIn the event this information is protected by the Federal Confidentiality of Alcohol and Drug Abuse Patient Records regulations: The Federal rules restrict any use of the information to criminally investigate or prosecute any alcohol or drug abuse patient.[facility] CenterIn the event this information is protected by the Federal Confidentiality of Alcohol and Drug Abuse Patient Records regulations: The Federal rules restrict any use of the information to criminally investigate or prosecute any alcohol or drug abuse patient.[facility] CenterIn the event this information is protected by the Federal Confidentiality of Alcohol and Drug Abuse Patient Records regulations: The Federal rules restrict any use of the information to criminally investigate or prosecute any alcohol or drug abuse patient.[facility] Center[facility] the event this information is protected by the Federal Confidentiality of Alcohol and Drug Abuse Patient Records regulations: The Federal rules restrict any use of the information to criminally investigate or prosecute any alcohol or drug abuse patient.[facility] Center[facility] the event this information is protected by the Federal Confidentiality of Alcohol and Drug Abuse Patient Records regulations: The Federal rules restrict any use of the information to criminally investigate or prosecute any alcohol or drug abuse patient.[facility] CenterIn the event this information is protected by the Federal Confidentiality of Alcohol and Drug Abuse Patient Records regulations: The Federal rules restrict any use of the information to criminally investigate or prosecute any alcohol or drug abuse patient.[facility] CenterIn the event this information is protected by the Federal Confidentiality of Alcohol and Drug Abuse Patient Records regulations: The Federal rules restrict any use of the information to criminally investigate or prosecute any alcohol or drug abuse patient.[facility] CenterIn the event this information is protected by the Federal Confidentiality of Alcohol and Drug Abuse Patient Records regulations: The Federal rules restrict any use of the information to criminally investigate or prosecute any alcohol or drug abuse patient.[facility] CenterIn the event this information is protected by the Federal Confidentiality of Alcohol and Drug Abuse Patient Records regulations: The Federal rules restrict any use of the information to criminally investigate or prosecute any alcohol or drug abuse patient.[facility] CenterIn the event this information is protected by the Federal Confidentiality of Alcohol and Drug Abuse Patient Records regulations: The Federal rules restrict any use of the information to criminally investigate or prosecute any alcohol or drug abuse patient.[facility] CenterIn the event this information is protected by the Federal Confidentiality of Alcohol and Drug Abuse Patient Records regulations: The Federal rules restrict any use of the information to criminally investigate or prosecute any alcohol or drug abuse patient.[facility] CenterIn the event this information is protected by the Federal Confidentiality of Alcohol and Drug Abuse Patient Records regulations: The Federal rules restrict any use of the information to criminally investigate or prosecute any alcohol or drug abuse patient.[facility] CenterIn the event this information is protected by the Federal Confidentiality of Alcohol and Drug Abuse Patient Records regulations: The Federal rules restrict any use of the information to criminally investigate or prosecute any alcohol or drug abuse patient.[facility] CenterIn the event this information is protected by the Federal Confidentiality of Alcohol and Drug Abuse Patient Records regulations: The Federal rules restrict any use of the information to criminally investigate or prosecute any alcohol or drug abuse patient.[facility] Reason for Visit (unrecogniz ed [...] Onset Date Comments Cx out PT 10/07/2024 Reason Comments Tremors Care Teams (unrecognized sec tion and content) Dining Server Relationship Specialty Start Date End Date Ny Hoyos DO [address] [facility] [place] [address] PCP - General Family Practice 10/06/21 Dining Server Relationship Specialty Start Date End Date Ny Hoyos DO [address] [facility] [place] [address] PCP - General Family Practice 10/06/21 Dining Server Relationship Specialty Start Date End Date Ny Hoyos DO [address] [place] [address] PCP - General Family Practice 10/06/21 Dining Server Relationship Specialty Start Date End Date Ny Hoyos, DO [address] [place] [address] PCP - General Family Medicine 10/06/21 Dining Server Relationship Specialty Start Date End Date Ny Hoyos, DO [address] [place] [address] PCP - General Family Medicine 10/06/21 Dining Server Relationship Specialty Start Date End Date Ny Hoyos, DO [address] [place] [address] PCP - General Family Medicine 10/06/21 Dining Server Relationship Specialty Start Date End Date Romain Ny E, DO [address] [place] [address] PCP - General Family Medicine 10/06/21 Dining Server Relationship Specialty Start Date End Date Ny Hoyos, DO [address] [place] [address] PCP - General Family Medicine 10/06/21 Dining Server Relationship Specialty Start Date End Date Romain Ny Trang, DO [address] [place] [address] PCP - General Family Medicine 10/06/21 Dining Server Relationship Specialty Start Date End Date Alee Hoyositlin Trang, DO [address] [place] [address] PCP - General Family Medicine 10/06/21 Dining Server Relationship Specialty Start Date End Date Jun Carrasco MD [address], [place], [place] [id number] PCP - General Internal Medicine 03/23/23 [facility] Nurse - [facility] 06/14/23 Dining Server Relationship Specialty Start Date End Date Ny Hoyos DO [address] [place] [address] PCP - General Family Medicine 10/06/21 Dining Server Relationship Specialty Start Date End Date Ny oHyos DO [address] [place] [address] PCP - General Family Medicine 10/06/21 Dining Server Relationship Specialty Start Date End Date Ny Hoyos DO [address] [place] [address] PCP - General Family Medicine 10/06/21 Dining Server Relationship Specialty Start Date End Date Ny Hoyos DO [address] [place] [place] [address] PCP - General Family Medicine 10/06/21 Dining Server Relationship Specialty Start Date End Date Ny Hoyos DO [address] [place] [address] PCP - General Family Medicine 10/06/21 Dining Server Relationship Specialty Start Date End Date Rasheed Lucas MD [address] [place] [address] PCP - General Family Medicine 01/31/24 Dining Server Relationship Specialty Start Date End Date Rasheed Lucas MD [address] [place] [address] [place] [address] PCP - General Family Medicine 01/31/24 Team Status: Active Member Role Status Dates Shayla Mirza APRN NETWORK TECHNICIAN-C Primary Care Provider Act mónica Team Status: Active Member Role Status Dates Shayla Mirza APRN NETWORK TECHNICIAN-C Primary Care Provider Act mónica Start: June 08, 2024 Josef Berry DO Attending Provider Active Sta rt: June 08, 2024 Team Status: Inactive Member Role Status Dates Shayla Mirza APRN NETWORK TECHNICIAN-C Primary Care Provider Act mónica Start: August 09, 2024 End: August 09, 2024 Clair Echols APRN Attending Provider Active Start: August 09, 2024 End: August 09, 2024 Dining Server Relationship Specialty Start Date End Date Jun Carrasco MD [address] [facility] [place] [address] PCP - General Internal Medicine 03/23/23 [facility] Dining Server Relationship Specialty Start Date End Date Rasheed Lucas MD [address] [address] PCP - General Family Medicine 01/31/24 Dining Server Relationship Specialty Start Date End Date Rasheed Lucas MD [address] [address] PCP - General Family Medicine 01/31/24 Dining Server Relationship Specialty Start Date End Date Ny Hoyos DO [address] [place] [address] PCP - General Family Medicine 10/06/21 Dining Server Relationship Specialty Start Date End Date Rasheed Lucas MD [address] [facility] [address] [place] [address] PCP - General Family Medicine 01/31/24 Dining Server Relationship Specialty Start Date End Date Rasheed Lucas MD [address] [facility] [address] [place] [address] PCP - General Family Medicine 01/31/24 Dining Server Relationship Specialty Start Date End Date Rasheed Lucas MD [address] [facility] [address] [place] [address] PCP - General Family Medicine 01/31/24 Dining Server Relationship Specialty Start Date End Date Rasheed uLcas MD [address] [facility] [address] [place] [address] PCP - General Family Medicine 01/31/24 Dining Server Relationship Specialty Start Date End Date Rasheed Lucas MD [address] [facility] [address] [place] [address] PCP - General Family Medicine 01/31/24 Dining Server Relationship Specialty Start Date End Date Rasheed Lucas MD [address] [facility] [address] [place] [address] PCP - General Family Medicine 01/31/24 Dining Server Relationship Specialty Start Date End Date Ny Hoyos DO [address] [place] [address] PCP - General Family Medicine 10/06/21 Dining Server Relationship Specialty Start Date End Date Ny Hoyos DO [address] [place] [address] PCP - General Family Medicine 10/06/21 Dining Server Relationship Specialty Start Date End Date Rasheed Lucas MD [address] [facility] [address] [place] [address] PCP - General Family Medicine 01/31/24 Dining Server Relationship Specialty Start Date End Date Rasheed Lucas MD [address] [facility] [address] [place] [address] PCP - General Family Medicine 01/31/24 Dining Server Relationship Specialty Start Date End Date Rasheed Lucas MD [address] [facility] [address] [place] [address] PCP - General Family Medicine 01/31/24 Dining Server Relationship Specialty Start Date End Date Rasheed Lucas MD [address] [facility] [address] [place] [address] PCP - General Family Medicine 01/31/24 Dining Server Relationship Specialty Start Date End Date Rasheed Lucas MD [address] [facility] [address] [place] [address] PCP - General Family Medicine 01/31/24 Dining Server Relationship Specialty Start Date End Date Rasheed Lucas MD [address] [facility] [address] [place] [address] PCP - General Family Medicine 01/31/24 Dining Server Relationship Specialty Start Date End Date Rasheed Lucas MD [address] [facility] [address] [place] [address] PCP - General Family Medicine 01/31/24 Dining Server Relationship Specialty Start Date End Date Rasheed Lucas MD [address] [facility] [address] [place] [address] PCP - General Family Medicine 01/31/24 Dining Server Relationship Specialty Start Date End Date Jun Carrasco MD [address] [facility] [place] [address] PCP - General Internal Medicine 03/23/23 [facility] 06/14/23 Goals (unrecognized section and content) Goals may [...] BE BASED ON THE PRIMARY CLINICAL RECORDS. [employer] provides no warranty or guarantee of the accuracy or completeness of information in this document.
== END 2024-12-03 11:26 | disposition left against medical advice (07) ==
PROVIDERS: Emergency Provider Emergency Medicine; PCP Family Medicine
DX: Z53.21 Procedure and treatment not carried out due to patient leaving prior to being seen by health care provider (principal)

== ENCOUNTER 2025-05-20 09:14 | Outpatient (OUT) | payer MEDICARE, SELFPAY ==
--- OUTSIDE RECORDS SUMMARY | 2025-05-11 13:00 | XMS_ITS | Encounter Summary ---
Author Organization [facility] Address [address] [place] [address] Care Team Providers Care Senior Windows Engineer Name Role Phone Emilia Mayo MD Primary Care Provider [phone] Reason for Visit * Reason Comments Medicare Annual Wellness Visit Subsequen t Med Refill Azelestine Night Sweats Wondering if he need s bloodwork for this. Diabetic Neuropathy Has tingling/numbnes s in bilateral feet and pain. Encounter Details Date Type Department Care Team (Late st Contact Info) Description 05/11/2025 1:00 PM EDT Office Visit [facility] [address] [facility] [address] [place] [id number] Lynn Ly PA 112 [facility] [address] [place] [address] Medicare annual wellness visit, subsequent (Primary Dx); ACP (advance care planning); Bilateral carpal tunnel syndrome; Essential tremor; Chronic tension-type headache, not intractable; Pinched nerve; Simple chronic bronchitis (HCC); Paroxysmal atrial fibrillation (HCC); Primary hypertension ; Orthostatic hypotension; Diverticulosis of colon; Gastroesophageal reflux disease without esophagitis; Benign prostatic hyperplasia with nocturia; Microscopic hematuria; Recurrent nephrolithiasis; Ureteral calculus; Hammer toe, unspecified laterality; Abnormality of gait; Seasonal allergic rhinitis due to pollen; Anxiety; Chest pain, unspecified type; Excessive sweating; History of atrial fibrillation; Hypercholesteremia ; Other mechanical complication of implanted electronic neurostimulator, generator, initial encounter; Poor balance; Rheumatoid arthritis involving multiple sites, unspecified whether rheumatoid factor present (HCC); S/P deep brain stimulator placement; Sensorineural hearing loss, bilateral; Night sweats; Right ear impacted cerumen; Neuropathy; Screening for malignant neoplasm of prostate; Vitamin D deficiency; Weight loss; Overweight Social History Tobacco Use Types Packs/Day Years Used Date Smoking Tobacco: Former Cigarettes Passive Smoke Exposure: Past Smokeless Tobacco: Never Alcohol Use Standard Drinks/Week Comments Never 0 (1 standard drink = 0.6 oz pur e alcohol) PHQ-2 Answer Date Recorded Patient Health Questionnaire-2 Score 0 05/11/2025 Sex and Gender Information Value Date Recorded Sex Assigned at Not on file Legal Sex Male 6:48 PM EDT Gender Identity Not on file Sexual Orientation Not on file documented as of this encounter Last Filed Vital Signs Vital Sign Reading Time Taken Comments Blood Pressure 128/84 05/11/2025 1:19 PM EDT Pulse 86 05/11/2025 1:19 PM EDT Temperature - - Respiratory Rate 16 05/11/2025 1:19 PM EDT Oxygen Saturation 97% 05/11/2025 1:19 PM EDT Inhaled Oxygen Concentration - - Weight 95.5 kg (210 lb 9.6 oz) 05/11/2025 1:19 P M EDT Height 188 cm (6' 2 ) 05/11/2025 1:19 PM EDT Body Mass Index 27.04 05/11/2025 1:19 PM EDT documented in this encounter Functional Status * Over the past 2 weeks, how often have you been bothered by any of the following problems? Question Answer Date of Assessment Author Little interest or pleasure in doing things Not at all 05/11/2025 12:00 PM EDT Lamar Maynard L PN Feeling down, depressed, or hopeless Not at all 05/11/2025 12:00 PM EDT Lamar Maynard L PN Patient Health Questionnaire -2 Score 0 05/11/2025 12:00 PM EDT Lamar Maynard L PN * Question Answer Date of Assessment Author Trouble falling or staying asleep, or sleeping too much Not at all 05/11/2025 12:00 PM EDT Alis Maynard LPN Feeling tired or having adalberto le energy Not at all 05/11/2025 12:00 PM EDT Lamar Maynard L PN Poor appetite or overeating Not at all 05/11/2025 12 :00 PM EDT Lamar Maynard LPN Feeling bad about yourself - or that you are a failure or have let yourself or your family down Not at all 05/11/2025 12:00 PM EDT Lamar Maynard L PN Trouble concentrating on things, such as reading the newspaper or watching television Not at all 05/11/2025 12:00 PM Lamar Segura L PN Moving or speaking so slowly that other people could have noticed? Or the opposite - being so fidgety or restless that you have been moving around a lot more than usual. Not at all 05/11/2025 12:00 PM Lamar Segura LPN Thoughts that you would be better off or hurting yourself in some way Not at all 05/11/2025 12:00 PM Lamar Segura LPN Patient Health Questionnaire -9 Score 0 05/11/2025 12:00 PM EDLamar Fabian L PN documented as of this encounter Progress Notes * ROMA Davis - 05/11/2025 1:00 PM EDT Images from the original note were not included. HPI Med Refill Additional comments: Azelestine Night Sweats Additional comments: Wondering if he needs bloodwork for this. Diabetic Neuropathy Additional comments: Has tingling/numbness in bilateral feet and pain. Last edited by Lamar Maynard LPN on 05/11/2025 1:19 PM. Subjective Patient ID: Chaz Marroquin is a 79 y.o. male who presents for Medicare Annual Wellness Visit Subsequent, Med Refill (Azelestine), Night Sweats (Wondering if he needs bloodwork for this. ), and Diabetic Neuropathy (Has tingling/numbness in bilateral feet and pain.). HPI Medicare Wellness Over the past 2 weeks, how often have you been bothered by any of the following problems? Little interest or pleasure in doing things: Not at all Feeling down, depressed, or hopeless: Not at all Patient Health Questionnaire-2 Score: 0 Over the past 2 weeks, how often have you been bothered by any of the following problems? Trouble falling or staying asleep, or sleeping too much: Not at all Feeling tired or having little energy: Not at all Poor appetite or overeating: Not at all Feeling bad about yourself - or that you are a failure or have let yourself or your family down: Not at all Trouble concentrating on things, such as reading the newspaper or watching television: Not at all Moving or speaking so slowly that other people could have noticed? Or the opposite - being so fidgety or restless that you have been moving around a lot more than usual.: Not at all Thoughts that you would be better off or hurting yourself in some way: Not at all Patient Health Questionnaire-9 Score: 0 Hand Fall Risk History of Falling, Immediate or Within 3 Months: No Health Risk Assessment Form Do you need help eating, bathing, using the toilet, dressing, or getting around your home?: No Can you prepare your own meals?: Yes Can you do your own housework without help?: Yes Can you shop for groceries or clothes without help?: Yes Do you exercise for about 20 minutes 3 or more days a week?: No How confident are you that you can control and manage most of your health problems?: Very confident Can you mange your money, credit cards and accounts, pay bills and taxes?: Yes Vision Screening: Yes, no gross abnormalities Hearing Screening: Yes, no gross abnormalities Cognitive Screening Self Assessment: No overt cognitive deficiency is apparent by direct observation Three Word Registration: Village, Kitchen, Baby Clock Drawing: Inability or Refusal to Draw Clock - 0 (tremor) Three Word Recall: All 3 words correct - 3 Total Score (0-5 Points): 3 Pain Assessment Pain Score: 4 Advance Care Planning Do you have a living will?: Yes Do you have a medical power of defense attorney?: Yes Current Outpatient Medications on File Prior to Visit Medication Sig Dispense [place] [facility] [place] (NEURIVA PO) Take 1 tablet by mouth 1 (one) time each day saccharomyces boulardii (Florastor) 250 MG capsule Take 250 mg by mouth Daily albuterol HFA 90 mcg/act inhaler INHALE 2 PUFFS BY MOUTH EVERY 4 TO 6 HOURS NEEDED SHORTNESS OF BREATH and FOR WHEEZING aspirin (ASPIR) 81 MG EC tablet Take 81 mg by mouth Daily baclofen (Lioresal) 10 MG tablet Take 1 tablet (10 mg) by mouth in the morning and 1 tablet (10 mg)in the evening and 1 tablet (10 mg) before bedtime. (Patient taking differently: Take 10 mg by mouth in the morning and 10 mg in the evening and 10 mg before bedtime. PRN.) 90 tablet 1 busPIRone (Buspar) 10 MG tablet Take 10 mg by mouth in the morning and 10 mg before bedtime. Calcium Carbonate-Vitamin D (Oyster Shell Calcium/D) 500-5 MG-MCG tablet Take 1 tablet by mouth celecoxib (CeleBREX) 200 MG capsule TAKE 1 CAPSULE BY MOUTH TWICE DAILY NEEDED FOR PAIN fluticasone (Flonase) 50 MCG/ACT nasal spray Administer 1 spray into each nostril in the morning. Zogxpxdgdwl-Zgnenytok-Gouwdw (Trelegy Ellipta) 200-62.5-25 MCG/ACT aerosol powder Inhale 1 puff Daily (Patient not taking: Reported on 05/11/2025) 1 each 0 omeprazole (PriLOSEC) [address] capsule Take 20 mg by mouth in the morning. [DISCONTINUED] Azelastine HCl 137 MCG/SPRAY solution Administer 1 spray into affected nostril(s) inthe morning and 1 spray before bedtime. Do all this for 14 days. 30 mL 0 [DISCONTINUED] cetirizine (ZyrTEC) 10 MG tablet Take 1 tablet (10 mg) by mouth Daily 100 tablet 3 [DISCONTINUED] cholecalciferol 125 MCG (5000 UT) capsule TAKE 1 CAPSULE BY MOUTH IN THE MORNING 60 capsule 0 [DISCONTINUED] predniSONE (Deltasone) 20 MG tablet Take 20 mg by mouth in the morning and 20 mg before bedtime. No current facility-administered medications on file prior [...] Past Medical History: Diagnosis Date Atrial fibrillation (HCC) Hearing aid worn Kidney stones Obstructive sleep apnea Osteoarthritis Pacemaker Patellar dislocation Sleep apnea Strain of lumbar region 10/20/2024 Stroke-like symptoms 10/06/2024 Tremors of nervous system Past Surgical History: Procedure Laterality Date CARDIAC ELECTROPHYSIOLOGY STUDY AND ABLATION 2018 CYSTOSCOPY DEEP BRAIN STIMULATOR PLACEMENT INSERTION / REMOVAL CRANIAL DBS GENERATOR OTHER SURGICAL HISTORY Left cubital tunnel release MS REMOVAL OF KIDNEY STONE TOTAL KNEE ARTHROPLASTY Right Visit Vitals BP 128/84 Pulse 86 Resp 16 Ht 6' 2 Wt 210 lb 9.6 oz SpO2 97% BMI 27.04 kg/m² Smoking Status Former BSA 2.23 m² Review of Systems Constitutional: Negative for chills, fatigue and fever. HENT: Positive for hearing loss. Negative for congestion, ear pain, rhinorrhea, sinus pressure and sore throat. Eyes: Negative for pain, discharge and redness. Respiratory: Negative for cough, shortness of breath and wheezing. Cardiovascular: Negative for chest pain, palpitations and leg swelling. Gastrointestinal: Negative for abdominal pain, constipation, diarrhea, nausea and vomiting. Genitourinary: Negative for dysuria, frequency and urgency. Musculoskeletal: Negative for arthralgias and back pain. Skin: Negative for rash. Neurological: Negative for dizziness, numbness and headaches. Psychiatric/Behavioral: Negative for confusion, dysphoric mood and sleep disturbance. Endocrine: Night sweats Objective Physical Exam Constitutional: General: He is not in acute distress. Appearance: Normal appearance. HENT: Head: Normocephalic and atraumatic. Right Ear: There is impacted cerumen. Left Ear: Tympanic membrane and ear canal normal. Nose: Nose normal. Mouth/Throat: Mouth: Mucous membranes are moist. Pharynx: Oropharynx is clear. Eyes: General: No scleral icterus. Extraocular Movements: Extraocular movements intact. Conjunctiva/sclera: Conjunctivae normal. Pupils: Pupils are equal, round, and reactive to light. Neck: Vascular: No carotid bruit. Cardiovascular: Rate and Rhythm: Normal rate and regular rhythm. Pulses: Normal pulses. Pulmonary: Effort: Pulmonary effort is normal. Breath sounds: Normal breath sounds. No wheezing, rhonchi or rales. Abdominal: General: Bowel sounds are normal. There is no distension. Palpations: Abdomen is soft. Tenderness: There is no abdominal tenderness. There is no guarding. Musculoskeletal: General: No swelling, tenderness, deformity or signs of injury. Normal range of motion. Cervical back: Normal range of motion. No tenderness. Lymphadenopathy: Cervical: No cervical adenopathy. Skin: General: Skin is warm and dry. Findings: No erythema. Neurological: General: No focal deficit present. Mental Status: He is alert and oriented to person, place, and time. Cranial Nerves: No cranial nerve deficit. Sensory: No sensory deficit. Motor: Tremor (Head) present. No weakness. Coordination: Coordination normal. Gait: Gait normal. Psychiatric: Mood and Affect: Mood normal. Behavior: Behavior normal. Thought Content: Thought content normal. Judgment: Judgment normal. Assessment & Plan 1. Medicare annual wellness visit, subsequent (Primary) Reviewed all relevant preventative screenings with the patient in detail. Medicare Wellness form completed and will be scanned into patient's chart. All needed testing was ordered. Will continue withyearly Medicare Wellness exams. - CBC and differential - Comprehensive metabolic panel - Lipid panel - PSA - TSH W/REFLEX TO FT4 - Vitamin D 25 hydroxy Total - Folate - Vitamin B12 2. ACP (advance care planning) Patient willing to discuss ACP. Pt has Living Will and DPOA in place. 3. Bilateral carpal tunnel syndrome This is a chronic medical condition that is stable since last assessment. Will continue to monitor. 4. Essential tremor The patient is seeing a medical and health services manager for this condition, treatment is deferred to that specialist. Correspondence from that specialist and any available testing were reviewed during today's visit. - Vitamin B12 5. Chronic tension-type headache, not intractable The patient is seeing a medical and health services manager for this condition, treatment is deferred to that specialist. Correspondence from that specialist and any available testing were reviewed during today's visit. 6. Pinched nerve The patient is seeing a medical and health services manager for this condition, treatment is deferred to that specialist. Correspondence from that specialist and any available testing were reviewed during today's visit. 7. Simple chronic bronchitis (HCC) This is a chronic medical condition that is stable since last assessment. No changes in treatment are suggested at this time. Continue Albuterol prn. 8. Paroxysmal atrial fibrillation (HCC) This is a chronic medical condition that is stable since last assessment. No changes in treatment are suggested at this time. Continue ASA as prescribed. - CBC and differential - Comprehensive metabolic panel - Lipid panel 9. Primary hypertension This is a chronic medical condition that is stable since last assessment. No changes in treatment are suggested at this time. - CBC and differential - Comprehensive metabolic panel - Lipid panel 10. Orthostatic hypotension This is a chronic medical condition that is stable since last assessment. Continue to stay hydrated. 11. Diverticulosis of colon This is a chronic medical condition that is stable since last assessment. Denies symptoms currently. 12. Gastroesophageal reflux disease without esophagitis This is a chronic medical condition that is stable since last assessment. No changes in treatment are suggested at this time. Continue Omeprazole as prescribed. 13. Benign prostatic hyperplasia with nocturia This is a chronic medical condition that is stable since last assessment. Will continue to monitor. 14. Microscopic hematuria H/o, no current complaints. Will continue to monitor. Continue to stay hydrated. 15. Recurrent nephrolithiasis H/o, no current complaints. Will continue to monitor. Continue to stay hydrated. 16. Ureteral calculus H/o, no current complaints. Will continue to monitor. Continue to stay hydrated. 17. Hammer toe, unspecified laterality The patient is seeing a medical and health services manager for this condition, treatment is deferred to that specialist. Correspondence from that specialist and any available testing were reviewed during today's visit. 18. Abnormality of gait This is a chronic medical condition that is stable since last assessment. Will continue to monitor. 19. Seasonal allergic rhinitis due to pollen This is a chronic medical condition that is stable since last assessment. No changes in treatment are suggested at this time. Azelastine as prescribed. - Azelastine HCl 137 MCG/SPRAY solution; Administer 1 spray into affected nostril(s) in the morningand 1 spray before bedtime. Dispense: 30 mL; Refill: 5 20. Anxiety The patient is seeing a medical and health services manager for this condition, treatment is deferred to that specialist. Correspondence from that specialist and any available testing were reviewed during today's visit. 21. Chest pain, unspecified type This is a chronic medical condition that is stable since last assessment. No changes in treatment are suggested at this time. Continue ASA as prescribed. 22. Excessive sweating Will assess further with updated labs. Will notify pt of the results once received. - TSH W/REFLEX TO FT4 23. History of atrial fibrillation This is a chronic medical condition that is stable since last assessment. No changes in treatment are suggested at this time. Continue ASA as prescribed. 24. Hypercholesteremia This is a chronic medical condition that is stable since last assessment. Will continue to monitor with routine labs. - CBC and differential - Comprehensive metabolic panel - Lipid panel 25. Other mechanical complication of implanted electronic neurostimulator, generator, initial encounter The patient is seeing a medical and health services manager for this condition, treatment is deferred to that specialist. Correspondence from that specialist and any available testing were reviewed during today's visit. 26. Poor balance The patient is seeing a medical and health services manager for this condition, treatment is deferred to that specialist. Correspondence from that specialist and any available testing were reviewed during today's visit. 27. Rheumatoid arthritis involving multiple sites, unspecified whether rheumatoid factor present (HCC) This is a chronic medical condition that is stable since last assessment. Will continue to monitor. 28. S/P deep brain stimulator placement The patient is seeing a medical and health services manager for this condition, treatment is deferred to that specialist. Correspondence from that specialist and any available testing were reviewed during today's visit. 29. Sensorineural hearing loss, bilateral This is a chronic medical condition that is stable since last assessment. Uses hearing aids bilaterally. 30. Night sweats Will assess further with upcoming labs. Will notify pt of the results once received. - TSH W/REFLEX TO FT4 - Vitamin D 25 hydroxy Total - Vitamin B12 31. Right ear impacted cerumen Encouraged pt to use OTC drops for the next week. Can follow up for ear irrigation if unable to remove cerumen at home. 32. Neuropathy The patient is seeing a medical and health services manager for this condition, treatment is deferred to that specialist. Correspondence from that specialist and any available testing were reviewed during today's visit. - TSH W/REFLEX TO FT4 - Vitamin D 25 hydroxy Total - Folate - Vitamin B12 33. Screening for malignant neoplasm of prostate Will check PSA with upcoming labs. Will continue to monitor with yearly labs. - PSA 34. Vitamin D deficiency Will check Vitamin D with upcoming labs. Used to take a Vitamin D supplement. - Vitamin D 25 hydroxy Total 35. Weight loss Will assess further with updated labs. Will notify pt of the results once received. - Comprehensive metabolic panel - TSH W/REFLEX TO FT4 - Vitamin D 25 hydroxy Total - Folate - Vitamin B12 36. Overweight Encouraged portion control, decrease simple sugars and carbohydrates, gradually increase activity level. Will continue to monitor. Follow up in about 6 months (around 11/11/2025). Lynn DENSON PA-C documented in this encounter Plan of Treatment Upcoming Encounters Date Type Department Care Team (Late st Contact Info) Description 07/02/2025 3:10 PM EDT Procedure Visit [facility] [address] [facility] [address] [place] [phone] Nish Alejandro DPM [address] [facility] [address] [place] [address] 11/11/2025 9:00 AM EST Office Visit [facility] [address] [facility] [address] [place] [phone] Lynn Ly PA 112 [facility] [address] [place] [address] Scheduled Orders Name Type Priority Associated Diagnoses Orde r Schedule CBC and differential Lab Routine Medicare annual wellness visit, subsequent Paroxysmal atrial fibrillation (HCC) Primary hypertension Hypercholesteremia Ordered: 05/11/2025 Comprehensive metabolic panel Lab Routine Medicare annual wellness visit, subsequent Paroxysmal atrial fibrillation (HCC) Primary hypertension Hypercholesteremia Weight loss Ordered: 05/11/2025 Folate Lab Routine Medicare annual wellness visit, subsequent Neuropathy Expected: 05/11/2025 (Approximate), Expires: 05/11/2026 Lipid panel Lab Routine Medicare annual wellness visit, subsequent Paroxysmal atrial fibrillation (HCC) Primary hypertension Hypercholesteremia Ordered: 05/11/2025 PSA Lab Routine Medicare annual wellness visit, subsequent Screening for malignant neoplasm of prostate Ordered: 05/11/2025 TSH W/REFLEX TO FT4 Lab Routine Medicare annual wellness visit, subsequent Excessive sweating Night sweats Neuropathy Weight loss Ordered: 05/11/2025 Vitamin D 25 hydroxy Total Lab Routine Medicare annual wellness visit, subsequent Night sweats Neuropathy Vitamin D deficiency Weight loss Ordered: 05/11/2025 Vitamin B12 Lab Routine Medicare annual wellness visit, subsequent Essential tremor Night sweats Neuropathy Weight loss Expected: 05/11/2025 (Approximate), Expires: 05/11/2026 documented as of this encounter Visit Diagnoses Diagnosis Medicare annual wellness visit, subsequent- Primary ACP (advance care planning) Other specified counseling Bilateral carpal tunnel syndrome Carpal tunnel syndrome Essential tremor Chronic tension-type headache, not intractable Chronic tension type headache Pinched nerve Mononeuritis of unspecified site Simple chronic bronchitis (HCC) Simple chronic bronchitis Paroxysmal atrial fibrillation (HCC) Atrial fibrillation Primary hypertension Unspecified essential hypertension Orthostatic hypotension Diverticulosis of colon Diverticulosis of colon (without mention of hemorrhage) Gastroesophageal reflux disease without esophagitis Esophageal reflux Benign prostatic hyperplasia with nocturia Microscopic hematuria Recurrent nephrolithiasis Ureteral calculus Calculus of ureter Hammer toe, unspecified laterality Abnormality of gait Seasonal allergic rhinitis due to pollen Anxiety Anxiety state, unspecified Chest pain, unspecified type Excessive sweating Generalized hyperhidrosis History of atrial fibrillation Personal history of other diseases of circulatory system Hypercholesteremia Pure hypercholesterolemia Other mechanical complication of implanted electronic neurostimulator, generator, initial encounter Poor balance Rheumatoid arthritis involving multiple sites, unspecified whether rheumatoid factor present ([facility]) S/P deep brain stimulator placement Sensorineural hearing loss, bilateral Night sweats Generalized hyperhidrosis Right ear impacted cerumen Impacted cerumen Neuropathy Mononeuritis of unspecified site Screening for malignant neoplasm of prostate Vitamin D deficiency Weight loss Loss of weight Overweight documented in this encounter Additional Health Concerns Assessment Noted Time PHQ-9 Depression Total Score: 0 05/11/20 25 12:00 PM EDT documented as of this encounter Care Teams Senior Windows Engineer Relationship Specialty Start Date End Date Emilia Mayo MD [address] [place] [address] PCP - General Family Medicine 01/31/24 documented as of this encounter
--- OUTSIDE RECORDS SUMMARY | 2025-05-20 09:00 | XMS_ITS | Encounter Summary ---
Author Organization [facility] Address [address] [place] [address] Care Team Providers Care Him Manager Name Role Phone Emilia Mayo MD Primary Care Provider [phone] Reason for Visit * Reason Comments ear cleaning Encounter Details Date Type Department Care Team (Late st Contact Info) Description 05/20/2025 9:00 AM EDT Office Visit [facility] [address] [facility] [address] [place] [id number] Lynn Ly PA [address] [facility] [address] [place] [address] Hearing loss of right ear due to cerumen impaction (Primary Dx); Allergic rhinitis due to pollen, unspecified seasonality Social History Tobacco Use Types Packs/Day Years Used Date Smoking Tobacco: Former Cigarettes Passive Smoke Exposure: Past Smokeless Tobacco: Never Alcohol Use Standard Drinks/Week Comments Never 0 (1 standard drink = 0.6 oz pur e alcohol) PHQ-2 Answer Date Recorded Patient Health Questionnaire-2 Score 0 05/20/2025 Sex and Gender Information Value Date Recorded Sex Assigned at Not on file Legal Sex Male 6:48 PM EDT Gender Identity Not on file Sexual Orientation Not on file documented as of this encounter Last Filed Vital Signs Vital Sign Reading Time Taken Comments Blood Pressure 122/86 05/20/2025 8:43 AM EDT Pulse 73 05/20/2025 8:43 AM EDT Temperature - - Respiratory Rate - - Oxygen Saturation 95% 05/20/2025 8:43 AM EDT Inhaled Oxygen Concentration - - Weight 95.7 kg (211 lb) 05/20/2025 8:43 AM EDT Height 188 cm (6' 2 ) 05/20/2025 8:43 AM EDT Body Mass Index 27.09 05/20/2025 8:43 AM EDT documented in this encounter Functional Status * Over the past 2 weeks, how often have you been bothered by any of the following problems? Question Answer Date of Assessment Author Little interest or pleasure in doing things Not at all 05/20/2025 7:30 AM EDT Karen Witt MA Feeling down, depressed, or hopeless Not at all 05/20/2025 7:30 AM EDT Karen Witt MA Patient Health Questionnaire -2 Score 0 05/20/2025 7:30 AM EDT Karen Witt MA documented as of this encounter Progress Notes * ROMA Davis - 05/20/2025 9:00 AM EDTAssociated Order(s): Ear Cerumen Removal Images from the original note were not included. Subjective Patient ID: Chaz Marroquin is a 79 y.o. male who presents for ear cleaning . Right ear is needing cleaned. Over the past 2 weeks, how often have you been bothered by any of the following problems? Little interest or pleasure in doing things: Not at all Feeling down, depressed, or hopeless: Not at all Patient Health Questionnaire-2 Score: 0 Current Outpatient Medications on File Prior to Visit Medication Sig Dispense Refill albuterol HFA 90 mcg/act inhaler INHALE 2 PUFFS BY MOUTH EVERY 4 TO 6 HOURS NEEDED SHORTNESS OF BREATH and FOR WHEEZING aspirin (ASPIR) 81 MG EC tablet Take 81 mg by mouth Daily Azelastine HCl 137 MCG/SPRAY solution Administer 1 spray into affected nostril(s) in the morning and 1 spray before bedtime. 30 mL 5 baclofen (Lioresal) 10 MG tablet Take 1 [...] spray into each nostril in the morning. Misc Natural Products (NEURIVA PO) Take 1 tablet by mouth 1 (one) time each day omeprazole (PriLOSEC) [address] capsule Take 20 mg by mouth in the morning. saccharomyces boulardii (Florastor) 250 MG capsule Take 250 mg by mouth Daily [DISCONTINUED] Dzprtbwflvf-Pdzuhkizh-Qorxju (Trelegy Ellipta) 200-62.5-25 MCG/ACT aerosol powder Inhale 1 puff Daily (Patient not taking: Reported on 05/11/2025) 1 each 0 No current facility-administered medications on file [...] OTHER SURGICAL HISTORY Left cubital tunnel release FL REMOVAL OF KIDNEY STONE TOTAL KNEE ARTHROPLASTY Right Visit Vitals BP 122/86 Pulse 73 Ht 6' 2 Wt 211 lb SpO2 95% BMI 27.09 kg/m² Smoking Status Former BSA 2.24 m² Review of Systems Constitutional: Negative for chills, fatigue and fever. HENT: Positive for hearing loss. Respiratory: Negative for cough, shortness of breath and wheezing. Cardiovascular: Negative for chest pain, palpitations and leg swelling. Gastrointestinal: Negative for abdominal pain, constipation, diarrhea, nausea and vomiting. Skin: Negative for rash. Objective Physical Exam Constitutional: General: He is not in acute distress. Appearance: Normal appearance. HENT: Head: Normocephalic and atraumatic. Right Ear: There is impacted cerumen. Eyes: General: No scleral icterus. Cardiovascular: Rate and Rhythm: Normal rate and regular rhythm. Pulmonary: Effort: Pulmonary effort is normal. No respiratory distress. Musculoskeletal: General: No swelling. Skin: General: Skin is warm and dry. Neurological: General: No focal deficit present. Mental Status: He is alert and oriented to person, place, and time. Motor: Tremor present. Psychiatric: Mood and Affect: Mood normal. Behavior: Behavior normal. Ear Cerumen Removal Date/Time: 05/20/2025 9:03 AM Performed by: ROMA Davis Authorized by: ROMA Davis Consent: Consent obtained: Verbal Consent given by: Patient Risks, benefits, and alternatives were discussed: yes Risks discussed: Bleeding, infection, pain, TM perforation, incomplete removal and dizziness Alternatives discussed: No treatment, alternative treatment and referral Procedure details: Location: R ear Procedure type: curette Procedure outcomes: cerumen removed Post-procedure details: Inspection: Ear canal clear Hearing quality: Improved Procedure completion: Tolerated Assessment/Plan Diagnoses and all orders for this visit: Hearing loss of right ear due to cerumen impaction - Ear Cerumen Removal Right ear irrigated today with excellent results. Canal was clear and TM intact. Can use OTC Debroxprn. Allergic rhinitis due to pollen, unspecified seasonality - cetirizine (ZyrTEC) 10 MG tablet; Take 1 tablet (10 mg) by mouth Daily Refill provided on the above. Follow up for Appointment As Scheduled. documented in this encounter Plan of Treatment Upcoming Encounters Date Type Department Care Team (Late st Contact Info) Description 07/02/2025 3:10 PM EDT Procedure Visit [facility] [address] [facility] [address] [place] [address] Nish Alejandro DPM [address] [facility] [address] [place] [address] 11/11/2025 9:00 AM EST Office Visit [facility] [address] [facility] [address] [place] [id number] Lynn Ly PA [address] [facility] [address] [place] [address] documented as of this encounter Procedures Procedure Name Priority Date/Time Associated Diagnosis Comments FL REMOVAL IMPACTED CERUMEN INSTRUMENTATION UNILAT Routine 05/20/2025 9:03 AM EDT Hearing loss of right ear due to cerumen impaction documented in this encounter Results * FL REMOVAL IMPACTED CERUMEN INSTRUMENTATION UNILAT (05/20/2025 9:03 AM EDT) Narrative Lynn Ly PA - 05/20/2025 9:03 AM EDT ROMA Davis 05/20/2025 9:06 AM Ear Cerumen Removal Date/Time: 05/20/2025 9:03 AM Performed by: ROMA Davis Authorized by: ROMA Davis Consent: Consent obtained: Verbal Consent given by: Patient Risks, benefits, and alternatives were discussed: yes Risks discussed: Bleeding, infection, pain, TM perforation, incomplete removal and dizziness Alternatives discussed: No treatment, alternative treatment and referral Procedure details: Location: R ear Procedure type: curette Procedure outcomes: cerumen removed Post-procedure details: Inspection: Ear canal clear Hearing quality: Improved Procedure completion: Tolerated Lynn BRANDON IN CLINIC/BEDSIDE ORDERABLES F inal Result documented in this encounter Visit Diagnoses Diagnosis Hearing loss of right ear due to cerumen impaction- Primary Allergic rhinitis due to pollen, unspecified seasonality documented in this encounter Additional Health Concerns Assessment Noted Time PHQ-9 Depression Total Score: 0 05/11/20 25 12:00 PM EDT documented as of this encounter Care Teams Him Manager Relationship Specialty Start Date End Date Emilia Mayo MD [address] [facility] [address] [place] [address] PCP - General Family Medicine 01/31/24 documented as of this encounter
--- OUTSIDE RECORDS SUMMARY | 2025-05-20 09:22 | XMS_ITS | Encounter Summary ---
Author Organization [facility] Address [id number] [address] [place] [address] Care Team Providers Care Zoogler Name Role Phone Jun Carrasco MD Primary Care Provider [phone] Reason for Visit * Reason Comments Med Refill Encounter Details Date Type Department Care Team (Late st Contact Info) Description 02/08/2024 Refill [facility] [address] [place] [phone] Jun Carrasco MD [address] [place] [address] Vitamin D deficiency Social History Tobacco Use Types Packs/Day Years Used Date Smoking Tobacco: Former Alcohol Use Standard Drinks/Week Comments No 0 (1 standard drink = 0.6 oz pur e alcohol) PHQ-2 Answer Date Recorded Total Score 0 07/19/2023 Childcare Answer Date Recorded Childcare Unknown 04/16/2019 Employment Answer Date Recorded Employment Unknown 04/16/2019 Hunger Screening Answer Date Recorded Within the past 12 months we worried whether our food would run out before we got money to buy more. Never True 05/22/2023 Within the past 12 months th e food we bought just didn't last and we didn't have money to get more. Never True 05/22/2023 Purpose - Life Answer Date Recorded Purpose and direction in life Unknown Sex and Gender Information Value Date Recorded Sex Assigned at Male 03/22/2023 1:48 PM EDT Legal Sex Male 11:56 AM EDT Gender Identity Not on file Sexual Orientation Not on file documented as of this encounter Plan of Treatment Not on file documented as of this encounter Visit Diagnoses Diagnosis Vitamin D deficiency documented in this encounter Additional Health Concerns Assessment Noted Time PHQ-9 Depression Total Score: 0 07/19/20 23 9:00 AM EDT documented as of this encounter Care Teams Zoogler Relationship Specialty Start Date End Date Jun Carrasco MD [address], [facility] [place] [address] PCP - General Internal Medicine 03/23/23 [facility] Nurse - [employer] 06/14/23 documented as of this encounter
--- OUTSIDE RECORDS SUMMARY | 2025-05-20 09:22 | XMS_ITS | Clinical Summary ---
Author Organization [employer] [facility] [employer] Address [id number] [address] [place] [address] Care Team Providers Care Business Administration Professor Name Role Phone Jun Carrasco MD Primary Care Provider [phone] Allergies Active Allergy Reactions Criticality Noted Date Comments Penicillins Hives 05/02/2017 Medications tamsulosin (FLOMAX) 0.4 mg capsule,extended release 24hr Take 0.4 mg by mouth nightly. Active busPIRone (BUSPAR) 10 mg tabletIndication s:Essential tremor,Anxiety Take 2 tablets (20 mg total) by mouth 3 (three) times a day. 540 tablet 4 3 Active fluticasone propionate (FLONASE) 50 mcg/actuation nasal sprayIndications :Allergic rhinitis due to other allergic trigger, unspecified seasonality Administer 1 spray into each nostril in the morning. 36.4 mL 4 3 Active calcium carbonate-vitami n D3 (OSCAL 500 + D) 500 mg(1,250mg) -200 units per tabletIndication s:Vitamin D deficiency Take 1 tablet by mouth in the morning and 1 tablet in the evening. Take with meals. 180 tablet 3 3 Active omeprazole (PriLOSEC) 20 mg capsuleIndicatio ns:Gastroesophag eal reflux disease, unspecified whether esophagitis present take 1 capsule by mouth in the morning 90 capsule 4 4 Active celecoxib (CeleBREX) 200 mg capsuleIndicatio ns:Arthritis TAKE 1 CAPSULE BY MOUTH TWICE DAILY NEEDED FOR PAIN 180 capsule 4 5 Active Active Problems Patient Care Coordination No te Formatting of this note migh t be different from the original. Anxiety/ BPH Care Plan: [06/14/2023] TH BLACK JACK DEALER Added: Nurse to instruct on: the purpose of your medications and the importance of adherence the importance of your care plan the importance of preventative screenings and what they mean to your health your Anxiety Disorders and BPH, its diagnosis and treatment the importance of recognizing trouble concentrating or thinking about anything other than the present worry, feeling weak or tired, trembling, sweating, breathing rapidly (hyperventilation), having an increased heart rate, having a sense of impending danger, panic or doom, and feeling nervous, restless or tense as a S&S of your Anxiety Disorders the importance of recognizing excessive urination at night, dribbling after urination, frequent urination, sense of incomplete bladder emptying, weak urinary stream, incontinence, and sexual dysfunction as a S&S of your BPH Nurse to assist in: scheduling your appointments, as needed setting a goal to continue with current treatment plans, do regular physical activity, take fall precautions, and spend quality time with family or friends daily Patient to verbalize understanding of: the importance of your care plan keeping a written list of your medications preventative screenings and what they mean to your health your medications and the importance of adherence your Anxiety Disorders, its diagnosis, process and treatment your BPH, its diagnosis, process and treatment the importance of recognizing trouble concentrating or thinking about anything other than the present worry, feeling weak or tired, trembling, sweating, breathing rapidly (hyperventilation), having an increased heart rate, having a sense of impending danger, panic or doom, and feeling nervous, restless or tense as a S&S of your Anxiety Disorders the importance of recognizing excessive urination at night, dribbling after urination, frequent urination, sense of incomplete bladder emptying, weak urinary stream, incontinence, and sexual dysfunction as a S&S of your BPH Patient to commit to: continue with current treatment plans do regular physical activity take fall precautions spend quality time with family or friends daily 2022 Wellness Goals: Over the next 12 months, Patient will go to appointments with: Primary Care Provider Completed 06/28/23, STACIE Neurologist Urologist Tree And Shrub Technician Over the next 12 months, Patient will complete the following tests, immunizations, and preventative screenings: Annual Wellness Visit Completed 07/19/23, STACIE Tdap Vaccine Shingles vaccine COVID-19 Vaccination Booster Depression Screening Flu vaccine Prostate Screening 2022 Education: 06/14/23: Intro call, wellness goals, med rec - STACIE 07/17/23: CCM f/u call, PCP appt, preventative care recommendations and education - STACIE Problem Noted Date Diagnosed Date Anxiety 05/31/2023 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 04/07/2016 03/22/2023 S/P deep brain stimulator placement 02/29/2016 03/22/2023 Microscopic hematuria 03/23/2015 03/22/2023 Calculus of kidney 03/23/2015 03/22/2023 Headache 12/29/2014 03/22/2023 Essential tremor 09/29/2014 03/22/2023 Immunizations Immunization Administration Dates Next Due Pneumococcal Conjugate 13-Valent 08/30/2015 Pneumococcal Polysaccharide 09/18/2018, 5 Family History Medical History Relation Name Comments Cancer Mother leukemia Relation Name Status Comments Father Mother Social History Tobacco Use Types Packs/Day Years Used Date Smoking Tobacco: Former Tobacco Cessation:Counseling Given: Not Answered Alcohol Use Standard Drinks/Week Comments No 0 [...] on file Sexual Orientation Not on file Last Filed Vital Signs Vital Sign Reading Time Taken Comments Blood Pressure 128/70 09/06/2023 9:55 AM EDT Pulse 62 09/06/2023 9:55 AM EDT Temperature 36.5 C (97.7 F) 09/06/2023 9:55 AM EDT Respiratory Rate 10 05/09/2017 11:50 AM EDT Oxygen Saturation 95% 09/06/2023 9:55 AM EDT Inhaled Oxygen Concentration - - Weight 94.2 kg (207 lb 9.6 oz) 09/06/2023 9:55 A M EDT Height 188 cm (6' 2 ) 09/06/2023 9:55 AM EDT Body Mass Index 26.65 09/06/2023 9:55 AM EDT Plan of Treatment Health Maintenance Due Date Last Done Comments DTaP,Tdap and Td Vaccines (1 - Tdap) 1965 Zoster (Shingles) Vaccine (1 of 2) 1996 COVID-19 Vaccine (2023-2 5 season) 2024 08/26/2023, 08/11/2022, 02/17/2022, Additional history exists Depression Screening 07/19/2024 07/19/2023 Fall Risk Screening 07/19/2024 07/19/2023 Medicare Annual Wellness Visit 07/19/2024 07/19/2023 Tobacco Screening 09/06/2024 09/06/2023 Influenza Vaccine 07/06/2025 Medical Devices Not on file Insurance MEDICARE [facility] Care Teams Business Administration Professor Relationship Specialty Start Date End Date Jun Carrasco MD [address] [place] [address] PCP - General Internal Medicine 03/23/23 [facility]
--- OUTSIDE RECORDS SUMMARY | 2025-05-20 09:22 | XMS_ITS | Encounter Summary ---
Author Organization [employer] [facility] [employer] Address [id number] [address] [place] [address] Care Team Providers Care Mortician Investigator Name Role Phone Jun Reynoso MD Primary Care Provider [phone] Encounter Details Date Type Department Care Team (Late st Contact Info) Description 08/24/2023 Telephone [facility] [address] [place] [address] [address] [place] [address] Miguelangel Gonzalez CMA Social History Tobacco Use Types Packs/Day Years [...] on file documented as of this encounter Miscellaneous Notes * Telephone Encounter - Miguelangel Gonzalez CMA - 08/24/2023 10:01 AM EDT Pharmacy called inquiring if quantity could be increased to 90 capsules instead of 60 for Vitamin D3? Please advise if acceptable? * Telephone Encounter - Jun Reynoso MD - 08/24/2023 10:01 AM EDT Yup that's cool, need another script or can you give verbal? Thanks, JUN REYNOSO MD 08/24/23 * Telephone Encounter - Miguelangel Gonzalez CMA - 08/24/2023 10:01 AM EDT Verbal was sufficient. Called and taken care of. documented in this encounter Plan of Treatment Not on file documented as of this encounter Visit Diagnoses Not on filedocumented in this encounter Additional Health Concerns Assessment Noted Time PHQ-9 Depression Total Score: 0 07/19/20 9:00 AM EDT documented as of this encounter Care Teams Mortician Investigator Relationship Specialty Start Date End Date Jun Reynoso MD [address] [facility] [place] [address] PCP - General Internal Medicine 03/23/23 [facility] CCM Nurse - [employer] 06/14/23 documented as of this encounter
--- OUTSIDE RECORDS SUMMARY | 2025-05-20 09:23 | XMS_ITS | Encounter Summary ---
Author Organization [facility] Address [address] [place] [address] Care Team Providers Care Crimping Machine Operator For Metal Name Role Phone Emilia Lucas MD Primary Care Provider [phone] Encounter Details Date Type Department Care Team (Late Contact Info) Description 07/15/2024 Clinisync Result Encounter [facility] External Department Unsolicited Emilia Lucas MD [address] [facility] 110 [place] [address] Social History Tobacco Use Types Packs/Day Years Used Date Smoking Tobacco: Former Cigarettes Passive Smoke Exposure: Past Smokeless Tobacco: Never Alcohol Use Standard Drinks/Week Comments Never 0 (1 standard drink = 0.6 oz pur e alcohol) PHQ-2 Answer Date Recorded Patient Health Questionnaire-2 Score 0 05/05/2024 Sex and Gender Information Value Date Recorded Sex Assigned at Not on file Legal Sex Male 6:48 PM EDT Gender Identity Not on file Sexual Orientation Not on file documented as of this encounter Plan of Treatment Upcoming Encounters Date Type Department Care Team (Late Contact Info) Description 07/02/2025 3:10 PM EDT Procedure Visit [facility] [address] [facility] 120 [place] [address] Nish Alejandro, DPM 3006 [facility] 5 [place] [address] 11/11/2025 9:00 AM EST Office Visit [facility] [address] [facility] 110 [place] [address] Lynn Ly, PA [address] [facility] 110 [place] [address] documented as of this encounter Procedures Procedure Name Priority Date/Time Associated Diagnosis Comments CA ECHO DOPPLER COMPLETE 07/15/2024 1:33 PM EDT documented in this encounter Results * CA ECHO DOPPLER COMPLETE (07/15/2024 1:33 PM EDT) Anatomical Region Laterality Modality Other 07/15/2024 1:33 PM EDT Narrative 07/15/2024 1:35 [place] [address] Cardiology Report Signed Patient: CHAZ MARROQUIN MR#: [id number] : 1945 Acct:[id number] Age/Sex: 78 / M ADM Date: 07/15/24 Loc: CARD Attending Dr: EMILIA LUCAS Ordering Physician: EMILIA LUCAS Date of Service: 07/15/24 Procedure(s): CA echo doppler complete Accession Number(s): [id number] cc: EMILIA LUCAS Patient Name: CHAZ MARROQUIN MR#: [id number] : 1945 Exam Date: 07/15/2024 Ordering Doctor: DR EMILIA LUCAS M.D. ECHOCARDIOGRAM REPORT PROCEDURE: CA ECHO DOPPLER COMPLETE INDICATIONS: Chest pain, Atrial fibrillation COMPARISON: None. DESCRIPTION: COMPLETE ECHOCARDIOGRAM Real-time transthoracic echocardiography with 2D, M-mode, spectral and color flow Doppler performed. QUALITY: Technical quality was good. LEFT VENTRICLE: Normal chamber size. Normal left ventricular wall thickness. LV EF: Global left ventricular systolic function is normal; visually estimated ejection fraction is 55%. Unable to assess regional wall motion abnormalities. DIASTOLIC: Normal diastolic function. ATRIAL SEPTUM: Inadequately seen LEFT ATRIUM: Normal chamber size. RIGHT ATRIUM: Normal chamber size. RIGHT VENTRICLE: Normal chamber size. Normal right ventricular systolic function. TRICUSPID VALVE: Normal mobility and thickness. No stenosis with trivial regurgitation. No evidence of pulmonary hypertension. RVSP 19mmHg MITRAL VALVE: Mildly thickened with normal mobility. No evidence of mitral valve stenosis. Mild mitral annular calcification. Mild to moderate mitral regurgitation. AORTIC VALVE: Normal trileaflet appearance. Thickened aortic valve. Normal leaflet mobility. No evidence of aortic valve stenosis. Trivial aortic regurgitation. AORTIC ROOT: Normal diameter and appearance. PULMONIC VALVE: Normal thickness and mobility. No stenosis. Trivial regurgitation. PERICARDIUM: Trivial posterior pericardial effusion. IVC: Collapses with inspirations. Normal size. CONCLUSION: Global left ventricular systolic function is normal; visually estimated ejection fraction is 55%. Mild to moderate mitral regurgitation. Trivial posterior pericardial effusion. Adult Echocardiography Procedure Report Left Ventricle LVEDD (3.7 - 5.6 cm): 4.49 cm LVESD (2.2 - 4.0 cm): 2.95 cm LVIVS thickness (0.6 - 1.2 cm): 1.03 cm LVPW thickness (0.5 - 1.0 cm): 1.05 cm e': 0.09 m/s E - e': 8.03 LVOT Max Gradient: 2.00 mm[Hg] LVOT Area (cm2): 0.71 m/s Peak Velocity (LVOT): 0.71 m/s Mean Velocity (LVOT): 0.51 m/s LVOT Diameter 2.06 cm Left Ventricular Ejection Fraction: 52.06 % Left Atrium LA Volume Index (2D A2C): 33.27 ml/m2 Left Atrium Systolic Dimension: 4.01 cm Mitral Valve MV E to A Ratio: 0.87 MV Max Gradient: MV Mean Gradient: Mitral Valve A-Wave Peak Velocity: 0.85 m/s Mitral Valve E-Wave Peak Velocity: 0.74 m/s Cardiovascular Orifice Area: Right Ventricle RV Internal Diastolic Dimension: 3.40 cm Aorta AO Root Diam: 3.01 cm Ascending Ao Diam: 2.27 cm Aortic Valve AoV Area (Peak Pramod): 2.10 cm2, 2.10 cm2 AoV Area (VTI): 1.76 cm2, 1.76 cm2 Deceleration [place]: Pressure Half-Time: Peak Velocity(Antegrade Flow): 1.12 m/s Peak Gradient(Antegrade Flow): 5.05 mm[Hg] Mean Velocity(Antegrade Flow): 0.81 m/s Mean Gradient(Antegrade Flow): 3.00 mm[Hg] Velocity Time Integral: 28.49 cm Tricuspid Valve Peak Velocity (Regurgitant Flow): 2.00 m/s, 1.91 m/s, 2.00 m/s Peak Velocity: Pulmonic Valve Mean Gradient: 3.66 mm[Hg], 4.13 mm[Hg] Mean Velocity: 0.88 m/s, 0.94 m/s Peak Velocity: 1.32 m/s Peak Gradient: 6.49 mm[Hg], 7.56 mm[Hg] Right Atrium Right Atrium Systolic Pressure: 62.27 ml, 62.27 ml Dictated by: Neda Aguilar M.D. on 07/15/2024 at 13:28 Approved by: Neda Aguilar M.D. on 07/15/2024 at 13:33 Dictated By: Neda Aguilar M.D. Signed By: 07/15/24 1335 DD/ 32 TD/TT: Claims Auditor: Procedure Note Radiology, Radiologist, MD - 07/15/2024 [place] [address] Cardiology Report Signed Patient: CHAZ MARROQUIN FMR#: [id number] : 1945cct:[id number] Age/Sex: 78 / MADM Date: 07/15/24 Loc: CARD Attending Dr: EMILIA LUCAS Ordering Physician: EMILIA LUCAS Date of Service: 07/15/24 Procedure(s): CA echo doppler complete Accession Number(s): [id number] cc: EMILIA LUCAS Patient Name: CHAZ MARROQUIN MR#: [id number] : 1945 Exam Date: 07/15/2024 Ordering Doctor: DR EMILIA LUCAS M.D. ECHOCARDIOGRAM REPORT PROCEDURE: CA ECHO DOPPLER COMPLETE INDICATIONS: Chest pain, Atrial fibrillation COMPARISON: None. DESCRIPTION: COMPLETE ECHOCARDIOGRAM Real-time transthoracic echocardiography with 2D, M-mode, spectral and color flow Dopplerperformed. QUALITY: Technical quality was good. LEFT VENTRICLE: Normal chamber size. Normal left ventricular wall thickness. LV EF: Global left ventricular systolic function is normal; visually estimated ejection fraction is 55%. Unable to assess regional wall motion abnormalities. DIASTOLIC: Normal diastolic function. ATRIAL SEPTUM: Inadequately seen LEFT ATRIUM: Normal chamber size. RIGHT ATRIUM: Normal chamber size. RIGHT VENTRICLE: Normal chamber size. Normal right ventricularsystolic function. TRICUSPID VALVE: Normal mobility and thickness. No stenosis withtrivial regurgitation. No evidence of pulmonary hypertension. RVSP 19mmHg MITRAL VALVE: Mildly thickened with normal mobility. No evidence of mitral valve stenosis. Mild mitral annular calcification. Mild tomoderate mitral regurgitation. AORTIC VALVE: Normal trileaflet appearance. Thickened aortic valve. Normal leaflet mobility. No evidence of aortic valve stenosis. Trivialaortic regurgitation. AORTIC ROOT: Normal diameter and appearance. PULMONIC VALVE: Normal thickness and mobility. No stenosis. Trivial regurgitation. PERICARDIUM: Trivial posterior pericardial effusion. IVC: Collapses with inspirations. Normal size. CONCLUSION: Global left ventricular systolic function is normal;visually estimated ejection fraction is 55%. Mild to moderate mitralregurgitation. Trivial posterior pericardial effusion. Adult Echocardiography Procedure Report Left Ventricle LVEDD (3.7 - 5.6 cm): 4.49 cm LVESD (2.2 - 4.0 cm): 2.95 cm LVIVS thickness (0.6 - 1.2 cm): 1.03 cm LVPW thickness (0.5 - 1.0 cm): 1.05 cm e': 0.09 m/s E - e': 8.03 LVOT Max Gradient: 2.00 mm[Hg] LVOT Area (cm2): 0.71 m/s Peak Velocity (LVOT): 0.71 m/s Mean Velocity (LVOT): 0.51 m/s LVOT Diameter 2.06 cm Left Ventricular Ejection Fraction: 52.06 % Left Atrium LA Volume Index (2D A2C): 33.27 ml/m2 Left Atrium Systolic Dimension: 4.01 cm Mitral Valve MV E to A Ratio: 0.87 MV Max Gradient: MV Mean Gradient: Mitral Valve A-Wave Peak Velocity: 0.85 m/s Mitral Valve E-Wave Peak Velocity: 0.74 m/s Cardiovascular Orifice Area: Right Ventricle RV Internal Diastolic Dimension: 3.40 cm Aorta AO Root Diam: 3.01 cm Ascending Ao Diam: 2.27 cm Aortic Valve AoV Area (Peak Pramod): 2.10 cm2, 2.10 cm2 AoV Area (VTI): 1.76 cm2, 1.76 cm2 Deceleration [place]: Pressure Half-Time: Peak Velocity(Antegrade Flow): 1.12 m/s Peak Gradient(Antegrade Flow): 5.05 mm[Hg] Mean Velocity(Antegrade Flow): 0.81 m/s Mean Gradient(Antegrade Flow): 3.00 mm[Hg] Velocity Time Integral: 28.49 cm Tricuspid Valve Peak Velocity (Regurgitant Flow): 2.00 m/s, 1.91 m/s, 2.00 m/s Peak Velocity: Pulmonic Valve Mean Gradient: 3.66 mm[Hg], 4.13 mm[Hg] Mean Velocity: 0.88 m/s, 0.94 m/s Peak Velocity: 1.32 m/s Peak Gradient: 6.49 mm[Hg], 7.56 mm[Hg] Right Atrium Right Atrium Systolic Pressure: 62.27 ml, 62.27 ml Dictated by: Neda Aguilar M.D. on 07/15/2024 at 13:28 Approved by: Neda Aguilar M.D. on 07/15/2024 at 13:33 Dictated By: Neda Aguilar M.D. Signed By:07/15/24 1335 DD/ 32 TD/TT: Claims Auditor: us Emilia Lucas MD [facility] Final Result documented in this encounter Visit Diagnoses Not on filedocumented in this encounter Care Teams Crimping Machine Operator For Metal Relationship Specialty Start Date End Date Emilia Lucas MD [address] [place] [address] PCP - General Family Medicine 01/31/24 documented as of this encounter
--- OUTSIDE RECORDS SUMMARY | 2025-05-20 09:23 | XMS_ITS | Clinical Summary ---
Author Organization [facility] Address [facility] [place] [address] Care Team Providers Care Fountain Brush Assembler Name Role Phone Emilia Mayo MD Primary Care Provider [phone] Allergies Active Allergy Reactions Criticality Noted Date Comments Bee Sting Rash 11/01/2021 Penicillins Hives 03/16/2014 Seasonal Allergies Unknown 04/29/2020 Medications * This document contains information received from the source organization and may not represent a complete record from that organization. docusate sodium (COLACE) 100 mg capsule Take 1 capsule by mouth twice daily as needed for Constipation . 60 capsule 0 03/11/2015 Active fluticasone (FLONASE) 50 mcg/actuation nasal spray Use 1 [place] in each nostril once daily. Active aspirin, enteric coated (ASPIRIN, ENTERIC COATED) 81 mg EC tablet Take 81 mg by mouth once daily. Active omeprazole (PRILOSEC) 20 mg capsule Take 20 mg by mouth once daily. Active Cholecalciferol , Vitamin D3, 125 mcg (5,000 unit) cap Take 1 capsule by mouth every morning. 08/24/2023 Active busPIRone (BUSPAR) 10 mg tabletIndicatio ns:Anxiety Take 1 tablet by mouth three times a day. 270 tablet 3 08/18/2024 Active doxycycline hyclate (VIBRAMYCIN) 100 mg capsule Take 1 capsule by mouth every 12 hours. 08/09/2024 Active cetirizine (ZYRTEC) 10 mg tablet once daily. 08/09/2024 Active celecoxib (CELEBREX) 200 mg capsule take 1 capsule by mouth twice daily as needed for pain 05/20/2024 Active baclofen 10 mg tablet Take 10 mg by mouth three times a day. 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 Recurrent nephrolithiasis 04/07/2016 S/P deep brain stimulator placement 02/29/2016 Renal calculi 03/23/2015 Calculus of kidney 03/23/2015 Microscopic hematuria 03/23/2015 Ureteral calculus 02/25/2015 Head ache 12/30/2014 Persistent headaches 12/29/2014 Essential tremor 09/29/2014 Encounters Date Type Department Care Team Description 02/18/2025 Telephone Neurology [address] [address] Mila Andino, COMPLIANCE INVESTIGATOR.SEARCH ENGINE OPTIMIZATION ANALYST Patient Update from Last 3 Months Family History Medical History Relation Comments leukemia [Other] Mother tremors Sister Alzheimer's Disease No Family History Anesthesia Problems No Family History Bipolar disorder No Family History Blood Clots No Family History Blood Disease No Family History Coronary Artery Disease No Family History DVT No Family History Dementia No Family History Diabetes No Family History Factor 5 Leiden No Family History Heart disease No Family History Hyperlipidemia No Family History Hypertension No Family History Multiple Sclerosis No Family History Parkinson s Disease No Family History Schizophrenia No Family History Stroke No Family History Systemic Lupus Erythematosus No Family History Thyroid No Family History Relation Status Comments Daughter Mother Sister Social History Tobacco Use Types Packs/Day Years Used Date Smoking Tobacco: Former Cigarettes 1 25 0 11/05/1969 - 11/05/1994 Smokeless Tobacco: Never Tobacco Cessation:Counseling Given: Not Answered Alcohol Use Standard Drinks/Week Comments No 0 (1 standard drink = 0.6 oz pur e alcohol) quit 1991 PHQ-2 Answer Date Recorded PHQ-2 score 3 08/18/2024 Area Deprivation Index Answer Date Thaddeus rded National Score (1-100), lower number is lower ri sk 63 08/18/2024 State Score (1-10), lower number is lower risk 4 08/18/2024 Data from: https://www.neighborhoodatlas.medicine.[facility]/. Last address used for calculation [address] 08/18/2024 Sex and Gender Information Value Date Recorded Sex Assigned at Not on file Legal Sex Male 11:31 AM EST Gender Identity Not on file Sexual Orientation Not on file Occupation Industry Job Start Date Job End Date [employer] Not on file Not on file Not on file Last Filed Vital Signs Vital Sign Reading Time Taken Comments Blood Pressure 118/73 02/16/2025 10:50 AM EDT Pulse 85 02/16/2025 10:50 AM EDT Temperature 36 C (96.8 F) 01/06/2022 2:18 PM EST Respiratory Rate 16 01/06/2022 2:18 PM EST Oxygen Saturation 96% 02/16/2025 10: 50 AM EDT Inhaled Oxygen Concentration - - Weight 97.4 kg (214 lb 11.7 oz) 025 10:50 AM EDT Height 188 cm (6' 2 ) 02/16/2025 10:50 AM EDT Body Mass Index 27.57 02/16/2025 10:50 AM EDT Plan of Treatment Upcoming Encounters Date Type Department Care Team (Late st Contact Info) Description 08/18/2025 2:00 PM EDT Office Visit Neurology [address] [address] Mila Andino, COMPLIANCE INVESTIGATOR.SEARCH ENGINE OPTIMIZATION ANALYST [address] [place] [address] 6 Month DBS adjustment Health Maintenance Due Date Last Done Comments Anxiety Screening 1963 Depression Screening 1963 Hepatitis C Screening 1963 DTaP,Tdap,Td Vaccine (1 - Tdap) 1965 Shingrix Vaccine (1 of 2) 1996 Medicare Annual Wellness Visit 03/05/2012 Advance Directive Discussion 11/05/2024 Covid-19 Vaccine (8 2023-2 5 season) 2025 09/10/2024, 08/26/2023, 08/11/2022, Additional history exists Influenza Vaccine (#1) 2025 Diabetes Screening 06/29/2026 06/29/2023, 0 06/29/2023, 11/21/2021, Additional history exists Pneumococcal Vaccine: 50+ Completed 2017, 08/30/2015, 08/05/2015 RSV Vaccine Completed 09/10/2024 Medical Devices Implanted Type Area Night Shift Device Identifier Shelf Expiration Date Model / Serial / Lot Stretch-Coil Dbs Extension 60 - [id number] Implanted:Qty: 1 on 05/15/2014 at [facility] Implant [employer] 03/26/2018 [id number] 60 / [id number] 1V / Lead Nrstm 40cm Actv Dbs - [id number] Implanted:Qty: 1 on 05/05/2014 at [facility] Lead [employer] 05/14/2017 [id number] / / [id number] Description:LEAD ONLY Ipg Activa Sc Dbs Coil Extn - [id number] Implanted:Qty: 1 on 05/15/2014 at [facility] Neurostimulator Right: Chest [employer] 09/18/2015 [id number] / [id number] 8H / Neurostimulator Activa Sc 0-10.5v 2-250hz 0-25.5ma 2.4inx2.2in .4in - [id number] Implanted:Qty: 1 on 12/14/2017 at [facility] Neurostimulator Right: Chest Wall [employer] 03/18/2019 [id number] / / [id number] Neurostimulator Activa Rc 10.5-V 2-250hz 2.2inx2.2in .4in Implantable 2 - [id number] Implanted:Qty: 1 on 01/06/2022 at [facility] Neurostimulator Right: Chest [employer] 07/19/2022 [id number] / [id number] 6H / Stent Uret 6fr 26cm W/O Gw Inl - [id number] Implanted:Qty: 1 on 02/25/2015 at [facility] Urologic Stents Right: Ureter [employer] 10/04/2019 [id number] / / [id number] Description:no string Stent Uret 6fr 26cm W/O Gw Inl - [id number] Implanted:Qty: 1 on 02/25/2015 at [facility] Urologic Stents Left: Ureter [employer] 10/04/2019 [id number] / / [id number] Stent Uret 6fr 26cm W/O Gw Inl - [id number] Implanted:Qty: 1 on 03/11/2015 at [facility] Urologic Stents Right: Ureter [employer] 10/04/2019 [id number] / / [id number] Stent Uret 6fr 26cm W/O Gw Inl - [id number] Implanted:Qty: 1 on 03/11/2015 at [facility] Urologic Stents Left: Ureter [employer] 11/02/2019 [id number] / / [id number] Procedures Procedure Name Priority Date/Time Associated Diagnosis Comments BASIC METABOLIC PANEL Routine 11/21/2021 12:06 PM EST Essential tremor from Last 3 Months or Most Recently Relevant to Health Maintenance Results * BASIC METABOLIC PNL (11/21/2021 12:06 PM EST) Pathologist [facility] Glucose 86 74 - 99 mg/dL 11/21/2021 2:08 PM EST [facility] Comment: The [place] Diabetes Association (ADA) provides guidance for cutoff values for fasting glucose and random glucose. The ADA defines fasting as no caloric intake for at least 8 hours. Fasting plasma glucose results between 100 to 125 mg/dL indicate increased risk for diabetes (prediabetes). Fasting plasma glucose results greater than or equal to 126 mg/dL meet the criteria for diagnosis of diabetes. In the absence of unequivocal hyperglycemia, results should be confirmed by repeat testing. In a patient with classic symptoms of hyperglycemia or hyperglycemic crisis, random plasma glucose results greater than or equal to 200 mg/dL meet the criteria for diagnosis of diabetes. Reference: Standards of Medical Care in Diabetes 2016, [place] Diabetes Association. Diabetes Care. 2016.39(Suppl 1). BUN 17 9 - 24 mg/dL 11/21/2021 2:08 PM EST [facility] Creatinine 0.81 0.73 - 1.22 mg/dL 11/21/2021 2:08 PM EST [facility] Sodium 138 136 - 144 mmol/L 11/21/2021 2:08 PM EST [facility] Potassium 4.2 3.7 - 5.1 mmol/L 11/21/2021 2:08 PM EST [facility] Chloride 103 97 - 105 mmol/L 11/21/2021 2:08 PM EST [facility] CO2 24 22 - 30 mmol/L 11/21/2021 2:08 PM EST [facility] Anion Gap 11 9 - 18 mmol/L 11/21/2021 2:08 PM EST [facility] Calcium 9.8 8.5 - 10.2 mg/dL 11/21/2021 2:08 PM EST [facility] eGFR- >60 11/21/2021 2:08 PM EST [facility] eGFR-All Other Races >60 . 11/21/2021 2:08 PM [facility] Comment: eGFR (Estimated GFR) Units of measure: mL/min/1.73 meters squared eGFR is derived from the reexpressed MDRD Study equation using the following parameters: serum creatinine, age, gender and race. The creatinine assay has been calibrated to be traceable to IDMS. An eGFR <60 mL/min/1.73m2 for >3 months is consistent with chronic kidney disease. Refer to KDOQI guidelines for clinical interpretation. In patients with unstable renal function, e.g. those with acute kidney injury, the eGFR may not accurately reflect actual GFR. Note: On 12/31/2021, the eGFR calculation will be updated to the NKF-ASN Task Force recommended 2020 CKD-EPI creatinine equation which does not include a race variable. For more information or to access a 2020 CKD-EPI calculator, visit the National Kidney Foundation website at kidney.org/professionals/kdoqi/gfr_calculator. Blood OTHER / Unknown 11/21/2021 1 2:06 PM EST 11/21/2021 12:08 PM EST Israel Page PA-C LABORATORY Final Result [facility] [address] [place] [address] [facility] [address] [place] [address] from Last 3 Months or Most Recently Relevant to Health Maintenance Insurance [facility] MEDIC[facility] Care Teams Fountain Brush Assembler Relationship Specialty Start Date End Date Emilia Mayo MD [address] [address] PCP - General Family Medicine 02/16/25
--- OUTSIDE RECORDS SUMMARY | 2025-05-20 09:23 | XMS_ITS | Encounter Summary ---
Author Organization [facility] Address [address] [place] [address] Care Team Providers Care Aircraft Accessories Mechanic Name Role Phone Emilia Mayo MD Primary Care Provider [phone] Encounter Details Date Type Department Care Team (Latest Contact Info) Description 05/20/2025 Travel Social History Tobacco Use Types Packs/Day Years [...] on file documented as of this encounter Functional Status * Over the [...] Witt MA documented as of this encounter Plan of Treatment Upcoming Encounters Date Type Department Care Team (Late st Contact Info) Description 07/02/2025 3:10 PM EDT Procedure [facility] 112 [facility] 120 [place] [address] Nish Alejandro, DPM 3006 [facility] 5 [place] [address] 11/11/2025 9:00 AM EST Office Visit [facility] 112 [facility] 110 [place] [address] Lynn Ly PA [address] [facility] 110 [place] [address] documented as of this encounter Visit Diagnoses Not on filedocumented in this encounter Additional Health Concerns Assessment Noted Time PHQ-9 Depression Total Score: 0 05/11/20 25 12:00 PM EDT documented as of this encounter Care Teams Aircraft Accessories Mechanic Relationship Specialty Start Date End Date Emilia Mayo MD 112 [facility] 110 [place] [address] PCP - General Family Medicine 01/31/24 documented as of this encounter
--- OUTSIDE RECORDS SUMMARY | 2025-05-20 09:23 | XMS_ITS | Encounter Summary ---
Author Organization [facility] Address [address] [place] [address] Care Team Providers Care Senior Mechanical Design Engineer Name Role Phone Emilia Mayo MD Primary Care Provider [phone] Encounter Details Date Type Department Care Team (Late Contact Info) Description 05/06/2024 Abstract [facility] [address] [facility] [address] [place] [address] Emilia Mayo MD [address] [facility] 110 [place] [address] Social History Tobacco Use Types Packs/Day Years [...] EDT Procedure Visit [facility] [address] [place] [address] [place] [address] Nish Alejandro DPM 3[address] [facility] 5 [place] [address] 11/11/2025 9:00 AM EST Office Visit [facility] [address] [place] [address] [place] [address] Lynn Ly, ROMA [address] [facility] [address] [place] [address] documented as of this encounter Visit Diagnoses Not on filedocumented in this encounter Care Teams Senior Mechanical Design Engineer Relationship Specialty Start Date End Date Emilia Mayo MD 112 [facility] 110 [place] [address] PCP - General Family Medicine 01/31/24 documented as of this encounter
--- OUTSIDE RECORDS SUMMARY | 2025-05-20 09:23 | XMS_ITS | Encounter Summary ---
Author Organization [facility] Address [address] [place] [address] Care Team Providers Care Charging Operator Name Role Phone Emilia Mayo MD Primary Care Provider [phone] Encounter Details Date Type Department Care Team (Late Contact Info) Description 05/12/2025 Abstract [facility] [address] [place] [address] Emilia Mayo MD [address] [facility] 110 [place] [address] Social History Tobacco Use Types Packs/Day Years [...] PODIATRY [address] [place] [address] Nish Alejandro DPM 3006 [facility] 5 [place] [address] 11/11/2025 9:00 AM EST Office Visit [facility] [address] [place] [address] Lynn Ly, ROMA [address] [place] [address] documented as of this encounter Visit Diagnoses Not on filedocumented in this encounter Additional Health Concerns Assessment Noted Time PHQ-9 Depression Total Score: 0 05/11/20 25 12:00 PM EDT documented as of this encounter Care Teams Charging Operator Relationship Specialty Start Date End Date Emilia Mayo MD 112 [facility] 110 [place] [address] PCP - General Family Medicine 01/31/24 documented as of this encounter
--- OUTSIDE RECORDS SUMMARY | 2025-05-20 09:23 | XMS_ITS | Encounter Summary ---
Author Organization [facility] Address [address] [place] [address] Care Team Providers Care Skirt Panel Assembler Name Role Phone Emilia Mayo MD Primary Care Provider [phone] Encounter Details Date Type Department Care Team (Late Contact Info) Description 06/18/2024 Abstract [facility] [address] [place] [address] Emilia Mayo MD [address] [facility] 110 [place] [address] Social History Tobacco Use Types Packs/Day Years [...] PODIATRY [address] [place] [address] Nish Alejandro DPM 3006 [facility] [address] [place] [address] 11/11/2025 9:00 AM EST Office Visit [facility] [address] [place] [address] Lynn Ly, ROMA [address] [place] [address] documented as of this encounter Visit Diagnoses Not on filedocumented in this encounter Care Teams Skirt Panel Assembler Relationship Specialty Start Date End Date Emilia Mayo MD 112 [facility] 110 [place] [address] PCP - General Family Medicine 01/31/24 documented as of this encounter
--- OUTSIDE RECORDS SUMMARY | 2025-05-20 09:23 | XMS_ITS | Clinical Summary ---
Author Organization [facility] Address [address] [place] [address] Care Team Providers Care Weaving Professor Name Role Phone Emilia Mayo MD Primary Care Provider [phone] Allergies Active Allergy Reactions Criticality Noted Date Comments Bee Venom Rash Low 11/01/2021 Penicillins Hives,Rash Low 03/16/2014 Pollen Extract 12/26/2023 Other Reaction(s): Unknown Medications busPIRone (Buspar) 10 MG tablet Take 10 mg by mouth in the morning and 10 mg before bedtime. 04/06/20 23 Active fluticasone (Flonase) 50 MCG/ACT nasal spray Administer 1 spray into each nostril in the morning. Active omeprazole (PriLOSEC) [address] capsule Take 20 mg by mouth in the morning. Active aspirin (ASPIR) 81 MG EC tablet Take 81 mg by mouth Daily Active celecoxib (CeleBREX) 200 MG capsule TAKE 1 CAPSULE BY MOUTH TWICE DAILY NEEDED FOR PAIN 02/19/20 24 Active Calcium Carbonate-Vitam in D (Oyster Shell Calcium/D) 500-5 MG-MCG tablet Take 1 tablet by mouth 09/11/20 23 Active baclofen (Lioresal) 10 MG tabletIndicatio ns:Strain of lumbar region, subsequent encounter Take 1 tablet (10 mg) by mouth in the morning and 1 tablet (10 mg) in the evening and 1 tablet (10 mg) before bedtime. 90 tablet 1 11/24/19 25 Active Additional Information Patient taking differently:10 mg Oral 3 times daily, Morning, Evening, Bedtime,PRN, Reported on 05/20/2025 albuterol HFA 90 mcg/act inhaler INHALE 2 PUFFS BY MOUTH EVERY 4 TO 6 HOURS NEEDED SHORTNESS OF BREATH and FOR WHEEZING 04/01/20 25 Active Misc Natural Products (NEURIVA PO) Take 1 tablet by mouth 1 (one) time each day Active saccharomyces boulardii (Florastor) 250 MG capsule Take 250 mg by mouth Daily Active Azelastine HCl 137 MCG/SPRAY solutionIndicat ions:Seasonal allergic rhinitis due to pollen Administer 1 spray into affected nostril(s) in the morning and 1 spray before bedtime. 30 mL 5 05/11/20 25 Active cetirizine (ZyrTEC) 10 MG tabletIndicatio ns:Allergic rhinitis due to pollen, unspecified seasonality Take 1 tablet (10 mg) by mouth Daily 100 tablet 3 05/20/20 25 Active cholecalciferol 125 MCG (5000 UT) capsuleIndicati ons:Vitamin D deficiency, unspecified TAKE 1 CAPSULE BY MOUTH IN THE MORNING 60 capsule 02/12/20 24 025 Discontinu ed(Therapy completed) cetirizine (ZyrTEC) 10 MG tabletIndicatio ns:Allergic rhinitis due to pollen, unspecified seasonality Take 1 tablet (10 mg) by mouth Daily 100 tablet 3 08/05/20 24 025 Discontinu ed(Therapy completed) Azelastine HCl 137 MCG/SPRAY solutionIndicat ions:Seasonal allergic rhinitis due to pollen Administer 1 spray into affected nostril(s) in the morning and 1 spray before bedtime. Do all this for 14 days. 30 mL 03/04/20 25 025 Discontinu ed(Reorder ) predniSONE (Deltasone) 20 MG tablet Take 20 mg by mouth in the morning and 20 mg before bedtime. 04/01/20 25 025 Discontinu ed(Therapy completed) cefuroxime (Ceftin) 500 MG tabletIndicatio ns:Simple chronic bronchitis (HCC) Take 1 tablet (500 mg) by mouth in the morning and 1 tablet (500 mg) before bedtime. Do all this for 10 days. 20 tablet 04/14/20 25 025 Fluticasone-Ume clidin-Vilant (Trelegy Ellipta) 200-62.5-25 MCG/ACT aerosol powderIndicatio ns:Simple chronic bronchitis (HCC) Inhale 1 puff Daily 1 each 04/14/20 25 025 Discontinu ed(Other) Active Problems Problem Noted Date Diagnosed Date Neuropathy 05/11/2025 Overweight 05/11/2025 Vitamin D deficiency 05/11/2025 Simple chronic bronchitis 04/14/2025 Assessment & Plan (04/14/2025 2:45 PM EDT): Add Probiotic to help replenish the good bacteria that are destroyed by the Antibiotics Florastor Florajen Align or try Activia in Yogurt Probiotics reduce the risk of antibiotic induced diarrhea Atrial fibrillation 10/06/2024 Excessive sweating 10/06/2024 Gastroesophageal reflux disease 10/06/2024 Hypertension 10/06/2024 Orthostatic hypotension 10/06/2024 Pinched nerve 10/06/2024 Chest pain 06/17/2024 Assessment & Plan (06/17/2024 2:16 PM EDT): Discussed nuclear scan for stress test Abnormality of gait 04/30/2024 Poor balance 04/30/2024 Hypercholesteremia 01/01/2024 Assessment & Plan (01/01/2024 1:54 PM EST): This is a chronic medical condition that is stable since last assessment. No changes in treatment are suggested at this time. Was on Atorvastatin Hammer toe 12/26/2023 Sensorineural hearing loss, bilateral 12/26/2023 Anxiety 05/31/2023 Assessment & Plan (01/01/2024 1:57 PM EST): Buspirone is effective Other mechanical complicatio n of implanted electronic neurostimulator, generator, initial encounter 05/04/2020 Overview (12/26/2023): Added automatically from request for surgery [id number] Rheumatoid arthritis 04/29/2020 Assessment & Plan (01/01/2024 1:56 PM EST): Used to take Celocoxib Takes Tylenol No Rheumatology History of atrial fibrillation 12/06/2017 Overview (12/26/2023): Last Assessment & Plan: x1 episode in 2014 S/p ablation with no recurrence On 81 mg ASA Assessment & Plan (01/01/2024 1:51 PM EST): x1 episode in 2014 S/p ablation with no recurrence On 81 mg ASA Benign prostatic hyperplasia with lower urinary tract symptoms 04/07/2016 Assessment & Plan (01/01/2024 1:57 PM EST): ,This is a chronic medical condition that is stable since last assessment. No changes in treatment are suggested at this time. Continue Current meds. Was on Flomax for kidney stones not prostate Recurrent nephrolithiasis 04/07/2016 S/P deep brain stimulator placement 02/29/2016 Assessment & Plan (10/20/2024 10:58 AM EST): Sees Dr. Treadwell every 6 months Assessment & Plan (05/05/2024 1:30 PM EDT): F/up with Neurology Microscopic hematuria 03/23/2015 Ureteral calculus 02/25/2015 Headache 12/29/2014 Essential tremor 09/29/2014 Assessment & Plan (10/06/2024 9:35 AM EST): Add Klonopin CT scan or XR will help Consider Gabapentin or inderal Patient's Medicine is effective at controlling symptoms at current dose and frequency. PDMP reviewed with no evidence of overuse and abuse D/W patient to avoid use of benzodiazepines when consuming alcohol Advised against operating heavy machinery and driving long distances while on medicines. Assessment & Plan (05/05/2024 1:30 PM EDT): Has Deep Brain Stimulator Assessment & Plan (01/01/2024 1:58 PM EST): Follow up with neurology and N/S March 04 is f/up 2011 was when placed Has rechargeable one Allergic rhinitis 05/26/2008 Assessment & Plan (05/05/2024 1:55 PM EDT): D/W patient risks and benefits of steroid injection. Dimpling at site of injection, Increased sugars potentially if Diabetic, Avascular necrosis. Patient has had in past with no adverse reaction. Answered all questions about steroid shot. Assessment & Plan (01/01/2024 1:52 PM EST): Continue Inhaled Nasal spray and antihistamine Carpal tunnel syndrome 05/26/2008 Diverticulosis of colon 05/26/2008 Resolved Problems Problem Noted Date Diagnosed Date Resolved Date Strain of lumbar region 10/20/2024 07/0 05/2025 Assessment & Plan (10/20/2024 11:00 AM EST): Was given Valium by ER Add Baclofen Stretching exercises Had been to therapy a few weeks ago Obesity 10/06/2024 05/11/2025 Seasonal allergies 10/06/2024 Stroke-like symptoms 10/06/2024 025 Tremor 10/06/2024 05/11/2025 Assessment & Plan (10/20/2024 10:52 AM EST): Will need referral to neurology Medicare annual wellness visit, initial 05/05/2024 05/11/2025 Assessment & Plan (05/05/2024 1:29 PM EDT): Colonoscopy every 10 years or Cologuard every 3 years ages 50-75 Flu Vaccine yearly Pneumovax and Prevnar Mammo yearly for women and PSA yearly for men Labs/Screening yearly to rule out Diabetes, Chronic Kidney disease and liver disease Hepatitis Screen forat risk populations Shingles vaccine after 65 if indicated Tetanus Vaccine every 10 years Lipids yearly under the age of 75 If Smoking history: one time CT scan of chest and Ultrasound of Aorta to screen for Anuerysm Cubital tunnel syndrome, left 12/26/2023 05/11/2025 Calculus of kidney 03/23/2015 5 Encounters Date Type Department Care Team Description 05/20/2025 9:00 AM EDT Office Visit [facility] [address] [place] [address] [place] [id number] Lynn Ly, PA Hearing loss of right ear due to cerumen impaction (Primary Dx); Allergic rhinitis due to pollen, unspecified seasonality 05/20/2025 Travel 05/12/2025 Abstract [facility] [address] [facility] [address] [place] [address] Emilia Mayo MD 05/11/2025 1:00 PM EDT Office Visit [facility] [address] [facility] [facility] [address] [place] [address] Lynn Ly PA Medicare annual wellness visit, subsequent (Primary Dx); [...] multiple sites, unspecified whether rheumatoid factor present ([facility]); S/P deep brain stimulator placement; Sensorineural hearing loss, bilateral; Night sweats; Right ear impacted cerumen; Neuropathy; Screening for malignant neoplasm of prostate; Vitamin D deficiency; Weight loss; Overweight 05/11/2025 Bamboo flowsheet [facility] [address] [facility] [facility] [address] [place] [address] Lynn Ly PA 05/11/2025 Travel 04/23/2025 4:50 PM EDT Procedure Visit [facility] [address] [facility] [facility] [address] [place] [address] Nish Alejandro DPM Other polyneuropathy (Primary Dx); Rheumatoid arthritis of other site, unspecified whether rheumatoid factor present ([facility]); Pain due to onychomycosis of toenails of both feet; Xerosis cutis 04/23/2025 Bamboo flowsheet [facility] [address] [facility] [address] [place] [address] Nish Alejandro DPM 04/23/2025 Travel 04/14/2025 3:00 PM EDT Office Visit [facility] [address] [facility] [address] [place] [address] Emilia Mayo MD Simple chronic bronchitis (HCC) (Primary Dx) 04/14/2025 Travel 04/01/2025 Telephone [facility] [address] [place] [address] Yun Mehta Script called in (He came down with the same thing Valeria had with cough and wanted to know if you would call in Benzonatate 200mg in for him.) 03/04/2025 2:30 PM EDT Office Visit [facility] [address] [facility] [address] [place] [address] Lynn Ly PA Seasonal allergic rhinitis due to pollen (Primary Dx); Essential tremor; Unspecified atrial fibrillation (HCC) 03/04/2025 Bamboo flowsheet [facility] [address] [facility] [address] [place] [address] Lynn Ly PA 03/04/2025 Travel from Last 3 Months Immunizations Immunization Administration Dates Next Due ABRYSVO - Respiratory syncyt ial virus (RSV), vaccine, bivalent, protein subunit RSV prefusion F, diluent reconstituted, 0.5 mL, PF 09/10/2024 Pneumococcal Conjugate PCV 13 08/30/2015 Pneumococcal Polysaccharide PPSV23 09/18/2018, SARS-COV-2 (COVID-19) vaccin e, mRNA, spike protein, LNP, PF, 50 mcg/0.5 mL 09/10/2024 Family History Medical History Relation Name Comments Stroke Father Cancer Mother Leukemia Mother Relation Name Status Comments Father Mother Social History Tobacco Use Types Packs/Day Years Used Date Smoking Tobacco: Former Cigarettes Passive Smoke Exposure: Past Smokeless Tobacco: Never Tobacco Cessation:Counseling Given: Yes Alcohol Use Standard Drinks/Week Comments Never 0 [...] AM EDT Temperature - - Respiratory Rate 16 05/11/2025 1:19 PM EDT Oxygen Saturation 95% 05/20/2025 8:43 AM EDT Inhaled Oxygen Concentration - - Weight 95.7 kg (211 lb) 05/20/2025 8:43 AM EDT Height 188 cm (6' 2 ) 05/20/2025 8:43 AM EDT Body Mass Index 27.09 05/20/2025 8:43 AM EDT Plan of Treatment Upcoming Encounters Date Type Department Care Team ([facility] st Contact Info) Description 07/02/2025 3:10 PM EDT Procedure Visit [facility] [address] [facility] [address] [place] [address] Nish Alejandro DPM 3006 [facility] 5 [place] [address] 11/11/2025 9:00 AM EST Office Visit [facility] [address] [facility] [facility] [address] [place] [address] Lynn Ly PA 112 [facility] 110 [place] [address] Health Maintenance Due Date Last Done Comments Influenza Vaccine (#1) 2025 Medicare Annual Wellness (AWV) 05/11/2026 0 05/11/2025, 05/05/2024, 07/19/2023 Pneumococcal Vaccine: 65+ Years Completed 09/18/2018, 08/30/2015, 08/05/2015 Procedures Procedure Name Priority Date/Time Associated Diagnosis Comments UT REMOVAL IMPACTED CERUMEN INSTRUMENTATION UNILAT Routine 05/20/2025 9:03 AM EDT Hearing loss of right ear due to cerumen impaction from Last 3 Months Results * UT REMOVAL IMPACTED CERUMEN INSTRUMENTATION UNILAT (05/20/2025 9:03 AM EDT) Lynn Jernigan PA - 05/20/2025 9:03 AM EDT ROMA [...] BRANDON IN CLINIC/BEDSIDE ORDERABLES F inal Result from Last 3 Months Insurance MEDICARE [facility] Advance Directives Documents on File Type Date Recorded Patient Trimming Cutter Expl anation Power of Straightening Machine Feeder 03/25/2025 12:54 PM Care Teams Weaving Professor Relationship Specialty Start Date End Date Emilia Mayo MD [address] [place] [address] [address] [place] [address] PCP - General Family Medicine 01/31/24
--- OUTSIDE RECORDS SUMMARY | 2025-05-20 09:23 | XMS_ITS | Encounter Summary ---
Author Organization [facility] Address [address] [place] [address] Care Team Providers Care Greens Cutter Name Role Phone Emilia Mayo MD Primary Care Provider [phone] Encounter Details Date Type Department Care Team (Late Contact Info) Description 06/17/2024 Abstract [facility] [address] [place] [address] mEilia Mayo MD [address] [facility] 110 [place] [address] Social History Tobacco Use Types Packs/Day Years [...] PODIATRY [address] [place] [address] Nish Alejandro DPM 3006 [facility] 5 [place] [address] 11/11/2025 9:00 AM EST Office Visit [facility] [address] [place] [place] [address] Lynn Ly, ROMA [address] [place] [address] documented as of this encounter Visit Diagnoses Not on filedocumented in this encounter Care Teams Greens Cutter Relationship Specialty Start Date End Date Emilia Mayo MD 112 [facility] 110 [place] [address] PCP - General Family Medicine 01/31/24 documented as of this encounter
--- OUTSIDE RECORDS SUMMARY | 2025-05-20 09:23 | XMS_ITS | Encounter Summary ---
Author Organization [employer] Address [id number] [address] [place] [address] Care Team Providers Care Glass Cylinder Flanger Name Role Phone Jun Carrasco MD Primary Care Provider [phone] Encounter Details Date Type Department Care Team (Late st Contact Info) Description 09/17/2023 Orders Only [facility] [address] [place] [address] Jun Carrasco MD 605 [place] [address] Social History Tobacco Use Types Packs/Day Years [...] documented as of this encounter Care Teams Glass Cylinder Flanger Relationship Specialty Start Date End Date Jun Carrasco MD [address], [place] [id number] PCP - General Internal Medicine 03/23/23 [facility] Nurse - SignalLam 06/14/23 documented as of this encounter
--- OUTSIDE RECORDS SUMMARY | 2025-05-20 09:23 | XMS_ITS | Encounter Summary ---
Author Organization [facility] Address [address] [place] [address] Care Team Providers Care Fretted Instrument Repairer Name Role Phone Emilia Mayo MD Primary Care Provider [phone] Encounter Details Date Type Department Care Team (Late Contact Info) Description 02/26/2024 Abstract [facility] [address] [facility] 110 [place] [address] Emilia Mayo MD [address] [facility] 110 [place] [address] Social History Tobacco Use Types Packs/Day Years Used Date Smoking Tobacco: Former Cigarettes Passive Smoke Exposure: Past Smokeless Tobacco: Never Alcohol Use Standard Drinks/Week Comments Never 0 (1 standard drink = 0.6 oz pur e alcohol) Sex and Gender Information Value Date Recorded Sex Assigned at Not on file Legal Sex Male 6:48 PM EDT Gender Identity Not on file Sexual Orientation Not on file documented as of this encounter Plan of Treatment Upcoming Encounters Date Type Department Care Team (Late Contact Info) Description 07/02/2025 3:10 PM EDT Procedure Visit [facility] [address] [facility] [address] [place] [address] Nish Alejandro, DPM 3006 [facility] 5 [place] [address] 11/11/2025 9:00 AM EST Office Visit [facility] [address] [place] [address] [place] [address] Lynn Ly, PA [address] [place] [address] documented as of this encounter Visit Diagnoses Not on filedocumented in this encounter Care Teams Fretted Instrument Repairer Relationship Specialty Start Date End Date Emilia Mayo MD [address] [address] PCP - General Family Medicine 01/31/24 documented as of this encounter
--- OUTSIDE RECORDS SUMMARY | 2025-05-20 09:23 | XMS_ITS | Encounter Summary ---
Author Organization [facility] Address [address] [place] [address] Care Team Providers Care Systems Tester Name Role Phone Emilia Mayo MD Primary Care Provider [phone] Encounter Details Date Type Department Care Team (Late Contact Info) Description 06/17/2024 Orders Only [facility] [address] [facility] [address] [place] [address] Unallocated, N[facility] Provider, [address] [place] [address] Social History Tobacco Use Types Packs/Day Years [...] CI PODIATRY [address] [place] [place] [address] Nish Alejandro DPM 3006 [facility] 5 [place] [address] 11/11/2025 9:00 AM EST Office Visit [facility] [address] [facility] [address] [place] [address] Lynn Ly, PA [address] [place] [address] documented as of this encounter Procedures Procedure Name Priority Date/Time Associated Diagnosis Comments ELECTROCARDIOGRAM REPORT Routine 024 3:23 PM EDT documented in this encounter Results * Electrocardiogram Report (06/17/2024 3:23 PM EDT) us [facility] Provider Unallocated MD IN CLINIC/BEDSIDE O RDERABLES Final Result documented in this encounter Visit Diagnoses Not on filedocumented in this encounter Care Teams Systems Tester Relationship Specialty Start Date End Date Emilia Mayo MD [address] [place] [address] PCP - General Family Medicine 01/31/24 documented as of this encounter
--- OUTSIDE RECORDS SUMMARY | 2025-05-20 09:23 | XMS_ITS | Encounter Summary ---
Author Organization [employer] Address [id number] [address] [place] [address] Care Team Providers Care Hyperbaric Tech Name Role Phone Jun Carrasco MD Primary Care Provider [phone] Encounter Details Date Type Department Care Team (Late st Contact Info) Description 07/26/2023 Orders Only [facility] [address] [place] [address] Jun Carrasco MD [address] [place] [address] Anxiety; Tremor Social History Tobacco Use Types Packs/Day Years [...] as of this encounter Visit Diagnoses Diagnosis Anxiety Anxiety state, unspecified Tremor Abnormal involuntary movements documented in this encounter Additional Health Concerns Assessment Noted Time PHQ-9 Depression Total Score: 0 07/19/20 23 9:00 AM EDT documented as of this encounter Care Teams Hyperbaric Tech Relationship Specialty Start Date End Date Jun Carrasco MD [address], [place] [id number] PCP - General Internal Medicine 03/23/23 [facility] Nurse - SignalLam 06/14/23 documented as of this encounter
--- OUTSIDE RECORDS SUMMARY | 2025-05-20 09:23 | XMS_ITS | Encounter Summary ---
Author Organization [facility] Address [address] [place] [address] Care Team Providers Care Irs Agent Name Role Phone Emilia Mayo MD Primary Care Provider [phone] Encounter Details Date Type Department Care Team (Late Contact Info) Description 06/17/2024 Abstract [facility] [address] [facility] [address] [place] [address] Emilia Mayo MD [address] [facility] 110 [place] [address] Social History Tobacco Use Types Packs/Day Years [...] [address] [place] [address] Nish Alejandro DPM 3006 [facility] 5 [place] [address] 11/11/2025 9:00 AM EST Office Visit [facility] [address] [place] [address] [place] [address] Lynn Ly, ROMA [address] [place] [address] documented as of this encounter Visit Diagnoses Not on filedocumented in this encounter Care Teams Irs Agent Relationship Specialty Start Date End Date Emilia Mayo MD 112 [facility] 110 [place] [address] PCP - General Family Medicine 01/31/24 documented as of this encounter
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
--- OUTSIDE RECORDS SUMMARY | 2025-05-20 09:23 | XMS_ITS | Encounter Summary ---
Author Organization [facility] Address [address] [place] [address] Care Team Providers Care Aluminum Pourer Name Role Phone Emilia Mayo MD Primary Care Provider [phone] Encounter Details Date Type Department Care Team (Late Contact Info) Description 05/06/2024 Abstract [facility] [address] [facility] [address] [place] [address] Emilia Mayo MD [address] [facility] 110 [place] [address] Social History Tobacco Use Types Packs/Day Years [...] PODIATRY [address] [facility] [address] [place] [address] Nish Alejandro DPM 3006 [facility] 5 [place] [address] 11/11/2025 9:00 AM EST Office Visit [facility] [address] [facility] [address] [place] [address] Lynn Ly, ROMA [address] [facility] [address] [place] [address] documented as of this encounter Visit Diagnoses Not on filedocumented in this encounter Care Teams Aluminum Pourer Relationship Specialty Start Date End Date Emilia Mayo MD 112 [facility] 110 [place] [address] PCP - General Family Medicine 01/31/24 documented as of this encounter
--- OUTSIDE RECORDS SUMMARY | 2025-05-20 09:23 | XMS_ITS | Encounter Summary ---
Author Organization [facility] Address [address] [place] [address] Care Team Providers Care Limousine Driver Name Role Phone Emilia Mayo MD Primary Care Provider Encounter Details Date Type Department Care Team (Late st Contact Info) Description 05/11/2025 Bamboo flowsheet [facility] [address] [facility] [address] [place] [phone] Lynn Ly PA [address] [facility] [address] [place] [address] Social History Tobacco Use Types Packs/Day Years [...] television Not at all 05/11/2025 12:00 PM EDT Lamar Maynard L PN Moving or speaking so slowly that other people could have noticed? Or the opposite - being so fidgety or restless that you have been moving around a lot more than usual. Not at all 05/11/2025 12:00 PM EDT Lamar Maynard LPN Thoughts that you would be better off or hurting yourself in some way Not at all 05/11/2025 12:00 PM EDT Lamar Maynard LPN Patient Health Questionnaire -9 Score 0 05/11/2025 12:00 PM EDT Lamar Maynard L PN documented as of this encounter Plan of Treatment Upcoming Encounters Date Type Department Care Team (Late st Contact Info) Description 07/02/2025 3:10 PM EDT Procedure Visit [facility] PODIATRY 112 [facility] 120 [place] [address] Nish Alejandro DPM 3006 [facility] 5 [place] [address] 11/11/2025 9:00 AM EST Office Visit [facility] 112 [facility] 110 [place] [address] Lynn Ly PA 112 [facility] 110 [place], [place] [address] documented as of this encounter Visit Diagnoses Not on filedocumented in this encounter Additional Health Concerns Assessment Noted Time PHQ-9 Depression Total Score: 0 07/07/20 25 12:00 PM EDT documented as of this encounter Care Teams Limousine Driver Relationship Specialty Start Date End Date Emilia Mayo MD [address] [address] PCP - General Family Medicine 01/31/24 documented as of this encounter
--- OUTSIDE RECORDS SUMMARY | 2025-05-20 09:23 | XMS_ITS | Encounter Summary ---
Author Organization [facility] Address [address] [place] [address] Care Team Providers Care Roundhouse Worker Name Role Phone Emilia Lucas MD Primary Care Provider [phone] Encounter Details Date Type Department Care Team (Late Contact Info) Description 07/03/2024 Clinisync Result Encounter [facility] External Department Unsolicited Emilia Lucas MD 112 [facility] 110 [place] [address] Social History Tobacco Use Types Packs/Day Years [...] Procedure Visit [facility] PODIATRY 112 [facility] 120 [place] [address] Nish Alejandro, DPM 3006 [facility] 5 [place] [address] 11/11/2025 9:00 AM EST Office Visit [facility] [address] [facility] 110 [place] [address] Lynn Ly, PA 112 [facility] 110 [place] [address] documented as of this encounter Procedures Procedure Name Priority Date/Time Associated Diagnosis Comments NM MARLENE PERF SPECT REST STR 07/03/2024 2:51 PM EDT documented in this encounter Results * NM MARLENE PERF SPECT REST STR (07/03/2024 2:51 PM EDT) Anatomical Region Laterality Modality Other 07/03/2024 2:51 PM EDT Narrative 07/03/2024 2:52 [place] [address] Nuclear Medicine Report Signed Patient: CHAZ MARROQUIN MR#: [id number] : 1945 Acct:[id number] Age/Sex: 78 / M ADM Date: 07/02/24 Loc: [place] Attending Dr: EMILIA LUCAS Ordering Physician: EMILIA LUCAS Date of Service: 07/02/24 Procedure(s): NM marlene perf SPECT rest str Accession Number(s): [id number] cc: EMILIA LUCAS Patient Name: CHAZ MARROQUIN MR#: [id number] : 1945 Exam Date: 07/02/2024 Ordering Doctor: DR EMILIA LUCAS M.D. RADIOLOGY REPORT PROCEDURE: NM MARLENE PERF SPECT REST STR COMPARISON: None. INDICATIONS: CHEST PAIN TECHNIQUE: Exam Description: Stress/Rest one day protocol gated SPECT Rest Imagin.4 mCi Tc-99m Cardiolite IV on 07/02/2024 Stress Imaging 30.7 mCi Tc-99m Cardiolite IV on 07/02/2024 Exercise Protocol: 0.4 mg Lexiscan given IV Heart Rate (bpm): Rest: 67 Max: 118 PMHR: 82 Blood Pressure: Rest: 144/88 Max: 146/86 Symptoms: Rest and peak stress ECG findings were normal and the exercise portion of the study was normal per attending physician Dr. Crowder . For more details please see separate cardiac stress test report. FINDINGS: QUALITY OF STUDY: Good. PERFUSION DEFECT: LOCATION: Basal inferior. Mid-inferior. SIZE: Small (1-2 segments). SEVERITY: Mild. TYPE: Persistent. WALL MOTION: Normal. LV SIZE: Normal. 92 mL. TID / TCD: None; 0.9 LVEF: Normal. Calculated EF 65%. SUMMARY: Myocardial perfusion imaging study has ABNORMAL findings. CONCLUSION: 1. Small fixed defect in the inferior wall, RCA distribution 2. No reversible ischemia 3. Normal exercise test Dictated by: Manny Morales MD on 07/03/2024 at 14:37 Approved by: Manny Morales MD on 07/03/2024 at 14:51 Dictated By: Manny Morales M.D. Signed By: 07/03/24 1452 DD/ 145 TD/TT: Hunting Sales Associate: Procedure Note Radiology, Radiologist, MD - 07/03/2024 [place] [address] Nuclear Medicine Report Signed Patient: CHAZ MARROQUIN FMR#: [id number] : 1945cct:[id number] Age/Sex: 78 / MADM Date: 07/02/24 Loc: [place] Attending Dr: EMILIA LUCAS Ordering Physician: EMILIA LUCAS Date of Service: 07/02/24 Procedure(s): NM marlene perf SPECT rest str Accession Number(s): [id number] cc: EMILIA LUCAS Patient Name: CHAZ MARROQUIN MR#: [id number] : 1945 Exam Date: 07/02/2024 Ordering Doctor: DR EMILIA LUCAS M.D. RADIOLOGY REPORT PROCEDURE: NM MARLENE PERF SPECT REST STR COMPARISON: None. INDICATIONS: CHEST PAIN TECHNIQUE: Exam Description: Stress/Rest one day protocol gated SPECT Rest Imagin.4 mCi Tc-99m Cardiolite IV on 07/02/2024 Stress Imaging 30.7 mCi Tc-99m Cardiolite IV on 07/02/2024 Exercise Protocol: 0.4 mg Lexiscan given IV Heart Rate (bpm): Rest: 67 Max: 118 PMHR: 82 Blood Pressure: Rest: 144/88 Max: 146/86 Symptoms: Rest and peak stress ECG findings were normal and the exercise portion ofthe study was normal per attending physician Dr. Crowder . For more detailsplease see separate cardiac stress test report. FINDINGS: QUALITY OF STUDY: Good. PERFUSION DEFECT: LOCATION: Basal inferior. Mid-inferior. SIZE: Small (1-2 segments). SEVERITY: Mild. TYPE: Persistent. WALL MOTION: Normal. LV SIZE: Normal. 92 mL. TID / TCD: None; 0.9 LVEF: Normal. Calculated EF 65%. SUMMARY: Myocardial perfusion imaging study has ABNORMAL findings. CONCLUSION: 1. Small fixed defect in the inferior wall, RCA distribution 2. No reversible ischemia 3. Normal exercise test Dictated by: Manny Morales MD on 07/03/2024 at 14:37 Approved by: Manny Morales MD on 07/03/2024 at 14:51 Dictated By: Manny Morales M.D. Signed By:07/03/24 1452 DD/ 1451 TD/TT: Hunting Sales Associate: Emilia Lucas MD [facility] Final Result documented in this encounter Visit Diagnoses Not on filedocumented in this encounter Care Teams Roundhouse Worker Relationship Specialty Start Date End Date Emilia Lucas MD [address] [place] [address] PCP - General Family Medicine 01/31/24 documented as of this encounter
--- OUTSIDE RECORDS SUMMARY | 2025-05-20 09:23 | XMS_ITS | Encounter Summary ---
Author Organization [employer] Address [id number] [address] [place] [address] Care Team Providers Care Consulting Software Engineer Name Role Phone Jun Carrasco MD Primary Care Provider [phone] Encounter Details Date Type Department Care Team (Late st Contact Info) Description 09/11/2023 Orders Only [facility] [address] [place] [address] Jun Carrasco MD [address] [facility] [place] [address] Vitamin D deficiency Social History [...] documented as of this encounter Care Teams Consulting Software Engineer Relationship Specialty Start Date End Date Jun Carrasco MD [address], [place] [address] PCP - General Internal Medicine 03/23/[address] [facility] 06/14/23 documented as of this encounter
--- OUTSIDE RECORDS SUMMARY | 2025-05-20 09:23 | XMS_ITS | Encounter Summary ---
Author Organization [facility] Address [address] [place] [address] Care Team Providers Care Instructional Leader Name Role Phone Emilia Mayo MD Primary Care Provider Encounter Details Date Type Department Care Team (Latest Contact Info) Description 05/11/2025 Travel Social History Tobacco Use Types Packs/Day [...] Visit [facility] PODIATRY [address] [facility] 120 [place] [address] Nish Alejandro DPM 3006 [facility] 5 [place] [address] 11/11/2025 9:00 AM EST Office Visit [facility] [address] [facility] 110 [place] [address] Lynn Ly PA [address] [facility] 110 [place] [address] documented as of this encounter Visit Diagnoses Not on filedocumented in this encounter Additional Health Concerns Assessment Noted Time PHQ-9 Depression Total Score: 0 05/11/20 25 12:00 PM EDT documented as of this encounter Care Teams Instructional Leader Relationship Specialty Start Date End Date Emilia Mayo MD [address] [facility] 110 [place] [address] PCP - General Family Medicine 01/31/24 documented as of this encounter
--- OUTSIDE RECORDS SUMMARY | 2025-05-20 09:23 | XMS_ITS | Encounter Summary ---
Author Organization [facility] Address [address] [place] [address] Care Team Providers Care Nut Cracker Name Role Phone Emilia Mayo MD Primary Care Provider [phone] Encounter Details Date Type Department Care Team (Late Contact Info) Description 03/06/2024 Abstract [facility] [address] [facility] 110 [place] [address] Emilia Mayo MD [address] [facility] 110 [place] [address] Social History Tobacco Use Types Packs/Day Years [...] CI PODIATRY [address] [facility] [address] [place] [address] Nish Alejandro, DPM 3006 [facility] 5 [place] [address] 11/11/2025 9:00 AM EST Office Visit [facility] [address] [facility] [address] [place] [address] Lynn Ly, PA [address] [facility] [address] [place] [address] documented as of this encounter Visit Diagnoses Not on filedocumented in this encounter Care Teams Nut Cracker Relationship Specialty Start Date End Date Emilia Mayo MD [address] [address] PCP - General Family Medicine 01/31/24 documented as of this encounter
--- OUTSIDE RECORDS SUMMARY | 2025-05-20 09:23 | XMS_ITS | Encounter Summary ---
Author Organization [facility] Address [address] [place] [address] Care Team Providers Care Ethylene Plant Operator Name Role Phone Emilia Mayo MD Primary Care Provider [phone] Encounter Details Date Type Department Care Team (Late Contact Info) Description 10/21/2024 Abstract [facility] [address] [facility] 110 [place] [address] Emilia Mayo MD [address] [facility] 110 [place] [address] Social History Tobacco Use Types Packs/Day Years [...] [address] [facility] [address] [place] [address] Nish Alejandro DPM 3006 [facility] 5 [place] [address] 11/11/2025 9:00 AM EST Office Visit [facility] [address] [facility] [address] [place] [address] Lynn Ly, ROMA [address] [facility] [address] [place] [address] documented as of this encounter Visit Diagnoses Not on filedocumented in this encounter Care Teams Ethylene Plant Operator Relationship Specialty Start Date End Date mEilia Mayo MD 112 [facility] 110 [place] [address] PCP - General Family Medicine 01/31/24 documented as of this encounter
--- OUTSIDE RECORDS SUMMARY | 2025-05-20 09:23 | XMS_ITS | Encounter Summary ---
Author Organization [facility] Address [address] [place] [address] Care Team Providers Care Court Abstractor Name Role Phone Emilia Mayo MD Primary Care Provider [phone] Encounter Details Date Type Department Care Team (Late Contact Info) Description 11/14/2023 Abstract [facility] [address] [facility] 110 [place] [address] Emilia Mayo MD [address] [facility] 110 [place] [address] Social History Tobacco Use Types Packs/Day Years [...] CI PODIATRY [address] [facility] [address] [place] [address] Nish Alejandro, DPM 3006 [facility] 5 [place] [address] 11/11/2025 9:00 AM EST Office Visit [facility] [address] [facility] [address] [place] [address] Lynn Ly, PA [address] [facility] [address] [place] [address] documented as of this encounter Visit Diagnoses Not on filedocumented in this encounter Care Teams Court Abstractor Relationship Specialty Start Date End Date Emilia Mayo MD [address] [address] PCP - General Family Medicine 01/31/24 documented as of this encounter
--- OUTSIDE RECORDS SUMMARY | 2025-05-20 09:23 | XMS_ITS | Encounter Summary ---
Author Organization [employer] Address [id number] [address] [place] [address] Care Team Providers Care Deputy Grand Jury Name Role Phone Jun Reynoso MD Primary Care Provider [phone] Encounter Details Date Type Department Care Team (Late st Contact Info) Description 05/23/2023 Telephone [facility] [address] [place] [address] [place] [address] Miguelangel Gonzalez CMA Social History Tobacco Use Types Packs/Day Years Used Date Smoking Tobacco: Former Alcohol Use Standard Drinks/Week Comments No 0 (1 standard drink = 0.6 oz pur e alcohol) PHQ-2 Answer Date Recorded Total Score 0 03/22/2023 Childcare Answer Date Recorded Childcare Unknown 04/16/2019 [...] Telephone Encounter - Miguelangel Gonzalez CMA - 05/23/2023 11:56 AM EDT Patients called in with clarification on his current Celebrex medication, she stated that the original order was once a day and is currently written for BID. She just wanted to clarify that patient should be taking Celebrex BID not once daily. Please advise. * Telephone Encounter - Jun Reynoso MD - 05/23/2023 11:56 AM EDT Celebrex is an as-needed medication for pain control. They can use 1 per day if that is all they need to control the pain. The maximum 24 hour allowed dose is 2 tablets per day. If they have additional questions I am happy to discuss over the phone. Please call and notify patient. Thanks, JUN REYNOSO MD 05/23/23 * Telephone Encounter - Miguelangel Gonzalez CMA - 05/23/2023 11:56 AM EDT Patient was called and notified, stated they understood and would take as needed. documented in this encounter Plan of Treatment Not on file documented as of this encounter Visit Diagnoses Not on filedocumented in this encounter Additional Health Concerns Assessment Noted Time PHQ-9 Depression Total Score: 0 03/22/20 2:40 PM EDT documented as of this encounter Care Teams Deputy Grand Jury Relationship Specialty Start Date End Date Jun Reynoso MD 605 [facility] [place] [address] PCP - General Internal Medicine 03/23/23 [facility] 06/14/23 documented as of this encounter
--- OUTSIDE RECORDS SUMMARY | 2025-05-20 09:23 | XMS_ITS | Encounter Summary ---
Author Organization [employer] Address [id number] [address] [place] [address] Care Team Providers Care Shorthand Reporter Name Role Phone Jun Carrasco MD Primary Care Provider [phone] Reason for Visit * Reason Comments Med Refill Encounter Details Date Type Department Care Team (Late st Contact Info) Description 05/29/2023 Refill [facility] [address] [place] [address] Jun Carrasco MD [address] [place] [address] Anxiety; Essential tremor Social History Tobacco Use Types Packs/Day Years [...] Visit Diagnoses Diagnosis Anxiety Anxiety state, unspecified Essential tremor documented in this encounter Additional Health Concerns Assessment Noted Time PHQ-9 Depression Total Score: 0 03/22/20 23 2:40 PM EDT documented as of this encounter Care Teams Shorthand Reporter Relationship Specialty Start Date End Date Jun Carrasco MD [address], [place] [address] PCP - General Internal Medicine 03/23/23 [facility] Nurse - [employer] 06/14/23 documented as of this encounter
--- OUTSIDE RECORDS SUMMARY | 2025-05-20 09:23 | XMS_ITS | Encounter Summary ---
Author Organization [employer] Address [id number] [address] [place] [address] Care Team Providers Care Gift Officer Name Role Phone Jun Carrasco MD Primary Care Provider [phone] Encounter Details Date Type Department Care Team (Late st Contact Info) Description 05/28/2023 Refill [facility] [address] [place] [address] [place] [address] Shanta Flanagan CMA Anxiety; Essential tremor Social History Tobacco Use [...] documented as of this encounter Care Teams Gift Officer Relationship Specialty Start Date End Date Jun Carrasco MD [address], [place] [address] PCP - General Internal Medicine 03/23/23 [facility] Nurse - [facility] 06/14/23 documented as of this encounter
--- OUTSIDE RECORDS SUMMARY | 2025-05-20 09:23 | XMS_ITS | Encounter Summary ---
Author Organization [facility] Address [address] [place] [address] Care Team Providers Care Roller Pneumatic Name Role Phone Emilia Mayo MD Primary Care Provider [phone] Encounter Details Date Type Department Care Team (Late Contact Info) Description 11/14/2023 Abstract [facility] [address] [facility] 110 [place] [address] Emilia Mayo MD [address] [facility] 110 [place] [address] Social History Tobacco Use Types Packs/Day Years [...] CI PODIATRY [address] [facility] [address] [place] [address] Nish Alejandro, DPM 3006 [facility] 5 [place] [address] 11/11/2025 9:00 AM EST Office Visit [facility] [address] [facility] [address] [place] [address] Lynn Ly, PA [address] [facility] [address] [place] [address] documented as of this encounter Visit Diagnoses Not on filedocumented in this encounter Care Teams Roller Pneumatic Relationship Specialty Start Date End Date Emilia Mayo MD [address] [address] PCP - General Family Medicine 01/31/24 documented as of this encounter
--- OUTSIDE RECORDS SUMMARY | 2025-05-20 09:23 | XMS_ITS | Encounter Summary ---
Author Organization [employer] Address [facility] [id number] [address] [place] [address] Care Team Providers Care Asbestos Shingle Inspector Name Role Phone Jun Carrasco MD Primary Care Provider [phone] Encounter Details Date Type Department Care Team (Late st Contact Info) Description 05/11/2023 Telephone [facility] [address] [place] [address] Jun Carrasco MD 605 [facility] [place] [address] Social History Tobacco Use Types Packs/Day Years Used Date Smoking Tobacco: Former Alcohol Use Standard Drinks/Week Comments No 0 (1 standard drink = 0.6 oz pur e alcohol) PHQ-2 Answer Date Recorded Total Score 0 03/22/2023 Childcare Answer Date Recorded Childcare Unknown 04/16/2019 Employment Answer Date Recorded Employment Unknown 04/16/2019 Purpose - Life Answer Date Recorded Purpose [...] documented as of this encounter Care Teams Asbestos Shingle Inspector Relationship Specialty Start Date End Date Jun Carrasco MD [address] [facility] [place] [address] PCP - General Internal Medicine 03/23/23 [facility] Nurse - [employer] 06/14/23 documented as of this encounter
[2025-05-20 09:56] LABS: Hematocrit 49.4 % (42.0-54.0); Hemoglobin 17.0 g/dL (14.0-18.0); Immature Granulocytes Abs Auto 0.01 10^3/uL (0.00-0.03); Immature Granulocytes Pct Auto 0.1 % (0.0-0.5); Lymphocytes Absolute Auto 1.8 10^3/uL (1.2-3.8); Mean Corpuscular HGB Conc 34.4 g/dL (29.9-35.2); Mean Corpuscular Hemoglobin 32.0 pg (25.9-34.0); Mean Corpuscular Volume 92.9 fL (80.0-94.0); Platelet Count 218 10^3/uL (150-450); Red Blood Count 5.32 10^6/uL (4.70-6.10); White Blood Count 7.3 10^3/uL (4.0-11.0)
[2025-05-20 10:34] LABS: Alanine Aminotransferase 24 U/L (16-63); Albumin Globulin Ratio 0.9; Albumin Level 3.7 g/dL (3.4-5.0); Alkaline Phosphatase 59 U/L (46-116); Anion Gap 15.4; Aspartate Amino Transferase 24 U/L (15-37); Blood Urea Nitrogen 17.0 mg/dL (7.0-18.0); Calcium 9.3 mg/dL (8.5-10.1); Carbon Dioxide 25.0 mmol/L (21.0-32.0); Chloride 106 mmol/L (98-107); Cholesterol 229 mg/dL (<=200); Estimated GFR (African America >60 (>=60 mL/min/1.73m^2); Estimated GFR (Non-African Ame >60 (>=60 mL/min/1.73m^2); Globulin 4.2 g/dL; Glucose 91 mg/dL (74-106); HDL Cholesterol 54 mg/dL (40-60); Potassium 4.4 mmol/L (3.5-5.1); Sodium 142 mmol/L (136-145); TSH W/ REFLEX FT4 2.170 uIU/mL (0.358-3.740); Total Protein 7.9 g/dL (6.4-8.2); Triglycerides 65 mg/dL (<=150); VLDL CHOLESTEROL 13.0 mg/dL
[2025-05-20 11:05] LABS: Folate 32.50 ng/mL (8.60-58.90)
[2025-05-21 04:07] LABS: Vitamin B12 797 pg/mL (232-1245)
== END 2025-05-20 09:15 | disposition home or self-care (01) ==
PROVIDERS: PCP Family Medicine; Visit Provider Physician Assistant
DX: Z00.00 Encounter for general adult medical examination without abnormal findings (principal); I48.0 Paroxysmal atrial fibrillation; I10 Essential (primary) hypertension; E78.00 Pure hypercholesterolemia, unspecified; R63.4 Abnormal weight loss; Z12.5 Encounter for screening for malignant neoplasm of prostate; R61 Generalized hyperhidrosis; G62.9 Polyneuropathy, unspecified; E55.9 Vitamin D deficiency, unspecified; G25.0 Essential tremor
CPT/HCPCS: 36415; 80053; 80061; 82306; 82607; 82746; 84443; 85025; G0103